=== PATIENT | male | born 1960 | race Caucasian/White ===

== ENCOUNTER 2024-12-07 22:47 | Inpatient (IN) | payer MEDICARE, BC, SELFPAY ==
[2024-12-07 22:50] VITALS: PULSE 108; O2SAT 92
[2024-12-07 22:57] VITALS: BP 111/74; PULSE 88; RESP 16; TEMP 36.9; O2SAT 89; BMI 28.5
--- NOTE | 2024-12-07 23:53 | XR_ITS ---
Examination: AP chest single view Technique one AP portable semiupright chest single view Exam date and time: December 08, 2024 12:19 AM Comparison March 07, 2024. INDICATIONS: Difficulty breathing today congestion and shortness of breath FINDINGS: Left perihilar pneumonia Normal heart size Moderate vascular congestion. Right internal jugular dialysis catheter tips SVC satisfactory position IMPRESSION: Significant left lung pneumonia
--- NOTE | 2024-12-07 23:55 | PD.EDAMS ---
Altered Mental Status RME/HPI General Chief Complaint: Altered Mental Status Stated Complaint: AMS Source: family Arrival date/time: 12/07/24 22:47 Mode of arrival: EMS Limitations: altered mental status RME / HPI RME / HPI narrative: Dr. Estevez?s Main ED Evaluation: 64-year-old male brought to the emergency department by ambulance due to altered mental status and severe hypoglycemia. The fire department on scene reported a blood glucose of 23 mg/dL, although the patient was still alert, oriented to person, place, time, and situation, and responsive. Upon EMS arrival, oral glucose was administered but the patient vomited shortly after. A re-check of his blood glucose showed a level of 28 mg/dL, prompting EMS to initiate a 250 mL infusion of D10. EMS also noted bilateral rhonchi on auscultation, with an oxygen saturation of 92% on a 15L non-rebreather mask (NRB). The patient's family reported a history of nausea, vomiting, and significant weight loss over the past month. He has history of gastric bypass surgery in October 2023. He has since experienced decreased oral intake, with worsening symptoms over the past few days, including an inability to keep food or fluids down. The patient is also on a regular dialysis schedule (Sunday, , and Sunday) and is under the care of bulb brander Dr. Chadwick. Related Data Home Medications ?Medication ?Instructions ?Recorded ?Confirmed cholecalciferol (vitamin D3) 50 2,000 unit PO QDAY #0 caps 12/19/15 03/07/24 mcg (2,000 unit) capsule (Vitamin D3) vitamin B complex 1 tab PO QDAY 04/01/19 03/07/24 nortriptyline 25 mg capsule 25 mg PO HS 11/12/20 03/07/24 spironolactone 50 mg tablet 50 mg PO QDAY 04/27/21 03/07/24 hydroxyzine HCl 10 mg tablet 10 mg PO QPM 03/07/24 03/07/24 insulin aspart U-100 100 unit/mL 5 unit subcut TID 03/07/24 03/07/24 (3 mL) subcutaneous pen (Novolog FlexPen U-100 Insulin aspart) isosorbide mononitrate 30 mg 30 mg PO QDAY 03/07/24 03/07/24 tablet,extended release 24 hr lisinopril 40 mg tablet 40 mg PO BID 03/07/24 03/07/24 metolazone 2.5 mg tablet 2.5 mg PO QDAY 03/07/24 03/07/24 metoprolol succinate 100 mg 100 mg PO BID 03/07/24 03/07/24 tablet,extended release 24 hr midodrine 10 mg tablet 10 mg PO TID 03/07/24 03/07/24 ursodiol 300 mg capsule 300 mg PO BID 03/07/24 03/07/24 Allergies Allergy/AdvReac Type Severity Reaction Status Date / Time house dust Allergy Verified 12/08/24 03:54 Review of Systems Review of Systems Systems Reviewed: All systems reviewed, normal except as documented Past Medical History Past Medical History NEUROLOGIC: Negative Neurological Disorders or Seizures CARDIAC: Positive Cardiac Disorders, Hypercholesterolemia and Hypertension; Negative Congestive Heart Failure RESPIRATORY: Positive Asthma, Pneumonia and Sleep Apnea; Negative Chronic Obstructive Pulmonary Disease (COPD) GASTROINTESTINAL: Positive Gastrointestinal Disorders and Gastroesophageal Reflux Disease GENITOURINARY: Positive Genitourinary Disorders, Renal Disease and Kidney Stones MUSCULOSKELETAL: Positive Musculoskeletal Disorders and Arthritis ENT: Positive Cataracts ENDOCRINE: Positive Endocrine Disorders, Diabetes Mellitus Type 2 and Hypoglycemia; Negative Diabetes Mellitus Type 1 HEMATOLOGIC: Negative Blood Disorders OTHER HISTORY: Positive Chicken Pox, Measles and Mumps; Negative Autoimmune Disease, Blood Transfusions, Blood Transfusion Reaction or Anesthesia Reactions Family History FAMILY HISTORY: Positive Family Cancer Surgical History SURGICAL: Positive Tonsillectomy and Nephrectomy Social History SMOKING STATUS: Never smoker SECOND HAND EXPOSURE: No ED Exam Narrative Physical exam: GENERAL: In general the patient is awake, interactive, in an emergency department rplain dealing. HEAD/EYES/EARS/NOSE/THROAT: normo-cephalic, atraumatic, mucus membranes are moist. No cervical tenderness palpation midline. Supple neck. CARDIOVASCULAR: regular rate and regular rhythm, no murmurs, heart sounds are not distant, strong pulses in all four extremities that are equal and symmetric bilateral upper and lower extremities, normal capillary refill. CHEST/PULMONARY: normal chest rise and fall, good air movement, clear to auscultation bilaterally, normal inspiratory to expiratory ratios without evidence of respiratory distress. ABDOMEN: soft, not tender, no masses appreciated BACK: normal range of motion without pain. NEUROLOGICAL: cranio-facial features are symmetric, moves all four extremities equally without obvious limitations or weakness. EXTREMITY: no tenderness to palpation over the long bones or large joints of the bilateral upper and lower extremities, no joint swelling, no joint erythema, no signs of trauma, no unilateral leg swelling and no peripheral edema. SKIN: warm, dry, well-perfused, no jaundice, no rash, no telangiectasias or petechia. PSYCH: calm, cooperative, no evidence of psychosis or agitation General Limitations: Present altered mental status Course Course Course Narrative: CXR is ordered for determining etiology of altered mental status. Quality Measures none Orders Category Date Time Status COVID-19 Screening Questionnaire NOW Care 12/08/24 05:37 Active Decision to Admit X1 Care 12/08/24 05:[address] abdomen pelvis wo con Stat Exams 12/08/24 02:23 Taken CXRP [XR chest 1V portable] Stat Exams 12/07/24 23:53 Taken ABG [Arterial Blood Gas] Stat Lab 12/08/24 04:16 Completed BNP [B-Type Natriuretic Peptide] Stat Lab 12/07/24 00:20 Completed Blood Culture (Lab) Stat Lab 12/08/24 03:40 Received CBC Stat Lab 12/07/24 00:20 Completed CMP [Comprehensive Metabolic Panel] Stat Lab 12/07/24 00:20 Completed Lactic Acid [Lactate (Lactic Acid)] Stat Lab 12/08/24 03:45 Results PT [Prothrombin Time with INR] Stat Lab 12/07/24 00:20 Completed PTT [Partial Thromboplastin Time] Stat Lab 12/07/24 00:20 Completed Troponin I Stat Lab 12/07/24 00:20 Completed Acetaminophen Ivpb [Ofirmev Inj] Med 12/08/24 03:39 Discontinued 1,000 mg in 100 ml IV Q6HR Dextrose 50% Syr [D50w Syringe Abboject] Med 12/08/24 00:32 Discontinued 50 ml IV X1 ONE Midodrine [Proamatine] Med 12/08/24 05:34 Discontinued 10 mg PO X1 ONE Ondansetron Inj [Zofran Inj] Med 12/07/24 23:58 Discontinued 4 mg IV X1 ONE Piper/Tazo Inj [Zosyn Inj] 3.375 gm Med 12/08/24 14:00 Pending Sodium Chloride 0.9% [Ns] 100 ml IV Q8HR Piper/Tazo Inj [Zosyn Inj] 3.375 gm Med 12/08/24 04:00 Discontinued Sodium Chloride 0.9% [Ns] 100 ml IV X1 Ringers Lactated 500 ml [Lactated Ringers] 500 ml Med 12/08/24 05:27 Active IV 999 mls/hr BiPAP / CPAP NOW RT 12/08/24 04:02 Active BiPAP / CPAP NOW RT 12/08/24 04:56 Active Vital Signs Vital signs: Vital Signs Temperature 98.4 F 12/07/24 22:57 Pulse Rate 88 12/07/24 22:57 Respiratory Rate 16 12/07/24 22:57 Blood Pressure 111/74 12/07/24 22:57 Pulse Oximetry (%) 89 L 12/07/24 22:57 Oxygen Flow Rate 15 12/07/24 22:57 Altered Mental Status MDM Narrative MDM Narrative:: The differential diagnosis includes aspiration pneumonia, pneumonia, small bowel obstruction (SBO), end-stage renal disease (ESRD), hypercalcemia, complications of his previous surgery, gastroesophageal reflux disease (GERD), and dehydration. 0400 Patient appears tachypneic. CPAP applied. Scribe Attestation: I, Gypsy Levin, am scribing for and in the presence of Dr. Estevez. Provider Notation: Although this document has been carefully reviewed, there may still be some phonetic and other typographical errors. These errors are purely grammatical due to imperfections in the software program and should not be construed in any way to compromise the substance of the patient's medical care during this visit. Patient data External records reviewed:: [facility] previous records and EMS form Clinical information provided by:: EMS and family (sister) Social determinants that could affect healthcare access:: none Patient has the following chronic illnesses:: see PMH How is presenting disease/condition affected by chronic disease/condition?: uneffected by Evaluation data The following diagnostics were reviewed and interpreted by me:: lab results, radiology exam(s) and EKG tracing(s) Lab and/or radiology exams considered but not ordered:: none Interpretation Summary: CXR, my interpretation, overall impression: left sided pneumonia I personally reviewed the radiology data and agree with the radiologist's interpretation. CT scan of the abdomen and pelvis without intravenous contrast December 08, 2024 at 0248 hours Clinical History: 64-year-old hypertension diabetes, vomiting Comparison: No prior study is available for comparison. Findings: There are multiple bilateral lungs nodular ground-glass opacities and consolidations. There is mild esophageal dilatation and wall thickening suggestive of reflux esophagitis. Coronary calcifications is present. Trace of pericardial effusion is noted. Gastric bypass surgery is noted. There are splenic and hepatic calcified granulomas. The gallbladder is distended. There is upper splenic pole ill defined hypodensity; too small to characterize. The right kidney is surgically absent . There is left kidney posterior midpole 3.0 cm cyst. The pancreas, spleen and adrenals are unremarkable on this noncontrast study. No evidence of bowel obstruction. The appendix is within normal limits (images 180-194/340 ). There is no mesenteric or retroperitoneal adenopathy. The prostate is enlarged with calcifications with its median lobe projecting within the bladder lumen. The urinary bladder is incompletely distended at the time of the examination and appears mildly thick walled. There are small fat-containing bilateral inguinal hernias. There is no free fluid or free air. There is atheromatous calcification of aorta Degenerative changes are identified in the spine. There is diffuse osteopenia. There is anterolisthesis of L4 on L5. Impression: 1. Multiple bilateral lungs nodular ground-glass opacities and consolidations, likely pneumonia. Recommend clinical correlation. 2. No evidence of bowel obstruction, free air or abscess. 3. Other findings as described above. Medications / Prescriptions Medications or Prescriptions considered but not ordered:: none Medication administrations:: Medication Administration History Piperacillin Sod/Tazobactam (Sod 3.375 gm/ Sodium Chloride) 100 mls @ 25 mls/hr IV Q8HR ERIC Stop: 12/15/24 13:59 Lactated Ringer's (Lactated Ringers) 500 mls @ 999 mls/hr IV .Q31M ONE Stop: 12/08/24 05:57 Discontinued Medications Dextrose (Dextrose 50%-Water Inj 50 Ml Syringe) 50 ml IV X1 ONE Stop: 12/08/24 00:33 Last Admin: 12/08/24 00:37 Dose: 50 ml Documented By: SCOTT Acetaminophen (Ofirmev Inj) 1,000 mg in 100 mls @ 250 mls/hr IV Q6HR ONE Stop: 12/08/24 04:02 Last Admin: 12/08/24 04:25 Dose: 250 mls/hr Documented By: EF Piperacillin Sod/Tazobactam (Sod 3.375 gm/ Sodium Chloride) 100 mls @ 200 mls/hr IV X1 ONE Stop: 12/08/24 04:29 Last Admin: 12/08/24 04:19 Dose: 200 mls/hr Documented By: EF Midodrine (Midodrine 5 Mg Tablet) 10 mg PO X1 ONE Stop: 12/08/24 05:35 Last Admin: 12/08/24 05:41 Dose: 10 mg Documented By: EF Ondansetron HCl (Ondansetron Inj 2 Mg/Ml Inj 2 Ml) 4 mg IV X1 ONE; Protocol Stop: 12/07/24 23:59 Last Admin: 12/08/24 00:03 Dose: 4 mg Documented By: AC as above if any Consultations Consultation(s) initiated? (list below): Yes Diagnosis Differential diagnosis altered mental status: other (see narrative) Most likely diagnosis given after review of the tests above:: see clinical impression Admission Indicated Admission indicated?: indicated Admission Request Was there a request for admission?: Yes Admission Attestation Admission request attestation: Discussed case with [] from Hospitalist service regarding admission. Discussed patients ED course, exam findings, labs, and radiology results. The Hospitalist [agrees,declines] to accept the patient for admission. Disposition Plan Disposition Plan: Admit Critical Care Time Critical Care Time Critical Care Time: Yes Total Critical Care Time (min.): 45 Attestation: The high probability of sudden, clinically significant deterioration in the patient?s condition required the highest level of my preparedness to intervene urgently. ? The services I provided to this patient were to treat and/or prevent clinically significant deterioration. Services included the following: chart data review, reviewing nursing notes and/or old charts, documentation time, child development consultant collaboration regarding findings and treatment options, medication orders and management, direct patient care, vital sign assessments and ordering, interpreting and reviewing diagnostic studies and lab tests. ? Aggregate critical care time includes only time during which I was engaged in work directly related to the patient?s care, as described above, whether at bedside or elsewhere in the Emergency Department. It did not include time spent performing other reported procedures or the services of residents, students, nurses or physician assistants. Discharge Plan Plan Patient Disposition: Admit Acute Care w/in Hospital Patient condition on transfer: Stable Prescriptions/Referrals Prescriptions/Med Rec: No Action nortriptyline 25 mg capsule 25 mg PO HS spironolactone 50 mg tablet 50 mg PO QDAY cholecalciferol (vitamin D3) [Vitamin D3] 2,000 UNIT capsule 2,000 unit PO QDAY Qty: 0 vitamin B complex Tablet 1 tab PO QDAY metolazone 2.5 mg tablet 2.5 mg PO QDAY isosorbide mononitrate 30 mg tablet extended release 24 hr 30 mg PO QDAY metoprolol succinate 100 mg tablet extended release 24 hr 100 mg PO BID Patient Comments: TAKE 1 TABLET BY MOUTH TWICE DAILY ursodiol 300 mg capsule 300 mg PO BID hydroxyzine HCl 10 mg tablet 10 mg PO QPM Patient Comments: TAKE 1 TABLET BY MOUTH NIGHTLY lisinopril 40 mg tablet 40 mg PO BID midodrine 10 mg Tablet 10 mg PO TID Rx Instructions: do not give last dose of day after 6PM or within 4 hrs of bedtime insulin aspart U-100 [Novolog FlexPen U-100 Insulin] 100 unit/mL (3 mL) insulin pen 5 unit SUBCUT TID Patient Comments: INJECT 5 UNIT SUBCUTANEOUSLY 3 TIMES A DAY BEFORE MEALS Referrals: Sunil Chadwick MD [Primary Care Provider] - In 1 week Problem List Clinical Impression: Sepsis, Left lower lobe pneumonia, ESRD on hemodialysis, Elevated lactic acid level Patient/Caregiver Discharge Instructions Print Language: [place] Stand Alone Forms: [facility] Award Info., Patient Portal Info Letter
[2024-12-08] VITALS (132 sets, daily range): BP systolic 63–131; BP diastolic 45–109; PULSE 64–145; RESP 5–35; TEMP 36.6–37.9; O2SAT 65–100
[2024-12-08] MEDS: ONDANSETRON INJ 2 MG/ML INJ 2 ML 4 MG IV (00:03)
--- NOTE | 2024-12-08 00:32 | PC.NURSE ---
PT BLOOD SUGAR 47. DR. BUNCH MADE AWARE. VERBAL ORDER RECEIVED FOR 1 AMP D50 IV
[2024-12-08] MEDS: DEXTROSE 50%-WATER INJ 50 ML SYRINGE IV (00:37)
[2024-12-08 00:56] LABS: Hematocrit 37.7 % (41.0-53.0); Hemoglobin 13.1 g/dL (13.5-16.0); Mean Corpuscular HGB Conc 34.7 g/dl (31.0-37.0); Mean Corpuscular Hemoglobin 33.5 pg (25.0-35.0); Mean Corpuscular Volume 96 fL (80-100); Red Blood Count 3.91 Miln/mm3 (4.50-5.90); White Blood Count 14.5 Thou/mm3 (3.8-10.6)
[2024-12-08 00:57] LABS: Basophils # (Auto) 0.1 Thou/mm3 (0.0-0.2); Basophils % (Auto) 0 % (0-2.5); Eosinophils % (Auto) 0 % (0-10); Immature Granulocytes % (Auto) 1 % (0-0); Immature Granulocytes Auto 0.07 Thou/mm3 (0.00-0.00); Lymphocytes # (Auto) 1.7 Thou/mm3 (1.0-4.8); Lymphocytes % (Auto) 12 % (10-50); Monocytes % (Auto) 7 % (0-12); Neutrophils # (Auto) 11.6 Thou/mm3 (1.8-7.7); Neutrophils % (Auto) 80 % (37-80); Nucleated Red Blood Cell % 0 /100 WBC (0); Platelet Count 231 Thou/mm3 (140-440); RDW Standard Deviation 46.2 fL (35.1-43.9)
[2024-12-08 01:14] LABS: B-Type Natriuretic Peptide 50 pg/mL (0-100)
[2024-12-08 01:17] LABS: Prothrombin Time 10.9 Seconds (9.0-12.2)
[2024-12-08 01:33] LABS: Alanine Aminotransferase < 7 U/L (10-49); Albumin, Serum 3.9 gm/dL (3.4-4.8); Albumin/Globulin Ratio 1.3 (1.2-2.2); Alkaline Phosphatase 131 U/L (46-116); Anion Gap 12 (7-16); Aspartate Amino Transferase 11 U/L (0-34); BUN/Creatinine Ratio 5 Ratio (12-20); Bilirubin,Total 0.2 mg/dL (0.3-1.2); Blood Urea Nitrogen 24 mg/dL (9-23); Calcium (Corrected) 10.1 mg/dL (8.5-10.1); Chloride 92 mMol/L (98-107); Creatinine (Component) 4.5 mg/dL (0.6-1.3); Estimated Creatinine Clearance 18.4 mL/min (>60); Globulin 3.1 gm/dL (2.3-3.5); Osmolality,Calculated 272 (275-295); Sodium 136 mMol/L (136-145); Troponin I < 0.020 ng/mL (0.0-0.045); eGFR 14 See Note
[2024-12-08 01:36] LABS: Glucose 42 mg/dL (74-106)
--- NOTE | 2024-12-08 02:23 | XR_ITS ---
Examination: CT abdomen and pelvis without contrast. Coronal 3-D reconstructions. Sagittal 2-D reconstructions. Date and time of exam:December 08, 2024 at 0248 hours Comparison December 24, 2020 INDICATIONS: Hypertension abdominal pain and distention today, diagnosis hypertension and diabetes CTDI: vol (mGy): 11.01 DLP: (mGycm): 749 Technique: Axial images of the abdomen have been obtained, 3 mm slice thickness Intravenous contrast material has not been administered. Low dose protocols were performed. One or more of the following dose reduction techniques were used; automated exposure control, adjustment of the mA and/or KV according to patient size, use of iterative reconstruction technique. Findings: Severe bilateral nodular lung opacity, consider CT chest without contrast follow-up to assess pneumonia and possible pulmonary nodular metastatic disease Trace pericardial effusion Small retrocardiac gastric hernia Gastric surgery Mildly distended gallbladder No focal liver lesions Splenic calcification No pancreatic or adrenal mass Absent right kidney No left hydronephrosis Abdominal aortic calcification no aneurysmal dilatation Normal appendix No bowel obstruction No diverticulitis Mild thickening of the urinary bladder wall up to 5 mm Fat containing inguinal hernias. No significant prostatomegaly Grade 1 anterolisthesis of L4 on L5 Moderate narrowing hip joints of IMPRESSION: Severe bilateral nodular lung opacities, differential would include pneumonia, pulmonary nodular metastatic disease not excluded, recommend CT chest without contrast follow-up Recommend hepatobiliary sonography to assess mildly distended gallbladder Absent right kidney Normal appendix No bowel obstruction. Cystitis bilateral
--- NOTE | 2024-12-08 03:50 | PC.NURSE ---
Called RT to evaluate pt.
--- NOTE | 2024-12-08 03:53 | PC.NURSE ---
Covering primary RN for lunch. Called RT to evaluate pt's oxygen needs as he is satting in the mid 80's on NRB. Called [facility] for IV tylenol as we do not have it stocked in ED.
[2024-12-08] MEDS: PIPER/TAZO INJ 3.375 GM in SODIUM CHLORIDE 0.9% 100 ML IV (04:19)
[2024-12-08 04:22] LABS: Base Excess 0 (-3-3); HCO3 23 mEq/L (20-26); Inspired Oxygen, FIO2 100 %; O2 Saturation 94 % (91-98); PCO2 33 mmHg (32.0-48.0); PO2 69 mmHg (83-108); pH, Arterial 7.45 (7.35-7.45)
[2024-12-08] MEDS: ACETAMINOPHEN IVPB 1,000 MG/100 ML VIAL 250 MG IV (04:25)
[2024-12-08 04:27] LABS: Allen Test Performed/OK; Puncture Site Left Radial
[2024-12-08 04:27] LABS: Lactate (Lactic Acid) 7.9 mMol/L (0.4-2.0)
--- NOTE | 2024-12-08 04:30 | PRELIM_ITS ---
CT scan of the abdomen and pelvis without intravenous contrast (axial sections with sagittal and coronal reformats) December 08, 2024 at 0248 hours Clinical History: 64-year-old hypertension diabetes, vomiting Comparison: No prior study is available for comparison. Findings: There are multiple bilateral lungs nodular ground-glass opacities and consolidations. There is mild esophageal dilatation and wall thickening suggestive of reflux esophagitis. Coronary calcifications is present. Trace of pericardial effusion is noted. Gastric bypass surgery is noted. There are splenic and hepatic calcified granulomas. The gallbladder is distended. There is upper splenic pole ill defined hypodensity; too small to characterize. The right kidney is surgically absent . There is left kidney posterior midpole 3.0 cm cyst. The pancreas, spleen and adrenals are unremarka ble on this noncontrast study. No evidence of bowel obstruction. The appendix is within normal limits (images 180-194/340 ). There is no mesenteric or retroperitoneal adenopathy. The prostate is enlarged with calcifications with its median lobe projecting within the bladder lumen. The urinary bladder is incompletely distended at the time of the examination and appears mildly thick walled. There are small fat- containing bilateral inguinal hernias. There is no free fluid or free air. There is atheromatous calcification of aorta Degenerative changes are identified in the spine. There is diffuse osteopenia. There is anterolisthesis of L4 on L5. Impression: 1. Multiple bilateral lungs nodular ground-glass opacities and consolidations, likely pneumonia. Recommend clinical correlation. 2. No evidence of bowel obstruction, free air or abscess. 3. Other findings as described above. Report Electronically Signed By: Kina Aldridge 12/08/2024 4:30:07 AM [EST]
--- NOTE | 2024-12-08 04:55 | PC.RT ---
settings changed to 10/5 per abg results.
[2024-12-08] MEDS: MIDODRINE 5 MG TABLET 10 MG PO (05:41)
[2024-12-08] MEDS: ALBUMIN HUMAN 25% IVPB 25 GM/100 ML BTL IV (06:03)
[2024-12-08] MEDS: RINGERS LACTATED 1000 ML 1,000 ML 999 ML IV ×2 (06:18→17:00)
--- NOTE | 2024-12-08 06:18 | PC.RT ---
at 4:10 settings adjusted to 12/5, due to pt tidal volumes in the 1500, pt RR in the 30s abg drawn at 04:16.
[2024-12-08] MEDS: SODIUM CHLORIDE 0.9% 500 ML 500 ML 999 ML IV (06:19)
--- NOTE | 2024-12-08 06:29 | ECHO_ITS ---
Transthoracic Echo Report Ht (in): 69 Wt (lb): 193 Exam Location: Echo Lab Status: Inpatient Staff Weapons Officer: Ana Francis Indications: Procedure Performed: BP: 95 / 57 HR: 83 Technical Quality: Very technically difficult study MEASUREMENTS (Male / Female) Normal Values 2D ECHO LV Diastolic Diameter PLAX 3.5 cm 4.2 - 5.9 / 3.9 - 5.3 cm LV Systolic Diameter PLAX 2.6 cm IVS Diastolic Thickness 0.9 cm 0.6 - 1.0 / 0.6 - 0.9 cm LVPW Diastolic Thickness 1.0 cm 0.6 - 1.0 / 0.6 - 0.9 cm LV Relative Wall Thickness 0.5 LVOT Diameter 1.9 cm LV Ejection Fraction MOD 4C 51.7 % LV Cardiac Index MOD 4C 1481.6 cm?/min?m? LV Ejection Fraction 4C AL 52.7 % LV Cardiac Index 4C AL 1560.1 cm?/min?m? LA Volume Index 17.0 cm?/m? 16 - 28 cm?/m? DOPPLER AV Peak Velocity 156.0 cm/s AV Peak Gradient 9.7 mmHg AV Mean Gradient 5.0 mmHg AV Velocity Time Integral 27.5 cm LVOT Peak Velocity 132.0 cm/s LVOT Peak Gradient 7.0 mmHg LVOT Velocity Time Integral 25.5 cm LVOT Cardiac Index 2879.5 cm?/min?m? AV Area Cont Eq vti 2.6 cm? AV Area Cont Eq pk 2.4 cm? MV Area PHT 2.9 cm? MR Peak Velocity 257.0 cm/s MR Peak Gradient 26.4 mmHg Mitral E Point Velocity 74.7 cm/s Mitral A Point Velocity 127.0 cm/s Mitral E to A Ratio 0.6 LV E' Lateral Velocity 7.0 cm/s Mitral E to LV E' Lateral Ratio 10.7 LV E' Septal Velocity 5.9 cm/s Mitral E to LV E' Septal Ratio 12.7 FINDINGS Left Ventricle Normal left ventricular size, wall thickness and systolic function with no obvious regional wall motion abnormalities. Normal left ventricular diastolic filling pattern for age. The ejection fraction is visually estimated at 60%. Right Ventricle The right ventricular systolic function is normal. Left Atrium The left atrium is normal by two-dimensional, color flow and Doppler imaging with no structural abnormalities, no thrombus formation present. Right Atrium The right atrium is normal by two-dimensional imaging, color flow and Doppler imaging with no structural abnormalities, no thrombus formation present. Atrial Septum The interatrial septum appears normal with no evidence of a shunt. Aorta The aorta is normal by two-dimensional, color flow and Doppler interrogation. Mitral Valve The mitral valve is normal by two-dimensional, color flow and Doppler interrogation. There is mild mitral valve regurgitation, stenosis or prolapse. Aortic Valve The aortic valve is trileaflet and normal by two-dimensional, color flow and Doppler interrogation. There is no significant aortic valve regurgitation. Tricuspid Valve The tricuspid valve is normal by two-dimensional, color flow and Doppler interrogation. There is no significant tricuspid valve regurgitation. Pulmonic Valve The pulmonic valve is not well visualized. There is no significant pulmonic valve regurgitation. Vessels Inferior vena cava not well visualized. Pericardium The pericardium is normal by two-dimensional imaging. There is no significant pericardial effusion. CONCLUSIONS Indication: AHRF all the cardiac structures suboptimally visalized. Normal LV size and wall thickness. Estimated EF 60%. RV systolic function is normal. Aortic valve sclerosis with no stenosis Trace mitral and trace tricuspid regurgitation Glenna Mckay (Electronically Signed) Final Date: 09 December 2024 08:40
--- NOTE | 2024-12-08 06:38 | PD.RESHP ---
Documentation for date of: 12/08/24 HPI History of Present Illness History of present illness: Mr. Gonzalez is a 64-year-old male with past medical history of end-stage renal disease (TTS under vat tender Dr. Chadwick), obstructive sleep apnea on CPAP, hypertension, type 2 diabetes mellitus and status post gastric bypass 2022 who presented to [facility] emergency department on 12/07/2024 due to altered mental status and severe hypoglycemia. Patient was found by EMS, patient was alert and oriented x 3 but patient's blood glucose was found to be 28 mg/dL, prompting EMS to initiate to 50 cc infusion of D10. Patient did have episode of emesis., Patient was noted to have bilateral rhonchi, oxygen saturation 92% on 15 L nonrebreather mask. Per the patient he has been feeling more weak lethargic and tired since the last few days with worsening of symptoms which are progressive. Patient was found to be SIRS positive (tachycardic tachypneic, leukocytosis, WBC 14.5) in ED, sepsis alert was called lactate was found to be 7.9. Patient was started on BiPAP because of increased work of breathing and hypoxic failure in ED, CT abdomen pelvis showed bilateral groundglass opacities in lungs, chest x-ray showed bilateral pneumonia. At bedside patient's mean arterial pressure was found to be in low 50s, patient was given 1.5 L fluid bolus, albumin 25% and home dose midodrine, mean arterial pressure improved. ED Course: ED Vitals: On presentation BP 111/74, P88, RR 16, temp 98.4, O2 sat 89 on 15 L via oxy mask ED Labs:On presentation ED labs significant for WBC 14.5, hemoglobin 13.1 ABG showed pH 7.45, pCO2 33, pO2 69 chemistry significant for sodium 136, potassium 3.0, chloride 92, carbon dioxide 32, BUN 24, creatinine 4.5, GFR 14 osmolality 272, glucose 42 bilirubin 0.2 alk phos 131 lactate 7.9 ED Imaging:Preliminary report for CT abdomen pelvis shows multiple bilateral lung nodular groundglass opacities and consolidations likely pneumonia splenic and hepatic calcified granulomas right kidney surgically absent midpole 3.0 cm cyst in left kidney large prostate with calcification. Chest x-ray significant for bilateral pneumonia. ED Treatment:Patient was given Zofran 4 mg x 1, dextrose 50 cc x 1, Zosyn x 1, Tylenol 1000 mg x 1 in ED. Patient was started on BiPAP. Review of Systems Review of Systems ROS Unobtainable: unobtainable due to medical condition (On BiPAP) Past Medical History Past Medical History NEUROLOGIC: Negative Neurological Disorders or Seizures CARDIAC: Positive Cardiac Disorders, Hypercholesterolemia and Hypertension; Negative Congestive Heart Failure RESPIRATORY: Positive Asthma, Pneumonia and Sleep Apnea; Negative Chronic Obstructive Pulmonary Disease (COPD) GASTROINTESTINAL: Positive Gastrointestinal Disorders and Gastroesophageal Reflux Disease GENITOURINARY: Positive Genitourinary Disorders, Renal Disease and Kidney Stones MUSCULOSKELETAL: Positive Musculoskeletal Disorders and Arthritis ENT: Positive Cataracts ENDOCRINE: Positive Endocrine Disorders, Diabetes Mellitus Type 2 and Hypoglycemia; Negative Diabetes Mellitus Type 1 HEMATOLOGIC: Negative Blood Disorders OTHER HISTORY: Positive Chicken Pox, Measles and Mumps; Negative Autoimmune Disease, Blood Transfusions, Blood Transfusion Reaction or Anesthesia Reactions Family History FAMILY HISTORY: Positive Family Cancer Surgical History SURGICAL: Positive Tonsillectomy and Nephrectomy Social History SMOKING STATUS: Never smoker SECOND HAND EXPOSURE: No Exam Vital Signs Temp Pulse Resp BP Pulse Ox O2 Del Method O2 Flow Rate 98 F 123 H 25 H 84/63 L 100 BiPAP 15 12/08/24 02:25 12/08/24 06:05 12/08/24 06:05 12/08/24 05:41 12/08/24 06:05 12/08/24 04:01 12/08/24 03:56 FiO2 100 12/08/24 06:05 Narrative Exam Physical Exam General: Awake and in acute distress. Conversational, on BiPAP, saturating 100%. HEENT: Normocephalic, atraumatic, mucous membranes dry. Heart: Tachycardic, regular rhythm, no murmurs. Lungs: Clear to auscultation with no wheezing or crackles. Good air entry appreciated Abdomen: Soft, obese, nondistended, nontender, positive bowel sounds. ?No guarding or rebound tenderness. Neurologic: Alert and oriented x3, no gross neurological deficit, and patient able to move all 4 extremities. Extremities: No edema. Skin: No rash or ecchymoses. Results: Labs 12/08/24 07:04 12/08/24 15:30 Labs: Short CBC 12/07/24 Range/Units 00:20 WBC 14.5 H (3.8-10.6) Thou/mm3 Hgb 13.1 L (13.5-16.0) g/dL Hct 37.7 L (41.0-53.0) % Plt Count 231 (140-440) Thou/mm3 BMP 12/07/24 00:20 Sodium 136 Potassium 3.0 L Chloride 92 L Carbon Dioxide 32.0 H BUN 24 H Creatinine 4.5 H* Glucose 42 L* Calcium 10.0 Cardiac Enzymes 12/07/24 Range/Units 00:20 Troponin I < 0.020 (0.0-0.045) ng/mL Liver Function 12/07/24 Range/Units 00:20 Total Bilirubin 0.2 L (0.3-1.2) mg/dL AST 11 (0-34) U/L ALT < 7 L (10-49) U/L Alkaline Phosphatase 131 H (46-116) U/L Albumin 3.9 (3.4-4.8) gm/dL ABG Interpretation ABG results: 12/08/24 04:16 ABG pH 7.45 ABG pCO2 33 ABG pO2 69 L ABG HCO3 23 ABG O2 Saturation 94 ABG Base Excess 0 Quality Measures Quality Measures none Medications Home Medications and Allergies Home Medications ?Medication ?Instructions ?Recorded ?Confirmed ?Type cholecalciferol (vitamin D3) 50 2,000 unit PO QDAY #0 caps 12/19/15 03/07/24 History mcg (2,000 unit) capsule (Vitamin D3) vitamin B complex 1 tab PO QDAY 04/01/19 03/07/24 History nortriptyline 25 mg capsule 25 mg PO HS 11/12/20 03/07/24 History spironolactone 50 mg tablet 50 mg PO QDAY 04/27/21 03/07/24 History hydroxyzine HCl 10 mg tablet 10 mg PO QPM 03/07/24 03/07/24 History insulin aspart U-100 100 unit/mL 5 unit subcut TID 03/07/24 03/07/24 History (3 mL) subcutaneous pen (Novolog FlexPen U-100 Insulin aspart) isosorbide mononitrate 30 mg 30 mg PO QDAY 03/07/24 03/07/24 History tablet,extended release 24 hr lisinopril 40 mg tablet 40 mg PO BID 03/07/24 03/07/24 History metolazone 2.5 mg tablet 2.5 mg PO QDAY 03/07/24 03/07/24 History metoprolol succinate 100 mg 100 mg PO BID 03/07/24 03/07/24 History tablet,extended release 24 hr midodrine 10 mg tablet 10 mg PO TID 03/07/24 03/07/24 History ursodiol 300 mg capsule 300 mg PO BID 03/07/24 03/07/24 History Allergies Allergy/AdvReac Type Severity Reaction Status Date / Time house dust Allergy Verified 12/08/24 03:54 Visit Medications Acetaminophen (Acetaminophen 325 Mg Tablet) 650 mg PO Q6H PRN PRN Reason: Fever >101.5 Stop: 01/07/25 06:24 Albuterol/Ipratropium (Albuterol/Ipratropium (Duoneb) Rt Susy 3 Ml Nebu) 3 ml INH Q4HRRT PRN PRN Reason: SOB, Wheezing Stop: 01/07/25 06:59 Heparin Sodium (Porcine) (Heparin Sod Inj 5000 Unit/Ml Vial) 5,000 unit SC Q8HR [facility] Stop: 12/22/24 13:59 Albumin Human (Albuminar-25 Ivpb) 25 gm in 100 mls @ 100 mls/hr IV QDAY [facility] Stop: 12/11/24 05:56 Last Admin: 12/08/24 06:03 Dose: 100 mls/hr Lactated Ringer's (Lactated Ringers) 1,000 mls @ 999 mls/hr IV .Q1H1M ONE Stop: 12/08/24 07:12 Last Admin: 12/08/24 06:18 Dose: 999 mls/hr Sodium Chloride (Ns) 500 mls @ 999 mls/hr IV .Q31M ONE Stop: 12/08/24 06:47 Last Admin: 12/08/24 06:19 Dose: 999 mls/hr Piperacillin/Tazobactam/Dextrose (Zosyn) 3.375 gm in 50 mls @ 12.5 mls/hr IV Q12HR [facility] Stop: 12/15/24 20:59 Midodrine (Midodrine 5 Mg Tablet) 10 mg PO TID [facility] Stop: 01/07/25 13:59 Pantoprazole Sodium (Pantoprazole Inj 40 Mg Vial) 40 mg IVP QDAY [facility] Stop: 01/07/25 08:59 Pharmacy Consult (Vancomycin Pharmacy To Dose 1 Each Each) 1 each IV QDAY PRN PRN Reason: CONSULT Stop: 01/07/25 08:59 Sennosides (Senna Tablet) 1 tab PO QDAY PRN; Protocol PRN Reason: constipation Stop: 01/07/25 06:24 Discontinued Medications Dextrose (Dextrose 50%-Water Inj 50 Ml Syringe) 50 ml IV X1 ONE Stop: 12/08/24 00:33 Last Admin: 12/08/24 00:37 Dose: 50 ml Acetaminophen (Ofirmev Inj) 1,000 mg in 100 mls @ 250 mls/hr IV Q6HR ONE Stop: 12/08/24 04:02 Last Admin: 12/08/24 04:25 Dose: 250 mls/hr Piperacillin Sod/Tazobactam (Sod 3.375 gm/ Sodium Chloride) 100 mls @ 200 mls/hr IV X1 ONE Stop: 12/08/24 04:29 Last Admin: 12/08/24 04:19 Dose: 200 mls/hr Lactated Ringer's (Lactated Ringers) 500 mls @ 999 mls/hr IV .Q31M ONE Stop: 12/08/24 05:57 Last Admin: 12/08/24 06:10 Dose: Not Given Midodrine (Midodrine 5 Mg Tablet) 10 mg PO X1 ONE Stop: 12/08/24 05:35 Last Admin: 12/08/24 05:41 Dose: 10 mg Ondansetron HCl (Ondansetron Inj 2 Mg/Ml Inj 2 Ml) 4 mg IV X1 ONE; Protocol Stop: 12/07/24 23:59 Last Admin: 12/08/24 00:03 Dose: 4 mg Sodium Chloride (Sodium Chloride Rt 10% 15 Ml Nebu) 5 ml INH X1 ONE Stop: 12/08/24 06:31 Assessment & Plan Plan Assessment and Plan: Summary: Mr. Gonzalez is a 64-year-old male with past medical history of end-stage renal disease (TTS under vat tender Dr. Chadwick), obstructive sleep apnea on CPAP, hypertension, type 2 diabetes mellitus and status post gastric bypass 2022 who presented to [facility] emergency department on 12/07/2024 due to altered mental status and severe hypoglycemia. Patient admitted to hospital in setting of severe sepsis, acute hypoxic respiratory failure secondary to bilateral pneumonia. # Acute hypoxic respiratory failure # Severe sepsis # Bilateral pneumonia # Leukocytosis # Obstructive sleep apnea Patient SpO2 low, was hypoxic on 15 L oxygen, was eventually placed on BiPAP to assist with hypoxia. Otherwise patient noted to be SIRS positive 3/4, tachycardic, tachypneic and leukocytosis. CT abdomen pelvis shows shows groundglass opacities bilateral consolidations on lower lobes. Chest x-ray significant for bilateral pneumonia Plan: -Continue BiPAP -Started on Zosyn and vancomycin (12/08- -patient was given 1.5 L fluid bolus, currently on IV albumin -Resumed home dose midodrine and fludrocortisone -Monitor MAP closely -Ordered bedside COVID, MRSA nasal screen, bedside flu and RSV -Ordered echo -DuoNebs as needed # Hypoglycemia resolved # Type 2 diabetes mellitus Patient initially presented with hypoglycemia, was given an amp of dextrose x 1, continued D10 from EMS eventually hypoglycemia improved Plan: -Sliding scale insulin -Fingersticks every 6 hours -Follow A1c in a.m. # Electrolyte imbalance # Hypokalemia Replace electrolytes as needed # End-stage renal disease Patient on dialysis Sunday and Sunday Resume dialysis inpatient Consulted nephrology # Hypertension Hold medications, blood pressure soft DVT prophylaxis: Heparin every 8 hours GI prophylaxis: IV Protonix Diet: N.p.o. Lines: Peripheral IV Code status: Full code Case discussed with Attending Dr. Conte. Jodi Flores PGY1 Disclaimer: This note was dictated by speech recognition. Minor errors in medical billing and coding instructor may be present due to voice recognition software. Attending Provider Attestation/Addendum I attest that I was physically present for the evaluation, physical examination, lab and imaging review of the patient with the residents. I discussed the case with the residents and agree with the findings and plans of care as documented above. Patient is a 64 years old male with past medical history of ESRD on hemodialysis, CRISTIANO on CPAP, hypertension, diabetes mellitus, status post gastric bypass surgery who presented to the ED with complaint of altered mental status and severe hypoglycemia. Patient was found to have blood glucose level of 28 by the EMS and received glucose infusion. Patient had an episode of vomiting. He also noted that he has taken insulin which she takes as needed when his blood glucose is high. At the time of examination, patient was already alert and oriented able to answer questions and follow commands appropriately. In the ED, he was found to have elevated respiratory rate, tachycardia. He was also found to be hypoxic, initially put on oxygen mask but later switched to BiPAP. On labs, his WBC count is 14.5, BUN/creatinine of 24/4.5, glucose 42, lactate 7.9. CT abdomen/pelvis was done, which showed multiple bilateral lung nodular groundglass opacities and consolidations, likely pneumonia, splenic and hepatic calcified granulomas, surgically absent right kidney. Chest x-ray was also done, which was significant for bilateral pneumonia. We will admit patient for management of acute hypoxic respiratory failure, severe sepsis secondary to bilateral pneumonia. We will start him on IV Zosyn and vancomycin, received 1.5 L of IV fluid bolus as patient was having soft blood pressure in the ED, which improved with the fluid bolus to MAP of 70s. We will also resume his home midodrine and fludrocortisone. We will start him on DuoNebs, obtain COVID, MRSA, flu and RSV along with echocardiography. Hypoglycemia had already been resolved but we will continue to monitor his glucose levels closely, if starts to go up we will start sliding scale insulin. Patient also noted to have electrolyte imbalances we will replete his electrolytes as needed. We will obtain nephrology consult for arrangement of his dialysis. Rae Conte MD
--- NOTE | 2024-12-08 06:41 | PC.NURSE ---
bp 70/58 dr franklin aware no new orders recieved at the moment
[2024-12-08 06:47] LABS: Reflex Lactate? Y
[2024-12-08] MEDS: ALBUTEROL/IPRATROPIUM (Duoneb) RT SOL 3 ML NEBU INH (06:49)
[2024-12-08] MEDS: RINGERS LACTATED 500 ML 500 ML 999 ML IV (06:57)
[2024-12-08 07:12] LABS: Lactate (Lactic Acid) 3.9 mMol/L (0.4-2.0)
--- NOTE | 2024-12-08 07:17 | PD.EVENT ---
Documentation for date of: 12/08/24 Event Note Event Note: Following admission, called by the nurse because of decreasing blood pressure. At bedside patient's blood pressure keep on dropping, MAP going down up to 55. Patient was alert and oriented, able to answer questions and follow commands all along. Ordered 1.5 L of IV fluid bolus and 25 g of albumin. Patient's blood pressure improved to MAP of low 70s. He also received 10 mg of midodrine p.o. and 0.1 mg of fludrocortisone p.o. which he takes at home. Despite this, his blood pressure started going down again. Discussed with the admin assistant, ordered 500 cc more of IV fluid bolus. Patient's map still around 66. Decided to transfer patient to ICU for possible septic shock possibly needing vasopressors. Rae Conte MD
[2024-12-08 07:22] LABS: Basophils % (Auto) 1 % (0-2.5); Eosinophils % (Auto) 0 % (0-10); Hematocrit 37.6 % (41.0-53.0); Hemoglobin 13.4 g/dL (13.5-16.0); Immature Granulocytes % (Auto) 1 % (0-0); Immature Granulocytes Auto 0.03 Thou/mm3 (0.00-0.00); Lymphocytes # (Auto) 0.8 Thou/mm3 (1.0-4.8); Lymphocytes % (Auto) 21 % (10-50); Mean Corpuscular HGB Conc 35.6 g/dl (31.0-37.0); Mean Corpuscular Hemoglobin 33.6 pg (25.0-35.0); Mean Corpuscular Volume 94 fL (80-100); Monocytes # (Auto) 0.5 Thou/mm3 (0.0-0.8); Monocytes % (Auto) 13 % (0-12); Neutrophils # (Auto) 2.3 Thou/mm3 (1.8-7.7); Neutrophils % (Auto) 65 % (37-80); Nucleated Red Blood Cell % 0 /100 WBC (0); Platelet Count 158 Thou/mm3 (140-440); RDW Standard Deviation 44.8 fL (35.1-43.9); Red Blood Count 3.99 Miln/mm3 (4.50-5.90); White Blood Count 3.6 Thou/mm3 (3.8-10.6)
[2024-12-08] MEDS: VANCOMYCIN/NS 1 GM IVPB 200 ML IV (07:34)
[2024-12-08 07:35] LABS: Alanine Aminotransferase < 7 U/L (10-49); Albumin, Serum 3.4 gm/dL (3.4-4.8); Albumin/Globulin Ratio 1.4 (1.2-2.2); Alkaline Phosphatase 96 U/L (46-116); Anion Gap 13 (7-16); Aspartate Amino Transferase 11 U/L (0-34); BUN/Creatinine Ratio 6 Ratio (12-20); Bilirubin,Total 0.5 mg/dL (0.3-1.2); Blood Urea Nitrogen 25 mg/dL (9-23); Calcium 9.4 mg/dL (8.3-10.6); Calcium (Corrected) 9.9 mg/dL (8.5-10.1); Carbon Dioxide 25.6 mMol/L (20.0-31.0); Chloride 95 mMol/L (98-107); Creatinine (Component) 4.5 mg/dL (0.6-1.3); Estimated Creatinine Clearance 18.4 mL/min (>60); Globulin 2.4 gm/dL (2.3-3.5); Glucose 220 mg/dL (74-106); Magnesium 1.7 mg/dL (1.6-2.6); Osmolality,Calculated 279 (275-295); Phosphorous 2.5 mg/dL (2.4-5.1); Sodium 134 mMol/L (136-145); Total Protein 5.8 gm/dL (5.7-8.2); eGFR 14 See Note
[2024-12-08 07:39] LABS: Potassium 2.6 mMol/L (3.4-5.1)
[2024-12-08 08:38] LABS: Hepatitis A Antibody IgM Non Reactive (Non React); Hepatitis B Core Antibody IgM Non Reactive (Non React); Hepatitis B Surface Ab NonReact(Not Immune) (Immune); Hepatitis B Surface Antigen Non Reactive (Non React); Hepatitis C Antibody Non Reactive (Non React)
[2024-12-08] MEDS: PANTOPRAZOLE INJ 40 MG VIAL IVP (08:52)
--- NOTE | 2024-12-08 09:28 | PC.NURSE ---
Rn reported to Rachel RN patient will transfer to room 255
[2024-12-08] MEDS: POTASSIUM CHLORIDE 10% 20 MEQ/15 ML UDC 40 MEQ PO (09:33)
[2024-12-08] MEDS: FLUDROCORTISONE ACETATE 0.1 MG TABLET PO ×3 (09:33→21:12)
--- NOTE | 2024-12-08 10:04 | PC.SS ---
Initial assessment: this is 64 year old male here for severe sepsis. Spoke with patient's sister, Maisha Mendoza as the patient out of room. Patient lives at home with sister, confirmed home demographics. Maisha assigned as patient's medical POA. Requested documentation to be provided. Per Maisha, the patient was independent with ADL's. The patient has a walker at home used on and off per Maisha. Patient also has a home CPAP machine. No home O2 used at home. Patient followed by Dr. Sunil Chadwick for primary care. Patient participates in dialysis on ,Sat schedule at 5am at [facility] followed by Dr. Chadwick. The discharge plan was discussed and Maisha informs if patient is ambulatory and alert patient to return home. Masiha states if there is a decline, she is open to placement if recommended. Patient is pending being admitted to the ICU, Maisha aware and agreeable with admission plan. D/c plan: Home Next of kin: sister, Maisha Mendoza
[2024-12-08 10:08] LABS: Reflex Lactate? Y
[2024-12-08] MEDS: Norepinephrine/D5W 8mg/250ml 8 MG/250 ML BAG 8.207 MG IV (10:30)
[2024-12-08] MEDS: POTASSIUM CHL 10 mEq IVPB 10 MEQ/100 ML BAG 100 MEQ IV (10:43)
--- NOTE | 2024-12-08 11:50 | PD.INTPROG ---
Documentation for date of: 12/08/24 Subjective Subjective Interval history: This is a 64yo M who states he was in his usual state of health earlier yesterday. In the evening he was confused and EMS was called. pts glucose was found to be low and he was given an amp of D50. In the ER he was noted to be hypoglycemic again and given additional D50. He was also hypoxic and SOB in the ER which he states now he had not been at home, of note he did have en episode of emesis en route. He was started on a bipap. He was felt to be septic and started on abx. Imaging showed b/l infiltrate in the lungs. His BP started to drift downward and he was given 1.5lt of IVF followed by another 500cc. He is on midodrine TID At home. His BP was still soft and therefore an ICU eval was requested. Critical Care Note Critical care time (min.): 80 Exam Vital Signs Temp Pulse Resp BP Pulse Ox O2 Del Method O2 Flow Rate 98 F 98 28 H 63/45 L 94 L Nasal Cannula 4 12/08/24 02:25 12/08/24 10:30 12/08/24 09:12 12/08/24 10:30 12/08/24 09:12 12/08/24 09:12 12/08/24 09:12 FiO2 100 12/08/24 09:03 Narrative Exam Gen- NAD, AAOx3, obese body habitus HEENT- NC/AT, mucosa hydrated, sclera anicteric , EOMI, bipap in place, no cervical adenopathy Chest- coarse at bases, HRRR, no increase in WOB, no chest lesions noted, R HD cath in place Abd- obese, s/nt/bs+ Ext- no edema, pulses palp, no clubbing, no mottling, moves all 4, old R arm AV fistula with no palp thrill Physical Exam Completion Physical Exam Complete?: Yes Objective - Signals Collection Technician Labs 12/08/24 07:04 12/08/24 07:04 Labs: Laboratory Results - last 24 hr 12/07/24 12/08/24 12/08/24 00:20 03:45 04:16 WBC 14.5 H RBC 3.91 L Hgb 13.1 L Hct 37.7 L MCV 96 MCH 33.5 MCHC 34.7 RDW Std Deviation 46.2 H Plt Count 231 Neut % (Auto) 80 Lymph % (Auto) 12 [place] % (Auto) 7 Eos % (Auto) 0 Baso % (Auto) 0 Neut # (Auto) 11.6 H Lymph # (Auto) 1.7 [place] # (Auto) 1.0 H Eos # (Auto) 0.0 Baso # (Auto) 0.1 Immature Gran # (Auto) 0.07 H Absolute Nucleated RBC 0.00 Immature Gran % 1 H Nucleated RBC % 0 PT 10.9 INR 1.0 APTT 25.0 Puncture Site Left Radial ABG pH 7.45 ABG pCO2 33 ABG pO2 69 L ABG HCO3 23 ABG O2 Saturation 94 ABG Base Excess 0 FiO2 100 Sodium 136 Potassium 3.0 L Chloride 92 L Carbon Dioxide 32.0 H Anion Gap 12 BUN 24 H Creatinine 4.5 H* Estim Creat Clear Calc 18.4 L eGFR 14 L* BUN/Creatinine Ratio 5 L Glucose 42 L* Calculated Osmolality 272 L Lactic Acid 7.9 H* Calcium 10.0 Corrected Calcium 10.1 Phosphorus Magnesium Total Bilirubin 0.2 L AST 11 ALT < 7 L Alkaline Phosphatase 131 H Troponin I < 0.020 B-Natriuretic Peptide 50 Total Protein 7.0 Albumin 3.9 Globulin 3.1 Albumin/Globulin Ratio 1.3 Hepatitis A IgM Ab Hep Bs Antigen Hep Bs Antibody Hep B Core IgM Ab Hepatitis C Antibody 12/08/24 07:04 WBC 3.6 L D RBC 3.99 L Hgb 13.4 L Hct 37.6 L MCV 94 MCH 33.6 MCHC 35.6 RDW Std Deviation 44.8 H Plt Count 158 D Neut % (Auto) 65 Lymph % (Auto) 21 [place] % (Auto) 13 H Eos % (Auto) 0 Baso % (Auto) 1 Neut # (Auto) 2.3 Lymph # (Auto) 0.8 L [place] # (Auto) 0.5 Eos # (Auto) 0.0 Baso # (Auto) 0.0 Immature Gran # (Auto) 0.03 H Absolute Nucleated RBC 0.00 Immature Gran % 1 H Nucleated RBC % 0 PT INR APTT Puncture Site ABG pH ABG pCO2 ABG pO2 ABG HCO3 ABG O2 Saturation ABG Base Excess FiO2 Sodium 134 L Potassium 2.6 L* Chloride 95 L Carbon Dioxide 25.6 Anion Gap 13 BUN 25 H Creatinine 4.5 H* Estim Creat Clear Calc 18.4 L eGFR 14 L* BUN/Creatinine Ratio 6 L Glucose 220 H D Calculated Osmolality 279 Lactic Acid 3.9 H Calcium 9.4 Corrected Calcium 9.9 Phosphorus 2.5 Magnesium 1.7 Total Bilirubin 0.5 AST 11 ALT < 7 L Alkaline Phosphatase 96 D Troponin I B-Natriuretic Peptide Total Protein 5.8 Albumin 3.4 D Globulin 2.4 Albumin/Globulin Ratio 1.4 Hepatitis A IgM Ab Non Reactive Hep Bs Antigen Non Reactive Hep Bs Antibody NonReact(Not Immune) L Hep B Core IgM Ab Non Reactive Hepatitis C Antibody Non Reactive Assessment & Plan Additional Assessment Additional Assessment: In summary this is a 64yo M admitted to the ICU for hypotension 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 Not felt to be cardiogenic in etiology nor obstructive. will eval for need of additional volume, likely distributive in nature and 2/2 sepsis, on abx, fu with cx, titrate vasopressors to MAP >65, fu with formal echo Resp Acute Hypoxic Resp Failure- ween FiO2 as able, have been able to come off bipap and now on HFNC Aspiration PNA- Vanc/zosyn, once cx neg then deescalate, if MRSA swab neg then can stop Vanc - CT showed some nodular changes, check dedicated Chest CT - check cocci - fu with flu/RSV CRISTIANO- CPAP qHS Renal ESRD on HD- fu with nephrology HypoK- replete PO and recheck HypoNa- mild, monitor Lactic Acidosis- 2/2 shock, give additional IVF as need to improve O2 delivery GI stable Endo DM- FS ACHS, SSI Heme Leukocytosis- pts WBC has now dropped to 3.6 -> likely due to sepsis Anemia- mild, monitor DVT proph- heparin [id number] ID Sepsis- on abx and cx pending case d/w ER and ICU team labs, imaging, records reviewed ~ 80ccmin required for eval, exam, review, intervention, discussion and formulation of POC for this critically ill pt with septic shock at high risk for further and ongoing decompensation Provider Notation Provider Notation: Although this document has been carefully reviewed, there may still be some phonetic and other typographical errors. These errors are purely grammatical due to imperfections in the software program and should not be construed in any way to compromise the substance of the patient's medical care during this visit. Thank you for the opportunity and privilege in assisting you with this patient's care and management.
--- NOTE | 2024-12-08 12:36 | XR_ITS ---
Examination: CT chest with intravenous contrast 2-D sagittal and coronal reconstructions Exam date and time: December 08, 2024 2015 hours INDICATIONS: Difficulty breathing this week, diagnosis metastatic disease versus pneumonia, diagnosis acute hypoxic respiratory failure CTDI:vol (mGy) 33.1 DLP: (mGycm) 1339 Technique: Multiple axial sections of the thorax have been obtained. Sections have been obtained, 3 mm slice thickness. Mediastinal and lung density settings have been obtained. Intravenous contrast administered, 60 cc [id number]. 2-D sagittal, coronal images obtained. Low dose protocols were performed. One or more of the following dose reduction techniques were used; automated exposure control, adjustment of the mA and/or KV according to patient size, use of iterative reconstruction technique. Findings: Suspicious for clot in the right internal jugular vein above and surrounding the dialysis catheter, axial image 29 No thoracic aortic aneurysm dilatation Pulmonary artery segments are not enlarged No pulmonary artery filling defects Severe bilateral pneumonia especially at the left lung base Trace pericardial effusion Thickening of the lower wall of the esophagus No visualized liver or splenic lesion Gallbladder is distended and the wall appears thickened No pancreatic mass Moderate osteopenia IMPRESSION: Suspicious for clot in the right internal jugular vein, recommend right upper extremity Doppler sonographic examination Severe bilateral pneumonia Thickening of the lateral wall of the esophagus, consider reflux esophagitis Distended gallbladder, gallbladder wall appears thickened, recommend hepatobiliary sonography follow-up
[2024-12-08] MEDS: RINGERS LACTATED 1000 ML 500 ML 999 ML IV ×2 (13:10→15:31)
--- NOTE | 2024-12-08 14:37 | PD.RESCONSUL ---
HPI Data of Consult Requesting Physician: Rae Conte MD Admitting Provider: Rae Conte MD Attending Provider: Rae Conte MD Primary Care Provider: Sunil Chadwick MD Consult Narrative Reason for consult: Shock History of present illness: Patient is a 64-year-old male with past medical history significant for end-stage renal disease Sunday following Dr. Chadwick, CRISTIANO on CPAP, hypertension, type 2 diabetes, gastric bypass, bilateral basal ganglia infarcts presented to the ED with hypoglycemia. Per EMS, patient was ANO x 3 but blood sugar was 28, gave D10 amp. Per patient, patient noted to be extremely weak after patient received 20 units of long-acting insulin after blood sugar at home was 300 at 4 PM yesterday. Patient's last blood sugar check prior to EMS arrival was 42. In the ED, patient had increased work of breathing, on nonrebreather mask at 15 L saturating 92% and later transitioned to BiPAP. Patient also was presenting with low MAP of 50s, and despite 2 L fluid bolus and 25 g albumin, fluid for cortisone and midodrine, patient's MAP failed to sustain at 65. Labs significant for elevated lactic acid of 7.9, leukocytosis of 14.5, and hypokalemia. Imaging showed bilateral groundglass opacities and bilateral lungs, and chest x-ray showed bilateral pneumonia. ICU was further consulted for further management of patient's distributive shock presentation. Of note, patient noted to have 40 pound weight loss in the last 2 months, along with nausea/vomiting for the last 2 months, with 2 episodes of emesis daily for both fluids and solids. Past medical history: As mentioned above Past surgical history: Gastric bypass, right nephrectomy Meds: Per med rec, patient takes Hydroxyzine 10 mg at bedtime, NovoLog 5 units 3 times a day before meals, isosorbide mononitrate 30 mg daily, lisinopril 40 mg twice daily, metolazone 2.5 mg daily, metoprolol 100 mg twice daily, midodrine 10 mg 3 times daily, midodrine 10 mg p.o. 3 times daily, nortriptyline 25 mg p.o. at bedtime, spironolactone 50 mg daily, ursodiol 300 mg p.o. twice daily, vitamin B complex daily Allergies: House dust cc:: cc: Rae Conte MD Review of Systems Review of Systems Systems Reviewed: All systems reviewed, normal except as documented Exam Vital Signs Temp Pulse Resp BP Pulse Ox O2 Del Method O2 Flow Rate 98.7 F 79 32 H 101/65 94 L Nasal Cannula 5 12/08/24 12:00 12/08/24 13:40 12/08/24 13:40 12/08/24 13:40 12/08/24 13:40 12/08/24 13:20 12/08/24 13:20 FiO2 100 12/08/24 09:03 Narrative Exam General Appearance: Pt is a well-developed, male no acute distress saturating 94% on 5 L nasal cannula. HEENT: NC/AT, no scleral icterus, no conjunctival pallor, dry mucous membranes Lungs: CTAB, no wheezes or crackles appreciated CVS: RRR, S1/S2 heard, no murmurs or rubs appreciated ABD: Tenderness on deep palpation to left upper quadrant and mild tenderness to palpation on left lower quadrant and suprapubic area, otherwise soft nondistended bowel sounds heard Skin: Chronic venous stasis in right lower hernandez, otherwise normal without any rashes, warm to touch EXT: Gentle range of motion intact, no peripheral edema Neuro: A&O x 3. GCS 15. No gross neurological deficits. Sensory grossly intact. RUE and LUE 4+/5, RLE 3-/5, LLE 3+/5 Psych: Appropriate mood and affect. Results Labs 12/08/24 07:04 12/08/24 15:30 Labs: Short CBC 12/07/24 12/08/24 Range/Units 00:20 07:04 WBC 14.5 H 3.6 L D (3.8-10.6) Thou/mm3 Hgb 13.1 L 13.4 L (13.5-16.0) g/dL Hct 37.7 L 37.6 L (41.0-53.0) % Plt Count 231 158 D (140-440) Thou/mm3 BMP 12/07/24 12/08/24 00:20 07:04 Sodium 136 134 L Potassium 3.0 L 2.6 L* Chloride 92 L 95 L Carbon Dioxide 32.0 H 25.6 BUN 24 H 25 H Creatinine 4.5 H* 4.5 H* Glucose 42 L* 220 H D Calcium 10.0 9.4 Cardiac Enzymes 12/07/24 Range/Units 00:20 Troponin I < 0.020 (0.0-0.045) ng/mL Liver Function 12/07/24 12/08/24 Range/Units 00:20 07:04 Total Bilirubin 0.2 L 0.5 (0.3-1.2) mg/dL AST 11 11 (0-34) U/L ALT < 7 L < 7 L (10-49) U/L Alkaline Phosphatase 131 H 96 D (46-116) U/L Albumin 3.9 3.4 D (3.4-4.8) gm/dL ABG Interpretation ABG results: 12/08/24 04:16 ABG pH 7.45 ABG pCO2 33 ABG pO2 69 L ABG HCO3 23 ABG O2 Saturation 94 ABG Base Excess 0 Quality Measures Quality Measures none Medications Home Medications and Allergies Home Medications ?Medication ?Instructions ?Recorded ?Confirmed ?Type cholecalciferol (vitamin D3) 50 2,000 unit PO QDAY #0 caps 12/19/15 03/07/24 History mcg (2,000 unit) capsule (Vitamin D3) vitamin B complex 1 tab PO QDAY 04/01/19 03/07/24 History nortriptyline 25 mg capsule 25 mg PO HS 11/12/20 03/07/24 History spironolactone 50 mg tablet 50 mg PO QDAY 04/27/21 03/07/24 History hydroxyzine HCl 10 mg tablet 10 mg PO QPM 03/07/24 03/07/24 History insulin aspart U-100 100 unit/mL 5 unit subcut TID 03/07/24 03/07/24 History (3 mL) subcutaneous pen (Novolog FlexPen U-100 Insulin aspart) isosorbide mononitrate 30 mg 30 mg PO QDAY 03/07/24 03/07/24 History tablet,extended release 24 hr lisinopril 40 mg tablet 40 mg PO BID 03/07/24 03/07/24 History metolazone 2.5 mg tablet 2.5 mg PO QDAY 03/07/24 03/07/24 History metoprolol succinate 100 mg 100 mg PO BID 03/07/24 03/07/24 History tablet,extended release 24 hr midodrine 10 mg tablet 10 mg PO TID 03/07/24 03/07/24 History ursodiol 300 mg capsule 300 mg PO BID 03/07/24 03/07/24 History Allergies Allergy/AdvReac Type Severity Reaction Status Date / Time house dust Allergy Verified 12/08/24 03:54 Visit Medications Acetaminophen (Acetaminophen 325 Mg Tablet) 650 mg PO Q6H PRN PRN Reason: Fever >101.5 Stop: 01/07/25 06:24 Albuterol/Ipratropium (Albuterol/Ipratropium (Duoneb) Rt Susy 3 Ml Nebu) 3 ml INH Q4HRRT PRN PRN Reason: SOB, Wheezing Stop: 01/07/25 06:59 Last Admin: 12/08/24 06:49 Dose: 3 ml Dextrose (Dextrose 50%-Water Inj 50 Ml Syringe) 25 ml IV Q15MIN PRN PRN Reason: BG 50-70 responsive npo pt Stop: 01/07/25 06:39 Dextrose (Dextrose 50%-Water Inj 50 Ml Syringe) 50 ml IV Q15MIN PRN PRN Reason: BG <50 OR BG <70 & pt unresponsive Stop: 01/07/25 06:39 Fludrocortisone Acetate (Fludrocortisone Acetate 0.1 Mg Tablet) 0.1 mg PO TID PENDING SALE TO [facility] Stop: 01/07/25 13:59 Glucagon (Glucagon Inj 1 Mg Vial) 1 mg IM Q15MIN PRN PRN Reason: BG <70, and no IV access Heparin Sodium (Porcine) (Heparin Sod Inj 5000 Unit/Ml Vial) 5,000 unit SC Q8HR PENDING SALE TO [facility] Stop: 12/22/24 13:59 Albumin Human (Albuminar-25 Ivpb) 25 gm in 100 mls @ 100 mls/hr IV QDAY ERIC Stop: 12/11/24 05:56 Last Infusion: 12/08/24 07:09 Dose: Infused Piperacillin/Tazobactam/Dextrose (Zosyn) 3.375 gm in 50 mls @ 12.5 mls/hr IV Q12HR PENDING SALE TO [facility] Stop: 12/15/24 20:59 Norepinephrine/Dextrose (Levophed In D5w 8mg/250ml) 8 mg in 250 mls @ 8.207 mls/hr IV .Q24H PRN; Protocol PRN Reason: PER PROTOCOL Stop: 01/07/25 10:31 Last Titration: 12/08/24 12:40 Dose: 0.13 mcg/kg/min, 21.339 mls/hr Insulin Human Lispro (Insulin Lispro (Admelog) 1 Unit/0.01 Ml Unit) 0 unit SC Q6HR PENDING SALE TO [facility]; Protocol Stop: 01/07/25 11:59 Last Admin: 12/08/24 11:11 Dose: Not Given Pantoprazole Sodium (Pantoprazole Inj 40 Mg Vial) 40 mg IVP QDAY ERIC Stop: 01/07/25 08:59 Last Admin: 12/08/24 08:52 Dose: 40 mg Pharmacy Consult (Vancomycin Pharmacy To Dose 1 Each Each) 1 each IV QDAY PRN PRN Reason: CONSULT Stop: 01/07/25 08:59 Potassium Chloride (Potassium Chloride 20 Meq Tabcr) 20 meq PO BIDWM ERIC Stop: 12/15/24 17:29 Sennosides (Senna Tablet) 1 tab PO QDAY PRN; Protocol PRN Reason: constipation Stop: 01/07/25 06:24 Discontinued Medications Dextrose (Dextrose 50%-Water Inj 50 Ml Syringe) 50 ml IV X1 ONE Stop: 12/08/24 00:33 Last Admin: 12/08/24 00:37 Dose: 50 ml Fludrocortisone Acetate (Fludrocortisone Acetate 0.1 Mg Tablet) 0.1 mg PO X1 ONE Stop: 12/08/24 06:46 Last Admin: 12/08/24 09:33 Dose: 0.1 mg Acetaminophen (Ofirmev Inj) 1,000 mg in 100 mls @ 250 mls/hr IV Q6HR ONE Stop: 12/08/24 04:02 Last Infusion: 12/08/24 04:49 Dose: Infused Piperacillin Sod/Tazobactam (Sod 3.375 gm/ Sodium Chloride) 100 mls @ 200 mls/hr IV X1 ONE Stop: 12/08/24 04:29 Last Infusion: 12/08/24 04:49 Dose: Infused Lactated Ringer's (Lactated Ringers) 500 mls @ 999 mls/hr IV .Q31M ONE Stop: 12/08/24 05:57 Last Admin: 12/08/24 06:10 Dose: Not Given Lactated Ringer's (Lactated Ringers) 1,000 mls @ 999 mls/hr IV .Q1H1M ONE Stop: 12/08/24 07:12 Last Infusion: 12/08/24 08:45 Dose: Infused Sodium Chloride (Ns) 500 mls @ 999 mls/hr IV .Q31M ONE Stop: 12/08/24 06:47 Last Infusion: 12/08/24 06:58 Dose: Infused Vancomycin/Sodium Chloride (Vancomycin/Ns 1 Gm Ivpb) 200 mls @ 120 mls/hr IV X1 ONE Stop: 12/08/24 08:24 Last Infusion: 12/08/24 09:16 Dose: Infused Lactated Ringer's (Lactated Ringers) 500 mls @ 999 mls/hr IV .Q31M ONE Stop: 12/08/24 07:20 Last Infusion: 12/08/24 07:39 Dose: Infused Norepinephrine/Dextrose (Levophed In D5w 8mg/250ml) 8 mg in 250 mls @ 8.207 mls/hr IV .Q24H PRN; Protocol PRN Reason: PER PROTOCOL Stop: 01/07/25 10:21 Norepinephrine/Dextrose (Levophed In D5w 8mg/250ml) 8 mg in 250 mls @ 8.207 mls/hr IV .Q24H PRN; Protocol PRN Reason: PER PROTOCOL Stop: 01/07/25 10:22 Potassium Chloride (Kcl Ivpb) 10 meq in 100 mls @ 100 mls/hr IV Q1H PENDING SALE TO [facility] Stop: 12/08/24 12:31 Last Admin: 12/08/24 13:02 Dose: Not Given Lactated Ringer's (Lactated Ringers) 500 mls @ 999 mls/hr IV .Q31M ONE Stop: 12/08/24 13:35 Last Admin: 12/08/24 13:09 Dose: Not Given Lactated Ringer's (Lactated Ringers) 500 mls @ 999 mls/hr IV .Q31M ONE Stop: 12/08/24 13:45 Last Admin: 12/08/24 13:10 Dose: 999 mls/hr Midodrine (Midodrine 5 Mg Tablet) 10 mg PO X1 ONE Stop: 12/08/24 05:35 Last Admin: 12/08/24 05:41 Dose: 10 mg Midodrine (Midodrine 5 Mg Tablet) 10 mg PO TID PENDING SALE TO [facility] Stop: 01/07/25 13:59 Ondansetron HCl (Ondansetron Inj 2 Mg/Ml Inj 2 Ml) 4 mg IV X1 ONE; Protocol Stop: 12/07/24 23:59 Last Admin: 12/08/24 00:03 Dose: 4 mg Potassium Chloride (Potassium Chloride 10% 20 Meq/15 Ml Udc) 40 meq PO X1 ONE Stop: 12/08/24 06:40 Last Admin: 12/08/24 09:33 Dose: 40 meq Sodium Chloride (Sodium Chloride Rt 10% 15 Ml Nebu) 5 ml INH X1 ONE Stop: 12/08/24 06:31 Assessment & Plan Plan Patient is a 64-year-old male with past medical history significant for end-stage renal disease Sunday following Dr. Chadwick, CRISTIANO on CPAP, hypertension, type 2 diabetes, gastric bypass, bilateral basal ganglia infarcts presented to the ED with hypoglycemia admitted for further management. ICU was further consulted for further management of patient's distributive shock presentation. NEURO #Acute encephalopathy?resolved Patient initially was altered, however on examination today, patient was A&O x 3. CARDIO #Distributive shock Most likely in the setting of sepsis due to acute infection of community-acquired pneumonia versus aspiration pneumonia Less likely to be cardiogenic shock as cardiac index is well above 2.2 and good contractility, less likely to be obstructive shock as no right ventricular dilatation seen Patient also presented with low-grade fever of 100.4 -Will follow-up with bedside echo and [place]etah to further assess underlying cause of shock -Currently on Levophed drip -On IV Zosyn and vancomycin -Echocardiogram ordered #Hypertension Patient is currently hypotensive requiring Levophed drip Patient takes home lisinopril 40 mg daily, metolazone 2.5 mg daily, metoprolol succinate 100 mg twice daily, spironolactone 50 mg daily -Will hold home meds for now PULM #Pneumonia Differential diagnosis: Aspiration pneumonia versus community-acquired pneumonia Per EMS, patient was altered after choking on his emesis. -Will follow-up with flu, RSV, cocci results -Chest CT with contrast to further assess #CRISTIANO Patient uses CPAP at night -Will continue with CPAP at night GI/FEN #Intractable nausea vomiting #Left abdominal pain #Gastric bypass Severe tenderness on palpation to left upper quadrant, mild tenderness to palpation to left lower quadrant and suprapubic tenderness. Patient noted to have intractable nausea vomiting for the last 2 months. Patient does have a history of gastric bypass in 2022. CT abdomen pelvis did show bilateral cystitis otherwise nothing suggesting acute findings -Will continue to monitor, and assess further if symptoms continue to worsen #Distended gallbladder #Hepatomegaly Bilirubin and LFTs stable. -Patient takes home ursodiol, will restart when patient is able to tolerate p.o. meds -Continue to monitor daily labs RENAL #Lactic acidosis Patient came in with a lactic acid of 7.9, and since then has been downtrending, but last 2 draws have been uptrending -Will continue to trend lactic acid every 6 -Will give 1 more liter LR #End-stage renal disease on hemodialysis #Right nephrectomy Patient follows Dr. Chadwick outpatient, Sunday for dialysis sessions. -Consulted in-house nephrology, Dr. Pineda, recommended to continue with hemodialysis sessions as scheduled hospital starting tomorrow #Electrolyte imbalance #Hypokalemia #Hypomagnesemia -Replete electrolytes as necessary HEME/ONC #Normocytic anemia Most likely in the setting of end-stage renal disease ENDO #Hypoglycemia?resolved Patient presented with a blood sugar of 28 in the ED, and given amp of D50 as well as D10 drip #Type 2 diabetes on chronic insulin therapy Patient takes NovoLog 5 units 3 times daily before meals as well as long-acting insulin, varies depending on patient's blood sugar level. Patient did take 20 units of Lantus last night. -Follow-up A1c -Insulin sliding scale AC -Hypoglycemia protocol in place ID #Pneumonia in the setting of sepsis -Continue with IV antibiotics -Follow-up cultures -MRSA swab -See above for more details Health Maintenance: DVT prophylaxis: Heparin SQ Q8 Diet: Diabetic diet after passing swallow eval Jeffery: No Lines: PIV Supplemental O2: None CODE STATUS: Full code Disposition: Patient admitted to ICU for further management of distributive shock and lactic acidosis. Patient's plan and care discussed with my attending, Dr. Dk Galdamez MD PGY-2
[2024-12-08] MEDS: HEPARIN SOD INJ 5000 UNIT/ML VIAL SC ×2 (14:48→21:12)
--- NOTE | 2024-12-08 14:57 | PD.RESCONSUL ---
HPI Data of Consult Consult date: 12/08/24 Requesting Physician: Rae Conte MD Admitting Provider: Rae Conte MD Attending Provider: Rae Conte MD Primary Care Provider: Sunil Chadwick MD Consult Narrative Reason for consult: ESRD On HD History of present illness: Mr. Gonzalez is a 64-year-old male with significant past medical history of ESRD on HD TTS with Dr. Chadwick, CRISTIANO on CPAP nightly, hypertension, type 2 diabetes mellitus and is status post gastric bypass in 2022 presented to ED with chief complaint of altered mental status and severe hypoglycemia. EMS found his blood sugar to be 28 mg/dL, and received 50 cc D10. Patient was hypoxic, and was started on 15 L nonrebreather mask. He has been feeling sick for past few days. He denies any headache, lightheadedness, chest pain, abdominal pain, any urinary symptoms or leg swelling. In the ED he was found 3/4 SIRS criteria positive with tachycardia, tachypnea, leukocytosis of 14.5. Labs were significant for hemoglobin 13.1, ABG revealed pH 7.45, pCO2 33, pO2 69. Chemistry panel revealed potassium 3.0, chloride 92, bicarb 32, creatinine 4.5 and GFR 14 significant for ESRD. His blood sugar was 42. CT abdomen pelvis shows multiple bilateral lung nodular groundglass opacities and consolidations likely pneumonia, splenic and hepatic calcified granulomas right kidney surgically absent midpole 3.0 cm cyst in left kidney large prostate with calcification. Chest x-ray significant for bilateral pneumonia. ED Treatment:Patient was given Zofran 4 mg x 1, dextrose 50 cc x 1, Zosyn x 1, Tylenol 1000 mg x 1 in ED. Patient was started on BiPAP. PMH: As mentioned above Family history: Positive for cancers Surgical history: Tonsillectomy and right nephrectomy Social history: Never smoker, denies any alcohol or illicit drug use cc:: cc: Rae Conte MD Review of Systems Review of Systems Systems Reviewed: All systems reviewed, normal except as documented Past Medical History Past Medical History NEUROLOGIC: Positive Transient Ischemic Attacks (TIA) (2019); Negative Neurological Disorders or Seizures CARDIAC: Positive Hypercholesterolemia and Hypertension; Negative Cardiac Disorders or Congestive Heart Failure RESPIRATORY: Positive Asthma, Pneumonia and Sleep Apnea (CPAP at home); Negative Chronic Obstructive Pulmonary Disease (COPD) GASTROINTESTINAL: Positive Gastrointestinal Disorders and Gastroesophageal Reflux Disease GENITOURINARY: Positive Genitourinary Disorders, Renal Disease, Kidney Stones and Dialysis (T, TH, SAT) MUSCULOSKELETAL: Positive Musculoskeletal Disorders and Arthritis ENT: Positive Cataracts (bilateral) ENDOCRINE: Positive Endocrine Disorders, Diabetes Mellitus Type 2 and Hypoglycemia; Negative Diabetes Mellitus Type 1 HEMATOLOGIC: Negative Blood Disorders or Sickle Cell Disease OTHER HISTORY: Positive Chicken Pox, Measles and Mumps; Negative Autoimmune Disease, Blood Transfusions, Blood Transfusion Reaction, Anesthesia Reactions or Cancer Family History FAMILY HISTORY: Negative Family Cancer Surgical History SURGICAL: Positive Tonsillectomy and Nephrectomy (right) Social History SMOKING STATUS: Never smoker SECOND HAND EXPOSURE: No Exam Vital Signs Temp Pulse Resp BP Pulse Ox O2 Del Method O2 Flow Rate 98.7 F 79 32 H 101/65 94 L Nasal Cannula 5 12/08/24 12:00 12/08/24 13:40 12/08/24 13:40 12/08/24 13:40 12/08/24 13:40 12/08/24 13:20 12/08/24 13:20 FiO2 100 12/08/24 09:03 Narrative Exam General: No acute distress, Alert and Oriented x 3, saturating 94% on 5 L NC HEENT: Moist mucous membranes, oropharynx clear Neck: Supple, No masses, No JVD CVS: S1S2 Regular rate and rhythm, No murmurs, rubs or gallops Lungs: Clear to auscultation with no accessory use, mild wheeze and rhonchi, no crackles Abd: Soft, NT/ND, +BS, no organomegaly Ext: No edema, warm and well perfused Skin: No rash Psych: Appropriate mood and affect Results Labs 12/10/24 04:35 12/09/24 02:23 Labs: Short CBC 12/07/24 12/08/24 Range/Units 00:20 07:04 WBC 14.5 H 3.6 L D (3.8-10.6) Thou/mm3 Hgb 13.1 L 13.4 L (13.5-16.0) g/dL Hct 37.7 L 37.6 L (41.0-53.0) % Plt Count 231 158 D (140-440) Thou/mm3 BMP 12/07/24 12/08/24 00:20 07:04 Sodium 136 134 L Potassium 3.0 L 2.6 L* Chloride 92 L 95 L Carbon Dioxide 32.0 H 25.6 BUN 24 H 25 H Creatinine 4.5 H* 4.5 H* Glucose 42 L* 220 H D Calcium 10.0 9.4 Cardiac Enzymes 12/07/24 Range/Units 00:20 Troponin I < 0.020 (0.0-0.045) ng/mL Liver Function 12/07/24 12/08/24 Range/Units 00:20 07:04 Total Bilirubin 0.2 L 0.5 (0.3-1.2) mg/dL AST 11 11 (0-34) U/L ALT < 7 L < 7 L (10-49) U/L Alkaline Phosphatase 131 H 96 D (46-116) U/L Albumin 3.9 3.4 D (3.4-4.8) gm/dL ABG Interpretation ABG results: 12/08/24 04:16 ABG pH 7.45 ABG pCO2 33 ABG pO2 69 L ABG HCO3 23 ABG O2 Saturation 94 ABG Base Excess 0 Quality Measures Quality Measures none Medications Home Medications and Allergies Home Medications ?Medication ?Instructions ?Recorded ?Confirmed ?Type cholecalciferol (vitamin D3) 50 2,000 unit PO QDAY #0 caps 12/19/15 12/09/24 History mcg (2,000 unit) capsule (Vitamin D3) vitamin B complex 1 tab PO QDAY 04/01/19 12/09/24 History nortriptyline 25 mg capsule 25 mg PO HS 11/12/20 12/09/24 History spironolactone 50 mg tablet 50 mg PO QDAY 04/27/21 12/09/24 History Held on 12/09/24. Instructions: Doctor's Order hydroxyzine HCl 10 mg tablet 10 mg PO QPM 03/07/24 12/09/24 History insulin aspart U-100 100 unit/mL 5 unit subcut TID 03/07/24 12/09/24 History (3 mL) subcutaneous pen (Novolog FlexPen U-100 Insulin aspart) isosorbide mononitrate 30 mg 30 mg PO QDAY 03/07/24 12/09/24 History tablet,extended release 24 hr lisinopril 40 mg tablet 40 mg PO BID 03/07/24 12/09/24 History metolazone 2.5 mg tablet 2.5 mg PO QDAY 03/07/24 12/09/24 History metoprolol succinate 100 mg 100 mg PO BID 03/07/24 12/09/24 History tablet,extended release 24 hr Held on 12/09/24. Instructions: Doctor's Order midodrine 10 mg tablet 10 mg PO TID 03/07/24 12/09/24 History ursodiol 300 mg capsule 300 mg PO BID 03/07/24 12/09/24 History Held on 12/09/24. Instructions: Doctor's Order sevelamer carbonate 800 mg tablet 800 mg PO .with meals 12/09/24 12/09/24 History Allergies Allergy/AdvReac Type Severity Reaction Status Date / Time house dust Allergy Verified 12/08/24 03:54 Visit Medications Acetaminophen (Acetaminophen 325 Mg Tablet) 650 mg PO Q6H PRN PRN Reason: Fever >101.5 Stop: 01/07/25 06:24 Albuterol/Ipratropium (Albuterol/Ipratropium (Duoneb) Rt Susy 3 Ml Nebu) 3 ml INH Q4HRRT PRN PRN Reason: SOB, Wheezing Stop: 01/07/25 06:59 Last Admin: 12/08/24 06:49 Dose: 3 ml Dextrose (Dextrose 50%-Water Inj 50 Ml Syringe) 25 ml IV Q15MIN PRN PRN Reason: BG 50-70 responsive npo pt Stop: 01/07/25 06:39 Dextrose (Dextrose 50%-Water Inj 50 Ml Syringe) 50 ml IV Q15MIN PRN PRN Reason: BG <50 OR BG <70 & pt unresponsive Stop: 01/07/25 06:39 Fludrocortisone Acetate (Fludrocortisone Acetate 0.1 Mg Tablet) 0.1 mg PO TID [facility] [place] Stop: 01/07/25 13:59 Last Admin: 12/08/24 14:46 Dose: 0.1 mg Glucagon (Glucagon Inj 1 Mg Vial) 1 mg IM Q15MIN PRN PRN Reason: BG <70, and no IV access Heparin Sodium (Porcine) (Heparin Sod Inj 5000 Unit/Ml Vial) 5,000 unit SC Q8HR [facility] [place] Stop: 12/22/24 13:59 Last Admin: 12/08/24 14:48 Dose: 5,000 unit Albumin Human (Albuminar-25 Ivpb) 25 gm in 100 mls @ 100 mls/hr IV QDAY [facility] [place] Stop: 12/11/24 05:56 Last Infusion: 12/08/24 07:09 Dose: Infused Piperacillin/Tazobactam/Dextrose (Zosyn) 3.375 gm in 50 mls @ 12.5 mls/hr IV Q12HR [facility] [place] Stop: 12/15/24 20:59 Norepinephrine/Dextrose (Levophed In D5w 8mg/250ml) 8 mg in 250 mls @ 8.207 mls/hr IV .Q24H PRN; Protocol PRN Reason: PER PROTOCOL Stop: 01/07/25 10:31 Last Titration: 12/08/24 14:47 Dose: 0.11 mcg/kg/min, 18.056 mls/hr Insulin Human Lispro (Insulin Lispro (Admelog) 1 Unit/0.01 Ml Unit) 0 unit SC Q6HR [facility] [place]; Protocol Stop: 01/07/25 11:59 Last Admin: 12/08/24 11:11 Dose: Not Given Pantoprazole Sodium (Pantoprazole Inj 40 Mg Vial) 40 mg IVP QDAY [facility] [place] Stop: 01/07/25 08:59 Last Admin: 12/08/24 08:52 Dose: 40 mg Pharmacy Consult (Vancomycin Pharmacy To Dose 1 Each Each) 1 each IV QDAY PRN PRN Reason: CONSULT Stop: 01/07/25 08:59 Potassium Chloride (Potassium Chloride 20 Meq Tabcr) 20 meq PO X1 ONE Stop: 12/08/24 15:01 Sennosides (Senna Tablet) 1 tab PO QDAY PRN; Protocol PRN Reason: constipation Stop: 01/07/25 06:24 Discontinued Medications Dextrose (Dextrose 50%-Water Inj 50 Ml Syringe) 50 ml IV X1 ONE Stop: 12/08/24 00:33 Last Admin: 12/08/24 00:37 Dose: 50 ml Fludrocortisone Acetate (Fludrocortisone Acetate 0.1 Mg Tablet) 0.1 mg PO X1 ONE Stop: 12/08/24 06:46 Last Admin: 12/08/24 09:33 Dose: 0.1 mg Acetaminophen (Ofirmev Inj) 1,000 mg in 100 mls @ 250 mls/hr IV Q6HR ONE Stop: 12/08/24 04:02 Last Infusion: 12/08/24 04:49 Dose: Infused Piperacillin Sod/Tazobactam (Sod 3.375 gm/ Sodium Chloride) 100 mls @ 200 mls/hr IV X1 ONE Stop: 12/08/24 04:29 Last Infusion: 12/08/24 04:49 Dose: Infused Lactated Ringer's (Lactated Ringers) 500 mls @ 999 mls/hr IV .Q31M ONE Stop: 12/08/24 05:57 Last Admin: 12/08/24 06:10 Dose: Not Given Lactated Ringer's (Lactated Ringers) 1,000 mls @ 999 mls/hr IV .Q1H1M ONE Stop: 12/08/24 07:12 Last Infusion: 12/08/24 08:45 Dose: Infused Sodium Chloride (Ns) 500 mls @ 999 mls/hr IV .Q31M ONE Stop: 12/08/24 06:47 Last Infusion: 12/08/24 06:58 Dose: Infused Vancomycin/Sodium Chloride (Vancomycin/Ns 1 Gm Ivpb) 200 mls @ 120 mls/hr IV X1 ONE Stop: 12/08/24 08:24 Last Infusion: 12/08/24 09:16 Dose: Infused Lactated Ringer's (Lactated Ringers) 500 mls @ 999 mls/hr IV .Q31M ONE Stop: 12/08/24 07:20 Last Infusion: 12/08/24 07:39 Dose: Infused Norepinephrine/Dextrose (Levophed In D5w 8mg/250ml) 8 mg in 250 mls @ 8.207 mls/hr IV .Q24H PRN; Protocol PRN Reason: PER PROTOCOL Stop: 01/07/25 10:21 Norepinephrine/Dextrose (Levophed In D5w 8mg/250ml) 8 mg in 250 mls @ 8.207 mls/hr IV .Q24H PRN; Protocol PRN Reason: PER PROTOCOL Stop: 01/07/25 10:22 Potassium Chloride (Kcl Ivpb) 10 meq in 100 mls @ 100 mls/hr IV Q1H ERIC Stop: 12/08/24 12:31 Last Admin: 12/08/24 13:02 Dose: Not Given Lactated Ringer's (Lactated Ringers) 500 mls @ 999 mls/hr IV .Q31M ONE Stop: 12/08/24 13:35 Last Admin: 12/08/24 13:09 Dose: Not Given Lactated Ringer's (Lactated Ringers) 500 mls @ 999 mls/hr IV .Q31M ONE Stop: 12/08/24 13:45 Last Admin: 12/08/24 13:10 Dose: 999 mls/hr Midodrine (Midodrine 5 Mg Tablet) 10 mg PO X1 ONE Stop: 12/08/24 05:35 Last Admin: 12/08/24 05:41 Dose: 10 mg Midodrine (Midodrine 5 Mg Tablet) 10 mg PO TID ERIC Stop: 01/07/25 13:59 Ondansetron HCl (Ondansetron Inj 2 Mg/Ml Inj 2 Ml) 4 mg IV X1 ONE; Protocol Stop: 12/07/24 23:59 Last Admin: 12/08/24 00:03 Dose: 4 mg Potassium Chloride (Potassium Chloride 10% 20 Meq/15 Ml Udc) 40 meq PO X1 ONE Stop: 12/08/24 06:40 Last Admin: 12/08/24 09:33 Dose: 40 meq Potassium Chloride (Potassium Chloride 20 Meq Tabcr) 20 meq PO BIDWM ERIC Stop: 12/15/24 17:29 Sodium Chloride (Sodium Chloride Rt 10% 15 Ml Nebu) 5 ml INH X1 ONE Stop: 12/08/24 06:31 Assessment & Plan Plan The patient is a 64-year-old male with significant past medical history of ESRD on HD TTS with Dr. Chadwick, CRISTIANO on CPAP nightly, hypertension, type 2 diabetes mellitus and is status post gastric bypass in 2022 presented to ED with chief complaint of altered mental status and severe hypoglycemia. EMS found his blood sugar to be 28 mg/dL, and received 50 cc D10. Patient was hypoxic, and was started on 15 L nonrebreather mask. He has been feeling sick for past few days. The patient was found to be on lactic acidosis secondary to septic shock secondary to community-acquired pneumonia. Nephrology consultation was done for further management of lactic acidosis, electrolyte imbalance and ESRD. #Lactic acidosis 2/2 #Septic shock 2/2 #Acute hypoxic respiratory failure 2/2 #Community-acquired pneumonia Complicated by ESRD with decreased renal clearance Met 3/4 SIRS criteria tachycardia, tachypnea, leukocytosis of 14.5, with lactic acid trending up to 7.9 in the setting of community-acquired pneumonia revealed on chest x-ray -Treat the underlying cause that is septic secondary to community-acquired pneumonia -Monitor lactic acid until delta is achieved -Currently pH is 7.45, not a candidate for emergency hemodialysis at this point #Hypokalemia Etiology currently unknown -Monitor and replete as needed #Hypoosmolar hypervolemic hyponatremia Likely in the setting of ESRD -Continue with regularly scheduled hemodialysis on TTS #ESRD, currently seems euvolemic Renal panel revealed chloride 92, bicarb 32, creatinine 4.5 and GFR 14 significant for ESRD -We will proceed with regularly scheduled hemodialysis on TTS #CRISTIANO #DM type II #Hypertension -Management deferred to primary ICU team Thank you for the opportunity to participate nephrology team in this patient care. The patient's management plan was discussed with my attending physician MD Sheldon Delgado MD, PGY2 Attending Provider Attestation/Addendum Patient seen and examined with resident physician Dr. Bazan. Note reviewed, agree with findings and recommendations. Patient currently seen in ICU. Admitted with hypoglycemia. His usual dialysis schedule Sunday, , Sunday no fluid overload noted. Admitting team not able to get hold of Dr. Chadwick (his hairspring vibrator) consulted as I am on-call. Spoke to Dr. Root-will monitor closely. Hold dialysis today. Dialysis scheduled for tomorrow. Thank you Dr. Root for allowing me to participate in the care of Mr. Gonzalez
[2024-12-08] MEDS: POTASSIUM CHLORIDE 20 mEq TABCR PO (14:59)
[2024-12-08 15:42] LABS: Cocci Serology, IgM Negative (Negative)
[2024-12-08 16:23] LABS: Alanine Aminotransferase < 7 U/L (10-49); Albumin, Serum 3.4 gm/dL (3.4-4.8); Albumin/Globulin Ratio 1.3 (1.2-2.2); Alkaline Phosphatase 93 U/L (46-116); Anion Gap 15 (7-16); Aspartate Amino Transferase 10 U/L (0-34); BUN/Creatinine Ratio 6 Ratio (12-20); Bilirubin,Total 0.5 mg/dL (0.3-1.2); Blood Urea Nitrogen 26 mg/dL (9-23); Calcium 9.2 mg/dL (8.3-10.6); Calcium (Corrected) 9.7 mg/dL (8.5-10.1); Carbon Dioxide 23.7 mMol/L (20.0-31.0); Chloride 94 mMol/L (98-107); Creatinine (Component) 4.6 mg/dL (0.6-1.3); Globulin 2.6 gm/dL (2.3-3.5); Glucose 251 mg/dL (74-106); Osmolality,Calculated 279 (275-295); Potassium 3.6 mMol/L (3.4-5.1); Sodium 133 mMol/L (136-145); eGFR 14 See Note
[2024-12-08 16:41] LABS: Lactate (Lactic Acid) 5.5 mMol/L (0.4-2.0)
[2024-12-08 16:58] LABS: Respiratory Syncytial Virus Ag Negative (Negative)
[2024-12-08 16:59] LABS: Influenza A Ag Negative; Influenza B Ag Negative
[2024-12-08] MEDS: INSULIN LISPRO (AdmeLOG) 1 UNIT/0.01 ML UNIT SC (17:14)
[2024-12-08 19:34] LABS: Reflex Lactate? Y
[2024-12-08 20:08] LABS: Lactic Acid, 3 HR 7.5 mMol/L (0.4-2.0)
--- NOTE | 2024-12-08 20:56 | XR_ITS ---
Examination: Duplex scan of the upper extremity, unilateral right Date and time of exam: December 08, 2024 0911 hours INDICATIONS: CT examination December 08, 2024 suspicious for clot in the right internal jugular vein Technique: Duplex scan of the extremity veins using B-mode/grayscale imaging and Doppler spectral analysis and color flow Attention is directed to internal echogenicity, compression and augmentation involving these veins, color flow assessment, spectral analysis Findings: Positive for nonocclusive thrombus in the right internal jugular vein, right subclavian, axillary, cephalic, brachial veins IMPRESSION: Extensive nonocclusive thrombus as above
[2024-12-08] MEDS: PIPER/TAZO 3.375 GM 3.375 GM/50 ML BAG IV (21:12)
[2024-12-08 23:12] LABS: Lactate (Lactic Acid) 3.8 mMol/L (0.4-2.0)
[2024-12-09] VITALS (91 sets, daily range): BP systolic 83–167; BP diastolic 49–91; PULSE 89–121; RESP 1–37; TEMP 36.6–37.4; O2SAT 86–96
[2024-12-09 02:09] LABS: Reflex Lactate? Y
[2024-12-09 02:54] LABS: Lactic Acid, 3 HR 2.1 mMol/L (0.4-2.0)
[2024-12-09 02:55] LABS: Basophils # (Auto) 0.1 Thou/mm3 (0.0-0.2); Basophils % (Auto) 1 % (0-2.5); Eosinophils # (Auto) 0.1 Thou/mm3 (0.0-0.5); Eosinophils % (Auto) 0 % (0-10); Hematocrit 34.1 % (41.0-53.0); Hemoglobin 12.1 g/dL (13.5-16.0); Immature Granulocytes % (Auto) 1 % (0-0); Immature Granulocytes Auto 0.16 Thou/mm3 (0.00-0.00); Lymphocytes % (Auto) 16 % (10-50); Mean Corpuscular HGB Conc 35.5 g/dl (31.0-37.0); Mean Corpuscular Hemoglobin 33.6 pg (25.0-35.0); Mean Corpuscular Volume 95 fL (80-100); Monocytes # (Auto) 0.8 Thou/mm3 (0.0-0.8); Monocytes % (Auto) 4 % (0-12); Neutrophils # (Auto) 14.1 Thou/mm3 (1.8-7.7); Neutrophils % (Auto) 78 % (37-80); Nucleated Red Blood Cell % 0 /100 WBC (0); Platelet Count 181 Thou/mm3 (140-440); White Blood Count 18.1 Thou/mm3 (3.8-10.6)
[2024-12-09 03:12] LABS: INR 1.1 (0.9-1.3); Partial Thromboplastin Time 37.6 Seconds (22.0-36.0); Prothrombin Time 12.2 Seconds (9.0-12.2)
[2024-12-09 03:15] LABS: Glucose Estimated Average 117 mg/dL (80-131); Hemoglobin A1C 5.7 % Hgb (4.8-6.0)
[2024-12-09 03:25] LABS: Alanine Aminotransferase < 7 U/L (10-49); Albumin, Serum 3.3 gm/dL (3.4-4.8); Albumin/Globulin Ratio 1.3 (1.2-2.2); Alkaline Phosphatase 101 U/L (46-116); Anion Gap 11 (7-16); Aspartate Amino Transferase 11 U/L (0-34); BUN/Creatinine Ratio 7 Ratio (12-20); Bilirubin,Total 0.4 mg/dL (0.3-1.2); Blood Urea Nitrogen 32 mg/dL (9-23); Calcium 9.5 mg/dL (8.3-10.6); Calcium (Corrected) 10.1 mg/dL (8.5-10.1); Carbon Dioxide 27.3 mMol/L (20.0-31.0); Chloride 97 mMol/L (98-107); Creatinine (Component) 4.6 mg/dL (0.6-1.3); Globulin 2.5 gm/dL (2.3-3.5); Glucose 152 mg/dL (74-106); Magnesium 1.5 mg/dL (1.6-2.6); Osmolality,Calculated 280 (275-295); Potassium 3.9 mMol/L (3.4-5.1); Sodium 135 mMol/L (136-145); Total Protein 5.8 gm/dL (5.7-8.2); eGFR 14 See Note
[2024-12-09 03:38] LABS: Cardiac Risk Estimate 1.9 RATIO (4.0-6.7); Cholesterol 93 mg/dL (132-200); HDL Cholesterol 49 mg/dL (40-60); LDL Cholesterol,Calculated 10 mg/dL (0-130); Triglycerides 171 mg/dL (30-150); Vancomycin,Random 11.5 mcg/mL
[2024-12-09] MEDS: Magnesium Sulfate 4 GM Ivpb 4 GM/50 ML BAG IV (04:59)
[2024-12-09] MEDS: HEPARIN SOD INJ 5000 UNIT/ML VIAL SC ×3 (05:08→21:39)
[2024-12-09] MEDS: FLUDROCORTISONE ACETATE 0.1 MG TABLET PO ×3 (05:11→21:39)
[2024-12-09 08:00] LABS: Lactate (Lactic Acid) 1.6 mMol/L (0.4-2.0)
[2024-12-09] MEDS: ALBUMIN HUMAN 25% IVPB 25 GM/100 ML BTL IV (09:50)
[2024-12-09] MEDS: PIPER/TAZO 3.375 GM 3.375 GM/50 ML BAG IV ×2 (09:50→21:39)
--- NOTE | 2024-12-09 10:32 | PC.NURSE ---
Per MD Pineda, do not use Left arm for any Lab work or Iv's. Will remove the IV present upon shift change
[2024-12-09] MEDS: ALBUTEROL/IPRATROPIUM (Duoneb) RT SOL 3 ML NEBU INH ×4 (10:45→23:22)
[2024-12-09] MEDS: ACETYLCYSTEINE RT SOL 10% 4 ML NEBU 3 ML INH ×4 (10:45→23:22)
--- NOTE | 2024-12-09 13:37 | PD.RESPRO ---
Documentation for date of: 12/09/24 Subjective Subjective Interval history: The patient is a 64-year-old male with significant past medical history of ESRD on HD TTS with Dr. Chadwick, CRISTIANO on CPAP nightly, hypertension, type 2 diabetes mellitus and is status post gastric bypass in 2022 presented to ED with chief complaint of altered mental status and severe hypoglycemia. EMS found his blood sugar to be 28 mg/dL, and received 50 cc D10. Patient was hypoxic, and was started on 15 L nonrebreather mask. He has been feeling sick for past few days. He denies any headache, lightheadedness, chest pain, abdominal pain, any urinary symptoms or leg swelling. In the ED he was found 3/4 SIRS criteria positive with tachycardia, tachypnea, leukocytosis of 14.5. Labs were significant for hemoglobin 13.1, ABG revealed pH 7.45, pCO2 33, pO2 69. Chemistry panel revealed potassium 3.0, chloride 92, bicarb 32, creatinine 4.5 and GFR 14 significant for ESRD. His blood sugar was 42. CT abdomen pelvis shows multiple bilateral lung nodular groundglass opacities and consolidations likely pneumonia, splenic and hepatic calcified granulomas right kidney surgically absent midpole 3.0 cm cyst in left kidney large prostate with calcification. Chest x-ray significant for bilateral pneumonia. ED Treatment:Patient was given Zofran 4 mg x 1, dextrose 50 cc x 1, Zosyn x 1, Tylenol 1000 mg x 1 in ED. Patient was started on BiPAP. PMH: As mentioned above Family history: Positive for cancers Surgical history: Tonsillectomy and right nephrectomy Social history: Never smoker, denies any alcohol or illicit drug use 12/09/2024: The patient was interviewed and examined at the ICU bed this morning. He reported doing well. Vitals were significant for mild tachicardia, mild tachypnea and saturating 91% on 5L NC. White count trended up to 18.1. Renal panel sighnificant for ESRD, with normal electrolytes. The patient will get regularly scheduled HD today, as per TTS schedule. Noted right upper extremity edema-venous Doppler showed clot around the catheter. Okay to proceed with dialysis. Anticoagulation per ICU team. Exam Vital Signs Temp Pulse Resp BP Pulse Ox O2 Del Method O2 Flow Rate 97.9 F 109 H 24 H 154/62 H 91 L Nasal Cannula 5 12/09/24 12:30 12/09/24 13:30 12/09/24 13:00 12/09/24 13:30 12/09/24 13:00 12/09/24 07:00 12/09/24 12:30 FiO2 112 12/09/24 09:00 Narrative Exam General: No acute distress, Alert and Oriented x 3, saturating 94% on 5 L NC HEENT: Moist mucous membranes, oropharynx clear Neck: Supple, No masses, No JVD CVS: S1S2 Regular rate and rhythm, No murmurs, rubs or gallops Lungs: Clear to auscultation with no accessory use, mild wheeze and rhonchi, no crackles Abd: Soft, NT/ND, +BS, no organomegaly Ext: No edema, warm and well perfused Skin: No rash Psych: Appropriate mood and affect Objective Labs 12/10/24 04:35 12/09/24 02:23 Labs: Laboratory Results - last 24 hr 12/08/24 12/08/24 12/08/24 14:14 15:30 15:46 WBC RBC Hgb Hct MCV MCH MCHC RDW Std Deviation Plt Count Neut % (Auto) Lymph % (Auto) [place] % (Auto) Eos % (Auto) Baso % (Auto) Neut # (Auto) Lymph # (Auto) [place] # (Auto) Eos # (Auto) Baso # (Auto) Immature Gran # (Auto) Absolute Nucleated RBC Immature Gran % Nucleated RBC % PT INR APTT Sodium 133 L Potassium 3.6 D Chloride 94 L Carbon Dioxide 23.7 Anion Gap 15 BUN 26 H Creatinine 4.6 H* Estim Creat Clear Calc 18.0 L eGFR 14 L* BUN/Creatinine Ratio 6 L Glucose [address] Glu mg/dL Hemoglobin A1c Calculated Osmolality 279 Lactic Acid Calcium 9.2 Corrected Calcium 9.7 Magnesium Total Bilirubin 0.5 AST 10 ALT < 7 L Alkaline Phosphatase 93 Total Protein 6.0 Albumin 3.4 Globulin 2.6 Albumin/Globulin Ratio 1.3 Triglycerides Cholesterol LDL Cholesterol, Calc HDL Cholesterol Cholesterol/HDL Ratio TSH Random Vancomycin Coccidioides IgM Ab Negative Influenza A (Rapid) Negative Influenza B (Rapid) Negative RSV Rapid Negative 12/08/24 12/08/24 12/08/24 16:28 19:54 22:58 WBC RBC Hgb Hct MCV MCH MCHC RDW Std Deviation Plt Count Neut % (Auto) Lymph % (Auto) [place] % (Auto) Eos % (Auto) Baso % (Auto) Neut # (Auto) Lymph # (Auto) [place] # (Auto) Eos # (Auto) Baso # (Auto) Immature Gran # (Auto) Absolute Nucleated RBC Immature Gran % Nucleated RBC % PT INR APTT Sodium Potassium Chloride Carbon Dioxide Anion Gap BUN Creatinine Estim Creat Clear Calc eGFR BUN/Creatinine Ratio Glucose Estimated Ave Glu mg/dL Hemoglobin A1c Calculated Osmolality Lactic Acid 5.5 H* 7.5 H* 3.8 H Calcium Corrected Calcium Magnesium Total Bilirubin AST ALT Alkaline Phosphatase Total Protein Albumin Globulin Albumin/Globulin Ratio Triglycerides Cholesterol LDL Cholesterol, Calc HDL Cholesterol Cholesterol/HDL Ratio TSH Random Vancomycin Coccidioides IgM Ab Influenza A (Rapid) Influenza B (Rapid) RSV Rapid 12/09/24 12/09/24 02:23 07:53 WBC 18.1 H D RBC 3.60 L Hgb 12.1 L Hct 34.1 L MCV 95 MCH 33.6 MCHC 35.5 RDW Std Deviation 45.0 H Plt Count 181 Neut % (Auto) 78 Lymph % (Auto) 16 [place] % (Auto) 4 Eos % (Auto) 0 Baso % (Auto) 1 Neut # (Auto) 14.1 H Lymph # (Auto) 3.0 [place] # (Auto) 0.8 Eos # (Auto) 0.1 Baso # (Auto) 0.1 Immature Gran # (Auto) 0.16 H Absolute Nucleated RBC 0.00 Immature Gran % 1 H Nucleated RBC % 0 PT 12.2 INR 1.1 APTT 37.6 H D Sodium 135 L Potassium 3.9 Chloride 97 L Carbon Dioxide 27.3 Anion Gap 11 BUN 32 H Creatinine 4.6 H* Estim Creat Clear Calc 18.0 L eGFR 14 L* BUN/Creatinine Ratio 7 L Glucose [address] Glu mg/dL 117 Hemoglobin A1c 5.7 Calculated Osmolality 280 Lactic Acid 2.1 H 1.6 Calcium 9.5 Corrected Calcium 10.1 Magnesium 1.5 L Total Bilirubin 0.4 AST 11 ALT < 7 L Alkaline Phosphatase 101 Total Protein 5.8 Albumin 3.3 L Globulin 2.5 Albumin/Globulin Ratio 1.3 Triglycerides 171 H Cholesterol 93 L LDL Cholesterol, Calc 10 HDL Cholesterol 49 Cholesterol/HDL Ratio 1.9 L TSH 1.20 Random Vancomycin 11.5 Coccidioides IgM Ab Influenza A (Rapid) Influenza B (Rapid) RSV Rapid ABG Interpretation ABG results: 12/08/24 04:16 ABG pH 7.45 ABG pCO2 33 ABG pO2 69 L ABG HCO3 23 ABG O2 Saturation 94 ABG Base Excess 0 Quality Measures Quality Measures none Assessment & Plan Assessment Current Active Medications: Generic Name Dose Route Start Last Admin Trade Name Freq PRN Reason Stop Dose Admin Acetaminophen 650 mg 12/08/24 06:25 Acetaminophen 325 Mg Tablet PO 01/07/25 06:24 Q6H PRN Fever >101.5 Acetylcysteine 3 ml 12/09/24 10:00 12/09/24 10:45 Acetylcysteine Rt Susy 10% 4 Ml Nebu INH 01/08/25 09:59 3 ml Q4HRRT ERIC Administration Albuterol/Ipratropium 3 ml 12/08/24 06:32 12/08/24 06:49 Albuterol/Ipratropium (Duoneb) Rt Susy 3 Ml Nebu INH 01/07/25 06:59 3 ml Q4HRRT PRN Administration SOB, Wheezing Albuterol/Ipratropium 3 ml 12/09/24 09:30 12/09/24 10:45 Albuterol/Ipratropium (Duoneb) Rt Susy 3 Ml Nebu INH 01/08/25 09:29 3 ml Q4HRRT ERIC Administration Dextrose 25 ml 12/08/24 06:40 Dextrose 50%-Water Inj 50 Ml Syringe IV 01/07/25 06:39 Q15MIN PRN BG 50-70 responsive npo pt Dextrose 50 ml 12/08/24 06:40 Dextrose 50%-Water Inj 50 Ml Syringe IV 01/07/25 06:39 Q15MIN PRN BG <50 OR BG <70 & pt unresponsive Fludrocortisone Acetate 0.1 mg 12/08/24 14:00 12/09/24 05:11 Fludrocortisone Acetate 0.1 Mg Tablet PO 01/07/25 13:59 0.1 mg TID ERIC Administration Glucagon 1 mg 12/08/24 06:40 Glucagon Inj 1 Mg Vial IM Q15MIN PRN BG <70, and no IV access Heparin Sodium (Porcine) 5,000 unit 12/08/24 14:00 12/09/24 05:08 Heparin Sod Inj 5000 Unit/Ml Vial SC 12/22/24 13:59 5,000 unit Q8HR ERIC Administration Heparin Sodium (Porcine) 3,500 unit 12/09/24 12:53 Heparin Sod Inj 1000 Unit/Ml Vial 10 Ml INDWELLCAT 12/23/24 12:52 X1 PRN DIALYSIS Piperacillin/Tazobactam/Dextrose 3.375 gm in 50 mls @ 12.5 mls/hr 12/08/24 21:00 12/09/24 09:50 Zosyn IV 12/15/24 20:59 12.5 mls/hr Q12HR ERIC Administration Norepinephrine/Dextrose 8 mg in 250 mls @ 8.207 mls/hr 12/08/24 10:32 12/09/24 07:30 Levophed In D5w 8mg/250ml IV 01/07/25 10:31 0 mcg/kg/min .Q24H PRN 0 mls/hr PER PROTOCOL Titration Protocol 0.05 MCG/KG/MIN Albumin Human 12.5 gm in 50 mls @ 100 mls/hr 12/09/24 12:53 Albuminar-25 Ivpb IV 01/08/25 12:52 PRN PRN DIALYSIS Insulin Human Lispro 0 unit 12/09/24 07:30 12/09/24 13:00 Insulin Lispro (Admelog) 1 Unit/0.01 Ml Unit SC 01/08/25 07:29 Not Given AC [facility] Protocol Midodrine 10 mg 12/09/24 14:00 Midodrine 5 Mg Tablet PO 01/08/25 13:59 TID ERIC Sennosides 1 tab 12/08/24 06:25 Senna Tablet PO 01/07/25 06:24 QDAY PRN constipation Protocol Plan The patient is a 64-year-old male with significant past medical history of ESRD on HD TTS with Dr. Chadwick, CRISTIANO on CPAP nightly, hypertension, type 2 diabetes mellitus and is status post gastric bypass in 2022 presented to ED with chief complaint of altered mental status and severe hypoglycemia. EMS found his blood sugar to be 28 mg/dL, and received 50 cc D10. Patient was hypoxic, and was started on 15 L nonrebreather mask. He has been feeling sick for past few days. The patient was found to be on lactic acidosis secondary to septic shock secondary to community-acquired pneumonia. Nephrology consultation was done for further management of lactic acidosis, electrolyte imbalance and ESRD. #Septic shock 2/2 #Acute hypoxic respiratory failure 2/2 #Community-acquired pneumonia Met 3/4 SIRS criteria tachycardia, tachypnea, leukocytosis of 14.5, with lactic acid trending up to 7.9 in the setting of community-acquired pneumonia revealed on chest x-ray -Treat the underlying cause that is sepsis secondary to community-acquired pneumonia -Continue with Zosyn -Currently pH is 7.45. Scheduled for dialysis today. #Hypokalemia, resolved Etiology currently unknown -Monitor and replete as needed #Hypomagnesemia Mg of 1.5 this morning -Recommended 2g MgSO4 in the setting of ESRD -Monitor and replete as needed #Hypoosmolar hypervolemic hyponatremia Likely in the setting of ESRD -Continue with regularly scheduled hemodialysis on TTS #ESRD, currently seems euvolemic Renal panel revealed chloride 92, bicarb 32, creatinine 4.5 and GFR 14 significant for ESRD -We will proceed with regularly scheduled hemodialysis on TTS #CRISTIANO #DM type II #Hypertension -Management deferred to primary ICU team #Lactic acidosis , resolved Thank you for the opportunity to participate nephrology team in this patient care. The patient's management plan was discussed with my attending physician Dr. Pineda, MD Sheldon Bazan MD, PGY2 Attending Provider Attestation/Addendum Patient seen and examined with resident physician Dr. Bazan. Note reviewed, agree with findings and recommendations. Patient currently seen in ICU. Admitted with hypoglycemia, AMS His usual dialysis schedule Sunday, , Sunday . Patient currently seen on dialysis. Tolerating dialysis without any problems. Hemodialysis for 3 hours, 2K, ultrafiltration 1 L, Epogen 6000, no heparin ordered. Plan of care discussed with the dialysis nurse. Please see dialysis flowsheet for further details. Dr. Chadwick called-wants to take over his patient. Will defer nephrology care to Dr. Chadwick. Spoke to Dr. Root, ICU team.
[2024-12-09] MEDS: HEPARIN SOD INJ 1000 UNIT/ML VIAL 10 ML 3500 UNIT INDWELLCAT (16:02)
--- NOTE | 2024-12-09 16:33 | XR_ITS ---
Examination: Abdomen sonogram, complete Date and time of exam: December 09, 2024 1744 hours INDICATIONS: Abdominal pain this week, distended gallbladder on CT abdomen study December 08, 2024. Technique: Multiple real-time grayscale transabdominal sonographic images of the abdomen have been obtained. Findings: Negative for gallstones No gallbladder wall 0.2 cm Common bile duct 0.4 cm Pancreatic head 1.1 cm Aorta not enlarged. Liver 19.0 cm no focal liver lesions Normal hepatopedal portal venous flow Patent IVC Absent right kidney Left kidney 10.2 x 7.1 x 3.7 cm cortex 1.8 cm Midpole cyst 24 mm Moderate left renal parenchymal scar formation Spleen 12.2 cm IMPRESSION: Negative for cholelithiasis, negative for cholecystitis Moderate hepatomegaly Moderate left renal parenchymal scar formation
--- NOTE | 2024-12-09 17:07 | PD.INTPROG ---
Documentation for date of: 12/09/24 Subjective Subjective Interval history: This is a 64yo M who states he was in his usual state of health earlier yesterday. In the evening he was confused and EMS was called. pts glucose was found to be low and he was given an amp of D50. In the ER he was noted to be hypoglycemic again and given additional D50. He was also hypoxic and SOB in the ER which he states now he had not been at home, of note he did have en episode of emesis en route. He was started on a bipap. He was felt to be septic and started on abx. Imaging showed b/l infiltrate in the lungs. His BP started to drift downward and he was given 1.5lt of IVF followed by another 500cc. He is on midodrine TID At home. His BP was still soft and therefore an ICU eval was requested. 12/09- no acute overnight events, feels well, improvement in his repiratory status and his BP today. denies pain , n/v or additional sxs at this time though still has some mild abd discomfort Critical Care Note Critical care time (min.): 45 Exam Vital Signs Temp Pulse Resp BP Pulse Ox O2 Del Method O2 Flow Rate 98.2 F 101 H 23 H 121/49 L 94 L Nasal Cannula 8 12/09/24 15:59 12/09/24 16:18 12/09/24 16:18 12/09/24 15:59 12/09/24 16:18 12/09/24 07:00 12/09/24 16:18 FiO2 112 12/09/24 09:00 Narrative Exam Gen- NAD, AAOx3, obese, HEENT- NC/AT, mucosa hydrated, sclera anicteric, EOMI Chest- scattered crackles at post base, HRRR, no increase in WOB Abd- s/bs+, some discomfort to deep palpation over the pubic area Ext- no edema, pulses palp, no clubbing, no mottling, moves all 4 Physical Exam Completion Physical Exam Complete?: Yes Objective - [employer] Labs 12/09/24 02:23 12/09/24 02:23 Labs: Laboratory Results - last 24 hr 12/08/24 12/08/24 12/09/24 19:54 22:58 02:23 WBC 18.1 H D RBC 3.60 L Hgb 12.1 L Hct 34.1 L MCV 95 MCH 33.6 MCHC 35.5 RDW Std Deviation 45.0 H Plt Count 181 Neut % (Auto) 78 Lymph % (Auto) 16 [place] % (Auto) 4 Eos % (Auto) 0 Baso % (Auto) 1 Neut # (Auto) 14.1 H Lymph # (Auto) 3.0 [place] # (Auto) 0.8 Eos # (Auto) 0.1 Baso # (Auto) 0.1 Immature Gran # (Auto) 0.16 H Absolute Nucleated RBC 0.00 Immature Gran % 1 H Nucleated RBC % 0 PT 12.2 INR 1.1 APTT 37.6 H D Sodium 135 L Potassium 3.9 Chloride 97 L Carbon Dioxide 27.3 Anion Gap 11 BUN 32 H Creatinine 4.6 H* Estim Creat Clear Calc 18.0 L eGFR 14 L* BUN/Creatinine Ratio 7 L Glucose [address] Glu mg/dL 117 Hemoglobin A1c 5.7 Calculated Osmolality 280 Lactic Acid 7.5 H* 3.8 H 2.1 H Calcium 9.5 Corrected Calcium 10.1 Magnesium 1.5 L Total Bilirubin 0.4 AST 11 ALT < 7 L Alkaline Phosphatase 101 Total Protein 5.8 Albumin 3.3 L Globulin 2.5 Albumin/Globulin Ratio 1.3 Triglycerides 171 H Cholesterol 93 L LDL Cholesterol, Calc 10 HDL Cholesterol 49 Cholesterol/HDL Ratio 1.9 L TSH 1.20 Random Vancomycin 11.5 12/09/24 07:53 WBC RBC Hgb Hct MCV MCH MCHC RDW Std Deviation Plt Count Neut % (Auto) Lymph % (Auto) [place] % (Auto) Eos % (Auto) Baso % (Auto) Neut # (Auto) Lymph # (Auto) [place] # (Auto) Eos # (Auto) Baso # (Auto) Immature Gran # (Auto) Absolute Nucleated RBC Immature Gran % Nucleated RBC % PT INR APTT Sodium Potassium Chloride Carbon Dioxide Anion Gap BUN Creatinine Estim Creat Clear Calc eGFR BUN/Creatinine Ratio Glucose Estimated Ave Glu mg/dL Hemoglobin A1c Calculated Osmolality Lactic Acid 1.6 Calcium Corrected Calcium Magnesium Total Bilirubin AST ALT Alkaline Phosphatase Total Protein Albumin Globulin Albumin/Globulin Ratio Triglycerides Cholesterol LDL Cholesterol, Calc HDL Cholesterol Cholesterol/HDL Ratio TSH Random Vancomycin Assessment & Plan Additional Assessment Additional Assessment: In summary this is a 64yo M admitted to the ICU for hypotension a/p [employer] AMS- now resolved after hypoglycemia tx CV Shock- likely due to sepsis and now resolved Resp Acute Hypoxic Resp Failure- improved Aspiration PNA- Vanc/zosyn, once cx neg then deescalate, if MRSA swab neg then can stop Vanc - check cocci - fu with flu/RSV - Chest CT shows consolidation and resolution of nodular pattern from yesterday - mucomyst/duoneb q4 with CPT added and IS encouraged CRISTIANO- CPAP qHS Renal ESRD on HD- fu with nephrology HypoK- replete PO and recheck HypoNa- mild, monitor HypoMg- given 4gr IV mag Lactic Acidosis- improved GI stable Endo DM- FS ACHS, SSI Heme Leukocytosis- pts WBC has now dropped to 3.6 -> likely due to sepsis - bounced back today Anemia- mild, monitor DVT proph- heparin [id number] Non occlusive catheter associated thrombosis on R ID Sepsis- on abx and cx pending case d/w ER and ICU team labs, imaging, records reviewed ~ 45ccmin required for eval, exam, review, intervention, discussion and formulation of POC for this critically ill pt with septic shock at high risk for further and ongoing decompensation Provider Notation Provider Notation: Although this document has been carefully reviewed, there may still be some phonetic and other typographical errors. These errors are purely grammatical due to imperfections in the software program and should not be construed in any way to compromise the substance of the patient's medical care during this visit. Thank you for the opportunity and privilege in assisting you with this patient's care and management.
--- NOTE | 2024-12-09 17:16 | ESPR_ITS ---
Documentation for date of: 12/09/24 Subjective Subjective Interval history: Patient is a 64-year-old male with past medical history significant for end- stage renal disease Sunday following Dr. Chadwick, CRISTIANO on CPAP, hypertension, type 2 diabetes, gastric bypass, bilateral basal ganglia infarcts presented to the ED with hypoglycemia. Per EMS, patient was ANO x 3 but blood sugar was 28, gave D10 amp. Per patient, patient noted to be extremely weak after patient received 20 units of long-acting insulin after blood sugar at home was 300 at 4 PM yesterday. Patient's last blood sugar check prior to EMS arrival was 42. In the ED, patient had increased work of breathing, on nonrebreather mask at 15 L saturating 92% and later transitioned to BiPAP. Patient also was presenting with low MAP of 50s, and despite 2 L fluid bolus and 25 g albumin, fluid for cortisone and midodrine, patient's MAP failed to sustain at 65. Labs significant for elevated lactic acid of 7.9, leukocytosis of 14.5, and hypokalemia. Imaging showed bilateral groundglass opacities and bilateral lungs, and chest x-ray showed bilateral pneumonia. ICU was further consulted for further management of patient's distributive shock presentation. 12/09/2024: Overnight, Levophed requirements are decreased, and turned off at 730 this morning. Patient tolerated CPAP well for his sleep apnea. Total urine output overnight was 150 cc. Patient since admission has not had any bowel movements reported. In addition, patient's chest CT showed significant bilateral pneumonia, and is currently on IV Zosyn. Patient's palliative senior np, Dr. Lester will continue to follow patient while in the hospital. Patient also received his dialysis for his hemodialysis days today completing a total of 3 hours, removing 2 L. Patient is stable for downgrade to telemetry, and signed out patient to team A who will follow-up with patient's care starting tomorrow. Exam Vital Signs Temp Pulse Resp BP Pulse Ox O2 Del Method O2 Flow Rate 98.2 F 101 H 23 H 121/49 L 94 L Nasal Cannula 8 12/09/24 15:59 12/09/24 16:18 12/09/24 16:18 12/09/24 15:59 12/09/24 16:18 12/09/24 07:00 12/09/24 16:18 FiO2 112 12/09/24 09:00 Narrative Exam General Appearance: Pt is a well-developed, male no acute distress saturating 94% on 5 L nasal cannula. HEENT: NC/AT, no scleral icterus, no conjunctival pallor, moist mucous membranes, no cervical adenopathy Chest: Right hemodialysis cath in place. No signs of erythema or or pus noted around site. Lungs: No assessory muscle use noted. Crackles appreciated in left upper lobe and mild crackles in bilateral lower bases. CVS: RRR, S1/S2 heard, no murmurs or rubs appreciated ABD: Obese abdomen with tenderness on deep palpation to left upper quadrant and mild tenderness to palpation on left lower quadrant and suprapubic area, otherwise soft, nondistended bowel sounds heard. Longoria sign negative. Skin: Chronic venous stasis in right lower hernandez, bruising noted around old right arm AV fistula with no palpable thrill, otherwise normal without any rashes, warm to touch, no peripheral edema Neuro: A&O x 3. GCS 15. No gross neurological deficits. Sensory grossly intact. RUE and LUE 4+/5, RLE 4-/5, LLE 4+/5 Psych: Appropriate mood and affect. Objective Labs 12/09/24 02:23 12/09/24 02:23 Labs: Laboratory Results - last 24 hr 12/08/24 12/08/24 12/09/24 19:54 22:58 02:23 WBC 18.1 H D RBC 3.60 L Hgb 12.1 L Hct 34.1 L MCV 95 MCH 33.6 MCHC 35.5 RDW Std Deviation 45.0 H Plt Count 181 Neut % (Auto) 78 Lymph % (Auto) 16 [place] % (Auto) 4 Eos % (Auto) 0 Baso % (Auto) 1 Neut # (Auto) 14.1 H Lymph # (Auto) 3.0 [place] # (Auto) 0.8 Eos # (Auto) 0.1 Baso # (Auto) 0.1 Immature Gran # (Auto) 0.16 H Absolute Nucleated RBC 0.00 Immature Gran % 1 H Nucleated RBC % 0 PT 12.2 INR 1.1 APTT 37.6 H D Sodium 135 L Potassium 3.9 Chloride 97 L Carbon Dioxide 27.3 Anion Gap 11 BUN 32 H Creatinine 4.6 H* Estim Creat Clear Calc 18.0 L eGFR 14 L* BUN/Creatinine Ratio 7 L Glucose [address] Glu mg/dL 117 Hemoglobin A1c 5.7 Calculated Osmolality 280 Lactic Acid 7.5 H* 3.8 H 2.1 H Calcium 9.5 Corrected Calcium 10.1 Magnesium 1.5 L Total Bilirubin 0.4 AST 11 ALT < 7 L Alkaline Phosphatase 101 Total Protein 5.8 Albumin 3.3 L Globulin 2.5 Albumin/Globulin Ratio 1.3 Triglycerides 171 H Cholesterol 93 L LDL Cholesterol, Calc 10 HDL Cholesterol 49 Cholesterol/HDL Ratio 1.9 L TSH 1.20 Random Vancomycin 11.5 12/09/24 07:53 WBC RBC Hgb Hct MCV MCH MCHC RDW Std Deviation Plt Count Neut % (Auto) Lymph % (Auto) [place] % (Auto) Eos % (Auto) Baso % (Auto) Neut # (Auto) Lymph # (Auto) [place] # (Auto) Eos # (Auto) Baso # (Auto) Immature Gran # (Auto) Absolute Nucleated RBC Immature Gran % Nucleated RBC % PT INR APTT Sodium Potassium Chloride Carbon Dioxide Anion Gap BUN Creatinine Estim Creat Clear Calc eGFR BUN/Creatinine Ratio Glucose Estimated Ave Glu mg/dL Hemoglobin A1c Calculated Osmolality Lactic Acid 1.6 Calcium Corrected Calcium Magnesium Total Bilirubin AST ALT Alkaline Phosphatase Total Protein Albumin Globulin Albumin/Globulin Ratio Triglycerides Cholesterol LDL Cholesterol, Calc HDL Cholesterol Cholesterol/HDL Ratio TSH Random Vancomycin ABG Interpretation ABG results: 12/08/24 04:16 ABG pH 7.45 ABG pCO2 33 ABG pO2 69 L ABG HCO3 23 ABG O2 Saturation 94 ABG Base Excess 0 Quality Measures Quality Measures none Assessment & Plan Assessment Current Active Medications: Generic Name Dose Route Start Last Admin Trade Name Saiq PRN Reason Stop Dose Admin Acetaminophen 650 mg 12/08/24 06:25 Acetaminophen 325 Mg Tablet PO 01/07/25 06:24 Q6H PRN Fever >101.5 Acetylcysteine 3 ml 12/09/24 10:00 12/09/24 16:13 Acetylcysteine Rt Susy 10% 4 Ml Nebu INH 01/08/25 09:59 3 ml Q4HRRT ERIC Administration Albuterol/Ipratropium 3 ml 12/08/24 06:32 12/08/24 06:49 Albuterol/Ipratropium (Duoneb) Rt Susy 3 Ml Nebu INH 01/07/25 06:59 3 ml Q4HRRT PRN Administration SOB, Wheezing Albuterol/Ipratropium 3 ml 12/09/24 09:30 12/09/24 17:09 Albuterol/Ipratropium (Duoneb) Rt Susy 3 Ml Nebu INH 01/08/25 09:29 Not Given Q4HRRT ERIC Dextrose 25 ml 12/08/24 06:40 Dextrose 50%-Water Inj 50 Ml Syringe IV 01/07/25 06:39 Q15MIN PRN BG 50-70 responsive npo pt Dextrose 50 ml 12/08/24 06:40 Dextrose 50%-Water Inj 50 Ml Syringe IV 01/07/25 06:39 Q15MIN PRN BG <50 OR BG <70 & pt unresponsive Fludrocortisone Acetate 0.1 mg 12/08/24 14:00 12/09/24 05:11 Fludrocortisone Acetate 0.1 Mg Tablet PO 01/07/25 13:59 0.1 mg TID ERIC Administration Glucagon 1 mg 12/08/24 06:40 Glucagon Inj 1 Mg Vial IM Q15MIN PRN BG <70, and no IV access Heparin Sodium (Porcine) 5,000 unit 12/08/24 14:00 12/09/24 05:08 Heparin Sod Inj 5000 Unit/Ml Vial SC 12/22/24 13:59 5,000 unit Q8HR ERIC Administration Heparin Sodium (Porcine) 3,500 unit 12/09/24 12:53 12/09/24 16:02 Heparin Sod Inj 1000 Unit/Ml Vial 10 Ml INDWELLCAT 12/23/24 12:52 3,500 unit X1 PRN Administration DIALYSIS Piperacillin/Tazobactam/Dextrose 3.375 gm in 50 mls @ 12.5 mls/hr 12/08/24 21:00 12/09/24 09:50 Zosyn IV 12/15/24 20:59 12.5 mls/hr Q12HR ERIC Administration Norepinephrine/Dextrose 8 mg in 250 mls @ 8.207 mls/hr 12/08/24 10:32 12/09/24 07:30 Levophed In D5w 8mg/250ml IV 01/07/25 10:31 0 mcg/kg/min .Q24H PRN 0 mls/hr PER PROTOCOL Titration Protocol 0.05 MCG/KG/MIN Albumin Human 12.5 gm in 50 mls @ 100 mls/hr 12/09/24 12:53 Albuminar-25 Ivpb IV 01/08/25 12:52 PRN PRN DIALYSIS Insulin Human Lispro 0 unit 12/09/24 07:30 12/09/24 13:00 Insulin Lispro (Admelog) 1 Unit/0.01 Ml Unit SC 01/08/25 07:29 Not Given AC [facility] Protocol Midodrine 10 mg 12/09/24 14:00 Midodrine 5 Mg Tablet PO 01/08/25 13:59 TID [facility] Sennosides 1 tab 12/08/24 06:25 Senna Tablet PO 01/07/25 06:24 QDAY PRN constipation Protocol Plan Patient is a 64-year-old male with past medical history significant for end- stage renal disease Sunday following Dr. Chadwick, CRISTIANO on CPAP, hypertension, type 2 diabetes, gastric bypass, bilateral basal ganglia infarcts presented to the ED with hypoglycemia admitted for further management. ICU was further consulted for further management of patient's distributive shock presentation. NEURO #Acute encephalopathy?resolved Patient initially was altered, however on examination today, patient was A&O x 3. CARDIO #Distributive shock Most likely in the setting of sepsis due to acute infection of community- acquired pneumonia versus aspiration pneumonia Less likely to be cardiogenic shock as cardiac index is well above 2.2 and good contractility, less likely to be obstructive shock as no right ventricular dilatation seen Patient also presented with low-grade fever of 100.4 , since no fever spike Echocardiogram showed normal LV size and wall thickness. Estimated EF 60% with trace mitral and trace tricuspid regurgitation -On IV Zosyn, DC IV Vanc 12/09/23 -Can deescalate IV Abx after repeat cultures return -Pending finalized cultures #Hypertension-resolved Patient is currently hypotensive requiring Levophed drip Patient takes home lisinopril 40 mg daily, metolazone 2.5 mg daily, metoprolol succinate 100 mg twice daily, spironolactone 50 mg daily -Will hold home meds for now PULM #Bilateral Pneumonia Differential diagnosis: Aspiration pneumonia versus community-acquired pneumonia CT chest w/ contrast showed severe bilateral pneumonia Per EMS, patient was altered after choking on his emesis. Flu, RSV,and cocci negative -Will follow-up with flu, RSV, cocci results -Continue with IV zosyn and descalate after final cultures return -Duonebs and mucomyst scheduled [id number] awake, and follow with chest physiotherapy after QD #CRISTIANO Patient uses CPAP at night -Will continue with CPAP at night GI/FEN #Intractable nausea vomiting #Left abdominal pain #Gastric bypass DDx: diabetic gastroparesis d/t patient's subacute symptoms on n/v and 40 pound weight loss in the last 2 months Severe tenderness on palpation to left upper quadrant, mild tenderness to palpation to left lower quadrant and suprapubic tenderness. Patient noted to have intractable nausea vomiting for the last 2 months. Patient does have a history of gastric bypass in 2022. CT abdomen pelvis did show bilateral cystitis otherwise nothing suggesting acute findings CT chest showed thickening of the lateral wall of the esophagus, consider reflux esophagitis Patient today denied having any n/v today, and feels much better than the last 2 months. -f/u with EGD and outpatient GI consultation #Distended gallbladder #Hepatomegaly Bilirubin and LFTs stable. Patient takes home ursodiol, possibly for itching, but last refilled was 01/08/24, but patient states he takes this medication. -Continue to monitor daily labs -Reconcile home meds from home prior to starting ursodiol as patient denies any itching RENAL #Extensive nonocclusive thrombi #Abnormal finding of ?clot in Right internal jugular vein Chest CT read a suspicious for clot in the right internal jugular vein Right Upper Extremity US showed positive for nonocclusive thrombus in the right internal jugular vein, right subclavian, axillary, cephalic, brachial veins Despite concern for thrombus, patient denies any pain or RUE swelling. Patient's recent AV fistula stopped working 2 weeks, and is scheduled for replacement in [facility] in 2 weeks. -Patient was able tolerate HD today with no issues today -Per ACCP, there is little evidence to support starting anticoagulation. -Patient is currently on Heparin SC for DVT prophylaxis, and will defer to Nephrology for further recommendations #Lactic acidosis-resolved Patient came in with a lactic acid of 7.9, and peaked downward, and then upward to 7.5, prior to downtrending to 1.6. Patient received a total of 4.5L bolus. Patient continues to be fluid responsive, with collapsible IVC on bedside echo. #End-stage renal disease on hemodialysis #Right nephrectomy Patient follows Dr. Chadwick outpatient, Sunday for dialysis sessions. -Patient received HD session today -Nephrology, Dr. Chadwick, consulted and appreciate further recs -Started patient on home Fludrocortisone and Midodrine d/t patient having labile BP's especially during dialysis #Electrolyte imbalance #Hypokalemia #Hypomagnesemia -Replete electrolytes as necessary HEME/ONC #Normocytic anemia Most likely in the setting of end-stage renal disease ENDO #Hypoglycemia?resolved Patient presented with a blood sugar of 28 in the ED, and given amp of D50 as well as D10 drip #Type 2 diabetes on chronic insulin therapy-well controlled Patient takes NovoLog 5 units 3 times daily before meals as well as long-acting insulin, varies depending on patient's blood sugar level. Patient did take 20 units of Lantus last night. A1c 5.7. -Insulin sliding scale AC -Hypoglycemia protocol in place -Long acting insulin can be started tomorrow to see patient's short-acting insulin requirements in the next 24 hours, and add for tomorrow night ID #B/l Pneumonia in the setting of sepsis -Continue with IV antibiotics -Follow-up cultures -MRSA swab -See above for more details Health Maintenance: DVT prophylaxis: Heparin SQ Q8 Diet: Diabetic diet after passing swallow eval Jeffery: No Lines: PIV Supplemental O2: None CODE STATUS: Full code Disposition: Patient was admitted to ICU for further management of distributive shock, and will be downgraded to telemetry for further management. Patient's plan and care discussed with my attending, Dr. Dk Galdamez MD PGY-2
--- NOTE | 2024-12-09 18:38 | EVENTNT_ITS ---
Documentation for date of: 12/09/24 Event Note Event Note: ICU downgrade was received, and sign out given by Dr. Galdamez. Team A will assume care starting tomorrow 12/10/24. Dmitry Gonzalez is 64 yr M with PMH of ESRD (TTS under machine preservative filler Dr. Chadwick), obstructive sleep apnea on CPAP, hypertension, type 2 diabetes mellitus and status post gastric bypass 2022 who presented to [facility] emergency department on 12/07/2024 due to altered mental status and severe hy poglycemia. He was admitted for severe sepsis, acute hypoxic respiratory failure secondary to bilateral pneumonia. Was upgraded to ICU for pressors. BP now stable and patient will be downgraded. Internal medicine team to continue monitoring status and manage care.
--- NOTE | 2024-12-09 23:28 | PC.RT ---
PT given specimen cup for collection of Sputum, educated on sample collection.
[2024-12-10] VITALS (17 sets, daily range): BP systolic 99–123; BP diastolic 8–88; PULSE 70–117; RESP 17–37; TEMP 35.9–37.7; O2SAT 88–99; BMI 29.6
[2024-12-10] MEDS: ALBUTEROL/IPRATROPIUM (Duoneb) RT SOL 3 ML NEBU INH ×6 (03:42→23:08)
[2024-12-10] MEDS: MIDODRINE 5 MG TABLET 10 MG PO ×4 (05:57→21:39)
[2024-12-10] MEDS: FLUDROCORTISONE ACETATE 0.1 MG TABLET PO ×3 (05:57→21:37)
[2024-12-10] MEDS: HEPARIN SOD INJ 5000 UNIT/ML VIAL SC (05:58)
[2024-12-10 06:08] LABS: Basophils # (Auto) 0.1 Thou/mm3 (0.0-0.2); Basophils % (Auto) 1 % (0-2.5); Eosinophils # (Auto) 0.2 Thou/mm3 (0.0-0.5); Eosinophils % (Auto) 1 % (0-10); Hematocrit 29.8 % (41.0-53.0); Hemoglobin 10.2 g/dL (13.5-16.0); Immature Granulocytes % (Auto) 1 % (0-0); Immature Granulocytes Auto 0.13 Thou/mm3 (0.00-0.00); Lymphocytes % (Auto) 14 % (10-50); Mean Corpuscular HGB Conc 34.2 g/dl (31.0-37.0); Mean Corpuscular Hemoglobin 33.7 pg (25.0-35.0); Mean Corpuscular Volume 98 fL (80-100); Monocytes # (Auto) 0.6 Thou/mm3 (0.0-0.8); Monocytes % (Auto) 4 % (0-12); Neutrophils # (Auto) 11.3 Thou/mm3 (1.8-7.7); Neutrophils % (Auto) 79 % (37-80); Nucleated Red Blood Cell % 0 /100 WBC (0); Platelet Count 153 Thou/mm3 (140-440); Red Blood Count 3.03 Miln/mm3 (4.50-5.90); White Blood Count 14.2 Thou/mm3 (3.8-10.6)
[2024-12-10 07:06] LABS: Alanine Aminotransferase < 7 U/L (10-49); Albumin, Serum 3.1 gm/dL (3.4-4.8); Albumin/Globulin Ratio 1.4 (1.2-2.2); Alkaline Phosphatase 152 U/L (46-116); Anion Gap 11 (7-16); Aspartate Amino Transferase 11 U/L (0-34); BUN/Creatinine Ratio 8 Ratio (12-20); Bilirubin,Total 0.5 mg/dL (0.3-1.2); Blood Urea Nitrogen 26 mg/dL (9-23); Calcium 9.3 mg/dL (8.3-10.6); Carbon Dioxide 28.5 mMol/L (20.0-31.0); Chloride 97 mMol/L (98-107); Creatinine (Component) 3.4 mg/dL (0.6-1.3); Estimated Creatinine Clearance 24.8 mL/min (>60); Globulin 2.2 gm/dL (2.3-3.5); Glucose 119 mg/dL (74-106); Osmolality,Calculated 277 (275-295); Phosphorous 2.8 mg/dL (2.4-5.1); Potassium 3.5 mMol/L (3.4-5.1); Sodium 136 mMol/L (136-145); Total Protein 5.3 gm/dL (5.7-8.2); eGFR 19 See Note
[2024-12-10] MEDS: INSULIN LISPRO (AdmeLOG) 1 UNIT/0.01 ML UNIT SC (07:53)
--- NOTE | 2024-12-10 09:26 | ESPR_ITS ---
<Statement entered by Alison Garcia MD - 12/10/24 16:18> I discussed with and supervised my co-resident involved in the care of this patient. I agree with the assessment and plan as documented above. Patient seen and examined at bedside. Patient is calm, endorses some shortness of breath. On 10L of Oxymask, extremities warm. Imaging shows extensive nonocclusive clot. Patient human services assistant consulted and no recommendation for anticoagulation at this time. Patient denies any pain over the area. Regarding patient's pneumonia - leukocytosis improving. Will continue IV antibiotics and follow up on cultures. Alison Garcia MD PGY-3 Documentation for date of: 12/10/24 Subjective Subjective Interval history: Patient seen and examined at bedside. No acute events overnight. Complains of some shortness of breath still while on 10 L oxy mask saturating 93%. He is tolerating liquids but unable to tolerate solids since past 2 months. Last vomiting episode was over the weekend. Likely related to gastric bypass or esophageal thickening. No blood in the vomit per patient. He is planning to follow up with GI after discharge. Right arm is non tender with AV fistula and some bruising. MRSA and blood cultures negative, sputum culture still pending, cocci negative. Continue Zosyn 3.375mg BID for pneumonia and CPAP HS. WBCs have downtrended to 14, potassium 3.5 and was repleted. Neurologist Dr. Chadwick was consulted and does not recommend patient to be on any heparin drip. Will leave dialysis catheter in place. Exam Vital Signs Temp Pulse Resp BP Pulse Ox O2 Del Method O2 Flow Rate 96.8 F 100 24 H 105/70 98 CPAP 8 12/10/24 08:00 12/10/24 08:00 12/10/24 08:00 12/10/24 08:00 12/10/24 08:00 12/10/24 08:00 12/10/24 06:02 FiO2 40 12/10/24 04:00 Narrative Exam General Appearance: Pt is a well-developed, male no acute distress, HEENT: NC/AT, no scleral icterus, no conjunctival pallor, moist mucous membranes, no cervical adenopathy Chest: Right hemodialysis cath in place. No signs of erythema or or pus noted around site. Lungs: No assessory muscle use noted. Mild crackles b/l, on 10L oxy mask CVS: RRR, S1/S2 heard, no murmurs ABD: mild left side tenderness, normal BS, non distended Skin: bruising noted around right arm AV fistula, otherwise normal without any rashes, warm to touch, no peripheral edema Neuro: A&O x 3. No gross neurological deficits. Sensory grossly intact. Psych: Appropriate mood and affect. Objective Labs 12/11/24 04:28 12/11/24 04:28 Labs: Laboratory Results - last 24 hr 12/10/24 04:35 WBC 14.2 H RBC 3.03 L Hgb 10.2 L Hct 29.8 L MCV 98 MCH 33.7 MCHC 34.2 RDW Std Deviation 46.0 H Plt Count 153 Neut % (Auto) 79 Lymph % (Auto) 14 Dickson % (Auto) 4 Eos % (Auto) 1 Baso % (Auto) 1 Neut # (Auto) 11.3 H Lymph # (Auto) 2.0 Dickson # (Auto) 0.6 Eos # (Auto) 0.2 Baso # (Auto) 0.1 Immature Gran # (Auto) 0.13 H Absolute Nucleated RBC 0.00 Immature Gran % 1 H Nucleated RBC % 0 PT 11.0 INR 1.0 Sodium 136 Potassium 3.5 Chloride 97 L Carbon Dioxide 28.5 Anion Gap 11 BUN 26 H Creatinine 3.4 H D Estim Creat Clear Calc 24.8 L eGFR 19 L BUN/Creatinine Ratio 8 L Glucose 119 H Calculated Osmolality 277 Calcium 9.3 Corrected Calcium 10.0 Phosphorus 2.8 Magnesium 2.0 Total Bilirubin 0.5 AST 11 ALT < 7 L Alkaline Phosphatase 152 H D Total Protein 5.3 L Albumin 3.1 L Globulin 2.2 L Albumin/Globulin Ratio 1.4 ABG Interpretation ABG results: 12/08/24 04:16 ABG pH 7.45 ABG pCO2 33 ABG pO2 69 L ABG HCO3 23 ABG O2 Saturation 94 ABG Base Excess 0 Quality Measures Quality Measures none Assessment & Plan Assessment Current Active Medications: Generic Name Dose Route Start Last Admin Trade Name Freq PRN Reason Stop Dose Admin Acetaminophen 650 mg 12/08/24 06:25 Acetaminophen 325 Mg Tablet PO 01/07/25 06:24 Q6H PRN Fever >101.5 Acetylcysteine 3 ml 12/09/24 10:00 12/10/24 06:01 Acetylcysteine Rt Susy 10% 4 Ml Nebu INH 01/08/25 09:59 Not Given Q4HRRT ERIC Albuterol/Ipratropium 3 ml 12/08/24 06:32 12/08/24 06:49 Albuterol/Ipratropium (Duoneb) Rt Susy 3 Ml Nebu INH 01/07/25 06:59 3 ml Q4HRRT PRN Administration SOB, Wheezing Albuterol/Ipratropium 3 ml 12/09/24 09:30 12/10/24 06:01 Albuterol/Ipratropium (Duoneb) Rt Susy 3 Ml Nebu INH 01/08/25 09:29 3 ml Q4HRRT ERIC Administration Dextrose 25 ml 12/08/24 06:40 Dextrose 50%-Water Inj 50 Ml Syringe IV 01/07/25 06:39 Q15MIN PRN BG 50-70 responsive npo pt Dextrose 50 ml 12/08/24 06:40 Dextrose 50%-Water Inj 50 Ml Syringe IV 01/07/25 06:39 Q15MIN PRN BG <50 OR BG <70 & pt unresponsive Fludrocortisone Acetate 0.1 mg 12/08/24 14:00 12/10/24 05:57 Fludrocortisone Acetate 0.1 Mg Tablet PO 01/07/25 13:59 0.1 mg TID ERIC Administration Glucagon 1 mg 12/08/24 06:40 Glucagon Inj 1 Mg Vial IM Q15MIN PRN BG <70, and no IV access Heparin Sodium (Porcine) 5,000 unit 12/08/24 14:00 12/10/24 05:58 Heparin Sod Inj 5000 Unit/Ml Vial SC 12/22/24 13:59 5,000 unit Q8HR ERIC Administration Heparin Sodium (Porcine) 3,500 unit 12/09/24 12:53 12/09/24 16:02 Heparin Sod Inj 1000 Unit/Ml Vial 10 Ml INDWELLCAT 12/23/24 12:52 3,500 unit X1 PRN Administration DIALYSIS Piperacillin/Tazobactam/Dextrose 3.375 gm in 50 mls @ 12.5 mls/hr 12/08/24 21:00 12/09/24 21:39 Zosyn IV 12/15/24 20:59 12.5 mls/hr Q12HR ERIC Administration Norepinephrine/Dextrose 8 mg in 250 mls @ 8.207 mls/hr 12/08/24 10:32 12/09/24 07:30 Levophed In D5w 8mg/250ml IV 01/07/25 10:31 0 mcg/kg/min .Q24H PRN 0 mls/hr PER PROTOCOL Titration Protocol 0.05 MCG/KG/MIN Albumin Human 12.5 gm in 50 mls @ 100 mls/hr 12/09/24 12:53 Albuminar-25 Ivpb IV 01/08/25 12:52 PRN PRN DIALYSIS Insulin Human Lispro 0 unit 12/09/24 07:30 12/10/24 07:53 Insulin Lispro (Admelog) 1 Unit/0.01 Ml Unit SC 01/08/25 07:29 3 unit AC ERIC Administration Protocol Midodrine 10 mg 12/09/24 14:00 12/10/24 05:57 Midodrine 5 Mg Tablet PO 01/08/25 13:59 10 mg TID ERIC Administration Sennosides 1 tab 12/08/24 06:25 Senna Tablet PO 01/07/25 06:24 QDAY PRN constipation Protocol Plan Dmitry Gonzalez is a 64-year-old male with past medical history significant for end-stage renal disease Sunday following Dr. Chadwick, CRISTIANO on CPAP, hypertension, type 2 diabetes, gastric bypass, bilateral basal ganglia infarcts presented to the ED with hypoglycemia. Was updgraded to ICU for management of septic shock secondary to pneumonia. #AHRF 2/2 B/L CAP Differential diagnosis: Aspiration pneumonia versus community-acquired pneumonia CT chest w/ contrast showed severe bilateral pneumonia Per EMS, patient was altered after choking on his emesis. Flu, RSV,and cocci negative -sputum cultures pending -Continue with IV zosyn 3.375 twice daily -Duonebs and mucomyst scheduled [id number] awake, and follow with chest physiotherapy after QD -daily attempts to wean down oxygen need #Septic shock (resolved)-2/2 CAP #Lactic acidosis-resolved Most likely due to community-acquired pneumonia versus aspiration pneumonia Met SIRS 4/4 and no improvement in blood pressure despite fluid resuscitation. Lactic acid peaked at 7.5 Less likely to be cardiogenic shock as cardiac index is well above 2.2 and good contractility, less likely to be obstructive shock as no right ventricular dilatation seen Echocardiogram showed normal LV size and wall thickness. Estimated EF 60% with trace mitral and trace tricuspid regurgitation Vanc was discontinued on 12/09/24 after MRSA nares negative -Continue IV Zosyn 3.375 BID -Urine cultures pending -Hold home antihypertensive medications lisinopril 40 daily, metolazone 2.5 mg daily, metoprolol succinate 100 mg twice daily, spironolactone 50 mg daily #Hx CRISTIANO Patient uses CPAP at night -Will continue with CPAP at night #Intractable nausea vomiting-resolved #Left abdominal pain #Hx Gastric bypass 2022 DDx: n/v may be due to gastric bypass, gastroparesis, esophageal thickening. Patient is only able to tolerate liquids with vomiting episodes after having solid foods. He is planning to follow-up with GI specialist and surgeon after admission. Has lost approximately 40 pounds over the past 2 months. Tenderness on palpation left abdomen. CT abdomen pelvis showed bilateral cystitis, distended bladder, hepatomegaly. Bilirubin and LFTs stable. CT chest showed thickening of the lateral wall of the esophagus, consider reflux esophagitis -f/u with EGD and outpatient GI consultation -Ondansetron as needed -Encourage oral intake #RUE nonocclusive thrombi Chest CT read a suspicious for clot in the right internal jugular vein Right Upper Extremity US showed positive for nonocclusive thrombus in the right internal jugular vein, right subclavian, axillary, cephalic, brachial veins Despite concern for thrombus, patient denies any pain or RUE swelling. Patient's recent AV fistula stopped working 2 weeks ago. Scheduled for replacement in [facility] in 2 weeks. He was resumed on hemodialysis sessions. Most recent session yesterday. -Dr. Chadwick was consulted and does not recommend patient to be on heparin drip -Will not remove dialysis catheter #End-stage renal disease on hemodialysis #Right nephrectomy Patient follows Dr. Chadwick outpatient, Sunday for dialysis sessions. -Patient received HD session today -Nephrology, Dr. Chadwick, consulted and appreciate further recs -Started patient on home Fludrocortisone 0.1 mg TID and Midodrine 10 mg TID per nephrology rec -will be placement of left AV fistula for dialysis #Hypokalemia #Hypomagnesemia -Replete electrolytes as necessary -Potassium greater than 4 ? Mag greater than 2 #Normocytic anemia Most likely in the setting of end-stage renal disease -Daily CBC #Hypoglycemia?resolved Patient presented with a blood sugar of 28 in the ED, and given amp of D50 as well as D10 drip #Type 2 diabetes on chronic insulin therapy-well controlled Patient takes NovoLog 5 units 3 times daily before meals as well as long-acting insulin, varies depending on patient's blood sugar level. Patient did take 20 units of Lantus last night. A1c 5.7. -Insulin sliding scale AC -Hypoglycemia protocol in place Health Maintenance: DVT prophylaxis: on heparin drip Diet: Diabetic clear liquid diet Jeffery: No CODE STATUS: Full code Disposition: Septic shock resolved, telemetry, pneumonia mgmt. The patient's management plan was discussed with my attending physician Dr. Davis and senior Dr. Garcia. Elizabeth Koo, PGY-1 Attending Provider Attestation/Addendum IMikayla, , attest that I was physically present for the lerma portions of the service and evaluated the patient with the resident and I reviewed and discussed the case with the resident and agree with the resident's findings and plans of care as documented above Patient seen and evaluated this AM requiring 10L oxymask with O2 sat in the 80s. Will switch to HFNC due to increasing O2 demand. Anticoagulation was started due to catheter induced thrombosis. However, case was discussed with human services assistant who states the clot has been chronic and the cause of patient's fistula malfunction. Patient has undergone 2 failed vascular interventions for AV fistula malfunction. Nephrology does not wish to remove Permacath to continue scheduled dialysis or anticoagulate. Will continue [facility] current management for pneumonia and titrate O2 as tolerated
[2024-12-10] MEDS: POTASSIUM CHLORIDE 20 mEq TABCR 40 MEQ PO (09:49)
[2024-12-10] MEDS: PIPER/TAZO 3.375 GM 3.375 GM/50 ML BAG IV ×2 (09:49→20:41)
[2024-12-10] MEDS: ACETYLCYSTEINE RT SOL 10% 4 ML NEBU 3 ML INH ×4 (11:41→23:08)
[2024-12-10] MEDS: HEPARIN SOD INJ 5000 UNIT/ML VIAL 3650 UNIT IV (12:31)
[2024-12-10] MEDS: Heparin/D5w 25K 250 ML Ivpb 25,000 UNIT/250 ML BAG 16.38 UNIT IV (12:40)
--- NOTE | 2024-12-10 14:24 | PC.SS ---
Rounding: Pt on 10L O2, on IV ABX for PNA
[2024-12-10 14:36] LABS: Cocci Serology, IgG Negative (Negative)
--- NOTE | 2024-12-10 18:16 | XR_ITS ---
Examination: AP chest single view TECHNIQUE: AP portable upright chest single view Exam date and time: December 10, 2024 6:38 PM Comparison December 08, 2024 INDICATIONS: Continuing shortness of breath this week. FINDINGS: Worsening now bilateral pneumonia, severe and extensive in the left lung No major cardiac enlargement Right internal jugular dialysis catheter tips SVC IMPRESSION: Worsening bilateral pneumonia
[2024-12-10 19:29] LABS: Partial Thromboplastin Time 33.5 Seconds (22.0-36.0)
--- NOTE | 2024-12-10 23:12 | PC.RT ---
Pt has been unable to produce sputum via spontaneous expectoration despit receiving multiple doses of Mucomyst. Pt has cleart breath sounds and dry cough, specimen cup remains bedside.
[2024-12-11] VITALS (30 sets, daily range): BP systolic 108–167; BP diastolic 58–100; PULSE 77–104; RESP 12–30; TEMP 36.3–37.4; O2SAT 90–100; BMI 29.5
[2024-12-11] MEDS: FLUDROCORTISONE ACETATE 0.1 MG TABLET PO ×3 (05:12→21:16)
[2024-12-11] MEDS: MIDODRINE 5 MG TABLET 10 MG PO ×2 (05:12→14:05)
[2024-12-11 06:02] LABS: Prothrombin Time 10.8 Seconds (9.0-12.2)
[2024-12-11 06:04] LABS: Basophils # (Auto) 0.1 Thou/mm3 (0.0-0.2); Basophils % (Auto) 1 % (0-2.5); Eosinophils # (Auto) 0.5 Thou/mm3 (0.0-0.5); Eosinophils % (Auto) 4 % (0-10); Hematocrit 30.9 % (41.0-53.0); Hemoglobin 10.4 g/dL (13.5-16.0); Immature Granulocytes % (Auto) 0 % (0-0); Immature Granulocytes Auto 0.04 Thou/mm3 (0.00-0.00); Lymphocytes # (Auto) 1.9 Thou/mm3 (1.0-4.8); Lymphocytes % (Auto) 16 % (10-50); Mean Corpuscular HGB Conc 33.7 g/dl (31.0-37.0); Mean Corpuscular Hemoglobin 33.3 pg (25.0-35.0); Mean Corpuscular Volume 99 fL (80-100); Monocytes # (Auto) 0.5 Thou/mm3 (0.0-0.8); Monocytes % (Auto) 4 % (0-12); Neutrophils # (Auto) 9.4 Thou/mm3 (1.8-7.7); Neutrophils % (Auto) 76 % (37-80); Nucleated Red Blood Cell % 0 /100 WBC (0); Platelet Count 193 Thou/mm3 (140-440); RDW Standard Deviation 46.5 fL (35.1-43.9); Red Blood Count 3.12 Miln/mm3 (4.50-5.90); White Blood Count 12.4 Thou/mm3 (3.8-10.6)
[2024-12-11] MEDS: ALBUTEROL/IPRATROPIUM (Duoneb) RT SOL 3 ML NEBU INH ×5 (06:16→23:15)
[2024-12-11] MEDS: ACETYLCYSTEINE RT SOL 10% 4 ML NEBU 3 ML INH ×5 (06:17→23:16)
[2024-12-11 06:43] LABS: Alanine Aminotransferase < 7 U/L (10-49); Anion Gap 10 (7-16); Aspartate Amino Transferase < 8 U/L (0-34); BUN/Creatinine Ratio 8 Ratio (12-20); Bilirubin,Total 0.4 mg/dL (0.3-1.2); Blood Urea Nitrogen 30 mg/dL (9-23); Calcium 9.6 mg/dL (8.3-10.6); Carbon Dioxide 26.8 mMol/L (20.0-31.0); Chloride 100 mMol/L (98-107); Creatinine (Component) 3.8 mg/dL (0.6-1.3); Estimated Creatinine Clearance 22.2 mL/min (>60); Glucose 109 mg/dL (74-106); Magnesium 2.2 mg/dL (1.6-2.6); Osmolality,Calculated 281 (275-295); Phosphorous 2.5 mg/dL (2.4-5.1); Potassium 3.6 mMol/L (3.4-5.1); Sodium 137 mMol/L (136-145); Total Protein 5.7 gm/dL (5.7-8.2); eGFR 17 See Note
[2024-12-11 06:44] LABS: Albumin, Serum 3.3 gm/dL (3.4-4.8); Albumin/Globulin Ratio 1.4 (1.2-2.2); Alkaline Phosphatase 128 U/L (46-116); Calcium (Corrected) 10.2 mg/dL (8.5-10.1); Globulin 2.4 gm/dL (2.3-3.5)
--- NOTE | 2024-12-11 10:00 | ESPR_ITS ---
<Statement entered by Alison Garcia MD - 12/11/24 13:34> I discussed with and supervised my co-resident involved in the care of this patient. I agree with the assessment and plan as documented above. Patient seen during dialysis. Had XR yesterday that showed worsening pneumonia. Clinically, patient appears better. On IV antibiotics. Remains on HFNC 25L at FiO2 40%, will wean as tolerated. Alison Garcia MD PGY-3 Documentation for date of: 12/11/24 Subjective Subjective Interval history: Patient seen and examined at bedside while in dialysis session. Just had small emeisis episode after eating jello. He is off oxy mask and on HFNC today at 997- 98% O2 on 15L 40%FiO2. Continue to titrate oxygen. Repeat chest x-ray showed worsening left-sided pneumonia. However, clinically patient is improving and stable. Leukocytosis improving 12.4 today. Continue Zosyn for pneumonia, DuoNeb, Mucomyst. Pressures are stable with fludrocortisone and midodrine. Anticipate discharge next 24 hrs if oxygen demand improving. Exam Vital Signs Temp Pulse Resp BP Pulse Ox O2 Del Method O2 Flow Rate 97.3 F 82 18 127/73 93 L High Flow Nasal Cannula 35 12/11/24 08:33 12/11/24 09:45 12/11/24 08:33 12/11/24 09:45 12/11/24 08:33 12/11/24 08:00 12/11/24 08:00 FiO2 40 12/11/24 08:33 Narrative Exam General Appearance: Pt is a well-developed, male no acute distress, getting dialysis HEENT: NC/AT, no scleral icterus, no conjunctival pallor, moist mucous membranes, no cervical adenopathy Chest: Right hemodialysis cath in place. No signs of erythema or or pus noted around site. Lungs: No assessory muscle use noted. Mild crackles b/l, on HFNC CVS: RRR, S1/S2 heard, no murmurs ABD: mild left side tenderness, normal BS, non distended Skin: bruising noted around right arm AV fistula, otherwise normal without any rashes, warm to touch, no peripheral edema Neuro: A&O x 3. No gross neurological deficits. Sensory grossly intact. Psych: Appropriate mood and affect. Objective Labs 12/11/24 04:28 12/11/24 04:28 Labs: Laboratory Results - last 24 hr 12/08/24 12/10/24 12/11/24 14:14 18:44 04:28 WBC 12.4 H RBC 3.12 L Hgb 10.4 L Hct 30.9 L MCV 99 MCH 33.3 MCHC 33.7 RDW Std Deviation 46.5 H Plt Count 193 D Neut % (Auto) 76 Lymph % (Auto) 16 Moore % (Auto) 4 Eos % (Auto) 4 Baso % (Auto) 1 Neut # (Auto) 9.4 H Lymph # (Auto) 1.9 Moore # (Auto) 0.5 Eos # (Auto) 0.5 Baso # (Auto) 0.1 Immature Gran # (Auto) 0.04 H Absolute Nucleated RBC 0.00 Immature Gran % 0 Nucleated RBC % 0 PT 10.8 INR 1.0 APTT 33.5 Sodium 137 Potassium 3.6 Chloride 100 Carbon Dioxide 26.8 Anion Gap 10 BUN 30 H Creatinine 3.8 H Estim Creat Clear Calc 22.2 L eGFR 17 L BUN/Creatinine Ratio 8 L Glucose 109 H Calculated Osmolality 281 Calcium 9.6 Corrected Calcium 10.2 H Phosphorus 2.5 Magnesium 2.2 Total Bilirubin 0.4 AST < 8 ALT < 7 L Alkaline Phosphatase 128 H D Total Protein 5.7 Albumin 3.3 L Globulin 2.4 Albumin/Globulin Ratio 1.4 Coccidioides IgG Ab Negative ABG Interpretation ABG results: 12/08/24 04:16 ABG pH 7.45 ABG pCO2 33 ABG pO2 69 L ABG HCO3 23 ABG O2 Saturation 94 ABG Base Excess 0 Quality Measures Quality Measures none Assessment & Plan Assessment Current Active Medications: Generic Name Dose Route Start Last Admin Trade Name Freq PRN Reason Stop Dose Admin Acetaminophen 650 mg 12/08/24 06:25 Acetaminophen 325 Mg Tablet PO 01/07/25 06:24 Q6H PRN Fever >101.5 Acetylcysteine 3 ml 12/09/24 10:00 12/11/24 06:17 Acetylcysteine Rt Susy 10% 4 Ml Nebu INH 01/08/25 09:59 3 ml Q4HRRT ERIC Administration Albuterol/Ipratropium 3 ml 12/08/24 06:32 12/08/24 06:49 Albuterol/Ipratropium (Duoneb) Rt Susy 3 Ml Nebu INH 01/07/25 06:59 3 ml Q4HRRT PRN Administration SOB, Wheezing Albuterol/Ipratropium 3 ml 12/09/24 09:30 12/11/24 06:16 Albuterol/Ipratropium (Duoneb) Rt Susy 3 Ml Nebu INH 01/08/25 09:29 3 ml Q4HRRT ERIC Administration Dextrose 25 ml 12/08/24 06:40 Dextrose 50%-Water Inj 50 Ml Syringe IV 01/07/25 06:39 Q15MIN PRN BG 50-70 responsive npo pt Dextrose 50 ml 12/08/24 06:40 Dextrose 50%-Water Inj 50 Ml Syringe IV 01/07/25 06:39 Q15MIN PRN BG <50 OR BG <70 & pt unresponsive Fludrocortisone Acetate 0.1 mg 12/08/24 14:00 12/11/24 05:12 Fludrocortisone Acetate 0.1 Mg Tablet PO 01/07/25 13:59 0.1 mg TID ERIC Administration Glucagon 1 mg 12/08/24 06:40 Glucagon Inj 1 Mg Vial IM Q15MIN PRN BG <70, and no IV access Heparin Sodium (Porcine) 3,500 unit 12/09/24 12:53 12/09/24 16:02 Heparin Sod Inj 1000 Unit/Ml Vial 10 Ml INDWELLCAT 12/23/24 12:52 3,500 unit X1 PRN Administration DIALYSIS Piperacillin/Tazobactam/Dextrose 3.375 gm in 50 mls @ 12.5 mls/hr 12/08/24 21:00 12/10/24 20:41 Zosyn IV 12/15/24 20:59 12.5 mls/hr Q12HR ERIC Administration Albumin Human 12.5 gm in 50 mls @ 100 mls/hr 12/09/24 12:53 Albuminar-25 Ivpb IV 01/08/25 12:52 PRN PRN DIALYSIS Insulin Human Lispro 0 unit 12/09/24 07:30 12/11/24 09:39 Insulin Lispro (Admelog) 1 Unit/0.01 Ml Unit SC 01/08/25 07:29 Not Given AC [facility] Protocol Midodrine 10 mg 12/09/24 14:00 12/11/24 05:12 Midodrine 5 Mg Tablet PO 01/08/25 13:59 10 mg TID ERIC Administration Sennosides 1 tab 12/08/24 06:25 Senna Tablet PO 01/07/25 06:24 QDAY PRN constipation Protocol Plan Dmitry Gonzalez is a 64-year-old male with past medical history significant for end-stage renal disease Sunday following Dr. Chadwick, CRISTIANO on CPAP, hypertension, type 2 diabetes, gastric bypass, bilateral basal ganglia infarcts presented to the ED with hypoglycemia. Was updgraded to ICU for management of septic shock secondary to pneumonia. #AHRF 2/ B/L CAP Differential diagnosis: Aspiration pneumonia versus community-acquired pneumonia CT chest w/ contrast showed severe bilateral pneumonia Per EMS, patient was altered after choking on his emesis. Flu, RSV,and cocci negative -sputum cultures pending -Continue with IV zosyn 3.375 twice daily -Duonebs and mucomyst scheduled [id number] awake, and follow with chest physiotherapy after QD -daily attempts to wean down oxygen need #Septic shock (resolved)-2/2 CAP #Lactic acidosis-resolved Most likely due to community-acquired pneumonia versus aspiration pneumonia Met SIRS 4/4 and no improvement in blood pressure despite fluid resuscitation. Lactic acid peaked at 7.5 Less likely to be cardiogenic shock as cardiac index is well above 2.2 and good contractility, less likely to be obstructive shock as no right ventricular dilatation seen Echocardiogram showed normal LV size and wall thickness. Estimated EF 60% with trace mitral and trace tricuspid regurgitation Vanc was discontinued on 12/09/24 after MRSA nares negative -Continue IV Zosyn 3.375 BID -Urine cultures pending -Hold home antihypertensive medications lisinopril 40 daily, metolazone 2.5 mg daily, metoprolol succinate 100 mg twice daily, spironolactone 50 mg daily #Hx CRISTIANO Patient uses CPAP at night -Will continue with CPAP at night #Intractable nausea vomiting-resolved #Left abdominal pain #Hx Gastric bypass 2022 DDx: n/v may be due to gastric bypass, gastroparesis, esophageal thickening. Patient is only able to tolerate liquids with vomiting episodes after having solid foods. He is planning to follow-up with GI specialist and surgeon after admission. Has lost approximately 40 pounds over the past 2 months. Tenderness on palpation left abdomen. CT abdomen pelvis showed bilateral cystitis, distended bladder, hepatomegaly. Bilirubin and LFTs stable. CT chest showed thickening of the lateral wall of the esophagus, consider reflux esophagitis -f/u with EGD and outpatient GI consultation -Ondansetron as needed -Encourage oral intake #RUE nonocclusive thrombi Chest CT read a suspicious for clot in the right internal jugular vein Right Upper Extremity US showed positive for nonocclusive thrombus in the right internal jugular vein, right subclavian, axillary, cephalic, brachial veins Despite concern for thrombus, patient denies any pain or RUE swelling. Patient's recent AV fistula stopped working 2 weeks ago. Scheduled for replacement in [facility] in 2 weeks. He was resumed on hemodialysis sessions. Most recent session yesterday. -Dr. Chadwick was consulted and does not recommend patient to be on heparin drip -Will not remove dialysis catheter #End-stage renal disease on hemodialysis #Right nephrectomy Patient follows Dr. Chadwick outpatient, Sunday for dialysis sessions. -Patient received HD session today -Nephrology, Dr. Chadwick, consulted and appreciate further recs -Started patient on home Fludrocortisone 0.1 mg TID and Midodrine 10 mg TID per nephrology rec -will be placement of left AV fistula for dialysis #Hypokalemia-resovled #Hypomagnesemia -Replete electrolytes as necessary -Potassium greater than 4 ? Mag greater than 2 #Normocytic anemia Most likely in the setting of end-stage renal disease -Daily CBC #Hypoglycemia?resolved Patient presented with a blood sugar of 28 in the ED, and given amp of D50 as well as D10 drip #Type 2 diabetes on chronic insulin therapy-well controlled Patient takes NovoLog 5 units 3 times daily before meals as well as long-acting insulin, varies depending on patient's blood sugar level. Patient did take 20 units of Lantus last night. A1c 5.7. -Insulin sliding scale AC -Hypoglycemia protocol in place Health Maintenance: DVT prophylaxis: heparin subq Diet: Diabetic clear liquid diet Jeffery: No CODE STATUS: Full code Disposition: Septic shock resolved, telemetry, pneumonia mgmt. The patient's management plan was discussed with my attending physician Dr. Davis and senior Dr. Garcia. Elizabeth Koo, PGY-1 Attending Provider Attestation/Addendum Mikayla Chisholm, DO, attest that I was physically present for the lerma portions of the service and evaluated the patient with the resident and I reviewed and discussed the case with the resident and agree with the resident's findings and plans of care as documented above Patient seen and evaluated this AM. He remains on 30L/min and FiO2 40%. Patient was undergoing dialysis at time of evaluation. He states he is feeling better. No acute events overnight. Patient reports improvement with breathing treatments. Will continue with current management and titrate O2 as tolerated. Will have PT work with patient.
--- NOTE | 2024-12-11 10:01 | PC.NURSE ---
Patient taken to dialysis by ANALISA Styles @ [phone]
[2024-12-11] MEDS: HEPARIN SOD INJ 1000 UNIT/ML VIAL 10 ML 3500 UNIT INDWELLCAT (11:40)
[2024-12-11] MEDS: PIPER/TAZO 3.375 GM 3.375 GM/50 ML BAG IV ×2 (12:21→20:57)
[2024-12-11] MEDS: HEPARIN SOD INJ 5000 UNIT/ML VIAL SC ×2 (14:06→21:01)
[2024-12-11] MEDS: INSULIN LISPRO (AdmeLOG) 1 UNIT/0.01 ML UNIT SC (17:43)
[2024-12-12] VITALS (16 sets, daily range): BP systolic 122–167; BP diastolic 68–97; PULSE 86–107; RESP 18–27; TEMP 36.2–37.4; O2SAT 91–100; BMI 29.6
[2024-12-12] MEDS: NORTRIPTYLINE HCL 25 MG CAPSULE PO ×2 (00:31→21:57)
[2024-12-12] MEDS: ACETYLCYSTEINE RT SOL 10% 4 ML NEBU 3 ML INH ×5 (03:14→22:56)
[2024-12-12] MEDS: ALBUTEROL/IPRATROPIUM (Duoneb) RT SOL 3 ML NEBU INH ×5 (03:14→22:55)
[2024-12-12 05:40] LABS: Basophils # (Auto) 0.1 Thou/mm3 (0.0-0.2); Basophils % (Auto) 1 % (0-2.5); Eosinophils # (Auto) 0.2 Thou/mm3 (0.0-0.5); Eosinophils % (Auto) 3 % (0-10); Hematocrit 33.7 % (41.0-53.0); Hemoglobin 11.3 g/dL (13.5-16.0); Immature Granulocytes % (Auto) 1 % (0-0); Immature Granulocytes Auto 0.06 Thou/mm3 (0.00-0.00); Lymphocytes # (Auto) 1.4 Thou/mm3 (1.0-4.8); Lymphocytes % (Auto) 20 % (10-50); Mean Corpuscular HGB Conc 33.5 g/dl (31.0-37.0); Mean Corpuscular Hemoglobin 33.5 pg (25.0-35.0); Mean Corpuscular Volume 100 fL (80-100); Monocytes # (Auto) 0.5 Thou/mm3 (0.0-0.8); Monocytes % (Auto) 7 % (0-12); Neutrophils # (Auto) 4.8 Thou/mm3 (1.8-7.7); Neutrophils % (Auto) 68 % (37-80); Nucleated Red Blood Cell % 0 /100 WBC (0); Platelet Count 188 Thou/mm3 (140-440); RDW Standard Deviation 46.5 fL (35.1-43.9); Red Blood Count 3.37 Miln/mm3 (4.50-5.90)
[2024-12-12 05:59] LABS: Partial Thromboplastin Time 28.3 Seconds (22.0-36.0); Prothrombin Time 10.8 Seconds (9.0-12.2)
[2024-12-12] MEDS: ACETAMINOPHEN 325 MG TABLET 650 MG PO (06:02)
[2024-12-12] MEDS: MIDODRINE 5 MG TABLET 10 MG PO ×2 (06:03→21:56)
[2024-12-12] MEDS: FLUDROCORTISONE ACETATE 0.1 MG TABLET PO ×3 (06:03→21:57)
[2024-12-12] MEDS: HEPARIN SOD INJ 5000 UNIT/ML VIAL SC ×3 (06:09→21:57)
[2024-12-12 06:45] LABS: Alanine Aminotransferase < 7 U/L (10-49); Albumin, Serum 3.7 gm/dL (3.4-4.8); Albumin/Globulin Ratio 1.5 (1.2-2.2); Alkaline Phosphatase 126 U/L (46-116); Anion Gap 12 (7-16); Aspartate Amino Transferase 10 U/L (0-34); BUN/Creatinine Ratio 6 Ratio (12-20); Bilirubin,Total 0.3 mg/dL (0.3-1.2); Blood Urea Nitrogen 19 mg/dL (9-23); Calcium 9.4 mg/dL (8.3-10.6); Calcium (Corrected) 9.6 mg/dL (8.5-10.1); Chloride 100 mMol/L (98-107); Creatinine (Component) 3.1 mg/dL (0.6-1.3); Estimated Creatinine Clearance 27.2 mL/min (>60); Globulin 2.5 gm/dL (2.3-3.5); Glucose 130 mg/dL (74-106); Osmolality,Calculated 278 (275-295); Phosphorous 1.8 mg/dL (2.4-5.1); Potassium 3.2 mMol/L (3.4-5.1); Sodium 137 mMol/L (136-145); Total Protein 6.2 gm/dL (5.7-8.2); eGFR 22 See Note
[2024-12-12] MEDS: POTASSIUM CHLORIDE 20 mEq TABCR 40 MEQ PO (09:36)
[2024-12-12] MEDS: PIPER/TAZO 3.375 GM 3.375 GM/50 ML BAG IV ×2 (09:37→21:57)
[2024-12-12] MEDS: POTASSIUM CHLORIDE 20 mEq TABCR PO (10:47)
[2024-12-12] MEDS: INSULIN LISPRO (AdmeLOG) 1 UNIT/0.01 ML UNIT SC ×2 (11:31→17:10)
--- NOTE | 2024-12-12 12:27 | PCS.ST ---
Swallow Evaluation completed. See report for details. No dysphagia. Stable O2 with PO activity with solids. Dysphagia 3 diet.
--- NOTE | 2024-12-12 16:06 | ESPR_ITS ---
<Statement entered by Alison Garcia MD - 12/12/24 16:37> I discussed with and supervised my co-resident involved in the care of this patient. I agree with the assessment and plan as documented above. Patient seen and examined at bedside. On 4L NC, lung sounds improved on auscultation. Patient eager to go home. Regarding his pneumonia - Leukocytosis resolved. Will replete electrolytes. Will see how patient does with PT should patient need home O2. Anticipate discharge within the next 24-48 hours. Will advance diet as tolerated. Alison Garcia MD PGY-3 Documentation for date of: 12/12/24 Subjective Subjective Interval history: Patient seen and examined at bedside. No acute events overnight. Patient states he is feeling much better today. Oxygen requirements have improved. Currently on 4L satting 96%O2. Advance diet as tolerated pending speech eval. Leukocytosis improving 7.0 today, potassium 3.2. Repleted 40+20 mEq Titrate O2, continue Zosyn for pneumonia, DuoNeb, Mucomyst. Pressures are stable with fludrocortisone and midodrine. Anticipate discharge next 24 hrs if oxygen demand improving. PT recommends to get home health PT at time of discharge. Exam Vital Signs Temp Pulse Resp BP Pulse Ox O2 Del Method O2 Flow Rate 97.7 F 97 21 H 167/88 H 99 Nasal Cannula 5 12/12/24 12:00 12/12/24 14:39 12/12/24 14:36 12/12/24 14:39 12/12/24 14:36 12/12/24 12:00 12/12/24 14:36 FiO2 40 12/11/24 10:37 Narrative Exam General Appearance: Pt is a well-developed, male no acute distress HEENT: NC/AT, no scleral icterus, no conjunctival pallor, moist mucous membranes, no cervical adenopathy Chest: Right hemodialysis cath in place. No signs of erythema or or pus noted around site. Lungs: No assessory muscle use noted. Mild crackles b/l, on4L NC CVS: RRR, S1/S2 heard, no murmurs ABD: mild left side tenderness, normal BS, non distended Skin: bruising noted around right arm AV fistula, otherwise normal without any rashes, warm to touch, no peripheral edema Neuro: A&O x 3. No gross neurological deficits. Sensory grossly intact. Psych: Appropriate mood and affect. Objective Labs 12/13/24 07:29 12/13/24 07:29 Labs: Laboratory Results - last 24 hr 12/12/24 04:57 WBC 7.0 D RBC 3.37 L Hgb 11.3 L Hct 33.7 L MCV 100 MCH 33.5 MCHC 33.5 RDW Std Deviation 46.5 H Plt Count 188 Neut % (Auto) 68 Lymph % (Auto) 20 [place] % (Auto) 7 Eos % (Auto) 3 Baso % (Auto) 1 Neut # (Auto) 4.8 Lymph # (Auto) 1.4 [place] # (Auto) 0.5 Eos # (Auto) 0.2 Baso # (Auto) 0.1 Immature Gran # (Auto) 0.06 H Absolute Nucleated RBC 0.00 Immature Gran % 1 H Nucleated RBC % 0 PT 10.8 INR 1.0 APTT 28.3 Sodium 137 Potassium 3.2 L Chloride 100 Carbon Dioxide 25.0 Anion Gap 12 BUN 19 Creatinine 3.1 H D Estim Creat Clear Calc 27.2 L eGFR 22 L BUN/Creatinine Ratio 6 L Glucose 130 H Calculated Osmolality 278 Calcium 9.4 Corrected Calcium 9.6 Phosphorus 1.8 L Total Bilirubin 0.3 AST 10 ALT < 7 L Alkaline Phosphatase 126 H Total Protein 6.2 Albumin 3.7 Globulin 2.5 Albumin/Globulin Ratio 1.5 ABG Interpretation ABG results: 12/08/24 04:16 ABG pH 7.45 ABG pCO2 33 ABG pO2 69 L ABG HCO3 23 ABG O2 Saturation 94 ABG Base Excess 0 Quality Measures Quality Measures none Assessment & Plan Assessment Current Active Medications: Generic Name Dose Route Start Last Admin Trade Name Freq PRN Reason Stop Dose Admin Acetaminophen 650 mg 12/08/24 06:25 12/12/24 06:02 Acetaminophen 325 Mg Tablet PO 01/07/25 06:24 650 mg Q6H PRN Administration Fever >101.5 Acetaminophen 650 mg 12/12/24 06:17 Acetaminophen 325 Mg Tablet PO 01/11/25 06:16 Q6HR PRN PAIN 1-6 (mild-mod Acetylcysteine 3 ml 12/09/24 10:00 12/12/24 14:32 Acetylcysteine Rt Susy 10% 4 Ml Nebu INH 01/08/25 09:59 3 ml Q4HRRT ERIC Administration Albuterol/Ipratropium 3 ml 12/08/24 06:32 12/08/24 06:49 Albuterol/Ipratropium (Duoneb) Rt Susy 3 Ml Nebu INH 01/07/25 06:59 3 ml Q4HRRT PRN Administration SOB, Wheezing Albuterol/Ipratropium 3 ml 12/09/24 09:30 12/12/24 14:32 Albuterol/Ipratropium (Duoneb) Rt Susy 3 Ml Nebu INH 01/08/25 09:29 3 ml Q4HRRT ERIC Administration Dextrose 25 ml 12/08/24 06:40 Dextrose 50%-Water Inj 50 Ml Syringe IV 01/07/25 06:39 Q15MIN PRN BG 50-70 responsive npo pt Dextrose 50 ml 12/08/24 06:40 Dextrose 50%-Water Inj 50 Ml Syringe IV 01/07/25 06:39 Q15MIN PRN BG <50 OR BG <70 & pt unresponsive Fludrocortisone Acetate 0.1 mg 12/08/24 14:00 12/12/24 14:41 Fludrocortisone Acetate 0.1 Mg Tablet PO 01/07/25 13:59 0.1 mg TID ERIC Administration Glucagon 1 mg 12/08/24 06:40 Glucagon Inj 1 Mg Vial IM Q15MIN PRN BG <70, and no IV access Heparin Sodium (Porcine) 3,500 unit 12/09/24 12:53 12/11/24 11:40 Heparin Sod Inj 1000 Unit/Ml Vial 10 Ml INDWELLCAT 12/23/24 12:52 3,500 unit X1 PRN Administration DIALYSIS Heparin Sodium (Porcine) 5,000 unit 12/11/24 14:00 12/12/24 14:41 Heparin Sod Inj 5000 Unit/Ml Vial SC 12/25/24 13:59 5,000 unit Q8HR ERIC Administration Piperacillin/Tazobactam/Dextrose 3.375 gm in 50 mls @ 12.5 mls/hr 12/08/24 21:00 12/12/24 09:37 Zosyn IV 12/15/24 20:59 12.5 mls/hr Q12HR ERIC Administration Albumin Human 12.5 gm in 50 mls @ 100 mls/hr 12/09/24 12:53 Albuminar-25 Ivpb IV 01/08/25 12:52 PRN PRN DIALYSIS Insulin Human Lispro 0 unit 12/09/24 07:30 12/12/24 11:31 Insulin Lispro (Admelog) 1 Unit/0.01 Ml Unit SC 01/08/25 07:29 4 unit AC ERIC Administration Protocol Midodrine 10 mg 12/09/24 14:00 12/12/24 14:39 Midodrine 5 Mg Tablet PO 01/08/25 13:59 Not Given TID ERIC Nortriptyline HCl 25 mg 12/12/24 21:00 Nortriptyline Hcl 25 Mg Capsule PO 01/11/25 20:59 HS ERIC Sennosides 1 tab 12/08/24 06:25 Senna Tablet PO 01/07/25 06:24 QDAY PRN constipation Protocol Plan Dmitry Gonzalez is a 64-year-old male with past medical history significant for end-stage renal disease Sunday following Dr. Chadwick, CRISTIANO on CPAP, hypertension, type 2 diabetes, gastric bypass, bilateral basal ganglia infarcts presented to the ED with hypoglycemia. Was updgraded to ICU for management of septic shock secondary to pneumonia. #AHRF 2/2 B/L CAP Differential diagnosis: Aspiration pneumonia versus community-acquired pneumonia CT chest w/ contrast showed severe bilateral pneumonia Per EMS, patient was altered after choking on his emesis. Flu, RSV,and cocci negative -sputum cultures pending -Continue with IV zosyn 3.375 twice daily -Duonebs and mucomyst scheduled [id number] awake, and follow with chest physiotherapy after QD -daily attempts to wean down oxygen need #Septic shock (resolved)-2/2 CAP #Lactic acidosis-resolved Most likely due to community-acquired pneumonia versus aspiration pneumonia Met SIRS 4/4 and no improvement in blood pressure despite fluid resuscitation. Lactic acid peaked at 7.5 Less likely to be cardiogenic shock as cardiac index is well above 2.2 and good contractility, less likely to be obstructive shock as no right ventricular dilatation seen Echocardiogram showed normal LV size and wall thickness. Estimated EF 60% with trace mitral and trace tricuspid regurgitation Vanc was discontinued on 12/09/24 after MRSA nares negative -Continue IV Zosyn 3.375 BID -Urine cultures pending -restart MP xL 50 mg daily #Hx CRISTIANO Patient uses CPAP at night -Will continue with CPAP at night #Intractable nausea vomiting-resolved #Left abdominal pain #Hx Gastric bypass 2022 DDx: n/v may be due to gastric bypass, gastroparesis, esophageal thickening. Patient is only able to tolerate liquids with vomiting episodes after having solid foods. He is planning to follow-up with GI specialist and surgeon after admission. Has lost approximately 40 pounds over the past 2 months. Tenderness on palpation left abdomen. CT abdomen pelvis showed bilateral cystitis, distended bladder, hepatomegaly. Bilirubin and LFTs stable. CT chest showed thickening of the lateral wall of the esophagus, consider reflux esophagitis -f/u with EGD and outpatient GI consultation -Ondansetron as needed -Encourage oral intake #RUE nonocclusive thrombi Chest CT read a suspicious for clot in the right internal jugular vein Right Upper Extremity US showed positive for nonocclusive thrombus in the right internal jugular vein, right subclavian, axillary, cephalic, brachial veins Despite concern for thrombus, patient denies any pain or RUE swelling. Patient's recent AV fistula stopped working 2 weeks ago. Scheduled for replacement in [facility] in 2 weeks. He was resumed on hemodialysis sessions. Most recent session yesterday. -Dr. Chadwick was consulted and does not recommend patient to be on heparin drip -Will not remove dialysis catheter #End-stage renal disease on hemodialysis #Right nephrectomy Patient follows Dr. Chadwick outpatient, Sunday for dialysis sessions. -Patient received HD session today -Nephrology, Dr. Chadwick, consulted and appreciate further recs -Started patient on home Fludrocortisone 0.1 mg TID and Midodrine 10 mg TID per nephrology rec -will be placement of left AV fistula for dialysis #Hypokalemia-resovled #Hypomagnesemia -Replete electrolytes as necessary -Potassium greater than 4 ? Mag greater than 2 #Normocytic anemia Most likely in the setting of end-stage renal disease -Daily CBC #Hypoglycemia?resolved Patient presented with a blood sugar of 28 in the ED, and given amp of D50 as well as D10 drip #Type 2 diabetes on chronic insulin therapy-well controlled Patient takes NovoLog 5 units 3 times daily before meals as well as long-acting insulin, varies depending on patient's blood sugar level. Patient did take 20 units of Lantus last night. A1c 5.7. -Insulin sliding scale AC -Hypoglycemia protocol in place Health Maintenance: DVT prophylaxis: heparin subq Diet: Diabetic clear liquid diet Jeffery: No CODE STATUS: Full code Disposition: Septic shock resolved, telemetry, pneumonia mgmt. The patient's management plan was discussed with my attending physician Dr. Davis and senior Dr. Garcia. Elizabeth Koo, PGY-1 Attending Provider Attestation/Addendum IMikayla, , attest that I was physically present for the lerma portions of the service and evaluated the patient with the resident and I reviewed and discussed the case with the resident and agree with the resident's findings and plans of care as documented above Pt seen and evaluated this AM. He states he is feeling well. He is currently on 4L/NC. Will titrate to 2L/nC and if able to maintain 2-3L/NC, can likely be discharged within next 24hrs. Will continue with current management. Will arrange for [facility] for PT.
[2024-12-12] MEDS: METOPROLOL SUCCINATE XL 25 MG TABCR 50 MG PO (17:06)
--- NOTE | 2024-12-12 18:35 | PC.NURSE ---
Dr Chadwick in to see and assess patient
[2024-12-13] VITALS (27 sets, daily range): BP systolic 124–176; BP diastolic 53–89; PULSE 85–107; RESP 13–26; TEMP 36–36.9; O2SAT 89–99; BMI 29.0
[2024-12-13] MEDS: ACETYLCYSTEINE RT SOL 10% 4 ML NEBU 3 ML INH ×4 (02:50→15:01)
[2024-12-13] MEDS: ALBUTEROL/IPRATROPIUM (Duoneb) RT SOL 3 ML NEBU INH ×4 (02:50→15:01)
[2024-12-13] MEDS: MIDODRINE 5 MG TABLET 10 MG PO ×2 (05:57→13:48)
[2024-12-13] MEDS: FLUDROCORTISONE ACETATE 0.1 MG TABLET PO ×2 (05:57→13:49)
[2024-12-13] MEDS: HEPARIN SOD INJ 5000 UNIT/ML VIAL SC ×2 (05:57→13:49)
--- NOTE | 2024-12-13 06:00 | XR_ITS ---
Examination: PA lateral chest 2 views Technique: Upright PA lateral chest 2 views Exam date and time: December 2024 0639 hrs. Comparison December 10, 2024 Indications: Shortness of breath today. Findings: Bilateral pneumonia, improved in the left lung compared to December 10, 2024 Right internal jugular dialysis catheter satisfactory position Normal heart size Cervical pulmonary vasculature is mildly prominent Impression: Bilateral pneumonia, improved in left lung compared to December 10, 2004
--- NOTE | 2024-12-13 07:30 | PC.NURSE ---
Pt was taken to dialysis at this time
[2024-12-13 08:31] LABS: Basophils # (Auto) 0.1 Thou/mm3 (0.0-0.2); Basophils % (Auto) 1 % (0-2.5); Eosinophils # (Auto) 0.5 Thou/mm3 (0.0-0.5); Eosinophils % (Auto) 5 % (0-10); Hematocrit 33.8 % (41.0-53.0); Hemoglobin 11.2 g/dL (13.5-16.0); Immature Granulocytes % (Auto) 1 % (0-0); Immature Granulocytes Auto 0.15 Thou/mm3 (0.00-0.00); Lymphocytes # (Auto) 2.1 Thou/mm3 (1.0-4.8); Lymphocytes % (Auto) 20 % (10-50); Mean Corpuscular HGB Conc 33.1 g/dl (31.0-37.0); Mean Corpuscular Hemoglobin 32.9 pg (25.0-35.0); Mean Corpuscular Volume 99 fL (80-100); Monocytes % (Auto) 10 % (0-12); Neutrophils # (Auto) 6.8 Thou/mm3 (1.8-7.7); Neutrophils % (Auto) 64 % (37-80); Nucleated Red Blood Cell % 0 /100 WBC (0); Platelet Count 199 Thou/mm3 (140-440); RDW Standard Deviation 45.6 fL (35.1-43.9); White Blood Count 10.7 Thou/mm3 (3.8-10.6)
[2024-12-13 08:43] LABS: Alanine Aminotransferase < 7 U/L (10-49); Albumin, Serum 3.6 gm/dL (3.4-4.8); Albumin/Globulin Ratio 1.4 (1.2-2.2); Alkaline Phosphatase 120 U/L (46-116); Anion Gap 12 (7-16); Aspartate Amino Transferase < 8 U/L (0-34); BUN/Creatinine Ratio 7 Ratio (12-20); Bilirubin,Total 0.4 mg/dL (0.3-1.2); Blood Urea Nitrogen 25 mg/dL (9-23); Calcium 9.9 mg/dL (8.3-10.6); Calcium (Corrected) 10.2 mg/dL (8.5-10.1); Carbon Dioxide 24.3 mMol/L (20.0-31.0); Chloride 101 mMol/L (98-107); Creatinine (Component) 3.6 mg/dL (0.6-1.3); Estimated Creatinine Clearance 22.8 mL/min (>60); Globulin 2.5 gm/dL (2.3-3.5); Glucose 135 mg/dL (74-106); Osmolality,Calculated 280 (275-295); Phosphorous 2.2 mg/dL (2.4-5.1); Potassium 3.9 mMol/L (3.4-5.1); Sodium 137 mMol/L (136-145); Total Protein 6.1 gm/dL (5.7-8.2); eGFR 18 See Note
[2024-12-13] MEDS: HEPARIN SOD INJ 1000 UNIT/ML VIAL 10 ML 3500 UNIT INDWELLCAT (12:15)
[2024-12-13] MEDS: METOPROLOL SUCCINATE XL 25 MG TABCR 50 MG PO (12:24)
[2024-12-13] MEDS: PIPER/TAZO 3.375 GM 3.375 GM/50 ML BAG IV (12:24)
--- NOTE | 2024-12-13 14:28 | PC.SS ---
Addendum entered by Mojgan Mack 12/13/24 15:01: Contacted [facility] to confirm oxygen use. RN stated patient is not needing oxygen and has been on room air for almost 3 hours. DME oxygen order cancelled. Original Note: To secure a safe discharge for the patient home oxygen is needed. The patient is mobile within the home and will need continuous, portable O2 via nasal cannula. Patient is discharged in a chronic stable state and has been treated optimally and has other respiratory needs. Oxygen has been ordered due to acute hypoxic respiratory failure.
--- NOTE | 2024-12-13 14:33 | PD.RESPRO ---
Documentation for date of: 12/13/24 Subjective Subjective Interval history: Patient seen and examined at bedside during dialysis session. Vitals are stable Exam Vital Signs Temp Pulse Resp BP Pulse Ox O2 Del Method O2 Flow Rate 98.4 F 98 23 H 133/76 H 98 Nasal Cannula 2 12/13/24 12:00 12/13/24 13:48 12/13/24 12:00 12/13/24 13:48 12/13/24 12:00 12/13/24 12:00 12/13/24 12:00 FiO2 40 12/11/24 10:37 Objective Labs 12/13/24 07:29 12/13/24 07:29 Labs: Laboratory Results - last 24 hr 12/13/24 07:29 WBC 10.7 H D RBC 3.40 L Hgb 11.2 L Hct 33.8 L MCV 99 MCH 32.9 MCHC 33.1 RDW Std Deviation 45.6 H Plt Count 199 Neut % (Auto) 64 Lymph % (Auto) 20 [place] % (Auto) 10 Eos % (Auto) 5 Baso % (Auto) 1 Neut # (Auto) 6.8 Lymph # (Auto) 2.1 [place] # (Auto) 1.0 H Eos # (Auto) 0.5 Baso # (Auto) 0.1 Immature Gran # (Auto) 0.15 H Absolute Nucleated RBC 0.00 Immature Gran % 1 H Nucleated RBC % 0 Sodium 137 Potassium 3.9 D Chloride 101 Carbon Dioxide 24.3 Anion Gap 12 BUN 25 H Creatinine 3.6 H D Estim Creat Clear Calc 22.8 L eGFR 18 L BUN/Creatinine Ratio 7 L Glucose 135 H Calculated Osmolality 280 Calcium 9.9 Corrected Calcium 10.2 H Phosphorus 2.2 L Total Bilirubin 0.4 AST < 8 ALT < 7 L Alkaline Phosphatase 120 H Total Protein 6.1 Albumin 3.6 Globulin 2.5 Albumin/Globulin Ratio 1.4 ABG Interpretation ABG results: 12/08/24 04:16 ABG pH 7.45 ABG pCO2 33 ABG pO2 69 L ABG HCO3 23 ABG O2 Saturation 94 ABG Base Excess 0 Quality Measures Quality Measures none Assessment & Plan Assessment Current Active Medications: Generic Name Dose Route Start Last Admin Trade Name Freq PRN Reason Stop Dose Admin Acetaminophen 650 mg 12/08/24 06:25 12/12/24 06:02 Acetaminophen 325 Mg Tablet PO 01/07/25 06:24 650 mg Q6H PRN Administration Fever >101.5 Acetaminophen 650 mg 12/12/24 06:17 Acetaminophen 325 Mg Tablet PO 01/11/25 06:16 Q6HR PRN PAIN 1-6 (mild-mod Acetylcysteine 3 ml 12/09/24 10:00 12/13/24 11:15 Acetylcysteine Rt Susy 10% 4 Ml Nebu INH 01/08/25 09:59 3 ml Q4HRRT ERIC Administration Albuterol/Ipratropium 3 ml 12/08/24 06:32 12/08/24 06:49 Albuterol/Ipratropium (Duoneb) Rt Susy 3 Ml Nebu INH 01/07/25 06:59 3 ml Q4HRRT PRN Administration SOB, Wheezing Albuterol/Ipratropium 3 ml 12/09/24 09:30 12/13/24 11:15 Albuterol/Ipratropium (Duoneb) Rt Susy 3 Ml Nebu INH 01/08/25 09:29 3 ml Q4HRRT ERIC Administration Dextrose 25 ml 12/08/24 06:40 Dextrose 50%-Water Inj 50 Ml Syringe IV 01/07/25 06:39 Q15MIN PRN BG 50-70 responsive npo pt Dextrose 50 ml 12/08/24 06:40 Dextrose 50%-Water Inj 50 Ml Syringe IV 01/07/25 06:39 Q15MIN PRN BG <50 OR BG <70 & pt unresponsive Fludrocortisone Acetate 0.1 mg 12/08/24 14:00 12/13/24 13:49 Fludrocortisone Acetate 0.1 Mg Tablet PO 01/07/25 13:59 0.1 mg TID ERIC Administration Glucagon 1 mg 12/08/24 06:40 Glucagon Inj 1 Mg Vial IM Q15MIN PRN BG <70, and no IV access Heparin Sodium (Porcine) 3,500 unit 12/09/24 12:53 12/13/24 12:15 Heparin Sod Inj 1000 Unit/Ml Vial 10 Ml INDWELLCAT 12/23/24 12:52 3,500 unit X1 PRN Administration DIALYSIS Heparin Sodium (Porcine) 5,000 unit 12/11/24 14:00 12/13/24 13:49 Heparin Sod Inj 5000 Unit/Ml Vial SC 12/25/24 13:59 5,000 unit Q8HR ERIC Administration Piperacillin/Tazobactam/Dextrose 3.375 gm in 50 mls @ 12.5 mls/hr 12/08/24 21:00 12/13/24 12:24 Zosyn IV 12/15/24 20:59 12.5 mls/hr Q12HR EIRC Administration Albumin Human 12.5 gm in 50 mls @ 100 mls/hr 12/09/24 12:53 Albuminar-25 Ivpb IV 01/08/25 12:52 PRN PRN DIALYSIS Insulin Human Lispro 0 unit 12/09/24 07:30 12/13/24 12:26 Insulin Lispro (Admelog) 1 Unit/0.01 Ml Unit SC 01/08/25 07:29 Not Given AC ERIC Protocol Metoprolol Succinate 50 mg 12/12/24 16:45 12/13/24 12:24 Metoprolol Succinate Xl 25 Mg Tabcr PO 01/11/25 16:44 50 mg QDAY ERIC Administration Midodrine 10 mg 12/12/24 16:30 12/13/24 13:48 Midodrine 5 Mg Tablet PO 01/08/25 13:59 10 mg TID ERIC Administration Nortriptyline HCl 25 mg 12/12/24 21:00 12/12/24 21:57 Nortriptyline Hcl 25 Mg Capsule PO 01/11/25 20:59 25 mg HS ERIC Administration Sennosides 1 tab 12/08/24 06:25 Senna Tablet PO 01/07/25 06:24 QDAY PRN constipation Protocol
--- NOTE | 2024-12-13 14:36 | ESDS_ITS ---
<Statement entered by Mikayla Davis DO - 12/14/24 10:59> I, Mikayla Davis DO, attest that I was physically present for the lerma portions of the service and evaluated the patient with the resident and I reviewed and discussed the case with the resident and agree with the resident's findings and plans of care as documented above Planned Discharge Date 12/13/24 DS: Providers Provider Date of admission: 12/08/24 06:25 Primary care physician: Sunil Chadwick MD Admitting Provider: Rae Conte MD Attending Provider on Admission: Mikayla Davis DO Consults: 12/08/24 06:32 Referral Pharmacy Stat Comment: Reason for Consult: ESRD, Medicine Dosing 12/08/24 06:50 Consult to [facility] Stat Comment: Severe Sepsis Consulting Provider: Yomaira Root 12/09/24 09:27 Referral Physical Therapy Stat Comment: Physician Instructions: 12/09/24 16:32 Consult to Nephrology Stat Comment: Consulting Provider: Sunil Chadwick 12/12/24 10:31 Referral Speech Therapy Routine Comment: Instructions: AHRF 2/2 aspiration PNA, oxygen demands improving Attending Provider on DC: Elizabeth Koo MD Discharging Provider: Elizabeth Koo MD DS: Diagnosis Problem List Completed Was Problem List Reviewed/Reconciled?: Yes Hospital Course Hospital Course Hospital course: Reason for hospitalization: AHRF 2/2 bilateral HAP Dmitry Gonzalez is 64 yr male with PMH of 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 He was admitted for severe sepsis and acute hypoxic respiratory failure secondary to bilateral pneumonia. Patient was upgraded to ICU for pressors and started on BiPAP. MAP improved and was downgraded to floors the next day. Breakfast Manager Dr. Chadwick was consulted after right upper extremity u/s showed extensive nonocclusive thrombus in the right internal jugular vein, right subclavian, axillary, cephalic, brachial veins. Patient was not started on any anticoagulants. Nephrology stated that the thrombus is due to the clotted AV fistula. A new AV fistula will be placed in left arm in next 1-2 weeks. Patient continued his dialysis sessions during hospitalization via cathater. There was difficulty in advancing his diet because of intractable vomiting after consuming solid foods. Patient is planning to follow-up with GI/surgeon who did bypass surgery. He completed 5 days of Zosyn and will be discharged with Augmentin for 2 days to complete 7-day course. Sputum cultures were unobtainable. Oxygen requirements did improve. Patient was on 2L nasal cannula saturating 97% before discharge. Blood sugars remained well-controlled during hospitalization. Referral was placed for physical therapy who stated that patient would benefit for home health PT. Patient is now in stable condition and ready for discharge. Recommendations were given as below. Discharge Recommendations: Please follow up with PCP and nephrology within 1 week of discharge Continue previous home medications except for: Isosorbide [id number] mg, lisinopril 40 Mg, metolazone 2.5 Mg, metoprolol succinate 100 mg, spironolactone 50 Mg, ursodiol 300 Mg until you have seen PCP. Continue amoxicillin?clavulanate to 50 mg daily for 2 more days for treatment of pneumonia. Use albuterol inhaler as needed difficulty breathing Continue fludrocortisone 0.1 mg 3 times daily and metoprolol succinate 25 mg daily Return to ED if symptoms worsening such as cough, fever, shortness of breath. Hospital Diagnoses: #AHRF 2/2 B/L CAP #Septic shock (resolved)-2/2 CAP #Lactic acidosis-resolved #Hx CRISTIANO #Intractable nausea vomiting-resolved #Left abdominal pain #Hx Gastric bypass 2022 #RUE nonocclusive thrombi #End-stage renal disease on hemodialysis #Right nephrectomy #Hypokalemia, resolved #Hypomagnesemia, resolved #Normocytic anemia #Hypoglycemia?resolved #Type 2 diabetes on chronic insulin therapy-well controlled The patient's management plan was discussed with my attending physician Dr. Davis. Elizabeth Koo MD, PGY-1 Time Spent with Patient Time attestation: Total time spent providing and/or coordinating discharge services: Time spent: Greater than 30 minutes Exam Vital Signs Temp Pulse Resp BP Pulse Ox O2 Del Method O2 Flow Rate 98.4 F 98 23 H 133/76 H 98 Nasal Cannula 2 12/13/24 12:00 12/13/24 13:48 12/13/24 12:00 12/13/24 13:48 12/13/24 12:00 12/13/24 12:00 12/13/24 12:00 FiO2 40 12/11/24 10:37 Narrative Exam General Appearance: Pt is a well-developed, male no acute distress HEENT: NC/AT, no scleral icterus, no conjunctival pallor, moist mucous membranes, no cervical adenopathy Chest: Right hemodialysis cath in place. No signs of erythema or or pus noted around site. Lungs: No assessory muscle use noted. No wheezing or crackles, on 2L NC CVS: RRR, S1/S2 heard, no murmurs ABD: mild left side tenderness, normal BS, non distended Skin: bruising noted around right arm AV fistula, otherwise normal without any rashes, warm to touch, no peripheral edema, right dialysis cath in place Neuro: A&O x 3. No gross neurological deficits. Sensory grossly intact. Psych: Appropriate mood and affect. Discharge Plan Plan Patient Disposition: Home w/HOME HEALTH Patient condition on transfer: Stable Prescriptions/Referrals Prescriptions/Med Rec: New amoxicillin-pot clavulanate 250-125 mg tablet 1 tab PO QDAY Qty: 3 0RF fludrocortisone 0.1 mg Tablet 0.1 mg PO TID 7 Days Qty: 21 0RF metoprolol succinate 25 mg Tablet Extended Release 24 Hr 50 mg PO QDAY 30 Days Qty: 60 0RF albuterol sulfate 90 mcg/actuation HFA aerosol inhaler 2 puff inhalation Q6H PRN (Reason: shortness of breath or wheezing) Qty: 6.7 0RF Continued nortriptyline 25 mg capsule 25 mg PO HS cholecalciferol (vitamin D3) [Vitamin D3] 2,000 UNIT capsule 2,000 unit PO QDAY Qty: 0 vitamin B complex Tablet 1 tab PO QDAY hydroxyzine HCl 10 mg tablet 10 mg PO QPM Patient Comments: TAKE 1 TABLET BY MOUTH NIGHTLY midodrine 10 mg Tablet 10 mg PO TID Rx Instructions: do not give last dose of day after 6PM or within 4 hrs of bedtime insulin aspart U-100 [Novolog FlexPen U-100 Insulin] 100 unit/mL (3 mL) insulin pen 5 unit SUBCUT TID Patient Comments: INJECT 5 UNIT SUBCUTANEOUSLY 3 TIMES A DAY BEFORE MEALS sevelamer carbonate 800 mg tablet 800 mg PO .with meals Patient Comments: TAKE 3 TABLETS BY MOUTH 3 TIMES A DAY WITH MEALS Discontinued spironolactone 50 mg tablet 50 mg PO QDAY metolazone 2.5 mg tablet 2.5 mg PO QDAY isosorbide mononitrate 30 mg tablet extended release 24 hr 30 mg PO QDAY metoprolol succinate 100 mg tablet extended release 24 hr 100 mg PO BID Patient Comments: TAKE 1 TABLET BY MOUTH TWICE DAILY ursodiol 300 mg capsule 300 mg PO BID lisinopril 40 mg tablet 40 mg PO BID Referrals: Sunil Chadwick MD [Primary Care Provider] - Patient/Caregiver Discharge Instructions Other Discharge Activity Instructions:: Please follow up with PCP and nephrology within 1 week of discharge Continue previous home medications except for: Isosorbide [id number] mg, lisinopril 40 Mg, metolazone 2.5 Mg, metoprolol succinate 100 mg, spironolactone 50 Mg, ursodiol 300 Mg until you have seen PCP. Continue amoxicillin?clavulanate to 50 mg daily for 2 more days for treatment of pneumonia. Use albuterol inhaler as needed difficulty breathing Continue fludrocortisone 0.1 mg 3 times daily and metoprolol succinate 25 mg daily Return to ED if symptoms worsening such as cough, fever, shortness of breath. Education Materials: ED Pneumonia (Adult) Print Language: [place] Stand Alone Forms: [facility] Award Info., Patient Portal Info Letter Discharge Order Discharge Orders: Discharge (Routine); Ordered 12/13/24 Ordered By: Mikayla Davis Quality Discharge Quality Measures VTE prophylaxis
--- NOTE | 2024-12-14 10:16 | PC.CC ---
Addendum entered by Yoni Spence RN 12/14/24 10:30: [facility] accepted the pt. Booked [facility]. Pending start of care date. Original Note: No documentation from [facility] on pt preference for HH agency. HH referral sent on [facility]. Awaiting responses. Pending start of care date.
--- NOTE | 2024-12-15 10:19 | ESCONSULT_ITS ---
RE: TA STONE : 1960 DATE OF CONSULTATION: 12/12/2024 HISTORY OF PRESENT ILLNESS: This is a 64-year-old male whom I have been following for many years. He is a patient of [facility] in [place]. He is on hemodialysis. The patient was seen in the [facility] on 12/05/2024 and he was fully alert and oriented, except forgetful. He is diabetic and he uses insulin. The patient was admitted to [facility] on 12/08/2024 after he was rushed to the emergency room by ambulance, because of altered mental status, because of severe hypoglycemia down to around 25. The patient when I saw him today is fully alert and oriented, is reading a book. PAST MEDICAL HISTORY: 1. Status post right nephrectomy on 03/25/2021. 2. End-stage renal disease, on hemodialysis. 3. Long history of diabetes mellitus. 4. Hypertension, but lately in the last few months it became orthostatic hypotension, and we put the patient on both midodrine and Florinef to stabilize the blood pressure. 5. Hyperlipidemia. 6. Obstructive sleep apnea, using CPAP. 7. Benign prostatic hypertrophy. 8. Status post gastroplasty in 2022. The patient lost after the operation around 100 pounds. He was in the maximum dose of 5 blood pressure medications, but with the weight loss and the development of orthostatic hypotension, we stopped all the antihypertensive, only he is getting metoprolol ER 50 mg twice a day for coronary artery disease and to avoid severe tachycardia. The patient has been off all diuretics, so off spironolactone that was 50 mg by 0.5 daily, and off metolazone and off furosemide. He was getting very high doses of diuretics, but all was stopped and as I said, he was on the maximum doses of clonidine, lisinopril, terazosin, hydralazine, minoxidil, and amlodipine, but all this has been stopped except metoprolol low dose for coronary artery disease and tachycardia. SOCIAL SITUATION: The patient used to be fully alert and oriented, but for sure lately he is becoming real forgetful to the extreme that he underwent thrombolysis trial of his AV fistula and this was tried maybe 3 times and he does not remember. He was given a request for sonogram and it was explained to him fully and he does not remember. He looks alert, oriented, as I said, reading a book, but the real problem is he getting forgetful. He does not have the best insight regarding his medication or medical problems. His sister used to come with him to every visit and really to help him, but lately she is busy and he is on his own. problem for hemodialysis. He used to have right upper arm AV fistula, but it clotted and they tried very hard at [facility] to do thrombolysis, but after 3 trials, they gave up and the plan was to put an AV fistula in the left forearm. They put a tunneled catheter for hemodialysis and it will be used for the time being. HOME MEDICATIONS: Fludrocortisone 0.1 mg t.i.d., midodrine 10 mg t.i.d., metoprolol ER 50 mg b.i.d. for coronary artery disease and tachycardia and not really for hypertension, sevelamer carbonate 800 mg by 3 tablets 3 times a day with meals, atorvastatin 80 mg at bedtime, tamsulosin 0.4 mg at bedtime, hydroxyzine 10 mg at bedtime, nortriptyline 25 mg daily, isosorbide ER 30 mg daily, vitamin D3 [id number] depending on what the patient chooses between 2000 and 5000 units a day. After his gastroplasty, he was on ursodiol 300 mg b.i.d. and then 300 mg daily, but not lately. Super B complex one daily. A few years ago by Dr. Olmos, his steam station supervisor in [place], on aspirin 81 mg daily and clopidogrel 75 mg daily. Regarding diabetes, he is using NovoLog 10 mg once a day or twice a day, and Lantus varying dose between 10 to 15 units in the morning. The patient used to be before on insulin pump but not anymore and he used to be on Trulicity, but when he lost his weight, he is not using it. His water sponger is Dr. Dominguez in [place]. CONSULTANTS: Dr. Chadwick of nephrology, Dr. Gomez of vascular surgery, Dr. Olmos of cardiology in [place], and Dr. Mcconnell for obstructive sleep apnea, and he is on CPAP in [place], and the surgeon for the gastroplasty is Dr. Ronny Garcia in [facility] and the surgery was on . PHYSICAL EXAMINATION: GENERAL: The patient is fully alert and oriented. He is needing high-flow oxygen and his saturation is 95, but without oxygen his saturation goes down. No fever. VITAL SIGNS: Blood pressure is stable around 130/70 on midodrine and Florinef. LUNGS: Few bilateral crackles at the bases. HEART: Regular. ABDOMEN: Soft. EXTREMITIES: No edema whatsoever. LABORATORY DATA: Labs when the patient was admitted, he had leukocytosis of 14.5 thousand. Hemoglobin was above 12. IMPRESSION AND PLAN: 1. Status post hypoglycemia with altered mental status that is resolved. The patient lately has been forgetful and he told me he took 20 units of insulin and this was much higher than his usual dose and we know this led to the hypoglycemia. I think the patient will need a lot of retraining how to take care of his diabetes, but I think the main problem is he is becoming more forgetful with little family support. Part of the hypoglycemia and orthostatic hypotension is extreme weight loss. 2. End-stage renal disease, on hemodialysis. 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 The patient is exposed to heparin during hemodialysis and we can increase the dose. The thrombus is chronic and I am weary of putting him on Coumadin or a direct oral anticoagulant, but we will discuss this with his vascular surgeon, Dr. Gomez, after discharge. Again, the patient really always confused about his medication. So if we will use chronic anticoagulation, it should be oral direct anticoagulation, although I doubt his insurance will cover. 3. Orthostatic hypotension. Continue with Florinef 0.1 mg t.i.d., and midodrine 10 mg t.i.d. We are continuing only with metoprolol ER 50 mg b.i.d. for the coronaries, and because he has tachycardia, we may decrease to 25 mg b.i.d. 4. In the last 2 or 3 months, the patient is complaining of abdominal pain. It is around the umbilicus, sometimes infraumbilical, sometimes supraumbilical, sometimes on the right upper quadrant. Radiological studies during this admission showed some distention of the gallbladder and gallbladder disease is very prevalent and it happened like a mass after gastroplasty, so the patient will need a GI home energy consultant because lately he was not able to eat. He will say if he eats, he will have severe nausea and about to vomit with severe pain. I doubt this is due to gastroparesis because of the diabetes. He was given omeprazole and ondansetron ODT high dose up to 8 mg q.i.d. 5. Obstructive sleep apnea and continue with CPAP. 6. Benign prostatic hypertrophy and continue with tamsulosin. I see the patient because of his forgetfulness in the [facility] nearly every 2 weeks. I insist he bring his bottles, but every time there is still confusion about his bottles and I rearranged all of them again and again. I think the patient will do more than fine. His main problem now is hypoxemia. The chest CAT scan and the x-rays show a lot of infiltrates and consolidation in both lungs, especially the left base and may the patient had aspiration at the time of the severe hypoglycemia. As I said, on 12/05/2024, the patient was walking. I saw him in the clinic and he was walking normally with no shortness of breath. His lungs were clear. cc: Barron Mcconnell MD MD Adarsh Dejesus FNP DT: 07:57:43 TT: 13:38:00 Ref: [id number] - TID: [id number]
== END 2024-12-13 18:11 | disposition home health service (06) | DRG 871 ==
LOC: SERX 12-08 05:12 → SERHOLD 12-08 07:19 → S2SX 12-09 06:12 → S2NX 12-09 20:20
PROVIDERS: Internal Medicine; Student in an Organized Health Care Education/Training Program; Admitting Provider Student in an Organized Health Care Education/Training Program; Emergency Provider Emergency Medicine; PCP Internal Medicine Nephrology; Visit Provider Internal Medicine
DX: A41.9 Sepsis, unspecified organism (principal); J18.9 Pneumonia, unspecified organism; J96.01 Acute respiratory failure with hypoxia; N18.6 End stage renal disease; J69.0 Pneumonitis due to inhalation of food and vomit; R65.21 Severe sepsis with septic shock; I12.0 Hypertensive chronic kidney disease with stage 5 chronic kidney disease or end stage renal disease; T82.818A Embolism due to vascular prosthetic devices, implants and grafts, initial encounter; E87.20 Acidosis, unspecified; E87.1 Hypo-osmolality and hyponatremia; I82.C11 Acute embolism and thrombosis of right internal jugular vein; K21.9 Gastro-esophageal reflux disease without esophagitis; E83.42 Hypomagnesemia; E87.6 Hypokalemia; N40.0 Benign prostatic hyperplasia without lower urinary tract symptoms; G47.33 Obstructive sleep apnea (adult) (pediatric); D63.1 Anemia in chronic kidney disease; E11.22 Type 2 diabetes mellitus with diabetic chronic kidney disease; E11.649 Type 2 diabetes mellitus with hypoglycemia without coma; K82.8 Other specified diseases of gallbladder; R10.9 Unspecified abdominal pain; I95.1 Orthostatic hypotension; Y83.2 Surgical operation with anastomosis, bypass or graft as the cause of abnormal reaction of the patient, or of later complication, without mention of misadventure at the time of the procedure; Z98.84 Bariatric surgery status; Z79.4 Long term (current) use of insulin; Z90.5 Acquired absence of kidney; Z99.81 Dependence on supplemental oxygen; Z99.2 Dependence on renal dialysis; Z79.899 Other long term (current) drug therapy
CPT/HCPCS: 36415; 36600; 71045; 71046; 71260; 74176; 76700; 80053; 80061; 80074; 80202; 82803; 83036; 83605; 83735; 83880; 84100; 84443; 84484; 85025; 85610; 85730; 86331; 86635; 86706; 87040; 87081; 87502; 87634; 87811; 92610; 93306; 93971; 94640; 94660; 94667; 96365; 96366; 96367; 96368; 96375; 97162; 99291; A4649; A9270; J0131; J1643; J1644; J1815; J2405; J2470; J2543; J3370; J3475; J3480; J3490; J7040; J7050; J7120; P9047; Q9967

== ENCOUNTER 2025-02-13 16:15 | Inpatient (IN) | payer MEDICARE, BC, SELFPAY ==
[2025-02-13] VITALS (9 sets, daily range): BP systolic 79–108; BP diastolic 54–66; PULSE 76–97; RESP 16–18; TEMP 36.4–36.8; O2SAT 94–100; BMI 24.2
[2025-02-13] MEDS: SODIUM CHLORIDE 0.9% 1000 ML 1,000 ML 999 ML IV (17:53)
--- NOTE | 2025-02-13 18:07 | XR_ITS ---
Examination: CT abdomen and pelvis without contrast. Coronal 3-D reconstructions. Sagittal 2-D reconstructions. Date and time of exam:February 13, 2025 1834 hrs. Indications: Patient fell today with injury to the abdomen, abdomen pain CTDI: vol (mGy): 8.51 DLP: (mGycm): 578 Technique: Axial images of the abdomen have been obtained, 3 mm slice thickness Intravenous contrast material has not been administered. Low dose protocols were performed. One or more of the following dose reduction techniques were used; automated exposure control, adjustment of the mA and/or KV according to patient size, use of iterative reconstruction technique. Findings: Atelectasis versus mild pneumonia left base No pneumothorax Trace pericardial effusion Old right-sided rib fractures No liver splenic or left renal laceration Absent right kidney No gallstones Abdominal aorta intact No free blood in the abdomen Normal appendix Mild diffuse thickening urinary bladder wall Grade 1 anterolisthesis L4 on L5 Lumbar vertebral bodies bones of the pelvis intact Impression: No liver splenic or left renal laceration Abdominal aorta intact No free blood in the abdomen or pelvis
--- NOTE | 2025-02-13 18:07 | PD.EDFALL ---
ED Fall Injury RME/HPI General Chief Complaint: Fall Stated Complaint: NEAR SYNCOPE Time Seen by Provider: 02/13/25 17:20 Arrival date/time: 02/13/25 16:15 RME / HPI RME / HPI Narrative: 64-year-old male patient with significant history of ESRD, diabetes mellitus, hypertension, came in for evaluation regarding syncope. Patient tripped and fell, and when the EMS arrived patient's blood pressure was noted on the low 70s. Patient had bariatric surgery a year ago and since then he ultimately lost more than 150 pounds of weight due to inability to eat and epigastric pain. He is not eating solid food for the last 4 months. He can only tolerate broth. Patient patient is being seen and followed by GI specialist in [place] and was noted to have ulcer on the stomach. Last endoscopy was done more than a month ago. But since then still unable to eat solid food except for soup. Patient is closely followed by his PCP and title insurance sales representative Dr. Chadwick who put him on midodrine 10 mg 3 times daily and Florinef 0.01 mg 3 times daily. His title insurance sales representative is concerned because open continue losing a lot of weight. Currently patient is denying any fever denies any headache denies any head injury. Related Data Home Medications ?Medication ?Instructions ?Recorded ?Confirmed cholecalciferol (vitamin D3) 50 2,000 unit PO QDAY #0 caps 12/19/15 12/09/24 mcg (2,000 unit) capsule (Vitamin D3) vitamin B complex 1 tab PO QDAY 04/01/19 12/09/24 nortriptyline 25 mg capsule 25 mg PO HS 11/12/20 12/09/24 hydroxyzine HCl 10 mg tablet 10 mg PO QPM 03/07/24 12/09/24 insulin aspart U-100 100 unit/mL 5 unit subcut TID 03/07/24 12/09/24 (3 mL) subcutaneous pen (Novolog FlexPen U-100 Insulin aspart) midodrine 10 mg tablet 10 mg PO TID 03/07/24 12/09/24 sevelamer carbonate 800 mg tablet 800 mg PO .with meals 12/09/24 12/09/24 Previous Rx's ?Medication ?Instructions ?Recorded albuterol sulfate 90 mcg/actuation 2 puff inhalation Q6H PRN 12/13/24 aerosol inhaler shortness of breath or wheezing #6.7 grams amoxicillin 250 mg-potassium 1 tab PO QDAY #3 tabs 12/13/24 clavulanate 125 mg tablet Allergies Allergy/AdvReac Type Severity Reaction Status Date / Time house dust Allergy Verified 02/13/25 16:57 Review of Systems Review of Systems Narrative Review of Systems: Review of system reviewed and within normal limits except mentioned in HPI ED Exam Narrative Physical exam: VITAL SIGNS: Reviewed. GENERAL APPEARANCE: Alert and interactive, follows commands, no acute distress, HEAD AND FACE: Non-traumatic. ENT: PERRL, pink conjunctivitis, eyelid no trauma, Mucous membrane moist. NECK: Supple, nontender, no nuchal rigidity. CHEST: No tenderness, no crepitus, no paradoxical movement, no retractions. LUNGS: Clear, well ventilated, symmetric, no rales, no wheezing, no ronchi, no stridor, good breath sounds bilaterally. HEART: Regular rate, regular rhythm, no murmur, no gallops. ABDOMEN: Soft, positive bowel sounds, nondistended, no guarding, nontender, no rebound, no masses, RECTAL: Deferred. GENITAL: Deferred. NEUROLOGICAL: Gross motor function intact sensory function intact, Appropriate for age. MUSCULOSKELETAL: low back nontender, full range of motion. EXTREMITIES: Nontender, full range of motion. SKIN: Color pink, dry, no rash, no lacerations, no abrasions, no contusions. LYMPHATICS: Deferred. Course Quality Measures none Orders Category Date Time Status COVID-19 Screening Questionnaire NOW Care 02/13/25 20:58 Active Decision to Admit X1 Care 02/13/25 20:58 Active EKG (ED ONLY) *Do not use* NOW Care 02/13/25 21:03 Completed NPO NOW Care 02/13/25 20:58 Active Consult to Gastroenterology Stat Cons 02/13/25 18:10 Ordered Consult to Nephrology Stat Cons 02/13/25 18:10 Ordered Diet NPO (NOW) Diet 02/13/25 20:[address] abdomen pelvis wo con Stat Exams 02/13/25 18:07 Completed EKG (ED Only) Stat Exams 02/13/25 21:03 Draft XR chest 1V Stat Exams 02/13/25 18:08 Completed B-Type Natriuretic Peptide Stat Lab 02/13/25 17:45 Completed Blood Culture (Lab) Stat Lab 02/13/25 19:02 Received CBC Stat Lab 02/13/25 17:45 Completed Comprehensive Metabolic Panel Stat Lab 02/13/25 17:45 Completed Lactate (Lactic Acid) Stat Lab 02/13/25 19:02 Results Magnesium Stat Lab 02/13/25 17:45 Completed Partial Thromboplastin Time Stat Lab 02/13/25 17:45 Completed Phosphorous Stat Lab 02/13/25 17:45 Completed Procalcitonin Stat Lab 02/13/25 17:45 Completed Prothrombin Time with INR Stat Lab 02/13/25 17:45 Completed Troponin I Stat Lab 02/13/25 17:45 Completed Urinalysis, C/S if Indicated Stat Lab 02/13/25 18:08 Ordered Ringers Lactated 1000 ml [Lactated Ringers] 1,000 ml Med 02/13/25 20:58 Active IV 999 mls/hr Sodium Chloride 0.9% 1000 ml [Ns] 1,000 ml Med 02/13/25 17:46 Discontinued IV 999 mls/hr Vital Signs Vital signs: Vital Signs Temperature 98.3 F 02/13/25 16:16 Pulse Rate 97 02/13/25 16:16 Respiratory Rate 18 02/13/25 16:16 Blood Pressure 103/58 L 02/13/25 16:16 Pulse Oximetry (%) 100 02/13/25 16:16 Oxygen Delivery Method Room Air 02/13/25 16:16 Fall MDM Narrative MDM Narrative:: 64-year-old male patient with significant history of ESRD, diabetes mellitus, hypertension, came in for evaluation regarding syncope. Patient tripped and fell, and when the EMS arrived patient's blood pressure was noted on the low 70s. Patient had bariatric surgery a year ago and since then he ultimately lost more than 150 pounds of weight due to inability to eat and epigastric pain. He is not eating solid food for the last 4 months. He can only tolerate broth. Patient patient is being seen and followed by GI specialist in [place] and was noted to have ulcer on the stomach. Last endoscopy was done more than a month ago. But since then still unable to eat solid food except for soup. Patient is closely followed by his PCP and title insurance sales representative Dr. Chadwick who put him on midodrine 10 mg 3 times daily and Florinef 0.01 mg 3 times daily. His title insurance sales representative is concerned because open continue losing a lot of weight. Currently patient is denying any fever denies any headache denies any head injury. I got a call from Dr. Chadwick, patient's title insurance sales representative last PCP, who advised me to admit the patient and asked Dr. Fitzpatrick to see the patient also to rule out stricture due to inability to eat solid food for the last 4 months. Patient's was noted to be still in the low 90s despite 2 L of IV fluids. Patient chest x-ray showed Minor atelectasis left base Workup today all came back unremarkable except for creatinine of 4.5, chloride 95 lactic acid 2.[address] In[address] scan of the abdomen and pelvis that showed No liver splenic or left renal laceration Abdominal aorta intact No free blood in the abdomen or pelvis Patient data External records reviewed:: None Clinical information provided by:: patient and family Social determinants that could affect healthcare access:: none Patient has the following chronic illnesses:: ESRD, status post bariatric surgery How is presenting disease/condition affected by chronic disease/condition?: exacerbated by Evaluation data The following diagnostics were reviewed and interpreted by me:: lab results, radiology exam(s) and EKG tracing(s) Lab and/or radiology exams considered but not ordered:: None Interpretation Summary: EKG showed sinus rhythm, ventricular rate of 81 bpm, no ST segment elevation depression noted. Medications / Prescriptions Medications or Prescriptions considered but not ordered:: None Medication administrations:: Medication Administration History Acetaminophen (Acetaminophen 325 Mg Tablet) 650 mg PO Q6H PRN PRN Reason: Fever >101.5 Stop: 03/15/25 21:12 Dextrose (Dextrose 50%-Water Inj 50 Ml Syringe) 25 ml IV Q15MIN PRN PRN Reason: BG 50-70 responsive npo pt Stop: 03/15/25 21:14 Dextrose (Dextrose 50%-Water Inj 50 Ml Syringe) 50 ml IV Q15MIN PRN PRN Reason: BG <50 OR BG <70 & pt unresponsive Stop: 03/15/25 21:14 Glucagon (Glucagon Inj 1 Mg Vial) 1 mg IM Q15MIN PRN PRN Reason: BG <70, and no IV access Heparin Sodium (Porcine) (Heparin Sod Inj 5000 Unit/Ml Vial) 5,000 unit SC Q8HR ERIC Stop: 02/27/25 21:59 Lactated Ringer's (Lactated Ringers) 1,000 mls @ 999 mls/hr IV .Q1H1M ONE Stop: 02/13/25 21:58 Last Admin: 02/13/25 21:34 Dose: 999 mls/hr Documented By: MAYRA Sodium Chloride (Ns) 1,000 mls @ 50 mls/hr IV .Q20H ERIC Stop: 03/15/25 21:14 Insulin Human Lispro (Insulin Lispro (Admelog) 1 Unit/0.01 Ml Unit) 0 unit SC AC [facility]; Protocol Stop: 03/16/25 07:29 Midodrine (Midodrine 5 Mg Tablet) 10 mg PO TID [facility] Stop: 03/15/25 21:59 Pantoprazole Sodium (Pantoprazole Inj 40 Mg Vial) 40 mg IVP QDAY [facility] Stop: 03/16/25 08:59 Discontinued Medications Sodium Chloride (Ns) 1,000 mls @ 999 mls/hr IV .Q1H1M ONE Stop: 02/13/25 18:46 Last Infusion: 02/13/25 19:00 Dose: Infused Documented By: Admin: 02/13/25 17:53 Dose: 999 mls/hr Documented By: JIAN IV fluids for hydration Consultations Consultation(s) initiated? (list below): Yes Consultation #1 (Physician, Specialty, Details): Dr. Fitzpatrick, GI specialist on-call thank you Dr. Fitzpatrick Consultation #2 (Physician, Specialty, Details): Dr. Chadwick, title insurance sales representative, thank you Dr. Chadwick Diagnosis Fall Differential Diagnosis: syncope and concussion with loss of consciousness (Dehydration, hypotension, failure to thrive) Most likely diagnosis given after review of the tests above:: Hypotension, failure to thrive Admission Indicated Admission indicated?: indicated Admission Request Was there a request for admission?: Yes Admission Attestation Admission request attestation: Discussed case with [Dr Ng] from Hospitalist service regarding admission. Discussed patients ED course, exam findings, labs, and radiology results. The Hospitalist [agrees ] to accept the patient for admission. Disposition Plan Disposition Plan: Admit Discharge Plan Plan Patient Disposition: Admit Acute Care w/in Hospital Disposition Comment: Stable Problem List Clinical Impression: Syncope, Adult failure to thrive
--- NOTE | 2025-02-13 18:08 | XR_ITS ---
Examination: AP chest single view Technique: AP portable upright chest single view Exam date and time: February 13, 2025 1851 hrs. Indications: Hypertension today with syncopal episode Findings: Right internal jugular dialysis catheter tip satisfactory position Minor atelectasis left base No aspiration pneumonia Normal heart size Impression: Minor atelectasis left base
[2025-02-13 18:54] LABS: Basophils # (Auto) 0.1 Thou/mm3 (0.0-0.2); Basophils % (Auto) 1 % (0-2.5); Eosinophils # (Auto) 0.2 Thou/mm3 (0.0-0.5); Eosinophils % (Auto) 2 % (0-10); Hematocrit 37.2 % (41.0-53.0); Hemoglobin 12.7 g/dL (13.5-16.0); Immature Granulocytes % (Auto) 0 % (0-0); Immature Granulocytes Auto 0.03 Thou/mm3 (0.00-0.00); Lymphocytes # (Auto) 2.2 Thou/mm3 (1.0-4.8); Lymphocytes % (Auto) 30 % (10-50); Mean Corpuscular HGB Conc 34.1 g/dl (31.0-37.0); Mean Corpuscular Hemoglobin 32.5 pg (25.0-35.0); Mean Corpuscular Volume 95 fL (80-100); Monocytes % (Auto) 13 % (0-12); Neutrophils # (Auto) 3.8 Thou/mm3 (1.8-7.7); Neutrophils % (Auto) 53 % (37-80); Nucleated Red Blood Cell % 0 /100 WBC (0); Platelet Count 183 Thou/mm3 (140-440); RDW Standard Deviation 45.3 fL (35.1-43.9); Red Blood Count 3.91 Miln/mm3 (4.50-5.90); White Blood Count 7.2 Thou/mm3 (3.8-10.6)
[2025-02-13 19:06] LABS: Lactate (Lactic Acid) 2.2 mMol/L (0.4-2.0)
[2025-02-13 19:15] LABS: Partial Thromboplastin Time 26.6 Seconds (22.0-36.0); Prothrombin Time 11.2 Seconds (9.0-12.2)
[2025-02-13 19:16] LABS: B-Type Natriuretic Peptide 98 pg/mL (0-100)
[2025-02-13 19:24] LABS: Alanine Aminotransferase 10 U/L (10-49); Albumin, Serum 3.2 gm/dL (3.4-4.8); Albumin/Globulin Ratio 1.2 (1.2-2.2); Alkaline Phosphatase 132 U/L (46-116); Anion Gap 12 (7-16); Aspartate Amino Transferase 18 U/L (0-34); BUN/Creatinine Ratio 3 Ratio (12-20); Bilirubin,Total 0.5 mg/dL (0.3-1.2); Blood Urea Nitrogen 14 mg/dL (9-23); Calcium (Corrected) 10.6 mg/dL (8.5-10.1); Carbon Dioxide 29.2 mMol/L (20.0-31.0); Chloride 95 mMol/L (98-107); Creatinine (Component) 4.5 mg/dL (0.6-1.3); Estimated Creatinine Clearance 16.8 mL/min (>60); Globulin 2.7 gm/dL (2.3-3.5); Glucose 121 mg/dL (74-106); Magnesium 1.8 mg/dL (1.6-2.6); Osmolality,Calculated 273 (275-295); Phosphorous 3.2 mg/dL (2.4-5.1); Potassium 3.7 mMol/L (3.4-5.1); Procalcitonin 0.35 ng/ml (0.0-0.49); Sodium 136 mMol/L (136-145); Total Protein 5.9 gm/dL (5.7-8.2); Troponin I 0.022 ng/mL (0.0-0.045); eGFR 14 See Note
--- NOTE | 2025-02-13 21:03 | EKG_ITS ---
[facility] Test Date: 2025-02-13 Pat Name: TA TSONE Department: Room: - Gender: Male Lead Network Engineer: : 1960 Requested By: Katie Corado Order Number: [id number] Reading MD: Katie Corado Measurements Intervals [place] Rate: 81 P: 64 AK: 141 QRS: 52 QRSD: 89 T: 55 QT: 390 QTc: 453 Interpretive Statements SINUS RHYTHM LOW QRS VOLTAGE IN PRECORDIAL LEADS [QRS DEFLECTION < 1.0 mV IN CHEST LEADS] NONSPECIFIC T-WAVE ABNORMALITY Compared to ECG 03/07/2024 09:46:19 Low QRS voltage now present Prolonged QT interval no longer present T-wave abnormality still present /store/S0/[id number]/ecg/[id number].pdf
--- NOTE | 2025-02-13 21:07 | PD.IMCONS ---
HPI Data of Consult Primary Care Provider: Sunil Chadwick MD Consult Narrative Reason for consult: Nausea vomiting syncope History of present illness: 69-year-old male evaluated at request of his steward/stewardess third class as well as the ER physician assistant curator Patient presented to the emergency room with a blood pressure in the 70s and a syncopal episode Ever since the gastric bypass procedure has lost about 150 pounds of weight and has not been able to eat for the last 4 months except broth I have been consulted Patient has a history of end-stage renal disease on hemodialysis diabetes mellitus type 2 and essential hypertension Patient currently on midodrine 3 times a day and Florinef 0.01 mg 3 times a day cc:: cc: Review of Systems Review of Systems Systems Reviewed: All systems reviewed, normal except as documented Past Medical History Surgical History OTHER SURGICAL HX: As in the history of present illness Meds Home Medications and Allergies Home Medications ?Medication ?Instructions ?Recorded ?Confirmed ?Type cholecalciferol (vitamin D3) 50 2,000 unit PO QDAY #0 caps 12/19/15 12/09/24 History mcg (2,000 unit) capsule (Vitamin D3) vitamin B complex 1 tab PO QDAY 04/01/19 12/09/24 History nortriptyline 25 mg capsule 25 mg PO HS 11/12/20 02/13/25 History hydroxyzine HCl 10 mg tablet 10 mg PO QPM 03/07/24 12/09/24 History insulin aspart U-100 100 unit/mL 5 unit subcut TID 03/07/24 12/09/24 History (3 mL) subcutaneous pen (Novolog FlexPen U-100 Insulin aspart) midodrine 10 mg tablet 10 mg PO TID 03/07/24 02/13/25 History sevelamer carbonate 800 mg tablet 800 mg PO .with meals 12/09/24 12/09/24 History Allergies Allergy/AdvReac Type Severity Reaction Status Date / Time house dust Allergy Verified 02/14/25 00:52 Exam Vital Signs Temp Pulse Resp BP Pulse Ox O2 Del Method 97.6 F 84 18 105/66 94 L Room Air 02/13/25 20:00 02/13/25 21:02 02/13/25 21:02 02/13/25 21:02 02/13/25 21:02 02/13/25 21:02 Constitutional Comments: Chronically ill-appearing cachectic and malnourished Routine Respiratory Exam Comments: Normal to auscultation Routine Abdominal Exam Comments: Soft nontender Results Labs 02/14/25 03:30 02/14/25 03:30 Labs: Short CBC 02/13/25 Range/Units 17:45 WBC 7.2 (3.8-10.6) Thou/mm3 Hgb 12.7 L (13.5-16.0) g/dL Hct 37.2 L (41.0-53.0) % Plt Count 183 (140-440) Thou/mm3 BMP 02/13/25 17:45 Sodium 136 Potassium 3.7 Chloride 95 L Carbon Dioxide 29.2 BUN 14 Creatinine 4.5 H* Glucose 121 H Calcium 10.0 Cardiac Enzymes 02/13/25 Range/Units 17:45 Troponin I 0.022 (0.0-0.045) ng/mL Liver Function 02/13/25 Range/Units 17:45 Total Bilirubin 0.5 (0.3-1.2) mg/dL AST 18 (0-34) U/L ALT 10 (10-49) U/L Alkaline Phosphatase 132 H (46-116) U/L Albumin 3.2 L (3.4-4.8) gm/dL Assessment and Plan Additional Assessment & Plan Additional Plan: # Nausea vomiting post-bariatric procedure most likely stenosis with ulceration at the anastomotic site # Abnormal weight loss most likely due to bariatric surgical procedure but complicated by persistent nausea vomiting and inability to eat solid food Plan Consent obtained for fiberoptic esophagogastroduodenoscopy with possible biopsy possible therapeutic intervention under intravenous moderate sedation Other medical problems include End-stage renal disease on hemodialysis Diabetes mellitus type 2 Chronic hypotension Thank you very much for the opportunity to participate in the care of this patient
--- NOTE | 2025-02-13 21:12 | EVENTNT_ITS ---
Documentation for date of: 02/13/25 Event Note Event Note: A 64-year-old male presented to the ER with the chief complaint of a fall. The patient reports he tripped and fell while at a medical center but did not experience any head trauma. He denied dizziness but endorsed generalized w eakness. He denied fever, shortness of breath, cough, or chest pain. The patient reports a significant weight loss following gastric bypass surgery in 2022, which was done as a requirement for kidney transplant eligibility. He has since been unable to tolerate solid food for the past 4 months, reporting vomiting with any solid intake and only tolerating broth. He is currently under the care of a GI specialist in [place] who previously identified a gastric ulcer during endoscopy; a repeat endoscopy is planned. He receives dialysis on a [id number] schedule, with his last session being the day prior to presentation. Recent echo showed normal LV size and wall thickness with EF 60%. The patient has a history of ESRD on dialysis, DM, CRISTIANO on CPAP, and status post gastric bypass in 2022. He is on insulin as needed guided by CGM. Surgical history includes gastric bypass. He is non-smoker, does not consume alcohol or use recreational drugs. He lives with his sister and describes himself as functionally independent. He is currently on the kidney transplant list and under the care of his PCP and academic support coordinator, Dr. Chadwick. In the ER, vital signs were temp 98.3 ?F, HR 97 bpm, RR 18, BP 103/58 mmHg. Labs showed WBC 7.2, Hb 12.7, platelets 183, Na 136, K 3.7, BUN 14, creatinine 4.5, lactate 2.2, glucose 121, procalcitonin 0.35. CXR showed minor atelectasis at the left base. Abdominal CT showed no evidence of laceration or free fluid. GI was consulted for dysphagia and repeat endoscopy is planned. The patient was admitted for further evaluation and management. #Protein-Calorie Malnutrition Assessment: Severe oral intake limitation (4 months), post-gastric bypass, tolerates only broth, vomiting with solids, weight loss, likely secondary to gastric ulcer or anatomic complications post-surgery Plan: - GI to proceed with planned endoscopy for structural evaluation - Labs: Prealbumin, albumin, vitamin levels (B12, D, folate, iron studies) - Start empiric PPI - Consult Nutrition for calorie/protein optimization #End-Stage Renal Disease on HD Assessment: Stable post-HD, no volume overload, no electrolyte derangements, l ast HD 1 day prior Plan: - Continue regular HD schedule (TTS) #Gastric Ulcer Assessment: History of gastric ulcer with recurrent symptoms; ongoing vomiting and dysphagia; repeat EGD pending Plan: - GI following; continue acid suppression therapy - NPO - Rule out stricture or marginal ulceration post-bypass #Diabetes Mellitus Assessment: Insulin-dependent, using CGM, no acute glucose derangements during admission Plan: - Target preprandial <140 mg/dL, random <180 mg/dL - Insulin sliding scale - Monitor glucose and electrolytes closely due to poor PO intake #Hypotension Assessment: Normotensive on admission Plan: - Continue Midodrine #Obstructive Sleep Apnea Assessment: Stable, on home CPAP Plan: - Continue CPAP therapy during hospitalization if patient uses routinely
[2025-02-13] MEDS: RINGERS LACTATED 1000 ML 1,000 ML 999 ML IV (21:34)
--- NOTE | 2025-02-13 21:52 | ESHP_ITS ---
Documentation for date of: 02/13/25 HPI History of Present Illness Chief complaint: Ground-level fall intractable nausea and vomiting History of present illness: This patient is a 64-year-old male past medical history of right nephrectomy performed in 2020, ESRD on HD with right IJ catheter Tuesdays and Sunday, longstanding history of diabetes, hyperlipidemia, CRISTIANO using CPAP, BPH, s/p gastric bypass in 2022 presented to the hospital on 02/13/2025 with chief complaint of ground-level fall after [facility] off [facility] with a primary care doctor. He denied hitting his head on the floor and did not lose consciousness. He denied any chest pain, shortness of breath, abdominal discomfort or dizziness or lightheadedness. Patient was unable to get up and was brought by EMS to the hospital. He had mild discomfort in his right knee and mild abrasion. He had a significant history of having intractable nausea and vomiting from last 4 months as he is unable to keep anything inside stomach. He reported that he is unable to tolerate solid food and only take liquid diet which he is barely able to take as well. He stated that he also has dry heaves quite frequently. He has been following up with bariatric surgeon in [place] named Dr. Osman who is investigating the cause of his intractable nausea and vomiting and reported that he might have a gastric ulcer per endoscopy which was performed by bariatric doctors which she is following up. He was due for another endoscopy. He has been taking Protonix. He reported to have bowel movement every other day as he barely eats. Denied any blood in the stools. Of note, patient had a new left arm AV fistula not mature and is getting dialysis through right IJ catheter currently as of right arm AV fistula was clotted up. Patient received dialysis on 02/12. In the ED, patient had a blood pressure of 105/66, heart rate 84 bpm, respiratory rate 18 and afebrile. He was saturating well on room air. Labs were significant for normocytic anemia with hemoglobin 12.7. White count 7.2. Platelets 183. CHEM panel showed electrolytes sodium 136, potassium 3.7, chloride 95 and bicarb 29.2. Kidney functions consistent with ESRD with BUN 49 creatinine 4.5 EGFR 14. Lactic acid 2.2. Corrected calcium 10.6. Phosphorus 3.2. Magnesium 1.8. Troponin I was 0.022. Urinalysis was not taken. EKG showed low voltage sinus rhythm. QTc 453. Chest x-ray showed minor atelectasis left base. CT abdominal showed trace pericardial effusion old right sided rib fracture and mild diffuse thickening of urinary bladder. Grade 1 anterolisthesis L4 on L5. No free blood in the abdominal pelvis. PMH: As above PSH: Right nephrectomy, tonsillectomy, gastric bypass SH: Denies smoking, drinking alcohol. No history of illicit drug use. He lives with his sister and use walker sometimes for ambulation. He is currently on kidney transplant list under care of his PCP and acid purification equipment operator, Dr. Chadwick. Allergies: House dust Home medications: Midodrine 10 mg 3 times daily, metoprolol extended release 50 mg twice daily, sevelamer carbonate 800 mg, atorvastatin, hydroxyzine, nortriptyline, isosorbide extended release 30 mg, vitamin D3, tamsulosin 0.4 mg Patient is admitted for further workup and management of intractable nausea and vomiting related to possible gastric ulcer. Review of Systems Review of Systems Systems Reviewed: All systems reviewed, normal except as documented Past Medical History Past Medical History NEUROLOGIC: Positive Transient Ischemic Attacks (TIA) (2019); Negative Neurological Disorders or Seizures CARDIAC: Positive Hypercholesterolemia and Hypertension; Negative Cardiac Disorders or Congestive Heart Failure RESPIRATORY: Positive Asthma, Pneumonia and Sleep Apnea (CPAP at home); Negative Chronic Obstructive Pulmonary Disease (COPD) GASTROINTESTINAL: Positive Gastrointestinal Disorders and Gastroesophageal Reflux Disease GENITOURINARY: Positive Genitourinary Disorders, Renal Disease, Kidney Stones and Dialysis (T, TH, SAT) MUSCULOSKELETAL: Positive Musculoskeletal Disorders and Arthritis ENT: Positive Cataracts (bilateral) ENDOCRINE: Positive Endocrine Disorders, Diabetes Mellitus Type 2 and Hypoglycemia; Negative Diabetes Mellitus Type 1 HEMATOLOGIC: Negative Blood Disorders or Sickle Cell Disease OTHER HISTORY: Positive Chicken Pox, Measles and Mumps; Negative Autoimmune Disease, Blood Transfusions, Blood Transfusion Reaction, Anesthesia Reactions or Cancer Family History FAMILY HISTORY: Negative Family Cancer Surgical History SURGICAL: Positive Tonsillectomy and Nephrectomy (right) Social History SMOKING STATUS: Never smoker SECOND HAND EXPOSURE: No Exam Vital Signs Temp Pulse Resp BP Pulse Ox O2 Del Method 97.6 F 84 18 105/66 94 L Room Air 02/13/25 20:00 02/13/25 21:02 02/13/25 21:02 02/13/25 21:02 02/13/25 21:02 02/13/25 21:02 Narrative Exam GENERAL APPEARANCE: AxOx4, pale appearing male lethargic in no acute distress. Saturating well on room air HEENT: NC, AT. MMM. EOMI, clear conjunctiva, oropharynx clear. Right IJ catheter NECK: Supple without lymphadenopathy. No stiffness or restricted ROM. HEART: Regular rate and regular rhythm, normal S1/S2, no m/r/g LUNGS: CTAB, moving air well. No crackles or wheezes are heard. ABDOMEN: Soft, nontender, scaphoid abdomen and nondistended with good bowel sounds heard. BACK: No CVAT, no obvious deformity. EXTREMITIES: Without cyanosis, clubbing or edema. Abrasion on right knee. NEUROLOGICAL: Grossly nonfocal. Alert and oriented, moving all 4 extremities. CN not formally tested but appear grossly intact. Observed to ambulate with normal gait. Skin: Warm and dry without any rash. Psych: Lethargic however answering questions appropriately Results: Labs 02/13/25 17:45 02/13/25 17:45 Labs: Short CBC 02/13/25 Range/Units 17:45 WBC 7.2 (3.8-10.6) Thou/mm3 Hgb 12.7 L (13.5-16.0) g/dL Hct 37.2 L (41.0-53.0) % Plt Count 183 (140-440) Thou/mm3 BMP 02/13/25 17:45 Sodium 136 Potassium 3.7 Chloride 95 L Carbon Dioxide 29.2 BUN 14 Creatinine 4.5 H* Glucose 121 H Calcium 10.0 Cardiac Enzymes 02/13/25 Range/Units 17:45 Troponin I 0.022 (0.0-0.045) ng/mL Liver Function 02/13/25 Range/Units 17:45 Total Bilirubin 0.5 (0.3-1.2) mg/dL AST 18 (0-34) U/L ALT 10 (10-49) U/L Alkaline Phosphatase 132 H (46-116) U/L Albumin 3.2 L (3.4-4.8) gm/dL Quality Measures Quality Measures VTE prophylaxis (Heparin SC ) Medications Home Medications and Allergies Home Medications ?Medication ?Instructions ?Recorded ?Confirmed ?Type cholecalciferol (vitamin D3) 50 2,000 unit PO QDAY #0 caps 12/19/15 12/09/24 History mcg (2,000 unit) capsule (Vitamin D3) vitamin B complex 1 tab PO QDAY 04/01/1912/09 History nortriptyline 25 mg capsule 25 mg PO HS 11/12/2002/13 History hydroxyzine HCl 10 mg tablet 10 mg PO QPM 03/07/2402/27 History insulin aspart U-100 100 unit/mL 5 unit subcut TID 01/2612/09/24 History (3 mL) subcutaneous pen (Novolog FlexPen U-100 Insulin aspart) midodrine 10 mg tablet 10 mg PO TID 03/07/24 History sevelamer carbonate 800 mg tablet 800 mg PO .with meal s 12/09/24 12/09/24 History Allergies Allergy/AdvReac Type Severity Reaction Status Date / Time house dust Allergy Verified 02/13/25 16:57 Visit Medications Acetaminophen (Acetaminophen 325 Mg Tablet) 650 mg PO Q6H PRN PRN Reason: Fever >101.5 Stop: 03/15/25 21:12 Dextrose (Dextrose 50%-Water Inj 50 Ml Syringe) 25 ml IV Q15MIN PRN PRN Reason: BG 50-70 responsive npo pt Stop: 03/15/25 21:14 Dextrose (Dextrose 50%-Water Inj 50 Ml Syringe) 50 ml IV Q15MIN PRN PRN Reason: BG <50 OR BG <70 & pt unresponsive Stop: 03/15/25 21:14 Glucagon (Glucagon Inj 1 Mg Vial) 1 mg IM Q15MIN PRN PRN Reason: BG <70, and no IV access Heparin Sodium (Porcine) (Heparin Sod Inj 5000 Unit/Ml Vial) 5,000 unit SC Q8HR ERIC Stop: 02/27/25 21:59 Lactated Ringer's (Lactated Ringers) 1,000 mls @ 999 mls/hr IV .Q1H1M ONE Stop: 02/13/25 21:58 Last Admin: 02/13/25 21:34 Dose: 999 mls/hr Sodium Chloride (Ns) 1,000 mls @ 50 mls/hr IV .Q20H ERIC Stop: 03/15/25 21:14 Insulin Human Lispro (Insulin Lispro (Admelog) 1 Unit/0.01 Ml Unit) 0 unit SC AC [facility]; Protocol Stop: 03/16/25 07:29 Midodrine (Midodrine 5 Mg Tablet) 10 mg PO TID [facility] Stop: 03/15/25 21:59 Pantoprazole Sodium (Pantoprazole Inj 40 Mg Vial) 40 mg IVP QDAY [facility] Stop: 03/16/25 08:59 Discontinued Medications Sodium Chloride (Ns) 1,000 mls @ 999 mls/hr IV .Q1H1M ONE Stop: 02/13/25 18:46 Last Infusion: 02/13/25 19:00 Dose: Infused Assessment & Plan Plan Summary: This patient is a 64-year-old male past medical history of right nephrectomy performed in 2020, ESRD on HD with right IJ catheter Tuesdays and Sunday, longstanding history of diabetes, hyperlipidemia, CRISTIANO using CPAP, BPH, s/p gastric bypass in 2022 presented to the hospital on 02/13/2025 with chief complaint of ground-level fall and intractable nausea and vomiting x 4 months ago. Admitted for workup of intractable nausea and vomiting likely due to possible gastric ulcer versus ?esophageal stricture. #Intractable nausea and vomiting #Likely related to possible gastric ulcer versus ?possible Esophageal stricture #History of gastric bypass in 2022 ? Patient reported to have 4-month history of intractable nausea and vomiting. He is only able to tolerate liquid diet and has not been taking any solid food. ? Passes bowel movement every other day and denied any blood in the stool. ? EGD was performed by his bariatric surgery team in [place] and he was found to have gastric ulcer and repeat EGD was planned and getting workup. ? In the ED, patient was mildly hypertensive, had regular heart rate afebrile and saturating well on room air. Labs showed normocytic anemia with hemoglobin 12.7.CT abdominal showed trace pericardial effusion old right sided rib fracture and mild diffuse thickening of urinary bladder. Grade 1 anterolisthesis L4 on L5. No free blood in the abdominal pelvis.Ultrasound of the abdomen on 12/09 showed moderate hepatomegaly. Plan: ? IV Protonix 40 mg once daily ? GI has been consulted, appreciate recommendations ? Ordered iron, ferritin B12, folic acid, vitamin D levels ? N.p.o. for now for possible endoscopy tomorrow ? Gentle IV fluids NS at 50 cc/h ? Follow-up with electrolytes and labs ? Hypoglycemia protocol in place ? Refer to registered dietitian #Ground-level fall likely related to decreased p.o. intake -Syncope- ruled out ? Patient reported to have ground-level fall after tripping off on the carpet. EKG showed sinus rhythm with low voltage. ? As patient did not hit his head on the floor therefore head CT was not ordered. Patient is AOx3 and conscious. Denied any unconsciousness or syncope, chest pain or shortness of breath. Echocardiogram from 12/08/2024 showed EF 60%. ? Troponin I was 0.022 Plan: ? Fall prevention ? Physical therapy evaluation ? Gentle IV fluids ? Hypoglycemia protocol in place ? Midodrine 10 mg 3 times daily ? Follow-up with a.m. troponin I #ESRD on hemodialysis(//SUN] #Hx of Right nephrectomy ?Patient reports to have his dialysis session on 02/12. He follows Dr. Chadwick as outpatient. Patient recently had a left AV fistula still not functional to be used and currently has a right IJ catheter for hemodialysis. Patient still makes urine. Plan: ? [employer], Dr. Chadwick consulted for further recommendations ? Anticipate correction of electrolytes and kidney functions with dialysis ? Avoid nephrotoxic agents, renally dose medications, strict MARYANN's ? Resume dialysis inpatient ? Resumed fludrocortisone 0.1 3 times daily #Anemia of chronic disease ? Likely related to ESRD ? PRBC if hemoglobin drops below 7 ? Daily CBC ? Ordered vitamin B-12, iron, ferritin and folate #History of type 2 diabetes on insulin -well-controlled ? Per chart review A1c 5.7 Plan: ? Blood sugar checks Q6 hourly as patient is n.p.o. ? Hypoglycemia protocol in place #History of CRISTIANO ? Patient use CPAP at night Plan ? Continue CPAP at night ? Resumed nortriptyline patient's home medication #History of hypertension ? Holding antihypertensive as patient's blood pressure is currently stable Health maintenance: Diet: N.p.o. GI prophylaxis: Protonix 40 mg IV daily DVT prophylaxis: Heparin subcut CODE STATUS: Full code Disposition: Admitted for workup of intractable nausea and vomiting likely related to esophageal ulcers versus possible stricture. Patient was seen and discussed with attending physician, Dr. Hernandez Rodriguez MD, PGY 2 Attending Provider Attestation/Addendum Pt was evaluated and plan formulated together with the housestaff team. I have reviewed the residents note above and agree with most of its content. Please refer to the residents note for additional details.
[2025-02-13 22:04] LABS: Reflex Lactate? Y
[2025-02-13 22:12] LABS: Iron 54 mcg/dL (65-175); Percent Iron Saturation 37 % (20-55); Prealbumin 20.2 mg/dL (10.0-40.0); Total Iron Binding Capacity 144 mcg/dL (250-425); Unsaturated Iron Binding 90 (225-295)
[2025-02-13 22:44] LABS: Lactic Acid, 3 HR 2.7 mMol/L (0.4-2.0)
[2025-02-13] MEDS: HEPARIN SOD INJ 5000 UNIT/ML VIAL SC (23:08)
[2025-02-13] MEDS: MIDODRINE 5 MG TABLET 10 MG PO (23:10)
[2025-02-13] MEDS: SODIUM CHLORIDE 0.9% 1000 ML 1,000 ML 50 ML IV (23:22)
[2025-02-13] MEDS: Magnesium Sulfate 2 GM Ivpb 2 GM/50 ML BAG IV (23:22)
[2025-02-13 23:33] LABS: Ferritin > 1650 ng/mL (10.5-307.3)
[2025-02-14] VITALS (15 sets, daily range): BP systolic 88–123; BP diastolic 50–78; PULSE 72–93; RESP 12–18; TEMP 35.9–37.1; O2SAT 92–100; BMI 52.0; BMI 24.3
[2025-02-14 03:46] LABS: Lactate (Lactic Acid) 1.1 mMol/L (0.4-2.0)
[2025-02-14 03:48] LABS: Basophils # (Auto) 0.1 Thou/mm3 (0.0-0.2); Basophils % (Auto) 1 % (0-2.5); Eosinophils # (Auto) 0.2 Thou/mm3 (0.0-0.5); Eosinophils % (Auto) 3 % (0-10); Hematocrit 38.9 % (41.0-53.0); Hemoglobin 13.2 g/dL (13.5-16.0); Immature Granulocytes % (Auto) 0 % (0-0); Immature Granulocytes Auto 0.02 Thou/mm3 (0.00-0.00); Lymphocytes # (Auto) 2.1 Thou/mm3 (1.0-4.8); Lymphocytes % (Auto) 27 % (10-50); Mean Corpuscular HGB Conc 33.9 g/dl (31.0-37.0); Mean Corpuscular Hemoglobin 32.8 pg (25.0-35.0); Mean Corpuscular Volume 97 fL (80-100); Monocytes # (Auto) 0.9 Thou/mm3 (0.0-0.8); Monocytes % (Auto) 11 % (0-12); Neutrophils # (Auto) 4.7 Thou/mm3 (1.8-7.7); Neutrophils % (Auto) 58 % (37-80); Nucleated Red Blood Cell % 0 /100 WBC (0); Platelet Count 166 Thou/mm3 (140-440); RDW Standard Deviation 46.2 fL (35.1-43.9); Red Blood Count 4.03 Miln/mm3 (4.50-5.90); White Blood Count 8.1 Thou/mm3 (3.8-10.6)
[2025-02-14 04:25] LABS: Anion Gap 10 (7-16); BUN/Creatinine Ratio 3 Ratio (12-20); Blood Urea Nitrogen 15 mg/dL (9-23); Calcium 9.4 mg/dL (8.3-10.6); Carbon Dioxide 29.9 mMol/L (20.0-31.0); Chloride 98 mMol/L (98-107); Creatinine (Component) 4.3 mg/dL (0.6-1.3); Estimated Creatinine Clearance 26.4 mL/min (>60); Glucose 97 mg/dL (74-106); Magnesium 2.1 mg/dL (1.6-2.6); Osmolality,Calculated 276 (275-295); Phosphorous 3.2 mg/dL (2.4-5.1); Potassium 3.4 mMol/L (3.4-5.1); Sodium 138 mMol/L (136-145); Troponin I 0.023 ng/mL (0.0-0.045); eGFR 15 See Note
[2025-02-14] MEDS: HEPARIN SOD INJ 5000 UNIT/ML VIAL SC ×2 (07:23→21:58)
[2025-02-14] MEDS: FLUDROCORTISONE ACETATE 0.1 MG TABLET PO ×2 (07:24→21:52)
[2025-02-14] MEDS: MIDODRINE 5 MG TABLET 10 MG PO ×2 (07:24→21:52)
[2025-02-14] MEDS: PANTOPRAZOLE INJ 40 MG VIAL IVP (10:00)
--- NOTE | 2025-02-14 15:45 | ESPR_ITS ---
<Statement entered by Stella Luna MD - 02/20/25 08:55> I reviewed above note and agree with findings and plans. I have also personally examined the patient with medicine team and went over assessment and plan with medical team including business analytics intern and resident physician. Documentation for date of: 02/14/25 Subjective Subjective Interval history: No overnight events. Patient seen examined at bedside, resting comfortably. Patient endorses generalized lethargy, otherwise feeling well as well as does not eat solid food. Has not experiences nausea or vomiting after any solid food. Otherwise denies shortness of breath, chest pain, fever, chills, headaches, weakness, abdominal pain. Ordered H. pylori testing, will follow-up. Pending EGD for further evaluation. Exam Vital Signs Temp Pulse Resp BP Pulse Ox O2 Del Method O2 Flow Rate 97.2 F 93 12 92/55 L 97 Room Air 3 02/14/25 12:00 02/14/25 15:35 02/14/25 15:35 02/14/25 15:35 02/14/25 15:35 02/14/25 12:00 02/14/25 15:35 Narrative Exam PE: Gen: Well-developed and well-nourished. Lethargic. HEENT: NCAT, PERRLA, EOMI, MMM, anicteric conjunctivae. CVS: normal S1 and S2. RRR. No M/R/G. Resp: CTA B/L. No rhonchi, rales, crackles or wheezing. Abd: soft, non-tender, non-distended. MSK: Good ROM in BUE & BLE. No edema or rash. Neuro: CN II-XII grossly intact. Strength 5/5 in BUE & BLE. Alert and oriented x3. Psych: appropriate mood and affect. Objective Labs 02/14/25 03:30 02/14/25 03:30 Labs: Laboratory Results - last 24 hr 02/13/25 02/13/25 02/13/25 17:45 19:02 22:35 WBC 7.2 RBC 3.91 L Hgb 12.7 L Hct 37.2 L MCV 95 MCH 32.5 MCHC 34.1 RDW Std Deviation 45.3 H Plt Count 183 Neut % (Auto) 53 Lymph % (Auto) 30 [place] % (Auto) 13 H Eos % (Auto) 2 Baso % (Auto) 1 Neut # (Auto) 3.8 Lymph # (Auto) 2.2 [place] # (Auto) 1.0 H Eos # (Auto) 0.2 Baso # (Auto) 0.1 Immature Gran # (Auto) 0.03 H Absolute Nucleated RBC 0.00 Immature Gran % 0 Nucleated RBC % 0 PT 11.2 INR 1.0 APTT 26.6 Sodium 136 Potassium 3.7 Chloride 95 L Carbon Dioxide 29.2 Anion Gap 12 BUN 14 Creatinine 4.5 H* Estim Creat Clear Calc 16.8 L eGFR 14 L* BUN/Creatinine Ratio 3 L Glucose 121 H Calculated Osmolality 273 L Lactic Acid 2.2 H 2.7 H Calcium 10.0 Corrected Calcium 10.6 H Phosphorus 3.2 Magnesium 1.8 Iron 54 L TIBC 144 L Iron Saturation 37 Unsat Iron Binding 90 L Ferritin > 1650 H Total Bilirubin 0.5 AST 18 ALT 10 Alkaline Phosphatase 132 H Troponin I 0.022 B-Natriuretic Peptide 98 Total Protein 5.9 Albumin 3.2 L Globulin 2.7 Albumin/Globulin Ratio 1.2 Prealbumin 20.2 Procalcitonin 0.35 02/14/25 03:30 WBC 8.1 RBC 4.03 L Hgb 13.2 L Hct 38.9 L MCV 97 MCH 32.8 MCHC 33.9 RDW Std Deviation 46.2 H Plt Count 166 Neut % (Auto) 58 Lymph % (Auto) 27 [place] % (Auto) 11 Eos % (Auto) 3 Baso % (Auto) 1 Neut # (Auto) 4.7 Lymph # (Auto) 2.1 [place] # (Auto) 0.9 H Eos # (Auto) 0.2 Baso # (Auto) 0.1 Immature Gran # (Auto) 0.02 H Absolute Nucleated RBC 0.00 Immature Gran % 0 Nucleated RBC % 0 PT INR APTT Sodium 138 Potassium 3.4 Chloride 98 Carbon Dioxide 29.9 Anion Gap 10 BUN 15 Creatinine 4.3 H* Estim Creat Clear Calc 26.4 L eGFR 15 L BUN/Creatinine Ratio 3 L Glucose 97 Calculated Osmolality 276 Lactic Acid 1.1 Calcium 9.4 Corrected Calcium Phosphorus 3.2 Magnesium 2.1 Iron TIBC Iron Saturation Unsat Iron Binding Ferritin Total Bilirubin AST ALT Alkaline Phosphatase Troponin I 0.023 B-Natriuretic Peptide Total Protein Albumin Globulin Albumin/Globulin Ratio Prealbumin Procalcitonin Quality Measures Quality Measures VTE prophylaxis (Heparin SC ) Assessment & Plan Assessment Current Active Medications: Generic Name Dose Route Start Last Admin Trade Name Freq PRN Reason Stop Dose Admin Acetaminophen 650 mg 02/13/25 21:59 Acetaminophen 325 Mg Tablet PO 03/15/25 21:12 Q6H PRN Fever >100.4 or pain Dextrose 25 ml 02/13/25 22:03 Dextrose 50%-Water Inj 50 Ml Syringe IV 03/15/25 22:02 Q15MIN PRN BG 50-70 responsive npo pt Dextrose 50 ml 02/13/25 22:03 Dextrose 50%-Water Inj 50 Ml Syringe IV 03/15/25 22:02 Q15MIN PRN BG <50 OR BG <70 & pt unresponsive Diphenhydramine HCl 25 mg 02/14/25 14:58 Diphenhydramine Inj 50 Mg/Ml Vial IV [id number] PRN MODERATE SEDATION Fentanyl Citrate 50 mcg 02/14/25 14:58 Fentanyl Cit Inj 50 Mcg/Ml Amp 2ml IV Q2M PRN MODERATE SEDATION Fludrocortisone Acetate 0.1 mg 02/14/25 06:00 02/14/25 07:24 Fludrocortisone Acetate 0.1 Mg Tablet PO 03/16/25 05:59 0.1 mg TID ERIC Administration Glucagon 1 mg 02/13/25 22:03 Glucagon Inj 1 Mg Vial IM Q15MIN PRN BG <70, and no IV access Heparin Sodium (Porcine) 5,000 unit 02/13/25 22:00 02/14/25 07:23 Heparin Sod Inj 5000 Unit/Ml Vial SC 02/27/25 21:59 5,000 unit Q8HR ERIC Administration Sodium Chloride 1,000 mls @ 50 mls/hr 02/13/25 21:15 02/13/25 23:22 Ns IV 03/15/25 21:14 50 mls/hr .Q20H ERCI Administration Insulin Human Lispro 0 unit 02/14/25 07:30 02/14/25 07:30 Insulin Lispro (Admelog) 1 Unit/0.01 Ml Unit SC 03/16/25 07:29 Not Given AC [facility] Protocol Meperidine HCl 25 mg 02/14/25 14:58 Meperidine Inj 50 Mg/Ml Vial IV Q2M PRN MODERATE SEDATION Midazolam HCl 2 mg 04/12/25 14:58 Midazolam Inj 1 Mg/Ml Vial 2 Ml IV Q2M PRN Moderate Sedation Midodrine 10 mg 02/13/25 22:00 02/14/25 07:24 Midodrine 5 Mg Tablet PO 03/15/25 21:59 10 mg TID ERIC Administration Nortriptyline HCl 25 mg 02/14/25 21:00 Nortriptyline Hcl 25 Mg Capsule PO 03/16/25 20:59 HS ERIC Ondansetron HCl 4 mg 02/13/25 21:59 Ondansetron Inj 2 Mg/Ml Inj 2 Ml IV 03/15/25 21:58 Q6HR PRN NAUSEA OR VOMITING Protocol Pantoprazole Sodium 40 mg 02/14/25 09:00 02/14/25 10:00 Pantoprazole Inj 40 Mg Vial IVP 03/16/25 08:59 40 mg QDAY ERIC Administration Plan 64-year-old male past medical history of right nephrectomy performed in 2020, ESRD on HD with right IJ catheter Tuesdays and Sunday, longstanding history of diabetes, hyperlipidemia, CRISTIANO using CPAP, BPH, s/p gastric bypass in 2022 presented to the hospital on 02/13/2025 with chief complaint of ground-level fall and intractable nausea and vomiting x 4 months ago. Admitted for workup of intractable nausea and vomiting. #Intractable nausea and vomiting #Likely related to possible gastric ulcer versus ?possible Esophageal stricture #History of gastric bypass in 2022 Patient reported to have 4-month history of intractable nausea and vomiting. He is only able to tolerate liquid diet and has not been taking any solid food. Passes bowel movement every other day and denied any blood in the stool. EGD was performed by his bariatric surgery team in [place] and he was found to have gastric ulcer and repeat EGD was planned and getting workup. In the ED, patient was mildly hypotensive, had regular heart rate afebrile and saturating well on room air. Labs showed normocytic anemia with hemoglobin 12.7. CT abdominal showed trace pericardial effusion old right sided rib fracture and mild diffuse thickening of urinary bladder. Grade 1 anterolisthesis L4 on L5. No free blood in the abdominal pelvis.Ultrasound of the abdomen on 12/09 showed moderate hepatomegaly. ? IV Protonix 40 mg once daily ? GI has been consulted, appreciate recommendations ? Endoscopy planned for today ? Gentle IV fluids NS at 50 cc/h ? Follow-up with electrolytes and labs ? Hypoglycemia protocol in place ? Refer to registered dietitian - H. pylori testing ordered, follow-up #Ground-level fall likely related to decreased p.o. intake #Syncope- ruled out Patient reported to have ground-level fall after tripping off on the carpet. EKG showed sinus rhythm with low voltage. As patient did not hit his head on the floor therefore head CT was not ordered. Patient is AOx3 and conscious. Denied any unconsciousness or syncope, chest pain or shortness of breath. Echocardiogram from 12/08/2024 showed EF 60%. Troponin I was 0.022 ? Fall prevention ? Physical therapy evaluation ? Gentle IV fluids ? Hypoglycemia protocol in place ? Midodrine 10 mg 3 times daily #ESRD on hemodialysis () #Hx of Right nephrectomy Patient reports to have his dialysis session on 02/12. He follows Dr. Chadwick as outpatient. Patient recently had a left AV fistula still not functional to be used and currently has a right IJ catheter for hemodialysis. Patient still makes urine. ? Engine Boss, Dr. Chadwick consulted for further recommendations and to manage dialysis ? Anticipate correction of electrolytes and kidney functions with dialysis ? Avoid nephrotoxic agents, renally dose medications, strict MARYANN's ? Resume dialysis inpatient as per Dr. Chadwick ? Resumed fludrocortisone 0.1 3 times daily #Anemia of chronic disease Anemia likely related to ESRD. Iron 54, TIBC 144, ferritin greater than 1650. ? PRBC if hemoglobin drops below 7 ? Daily CBC #History of type 2 diabetes on insulin -well-controlled Per chart review A1c 5.7 ? Blood sugar checks Q6 hourly as patient is n.p.o. ? Hypoglycemia protocol in place #History of CRISTIANO Patient uses CPAP at night ? Continue CPAP at night ? Resumed nortriptyline patient's home medication #History of hypertension ? Holding antihypertensive as patient's blood pressure is currently stable DVT prophylaxis: Heparin GI prophylaxis: Protonix Diet: N.p.o. pending EGD Lines: Peripheral IV Code status: Limited code Plan of care discussed with attending Dr. Luna. Dmitry Alexis MD PGY?1
--- NOTE | 2025-02-14 16:19 | PC.DIETICIAN ---
Nutrition Prescription: Start with clear liquids and advance as tolerated. Consider blenderized pureed with peptic ulcer disease modifier as goal diet.
[2025-02-14] MEDS: MG HYD/AL HYD/SIME (Maalox Reg) SUSP 30 ML UDC 15 ML PO (17:53)
[2025-02-14] MEDS: PANTOPRAZOLE INJ 40 MG VIAL IV (17:53)
[2025-02-14] MEDS: SUCRALFATE SUSP 1 GM/10 ML UDC PO (17:53)
[2025-02-14 19:55] LABS: Collection Type, Urine Clean Catch
[2025-02-14 20:14] LABS: Bilirubin,Urine 1+ (Negative); Blood,Urine Negative (Negative); Clarity,Urine Clear (Clear/Hazy); Color,Urine Yellow (Lt Yel-Yel); Culture Indicated,Urine Not Indicated; Glucose, Urine Trace (Negative); Hyaline Casts,Urine < 1 /hpf (0-1); Ketones,Urine Trace (Negative); Leukocyte Esterase,Urine Negative (Negative); Nitrite,Urine Negative (Negative); Protein,Urine 1+ (Neg - Trace); RBC,Urine 1 /hpf (0-3); Squamous Epithelial Cell,Urine 3 /hpf (0-5); Urobilinogen,Urine Negative mg/dL (0.0-1.0); WBC,Urine 2 /hpf (0-5)
--- NOTE | 2025-02-14 21:00 | PC.NURSE ---
Pt refused to use own cpap machine tonight.
[2025-02-14] MEDS: SODIUM CHLORIDE 0.9% 1000 ML 1,000 ML 50 ML IV (21:50)
[2025-02-14] MEDS: NORTRIPTYLINE HCL 25 MG CAPSULE PO (21:52)
[2025-02-15] VITALS (8 sets, daily range): BP systolic 105–127; BP diastolic 50–77; PULSE 72–94; RESP 16–18; TEMP 36.1–36.9; O2SAT 97–98
[2025-02-15] MEDS: MIDODRINE 5 MG TABLET 10 MG PO ×3 (05:32→21:59)
[2025-02-15] MEDS: FLUDROCORTISONE ACETATE 0.1 MG TABLET PO ×3 (05:33→21:58)
[2025-02-15] MEDS: HEPARIN SOD INJ 5000 UNIT/ML VIAL SC ×3 (05:35→22:11)
[2025-02-15] MEDS: SUCRALFATE 1 GM TABLET PO ×3 (06:13→17:29)
[2025-02-15 08:14] LABS: Basophils # (Auto) 0.1 Thou/mm3 (0.0-0.2); Basophils % (Auto) 1 % (0-2.5); Eosinophils # (Auto) 0.2 Thou/mm3 (0.0-0.5); Eosinophils % (Auto) 2 % (0-10); Hematocrit 37.6 % (41.0-53.0); Hemoglobin 12.9 g/dL (13.5-16.0); Immature Granulocytes % (Auto) 0 % (0-0); Immature Granulocytes Auto 0.02 Thou/mm3 (0.00-0.00); Lymphocytes # (Auto) 1.9 Thou/mm3 (1.0-4.8); Lymphocytes % (Auto) 22 % (10-50); Mean Corpuscular HGB Conc 34.3 g/dl (31.0-37.0); Mean Corpuscular Hemoglobin 32.7 pg (25.0-35.0); Mean Corpuscular Volume 95 fL (80-100); Monocytes % (Auto) 11 % (0-12); Neutrophils # (Auto) 5.5 Thou/mm3 (1.8-7.7); Neutrophils % (Auto) 63 % (37-80); Nucleated Red Blood Cell % 0 /100 WBC (0); Platelet Count 179 Thou/mm3 (140-440); RDW Standard Deviation 45.7 fL (35.1-43.9); Red Blood Count 3.94 Miln/mm3 (4.50-5.90); White Blood Count 8.7 Thou/mm3 (3.8-10.6)
[2025-02-15 08:27] LABS: Anion Gap 9 (7-16); BUN/Creatinine Ratio 4 Ratio (12-20); Blood Urea Nitrogen 18 mg/dL (9-23); Calcium 9.1 mg/dL (8.3-10.6); Carbon Dioxide 28.4 mMol/L (20.0-31.0); Chloride 102 mMol/L (98-107); Creatinine (Component) 4.4 mg/dL (0.6-1.3); Estimated Creatinine Clearance 16.6 mL/min (>60); Glucose 88 mg/dL (74-106); Magnesium 1.9 mg/dL (1.6-2.6); Osmolality,Calculated 278 (275-295); Phosphorous 3.1 mg/dL (2.4-5.1); Potassium 3.3 mMol/L (3.4-5.1); Sodium 139 mMol/L (136-145); eGFR 14 See Note
[2025-02-15] MEDS: PANTOPRAZOLE INJ 40 MG VIAL IV ×2 (08:57→21:58)
--- NOTE | 2025-02-15 10:16 | XR_ITS ---
Examination: AP right hip single view Technique one AP portable supine right hip single view Exam date and time: February 17, 2025 1050 hrs. Indications: Right hip pain with movement. Findings: Severe osteopenia. Mild to moderate hip joint narrowing. No fracture. Greater trochanteric bursitis right hip. Impression: Mild enlargement. No fracture Greater trochanteric bursitis right hip
[2025-02-15] MEDS: INSULIN LISPRO (AdmeLOG) 1 UNIT/0.01 ML UNIT SC (11:24)
--- NOTE | 2025-02-15 12:02 | ESDS_ITS ---
<Statement entered by Stella Luna MD - 02/20/25 12:57> I reviewed above note and agree with findings and plans. I have also personally examined the patient with medicine team and went over assessment and plan with medical team including ad operations intern and resident physician. Planned Discharge Date 02/15/25 DS: Providers Provider Date of admission: 02/13/25 21:13 Primary care physician: Sunil Chadwick MD Admitting Provider: Tray Ng MD Attending Provider on Admission: Tray Ng MD Consults: 02/13/25 18:10 Consult to Gastroenterology Stat Comment: Epigastric pain unable to eat Consulting Provider: Juan Fitzpatrick Consult to Nephrology Stat Comment: ESRD Consulting Provider: Sunil Chadwick 02/13/25 21:15 Consult to Nephrology Routine Comment: ESRD Consulting Provider: Sunil Chadwick 02/13/25 21:24 Referral Nutritional Services Routine Comment: 02/13/25 22:04 Referral Physical Therapy Routine Comment: Physician Instructions: 02/13/25 22:14 Referral Registered Dietitian Routine Comment: Intractle nausea/vomitng hx of gastric bypass 02/14/25 01:04 Referral Registered Dietitian Routine Comment: Attending Provider on DC: Italo Mitchell MD Discharging Provider: Italo Mitchell MD DS: Diagnosis Problem List Completed Was Problem List Reviewed/Reconciled?: Yes Hospital Course Hospital Course Hospital course: 64-year-old male past medical history of right nephrectomy performed in 2020, ESRD on HD with right IJ catheter Tuesdays and Sunday, longstanding history of diabetes, hyperlipidemia, CRISTIANO using CPAP, BPH, s/p gastric bypass in 2022 presented to the hospital on 02/13/2025 with chief complaint of ground-level fall and intractable nausea and vomiting x 4 months ago. Admitted for workup of intractable nausea and vomiting. [employer] Dr. Fitzpatrick was consulted, EGD was done on 02/14/2025 which showed stenotic gastro enterostomy junction with ulceration, large ulcer at the anastomotic site. Gastric stenosis at the anastomosis, dilated with balloon. Started on clear liquid diet, patient tolerated diet well. Started on Protonix twice daily, sucralfate and Maalox, plan to discharge the patient, and follow-up with gastroenterology in the next 2 weeks, patient may require repeat dilatation in 4 to 6 weeks. Patient was also complaining of right-sided hip pain along the thigh, ordered x-ray of right hip joint which was negative for fractures, showed bursitis of the greater trochanter. The patient is stable, afebrile and tolerating Per oral medications at the time of discharge. The patient understood and agreed to the treatment plan. Follow up with Primary care physician with labs within 3-5 days of discharge. If symptoms persist or worsen, return to the Emergency Department. #Intractable nausea and vomiting #gastric ulcer versus #gastro enterostomy junction Stenosis #History of gastric bypass in 2022 #Anastomotic site Ulcer #Ground-level fall likely related to decreased p.o. intake #Syncope- ruled out #ESRD on hemodialysis () #Hx of Right nephrectomy #Anemia of chronic disease #History of type 2 diabetes on insulin -well-controlled #History of CRISTIANO #History of hypertension # Bursitis hip joint Patient was also complaining of right-sided hip pain along the thigh, ordered x- ray of right hip joint which was negative for fractures, showed bursitis of the greater trochanter. - Tylenol for pain Plan of care discussed with attending Dr. Luna. Stephen pgy 2 Status at Discharge Overall status at discharge: patient is progressing back to baseline Time Spent with Patient Time attestation: Total time spent providing and/or coordinating discharge services: Time spent: Greater than 30 minutes Exam Vital Signs Temp Pulse Resp BP Pulse Ox O2 Del Method O2 Flow Rate 98.5 F 88 18 114/73 97 Room Air 3 02/15/25 08:00 02/15/25 08:00 02/15/25 08:00 02/15/25 08:00 02/15/25 08:00 02/15/25 08:00 02/14/25 15:35 Narrative Exam PE: Gen: Well-developed and well-nourished. Lethargic. HEENT: NCAT, PERRLA, EOMI, MMM, anicteric conjunctivae. CVS: normal S1 and S2. RRR. No M/R/G. Resp: CTA B/L. No rhonchi, rales, crackles or wheezing. Abd: soft, non-tender, non-distended. MSK: Good ROM in BUE & BLE. No edema or rash. small 1cm abrasion right lower extremity below the knee joint. no active bleeding. Neuro: CN II-XII grossly intact. Strength 5/5 in BUE & BLE. Alert and oriented x3. Psych: appropriate mood and affect. Discharge Plan Plan Patient Disposition: HOME (Self Care) Disposition Comment: Stable Care Plan Goals: Please follow up with refractory tile helper Dr Fitzpatrick within 2 weeks of discharge from hospital, new medications started include Maalox, pantoprazole, sucralfate for ulceration in your stomach. Follow up with Primary care physician with labs within 3-5 days of discharge. If symptoms persist or worsen, return to the Emergency Department. Prescriptions/Referrals Prescriptions/Med Rec: New alum-mag hydroxide-simeth [Maalox Advanced] 200-200-20 mg/5 mL suspension 10 ml PO QID Qty: 3000 0RF Rx Instructions: administer between meals and at bedtime sucralfate 100 mg/mL suspension 7.5 ml PO QID Qty: 1000 0RF Rx Instructions: swish in mouth and swallow; use after food/drink pantoprazole [Protonix] 40 mg tablet,delayed release (DR/EC) 40 mg PO BID Qty: 30 0RF Continued nortriptyline 25 mg capsule 25 mg PO HS cholecalciferol (vitamin D3) [Vitamin D3] 2,000 UNIT capsule 2,000 unit PO QDAY Qty: 0 vitamin B complex Tablet 1 tab PO QDAY hydroxyzine HCl 10 mg tablet 10 mg PO QPM Patient Comments: TAKE 1 TABLET BY MOUTH NIGHTLY midodrine 10 mg Tablet 10 mg PO TID Rx Instructions: do not give last dose of day after 6PM or within 4 hrs of bedtime insulin aspart U-100 [Novolog FlexPen U-100 Insulin] 100 unit/mL (3 mL) insulin pen 5 unit SUBCUT TID Patient Comments: INJECT 5 UNIT SUBCUTANEOUSLY 3 TIMES A DAY BEFORE MEALS sevelamer carbonate 800 mg tablet 800 mg PO .with meals Patient Comments: TAKE 3 TABLETS BY MOUTH 3 TIMES A DAY WITH MEALS albuterol sulfate 90 mcg/actuation HFA aerosol inhaler 2 puff inhalation Q6H PRN (Reason: shortness of breath or wheezing) Qty: 6.7 0RF Discontinued amoxicillin-pot clavulanate 250-125 mg tablet 1 tab PO QDAY Qty: 3 0RF Referrals: Sunil Chadwick MD [Primary Care Provider] - Patient/Caregiver Discharge Instructions Education Materials: Gastric Duodenal Ulcer Ch Print Language: Estonian Stand Alone Forms: Dine perfect., Patient Portal Info Letter Discharge Order Discharge Orders: Discharge (Routine); Ordered 02/15/25 Ordered By: Sera Freitas Quality Discharge Quality Measures VTE prophylaxis
--- NOTE | 2025-02-15 13:53 | PD.IMPROG ---
Documentation for date of: 02/15/25 Subjective Subjective Interval history: Patient eating better after endoscopy and dilatation of the stenotic site of the anastomosis Would like to see the patient back in follow-up in 1 week Exam Vital Signs Temp Pulse Resp BP Pulse Ox O2 Del Method O2 Flow Rate 98.5 F 88 18 114/73 97 Room Air 3 02/15/25 08:00 02/15/25 08:00 02/15/25 08:00 02/15/25 08:00 02/15/25 08:00 02/15/25 08:00 02/14/25 15:35 Objective Labs 02/15/25 07:35 02/15/25 07:35 Labs: Laboratory Results - last 24 hr 02/13/25 02/15/25 18:00 07:35 WBC 8.7 RBC 3.94 L Hgb 12.9 L Hct 37.6 L MCV 95 MCH 32.7 MCHC 34.3 RDW Std Deviation 45.7 H Plt Count 179 Neut % (Auto) 63 Lymph % (Auto) 22 [place] % (Auto) 11 Eos % (Auto) 2 Baso % (Auto) 1 Neut # (Auto) 5.5 Lymph # (Auto) 1.9 [place] # (Auto) 1.0 H Eos # (Auto) 0.2 Baso # (Auto) 0.1 Immature Gran # (Auto) 0.02 H Absolute Nucleated RBC 0.00 Immature Gran % 0 Nucleated RBC % 0 Sodium 139 Potassium 3.3 L Chloride 102 Carbon Dioxide 28.4 Anion Gap 9 BUN 18 Creatinine 4.4 H* Estim Creat Clear Calc 16.6 L eGFR 14 L* BUN/Creatinine Ratio 4 L Glucose 88 Calculated Osmolality 278 Calcium 9.1 Phosphorus 3.1 Magnesium 1.9 Ur Collection Type Clean Catch Urine Color Yellow Urine Clarity Clear Urine pH 7.0 Ur Specific [place] 1.020 Urine Protein 1+ A Urine Glucose (UA) Trace Urine Ketones Trace Urine Blood Negative Urine Nitrite Negative Urine Bilirubin 1+ A Urine Urobilinogen (Auto) Negative Ur Leukocyte Esterase Negative Urine RBC 1 Urine WBC 2 Ur Squamous Epith Cells 3 Urine Bacteria None Hyaline Casts < 1 Ur Culture Indicated? Not Indicated Impressions Impression: # Anastomotic site ulceration with stenosis requiring endoscopic dilatation Follow-up outpatient Assessment & Plan A&P Narrative # Nausea vomiting post-bariatric procedure most likely stenosis with ulceration at the anastomotic site # Abnormal weight loss most likely due to bariatric surgical procedure but complicated by persistent nausea vomiting and inability to eat solid food Plan Consent obtained for fiberoptic esophagogastroduodenoscopy with possible biopsy possible therapeutic intervention under intravenous moderate sedation Other medical problems include End-stage renal disease on hemodialysis Diabetes mellitus type 2 Chronic hypotension Thank you very much for the opportunity to participate in the care of this patient Time Spent With Patient Time: Total time spent is greater than 50% in coordination of care (as documented) at patient's floor/unit and/or counseling patient:
[2025-02-15] MEDS: SODIUM CHLORIDE 0.9% 1000 ML 1,000 ML 50 ML IV (17:29)
--- NOTE | 2025-02-15 17:42 | PC.NURSE ---
Spoke with pt sister Maisha regarding pt discharge. Maisha states she is physically unable to care for pt in his current state d/t his inability to ambulate or bear weight on his right side without significant assistance. Maisha is suggesting SNF placement for rehab. MD Freitas notified.
--- NOTE | 2025-02-15 17:47 | XR_ITS ---
Examination: Right femur 2 views Technique one AP lateral right femur 2 views Exam date and time: February 15, 2025 1849 hours INDICATIONS: Right femur pain today. FINDINGS: Moderate narrowing right hip joint No hip fracture or hip dislocation Greater trochanteric bursitis right hip Shaft of the femur intact IMPRESSION: Greater trochanteric bursitis right hip
[2025-02-15] MEDS: NORTRIPTYLINE HCL 25 MG CAPSULE PO (21:58)
--- NOTE | 2025-02-15 22:23 | PRELIM_ITS ---
Radiographs of the right femur (2 views). February 15, 2025 1849 hours Clinical history: pain Findings: There is no evidence of fracture or dislocation. No focal or diffuse bony abnormality is identified. The visualized soft tissues are normal. Impression: No fracture or dislocation. Report Electronically Signed By: Kina Aldridge 02/15/2025 10:22:45 PM [EST]
[2025-02-16] VITALS (23 sets, daily range): BP systolic 92–126; BP diastolic 63–84; PULSE 71–103; RESP 16–18; TEMP 35.6–36.6; O2SAT 95–98
[2025-02-16 01:06] LABS: Folate 10.66 ng/mL (>5.38); Vitamin B12 1244 pg/mL (211-911); Vitamin D 25 Hydroxy Total 105.1 ng/mL (7.3-40.2)
[2025-02-16 05:33] LABS: Basophils # (Auto) 0.1 Thou/mm3 (0.0-0.2); Basophils % (Auto) 1 % (0-2.5); Eosinophils # (Auto) 0.2 Thou/mm3 (0.0-0.5); Eosinophils % (Auto) 3 % (0-10); Hematocrit 38.9 % (41.0-53.0); Immature Granulocytes % (Auto) 0 % (0-0); Immature Granulocytes Auto 0.02 Thou/mm3 (0.00-0.00); Lymphocytes # (Auto) 2.7 Thou/mm3 (1.0-4.8); Lymphocytes % (Auto) 31 % (10-50); Mean Corpuscular HGB Conc 33.4 g/dl (31.0-37.0); Mean Corpuscular Hemoglobin 32.4 pg (25.0-35.0); Mean Corpuscular Volume 97 fL (80-100); Monocytes # (Auto) 1.2 Thou/mm3 (0.0-0.8); Monocytes % (Auto) 13 % (0-12); Neutrophils # (Auto) 4.7 Thou/mm3 (1.8-7.7); Neutrophils % (Auto) 53 % (37-80); Nucleated Red Blood Cell % 0 /100 WBC (0); Platelet Count 185 Thou/mm3 (140-440); RDW Standard Deviation 45.5 fL (35.1-43.9); Red Blood Count 4.01 Miln/mm3 (4.50-5.90); White Blood Count 8.8 Thou/mm3 (3.8-10.6)
[2025-02-16 05:54] LABS: Anion Gap 10 (7-16); BUN/Creatinine Ratio 6 Ratio (12-20); Blood Urea Nitrogen 22 mg/dL (9-23); Calcium 8.6 mg/dL (8.3-10.6); Carbon Dioxide 24.5 mMol/L (20.0-31.0); Chloride 103 mMol/L (98-107); Creatinine (Component) 3.9 mg/dL (0.6-1.3); Estimated Creatinine Clearance 18.8 mL/min (>60); Glucose 108 mg/dL (74-106); Magnesium 1.8 mg/dL (1.6-2.6); Osmolality,Calculated 278 (275-295); Phosphorous 2.1 mg/dL (2.4-5.1); Potassium 3.3 mMol/L (3.4-5.1); Sodium 137 mMol/L (136-145); eGFR 17 See Note
[2025-02-16] MEDS: MIDODRINE 5 MG TABLET 10 MG PO ×2 (06:12→21:33)
[2025-02-16] MEDS: FLUDROCORTISONE ACETATE 0.1 MG TABLET PO ×2 (06:13→21:34)
[2025-02-16] MEDS: SUCRALFATE 1 GM TABLET PO ×4 (06:13→23:44)
[2025-02-16] MEDS: HEPARIN SOD INJ 5000 UNIT/ML VIAL SC ×2 (06:14→21:44)
[2025-02-16] MEDS: PANTOPRAZOLE INJ 40 MG VIAL IV ×2 (08:22→21:41)
--- NOTE | 2025-02-16 10:15 | CHAP ---
Patient was visited by the Spiritual Care Volunteer who prayed for them. (Volunteer was in the hospital from 09:00-10:15.)
--- NOTE | 2025-02-16 11:21 | PC.CC ---
Pt entered into [facility], referrals need to be sent
[2025-02-16] MEDS: INSULIN LISPRO (AdmeLOG) 1 UNIT/0.01 ML UNIT SC (11:49)
[2025-02-16] MEDS: HYDROcodone/APAP 5/325 TABLET 1 TAB PO (11:49)
--- NOTE | 2025-02-16 12:36 | PC.CC ---
PASRR Level 1 completed and downloaded. Level 2 not required.
--- NOTE | 2025-02-16 14:17 | PC.SS ---
SS spoke to pt sister Maisha Mendoza [phone] in regards to DC plan. Per Maisha pt needs to go to SNF for short term rehab until he is able to transfer independently and walk with a walker without assistance or supervision. Per Maisha she will be visiting [facility] at 4pm and give us an update on if she chooses this facility.
--- NOTE | 2025-02-16 14:47 | ESDS_ITS ---
<Statement entered by Stella Luna MD - 02/20/25 12:59> I reviewed above note and agree with findings and plans. I have also personally examined the patient with medicine team and went over assessment and plan with medical team including internet network specialist and resident physician. <Statement entered by Dmitry Alexis MD - 02/17/25 16:00> Addendum: Patient initially scheduled to be /, discharge was delayed due to difficulty arranging SNF placement. Please see updated discharge summary on 02/17. <Statement entered by Lindsey Andrews MD - 02/16/25 15:04> I discussed with and supervised the internet network specialist physician who took care of this patient. I personally saw and examined the patient and discussed the assessment and plan with the entire medicine team, including my attending , I agree with the assessment and plan as documented below Lindsey Andrews M.D. PGY-2 Disclaimer: Despite multiple revisions, due to the dictation software being used, the document bellow may not be free of grammatical errors including phonetic/typographic errors. However, this does not deter from our commitment to providing health care in the patient's best interest in mind. Planned Discharge Date 02/16/25 DS: Providers Provider Date of admission: 02/13/25 21:13 Primary care physician: Sunil Chadwick MD Admitting Provider: Tray Ng MD Attending Provider on Admission: Stella Luna MD Consults: 02/13/25 18:10 Consult to Gastroenterology Stat Comment: Epigastric pain unable to eat Consulting Provider: Juan Fitzpatrick Consult to Nephrology Stat Comment: ESRD Consulting Provider: Sunil Chadwick 02/13/25 21:15 Consult to Nephrology Routine Comment: ESRD Consulting Provider: Sunil Chadwick 02/13/25 21:24 Referral Nutritional Services Routine Comment: 02/13/25 22:04 Referral Physical Therapy Routine Comment: Physician Instructions: 02/13/25 22:14 Referral Registered Dietitian Routine Comment: Intractle nausea/vomitng hx of gastric bypass 02/14/25 01:04 Referral Registered Dietitian Routine Comment: Attending Provider on DC: Stella Luna MD Discharging Provider: Dmitry Alexis MD DS: Diagnosis Problem List Completed Was Problem List Reviewed/Reconciled?: Yes Hospital Course Hospital Course Hospital course: 64-year-old male past medical history of right nephrectomy performed in 2020, ESRD on HD with right IJ catheter Tuesdays and Sunday, longstanding history of diabetes, hyperlipidemia, CRISTIANO using CPAP, BPH, s/p gastric bypass in 2022 presented to the hospital on 02/13/2025 with chief complaint of ground-level fall and intractable nausea and vomiting x 4 months ago. Admitted for workup of intractable nausea and vomiting. [employer] Technician Dr. Fitzpatrick was consulted, EGD was done on 02/14/2025 which showed stenotic gastro enterostomy junction with ulceration, large ulcer at the anastomotic site. Gastric stenosis at the anastomosis, dilated with balloon. Started on clear liquid diet, patient tolerated diet well. Started on Protonix twice daily, sucralfate and Maalox, plan to discharge the patient, and follow-up with gastroenterology in the next 2 weeks, patient may require repeat dilatation in 4 to 6 weeks. Patient was also complaining of right-sided hip pain along the thigh, ordered x-ray of right hip joint which was negative for fractures, showed bursitis of the greater trochanter. The patient is stable, afebrile and tolerating Per oral medications at the time of discharge. The patient understood and agreed to the treatment plan. Follow up with Primary care physician with labs within 3-5 days of discharge. If symptoms persist or worsen, return to the Emergency Department. #Intractable nausea and vomiting #gastric ulcer versus #gastro enterostomy junction Stenosis #History of gastric bypass in 2022 #Anastomotic site Ulcer #Ground-level fall likely related to decreased p.o. intake #Syncope- ruled out #ESRD on hemodialysis () #Hx of Right nephrectomy #Anemia of chronic disease #History of type 2 diabetes on insulin -well-controlled #History of CRISTIANO #History of hypertension # Bursitis hip joint Patient was also complaining of right-sided hip pain along the thigh, ordered x- ray of right hip joint which was negative for fractures, showed bursitis of the greater trochanter. - Tylenol for pain Plan of care discussed with senior resident Dr. Andrews PGY?[address] Luna. Dmitry Alexis MD PGY?1 Status at Discharge Overall status at discharge: patient is progressing back to baseline Time Spent with Patient Time attestation: Total time spent providing and/or coordinating discharge services: Time spent: Greater than 30 minutes Home Health Home Health Referral Orders: 02/16/25 10:50 Home Health Referral Routine Reason For Exam: PT Home-Bound The patient must either because of illness or injury, need the aid of supportive devices such as crutches, canes, wheelchairs, and walkers; the use of special transportation; or the assistance of another person in order to leave their place of residence; OR have a condition such that leaving his or her home is medically contraindicated. In addition, the patient also meets the following criteria: patient is normally unable to leave the home and leaving home requires considerable taxing effort. Addendum to Home Health Certification Practitioner's Certification: I certify that the patient has been under my care in the hospital and the care of attending physician (see below). We had a [id number] encounter on (see date below). My clinical findings indicate that the patient is home bound per the above criteria and the Home Health Services noted in these orders are medically necessary. The primary reason for the [id number]-[id number] encounter is related to the fact that the patient requires home health services. Date Certifying Gnyj-qw-Tbua Physician Encounter: 02/13/25 Physician's Name who will Assume Oversight for Services: Sunil Chadwick Physician's Phone No.who will Assume Oversight for Service: POLICE SERGEANT - Community Resources: No PT to Evaluate: Yes PT to evaluate and provide a treatmnet plan to increase patient's mobility and strength. Wound Care: No IV Therapy: No RN Safety Evaluation: Yes RN to evaluate and create a plan of care that will produce positive outcomes. Palliative Treatment: No Palliative treatment and evaluate the need for hospice. Home Health Aide - Personal Care: No Home Health Aide to assist with any ADL's. Exam Vital Signs Temp Pulse Resp BP Pulse Ox O2 Del Method O2 Flow Rate 96.8 F 90 16 104/73 95 Room Air 3 02/16/25 13:58 02/16/25 14:30 02/16/25 13:58 02/16/25 14:30 02/16/25 13:58 02/16/25 11:48 02/14/25 15:35 Narrative Exam PE: Gen: Well-developed and well-nourished. HEENT: NCAT, PERRLA, EOMI, MMM, anicteric conjunctivae. CVS: normal S1 and S2. RRR. No M/R/G. Resp: CTA B/L. No rhonchi, rales, crackles or wheezing. Abd: soft, non-tender, non-distended. MSK: Good ROM in BUE & BLE. No edema or rash. small 1cm abrasion right lower extremity below the knee joint. no active bleeding. Neuro: CN II-XII grossly intact. Strength 5/5 in BUE & BLE. Alert and oriented x3. Psych: appropriate mood and affect. Discharge Plan Plan Patient Disposition: Home w/HOME HEALTH Disposition Comment: Stable Patient condition on transfer: Stable Care Plan Goals: Please follow up with online marketing specialist Dr Fitzpatrick within 2 weeks of discharge from hospital, new medications started include Maalox, pantoprazole, sucralfate for anastomotic site ulceration. Follow up with Primary care physician with labs within 3-5 days of discharge. If symptoms persist or worsen, return to the Emergency Department. Prescriptions/Referrals Prescriptions/Med Rec: New alum-mag hydroxide-simeth [Maalox Advanced] 200-200-20 mg/5 mL suspension 10 ml PO QID Qty: 3000 0RF Rx Instructions: administer between meals and at bedtime pantoprazole [Protonix] 40 mg tablet,delayed release (DR/EC) 40 mg PO BID Qty: 30 0RF sucralfate 1 gram Tablet 1 g PO Q6HR 30 Days Qty: 120 0RF Continued nortriptyline 25 mg capsule 25 mg PO HS cholecalciferol (vitamin D3) [Vitamin D3] 2,000 UNIT capsule 2,000 unit PO QDAY Qty: 0 vitamin B complex Tablet 1 tab PO QDAY hydroxyzine HCl 10 mg tablet 10 mg PO QPM Patient Comments: TAKE 1 TABLET BY MOUTH NIGHTLY midodrine 10 mg Tablet 10 mg PO TID Rx Instructions: do not give last dose of day after 6PM or within 4 hrs of bedtime insulin aspart U-100 [Novolog FlexPen U-100 Insulin] 100 unit/mL (3 mL) insulin pen 5 unit SUBCUT TID Patient Comments: INJECT 5 UNIT SUBCUTANEOUSLY 3 TIMES A DAY BEFORE MEALS sevelamer carbonate 800 mg tablet 800 mg PO .with meals Patient Comments: TAKE 3 TABLETS BY MOUTH 3 TIMES A DAY WITH MEALS albuterol sulfate 90 mcg/actuation HFA aerosol inhaler 2 puff inhalation Q6H PRN (Reason: shortness of breath or wheezing) Qty: 6.7 0RF Discontinued amoxicillin-pot clavulanate 250-125 mg tablet 1 tab PO QDAY Qty: 3 0RF Referrals: Sunil Chadwick MD [Primary Care Provider] - Patient/Caregiver Discharge Instructions Education Materials: Gastric Duodenal Ulcer Ch Print Language: Lao Stand Alone Forms: [facility] Award Info., Patient Portal Info Letter Discharge Order Discharge Orders: Discharge (Routine); Ordered 02/16/25 Ordered By: Sera Freitas Quality Discharge Quality Measures VTE prophylaxis
--- NOTE | 2025-02-16 14:50 | PC.SS ---
Dmitry Gonzalez is a 64-year-old male admitted to [facility] for Dysphagia. SS conducted bedside contact with the patient to complete initial assessment and to discuss discharge planning.? Patient confirmed demographic information. Patient identifies his sister Maisha Mendoza [phone] as his surrogate decision maker. Patient resides at home with his sister. Pt states he is typically able to complete all ADL?s independently, no need for any source of DME but after his fall he is unable to. Pts PCP is Dr. Sunil Chadwick (last visit about 32 weeks ago) and pharmacy of choice is [facility]. DC option discussed and pt wishes to return home, SS informed pt that PT will work with him and if SNF is recommended will he be open and he stated it is up to his sister. SS spoke to pt sister Maisha, who reported that she would like him to DC to SNF for short term. Pt will need transportation upon DC. No further intervention required at this time, social work job titles would be available to address any further concerns. DC Plan: SNF Contact: SisterMaisha
--- NOTE | 2025-02-16 17:39 | PD.IMPROG ---
Documentation for date of: 02/16/25 Subjective Subjective Interval history: Patient doing very well postdilatation. Will see him back in follow-up in couple weeks in the office Exam Vital Signs Temp Pulse Resp BP Pulse Ox O2 Del Method O2 Flow Rate 97.5 F 93 16 121/78 97 Room Air 3 02/16/25 17:14 02/16/25 17:14 02/16/25 17:14 02/16/25 17:14 02/16/25 17:14 02/16/25 11:48 02/14/25 15:35 Objective Labs 02/16/25 04:38 02/16/25 04:38 Labs: Laboratory Results - last 24 hr 02/13/25 02/16/25 17:45 04:38 WBC 8.8 RBC 4.01 L Hgb 13.0 L Hct 38.9 L MCV 97 MCH 32.4 MCHC 33.4 RDW Std Deviation 45.5 H Plt Count 185 Neut % (Auto) 53 Lymph % (Auto) 31 [place] % (Auto) 13 H Eos % (Auto) 3 Baso % (Auto) 1 Neut # (Auto) 4.7 Lymph # (Auto) 2.7 [place] # (Auto) 1.2 H Eos # (Auto) 0.2 Baso # (Auto) 0.1 Immature Gran # (Auto) 0.02 H Absolute Nucleated RBC 0.00 Immature Gran % 0 Nucleated RBC % 0 Sodium 137 Potassium 3.3 L Chloride 103 Carbon Dioxide 24.5 Anion Gap 10 BUN 22 Creatinine 3.9 H D Estim Creat Clear Calc 18.8 L eGFR 17 L BUN/Creatinine Ratio 6 L Glucose 108 H Calculated Osmolality 278 Calcium 8.6 Phosphorus 2.1 L Magnesium 1.8 Vitamin B12 1244 H 25-OH Vitamin D Total 105.1 H Folate 10.66 Impressions Impression: # anastomotic site stricture status post balloon dilatation doing well Outpatient follow-up Assessment & Plan A&P Narrative # Nausea vomiting post-bariatric procedure most likely stenosis with ulceration at the anastomotic site # Abnormal weight loss most likely due to bariatric surgical procedure but complicated by persistent nausea vomiting and inability to eat solid food Plan Consent obtained for fiberoptic esophagogastroduodenoscopy with possible biopsy possible therapeutic intervention under intravenous moderate sedation Other medical problems include End-stage renal disease on hemodialysis Diabetes mellitus type 2 Chronic hypotension Thank you very much for the opportunity to participate in the care of this patient Time Spent With Patient Time: Total time spent is greater than 50% in coordination of care (as documented) at patient's floor/unit and/or counseling patient:
[2025-02-16] MEDS: SODIUM CHLORIDE 0.9% 1000 ML 1,000 ML 50 ML IV (20:13)
[2025-02-16] MEDS: NORTRIPTYLINE HCL 25 MG CAPSULE PO (21:34)
[2025-02-17] VITALS: BP 116/75; PULSE 92; RESP 17; TEMP 35.7; O2SAT 98
[2025-02-17] MEDS: MELATONIN 3 MG TABLET 6 MG PO
[2025-02-17 04:00] VITALS: BP 115/70; PULSE 95; RESP 18; TEMP 36.3; O2SAT 98
[2025-02-17 05:56] VITALS: BP 112/72; PULSE 92
[2025-02-17] MEDS: MIDODRINE 5 MG TABLET 10 MG PO (05:56)
[2025-02-17] MEDS: FLUDROCORTISONE ACETATE 0.1 MG TABLET PO (05:56)
[2025-02-17] MEDS: SUCRALFATE 1 GM TABLET PO ×2 (05:57→11:20)
[2025-02-17] MEDS: HEPARIN SOD INJ 5000 UNIT/ML VIAL SC (05:59)
[2025-02-17 07:30] VITALS: BP 109/70; PULSE 92; RESP 18; TEMP 36.2; O2SAT 97
--- NOTE | 2025-02-17 08:19 | PC.SS ---
SS made over the phone contact with Maisha, pts sister Maisha Mendoza [phone] to inquire on snf choice. Per Maisha she wants pt to do to [facility] and Neris from [facility] will come to a bedside with pt this morning.
[2025-02-17] MEDS: PANTOPRAZOLE INJ 40 MG VIAL IV (08:44)
--- NOTE | 2025-02-17 10:20 | PC.SS ---
Addendum entered by Kenia Perez 02/17/25 10:29: SS received a call from Maisha, SS explained pt insurance barrier for transport. Maisha stated she can transport him as long as someone can assist him getting into car and out at facility. SS updated Neris at [facility] pt will be picked up at bout 1300. Betsy Mcintyre updated and Lennie Original Note: SS met with pt at to discuss DC planning, pt was visited by Neris from . Pt reports he is in agreement to [facility] for short term rehab. SS attempted to call pt sister Maisha to update her, no answer. VM left.
--- NOTE | 2025-02-17 11:02 | CHAP ---
Patient was visited by a Spiritual Care Volunteer on 02/17/2025 between 0900 and 0920 and received comfort, encouragement and/or prayer.
[2025-02-17 11:37] VITALS: BP 95/74; PULSE 86; RESP 18; TEMP 36.2; O2SAT 95
--- NOTE | 2025-02-17 12:08 | PC.NURSE ---
gave report to Osmar at [facility]
--- NOTE | 2025-02-17 13:25 | ESDS_ITS ---
<Statement entered by Stella Luna MD - 02/24/25 13:47> I reviewed above note and agree with findings and plans. I have also personally examined the patient with medicine team and went over assessment and plan with medical team including training intern and resident physician. <Statement entered by Lindsey Andrews MD - 02/17/25 13:34> I discussed with and supervised the training intern physician who took care of this patient. I personally saw and examined the patient and discussed the assessment and plan with the entire medicine team, including my attending , I agree with the assessment and plan as documented below Lindsey Andrews M.D. PGY-2 Disclaimer: Despite multiple revisions, due to the dictation software being used, the document bellow may not be free of grammatical errors including phonetic/typographic errors. However, this does not deter from our commitment to providing health care in the patient's best interest in mind. Planned Discharge Date 02/17/25 DS: Providers Provider Date of admission: 02/13/25 21:13 Primary care physician: Sunil Chadwick MD Admitting Provider: Tray Ng MD Attending Provider on Admission: Stella Luna MD Consults: 02/13/25 18:10 Consult to Gastroenterology Stat Comment: Epigastric pain unable to eat Consulting Provider: Juan Fitzpatrick Consult to Nephrology Stat Comment: ESRD Consulting Provider: Sunil Chadwick 02/13/25 21:15 Consult to Nephrology Routine Comment: ESRD Consulting Provider: Sunil Chadwick 02/13/25 21:24 Referral Nutritional Services Routine Comment: 02/13/25 22:04 Referral Physical Therapy Routine Comment: Physician Instructions: 02/13/25 22:14 Referral Registered Dietitian Routine Comment: Intractle nausea/vomitng hx of gastric bypass 02/14/25 01:04 Referral Registered Dietitian Routine Comment: Attending Provider on DC: Stella Luna MD Discharging Provider: Dmitry Alexis MD DS: Diagnosis Problem List Completed Was Problem List Reviewed/Reconciled?: Yes Hospital Course Hospital Course Hospital course: 64-year-old male past medical history of right nephrectomy performed in 2020, ESRD on HD with right IJ catheter Tuesdays and Sunday, longstanding history of diabetes, hyperlipidemia, CRISTIANO using CPAP, BPH, s/p gastric bypass in 2022 presented to the hospital on 02/13/2025 with chief complaint of ground-level fall and intractable nausea, admitted for further workup. Patient struck liquid diet. Received EGD which showed stenosis of the GE junction, treated with dilation, and several ulcers. Patient treated with Maalox, sucralfate, Protonix. Recommend follow-up in a few weeks with GI for further evaluation/management. Patient cleared for discharge from GI perspective. Pat ient medically stable and cleared for discharge. Discharge plan: Please follow up with point of sale associate Dr Fitzpatrick within 2 weeks of discharge from hospital, new medications started include Maalox, pantoprazole, sucralfate for anastomotic site ulceration. Follow up with Primary care physician with labs within 3-5 days of discharge. If symptoms persist or worsen, return to the Emergency Department. Diagnoses: #Intractable nausea and vomiting #gastric ulcer versus #gastro enterostomy junction Stenosis #History of gastric bypass in 2022 #Anastomotic site Ulcer #Ground-level fall likely related to decreased p.o. intake #Syncope- ruled out #ESRD on hemodialysis () #Hx of Right nephrectomy #Anemia of chronic disease #History of type 2 diabetes on insulin -well-controlled #History of CRISTIANO #History of hypertension #Bursitis hip joint Plan of care discussed with senior resident Dr. Andrews PGY?[address] Luna. Dmitry Alexis MD PGY?1 Status at Discharge Overall status at discharge: patient is progressing back to baseline Time Spent with Patient Time attestation: Total time spent providing and/or coordinating discharge services: Time spent: Greater than 30 minutes Home Health Home Health Referral Orders: 02/16/25 10:50 Home Health Referral Routine Reason For Exam: PT Home-Bound The patient must either because of illness or injury, need the aid of supportive devices such as crutches, canes, wheelchairs, and walkers; the use of special transportation; or the assistance of another person in order to leave their place of residence; OR have a condition such that leaving his or her home is medically contraindicated. In addition, the patient also meets the following criteria: patient is normally unable to leave the home and leaving home requires considerable taxing effort. Addendum to Home Health Certification Practitioner's Certification: I certify that the patient has been under my care in the hospital and the care of attending physician (see below). We had a [id number]-ur-[id number] encounter on (see date below). My clinical findings indicate that the patient is home bound per the above criteria and the Home Health Services noted in these orders are medically necessary. The primary reason for the [id number] encounter is related to the fact that the patient requires home health services. Date Certifying Qksb-ue-Kgki Physician Encounter: 02/13/25 Physician's Name who will Assume Oversight for Services: Sunil Chadwick Physician's Phone No.who will Assume Oversight for Service: SINGLE ENDING MACHINE OPERATOR - Community Resources: No PT to Evaluate: Yes PT to evaluate and provide a treatmnet plan to increase patient's mobility and strength. Wound Care: No IV Therapy: No RN Safety Evaluation: Yes RN to evaluate and create a plan of care that will produce positive outcomes. Palliative Treatment: No Palliative treatment and evaluate the need for hospice. Home Health Aide - Personal Care: No Home Health Aide to assist with any ADL's. Exam Vital Signs Temp Pulse Resp BP Pulse Ox O2 Del Method O2 Flow Rate 97.2 F 86 18 95/74 95 Room Air 3 02/17/25 11:37 02/17/25 11:37 02/17/25 11:37 02/17/25 11:37 02/17/25 11:37 02/17/25 11:37 02/14/25 15:35 Narrative Exam PE: Gen: Well-developed and well-nourished. HEENT: NCAT, PERRLA, EOMI, MMM, anicteric conjunctivae. CVS: normal S1 and S2. RRR. No M/R/G. Resp: CTA B/L. No rhonchi, rales, crackles or wheezing. Abd: soft, non-tender, non-distended. MSK: Good ROM in BUE & BLE. No edema or rash. small 1cm abrasion right lower extremity below the knee joint. no active bleeding. Neuro: CN II-XII grossly intact. Strength 5/5 in BUE & BLE. Alert and oriented x3. Psych: appropriate mood and affect. Discharge Plan Plan Patient Disposition: Home w/HOME HEALTH Disposition Comment: Stable Patient condition on transfer: Stable Care Plan Goals: Please follow up with point of sale associate Dr Fitzpatrick within 2 weeks of discharge from hospital, new medications started include Maalox, pantoprazole, sucralfate for anastomotic site ulceration. Follow up with Primary care physician with labs within 3-5 days of discharge. If symptoms persist or worsen, return to the Emergency Department. Prescriptions/Referrals Prescriptions/Med Rec: New alum-mag hydroxide-simeth [Maalox Advanced] 200-200-20 mg/5 mL suspension 10 ml PO QID Qty: 3000 0RF Rx Instructions: administer between meals and at bedtime pantoprazole [Protonix] 40 mg tablet,delayed release (DR/EC) 40 mg PO BID Qty: 30 0RF sucralfate 1 gram Tablet 1 g PO Q6HR 30 Days Qty: 120 0RF Continued nortriptyline 25 mg capsule 25 mg PO HS cholecalciferol (vitamin D3) [Vitamin D3] 2,000 UNIT capsule 2,000 unit PO QDAY Qty: 0 vitamin B complex Tablet 1 tab PO QDAY hydroxyzine HCl 10 mg tablet 10 mg PO QPM Patient Comments: TAKE 1 TABLET BY MOUTH NIGHTLY midodrine 10 mg Tablet 10 mg PO TID Rx Instructions: do not give last dose of day after 6PM or within 4 hrs of bedtime insulin aspart U-100 [Novolog FlexPen U-100 Insulin] 100 unit/mL (3 mL) insulin pen 5 unit SUBCUT TID Patient Comments: INJECT 5 UNIT SUBCUTANEOUSLY 3 TIMES A DAY BEFORE MEALS sevelamer carbonate 800 mg tablet 800 mg PO .with meals Patient Comments: TAKE 3 TABLETS BY MOUTH 3 TIMES A DAY WITH MEALS albuterol sulfate 90 mcg/actuation HFA aerosol inhaler 2 puff inhalation Q6H PRN (Reason: shortness of breath or wheezing) Qty: 6.7 0RF Discontinued amoxicillin-pot clavulanate 250-125 mg tablet 1 tab PO QDAY Qty: 3 0RF Referrals: Sunil Chadwick MD [Primary Care Provider] - Patient/Caregiver Discharge Instructions Education Materials: Gastric Duodenal Ulcer Ch Print Language: Khmer Stand Alone Forms: [facility] Award Info., Patient Portal Info Letter Discharge Order Discharge Orders: Discharge (Routine); Ordered 02/16/25 Ordered By: Sera Freitas Quality Discharge Quality Measures VTE prophylaxis
[2025-02-20 06:59] LABS: Vitamin D,1,25 (OH)2,Total 35 pg/mL (18-72); Vitamin D2, 1,25 (OH)2 <8 pg/mL; Vitamin D3, 1,25 (OH)2 35 pg/mL
[2025-02-23 08:14] LABS: Helicobacter pylori Ag, Stool* NOT DETECTED (NOT DETECTED)
== END 2025-02-17 12:50 | disposition skilled nursing facility (03) | DRG 383 ==
LOC: SERX 18:09 → SERHOLD 21:38 → S3SX 02-14 14:58
PROVIDERS: Nurse Practitioner Family; Specialist; Student in an Organized Health Care Education/Training Program; Admitting Provider Internal Medicine; Emergency Provider Emergency Medicine; PCP Internal Medicine Nephrology; Visit Provider Internal Medicine
PROC: (CPT 43239; principal; 2025-02-14 15:00)
DX: K25.9 Gastric ulcer, unspecified as acute or chronic, without hemorrhage or perforation (principal); N18.6 End stage renal disease; E46 Unspecified protein-calorie malnutrition; S22.31XA Fracture of one rib, right side, initial encounter for closed fracture; I12.0 Hypertensive chronic kidney disease with stage 5 chronic kidney disease or end stage renal disease; K22.2 Esophageal obstruction; M43.16 Spondylolisthesis, lumbar region; R16.0 Hepatomegaly, not elsewhere classified; E11.22 Type 2 diabetes mellitus with diabetic chronic kidney disease; G47.33 Obstructive sleep apnea (adult) (pediatric); M70.61 Trochanteric bursitis, right hip; E78.5 Hyperlipidemia, unspecified; I95.89 Other hypotension; N40.0 Benign prostatic hyperplasia without lower urinary tract symptoms; W01.0XXA Fall on same level from slipping, tripping and stumbling without subsequent striking against object, initial encounter; D63.1 Anemia in chronic kidney disease; K29.50 Unspecified chronic gastritis without bleeding; Z79.4 Long term (current) use of insulin; Z86.73 Personal history of transient ischemic attack (TIA), and cerebral infarction without residual deficits; Z76.82 Awaiting organ transplant status; Z79.899 Other long term (current) drug therapy; Z98.84 Bariatric surgery status; Z99.2 Dependence on renal dialysis; Z90.5 Acquired absence of kidney; Z68.24 Body mass index [BMI] 24.0-24.9, adult
CPT/HCPCS: 36415; 71045; 73501; 73552; 74176; 80048; 80053; 81001; 82306; 82607; 82652; 82728; 82746; 83540; 83550; 83605; 83735; 83880; 84100; 84134; 84145; 84484; 85025; 85610; 85730; 87040; 87081; 87338; 93005; 96360; 96372; 99285; A4649; C1725; J1200; J1643; J1815; J2250; J2470; J3010; J3475; J7030; J7120; A9270

== ENCOUNTER 2025-03-20 11:32 | Day surgery (SDC) | payer MEDICARE, BC, SELFPAY ==
[2025-03-19 12:31] VITALS: BMI 22.1
[2025-03-20] VITALS (11 sets, daily range): BP systolic 123–144; BP diastolic 72–85; PULSE 89–110; RESP 10–18; TEMP 36.2–36.6; O2SAT 94–100; BMI 24.2
[2025-03-20] MEDS: SODIUM CHLORIDE 0.9% 500 ML 500 ML 20 ML IV (13:25)
[2025-03-20] MEDS: BENZOCAINE 20% (Hurricaine) SPRAY 1 DOSE TOP (13:25)
[2025-03-20] MEDS: fentaNYL CIT INJ 50 mCg/ML AMP 2ML (ASD USE ONLY) 25 MCG IV (13:28)
[2025-03-20] MEDS: MIDAZOLAM INJ 1 MG/ML VIAL 2 ML (ASD USE ONLY) 2 MG IV (13:28)
--- NOTE | 2025-03-20 13:48 | SUR.PHASEII ---
Addendum entered by Jakob Ruelas RN 03/20/25 14:42: pt is a hemodialysis patient. dialysis cath to right upper chest. Original Note: received pt and report from declan Cordero, iv in place, no s/s of infiltration or redness noted. pt resting with eyes closed, however arousable to voice. pt denies any pain. abd soft on palpation.
--- NOTE | 2025-03-20 14:05 | SUR.PHASEII ---
pt recovered well, vss, no distress noted. pt denies any pain or nausea. IV remains free of s/s of infiltration or redness to site.
--- NOTE | 2025-03-20 14:17 | SUR.PHASEII ---
dc instructions given to pt and his sister Maisha. Pt is dc'd to [facility] and Maisha stated she will give the dc instruction packet to the facility. IV removed with cath intact, pt tolerated well. Skin tear noted to IV site after IV dressing was removed. gauze applied with coban to secure. Informed Maisha to have the facility remove dressing when pt gets to the facility.
== END 2025-03-20 14:17 ==
PROVIDERS: PCP Family Medicine; Referring Provider Specialist; Visit Provider Specialist
PROC: (CPT 43239; principal; 2025-03-20 11:30)
DX: R10.13 Epigastric pain (principal); R11.2 Nausea with vomiting, unspecified
CPT/HCPCS: 43235; C1725; J2250; J3010; J7040; A9270

== ENCOUNTER 2025-04-04 16:10 | Emergency (ER) | payer MEDICARE, BC, SELFPAY ==
[2025-04-04 16:48] VITALS: BP 150/94; PULSE 104; RESP 18; TEMP 36.8; O2SAT 95; BMI 25.5
[2025-04-04 16:52] VITALS: PULSE 88; O2SAT 97; BMI 25.7
--- NOTE | 2025-04-04 17:00 | EKG_ITS ---
[facility] Test Date: 2025-04-04 Pat Name: TA STONE Department: Room: - Gender: Male Physician Specialist: : [id number] Requested By: Mallory Babb Order Number: [id number] Reading MD: Mallory Babb Measurements Intervals [place] Rate: 102 P: 45 DC: 138 QRS: 21 QRSD: 81 T: 0 QT: 278 QTc: 363 Interpretive Statements SINUS TACHYCARDIA LOW QRS VOLTAGE IN PRECORDIAL LEADS [QRS DEFLECTION < 1.0 mV IN CHEST LEADS] SEPTAL MYOCARDIAL INFARCTION , PROBABLY OLD [40+ ms Q WAVE IN V1/V2] Compared to ECG 02/13/2025 21:17:41 Myocardial infarct finding now present Sinus rhythm no longer present T-wave abnormality no longer present /store/S0/[id number].pdf
--- NOTE | 2025-04-04 17:00 | XR_ITS ---
Examination: CT brain head without contrast. 2-D sagittal coronal reconstructions Date and time of exam:April 04, 2025, 1734 hours INDICATIONS: Right-sided head injury today CTDI: vol (mGy):52.9 DLP: (mGycm):1079 Technique: Multiple CT axial sections of the brain have been obtained, 5 mm slice thickness. Contrast has not been administered. 2-D sagittal, coronal reconstructions have been obtained Low dose protocols were performed. One or more of the following dose reduction techniques were used; automated exposure control, adjustment of the mA and/or KV according to patient size, use of iterative reconstruction technique. Findings: No significant ventricular enlargement. Intra-axial or extra-axial hemorrhage density is not seen. No mass effect or midline shift Basal cisterns are not remarkable. Fourth ventricle is midline. Cranial vault intact. Soft tissue scalp prominence right occipital region Impression: Negative for acute hemorrhage, mass effect or midline shift
[2025-04-04 17:05] VITALS: PULSE 102
--- NOTE | 2025-04-04 18:07 | EDNOTE_ITS ---
Emergency Room Addendum <Bela Dimas - Last Filed: 04/04/25 20:09> Addendum Narrative: I took over the care from previous shift physician, Dr. BRODERICK, at 6 PM on 04/04/2025. See previous notes for complete H & P and ED course. I reviewed all diagnostic test results. My interpretation of the EKG is sinus rhythm with no acute ST?T changes. My review of the Head CT report is NAD. Blood tests remarkable for Cr 1.8, Diagnoses include: Scalp contusion Treatment here included Tylenol w/ Codeine, Ice Pack PRN, Based on my best medical judgment, made decision no further evaluation or treatment indicated at this time. Patient understands and agrees to the [facility] [place] instructions customized and printed, see below. Discharge Instructions from Dr. Benitez printed for you: 1. Fortunately, there is no very serious injury, such as brain injury. 2. Apply ice to your large scalp contusion in the back of your head for 20 minutes every 2-3 hours today and tomorrow. 3. Monitor closely for 24 hours. 4. Seek immediate medical care with severe and persistent headache, persistent vomiting, being extremely drowsy when you should be completely alert and awake, or with any concerns. Petey Benitez MD <Petey Benitez MD - Last Filed: 04/04/25 20:10> Addendum Narrative: I took over the care from previous shift physician, Dr. BRODERICK, at 6 PM on 04/04/2025. See previous notes for complete H & P and ED course. I reviewed all diagnostic test results. My interpretation of the EKG is sinus rhythm with no acute ST?T changes. My review of the Head CT report is NAD. Blood tests remarkable for Cr 1.8 (improvement) and negative troponin. Diagnoses include: Scalp contusion. Treatment here included Tylenol w/ Codeine. Recommended supportive care. Based on my best medical judgment, made decision no further evaluation or treatment indicated at this time. Patient understands and agrees to the discharge instructions customized and printed, see below. Discharge Instructions from Dr. Benitez printed for you: 1. Fortunately, there is no very serious injury, such as brain injury. 2. Apply ice to your large scalp contusion in the back of your head for 20 minutes every 2-3 hours today and tomorrow. 3. Monitor closely for 24 hours. 4. Seek immediate medical care with severe and persistent headache, persistent vomiting, being extremely drowsy when you should be completely alert and awake, or with any concerns. Petey Benitez MD
--- NOTE | 2025-04-04 18:12 | PD.EDFALL ---
ED Fall Injury RME/HPI General Chief Complaint: Fall Stated Complaint: FALL Time Seen by Provider: 04/04/25 16:57 Arrival date/time: 04/04/25 16:10 RME / HPI RME / HPI Narrative: 64 year old male with history of ESRD on HD T/Th/Sun, s/p right nephrectomy, diabetes, hyperlipidemia, s/p gastric bypass presents to the ED for evaluation following a head injury sustained earlier today. The patient reports that he was standing when he just went down, falling backwards and striking the back of his head on the floor. He denies any preceding symptoms such as lightheadedness or dizziness. He also denies any loss of consciousness at the time of the fall. The patient is not on any anticoagulant or antiplatelet medications. He denies any associated back pain, chest pain, palpitations, or neurological symptoms. Related Data Home Medications ?Medication ?Instructions ?Recorded ?Confirmed cholecalciferol (vitamin D3) 50 2,000 unit PO QDAY #0 caps 12/19/15 03/20/25 mcg (2,000 unit) capsule (Vitamin D3) vitamin B complex 1 tab PO QDAY 04/01/19 03/20/25 nortriptyline 25 mg capsule 25 mg PO HS 11/12/20 03/20/25 hydroxyzine HCl 10 mg tablet 10 mg PO QPM 03/07/24 03/20/25 insulin aspart U-100 100 unit/mL 5 unit subcut TID 03/07/24 03/20/25 (3 mL) subcutaneous pen (Novolog FlexPen U-100 Insulin aspart) midodrine 10 mg tablet 10 mg PO TID 03/07/24 03/20/25 sevelamer carbonate 800 mg tablet 800 mg PO .with meals 12/09/24 03/20/25 Previous Rx's ?Medication ?Instructions ?Recorded albuterol sulfate 90 mcg/actuation 2 puff inhalation Q6H PRN 12/13/24 aerosol inhaler shortness of breath or wheezing #6.7 grams aluminum-mag hydroxide-simethicone 10 ml PO QID #3,000 mL 02/15/25 200 mg-200 mg-20 mg/5 mL oral susp (Maalox Advanced) pantoprazole 40 mg tablet,delayed 40 mg PO BID #30 tabs 02/15/25 release (Protonix) Allergies Allergy/AdvReac Type Severity Reaction Status Date / Time house dust Allergy Verified 03/20/25 11:37 Review of Systems Review of Systems Narrative Review of Systems: GEN: No fever, no chills, no weight loss EYES: No discharge, no visual changes, no pain HEENT: +head injury s/p fall. No ear pain, no congestion, no sore throat PULM: No shortness of breath, no cough, no congestion CV: No chest pain, no dyspnea on exertion, no palpitations GI: No nausea, no vomiting, no diarrhea, no pain, no constipation : No frequency, no urgency, no dysuria MUSC/SKEL: No joint pain, no back pain SKIN: No rash PSYCH: No hallucinations, no depression HEME/LYMPH: No easy bleeding or bruising tendencies NEURO: No weakness, no headache Past Medical History Past Medical History NEUROLOGIC: Positive Transient Ischemic Attacks (TIA) (affected speech- ok now. 3 and 1/2 yrs ago.); Negative Neurological Disorders or Seizures CARDIAC: Positive Hypercholesterolemia and Hypertension; Negative Cardiac Disorders or Congestive Heart Failure RESPIRATORY: Positive Asthma (real bad as a child. Not bad now.), Pneumonia and Sleep Apnea (cpap at HS); Negative Chronic Obstructive Pulmonary Disease (COPD) GASTROINTESTINAL: Positive Gastrointestinal Disorders, Ulcer (gastric) and Gastroesophageal Reflux Disease GENITOURINARY: Positive Genitourinary Disorders, Renal Disease (ESRD), Kidney Stones and Dialysis (TTHS- Last HD ) MUSCULOSKELETAL: Positive Musculoskeletal Disorders and Arthritis ENT: Negative Cataracts ENDOCRINE: Positive Endocrine Disorders, Diabetes Mellitus Type 2 and Hypoglycemia; Negative Diabetes Mellitus Type 1 HEMATOLOGIC: Negative Blood Disorders or Sickle Cell Disease OTHER HISTORY: Positive Falls (02/13/25- Right leg hurts.), Chicken Pox, Measles and Mumps; Negative Autoimmune Disease, Blood Transfusions, Anesthesia Reactions or Cancer Family History FAMILY HISTORY: Positive Family Respiratory Disorders (COPD- parents); Negative Family Cancer Surgical History SURGICAL: Positive Tonsillectomy (5 yrs old), Gastric Bypass Surgery (1 and 1/2 yr ago) and Nephrectomy (right- 3 yrs ago) Social History SMOKING STATUS: Never smoker SECOND HAND EXPOSURE: No ED Exam Narrative Physical exam: GENERAL APPEARANCE: alert and oriented x 4, well-developed, well-nourished, no acute distress HEENT: Normocephalic,10cm soft fluctuant area on his right occiput consistent with hematoma ; pupils equal, round, reactive to light; EOMI; mucous membranes pink, moist; oropharynx clear NECK: Supple LUNGS: CTABL; no wheezes, no rales, no rhonchi HEART: Regular rate, regular rhythm; normal S1, S2; no murmurs ABDOMEN: non distended; normal BS; soft, no tenderness, no guarding, no rebound; no masses, no organomegaly, no hernia BACK: no CVA tenderness EXTREMITIES: atraumatic; no edema NEUROLOGIC: awake; alert and oriented x4; cranial nerves II-XII grossly intact; no focal sensory or motor deficits PSYCHIATRIC: appropriate mood and affect SKIN: warm, dry, normal color; no rashes Course Quality Measures none Orders Category Date Time Status Strategic Sourcing Manager NOW Care 04/04/25 17:00 Active EKG (ED ONLY) *Do not use* NOW Care 04/04/25 17:00 Completed Ice to Neck NEEDED Care 04/04/25 18:[address] head/brain wo con Stat Exams 04/04/25 17:00 Completed EKG (ED Only) Stat Exams 04/04/25 17:00 Draft CBC Stat Lab 04/04/25 18:09 Completed Comprehensive Metabolic Panel Stat Lab 04/04/25 18:09 Completed Lipase Stat Lab 04/04/25 18:09 Completed Magnesium Stat Lab 04/04/25 18:09 Completed Partial Thromboplastin Time Stat Lab 04/04/25 18:09 Received Prothrombin Time with INR Stat Lab 04/04/25 18:09 Received Troponin I Stat Lab 04/04/25 18:09 Completed ACETAMINOPHEN w/COD 300-30 [Tylenol w/Cod #3] Med 04/04/25 18:01 Discontinued 2 tab PO X1 ONE Vital Signs Vital signs: Vital Signs Temperature 98.3 F 04/04/25 16:48 Pulse Rate 104 H 04/04/25 16:48 Respiratory Rate 18 04/04/25 16:48 Blood Pressure 150/94 H 04/04/25 16:48 Pulse Oximetry (%) 95 04/04/25 16:48 Oxygen Delivery Method Room Air 04/04/25 16:48 Pulse ox is 95% on room air which is adequate. Fall MDM Narrative MDM Narrative:: Sherrie Chisholm am scribing for and in the presence of Dr. Lorenzana. Patient data External records reviewed:: [facility] previous records (I reviewed H&P on 03/20/2025), EMS form and Long Term records (I reviewed pmhx and medication list from SNF ) Clinical information provided by:: patient and EMS Social determinants that could affect healthcare access:: housing (SNF resident ) Patient has the following chronic illnesses:: ESRD on HD T/Th/Sun, s/p right nephrectomy, diabetes, hyperlipidemia, s/p gastric bypass How is presenting disease/condition affected by chronic disease/condition?: exacerbated by Evaluation data The following diagnostics were reviewed and interpreted by me:: other (specify) (labs and CT pending during sign out ) Lab and/or radiology exams considered but not ordered:: None Interpretation Summary: labs and CT report pending during sign out Medications / Prescriptions Medications or Prescriptions considered but not ordered:: None Medication administrations:: Medication Administration History Discontinued Medications Acetaminophen/Codeine Phosphate (Acetaminophen W/Cod 300-30 Tablet) 2 tab PO X1 ONE Stop: 04/04/25 18:02 Last Admin: 04/04/25 18:15 Dose: 2 tab Documented By: SM See above Consultations Consultation(s) initiated? (list below): No Diagnosis Fall Differential Diagnosis: syncope, concussion with loss of consciousness and concussion without loss of consciousness Most likely diagnosis given after review of the tests above:: Head injury Fall Admission Indicated Admission indicated?: not indicated Explain why admission is indicated or not indicated:: signed out to Dr. Benitez Admission Request Was there a request for admission?: No Disposition Plan Disposition Plan: other (specify) (signed out to Dr. Benietz ) Discharge Plan Prescriptions/Referrals Prescriptions/Med Rec: No Action nortriptyline 25 mg capsule 25 mg PO HS cholecalciferol (vitamin D3) [Vitamin D3] 2,000 UNIT capsule 2,000 unit PO QDAY Qty: 0 vitamin B complex Tablet 1 tab PO QDAY hydroxyzine HCl 10 mg tablet 10 mg PO QPM Patient Comments: TAKE 1 TABLET BY MOUTH NIGHTLY midodrine 10 mg Tablet 10 mg PO TID Rx Instructions: do not give last dose of day after 6PM or within 4 hrs of bedtime insulin aspart U-100 [Novolog FlexPen U-100 Insulin] 100 unit/mL (3 mL) insulin pen 5 unit SUBCUT TID Patient Comments: INJECT 5 UNIT SUBCUTANEOUSLY 3 TIMES A DAY BEFORE MEALS sevelamer carbonate 800 mg tablet 800 mg PO .with meals Patient Comments: TAKE 3 TABLETS BY MOUTH 3 TIMES A DAY WITH MEALS albuterol sulfate 90 mcg/actuation HFA aerosol inhaler 2 puff inhalation Q6H PRN (Reason: shortness of breath or wheezing) Qty: 6.7 0RF alum-mag hydroxide-simeth [Maalox Advanced] 200-200-20 mg/5 mL suspension 10 ml PO QID Qty: 3000 0RF Rx Instructions: administer between meals and at bedtime pantoprazole [Protonix] 40 mg tablet,delayed release (DR/EC) 40 mg PO BID Qty: 30 0RF Referrals: No Primary/Family,Physician [Primary Care Provider] - In 1 week Patient/Caregiver Discharge Instructions Print Language: Afghan
[2025-04-04] MEDS: ACETAMINOPHEN w/COD 300-30 TABLET 2 TAB PO (18:15)
[2025-04-04 18:24] LABS: Basophils # (Auto) 0.1 Thou/mm3 (0.0-0.2); Basophils % (Auto) 1 % (0-2.5); Eosinophils # (Auto) 0.2 Thou/mm3 (0.0-0.5); Eosinophils % (Auto) 2 % (0-10); Hematocrit 33.8 % (41.0-53.0); Hemoglobin 11.6 g/dL (13.5-16.0); Immature Granulocytes % (Auto) 0 % (0-0); Immature Granulocytes Auto 0.03 Thou/mm3 (0.00-0.00); Lymphocytes # (Auto) 3.2 Thou/mm3 (1.0-4.8); Lymphocytes % (Auto) 37 % (10-50); Mean Corpuscular HGB Conc 34.3 g/dl (31.0-37.0); Mean Corpuscular Hemoglobin 31.6 pg (25.0-35.0); Mean Corpuscular Volume 92 fL (80-100); Monocytes # (Auto) 0.8 Thou/mm3 (0.0-0.8); Monocytes % (Auto) 10 % (0-12); Neutrophils # (Auto) 4.3 Thou/mm3 (1.8-7.7); Neutrophils % (Auto) 50 % (37-80); Nucleated Red Blood Cell % 0 /100 WBC (0); Platelet Count 206 Thou/mm3 (140-440); RDW Standard Deviation 42.2 fL (35.1-43.9); Red Blood Count 3.67 Miln/mm3 (4.50-5.90); White Blood Count 8.7 Thou/mm3 (3.8-10.6)
[2025-04-04 18:40] LABS: Alanine Aminotransferase < 7 U/L (10-49); Albumin, Serum 2.7 gm/dL (3.4-4.8); Albumin/Globulin Ratio 0.9 (1.2-2.2); Alkaline Phosphatase 218 U/L (46-116); Anion Gap 7 (7-16); Aspartate Amino Transferase 19 U/L (0-34); BUN/Creatinine Ratio 4 Ratio (12-20); Bilirubin,Total 0.7 mg/dL (0.3-1.2); Blood Urea Nitrogen 7 mg/dL (9-23); Calcium 8.4 mg/dL (8.3-10.6); Calcium (Corrected) 9.4 mg/dL (8.5-10.1); Carbon Dioxide 31.8 mMol/L (20.0-31.0); Chloride 96 mMol/L (98-107); Creatinine (Component) 1.8 mg/dL (0.6-1.3); Globulin 3.1 gm/dL (2.3-3.5); Glucose 141 mg/dL (74-106); Lipase 33 U/L (12-53); Magnesium 1.8 mg/dL (1.6-2.6); Osmolality,Calculated 270 (275-295); Potassium 3.5 mMol/L (3.4-5.1); Sodium 135 mMol/L (136-145); Total Protein 5.8 gm/dL (5.7-8.2); Troponin I 0.024 ng/mL (0.0-0.045); eGFR 42 See Note
[2025-04-04 18:58] LABS: INR 1.1 (0.9-1.3); Partial Thromboplastin Time 60.4 Seconds (22.0-36.0); Prothrombin Time 12.1 Seconds (9.0-12.2)
--- NOTE | 2025-04-04 20:00 | PC.NURSE ---
Pt resting in bed with no acute distress reported, pt states pain to back of head 3/10 at this time, no report of N/V or blurred vision. Bed in low position and locked with side rails up x 2, Pt is A/O x 3
--- NOTE | 2025-04-04 21:30 | PC.NURSE ---
Report called to SNF, report recieved by FRANCIS Amado
[2025-04-04 21:34] VITALS: BP 133/82; PULSE 93; RESP 15; TEMP 36.4; O2SAT 98
== END 2025-04-04 21:56 | disposition home or self-care (01) ==
PROVIDERS: Emergency Medicine; Emergency Provider Emergency Medicine
DX: S00.03XA Contusion of scalp, initial encounter (principal); W19.XXXA Unspecified fall, initial encounter
CPT/HCPCS: 36415; 70450; 80053; 83690; 83735; 84484; 85025; 85610; 85730; 93005; 99284; A9270

== ENCOUNTER 2025-05-14 18:03 | Emergency (ER) | payer MEDICARE, BC, SELFPAY ==
[2025-05-14 18:07] VITALS: BP 128/76; PULSE 108; RESP 18; TEMP 36.9; O2SAT 100; BMI 24.2
[2025-05-14 18:08] VITALS: PULSE 114; RESP 20; O2SAT 100
--- NOTE | 2025-05-14 18:25 | PD.EDWOUND ---
ED Wound/Laceration-RME/HPI General Chief Complaint: Wound/Laceration Stated Complaint: EQUIPMENT FAILURE/FISTULA Time Seen by Provider: 05/14/25 18:21 Arrival date/time: 05/14/25 18:03 RME / HPI RME / HPI narrative: Dr. Keyes?s Main ED Evaluation: 65yo male with a history of ESRD on HD, DM, CRISTIANO, BPH, s/p gastric bypass, was previously seen here in March for a fall now presents to the ED via ambulance from [facility] for leakage of fluid at the site of his recent injury at the dorsal aspect of the left forearm. Patient had a recent shunt revision involving the left brachial artery. No parethesia or weakness of the affected extremity. No fever or chills reported. Related Data Home Medications ?Medication ?Instructions ?Recorded ?Confirmed cholecalciferol (vitamin D3) 50 2,000 unit PO QDAY #0 caps 12/19/15 03/20/25 mcg (2,000 unit) capsule (Vitamin D3) vitamin B complex 1 tab PO QDAY 04/01/19 03/20/25 nortriptyline 25 mg capsule 25 mg PO HS 11/12/20 03/20/25 hydroxyzine HCl 10 mg tablet 10 mg PO QPM 03/07/24 03/20/25 insulin aspart U-100 100 unit/mL 5 unit subcut TID 03/07/24 03/20/25 (3 mL) subcutaneous pen (Novolog FlexPen U-100 Insulin aspart) midodrine 10 mg tablet 10 mg PO TID 03/07/24 03/20/25 sevelamer carbonate 800 mg tablet 800 mg PO .with meals 12/09/24 03/20/25 Previous Rx's ?Medication ?Instructions ?Recorded albuterol sulfate 90 mcg/actuation 2 puff inhalation Q6H PRN 12/13/24 aerosol inhaler shortness of breath or wheezing #6.7 grams aluminum-mag hydroxide-simethicone 10 ml PO QID #3,000 mL 02/15/25 200 mg-200 mg-20 mg/5 mL oral susp (Maalox Advanced) pantoprazole 40 mg tablet,delayed 40 mg PO BID #30 tabs 02/15/25 release (Protonix) bacitracin 500 unit/gram topical 1 applic topical Q8H #14 grams 05/14/25 ointment Allergies Allergy/AdvReac Type Severity Reaction Status Date / Time house dust Allergy Verified 03/20/25 11:37 Review of Systems Review of Systems Systems Reviewed: All systems reviewed, normal except as documented Past Medical History Past Medical History NEUROLOGIC: Positive Transient Ischemic Attacks (TIA); Negative Neurological Disorders or Seizures CARDIAC: Positive Hypercholesterolemia and Hypertension; Negative Cardiac Disorders or Congestive Heart Failure RESPIRATORY: Positive Asthma, Pneumonia and Sleep Apnea; Negative Chronic Obstructive Pulmonary Disease (COPD) GASTROINTESTINAL: Positive Gastrointestinal Disorders, Ulcer and Gastroesophageal Reflux Disease GENITOURINARY: Positive Genitourinary Disorders, Renal Disease, Kidney Stones and Dialysis MUSCULOSKELETAL: Positive Musculoskeletal Disorders and Arthritis ENT: Negative Cataracts ENDOCRINE: Positive Endocrine Disorders, Diabetes Mellitus Type 2 and Hypoglycemia; Negative Diabetes Mellitus Type 1 HEMATOLOGIC: Negative Blood Disorders or Sickle Cell Disease OTHER HISTORY: Positive Falls, Chicken Pox, Measles and Mumps; Negative Autoimmune Disease, Blood Transfusions, Anesthesia Reactions or Cancer Family History FAMILY HISTORY: Positive Family Respiratory Disorders; Negative Family Cancer Surgical History SURGICAL: Positive Tonsillectomy, Gastric Bypass Surgery and Nephrectomy Social History SMOKING STATUS: Never smoker SECOND HAND EXPOSURE: No ED Exam Narrative Physical exam: GENERAL APPEARANCE: alert and oriented x 4, well-developed, well-nourished, appears comfortable, no acute distress VITALS: All vitals were reviewed and the pulse ox is 100% on room air, which is normal according to my interpretation. HEENT: Normocephalic, atraumatic; pupils equal, round, reactive to light; EOMI; mucous membranes pink, moist; oropharynx clear NECK: Supple LUNGS: CTABL; no wheezes, no rales, no rhonchi HEART: Regular rate, regular rhythm; normal S1, S2; no murmurs ABDOMEN: non distended; normal BS; soft, no tenderness, no guarding, no rebound; no masses, no organomegaly, no hernia BACK: no CVA tenderness EXTREMITIES: atraumatic; no edema Left forearm: localized edema to the dorsum proximal to the forearm with generalized edema extending to the dorsum of the left hand. Distal function is intact. There is a minor abrasion and weeping of serous fluid. NEUROLOGIC: awake; alert and oriented x4; cranial nerves II-XII grossly intact; no focal sensory or motor deficits PSYCHIATRIC: appropriate mood and affect SKIN: warm, dry, normal color; no rashes Course Quality Measures none Orders Category Date Time Status US venous doppler LE LT Stat Exams 05/14/25 19:39 Completed XR forearm LT 2V Stat Exams 05/14/25 18:36 Completed CBC Stat Lab 05/14/25 19:24 Completed CMP [Comprehensive Metabolic Panel] Stat Lab 05/14/25 19:24 Completed TET,DIP/PERT AC (Adult)-Tdap [Boostrix Adult (Tdap) Med 05/14/25 18:36 Discontinued Vacc] 0.5 ml IMI .ONCE ONE Vital Signs Vital signs: Vital Signs Temperature 98.5 F 05/14/25 18:07 Pulse Rate 108 H 05/14/25 18:07 Respiratory Rate 18 05/14/25 18:07 Blood Pressure 128/76 05/14/25 18:07 Pulse Oximetry (%) 100 05/14/25 18:07 Oxygen Delivery Method Room Air 05/14/25 18:07 Wound / Laceration MDM Narrative MDM Narrative:: Scribe Attestation: 05/14/25 - Nicole Chisholm am scribing for and in the presence of Dr. Keyes. 65yo male with a history of ESRD on HD, DM, CRISTIANO, BPH, s/p gastric bypass, was previously seen here in March for a fall now presents to the ED via ambulance from [facility] for leakage of fluid at the site of his recent injury at the dorsal aspect of the left forearm. Patient had a recent shunt revision involving the left brachial artery. See PE findings. Labs performed including CBC demonstrate mild anemia with a hemoglobin of 9.3, WBC count is normal. Serum chemistries are pending. Patient's tDap is UTD. Wound was cleansed and has a compression dressing in place. Suspect weeping due to poor lymphatic drainage. Routine x-ray unremarkable. Will obtain ultrasound of the LUE and if it's unremarkable, will likely discharge home. Patient data External records reviewed:: [facility] previous records (Per chart review, patient was seen here on 04/04/25 for a fall.), EMS form and [facility] Clinical information provided by:: patient Social determinants that could affect healthcare access:: housing (SNF resident) Patient has the following chronic illnesses:: ESRD, DM, CRISTIANO, BPH, s/p gastric bypass How is presenting disease/condition affected by chronic disease/condition?: uneffected by Evaluation data The following diagnostics were reviewed and interpreted by me:: radiology exam(s) Lab and/or radiology exams considered but not ordered:: none Interpretation Summary: See MDM. Medications / Prescriptions Medications or Prescriptions considered but not ordered:: none Medication administrations:: Medication Administration History Discontinued Medications Diphtheria/Tetanus/Acell Pertussis (Diphth,Pertuss(Acell),Tet Vac 0.5 Ml Syr- Adult) 0.5 ml IMi .ONCE ONE Stop: 05/14/25 18:37 Last Admin: 05/14/25 19:44 Dose: 0.5 ml Documented By: EF see above Consultations Consultation(s) initiated? (list below): No Diagnosis Wound Differential Diagnosis: avulsion of skin and other (wound dehiscence, lymphatic drainage) Most likely diagnosis given after review of the tests above:: see clinical impression below Admission Indicated Admission indicated?: not indicated Admission Request Was there a request for admission?: No Disposition Plan Disposition Plan: Discharge Discharge Attestation Discharge Attestation: The patient and all family members were given an opportunity to ask questions and understood the discharge instructions. Discharge instructions specifically effects, indications for sooner follow up or return to the emergency department, and the expected course of current diagnosis. Patient condition: Stable Discharge Plan Plan Patient Disposition: HOME (Self Care) Patient condition on transfer: Stable Prescriptions/Referrals Prescriptions/Med Rec: New bacitracin 500 unit/gram ointment 1 applic topical Q8H Qty: 14 0RF No Action nortriptyline 25 mg capsule 25 mg PO HS cholecalciferol (vitamin D3) [Vitamin D3] 2,000 UNIT capsule 2,000 unit PO QDAY Qty: 0 vitamin B complex Tablet 1 tab PO QDAY hydroxyzine HCl 10 mg tablet 10 mg PO QPM Patient Comments: TAKE 1 TABLET BY MOUTH NIGHTLY midodrine 10 mg Tablet 10 mg PO TID Rx Instructions: do not give last dose of day after 6PM or within 4 hrs of bedtime insulin aspart U-100 [Novolog FlexPen U-100 Insulin] 100 unit/mL (3 mL) insulin pen 5 unit SUBCUT TID Patient Comments: INJECT 5 UNIT SUBCUTANEOUSLY 3 TIMES A DAY BEFORE MEALS sevelamer carbonate 800 mg tablet 800 mg PO .with meals Patient Comments: TAKE 3 TABLETS BY MOUTH 3 TIMES A DAY WITH MEALS albuterol sulfate 90 mcg/actuation HFA aerosol inhaler 2 puff inhalation Q6H PRN (Reason: shortness of breath or wheezing) Qty: 6.7 0RF alum-mag hydroxide-simeth [Maalox Advanced] 200-200-20 mg/5 mL suspension 10 ml PO QID Qty: 3000 0RF Rx Instructions: administer between meals and at bedtime pantoprazole [Protonix] 40 mg tablet,delayed release (DR/EC) 40 mg PO BID Qty: 30 0RF Referrals: No Primary/Family,Physician [Primary Care Provider] - In 1 week Problem List Clinical Impression: Lymphedema Patient/Caregiver Discharge Instructions Discharge Activity: activity as tolerated Education Materials: ED Lymphedema Additional Instructions: Maintain elevation of left upper extremity 2-3 times daily. Change dressing in 24 hours and use topical antibiotic ointment twice daily. Return for fever increasing pain swelling or worsening illness. Print Language: Sami Stand Alone Forms: [employer] Award Info., Patient Portal Info Letter
--- NOTE | 2025-05-14 18:36 | XR_ITS ---
Examination: Forearm, left, 2 views. Technique: Forearm, AP, lateral 2 views Date and time of exam: May 14, 2025 1914 hours INDICATIONS: Patient fell 2 months ago with injury to the forearm, forearm pain. FINDINGS: No acute fracture No elbow effusion On the lateral view of the distal ulna is dorsally positioned IMPRESSION: No fracture Suggest follow-up true lateral view of the wrist as clinically warranted
[2025-05-14 19:31] LABS: Basophils # (Auto) 0.1 Thou/mm3 (0.0-0.2); Basophils % (Auto) 1 % (0-2.5); Eosinophils # (Auto) 0.1 Thou/mm3 (0.0-0.5); Eosinophils % (Auto) 2 % (0-10); Hematocrit 26.3 % (41.0-53.0); Hemoglobin 9.3 g/dL (13.5-16.0); Immature Granulocytes Auto 0.01 Thou/mm3 (0.00-0.00); Lymphocytes # (Auto) 2.5 Thou/mm3 (1.0-4.8); Lymphocytes % (Auto) 42 % (10-50); Mean Corpuscular HGB Conc 35.4 g/dl (31.0-37.0); Mean Corpuscular Hemoglobin 33.1 pg (25.0-35.0); Mean Corpuscular Volume 94 fL (80-100); Monocytes # (Auto) 0.6 Thou/mm3 (0.0-0.8); Monocytes % (Auto) 11 % (0-12); Neutrophils # (Auto) 2.7 Thou/mm3 (1.8-7.7); Neutrophils % (Auto) 45 % (37-80); Nucleated Red Blood Cell # 0.00 Thou/mm3 (0.00-0.00); Nucleated Red Blood Cell % 0 /100 WBC (0); Platelet Count 165 Thou/mm3 (140-440); RDW Standard Deviation 49.0 fL (35.1-43.9); Red Blood Count 2.81 Miln/mm3 (4.50-5.90); White Blood Count 5.9 Thou/mm3 (3.8-10.6)
--- NOTE | 2025-05-14 19:39 | XR_ITS ---
Examination: Duplex scan of the lower extremity, unilateral left Date and time of exam: May 14, 2025 2000 hours INDICATIONS: Edema left leg today Technique: Duplex scan of the extremity veins using B-mode/grayscale imaging and Doppler spectral analysis and color flow Attention is directed to internal echogenicity, compression and augmentation involving these veins, color flow assessment, spectral analysis Findings: Major deep venous structures in the extremity demonstrate normal course and caliber. There is no evidence of deep vein thrombosis. Normal color flow and spectral analysis 4 cm left popliteal cyst Impression: Negative for DVT..
[2025-05-14] MEDS: DIPHTH,PERTUSS(ACELL),TET VAC 0.5 ML SYR- ADULT IMi (19:44)
[2025-05-14 19:49] LABS: Alanine Aminotransferase 21 U/L (10-49); Albumin, Serum 2.1 gm/dL (3.4-4.8); Albumin/Globulin Ratio 0.8 (1.2-2.2); Alkaline Phosphatase 282 U/L (46-116); Anion Gap 7 (7-16); Aspartate Amino Transferase 55 U/L (0-34); BUN/Creatinine Ratio 4 Ratio (12-20); Bilirubin,Total 0.3 mg/dL (0.3-1.2); Blood Urea Nitrogen 11 mg/dL (9-23); Calcium 7.7 mg/dL (8.3-10.6); Calcium (Corrected) 9.2 mg/dL (8.5-10.1); Carbon Dioxide 29.3 mMol/L (20.0-31.0); Chloride 104 mMol/L (98-107); Creatinine (Component) 2.5 mg/dL (0.6-1.3); Estimated Creatinine Clearance 29.9 mL/min (>60); Globulin 2.6 gm/dL (2.3-3.5); Glucose 180 mg/dL (74-106); Osmolality,Calculated 283 (275-295); Potassium 4.0 mMol/L (3.4-5.1); Sodium 140 mMol/L (136-145); Total Protein 4.7 gm/dL (5.7-8.2); eGFR 28 See Note
[2025-05-14 22:38] VITALS: BP 135/99; PULSE 95; RESP 19; TEMP 36.8; O2SAT 100
--- NOTE | 2025-05-14 23:25 | PC.NURSE ---
report called via telephone to arcadio davison from [facility] [place] [facility]
== END 2025-05-14 23:27 | disposition home or self-care (01) ==
PROVIDERS: Emergency Provider Emergency Medicine
DX: I89.0 Lymphedema, not elsewhere classified (principal); S59.912A Unspecified injury of left forearm, initial encounter; X58.XXXA Exposure to other specified factors, initial encounter; E11.22 Type 2 diabetes mellitus with diabetic chronic kidney disease; N18.6 End stage renal disease
CPT/HCPCS: 36415; 73090; 80053; 85025; 90715; 93971; 99283

== ENCOUNTER 2025-06-14 18:00 | Inpatient (IN) | payer MEDICARE, MEDICAID, SELFPAY ==
[2025-06-14] VITALS (7 sets, daily range): BP systolic 156–171; BP diastolic 88–101; PULSE 95–132; RESP 16–19; TEMP 36.7–38.7; O2SAT 92–98; BMI 24.3
--- NOTE | 2025-06-14 18:33 | PD.EDHIP ---
Lower Extremity Injury RME/HPI General Chief Complaint: Hip Injury/Pain Stated Complaint: LEFT HIP PAIN Time Seen by Provider: 06/14/25 18:15 Arrival date/time: 06/14/25 18:00 RME / HPI RME / HPI Narrative: Dr. Keyes?s Main ED Evaluation: 65yo male BIBA from SNF presenting s/p fall. Patient lost his balance, fell forward, and landed on his left hip. He also hit his left posterior parietal area. No LOC. No headache, nausea, or vision disturbances. He is unable to sit upright. No other injuries. PMH includes ESRD on HD, DM, HTN. No prior CVA. Related Data Home Medications ?Medication ?Instructions ?Recorded ?Confirmed cholecalciferol (vitamin D3) 50 2,000 unit PO QDAY #0 caps 12/19/15 03/20/25 mcg (2,000 unit) capsule (Vitamin D3) vitamin B complex 1 tab PO QDAY 04/01/19 03/20/25 nortriptyline 25 mg capsule 25 mg PO HS 11/12/20 03/20/25 hydroxyzine HCl 10 mg tablet 10 mg PO QPM 03/07/24 03/20/25 insulin aspart U-100 100 unit/mL 5 unit subcut TID 03/07/24 03/20/25 (3 mL) subcutaneous pen (Novolog FlexPen U-100 Insulin aspart) midodrine 10 mg tablet 10 mg PO TID 03/07/24 03/20/25 sevelamer carbonate 800 mg tablet 800 mg PO .with meals 12/09/24 03/20/25 Previous Rx's ?Medication ?Instructions ?Recorded albuterol sulfate 90 mcg/actuation 2 puff inhalation Q6H PRN 12/13/24 aerosol inhaler shortness of breath or wheezing #6.7 grams aluminum-mag hydroxide-simethicone 10 ml PO QID #3,000 mL 02/15/25 200 mg-200 mg-20 mg/5 mL oral susp (Maalox Advanced) pantoprazole 40 mg tablet,delayed 40 mg PO BID #30 tabs 02/15/25 release (Protonix) bacitracin 500 unit/gram topical 1 applic topical Q8H #14 grams 05/14/25 ointment Allergies Allergy/AdvReac Type Severity Reaction Status Date / Time house dust Allergy Verified 06/14/25 18:06 Review of Systems Review of Systems Systems Reviewed: All systems reviewed, normal except as documented Past Medical History Past Medical History NEUROLOGIC: Positive Transient Ischemic Attacks (TIA); Negative Neurological Disorders or Seizures CARDIAC: Positive Hypercholesterolemia and Hypertension; Negative Cardiac Disorders or Congestive Heart Failure RESPIRATORY: Positive Asthma, Pneumonia and Sleep Apnea; Negative Chronic Obstructive Pulmonary Disease (COPD) GASTROINTESTINAL: Positive Gastrointestinal Disorders, Ulcer and Gastroesophageal Reflux Disease GENITOURINARY: Positive Genitourinary Disorders, Renal Disease, Kidney Stones and Dialysis MUSCULOSKELETAL: Positive Musculoskeletal Disorders and Arthritis ENT: Negative Cataracts ENDOCRINE: Positive Endocrine Disorders, Diabetes Mellitus Type 2 and Hypoglycemia; Negative Diabetes Mellitus Type 1 HEMATOLOGIC: Negative Blood Disorders or Sickle Cell Disease OTHER HISTORY: Positive Falls, Chicken Pox, Measles and Mumps; Negative Autoimmune Disease, Blood Transfusions, Anesthesia Reactions or Cancer Family History FAMILY HISTORY: Positive Family Respiratory Disorders; Negative Family Cancer Surgical History SURGICAL: Positive Tonsillectomy, Gastric Bypass Surgery and Nephrectomy Social History SMOKING STATUS: Never smoker SECOND HAND EXPOSURE: No ED Exam Narrative Physical exam: GENERAL APPEARANCE: alert and oriented x 4, chronically-ill appearing, debilitated, mild distress, complaining of left hip pain VITALS: All vitals were reviewed and the pulse ox is 98% on room air, which is normal according to my interpretation. HEENT: Normocephalic, atraumatic; pupils equal, round, reactive to light; EOMI; mucous membranes pink, moist; oropharynx clear NECK: Supple LUNGS: CTABL; no wheezes, no rales, no rhonchi HEART: Tachycardic, regular rhythm; normal S1, S2; no murmurs ABDOMEN: non distended; normal BS; soft, no tenderness, no guarding, no rebound; no masses, no organomegaly, no hernia BACK: no CVA tenderness EXTREMITIES: LLE externally rotated and shortened, tenderness to the left intertrochanteric region down to the mid thigh, no circumferential edema, distal function is intact, marked pain noted on internal and external rotation NEUROLOGIC: awake; alert and oriented x4; cranial nerves II-XII grossly intact; no focal sensory or motor deficits; gait not observed PSYCHIATRIC: appropriate mood and affect SKIN: warm, dry, normal color; no rashes Course Course Course Narrative: 2105: Sepsis alert initiated. Orders made at this time are congruent with ED Adult Sepsis Order List. Re-evaluation is to be completed. IVF 30mL/kg not given due to the patient being on HD. 250mL NS IVF given. 2200: Sepsis reassessment performed consisting of lab review, vitals, physical exam including auscultation of heart, lungs, and visual evaluation of capillary refills, mucosal membranes and extremities. Quality Measures Possible source: unknown Blood cultures ordered: yes Antibiotic ordered: Yes Pertinent labs: 06/14/25 06/14/25 21:09 21:20 Lactic Acid 1.9 mMol/L (0.4-2.0) Procalcitonin 0.35 ng/ml (0.0-0.49) sepsis Orders Category Date Time Status Bedside COVID-19 Antigen Test NOW Care 06/14/25 22:37 Active EKG (ED ONLY) *Do not use* NOW Care 06/14/25 20:26 Completed Insert IV NOW Care 06/14/25 19:[address] chest abdomen pelvis wo Stat Exams 06/14/25 23:[address] head/brain wo con Stat Exams 06/14/25 18:34 Completed EKG (ED Only) Stat Exams 06/14/25 20:24 Ordered EKG (ED Only) Urgent Exams 06/14/25 20:24 Draft XR chest 1V portable Stat Exams 06/14/25 23:55 Taken XR femur LT 2V Stat Exams 06/14/25 18:37 Completed XR hip LT 1V Stat Exams 06/14/25 21:18 Completed XR hip LT w pelvis 2-3V Stat Exams 06/14/25 18:34 Completed Blood Culture (Lab) Stat Lab 06/14/25 21:14 Received CBC [CBC] Stat Lab 06/14/25 21:09 Completed CMP [Comprehensive Metabolic Panel] Stat Lab 06/14/25 21:09 Completed Lactic Acid [Lactate (Lactic Acid)] Stat Lab 06/14/25 21:20 Completed Procalcitonin Stat Lab 06/14/25 21:09 Completed Urinalysis Stat Lab 06/14/25 22:22 Completed Urinalysis, C/S if Indicated Stat Lab 06/14/25 22:22 Completed Acetaminophen Tab [Tylenol ES Tab] Med 06/14/25 22:18 Discontinued 1,000 mg PO X1 ONE Acetaminophen Tab [Tylenol Tab] Med 06/14/25 21:06 Discontinued 1,000 mg PO X1 ONE Morphine Inj Med 06/14/25 19:51 Discontinued 4 mg IVP X1 ONE Ondansetron Inj [Zofran Inj] Med 06/14/25 18:34 Discontinued 4 mg IVP X1 ONE Piper/Tazo 3.375 gm Premix [Zosyn] Med 06/14/25 21:07 Discontinued 3.375 gm in 50 ml IV X1 Sodium Chloride 0.9% [Ns] 250 ml Med 06/14/25 20:35 Discontinued IV X1 Sodium Chloride 0.9% [Ns] 50 ml Med 06/14/25 20:25 Discontinued IV X1 Vancomycin Inj 1,000 mg Med 06/14/25 21:06 Discontinued Sodium Chloride 0.9% 250 ml [Ns] 250 ml IV X1 Vancomycin Pharmacy to Dose Med 06/15/25 09:00 Pending 1 each IV QDAY fentaNYL INJ [Sublimaze Inj] Med 06/14/25 18:34 Discontinued 50 mcg IVP X1 ONE Vital Signs Vital signs: Vital Signs Temperature 98.1 F 06/14/25 18:02 Pulse Rate 114 H 06/14/25 18:02 Respiratory Rate 18 06/14/25 18:02 Blood Pressure 156/89 H 06/14/25 18:02 Pulse Oximetry (%) 98 06/14/25 18:02 Oxygen Delivery Method Room Air 06/14/25 18:02 PROCEDURES: Central Line Placement Right Femoral: Time Out Performed: Yes Patient Placed on Monitor/Pulse Ox: Yes Hand Hygiene: soap & water Max Sterile Barrier Techniques used: cap, mask, sterile gown, sterile gloves and sterile full body drape Central Line Prep: Povidone-Iodine 1% and sterile drapes applied Local Anesthetic: lidocaine 1% Amount of anesthesia used (mL): 5 Ultrasound Used for Placement: Yes Sterile Technique if Ultrasound used, including sterile gel: yes Central Line Lumen Inserted: triple Post Procedure: sutured in place, good blood return, all ports aspirated, flushed, capped and sterile dressing applied Patient Tolerated Procedure: well and no complications Extremity Injury, Lower MDM Narrative MDM Narrative:: Scribe Attestation: 06/14/25 - Nicole Chisholm am scribing for and in the presence of Dr. Keyes. 65yo male BIBA from [facility] presenting s/p fall. Patient lost his balance, fell forward, and landed on his left hip. He also hit his left posterior parietal area. Please see PE findings. CBC remarkable for elevated WBC count 14.8, chronic anemia Hgb 14.8, and thrombocytopenia with platelets of 90. Chemistries showed chronic renal insufficiency, mild elevated LFTs above baseline, lactate high normal, and procalcitonin unremarkable. Central line placed for access purposes (see procedure note) and empiric antibiotics given for possible left lower lobe pneumonia. Routine radiographs of the left hip demonstrate intertrochanteric left hip fracture without pelvic fracture. Case discussed with orthopedic surgeon on-call, who suggest medical clearance before intervention. Hospitalist was consulted and agrees to admit. Dx: acute sepsis, ground level fall, closed left hip fracture, left lower lobe pneumonia. Patient data External records reviewed:: [facility] previous records (Per chart review, patient was seen here on 05/14/25 for lymphedema.) and EMS form Clinical information provided by:: patient Social determinants that could affect healthcare access:: housing (SNF resident) Patient has the following chronic illnesses:: ESRD on HD, DM, HTN How is presenting disease/condition affected by chronic disease/condition?: uneffected by Evaluation data The following diagnostics were reviewed and interpreted by me:: lab results, radiology exam(s) and EKG tracing(s) Lab and/or radiology exams considered but not ordered:: none Interpretation Summary: CXR shows increased interstitial marking left base, fluid at the right fissure, no definite consolidation, air bronchograms at the left base, according to my interpretation. EKG done at 2042, sinus tachycardia, rate of 129, no acute ST segment changes, no ectopy, left axis deviation, low voltage QRS throughout precordial leads, according to my interpretation --------- [facility] Report Signed Patient: TA STONE [facility]. Record#: [id number] Birthdate: 1960 Age/Sex: 65 / M Location: [facility] Attending Dr: Ordering Physician: Albert Kerr DO Date of Service: 06/14/25 Procedure(s): CT head/brain wo con Accession Number(s): [id number] cc: Albert Kerr DO; Farrukh Cummings MD; NO PRIMARY/FAMILY,PHYSICIAN~ Examination: CT brain head without contrast. 2-D sagittal coronal reconstructions Date and time of exam:June 14, 2025 2030 hours Comparison April 04, 2025 INDICATIONS: Ground-level fall with injury of the head today, head pain CTDI: vol (mGy):50.5 DLP: (mGycm):1039 Technique: Multiple CT axial sections of the brain have been obtained, 5 mm slice thickness. Contrast has not been administered. 2-D sagittal, coronal reconstructions have been obtained Low dose protocols were performed. One or more of the following dose reduction techniques were used; automated exposure control, adjustment of the mA and/or KV according to patient size, use of iterative reconstruction technique. Findings: No significant ventricular enlargement. Intra-axial or extra-axial hemorrhage density is not seen. No mass effect or midline shift Basal cisterns are not remarkable. Fourth ventricle is midline. Cranial vault intact. Impression: Negative for acute hemorrhage, mass effect or midline shift Dictated By: Farrukh Cummings MD Signed By: <Electronically signed by Farrukh Cummings MD in OV> 06/14/252138 [facility] Report Signed Patient: TA STONE [facility]. Record#: [id number] Birthdate: 1960 Age/Sex: 65 / M Location: [facility] Attending Dr: Ordering Physician: Albert Kerr DO Date of Service: 06/14/25 Procedure(s): XR hip LT w pelvis 2-3V Accession Number(s): [id number] cc: Albert Kerr DO; Farrukh Cummings MD; NO PRIMARY/FAMILY,PHYSICIAN~ Examination:Left hip AP, lateral, AP pelvis 3 views Technique: Hip AP lateral, AP pelvis, 3 views Exam date and time:June 14, 2025 1920 hours INDICATIONS: Patient fell today within the hip, hip pain. FINDINGS: Acute intertrochanteric fracture left hip without significant offset Right hip films of the pelvis and IMPRESSION: Acute intertrochanteric fracture left hip. Dictated By: Farrukh Cummings MD Signed By: <Electronically signed by Farrukh Cummings MD in OV> 06/14/252147 [facility] Report Signed Patient: TA STONE [facility]. Record#: [id number] Birthdate: 1960 Age/Sex: 65 / M Location: [facility] Attending Dr: Ordering Physician: Albert Kerr DO Date of Service: 06/14/25 Procedure(s): XR femur LT 2V Accession Number(s): [id number] cc: Albert Kerr DO; Farrukh Cummings MD; NO PRIMARY/FAMILY,PHYSICIAN~ Examination: Left femur 2 views TECHNIQUE: AP lateral left femur 2 views Date and time: June 14, 2025, 1937 hours INDICATIONS: Patient fell today with injury to the femur, femur pain. FINDINGS: Acute intertrochanteric fracture left hip No hip dislocation Shaft of the femur are intact IMPRESSION: Acute intertrochanteric fracture left hip Dictated By: Farrukh Cummings MD Signed By: <Electronically signed by Farrukh Cummings MD in OV> 06/14/25 2148 Medications / Prescriptions Medications or Prescriptions considered but not ordered:: none Medication administrations:: Medication Administration History Pharmacy Consult (Vancomycin Pharmacy To Dose 1 Each Each) 1 each IV QDAY ERIC Stop: 07/15/25 08:59 Discontinued Medications Acetaminophen (Acetaminophen 325 Mg Tablet) 1,000 mg PO X1 ONE Stop: 06/14/25 21:07 Last Admin: 06/14/25 22:20 Dose: Not Given Documented By: PAUL Non-Admin Reason: Discontinued Acetaminophen (Acetaminophen 500 Mg Tablet) 1,000 mg PO X1 ONE Stop: 06/14/25 22:19 Last Admin: 06/14/25 22:27 Dose: 1,000 mg Documented By: PAUL Fentanyl Citrate (Fentanyl Cit Inj 50 Mcg/Ml Amp 2ml) 50 mcg IVP X1 ONE Stop: 06/14/25 18:35 Last Admin: 06/14/25 19:12 Dose: 50 mcg Documented By: PAUL Sodium Chloride (Ns) 50 mls @ 250 mls/hr IV X1 ONE Stop: 06/14/25 20:36 Last Admin: 06/14/25 20:40 Dose: Not Given Documented By: PAUL Non-Admin Reason: Discontinued Sodium Chloride (Ns) 250 mls @ 250 mls/hr IV X1 ONE Stop: 06/14/25 21:24 Last Infusion: 06/14/25 23:04 Dose: Infused Documented By: Admin: 06/14/25 20:43 Dose: 250 mls/hr Documented By: PAUL Piperacillin/Tazobactam/Dextrose (Zosyn) 3.375 gm in 50 mls @ 100 mls/hr IV X1 ONE Stop: 06/14/25 21:36 Last Infusion: 06/14/25 23:04 Dose: Infused Documented By: Admin: 06/14/25 22:28 Dose: 100 mls/hr Documented By: PAUL Vancomycin HCl 1,000 mg/ (Sodium Chloride) 250 mls @ 150 mls/hr IV X1 ONE Stop: 06/14/25 22:45 Last Infusion: 06/15/25 00:51 Dose: Infused Documented By: Admin: 06/14/25 23:01 Dose: 150 mls/hr Documented By: PAUL Morphine Sulfate (Morphine Sulf Inj 10 Mg/Ml Vial) 4 mg IVP X1 ONE Stop: 06/14/25 19:52 Last Admin: 06/14/25 20:15 Dose: 4 mg Documented By: PRAVIN Ondansetron HCl (Ondansetron Inj 2 Mg/Ml Inj 2 Ml) 4 mg IVP X1 ONE; Protocol Stop: 06/14/25 18:35 Last Admin: 06/14/25 19:12 Dose: 4 mg Documented By: PAUL see above Consultations Consultation(s) initiated? (list below): Yes Consultation #1 (Physician, Specialty, Details): Discussed case with Dr. Thomas from orthopedic surgery regarding consultation. Discussed patients ED course, exam findings, labs, and radiology results. Agrees to consult. Time: 21:27 Consultation #2 (Physician, Specialty, Details): Discussed case with Dr. Conte from Hospitalist service regarding admission. Discussed patients ED course, exam findings, labs, and radiology results. The Hospitalist [agrees] to accept the patient for admission. Time: 00:49 Diagnosis Extremity Injury, Lower Differential Diagnosis: fracture of hip and other (hip dislocation, sepsis, UTI, pneumonia, viral syndrome, COVID, Influenza,\) Most likely diagnosis given after review of the tests above:: see clinical impression below Admission Indicated Admission indicated?: indicated Admission Request Was there a request for admission?: Yes Admission Attestation Admission request attestation: Discussed case with [] from Hospitalist service regarding admission. Discussed patients ED course, exam findings, labs, and radiology results. The Hospitalist [agrees,declines] to accept the patient for admission. Disposition Plan Disposition Plan: Admit Critical Care Time Critical Care Time Critical Care Time: Yes Total Critical Care Time (min.): 45 Attestation: The high probability of sudden, clinically significant deterioration in the patient?s condition required the highest level of my preparedness to intervene urgently. The services I provided to this patient were to treat and/or prevent clinically significant deterioration. Services included the following: chart data review, reviewing nursing notes and/or old charts, documentation time, human resources consultant collaboration regarding findings and treatment options, medication orders and management, direct patient care, vital sign assessments and ordering, interpreting and reviewing diagnostic studies and lab tests. Aggregate critical care time includes only time during which I was engaged in work directly related to the patient?s care, as described above, whether at bedside or elsewhere in the Emergency Department. It did not include time spent performing other reported procedures or the services of residents, students, nurses or physician assistants. Discharge Plan Plan Patient Disposition: Admit Acute Care w/in Hospital Prescriptions/Referrals Prescriptions/Med Rec: No Action nortriptyline 25 mg capsule 25 mg PO HS cholecalciferol (vitamin D3) [Vitamin D3] 2,000 UNIT capsule 2,000 unit PO QDAY Qty: 0 vitamin B complex Tablet 1 tab PO QDAY hydroxyzine HCl 10 mg tablet 10 mg PO QPM Patient Comments: TAKE 1 TABLET BY MOUTH NIGHTLY midodrine 10 mg Tablet 10 mg PO TID Rx Instructions: do not give last dose of day after 6PM or within 4 hrs of bedtime insulin aspart U-100 [Novolog FlexPen U-100 Insulin] 100 unit/mL (3 mL) insulin pen 5 unit SUBCUT TID Patient Comments: INJECT 5 UNIT SUBCUTANEOUSLY 3 TIMES A DAY BEFORE MEALS sevelamer carbonate 800 mg tablet 800 mg PO .with meals Patient Comments: TAKE 3 TABLETS BY MOUTH 3 TIMES A DAY WITH MEALS albuterol sulfate 90 mcg/actuation HFA aerosol inhaler 2 puff inhalation Q6H PRN (Reason: shortness of breath or wheezing) Qty: 6.7 0RF alum-mag hydroxide-simeth [Maalox Advanced] 200-200-20 mg/5 mL suspension 10 ml PO QID Qty: 3000 0RF Rx Instructions: administer between meals and at bedtime pantoprazole [Protonix] 40 mg tablet,delayed release (DR/EC) 40 mg PO BID Qty: 30 0RF bacitracin 500 unit/gram ointment 1 applic topical Q8H Qty: 14 0RF Referrals: No Primary/Family,Physician [Primary Care Provider] - In 1 week Problem List Clinical Impression: Acute sepsis, Pneumonia, Ground-level fall, Closed left hip fracture Patient/Caregiver Discharge Instructions Print Language: Nicaraguan Stand Alone Forms: [employer] Award Info., Patient Portal Info Letter
--- NOTE | 2025-06-14 18:37 | XR_ITS ---
Examination: Left femur 2 views TECHNIQUE: AP lateral left femur 2 views Date and time: June 14, 2025, 1937 hours INDICATIONS: Patient fell today with injury to the femur, femur pain. FINDINGS: Acute intertrochanteric fracture left hip No hip dislocation Shaft of the femur are intact IMPRESSION: Acute intertrochanteric fracture left hip
[2025-06-14] MEDS: fentaNYL CIT INJ 50 mCg/ML AMP 2ML IVP (19:12)
[2025-06-14] MEDS: ONDANSETRON INJ 2 MG/ML INJ 2 ML 4 MG IVP (19:12)
[2025-06-14] MEDS: MORPHINE SULF INJ 10 MG/ML VIAL 4 MG IVP (20:15)
--- NOTE | 2025-06-14 20:24 | EKG_ITS ---
[facility] Test Date: 2025-06-14 Pat Name: TA STONE Department: Room: - Gender: Male [employer]: : 1960 Requested By: Albert Kumar Order Number: [id number] Reading MD: Albert Kumar Measurements Intervals [place] Rate: 129 P: 47 CA: 133 QRS: 33 QRSD: 59 T: 70 QT: 334 QTc: 490 Interpretive Statements SINUS TACHYCARDIA LOW QRS VOLTAGE [QRS DEFLECTION < 0.5/1.0 mV IN LIMB/CHEST LEADS] NONSPECIFIC T-WAVE ABNORMALITY Compared to ECG 04/04/2025 17:06:16 T-wave abnormality now present Myocardial infarct finding no longer present /store/S0/[id number]/ecg/[id number].pdf
[2025-06-14] MEDS: SODIUM CHLORIDE 0.9% 250 ML IV (20:43)
--- NOTE | 2025-06-14 21:00 | PC.NURSE ---
DR. CAMILO NOTIFIED OF DIFFICULTY OBTAINING LABS AND IV ACCESS, CURRENT IV DISCONTINUED DUE TO IV INFLITRATION. DR. CAMILO SPOKE TO PLACE REGARDING CENTRAL LINE PLACEMENT, PATIENT VERBALIZED UNDERSTANDING. CONSENT FOR CENTRAL LINE OBTAINED.
--- NOTE | 2025-06-14 21:18 | XR_ITS ---
Examination: Left hip lateral single view TECHNIQUE: Lateral left hip single view Date and time: June 14, 20252015 p.m. INDICATIONS: Patient fell today with injury to the abdominal pain FINDINGS: Acute intertrochanteric fracture left hip without significant displacement IMPRESSION: Acute intertrochanteric fracture left hip
[2025-06-14 21:23] LABS: Basophils # (Auto) 0.1 Thou/mm3 (0.0-0.2); Basophils % (Auto) 0 % (0-2.5); Eosinophils # (Auto) 0.0 Thou/mm3 (0.0-0.5); Eosinophils % (Auto) 0 % (0-10); Hematocrit 37.3 % (41.0-53.0); Hemoglobin 12.5 g/dL (13.5-16.0); Immature Granulocytes Auto 0.06 Thou/mm3 (0.00-0.00); Lymphocytes # (Auto) 1.3 Thou/mm3 (1.0-4.8); Lymphocytes % (Auto) 9 % (10-50); Mean Corpuscular HGB Conc 33.5 g/dl (31.0-37.0); Mean Corpuscular Hemoglobin 32.6 pg (25.0-35.0); Mean Corpuscular Volume 97 fL (80-100); Monocytes # (Auto) 1.0 Thou/mm3 (0.0-0.8); Monocytes % (Auto) 7 % (0-12); Neutrophils # (Auto) 12.3 Thou/mm3 (1.8-7.7); Neutrophils % (Auto) 84 % (37-80); Nucleated Red Blood Cell # 0.00 Thou/mm3 (0.00-0.00); Nucleated Red Blood Cell % 0 /100 WBC (0); Platelet Count 90 Thou/mm3 (140-440); RDW Standard Deviation 52.8 fL (35.1-43.9); Red Blood Count 3.83 Miln/mm3 (4.50-5.90); White Blood Count 14.8 Thou/mm3 (3.8-10.6)
[2025-06-14 21:45] LABS: Alanine Aminotransferase 55 U/L (10-49); Albumin, Serum 2.8 gm/dL (3.4-4.8); Albumin/Globulin Ratio 0.8 (1.2-2.2); Alkaline Phosphatase 451 U/L (46-116); Anion Gap 11 (7-16); Aspartate Amino Transferase 41 U/L (0-34); BUN/Creatinine Ratio 6 Ratio (12-20); Bilirubin,Total 0.5 mg/dL (0.3-1.2); Blood Urea Nitrogen 13 mg/dL (9-23); Calcium 9.2 mg/dL (8.3-10.6); Calcium (Corrected) 10.2 mg/dL (8.5-10.1); Carbon Dioxide 26.5 mMol/L (20.0-31.0); Chloride 102 mMol/L (98-107); Creatinine (Component) 2.1 mg/dL (0.6-1.3); Estimated Creatinine Clearance 35.5 mL/min (>60); Globulin 3.4 gm/dL (2.3-3.5); Glucose 159 mg/dL (74-106); Osmolality,Calculated 280 (275-295); Potassium 4.0 mMol/L (3.4-5.1); Sodium 139 mMol/L (136-145); Total Protein 6.2 gm/dL (5.7-8.2); eGFR 35 See Note
[2025-06-14 22:26] LABS: Collection Type, Urine Clean Catch; WBC,Urine 0 /hpf (0-5)
[2025-06-14] MEDS: ACETAMINOPHEN 500 MG TABLET 1000 MG PO (22:27)
[2025-06-14] MEDS: PIPER/TAZO 3.375 GM PREMIX 3.375 GM/50 ML BAG IV (22:28)
[2025-06-14 22:54] LABS: Bilirubin,Urine Negative (Negative); Blood,Urine Negative (Negative); Clarity,Urine Clear (Clear/Hazy); Color,Urine Lt-Yellow (Lt Yel-Yel); Culture Indicated,Urine Not Indicated; Glucose, Urine 3+ (Negative); Hyaline Casts,Urine < 1 /hpf (0-1); Ketones,Urine Negative (Negative); Leukocyte Esterase,Urine Negative (Negative); Nitrite,Urine Negative (Negative); PH,Urine 8.5 (5.0-7.0); Protein,Urine 1+ (Neg - Trace); RBC,Urine 2 /hpf (0-3); Specific Gravity,Urine 1.013 (1.001-1.035); Squamous Epithelial Cell,Urine 1 /hpf (0-5); Urobilinogen,Urine Negative mg/dL (0.0-1.0)
[2025-06-14] MEDS: Vancomycin Inj 1,000 MG in SODIUM CHLORIDE 0.9% 250 ML 250 ML 150 MG IV (23:01)
[2025-06-14 23:28] LABS: Procalcitonin 0.35 ng/ml (0.0-0.49)
[2025-06-14 23:31] LABS: Lactate (Lactic Acid) 1.9 mMol/L (0.4-2.0)
--- NOTE | 2025-06-14 23:55 | XR_ITS ---
Examination: CT chest, without intravenous contrast. CT abdomen, without intravenous contrast. CT pelvis, without intravenous contrast. 2-D sagittal and coronal reconstructions. 3-D reconstructions. Date and time of exam:June 15, 2025 0021 hours INDICATIONS: Sepsis alert today CTDI vol (mgy) 10.1 DLP (MGycm)810 Technique: Multiple CT images, 3.0 mm slice thickness, obtained chest, abdomen, pelvis, with the high-resolution 64 slice scanner.. Sagittal and coronal 2-D reconstructions are obtained. 3-D reconstructions Low dose protocols were performed. One or more of the following dose reduction techniques were used; automated exposure control, adjustment of the mA and/or KV according to patient size, use of iterative reconstruction technique. Findings: Study is significantly limited without intravenous contrast High periaortic aortopulmonary window adenopathy Aortopulmonary arteries intact Mild to moderate enlargement cardiac contour with small pericardial effusions Prominent vascular congestion Edema and/or pneumonia at the lung bases with small right and moderate left pleural fluid No pneumothorax Manubrium and body of the sternum thoracic and lumbar vertebral bodies intact Multiple old bilateral rib fractures Cirrhosis, liver nodular in contour Mild ascites Distended gallbladder with gallbladder sludge versus small gallstones Spleen intact Absent right kidney Abdominal aorta intact Anasarca Negative for pneumoperitoneum Normal appendix Normal seminal vesicles Transverse prostate dimension 4.8 cm Marked thickening of the urinary bladder wall up to 13 mm Acute intertrochanteric fracture left hip Acute fracture greater trochanter right hip which appears to partly extend into the intertrochanteric region Acute fractures right fifth sacral and first coccygeal segments Acute fractures right first sacral wing without significant displacement IMPRESSION: Mild chronic heart failure pattern. Bibasilar edema and/or pneumonia Cirrhosis Mild ascites Recommend hepatobiliary sonography follow-up to assess distended gallbladder with small stones versus sludge Marked thickening of the urinary bladder wall, likely cystitis Acute intertrochanteric fracture left hip Acute fracture right hip involving the greater trochanter, MRI right hip without contrast follow up would best exclude intertrochanteric extension of this hip fracture Fractures is stable and first coccygeal segment Fractures right first sacral wing
--- NOTE | 2025-06-14 23:55 | XR_ITS ---
Examination: AP chest single view Technique one AP portable semiupright chest single view Date and time: June 15, 2025 0001 hours Comparison February 13, 2025 INDICATIONS: Preop hip fracture. FINDINGS: Bilateral lung opacity Normal heart size Right internal jugular dialysis catheter tip SVC Prominent vascular congestion IMPRESSION: Significant bilateral pneumonia, suspicious for mild associated heart failure
[2025-06-15] VITALS (14 sets, daily range): BP systolic 126–162; BP diastolic 80–99; PULSE 116–129; RESP 14–21; TEMP 36.3–38.1; O2SAT 90–99; BMI 27.8; BMI 28.0
--- NOTE | 2025-06-15 01:53 | PRELIM_ITS ---
CT scan of the chest, abdomen and pelvis without intravenous contrast (axial sections with sagittal and coronal reformats) June 15, 2025 at 0021 hours Clinical History: Sepsis without source. Comparison: Reference is made to the prior report dated December 08, 2024. Findings: The lungs are clear. There are moderate left and small right pleural effusions with compressive atelectasis of the underlying lung. There is extension of right pleural effusion into the major fissure. There are atelectatic changes in the posterior lungs. No pneumothorax. There are prominent mediastinal lymph nodes, likely reactive. The thoracic aorta demonstrates atheromatous calcification without evidence of aneurysm. Coronary artery calcification is noted. There is no pericardial effusion. There is a right jugular dialysis catheter with its tip in the right atrium. There is bilateral gynecomastia. The gallbladder is markedly distended likely due to prolonged fasting. There is a small calcific density in the posterior right lobe of liver. The right kidney is surgically absent. There is nonspecific left perinephric fat stranding. There is a 2.5 cm left renal cyst. The spleen, pancreas and adrenals are unremarkable on this noncontrast study. No evidence of bowel obstruction. The appendix is within normal limits. Gastric bypass changes are noted. There is moderate ascites. There is diffuse mesenteric and retroperitoneal fat stranding. The urinary bladder is incompletely distended at the time of the examination and appears mildly thick walled. There is no free air. The abdominal aorta demonstrates atheromatous calcification without evidence of aneurysm. Degenerative changes are identified in the spine. There is diffuse osteopenia. There is diffuse subcutaneous edema in the abdominal wall. There is an acute comminuted and mildly displaced left femoral intertrochanteric fracture with soft tissue swelling. There is also an acute minimally displaced fracture of S4 and S5 sacrum. Impression: 1. Acute comminuted and mildly displaced left femoral intertrochanteric fracture with soft tissue swelling. 2. Acute minimally displaced fracture of S4 and S5 sacrum. 3. Bilateral pleural effusions with compressive atelectasis of the underlying lung. 4. Moderate ascites and generalized anasarca, likely related to fluid retention or overload. 5. Other findings as described above. Discussion Details: Results verbally communicated to : Dr. Knox at 01:48 AM 06/15/2025 Report Electronically Signed By: Butch Stanford 06/15/2025 1:52:20 AM [EST]
--- NOTE | 2025-06-15 02:17 | ESHP_ITS ---
Documentation for date of: 06/15/25 [facility] History of Present Illness Chief complaint: Left hip pain s/p fall History of present illness: 65 y/o M with PMHx significant for ESRD (//Sun) with Dr. Chadwick, diabetes, CRISTIANO, BPH, gastric bypass presents from SNF with left hip pain s/p ground-level fall. Patient states he was attempting to use the bathroom when he simply fell over, did hit his head on the way down, but did not lose consciousness. Landed on his left side and experienced left hip pain prompting ED visit. Patient denies fever, chills, chest pain, shortness of breath, nausea, vomiting, abdominal pain. ED COURSE: Labs significant for: WBC 14.8, Pro-Guero negative, urinalysis negative, lactic acid negative, albumin 2.8. AST 41, ALT 55, ALP 451. Imaging significant for: Head CT negative. EKG unremarkable. Hip/fever/pelvis x-ray showing left intertrochanteric hip fracture. CT A/P prelim report shows generalized anasarca, bilateral pleural effusions, left hip fracture. Chest x- ray shows vascular congestion, possible superimposed pneumonia. Femoral cath line placed due to inability to achieve IV access. Patient received 500 mL normal saline, morphine, 1 g Tylenol, Zosyn and Vanco in the ED. Sepsis alert was called due to fever, tachycardia. Unclear source of infection. PMH: ESRD, DM, CRISTIANO, BPH PSH: Reports too many to remember , includes kidney removal and gastric bypass SH: Denies alcohol, tobacco, illicit drug use. Allergies:?NKDA Medications: Midodrine 10 mg 3 times daily, nortriptyline 25 mg at bedtime, Protonix 40 mg daily, sucralfate 10 mL daily Review of Systems Review of Systems Systems Reviewed: All systems reviewed, normal except as documented Past Medical History Past Medical History Comments PMH COMMENT: PMH: ESRD, DM, CRISTIANO, BPH PSH: Reports too many to remember , includes kidney removal and gastric bypass SH: Denies alcohol, tobacco, illicit drug use. Allergies:?NKDA Medications: Midodrine 10 mg 3 times daily, nortriptyline 25 mg at bedtime, Protonix 40 mg daily, sucralfate 10 mL daily Exam Vital Signs Temp Pulse Resp BP Pulse Ox O2 Del Method 101.3 F H 117 H 18 155/86 H 94 L Room Air 06/14/25 23:43 06/15/25 01:00 06/15/25 01:00 06/15/25 01:00 06/15/25 01:00 06/14/25 23:07 Narrative Exam PE: Gen: Well-developed and well-nourished. Diffuse edema, most prominent in upper limbs, anasarca. HEENT: NCAT, PERRLA, EOMI, MMM, anicteric conjunctivae. CVS: normal S1 and S2. No M/R/G. Sinus tachycardia. Right chest dialysis cath. Resp: CTA B/L. No rhonchi, rales, crackles or wheezing. Abd: soft, non-tender, non-distended. MSK: Good ROM in BUE & BLE. No rash. Multiple weeping wounds on bilateral upper extremities. Femoral central line. Left leg shortened and externally rotated, sensation, movement, and pulses intact. Neuro: CN II-XII grossly intact. Strength 5/5 in BUE & BLE. Alert and oriented x3. Psych: appropriate mood and affect. Results: Labs 06/14/25 21:09 06/14/25 21:09 Labs: Short CBC 06/14/25 Range/Units 21:09 WBC 14.8 H (3.8-10.6) Thou/mm3 Hgb 12.5 L (13.5-16.0) g/dL Hct 37.3 L (41.0-53.0) % Plt Count 90 L D (140-440) Thou/mm3 BMP 06/14/25 21:09 Sodium 139 Potassium 4.0 Chloride 102 Carbon Dioxide 26.5 BUN 13 Creatinine 2.1 H Glucose 159 H Calcium 9.2 Liver Function 06/14/25 Range/Units 21:09 Total Bilirubin 0.5 (0.3-1.2) mg/dL AST 41 H (0-34) U/L ALT 55 H (10-49) U/L Alkaline Phosphatase 451 H (46-116) U/L Albumin 2.8 L (3.4-4.8) gm/dL Urine 06/14/25 Range/Units 22:22 Urine Color Lt-Yellow (Lt Yel-Yel) Urine Clarity Clear (Clear/Hazy) Urine pH 8.5 H (5.0-7.0) Ur Specific [place] 1.013 (1.001-1.035) Urine Protein 1+ A (Neg - Trace) Urine Glucose (UA) 3+ A (Negative) Quality Measures Quality Measures sepsis Current suspected stage: sepsis Possible source: unknown Blood cultures ordered: yes Antibiotic ordered: Yes Medications Home Medications and Allergies Home Medications ?Medication ?Instructions ?Recorded ?Confirmed ?Type cholecalciferol (vitamin D3) 50 2,000 unit PO QDAY #0 caps 12/19/15 03/20/25 History mcg (2,000 unit) capsule (Vitamin D3) vitamin B complex 1 tab PO QDAY 04/01/1903/20 History nortriptyline 25 mg capsule 25 mg PO HS 11/12/2003/20 History hydroxyzine HCl 10 mg tablet 10 mg PO QPM 03/07/24 History insulin aspart U-100 100 unit/mL 5 unit subcut TID 01/2603/20/25 History (3 mL) subcutaneous pen (Novolog FlexPen U-100 Insulin aspart) midodrine 10 mg tablet 10 mg PO TID 03/07/24 History sevelamer carbonate 800 mg tablet 800 mg PO .with meal s 12/09/24 03/20/25 History Allergies Allergy/AdvReac Type Severity Reaction Status Date / Time house dust Allergy Verified 06/14/25 18:06 Visit Medications Acetaminophen (Acetaminophen 325 Mg Tablet) 650 mg PO Q6H PRN PRN Reason: Fever >100.4 or pain Stop: 07/15/25 01:45 Hydrocodone Bitart/Acetaminophen (Hydrocodone/Apap 5/325 Tablet) 1 tab PO Q4HR PRN PRN Reason: PAIN SCALE 4-10(Mod-Sev Stop: 06/20/25 01:45 Docusate Sodium (Docusate Sod 100 Mg Capsule) 100 mg PO QDAY PRN; Protocol PRN Reason: CONSTIPATION Stop: 07/15/25 01:45 Heparin Sodium (Porcine) (Heparin Sod Inj 5000 Unit/Ml Vial) 5,000 unit SC Q12HR ERIC Stop: 06/29/25 08:59 Piperacillin/Tazobactam/Dextrose (Zosyn) 50 mls @ 100 mls/hr IV Q8HR ERIC Stop: 06/22/25 01:51 Albumin Human (Albuminar-25 Ivpb) 12.5 gm in 50 mls @ 50 mls/hr IV X1 ONE Stop: 06/15/25 02:58 Morphine Sulfate (Morphine Sulf Inj 10 Mg/Ml Vial) 2 mg IVP Q2H PRN PRN Reason: PAIN SCALE 7-10 (Severe Stop: 06/20/25 01:45 Ondansetron HCl (Ondansetron Inj 2 Mg/Ml Inj 2 Ml) 4 mg IVP Q6H PRN; Protocol PRN Reason: NAUSEA OR VOMITING Stop: 07/15/25 01:45 Pharmacy Consult (Vancomycin Pharmacy To Dose 1 Each Each) 1 each IV QDAY ERIC Stop: 07/15/25 08:59 Sennosides (Senna Tablet) 1 tab PO QDAY PRN; Protocol PRN Reason: constipation Stop: 07/15/25 01:45 Discontinued Medications Acetaminophen (Acetaminophen 325 Mg Tablet) 1,000 mg PO X1 ONE Stop: 06/14/25 21:07 Last Admin: 06/14/25 22:20 Dose: Not Given Acetaminophen (Acetaminophen 500 Mg Tablet) 1,000 mg PO X1 ONE Stop: 06/14/25 22:19 Last Admin: 06/14/25 22:27 Dose: 1,000 mg Fentanyl Citrate (Fentanyl Cit Inj 50 Mcg/Ml Amp 2ml) 50 mcg IVP X1 ONE Stop: 06/14/25 18:35 Last Admin: 06/14/25 19:12 Dose: 50 mcg Sodium Chloride (Ns) 50 mls @ 250 mls/hr IV X1 ONE Stop: 06/14/25 20:36 Last Admin: 06/14/25 20:40 Dose: Not Given Sodium Chloride (Ns) 250 mls @ 250 mls/hr IV X1 ONE Stop: 06/14/25 21:24 Last Infusion: 06/14/25 23:04 Dose: Infused Piperacillin/Tazobactam/Dextrose (Zosyn) 3.375 gm in 50 mls @ 100 mls/hr IV X1 ONE Stop: 06/14/25 21:36 Last Infusion: 06/14/25 23:04 Dose: Infused Vancomycin HCl 1,000 mg/ (Sodium Chloride) 250 mls @ 150 mls/hr IV X1 ONE Stop: 06/14/25 22:45 Last Infusion: 06/15/25 00:51 Dose: Infused Morphine Sulfate (Morphine Sulf Inj 10 Mg/Ml Vial) 4 mg IVP X1 ONE Stop: 06/14/25 19:52 Last Admin: 06/14/25 20:15 Dose: 4 mg Ondansetron HCl (Ondansetron Inj 2 Mg/Ml Inj 2 Ml) 4 mg IVP X1 ONE; Protocol Stop: 06/14/25 18:35 Last Admin: 06/14/25 19:12 Dose: 4 mg Assessment & Plan Plan 65 y/o M with PMHx significant for ESRD (/) with Dr. Chadwick, diabetes, CRISTIANO, BPH, gastric bypass presents from SNF with left hip pain s/p ground-level fall admitted for left hip fracture and possible pneumonia. #Left hip intertrochanteric fracture Patient had a ground-level fall without loss of consciousness. CT neck imaging confirmed left hip fracture. Head CT negative. Patient initially in pain, relieved with morphine. Dr. Thomas on board, will take patient for surgery pending medical stabilization. - Dr. Thomas consulted, appreciate recommendations - [place] and morphine as needed for pain - N.p.o. pending procedure #Sepsis secondary to #CAP Sepsis alert called in ED due to fever 101.7, tachypnea, leukocytosis 14.8. Patient denies symptoms of fevers, chills, chest pain, shortness of breath, nausea, vomiting, dysuria. Chest x-ray shows vascular congestion with possible superimposed pneumonia, however unclear if this is the source. Lactic acid, Pro-Guero, urinalysis negative. Patient received 500 mL normal saline due to ESRD and anasarca. Sofa score 2. Endorgan damage demonstrated by acute liver injury. - Vancomycin pharmacy dosing (started 06/15) - Zosyn 3.375 g IV every 8 hours (started 06/15) - Blood cultures pending - Rapid flu test pending #ESRD (//Sun) #Anasarca Patient has ESRD as stated. Follows with spout liner helper Dr. Chadwick. Patient has significant anasarca, and generalized primary and bilateral upper extremities. Albumin 2.8. - Dr. Chadwick consulted, appreciate recommendations - Hemodialysis as per patient's usual schedule - Albumin x 1 given - Judicious use of fluids - Renally dose medications #Acute liver injury Transaminitis: AST 41, ALT 55, ALP 451. Possibly due to infection and/or hip fracture as above. - Monitor daily labs - Avoid hepatotoxins #Diabetes Patient history as stated. Patient takes insulin as needed for significantly elevated blood sugar, which he reports is rare. A1c 5.7% as of 12/09/24. - ISS - A1c ordered, follow-up #CRISTIANO Patient has history of obstructive sleep apnea. - BiPAP as needed at bedtime DVT prophylaxis: Heparin, hold if procedure scheduled GI prophylaxis: None Diet: N.p.o. Lines: Dialysis port, femoral central line Code status: DNR Plan of care discussed with attending Dr. Conte. Dmitry Alexis MD PGY-2 Attending Provider Attestation/Addendum I attest that I was physically present for the evaluation, physical examination, lab and imaging review of the patient with the residents. I discussed the case with the residents and agree with the findings and plans of care as documented above. After examination of the patient and review of the clinical data I feel that this patient needs admission to the hospital for further treatment/evaluation. Patient is a 65 years old male with past medical history of ESRD on hemodialysis, diabetes mellitus, CRISTIANO, BPH, gastric bypass who presented to the ED from [facility] with complaint of left hip pain after a ground-level fall. Patient was trying to use the restroom, while trying to sit down, his legs gave up and he had a fall. He did hit his head but denies any loss of consciousness or neurological symptoms. In the ED, initial vitals show BP of 156/89, pulse 114, WBC 14.8, hemoglobin 12.5, platelets 90, BUN/creatinine 13/2.1, calcium 10.2, AST 41, ALT 55, ALP 451. Hip, femur, pelvis x-ray shows left intertrochanteric hip fracture. CT chest/abdomen/pelvis was done, showed generalized anasarca, bilateral pleural effusions and left hip fracture. Chest x-ray showed infiltrates concerning for pneumonia and vascular congestion. Orthopedics was contacted by ED, will follow patient with us. We will admit the patient for management of left hip intertrochanteric fracture. Started on analgesic regimen, orthopedics on board. Started on broad-spectrum IV antibiotics including vancomycin and Zosyn for sepsis secondary to pneumonia. Cultures are obtained. We will obtain nephrology consult for hemodialysis arrangement. We will also infuse albumin since patient has albumin of 2.8. Patient did not receive small fluid bolus in the ED. Patient also noted to have elevated liver enzymes, we will follow-up with morning labs. Started on insulin regimen for diabetes and BiPAP at night for CRISTIANO. Rae Conte MD
[2025-06-15] MEDS: ALBUMIN HUMAN 25% IVPB 12.5 GM/50 ML BTL IV (02:33)
[2025-06-15] MEDS: ACETAMINOPHEN 325 MG TABLET 650 MG PO (03:43)
--- NOTE | 2025-06-15 05:19 | PC.NURSE ---
AARON FROM [facility] CALLED TO FIND OUT ABOUT PATIENTS STATUS.
[2025-06-15] MEDS: PIPER/TAZO 3.375 GM PREMIX 3.375 GM/50 ML BAG IV (06:28)
[2025-06-15 08:05] LABS: Basophils # (Auto) 0.1 Thou/mm3 (0.0-0.2); Basophils % (Auto) 1 % (0-2.5); Eosinophils # (Auto) 0.0 Thou/mm3 (0.0-0.5); Eosinophils % (Auto) 0 % (0-10); Hematocrit 29.4 % (41.0-53.0); Hemoglobin 9.8 g/dL (13.5-16.0); Immature Granulocytes Auto 0.10 Thou/mm3 (0.00-0.00); Lymphocytes # (Auto) 1.1 Thou/mm3 (1.0-4.8); Lymphocytes % (Auto) 7 % (10-50); Mean Corpuscular HGB Conc 33.3 g/dl (31.0-37.0); Mean Corpuscular Hemoglobin 32.5 pg (25.0-35.0); Mean Corpuscular Volume 97 fL (80-100); Monocytes # (Auto) 1.0 Thou/mm3 (0.0-0.8); Monocytes % (Auto) 7 % (0-12); Neutrophils # (Auto) 12.1 Thou/mm3 (1.8-7.7); Neutrophils % (Auto) 84 % (37-80); Nucleated Red Blood Cell # 0.00 Thou/mm3 (0.00-0.00); Nucleated Red Blood Cell % 0 /100 WBC (0); Platelet Count 152 Thou/mm3 (140-440); RDW Standard Deviation 53.1 fL (35.1-43.9); Red Blood Count 3.02 Miln/mm3 (4.50-5.90); White Blood Count 14.4 Thou/mm3 (3.8-10.6)
[2025-06-15 08:19] LABS: Alanine Aminotransferase 31 U/L (10-49); Albumin, Serum 2.2 gm/dL (3.4-4.8); Albumin/Globulin Ratio 0.9 (1.2-2.2); Alkaline Phosphatase 326 U/L (46-116); Anion Gap 8 (7-16); Aspartate Amino Transferase 19 U/L (0-34); BUN/Creatinine Ratio 7 Ratio (12-20); Bilirubin,Total 0.6 mg/dL (0.3-1.2); Blood Urea Nitrogen 15 mg/dL (9-23); Calcium 8.3 mg/dL (8.3-10.6); Calcium (Corrected) 9.7 mg/dL (8.5-10.1); Carbon Dioxide 27.9 mMol/L (20.0-31.0); Chloride 103 mMol/L (98-107); Creatinine (Component) 2.3 mg/dL (0.6-1.3); Estimated Creatinine Clearance 35.2 mL/min (>60); Globulin 2.5 gm/dL (2.3-3.5); Glucose 142 mg/dL (74-106); Magnesium 1.4 mg/dL (1.6-2.6); Osmolality,Calculated 280 (275-295); Potassium 3.8 mMol/L (3.4-5.1); Sodium 139 mMol/L (136-145); Total Protein 4.7 gm/dL (5.7-8.2); eGFR 31 See Note
--- NOTE | 2025-06-15 08:26 | ESPR_ITS ---
<Statement entered by Alex Corley MD - 06/15/25 20:52> Patient was examined and case was reviewed with team including attending physician. Note reviewed, I agree with most of its contents and agree with the patient's care as documented by Dr. Bunch Patient seen today at the bedside. Vital signs stable at this time. Patient has bilateral hip fractures. Spoke to Ortho who recommended cardiac clearance and Hemodialysis prior to surgery likely on Sunday. Patient will also require MRI to evaluate extension of right sided fracture. Patient was admitted for Sepsis secondary to UTI and is currently on Antibiotic treatment. Alex Corley MD PGY-2 Documentation for date of: 06/15/25 Subjective Subjective Interval history: Tmax 101.3, tachycardic 120s, systolic BP 140s to 1 50s, diastolic 80s to 90s, SPO2 appropriate on room air. Imaging showed bilateral hip fracture, coccyx fracture. Consulted Dr. Thomas, plan to operate on Sunday. Consulted Dr. Stephens, patient will get HD tomorrow. Consulted Dr. Yeyo Harrington for cardiac clearance. Patient evaluated at bedside. Reports pain in bilateral hips. 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 Saad Olmos). Exam Vital Signs Temp Pulse Resp BP Pulse Ox O2 Del Method 98.1 F 124 H 21 H 158/89 H 92 L Room Air 06/15/25 06:05 06/15/25 06:05 06/15/25 06:05 06/15/25 06:05 06/15/25 06:05 06/15/25 06:05 Narrative Exam General: No acute distress, well nourished Eye: PERRL, EOMI, normal conjunctiva, no scleral icterus HENT: Normocephalic, atraumatic, normal hearing, moist oral mucosa Neck: Supple, non-tender, no JVD, no lymphadenopathy Lungs: Clear to auscultation bilaterally, non-labored respirations, symmetric chest rise, no use of accessory muscles Heart: Normal S1 and S2, no S3 or S4 appreciated. Normal rate and regular rhythm, no murmurs, rubs gallops, or edema. Peripheral pulses intact bilaterally, capillary refill brisk distally. Anasarca, tachycardic to 120s. Right chest dialysis catheter in place. Abdomen: Soft, non-tender, non-distended, normal bowel sounds. No guarding or rebound tenderness. Musculoskeletal: Left leg and externally rotated position. Skin: Skin is warm, dry, no rashes or lesions. Neurologic: Alert, awake and oriented x3. CN II-XII grossly intact. Sensation to light touch intact bilaterally and symmetric in lower extremities. No focal neuro deficits. No signs of meningeal irritation noted. Psychiatric: Cooperative, appropriate mood and affect Objective Labs 06/16/25 05:57 06/16/25 05:57 Labs: Laboratory Results - last 24 hr 06/14/25 06/14/25 06/14/25 21:09 21:20 22:22 WBC 14.8 H RBC 3.83 L Hgb 12.5 L Hct 37.3 L MCV 97 MCH 32.6 MCHC 33.5 RDW Std Deviation 52.8 H Plt Count 90 L D Neut % (Auto) 84 H Lymph % (Auto) 9 L Knott % (Auto) 7 Eos % (Auto) 0 Baso % (Auto) 0 Neut # (Auto) 12.3 H Lymph # (Auto) 1.3 Knott # (Auto) 1.0 H Eos # (Auto) 0.0 Baso # (Auto) 0.1 Immature Gran # (Auto) 0.06 H Absolute Nucleated RBC 0.00 Immature Gran % 0 Nucleated RBC % 0 Sodium 139 Potassium 4.0 Chloride 102 Carbon Dioxide 26.5 Anion Gap 11 BUN 13 Creatinine 2.1 H Estim Creat Clear Calc 35.5 L eGFR 35 L BUN/Creatinine Ratio 6 L Glucose 159 H Calculated Osmolality 280 Lactic Acid 1.9 Calcium 9.2 Corrected Calcium 10.2 H Magnesium Total Bilirubin 0.5 AST 41 H ALT 55 H Alkaline Phosphatase 451 H Total Protein 6.2 Albumin 2.8 L Globulin 3.4 Albumin/Globulin Ratio 0.8 L Procalcitonin 0.35 Ur Collection Type Clean Catch Urine Color Lt-Yellow Urine Clarity Clear Urine pH 8.5 H Ur Specific [place] 1.013 Urine Protein 1+ A Urine Glucose (UA) 3+ A Urine Ketones Negative Urine Blood Negative Urine Nitrite Negative Urine Bilirubin Negative Urine Urobilinogen (Auto) Negative Ur Leukocyte Esterase Negative Urine RBC 2 Urine WBC 0 Ur Squamous Epith Cells 1 Urine Bacteria None Hyaline Casts < 1 Ur Culture Indicated? Not Indicated 06/15/25 07:20 WBC 14.4 H RBC 3.02 L Hgb 9.8 L D Hct 29.4 L MCV 97 MCH 32.5 MCHC 33.3 RDW Std Deviation 53.1 H Plt Count 152 D Neut % (Auto) 84 H Lymph % (Auto) 7 L Knott % (Auto) 7 Eos % (Auto) 0 Baso % (Auto) 1 Neut # (Auto) 12.1 H Lymph # (Auto) 1.1 Knott # (Auto) 1.0 H Eos # (Auto) 0.0 Baso # (Auto) 0.1 Immature Gran # (Auto) 0.10 H Absolute Nucleated RBC 0.00 Immature Gran % 1 H Nucleated RBC % 0 Sodium 139 Potassium 3.8 Chloride 103 Carbon Dioxide 27.9 Anion Gap 8 BUN 15 Creatinine 2.3 H Estim Creat Clear Calc 35.2 L eGFR 31 L BUN/Creatinine Ratio 7 L Glucose 142 H Calculated Osmolality 280 Lactic Acid Calcium 8.3 Corrected Calcium 9.7 Magnesium 1.4 L Total Bilirubin 0.6 AST 19 ALT 31 Alkaline Phosphatase 326 H D Total Protein 4.7 L Albumin 2.2 L D Globulin 2.5 Albumin/Globulin Ratio 0.9 L Procalcitonin Ur Collection Type Urine Color Urine Clarity Urine pH Ur Specific [place] Urine Protein Urine Glucose (UA) Urine Ketones Urine Blood Urine Nitrite Urine Bilirubin Urine Urobilinogen (Auto) Ur Leukocyte Esterase Urine RBC Urine WBC Ur Squamous Epith Cells Urine Bacteria Hyaline Casts Ur Culture Indicated? Quality Measures Quality Measures sepsis Current suspected stage: sepsis Possible source: unknown Blood cultures ordered: yes Antibiotic ordered: Yes Assessment & Plan Assessment Current Active Medications: Generic Name Dose Route Start Last Admin Trade Name Erum PRN Reason Stop Dose Admin Acetaminophen 650 mg 06/15/25 01:46 06/15/25 03:43 Acetaminophen 325 Mg Tablet PO 07/15/25 01:45 650 mg Q6H PRN Administration Fever >100.4 or pain Hydrocodone Bitart/Acetaminophen 1 tab 06/15/25 02:25 Hydrocodone/Apap 5/325 Tablet PO 06/20/25 01:45 Q4HR PRN PAIN SCALE 4-6 (Moderate Dextrose 25 ml 06/15/25 03:01 Dextrose 50%-Water Inj 50 Ml Syringe IV 07/15/25 03:00 Q15MIN PRN BG 50-70 responsive npo pt Dextrose 50 ml 06/15/25 03:01 Dextrose 50%-Water Inj 50 Ml Syringe IV 07/15/25 03:00 Q15MIN PRN BG <50 OR BG <70 & pt unresponsive Docusate Sodium 100 mg 06/15/25 01:46 Docusate Sod 100 Mg Capsule PO 07/15/25 01:45 QDAY PRN CONSTIPATION Protocol Glucagon 1 mg 06/15/25 03:01 Glucagon Inj 1 Mg Vial IM Q15MIN PRN BG <70, and no IV access Heparin Sodium (Porcine) 5,000 unit 06/15/25 09:00 06/15/25 08:15 Heparin Sod Inj 5000 Unit/Ml Vial SC 06/29/25 08:59 Not Given Q12HR ERIC Piperacillin/Tazobactam/Dextrose 3.375 gm in 50 mls @ 100 mls/hr 06/15/25 06:00 06/15/25 06:28 Zosyn IV 06/22/25 05:59 100 mls/hr Q8HR ERIC Administration Vancomycin HCl 200 mls @ 120 mls/hr 06/15/25 10:00 Vancomycin/Water 1gm Ivpb IV 06/15/25 11:39 X1 ONE Insulin Human Lispro 0 unit 06/15/25 06:00 06/15/25 06:27 Insulin Lispro (Admelog) 1 Unit/0.01 Ml Unit SC 07/15/25 05:59 Not Given Q6HR ERIC Protocol Morphine Sulfate 2 mg 06/15/25 01:46 Morphine Sulf Inj 10 Mg/Ml Vial IVP 06/20/25 01:45 Q2H PRN PAIN SCALE 7-10 (Severe Ondansetron HCl 4 mg 06/15/25 01:46 Ondansetron Inj 2 Mg/Ml Inj 2 Ml IVP 07/15/25 01:45 Q6H PRN NAUSEA OR VOMITING Protocol Pharmacy Consult 1 each 06/15/25 09:00 Vancomycin Pharmacy To Dose 1 Each Each IV 07/15/25 08:59 QDAY PRN PROTOCOL Sennosides 1 tab 06/15/25 01:46 Senna Tablet PO 07/15/25 01:45 QDAY PRN constipation Protocol Plan 65 y/o M with PMHx significant for ESRD (T//Sun) with Dr. Chadwick, diabetes, CRISTIANO, BPH, gastric bypass presents from SNF with left hip pain s/p ground-level fall admitted for left hip fracture and possible pneumonia. #Left hip intertrochanteric fracture #Right hip greater trochanter fracture #First coccygeal segment fracture #Right first sacral wing fracture Patient had a ground-level fall without loss of consciousness. CT imaging confirmed left hip fracture. Head CT negative. Patient initially in pain, relieved with morphine. Dr. Thomas on board, will take patient for surgery pending medical stabilization. Plan: - Pending MRI right and left hip w/o - Dr. Thomas consulted, appreciate recommendations - will do surgery Sunday. N.p.o. Sunday after midnight. - Consulted cardio for cardiac clearance (Dr. Yeyo Harrington) - [place] 5 and morphine 2 as needed for pain #Sepsis #Bibasilar CAP Sepsis alert called in ED due to fever 101.7, tachypnea, tachycardia, leukocytosis 14.8. End-organ damage evidenced by initial transaminitis Lactic acid, Pro-Guero, UA negative. Imaging shows vascular congestion, bibasilar PNA Given 250 mL normal saline due to ESRD and anasarca. Sofa score 2. Plan: - Vancomycin pharmacy dosing (started 06/15) - Zosyn 4.5 g IV q12h (started 06/15) (renally dosed) - Blood cultures pending - Pending rapid flu, COVID #ESRD on HD () #Anasarca Follows with marine drafter Dr. Chadwick. Cr 2.3 (at baseline) Albumin 2.2 Given albumin x 1 Plan: - Consulted nephrology (Dr. Stephens), appreciate recommendations - Hemodialysis on Sunday - Albumin x 1 given - Renally dose medications #Acute liver injury - resolved #Transaminitis - resolved #Elevated alk phos Elevated alk phos most likely 2/[address] showed cirrhosis, mild ascites Plan: - CTM with daily CMP - Avoid hepatotoxins #Diabetes Patient takes insulin as needed for significantly elevated blood sugar, which he reports is rare. UA 3+ glucose, 1+ protein A1C 5.4 Plan: - ISS #CRISTIANO Patient has history of obstructive sleep apnea. Plan: - BiPAP as needed at bedtime #Normocytic normochromic anemia Plan: - CTM with daily CBC #Hypomagnesemia Plan: - CTM -Replete as needed Dispo: b/l hip fx surgery, CAP management DVT prophylaxis: Heparin, hold if procedure scheduled GI prophylaxis: None Bowel reg: Docusate, Senna Diet: Renal (NPO after midnight on 06/[address] Thomas) Pain mgmt: Tylenol, [place] 5/325 mg q4h, morphine 2 mg IV q2h Lines: Dialysis port, femoral central line Code status: DNR Plan discussed with Dr. Hanna and Dr. Susan Bunch MD PGY1 Attending Provider Attestation/Addendum I, Mikayla Davis DO, attest that I was physically present for the lerma portions of the service and evaluated the patient with the resident and I reviewed and discussed the case with the resident and agree with the resident's findings and plans of care as documented above Patient seen and this a.m. Patient reports pain in his left hip after he has sustained a fall going to the bathroom yesterday.CT scan was done yesterday in the ED showing evidence of marked thickening of urinary bladder wall, acute intertrochanteric fracture left hip, acute fracture right hip involving the greater trochanter, stable fractures in the first coccygeal segment on right for sacral wing. He is also noted to have mild chronic heart failure pattern, bibasilar edema/pneumonia, cirrhosis and mild ascites. He is noted to have a distended gallbladder with small stones versus sludge. However, patient denies any right upper quadrant pain and no nausea and vomiting. Patient denies any loss of consciousness, but endorsed hitting his head. He denies any dizziness or visual changes at this time. Patient is a dialysis patient. Nephrology consulted. Patient is due for dialysis tomorrow. He denies any active chest pain or shortness of breath. He denies any pain in his right hip either. Orthopedic surgery was consulted. Recommends follow-up MRI of the right hip to assess for extension of fracture. Patient states that he had a previous fall that resulted in the sacral fractures which she was aware of. Cardiology consulted for cardiac clearance.
[2025-06-15 08:31] LABS: Glucose Estimated Average 108 mg/dL (80-131); Hemoglobin A1C 5.4 % Hgb (4.8-6.0)
--- NOTE | 2025-06-15 08:46 | ESCONSULT_ITS ---
HPI Data of Consult Consult date: 06/15/25 Requesting Physician: Dmitry Alexis MD Admitting Provider: Dmitry Alexis MD Attending Provider: Dmitry Alexis MD Primary Care Provider: Physician No Primary/Family Consult Narrative Reason for consult: hx ESRD T/T/S History of present illness: Mr. Gonzalez is a 65 y/o M with PMHx significant for ESRD (//Sun) with Dr. Chadwick at [facility], diabetes, CRISTIANO, BPH, gastric bypass presents from SNF with left hip pain s/p ground-level fall with witnessed head strike. Pt states that he was standing, and while bending down to lower his pants to use the restroom, he started to fall forward. His nurse was with him and tried to catch him but they both fell to the ground. no LOC. He landed on his Left side. ROS denies, fever, chills, chest pain, shortness of breath, nausea, vomiting, no dizziness, no vision changes, or abdominal pain. ED COURSE: Labs significant for: WBC 14.8, Pro-Guero negative, urinalysis negative, Imaging significant for: * Head CT negative. * EKG unremarkable. * Hip/femur/pelvis x-ray showing left intertrochanteric hip fracture. * CT A/P Mild chronic heart failure pattern, cirrhosis, distended gb, acute intertrochanteric fracture L, Fractures of R sacral wing. absent R kidney * CXR with vascular congestion, possible superimposed pna Femoral cath line placed due to inability to achieve IV access. Patient received 500 mL normal saline, morphine, 1 g Tylenol, Zosyn and Vanco in the ED. Sepsis alert was called due to fever, tachycardia. Unclear source of infection. PMH: ESRD, DM, CRISTIANO, BPH PSH: Reports too many to remember , includes kidney right removal and gastric bypass SH: Denies alcohol, tobacco, illicit drug use. Allergies:?NKDA Medications: Midodrine 10 mg 3 times daily, nortriptyline 25 mg at bedtime, Protonix 40 mg daily, sucralfate 10 mL daily 06/15/2025 Nephorology consulted for ESRD on TTS HD. patient seen and examined at bedside. reports that he has been attending HD regularly at [facility]. He states that he has L hip and femur fracture with plan for surgery this sunday, 06/[address] Thomas. On exam, he has BUE edema in the forearms to elbow, with RUE contusions on forearm 2/2 needle sticks not his ground level fall. He has nl work of breathing, tachycardic on exam to 120s. He has catheter on R chest for HD. Cr. 2.3 from 2.1 BUN 15 from 13. He states that he is pending a fistula on the LUE. Plan for HD 06/16 prior to surgery on 06/17. cc:: cc: Dmitry Alexis MD Review of Systems Review of Systems Narrative Review of Systems: as per HPI Past Medical History Surgical History OTHER SURGICAL HX: gastric bypass, and R kidney removed. Exam Vital Signs Temp Pulse Resp BP Pulse Ox O2 Del Method 97.4 F 124 H 18 152/99 H 94 L Room Air 06/15/25 08:00 06/15/25 08:00 06/15/25 08:00 06/15/25 08:00 06/15/25 08:00 06/15/25 08:00 Narrative Exam GENERAL: no acute distress, AAO x3, comfortably laying in bed HEENT: Head AT/ NC. Mucous membranes moist. PERRL. some small bruises on the face. CARDIOVASCULAR: tachycardic to 120s on monitor . Normal S1/S2, No m/r/g. LLE 1+ edema to mid hernandez, RLE with skin wrinkling, trace edema. BUE with edema to elbows, query lymphedema? R HD catheter RESPIRATORY: nl work of breathing . No wheezing, rhonchi, crackles, in upper lung melgar, GASTROINTESTINAL: Abdomen soft, non tender no palpable masses. Bowel sounds present, fem cath. MUSCULOSKELETAL:? No cyanosis, no visible joint swelling. pt wearing gloves because of feeling cold, and socks, pulses intact in all 4 extrem. LLE flexed and abducted, hernandez is tender to palpation. NEUROLOGICAL: CN II-XII grossly intact. No focal deficits. Sensation intact, symmetric. speech is slow. PSYCHIATRIC: Awake and alert, not agitated, normal mood and affect. SKIN: RUE contusions violacious, on dorsal forearm. Results Labs 06/15/25 07:20 06/15/25 07:20 Labs: Short CBC 06/14/25 06/15/25 Range/Units 21:09 07:20 WBC 14.8 H 14.4 H (3.8-10.6) Thou/mm3 Hgb 12.5 L 9.8 L D (13.5-16.0) g/dL Hct 37.3 L 29.4 L (41.0-53.0) % Plt Count 90 L D 152 D (140-440) Thou/mm3 BMP 06/14/25 06/15/25 21:09 07:20 Sodium 139 139 Potassium 4.0 3.8 Chloride 102 103 Carbon Dioxide 26.5 27.9 BUN 13 15 Creatinine 2.1 H 2.3 H Glucose 159 H 142 H Calcium 9.2 8.3 Liver Function 06/14/25 06/15/25 Range/Units 21:09 07:20 Total Bilirubin 0.5 0.6 (0.3-1.2) mg/dL AST 41 H 19 (0-34) U/L ALT 55 H 31 (10-49) U/L Alkaline Phosphatase 451 H 326 H D (46-116) U/L Albumin 2.8 L 2.2 L D (3.4-4.8) gm/dL Urine 06/14/25 Range/Units 22:22 Urine Color Lt-Yellow (Lt Yel-Yel) Urine Clarity Clear (Clear/Hazy) Urine pH 8.5 H (5.0-7.0) Ur Specific [place] 1.013 (1.001-1.035) Urine Protein 1+ A (Neg - Trace) Urine Glucose (UA) 3+ A (Negative) Quality Measures Quality Measures sepsis Current suspected stage: sepsis (end organ damage with acute liver injury. ) Possible source: unknown Blood cultures ordered: yes Antibiotic ordered: Yes Medications Home Medications and Allergies Home Medications ?Medication ?Instructions ?Recorded ?Confirmed ?Type cholecalciferol (vitamin D3) 50 2,000 unit PO QDAY #0 caps 12/19/15 06/15/25 History mcg (2,000 unit) capsule (Vitamin D3) vitamin B complex 1 tab PO QDAY 04/01/1906/15 History nortriptyline 25 mg capsule 25 mg PO HS 11/12/2006/15 History hydroxyzine HCl 10 mg tablet 10 mg PO QPM PRN itching 03/07/24 06/15/25 History insulin aspart U-100 100 unit/mL 5 unit subcut AC 01/2606/15/25 History (3 mL) subcutaneous pen (Novolog FlexPen U-100 Insulin aspart) midodrine 10 mg tablet 10 mg PO TID 03/07/24 History sucralfate 100 mg/mL oral 10 ml PO Q6H 06/15/25 History suspension Allergies Allergy/AdvReac Type Severity Reaction Status Date / Time house dust Allergy Verified 06/14/25 18:06 Visit Medications Acetaminophen (Acetaminophen 325 Mg Tablet) 650 mg PO Q6H PRN PRN Reason: Fever >100.4 or pain Stop: 07/15/25 01:45 Last Admin: 06/15/25 03:43 Dose: 650 mg Hydrocodone Bitart/Acetaminophen (Hydrocodone/Apap 5/325 Tablet) 1 tab PO Q4HR PRN PRN Reason: PAIN SCALE 4-6 (Moderate Stop: 06/20/25 01:45 Dextrose (Dextrose 50%-Water Inj 50 Ml Syringe) 25 ml IV Q15MIN PRN PRN Reason: BG 50-70 responsive npo pt Stop: 07/15/25 03:00 Dextrose (Dextrose 50%-Water Inj 50 Ml Syringe) 50 ml IV Q15MIN PRN PRN Reason: BG <50 OR BG <70 & pt unresponsive Stop: 07/15/25 03:00 Docusate Sodium (Docusate Sod 100 Mg Capsule) 100 mg PO QDAY PRN; Protocol PRN Reason: CONSTIPATION Stop: 07/15/25 01:45 Glucagon (Glucagon Inj 1 Mg Vial) 1 mg IM Q15MIN PRN PRN Reason: BG <70, and no IV access Heparin Sodium (Porcine) (Heparin Sod Inj 5000 Unit/Ml Vial) 5,000 unit SC Q12HR ERIC Stop: 06/29/25 08:59 Last Admin: 06/15/25 08:15 Dose: Not Given Piperacillin/Tazobactam/Dextrose (Zosyn) 3.375 gm in 50 mls @ 100 mls/hr IV Q8HR ERIC Stop: 06/22/25 05:59 Last Admin: 06/15/25 06:28 Dose: 100 mls/hr Vancomycin HCl (Vancomycin/Water 1gm Ivpb) 200 mls @ 120 mls/hr IV X1 ONE Stop: 06/15/25 11:39 Magnesium Sulfate (Magnesium Sulfate Ivpb) 2 gm in 50 mls @ 25 mls/hr IV X1 ONE Stop: 06/15/25 10:28 Insulin Human Lispro (Insulin Lispro (Admelog) 1 Unit/0.01 Ml Unit) 0 unit SC Q6HR ERIC; Protocol Stop: 07/15/25 05:59 Last Admin: 06/15/25 06:27 Dose: Not Given Morphine Sulfate (Morphine Sulf Inj 10 Mg/Ml Vial) 2 mg IVP Q2H PRN PRN Reason: PAIN SCALE 7-10 (Severe Stop: 06/20/25 01:45 Ondansetron HCl (Ondansetron Inj 2 Mg/Ml Inj 2 Ml) 4 mg IVP Q6H PRN; Protocol PRN Reason: NAUSEA OR VOMITING Stop: 07/15/25 01:45 Pharmacy Consult (Vancomycin Pharmacy To Dose 1 Each Each) 1 each IV QDAY PRN PRN Reason: PROTOCOL Stop: 07/15/25 08:59 Sennosides (Senna Tablet) 1 tab PO QDAY PRN; Protocol PRN Reason: constipation Stop: 07/15/25 01:45 Discontinued Medications Acetaminophen (Acetaminophen 325 Mg Tablet) 1,000 mg PO X1 ONE Stop: 06/14/25 21:07 Last Admin: 06/14/25 22:20 Dose: Not Given Acetaminophen (Acetaminophen 500 Mg Tablet) 1,000 mg PO X1 ONE Stop: 06/14/25 22:19 Last Admin: 06/14/25 22:27 Dose: 1,000 mg Hydrocodone Bitart/Acetaminophen (Hydrocodone/Apap 5/325 Tablet) 1 tab PO Q4HR PRN PRN Reason: PAIN SCALE 4-10(Mod-Sev Stop: 06/20/25 01:45 Fentanyl Citrate (Fentanyl Cit Inj 50 Mcg/Ml Amp 2ml) 50 mcg IVP X1 ONE Stop: 06/14/25 18:35 Last Admin: 06/14/25 19:12 Dose: 50 mcg Sodium Chloride (Ns) 50 mls @ 250 mls/hr IV X1 ONE Stop: 06/14/25 20:36 Last Admin: 06/14/25 20:40 Dose: Not Given Sodium Chloride (Ns) 250 mls @ 250 mls/hr IV X1 ONE Stop: 06/14/25 21:24 Last Infusion: 06/14/25 23:04 Dose: Infused Piperacillin/Tazobactam/Dextrose (Zosyn) 3.375 gm in 50 mls @ 100 mls/hr IV X1 ONE Stop: 06/14/25 21:36 Last Infusion: 06/14/25 23:04 Dose: Infused Vancomycin HCl 1,000 mg/ (Sodium Chloride) 250 mls @ 150 mls/hr IV X1 ONE Stop: 06/14/25 22:45 Last Infusion: 06/15/25 00:51 Dose: Infused Albumin Human (Albuminar-25 Ivpb) 12.5 gm in 50 mls @ 50 mls/hr IV X1 ONE Stop: 06/15/25 02:58 Last Infusion: 06/15/25 03:34 Dose: Infused Morphine Sulfate (Morphine Sulf Inj 10 Mg/Ml Vial) 4 mg IVP X1 ONE Stop: 06/14/25 19:52 Last Admin: 06/14/25 20:15 Dose: 4 mg Ondansetron HCl (Ondansetron Inj 2 Mg/Ml Inj 2 Ml) 4 mg IVP X1 ONE; Protocol Stop: 06/14/25 18:35 Last Admin: 06/14/25 19:12 Dose: 4 mg Assessment & Plan Plan 65 y/o M with PMHx significant for ESRD (T//Sun) with Dr. Chadwick at [facility], hx of R renal kidney removal, well controlled T2DM , CRISTIANO, BPH, gastric bypass presents from SNF with left hip pain s/p ground-level fall admitted for left hip fracture and possible pneumonia. pending cardiac clearance for surgery on 06/[address] Thomas. HD tomorrow as per HD schedule. #ESRD on HD (T//Sun) Patient has ESRD as stated. Follows with research and development researcher Dr. Chadwick at [facility]. Patient has significant anasarca, BUE edema and LLE 1+ edema with RLE trace edema. Albumin 2.8. On 06/15 Cr 2.3 from 2.1, BUN 15 from 13 Plan: - HD tomorrow - Albumin x 1 given - Renally dose medications - strict i and o #Normocytic normochromic anemia - likely 2/2 ESRD - possible epogen with HD. #Left hip intertrochanteric fracture #Right hip greater trochanter fracture - plan for Surgery with Dr. Thomas 06/17 #First coccygeal segment fracture #Right first sacral wing fracture #T2DM on insulin PRN- well controlled. Patient history as stated. Patient takes insulin as needed for significantly elevated blood sugar, which he reports is rare. A1c 5.7% as of 12/09/24. UA 3+ glucose, 1+ protein -managment as per primary team #Sepsis 2/2 CAP with end organ damage given transaminitis #Bibasilar CAP- on vanc and zosyn - renally dose vanc #Acute liver injury #CRISTIANO #electrolyte abnormalities- replete as indicated #tachycardia to 120s - query 2/2 pain or dehydration, or CAP infection. - pending cards consult for cardiac clearance prior to surgery #query HTN - Managment as per primary team. Plan discussed with nephrology attending Dr. Edwin Gonsalves MD Internal Medicine PGY-1 Attending Provider Attestation/Addendum Patient seen and examined with resident physician Dr. Gonsalves. Note reviewed, agree with findings and recommendations. Status post ground-level fall with a left hip fracture. Possible surgery tomorrow with Dr. Thomas. Will plan for dialysis early a.m. Patient is a TTS HD schedule. Lost significant amount of weight. I know him from my CKD clinic in the past. Thank you Dr. Davis for allowing me to participate in the care of Chin Gonzalez
[2025-06-15] MEDS: VANCOMYCIN/WATER 1GM IVPB 200 ML IV (10:06)
[2025-06-15] MEDS: Magnesium Sulfate 2 GM Ivpb 2 GM/50 ML BAG IV (10:06)
--- NOTE | 2025-06-15 11:08 | PD.ORTHCON ---
HPI Consult details Reason for consultation narrative: bilateral hip pain History of present illness: Patient is a 65-year-old male with end-stage renal disease and bilateral hip pain after ground-level fall. He was a baseline ambulator using a walker. He has multiple medical committees including sleep apnea, diabetes, and is end-stage renal disease on dialysis.. He reports that both legs hurt. Meds Home Medications and Allergies Home Medications ?Medication ?Instructions ?Recorded ?Confirmed ?Type cholecalciferol (vitamin D3) 50 2,000 unit PO QDAY #0 caps 12/19/15 03/20/25 History mcg (2,000 unit) capsule (Vitamin D3) vitamin B complex 1 tab PO QDAY 04/01/19 03/20/25 History nortriptyline 25 mg capsule 25 mg PO HS 11/12/20 03/20/25 History hydroxyzine HCl 10 mg tablet 10 mg PO QPM 03/07/24 03/20/25 History insulin aspart U-100 100 unit/mL 5 unit subcut TID 03/07/24 03/20/25 History (3 mL) subcutaneous pen (Novolog FlexPen U-100 Insulin aspart) midodrine 10 mg tablet 10 mg PO TID 03/07/24 03/20/25 History sevelamer carbonate 800 mg tablet 800 mg PO .with meals 12/09/24 03/20/25 History Allergies Allergy/AdvReac Type Severity Reaction Status Date / Time house dust Allergy Verified 06/14/25 18:06 Exam Vital Signs Temp Pulse Resp BP Pulse Ox O2 Del Method 97.4 F 124 H 18 152/99 H 94 L Room Air 06/15/25 08:00 06/15/25 08:00 06/15/25 08:00 06/15/25 08:00 06/15/25 08:00 06/15/25 08:00 Additional findings Additional findings: Patient is in no acute distress and is cooperative with the examination today. Patient has a normal mood and affect. Breathing is nonlabored. In no respiratory distress. Bilateral extremities were evaluated and demonstrates sensation intact to light touch. Palpable pedal pulses are present. No significant edema is present. Right hip is tender to palpation laterally. The knee is nontender. There is pain with logroll Left hip is exquisitely tender to palpation. He has pain with logroll. Range of motion was not performed secondary to pain X-rays of the left hip demonstrate an intertrochanteric fracture. On the right hip there is a greater trochanteric fracture which is also visualized on the CT. It does not appear to extend into the intertrochanteric region for the right hip Results - Ortho Labs 06/15/25 07:20 06/15/25 07:20 Labs: Short CBC 06/14/25 06/15/25 Range/Units 21:09 07:20 WBC 14.8 H 14.4 H (3.8-10.6) Thou/mm3 Hgb 12.5 L 9.8 L D (13.5-16.0) g/dL Hct 37.3 L 29.4 L (41.0-53.0) % Plt Count 90 L D 152 D (140-440) Thou/mm3 BMP 06/14/25 06/15/25 21:09 07:20 Sodium 139 139 Potassium 4.0 3.8 Chloride 102 103 Carbon Dioxide 26.5 27.9 BUN 13 15 Creatinine 2.1 H 2.3 H Glucose 159 H 142 H Calcium 9.2 8.3 Liver Function 06/14/25 06/15/25 Range/Units 21:09 07:20 Total Bilirubin 0.5 0.6 (0.3-1.2) mg/dL AST 41 H 19 (0-34) U/L ALT 55 H 31 (10-49) U/L Alkaline Phosphatase 451 H 326 H D (46-116) U/L Albumin 2.8 L 2.2 L D (3.4-4.8) gm/dL Urine 06/14/25 Range/Units 22:22 Urine Color Lt-Yellow (Lt Yel-Yel) Urine Clarity Clear (Clear/Hazy) Urine pH 8.5 H (5.0-7.0) Ur Specific [place] 1.013 (1.001-1.035) Urine Protein 1+ A (Neg - Trace) Urine Glucose (UA) 3+ A (Negative) Assessment & Plan Problem List (1) Closed left hip fracture: Status: Acute Assessment and plan: Patient is a 65-year-old male with multiple medical issues including end-stage renal disease on dialysis as well as diabetes who presents with a ground-level fall. He was found to have a displaced intertrochanteric fracture on the left and a greater trochanteric fracture on the right. We will order an MRI to see if the fracture on the right extends to the intertrochanteric region. We discussed different options with the patient including bedrest and nonoperative treatment as well as operative treatment. We discussed the risk of surgery including infection, wound healing issues, painful hardware, and screw cut out. The patient would like to proceed with surgery. He understands that he is at high risk for medical comorbidities and medical issues because of his comorbidities. He understands and would like to proceed. He would need to get cleared from a medical and cardiac perspective and will need to get dialysis before proceeding. The patient was also originally admitted for sepsis as he was found to have a UTI. We will give him antibiotics and wait for this to clear before proceeding. I anticipate this would happen on Sunday - N.p.o. Sunday night for surgery on Sunday. We will plan for cephalomedullary nail on the left. We will need to get an MRI to figure out if this extends. (2) Greater trochanter fracture: Status: Acute
--- NOTE | 2025-06-15 11:28 | PC.SS ---
Patient Dmitry Gonzalez is a 65-year-old male admitted for Hip Fracture S/P Fall. SS conducted bedside contact with the patient to complete initial assessment and to discuss discharge planning.? Patient confirmed demographic information. Patient identifies his sister Maisha Mendoza [phone] as his surrogate decision maker. Patient resides at [facility]. Patient does need minimal assistance completing his ADL's. Patient utilizes a FWW to assist with ambulation prior to admission. Patient will return back to [facility] when medically cleared. Discharge plan :[facility] Next of kin Maisha Mendoza
[2025-06-15] MEDS: MORPHINE SULF INJ 10 MG/ML VIAL 2 MG IVP (18:43)
--- NOTE | 2025-06-15 20:44 | ESCONSULT_ITS ---
<Statement entered by Martin Harrington MD - 06/21/25 18:04> The patient is evaluated by me personally examined the patient with resident physician 65-year-old man history of ESRD end-stage renal hemodialysis run has a fracture of the hip requesting cardiac labs patient is clinically stable not having shortness of chest pain did have an echo on previous admission with normal ejection fraction based on today's clinical examination and based on recent echo findings given cardiac clearance for surgery appears below cardiac vascular surgery. I reviewed the note and consultation report of resident physician Dr. Tonny Richards, PGY1 agree with the treatment plan recommendation as documented and will monitor the patient closely. HPI Data of Consult Requesting Physician: Mikayla Davis DO Admitting Provider: Dmitry Alexis MD Attending Provider: Mikayla Davis DO Primary Care Provider: Physician No Primary/Family Consult Narrative History of present illness: 65-year-old male with a past medical history of ESRD on hemodialysis, diabetes and hypertension brought in by ambulance from [facility] after a fall. He fell forward and landed on his left hip. Also impacted his posterior parietal area. There was no loss of consciousness, he had no headache, nausea, or visual disturbances at time of presentation. Hip x-ray showed an acute left intertrochanteric fracture without significant displacement. Cardiology was consulted for surgical clearance. ED COURSE: Labs significant for: WBC 14.8, Pro-Guero negative, urinalysis negative, lactic acid negative, albumin 2.8. AST 41, ALT 55, ALP 451. Imaging: Head CT negative. EKG unremarkable. Hip/fever/pelvis x-ray showing left intertrochanteric hip fracture. CT A/P prelim report shows generalized anasarca, bilateral pleural effusions, left hip fracture. Chest x-ray shows vascular congestion, possible superimposed pneumonia. Femoral cath line was placed due to inability to achieve IV access. In the ED, patient received 500 mL normal saline, morphine, 1 g Tylenol, Zosyn and Vanco in the ED. Sepsis alert was called due to fever, tachycardia. Unclear source of infection. History: Past medical history: ESRD on dialysis, diabetes, CRISTIANO, BPH Surgical history: Kidney removal, gastric bypass, too many surgeries to remember per the patient. Social history: Denies alcohol tobacco or illicit drug use. Medications: Midodrine 10 mg 3 times daily Nortriptyline 25 mg nightly Protonix 40 mg daily Sucralfate 10 ml daily cc:: cc: Mikayla Davis DO Review of Systems Review of Systems Narrative Review of Systems: Review of Systems: -General: Denies fevers, chills. - HEENT: Denies headache, congestion, or sore throat. -Cardiac: Denies chest pain or palpitations. -Pulmonary: Denies shortness of breath or cough. -GI: Denies nausea, vomiting, diarrhea, constipation, melena, or hematochezia. -: Denies dysuria, hematuria, frequency, or urgency. -MSK: Denies pain in the extremities, joints, or myalgias. -Neuro: Denies weakness, numbness, vision changes, or speech difficulty. Exam Vital Signs Temp Pulse Resp BP Pulse Ox O2 Del Method 97.8 F 123 H 18 126/80 92 L Room Air 06/15/25 16:00 06/15/25 16:00 06/15/25 11:49 06/15/25 16:00 06/15/25 16:00 06/15/25 16:00 Narrative Exam General: Awake and in no acute distress. Neurologic: GCS 15. Alert and oriented x3, no gross neurological deficit. HEENT: Normocephalic, atraumatic, mucous membranes moist. Pupils reactive to light. Heart: Sinus tachycardia, HR in the 120s. No murmurs. Lungs: Clear to auscultation bilaterally with no wheezing or crackles. Abdomen: Soft, nondistended, nontender, positive bowel sounds. No guarding or rebound tenderness. Extremities: Weeping wounds bilateral upper extremities. Multiple bruises in the bilateral upper extremities right femoral central line. Left leg shortened with external rotation. 2+ radial and dorsalis pedis pulses bilaterally. Diffuse edema in the lower extremities bilaterally. Skin: Warm. See above. Results Labs 06/16/25 05:57 06/16/25 05:57 Labs: Short CBC 06/14/25 06/15/25 Range/Units 21:09 07:20 WBC 14.8 H 14.4 H (3.8-10.6) Thou/mm3 Hgb 12.5 L 9.8 L D (13.5-16.0) g/dL Hct 37.3 L 29.4 L (41.0-53.0) % Plt Count 90 L D 152 D (140-440) Thou/mm3 BMP 06/14/25 06/15/25 21:09 07:20 Sodium 139 139 Potassium 4.0 3.8 Chloride 102 103 Carbon Dioxide 26.5 27.9 BUN 13 15 Creatinine 2.1 H 2.3 H Glucose 159 H 142 H Calcium 9.2 8.3 Liver Function 06/14/25 06/15/25 Range/Units 21:09 07:20 Total Bilirubin 0.5 0.6 (0.3-1.2) mg/dL AST 41 H 19 (0-34) U/L ALT 55 H 31 (10-49) U/L Alkaline Phosphatase 451 H 326 H D (46-116) U/L Albumin 2.8 L 2.2 L D (3.4-4.8) gm/dL Urine 06/14/25 Range/Units 22:22 Urine Color Lt-Yellow (Lt Yel-Yel) Urine Clarity Clear (Clear/Hazy) Urine pH 8.5 H (5.0-7.0) Ur Specific [place] 1.013 (1.001-1.035) Urine Protein 1+ A (Neg - Trace) Urine Glucose (UA) 3+ A (Negative) Quality Measures Quality Measures sepsis Current suspected stage: sepsis Possible source: unknown Blood cultures ordered: yes Antibiotic ordered: Yes Medications Home Medications and Allergies Home Medications ?Medication ?Instructions ?Recorded ?Confirmed ?Type cholecalciferol (vitamin D3) 50 2,000 unit PO QDAY #0 caps 12/19/15 06/15/25 History mcg (2,000 unit) capsule (Vitamin D3) vitamin B complex 1 tab PO QDAY 04/01/1906/15 History nortriptyline 25 mg capsule 25 mg PO HS 11/12/2006/15 History hydroxyzine HCl 10 mg tablet 10 mg PO QPM PRN itching 03/07/24 06/15/25 History insulin aspart U-100 100 unit/mL 5 unit subcut AC 01/2606/15/25 History (3 mL) subcutaneous pen (Novolog FlexPen U-100 Insulin aspart) midodrine 10 mg tablet 10 mg PO TID 03/07/24 History sucralfate 100 mg/mL oral 10 ml PO Q6H 06/15/25 History suspension Allergies Allergy/AdvReac Type Severity Reaction Status Date / Time house dust Allergy Verified 06/14/25 18:06 Visit Medications Acetaminophen (Acetaminophen 325 Mg Tablet) 650 mg PO Q6H PRN PRN Reason: Fever >100.4 or pain 1-3 Stop: 07/15/25 01:45 Hydrocodone Bitart/Acetaminophen (Hydrocodone/Apap 5/325 Tablet) 1 tab PO Q4HR PRN PRN Reason: PAIN SCALE 4-6 (Moderate Stop: 06/20/25 01:45 Dextrose (Dextrose 50%-Water Inj 50 Ml Syringe) 25 ml IV Q15MIN PRN PRN Reason: BG 50-70 responsive npo pt Stop: 07/15/25 03:00 Dextrose (Dextrose 50%-Water Inj 50 Ml Syringe) 50 ml IV Q15MIN PRN PRN Reason: BG <50 OR BG <70 & pt unresponsive Stop: 07/15/25 03:00 Docusate Sodium (Docusate Sod 100 Mg Capsule) 100 mg PO QDAY PRN; Protocol PRN Reason: CONSTIPATION Stop: 07/15/25 01:45 Glucagon (Glucagon Inj 1 Mg Vial) 1 mg IM Q15MIN PRN PRN Reason: BG <70, and no IV access Heparin Sodium (Porcine) (Heparin Sod Inj 5000 Unit/Ml Vial) 5,000 unit SC Q12HR [facility] Stop: 06/29/25 08:59 Last Admin: 06/15/25 08:15 Dose: Not Given Piperacillin Sod/Tazobactam (Sod 4.5 gm/ Sodium Chloride) 100 mls @ 200 mls/hr IV Q12HR [facility] Stop: 06/22/25 20:59 Insulin Human Lispro (Insulin Lispro (Admelog) 1 Unit/0.01 Ml Unit) 0 unit SC Q6HR [facility]; Protocol Stop: 07/15/25 05:59 Last Admin: 06/15/25 18:12 Dose: Not Given Morphine Sulfate (Morphine Sulf Inj 10 Mg/Ml Vial) 2 mg IVP Q2H PRN PRN Reason: PAIN SCALE 7-10 (Severe Stop: 06/20/25 01:45 Last Admin: 06/15/25 18:43 Dose: 2 mg Ondansetron HCl (Ondansetron Inj 2 Mg/Ml Inj 2 Ml) 4 mg IVP Q6H PRN; Protocol PRN Reason: NAUSEA OR VOMITING Stop: 07/15/25 01:45 Pharmacy Consult (Vancomycin Pharmacy To Dose 1 Each Each) 1 each IV QDAY PRN PRN Reason: PROTOCOL Stop: 07/15/25 08:59 Sennosides (Senna Tablet) 1 tab PO QDAY PRN; Protocol PRN Reason: constipation Stop: 07/15/25 01:45 Discontinued Medications Acetaminophen (Acetaminophen 325 Mg Tablet) 1,000 mg PO X1 ONE Stop: 06/14/25 21:07 Last Admin: 06/14/25 22:20 Dose: Not Given Acetaminophen (Acetaminophen 500 Mg Tablet) 1,000 mg PO X1 ONE Stop: 06/14/25 22:19 Last Admin: 06/14/25 22:27 Dose: 1,000 mg Acetaminophen (Acetaminophen 325 Mg Tablet) 650 mg PO Q6H PRN PRN Reason: Fever >100.4 or pain Stop: 07/15/25 01:45 Last Admin: 06/15/25 03:43 Dose: 650 mg Hydrocodone Bitart/Acetaminophen (Hydrocodone/Apap 5/325 Tablet) 1 tab PO Q4HR PRN PRN Reason: PAIN SCALE 4-10(Mod-Sev Stop: 06/20/25 01:45 Fentanyl Citrate (Fentanyl Cit Inj 50 Mcg/Ml Amp 2ml) 50 mcg IVP X1 ONE Stop: 06/14/25 18:35 Last Admin: 06/14/25 19:12 Dose: 50 mcg Sodium Chloride (Ns) 50 mls @ 250 mls/hr IV X1 ONE Stop: 06/14/25 20:36 Last Admin: 06/14/25 20:40 Dose: Not Given Sodium Chloride (Ns) 250 mls @ 250 mls/hr IV X1 ONE Stop: 06/14/25 21:24 Last Infusion: 06/14/25 23:04 Dose: Infused Piperacillin/Tazobactam/Dextrose (Zosyn) 3.375 gm in 50 mls @ 100 mls/hr IV X1 ONE Stop: 06/14/25 21:36 Last Infusion: 06/14/25 23:04 Dose: Infused Vancomycin HCl 1,000 mg/ (Sodium Chloride) 250 mls @ 150 mls/hr IV X1 ONE Stop: 06/14/25 22:45 Last Infusion: 06/15/25 00:51 Dose: Infused Piperacillin/Tazobactam/Dextrose (Zosyn) 3.375 gm in 50 mls @ 100 mls/hr IV Q8HR [facility] Stop: 06/22/25 05:59 Last Admin: 06/15/25 06:28 Dose: 100 mls/hr Albumin Human (Albuminar-25 Ivpb) 12.5 gm in 50 mls @ 50 mls/hr IV X1 ONE Stop: 06/15/25 02:58 Last Infusion: 06/15/25 03:34 Dose: Infused Vancomycin HCl (Vancomycin/Water 1gm Ivpb) 200 mls @ 120 mls/hr IV X1 ONE Stop: 06/15/25 11:39 Last Admin: 06/15/25 10:06 Dose: 120 mls/hr Magnesium Sulfate (Magnesium Sulfate Ivpb) 2 gm in 50 mls @ 25 mls/hr IV X1 ONE Stop: 06/15/25 10:28 Last Admin: 06/15/25 10:06 Dose: 25 mls/hr Piperacillin Sod/Tazobactam (Sod 4.5 gm/ Sodium Chloride) 100 mls @ 200 mls/hr IV Q12HR [facility] Stop: 06/22/25 10:08 Last Admin: 06/15/25 10:24 Dose: Not Given Morphine Sulfate (Morphine Sulf Inj 10 Mg/Ml Vial) 4 mg IVP X1 ONE Stop: 06/14/25 19:52 Last Admin: 06/14/25 20:15 Dose: 4 mg Ondansetron HCl (Ondansetron Inj 2 Mg/Ml Inj 2 Ml) 4 mg IVP X1 ONE; Protocol Stop: 06/14/25 18:35 Last Admin: 06/14/25 19:12 Dose: 4 mg Assessment & Plan Plan 65-year-old man with a past medical history of end-stage renal disease on dialysis, diabetes, CRISTIANO, BPH, presented to the ED from [facility] by ambulance after a fall resulting in a left intertrochanteric hip fracture. Cardiology was consulted for surgical clearance. #Chronic sinus tachycardia -Patient's heart rate is in the 120s -Patient denies history of cardiac problems, being prescribed any medications for hypertension or tachycardia, and denies shortness of breath on exertion Plan: - The patient is cleared for surgery from a cardiac standpoint - Will start atenolol 25 mg twice daily #Left hip intertrochanteric fracture #Sepsis #Community-acquired pneumonia #ESRD on dialysis #Anasarca #Acute liver injury #Diabetes #CRISTIANO The rest of the patient's problems will be managed per the patient's primary team. Patient was seen and discussed with my attending physician Dr. Harrington. Tonny Richards DO PGY-1.
[2025-06-15] MEDS: PIPER/TAZO INJ 4.5 GM in SODIUM CHLORIDE 0.9% (POP) 100 ML IV (20:49)
[2025-06-15] MEDS: HYDROcodone/APAP 5/325 TABLET 1 TAB PO (20:50)
[2025-06-15] MEDS: HEPARIN SOD INJ 5000 UNIT/ML VIAL SC (20:54)
[2025-06-15 21:43] LABS: Influenza A Ag Negative; Influenza B Ag Negative
[2025-06-16] VITALS (25 sets, daily range): BP systolic 119–158; BP diastolic 65–90; PULSE 82–137; RESP 13–18; TEMP 36.4–37.1; O2SAT 90–95
--- NOTE | 2025-06-16 | XR_ITS ---
Examination: MRI right hip without intravenous contrast. Date and time of exam: June 16, 2020 0526 hours INDICATIONS: Patient fell August 14, 2025 Technique: Multiple MRI images of the left hip have been obtained T1 weighted coronal sections, TR 500, TE 12 Proton density coronal fat saturated images, TR 3000, TE 71 T2-weighted coronal images, 5850, TE 104 T1-weighted axial images, TR 521, TE 12 T2-weighted axial fat suppressed images, TR 5730, TE 103. Findings: Acute intertrochanteric fracture left hip, without significant displacement Marrow edema and sagittal linear signal also in the right hip on the T2-weighted images Bones the pelvis intact No pelvic hematoma Urinary bladder intact IMPRESSION: Acute intertrochanteric fracture left hip without significant displacement Recommend CT scan pelvis bilateral hips to also confirm nondisplaced intertrochanteric fracture right hip
--- NOTE | 2025-06-16 | XR_ITS ---
Examination: MRI left hip without intravenous contrast. Date and time of exam: June 16, 2025 1146 hours INDICATIONS: Patient fell last week with injury to the hip, right hip pain Technique: Multiple MRI images of the left hip have been obtained T1 weighted coronal sections, TR 500, TE 12 Proton density coronal fat saturated images, TR 3000, TE 71 T2-weighted coronal images, 5850, TE 104 T1-weighted axial images, TR 521, TE 12 T2-weighted axial fat suppressed images, TR 5730, TE 103. Findings: Acute intertrochanteric fracture left hip without significant displacement No hip dislocation Bones of the pelvis intact Please see the MRI right hip report in addition IMPRESSION: Acute intertrochanteric fracture left hip without significant displacement
[2025-06-16 06:46] LABS: Alanine Aminotransferase 33 U/L (10-49); Albumin, Serum 2.0 gm/dL (3.4-4.8); Albumin/Globulin Ratio 0.8 (1.2-2.2); Alkaline Phosphatase 360 U/L (46-116); Anion Gap 10 (7-16); Aspartate Amino Transferase 27 U/L (0-34); BUN/Creatinine Ratio 6 Ratio (12-20); Bilirubin,Total 0.5 mg/dL (0.3-1.2); Blood Urea Nitrogen 16 mg/dL (9-23); Calcium 8.3 mg/dL (8.3-10.6); Calcium (Corrected) 9.9 mg/dL (8.5-10.1); Carbon Dioxide 26.5 mMol/L (20.0-31.0); Chloride 102 mMol/L (98-107); Creatinine (Component) 2.6 mg/dL (0.6-1.3); Estimated Creatinine Clearance 30.6 mL/min (>60); Globulin 2.5 gm/dL (2.3-3.5); Glucose 128 mg/dL (74-106); Magnesium 1.6 mg/dL (1.6-2.6); Osmolality,Calculated 278 (275-295); Phosphorous 3.5 mg/dL (2.4-5.1); Potassium 4.1 mMol/L (3.4-5.1); Sodium 138 mMol/L (136-145); Total Protein 4.5 gm/dL (5.7-8.2); Vancomycin,Random 16.0 mcg/mL; eGFR 27 See Note
[2025-06-16 06:47] LABS: Basophils # (Auto) 0.1 Thou/mm3 (0.0-0.2); Basophils % (Auto) 1 % (0-2.5); Eosinophils # (Auto) 0.4 Thou/mm3 (0.0-0.5); Eosinophils % (Auto) 3 % (0-10); Hematocrit 30.1 % (41.0-53.0); Hemoglobin 10.1 g/dL (13.5-16.0); INR 1.1 (0.9-1.3); Immature Granulocytes Auto 0.04 Thou/mm3 (0.00-0.00); Lymphocytes # (Auto) 1.4 Thou/mm3 (1.0-4.8); Lymphocytes % (Auto) 13 % (10-50); Mean Corpuscular HGB Conc 33.6 g/dl (31.0-37.0); Mean Corpuscular Hemoglobin 32.8 pg (25.0-35.0); Mean Corpuscular Volume 98 fL (80-100); Monocytes # (Auto) 1.1 Thou/mm3 (0.0-0.8); Monocytes % (Auto) 10 % (0-12); Neutrophils # (Auto) 8.2 Thou/mm3 (1.8-7.7); Neutrophils % (Auto) 73 % (37-80); Nucleated Red Blood Cell # 0.00 Thou/mm3 (0.00-0.00); Nucleated Red Blood Cell % 0 /100 WBC (0); Partial Thromboplastin Time 27.9 Seconds (22.0-36.0); Platelet Count 166 Thou/mm3 (140-440); Prothrombin Time 12.4 Seconds (9.0-12.2); RDW Standard Deviation 52.3 fL (35.1-43.9); Red Blood Count 3.08 Miln/mm3 (4.50-5.90); White Blood Count 11.2 Thou/mm3 (3.8-10.6)
--- NOTE | 2025-06-16 08:08 | ESPR_ITS ---
<Statement entered by Alex Corley MD - 06/16/25 20:28> Patient was examined and case was reviewed with team including attending physician. Note reviewed, I agree with most of its contents and agree with the patient's care as documented by Dr. Araujo Patient seen today at the bedside found awake, alert, orientedx3. No overnight events reported. Vitals and labs reviewed. Pain adequately controlled at this time. Patient is cleared for surgery from a cardiology standpoint. Patient had dialysis today in preparation for surgery. MRI shows acute intra trochanteric fracture of the left hip without significant displacement. Hip CT was ordered for follow-up results.Patient is pending orthopedic surgery tomorrow n.p.o. after midnight placed. Case discussed with my attending Dr. Susan Corley MD PGY-2 Disclaimer: Despite multiple revisions, due to the dictation software being used, the document bellow may not be free of grammatical errors including phonetic/typographic errors. However, this does not deter from our commitment to providing health care in the patient's best interest in mind. Documentation for date of: 06/16/25 Subjective Subjective Interval history: 06/16/25: NAEO. Patient is afebrile with stable VSS. Unable to evaluate the patient in the morning as patient was completing his dialysis session. Evaluated and examined the patient in the afternoon. Patient reports great pain relief with the current pain management regimen. Tolerating diet well. Denies any abdominal pain or dysuria or hematuria. Exam Vital Signs Temp Pulse Resp BP Pulse Ox O2 Del Method 97.6 F 119 H 15 138/83 H 94 L Room Air 06/16/25 07:59 06/16/25 07:59 06/16/25 07:59 06/16/25 07:59 06/16/25 07:59 06/16/25 07:59 Narrative Exam General: No acute distress, well nourished. Laying comfortably in bed watching TV. Eye: EOMI, normal conjunctiva, no scleral icterus HENT: Normocephalic, atraumatic, normal hearing, moist oral mucosa Neck: Supple, non-tender, no JVD, no lymphadenopathy Lungs: Clear to auscultation bilaterally, non-labored respirations, symmetric chest rise, no use of accessory muscles Heart: Regular rate. Normal S1 and S2, no S3 or S4 appreciated. Normal rate and regular rhythm, no murmurs, rubs gallops, or edema. Peripheral pulses intact bilaterally, capillary refill brisk distally. Right chest dialysis catheter in place. Abdomen: Soft, non-tender, non-distended, normal bowel sounds. No guarding or rebound tenderness. No suprapubic tenderness to palpation noted. Musculoskeletal: Left leg and externally rotated position. Neurologic: Alert, awake and oriented x3. No focal neuro deficits. Psychiatric: Cooperative, appropriate mood and affect Objective Labs 06/17/25 05:59 06/17/25 05:59 Labs: Laboratory Results - last 24 hr 06/15/25 06/15/25 06/16/25 07:20 20:59 05:57 WBC 14.4 H 11.2 H RBC 3.02 L 3.08 L Hgb 9.8 L D 10.1 L Hct 29.4 L 30.1 L MCV 97 98 MCH 32.5 32.8 MCHC 33.3 33.6 RDW Std Deviation 53.1 H 52.3 H Plt Count 152 D 166 Neut % (Auto) 84 H 73 Lymph % (Auto) 7 L 13 [place] % (Auto) 7 10 Eos % (Auto) 0 3 Baso % (Auto) 1 1 Neut # (Auto) 12.1 H 8.2 H Lymph # (Auto) 1.1 1.4 [place] # (Auto) 1.0 H 1.1 H Eos # (Auto) 0.0 0.4 Baso # (Auto) 0.1 0.1 Immature Gran # (Auto) 0.10 H 0.04 H Absolute Nucleated RBC 0.00 0.00 Immature Gran % 1 H 0 Nucleated RBC % 0 0 PT 12.4 H INR 1.1 APTT 27.9 Sodium 139 138 Potassium 3.8 4.1 Chloride 103 102 Carbon Dioxide 27.9 26.5 Anion Gap 8 10 BUN 15 16 Creatinine 2.3 H 2.6 H Estim Creat Clear Calc 35.2 L 30.6 L eGFR 31 L 27 L BUN/Creatinine Ratio 7 L 6 L Glucose [address] Glu mg/dL 108 Hemoglobin A1c 5.4 Calculated Osmolality 280 278 Calcium 8.3 8.3 Corrected Calcium 9.7 9.9 Phosphorus 3.5 Magnesium 1.4 L 1.6 Total Bilirubin 0.6 0.5 AST 19 27 ALT 31 33 Alkaline Phosphatase 326 H D 360 H D Total Protein 4.7 L 4.5 L Albumin 2.2 L D 2.0 L Globulin 2.5 2.5 Albumin/Globulin Ratio 0.9 L 0.8 L Random Vancomycin 16.0 Influenza A (Rapid) Negative Influenza B (Rapid) Negative Quality Measures Quality Measures sepsis Current suspected stage: sepsis Possible source: unknown Blood cultures ordered: yes Antibiotic ordered: Yes Assessment & Plan Assessment Current Active Medications: Generic Name Dose Route Start Last Admin Trade Name Freq PRN Reason Stop Dose Admin Acetaminophen 650 mg 06/15/25 08:49 Acetaminophen 325 Mg Tablet PO 07/15/25 01:45 Q6H PRN Fever >100.4 or pain 1-3 Hydrocodone Bitart/Acetaminophen 1 tab 06/15/25 02:25 06/15/25 20:50 Hydrocodone/Apap 5/325 Tablet PO 06/20/25 01:45 1 tab Q4HR PRN Administration PAIN SCALE 4-6 (Moderate Atenolol 25 mg 06/16/25 09:00 Atenolol 25 Mg Tablet PO 07/16/25 08:59 BID ERIC Dextrose 25 ml 06/15/25 03:01 Dextrose 50%-Water Inj 50 Ml Syringe IV 07/15/25 03:00 Q15MIN PRN BG 50-70 responsive npo pt Dextrose 50 ml 06/15/25 03:01 Dextrose 50%-Water Inj 50 Ml Syringe IV 07/15/25 03:00 Q15MIN PRN BG <50 OR BG <70 & pt unresponsive Docusate Sodium 100 mg 06/15/25 01:46 Docusate Sod 100 Mg Capsule PO 07/15/25 01:45 QDAY PRN CONSTIPATION Protocol Glucagon 1 mg 06/15/25 03:01 Glucagon Inj 1 Mg Vial IM Q15MIN PRN BG <70, and no IV access Heparin Sodium (Porcine) 5,000 unit 06/15/25 09:00 06/15/25 20:54 Heparin Sod Inj 5000 Unit/Ml Vial SC 06/29/25 08:59 5,000 unit Q12HR ERIC Administration Piperacillin Sod/Tazobactam 100 mls @ 200 mls/hr 06/15/25 21:00 06/15/25 20:49 Sod 4.5 gm/ Sodium Chloride IV 06/22/25 20:59 200 mls/hr Q12HR ERIC Administration Vancomycin HCl 200 mls @ 120 mls/hr 06/16/25 10:00 Vancomycin/Water 1gm Ivpb IV 06/16/25 11:39 X1 ONE Insulin Human Lispro 0 unit 06/15/25 21:02 06/16/25 07:35 Insulin Lispro (Admelog) 1 Unit/0.01 Ml Unit SC 07/15/25 20:59 Not Given ACHS ERIC Protocol Morphine Sulfate 2 mg 06/15/25 01:46 06/15/25 18:43 Morphine Sulf Inj 10 Mg/Ml Vial IVP 06/20/25 01:45 2 mg Q2H PRN Administration PAIN SCALE 7-10 (Severe Ondansetron HCl 4 mg 06/15/25 01:46 Ondansetron Inj 2 Mg/Ml Inj 2 Ml IVP 07/15/25 01:45 Q6H PRN NAUSEA OR VOMITING Protocol Pharmacy Consult 1 each 06/15/25 09:00 Vancomycin Pharmacy To Dose 1 Each Each IV 07/15/25 08:59 QDAY PRN PROTOCOL Sennosides 1 tab 06/15/25 01:46 Senna Tablet PO 07/15/25 01:45 QDAY PRN constipation Protocol Plan 65M with PMHx significant for ESRD (on dialysis T//Sun) with Dr. Chadwick, diabetes, CRISTIANO, BPH, gastric bypass presents from SNF with left hip pain s/p ground-level fall admitted for left hip fracture and possible pneumonia. #Left hip intertrochanteric fracture #Right hip greater trochanter fracture #First coccygeal segment fracture #Right first sacral wing fracture Patient had a ground-level fall without loc. CT imaging confirmed left hip fracture. Head CT negative. Patient initially in pain, relieved with morphine. Dr. Thomas on board, will take patient for surgery tomorrow (06/17/25). MRI shows acute intertrochanteric fracture left hip without significant displacement Cleared by cardiology for surgery. Plan: - NPO at midnight. Surgery tomorrow with Dr. Thomas - Ordered CT of bilateral hips as recommended by radiology and Ortho Dr. Thomas - [place] 5 and morphine 2 as needed for pain #Sepsis #Bibasilar CAP Improved Leukocytosis from 14.8 on admission to 11.2. Patient is afebrile. Lactic acid, Pro-Guero, UA negative. Imaging shows vascular congestion, bibasilar PNA Given 250 mL normal saline due to ESRD and anasarca. Sofa score 2. Negative rapid flu Plan: - Continue Vancomycin pharmacy dosing (started 06/15) - Continue Zosyn 4.5 g IV q12h (started 06/15) (renally dosed) - Blood cultures pending #ESRD on HD (//Sun) #Anasarca Tolerated today's hemodialysis session well. Follows with [facility] Dr. Chadwick. Cr 2.3 (at baseline) Albumin 2.0 Plan: - Administered 1x Albumin - Renally dose medications - Strict i and o #Chronic sinus tachycardia Improved sinus tachycardia to 91. Cardiology was consulted. Plan: - The patient is cleared for surgery by Cardiology - Start atenolol 25 mg BID #Acute liver injury - resolved #Transaminitis - resolved #Elevated alk phos Elevated alk phos most likely 2/[address] showed cirrhosis, mild ascites, distended gallbladder. In regards to gallbladder, patient is asymptomatic and denies any symptoms with eating. Plan: - CTM with daily CMP - Avoid hepatotoxins #Diabetes Patient takes insulin as needed for significantly elevated blood sugar, which he reports is rare. UA 3+ glucose, 1+ protein A1C 5.4 Plan: - ISS #CRISTIANO Patient has history of obstructive sleep apnea. Plan: - BiPAP as needed at bedtime #Normocytic normochromic anemia Most likely secondary to ESRD Hgb improved from 10.8 from yesterday to 11.1. Plan: - CTM with daily CBC #Hypomagnesemia Repleted. Plan: - CTM -Replete as needed Dispo: b/l hip fx surgery, CAP management DVT prophylaxis: Heparin (Hold for surgery tomorrow) GI prophylaxis: None Bowel reg: Docusate, Senna Diet: Renal (NPO after midnight on 06/[address] Thomas) Pain mgmt: Tylenol, [place] 5/325 mg q4h, morphine 2 mg IV q2h Lines: Dialysis port, femoral central line Code status: DNR Plan discussed with Dr. Hanna and Dr. Susan Araujo DO PGY1 Attending Provider Attestation/Addendum Mikayla Chisholm DO, attest that I was physically present for the lerma portions of the service and evaluated the patient with the resident and I reviewed and discussed the case with the resident and agree with the resident's findings and plans of care as documented above Patient seen and evaluated this AM. Patient reports pain in his left hip when being repositioned, but is otherwise in no acute distress. Patient underwent HD this AM. No acute events overnight. He has been afebrile. Cleared for surgery tomorrow by cardiology and had been started on atenolol due to tachycardia. MRI of right hip inconclusive. Pending CT of b/l hip to assess extension of right hip fx pending.
--- NOTE | 2025-06-16 09:11 | PD.RESPRO ---
Documentation for date of: 06/16/25 Subjective Subjective Interval history: Mr. Gonzalez is a 65 y/o M with PMHx significant for ESRD (//Sun) with Dr. Chadwick at [facility], diabetes, CRISTIANO, BPH, gastric bypass presents from SNF with left hip pain s/p ground-level fall with witnessed head strike. Pt states that he was standing, and while bending down to lower his pants to use the restroom, he started to fall forward. His nurse was with him and tried to catch him but they both fell to the ground. no LOC. He landed on his Left side. Found to have ?bilateral hip fractures and L femur fracture on xray and CT, MRI machine is down. 06/15/2025 Nephorology consulted for ESRD on TTS HD. patient seen and examined at bedside. reports that he has been attending HD regularly at [facility]. He states that he has L hip and femur fracture with plan for surgery this sunday, 06/[address] Thomas. On exam, he has BUE edema in the forearms to elbow, with RUE contusions on forearm 2/2 needle sticks not his ground level fall. He has nl work of breathing, tachycardic on exam to 120s. He has catheter on R chest for HD. Cr. 2.3 from 2.1 BUN 15 from 13. He states that he is pending a fistula on the LUE. Plan for HD 06/16 prior to surgery on 06/17. 06/16/2025: Patient seen and examined in HD. (TTS) reports that he lost his L glove that he wears because his hands are offten cold. Pt states that his pain is well controlled and that he has no new concerns. Of note MRI machine is down, query whether pt has bilateral hip fractures. On exam pt has nl work of breathing, pt remains tachycardic to 130s, Cr 2.6 from 2.3, BUN 16 from 15. tolerating HD well. Plan for surgery tomorrow with Dr. Thomas for multiple fractures. Exam Vital Signs Temp Pulse Resp BP Pulse Ox O2 Del Method 98.7 F 123 H 15 146/77 H 92 L Room Air 06/16/25 08:03 06/16/25 09:00 06/16/25 08:03 06/16/25 09:00 06/16/25 08:03 06/16/25 07:59 Narrative Exam GENERAL: no acute distress, AAO x3, comfortably laying in HD bed HEENT: Head AT/ NC. Mucous membranes moist. PERRL. some small bruises on the face. CARDIOVASCULAR: tachycardic to 130s on monitor . Normal S1/S2, No m/r/g. LLE 1+ edema to mid hernandez, RLE with skin wrinkling, trace edema skin . BUE with edema to elbows, query lymphedema? R HD catheter RESPIRATORY: nl work of breathing . No wheezing, rhonchi, crackles, in upper lung melgar, GASTROINTESTINAL: Abdomen soft, non tender no palpable masses. Bowel sounds present, fem cath. MUSCULOSKELETAL:? No cyanosis, no visible joint swelling. pt wearing glove on RUE, reports having lost L glove, pulses intact in all 4 extrem. LLE flexed and abducted NEUROLOGICAL: CN II-XII grossly intact. No focal deficits. Sensation intact, symmetric. speech is slow. PSYCHIATRIC: Awake and alert, not agitated, affect is flat. SKIN: RUE contusions violacious, on dorsal forearm. Objective Labs 06/16/25 05:57 06/16/25 05:57 Labs: Laboratory Results - last 24 hr 06/15/25 06/16/25 20:59 05:57 WBC 11.2 H RBC 3.08 L Hgb 10.1 L Hct 30.1 L MCV 98 MCH 32.8 MCHC 33.6 RDW Std Deviation 52.3 H Plt Count 166 Neut % (Auto) 73 Lymph % (Auto) 13 [place] % (Auto) 10 Eos % (Auto) 3 Baso % (Auto) 1 Neut # (Auto) 8.2 H Lymph # (Auto) 1.4 [place] # (Auto) 1.1 H Eos # (Auto) 0.4 Baso # (Auto) 0.1 Immature Gran # (Auto) 0.04 H Absolute Nucleated RBC 0.00 Immature Gran % 0 Nucleated RBC % 0 PT 12.4 H INR 1.1 APTT 27.9 Sodium 138 Potassium 4.1 Chloride 102 Carbon Dioxide 26.5 Anion Gap 10 BUN 16 Creatinine 2.6 H Estim Creat Clear Calc 30.6 L eGFR 27 L BUN/Creatinine Ratio 6 L Glucose 128 H Calculated Osmolality 278 Calcium 8.3 Corrected Calcium 9.9 Phosphorus 3.5 Magnesium 1.6 Total Bilirubin 0.5 AST 27 ALT 33 Alkaline Phosphatase 360 H D Total Protein 4.5 L Albumin 2.0 L Globulin 2.5 Albumin/Globulin Ratio 0.8 L Random Vancomycin 16.0 Influenza A (Rapid) Negative Influenza B (Rapid) Negative Quality Measures Quality Measures sepsis Current suspected stage: ruled out Possible source: unknown Blood cultures ordered: yes Antibiotic ordered: Yes Assessment & Plan Assessment Current Active Medications: Generic Name Dose Route Start Last Admin Trade Name Freq PRN Reason Stop Dose Admin Acetaminophen 650 mg 06/15/25 08:49 Acetaminophen 325 Mg Tablet PO 07/15/25 01:45 Q6H PRN Fever >100.4 or pain 1-3 Hydrocodone Bitart/Acetaminophen 1 tab 06/15/25 02:25 06/15/25 20:50 Hydrocodone/Apap 5/325 Tablet PO 06/20/25 01:45 1 tab Q4HR PRN Administration PAIN SCALE 4-6 (Moderate Atenolol 25 mg 06/16/25 09:00 06/16/25 08:38 Atenolol 25 Mg Tablet PO 07/16/25 08:59 25 mg BID ERIC Administration Dextrose 25 ml 06/15/25 03:01 Dextrose 50%-Water Inj 50 Ml Syringe IV 07/15/25 03:00 Q15MIN PRN BG 50-70 responsive npo pt Dextrose 50 ml 06/15/25 03:01 Dextrose 50%-Water Inj 50 Ml Syringe IV 07/15/25 03:00 Q15MIN PRN BG <50 OR BG <70 & pt unresponsive Docusate Sodium 100 mg 06/15/25 01:46 Docusate Sod 100 Mg Capsule PO 07/15/25 01:45 QDAY PRN CONSTIPATION Protocol Glucagon 1 mg 06/15/25 03:01 Glucagon Inj 1 Mg Vial IM Q15MIN PRN BG <70, and no IV access Heparin Sodium (Porcine) 5,000 unit 06/15/25 09:00 06/15/25 20:54 Heparin Sod Inj 5000 Unit/Ml Vial SC 06/29/25 08:59 5,000 unit Q12HR ERIC Administration Heparin Sodium (Porcine) 3,500 unit 06/16/25 08:26 Heparin Sod Inj 1000 Unit/Ml Vial 10 Ml INDWELLCAT 06/30/25 08:25 X1 PRN DIALYSIS Piperacillin Sod/Tazobactam 100 mls @ 200 mls/hr 06/15/25 21:00 06/15/25 20:49 Sod 4.5 gm/ Sodium Chloride IV 06/22/25 20:59 200 mls/hr Q12HR ERIC Administration Vancomycin HCl 200 mls @ 120 mls/hr 06/16/25 10:00 Vancomycin/Water 1gm Ivpb IV 06/16/25 11:39 X1 ONE Albumin Human 25 gm in 100 mls @ 100 mls/min 06/16/25 08:26 Albuminar-25 Ivpb IV 06/19/25 08:25 PRN PRN dialysis. Insulin Human Lispro 0 unit 06/15/25 21:02 06/16/25 07:35 Insulin Lispro (Admelog) 1 Unit/0.01 Ml Unit SC 07/15/25 20:59 Not Given ACHS ERIC Protocol Morphine Sulfate 2 mg 06/15/25 01:46 06/15/25 18:43 Morphine Sulf Inj 10 Mg/Ml Vial IVP 06/20/25 01:45 2 mg Q2H PRN Administration PAIN SCALE 7-10 (Severe Ondansetron HCl 4 mg 06/15/25 01:46 Ondansetron Inj 2 Mg/Ml Inj 2 Ml IVP 07/15/25 01:45 Q6H PRN NAUSEA OR VOMITING Protocol Pharmacy Consult 1 each 06/15/25 09:00 Vancomycin Pharmacy To Dose 1 Each Each IV 07/15/25 08:59 QDAY PRN PROTOCOL Sennosides 1 tab 06/15/25 01:46 Senna Tablet PO 07/15/25 01:45 QDAY PRN constipation Protocol Plan 65 y/o M with PMHx significant for ESRD (/) with Dr. Chadwick at [facility], hx of R renal kidney removal, well controlled T2DM , CRISTIANO, BPH, gastric bypass presents from SNF with left hip pain s/p ground-level fall admitted for left hip fracture and possible pneumonia. cards cleared for surgery, pending surgery on 06/[address] Thomas. HD today as per HD schedule. #ESRD on HD (//Sun) Patient has ESRD as stated. Follows with [facility] Chadwick at [facility]. Patient has significant anasarca, BUE edema and LLE 1+ edema with RLE trace edema. Albumin 2.8. On 06/15 Cr 2.3 from 2.1, BUN 15 from 13 On 06/16 Cr 2.6 from 2.3, BUN 16 from 15 HD: 06/16 Plan: - HD today - Renally dose medications - strict i and o #Normocytic normochromic anemia - likely 2/2 ESRD #query R hip fracture? #Left hip intertrochanteric fracture #Right hip greater trochanter fracture #First coccygeal segment fracture #Right first sacral wing fracture MRI machine is down, unable to obtain, - fractures seen on xray and CT. - plan for Surgery with Dr. Thomas 06/17 #T2DM on insulin PRN- well controlled. Patient history as stated. Patient takes insulin as needed for significantly elevated blood sugar, which he reports is rare. A1c 5.7% as of 12/09/24. AM glucose 133 UA 3+ glucose, 1+ protein -managment as per primary team #Sepsis 2/2 CAP with end organ damage given transaminitis #Bibasilar CAP- on vanc and zosyn - renally dose vanc #Acute liver injury #CRISTIANO #electrolyte abnormalities- replete as indicated #sinus tachycardia to 130s - query 2/2 pain or dehydration, or CAP infection. - cards consult for cardiac clearance prior to surgery- CLEARED -started atenolol 25 BID #query HTN - Managment as per primary team. Plan discussed with nephrology attending Dr. Edwin Gonsalves MD Internal Medicine PGY-1 Attending Provider Attestation/Addendum Patient seen and examined with resident physician Dr. Gonsalves. Note reviewed, agree with findings and recommendations. Status post ground-level fall with a left hip fracture. Possible surgery tomorrow with Dr. Thomas. Lost significant amount of weight. I know him from my CKD clinic in the past. Patient currently seen on dialysis. Tolerating dialysis without any problems. Hemodialysis for 3 hours, 2K, ultrafiltration 2 L, Epogen 6000, no heparin ordered. Plan of care discussed with the dialysis nurse. Please see dialysis flowsheet for further details.
[2025-06-16] MEDS: HEPARIN SOD INJ 1000 UNIT/ML VIAL 10 ML 3500 UNIT INDWELLCAT (11:08)
[2025-06-16] MEDS: PIPER/TAZO INJ 4.5 GM in SODIUM CHLORIDE 0.9% (POP) 100 ML IV ×2 (11:37→20:35)
[2025-06-16] MEDS: HEPARIN SOD INJ 5000 UNIT/ML VIAL SC (11:37)
[2025-06-16] MEDS: VANCOMYCIN/WATER 1GM IVPB 200 ML IV (14:15)
[2025-06-16] MEDS: Magnesium Sulfate 2 GM Ivpb 2 GM/50 ML BAG IV (15:32)
[2025-06-16] MEDS: ALBUMIN HUMAN 25% IVPB 12.5 GM/50 ML BTL IV (15:36)
--- NOTE | 2025-06-16 15:47 | ESPR_ITS ---
<Statement entered by Martin Harrington MD - 06/21/25 18:05> I personally examined the patient and evaluated the patient for cardiac risk assessment appears to be clinically doing well no shortness of breath chest pain reported awaiting surgery based on today's examination patient still appears to be doing well and getting cardiac clearance for surgery scheduled for tomorrow Documentation for date of: 06/16/25 Subjective Subjective Interval history: No overnight events. Patient's heart rate is much improved after starting atenolol morning of 06/16/2025. Surgery is planned for tomorrow 06/17/2025. Will continue current regimen. Exam Vital Signs Temp Pulse Resp BP Pulse Ox O2 Del Method 97.6 F 91 14 139/67 H 95 Room Air 06/16/25 12:00 06/16/25 12:00 06/16/25 12:00 06/16/25 12:00 06/16/25 12:06/16/25 12:00 Narrative Exam General: Awake and in no acute distress. Neurologic: GCS 15. Alert and oriented x3, no gross neurological deficit. HEENT: Normocephalic, atraumatic, mucous membranes moist. Pupils reactive to light. Heart: Regular rate and rhythm. No murmurs. Lungs: Clear to auscultation bilaterally with no wheezing or crackles. Abdomen: Soft, nondistended, nontender, positive bowel sounds. No guarding or rebound tenderness. Extremities: Weeping wounds bilateral upper extremities. Multiple bruises in the bilateral upper extremities. Right femoral central line. Left leg shortened with external rotation. 2+ radial and dorsalis pedis pulses bilaterally. Diffuse edema in the lower extremities bilaterally. Skin: Warm. See above. Objective Labs 06/16/25 05:57 06/16/25 05:57 Labs: Laboratory Results - last 24 hr 06/15/25 06/16/25 20:59 05:57 WBC 11.2 H RBC 3.08 L Hgb 10.1 L Hct 30.1 L MCV 98 MCH 32.8 MCHC 33.6 RDW Std Deviation 52.3 H Plt Count 166 Neut % (Auto) 73 Lymph % (Auto) 13 [place] % (Auto) 10 Eos % (Auto) 3 Baso % (Auto) 1 Neut # (Auto) 8.2 H Lymph # (Auto) 1.4 [place] # (Auto) 1.1 H Eos # (Auto) 0.4 Baso # (Auto) 0.1 Immature Gran # (Auto) 0.04 H Absolute Nucleated RBC 0.00 Immature Gran % 0 Nucleated RBC % 0 PT 12.4 H INR 1.1 APTT 27.9 Sodium 138 Potassium 4.1 Chloride 102 Carbon Dioxide 26.5 Anion Gap 10 BUN 16 Creatinine 2.6 H Estim Creat Clear Calc 30.6 L eGFR 27 L BUN/Creatinine Ratio 6 L Glucose 128 H Calculated Osmolality 278 Calcium 8.3 Corrected Calcium 9.9 Phosphorus 3.5 Magnesium 1.6 Total Bilirubin 0.5 AST 27 ALT 33 Alkaline Phosphatase 360 H D Total Protein 4.5 L Albumin 2.0 L Globulin 2.5 Albumin/Globulin Ratio 0.8 L Random Vancomycin 16.0 Influenza A (Rapid) Negative Influenza B (Rapid) Negative Quality Measures Quality Measures sepsis Current suspected stage: sepsis Possible source: unknown Blood cultures ordered: yes Antibiotic ordered: Yes Assessment & Plan Assessment Current Active Medications: Generic Name Dose Route Start Last Admin Trade Name Freq PRN Reason Stop Dose Admin Acetaminophen 650 mg 06/15/25 08:49 Acetaminophen 325 Mg Tablet PO 07/15/25 01:45 Q6H PRN Fever >100.4 or pain 1-3 Hydrocodone Bitart/Acetaminophen 1 tab 06/15/25 02:25 06/15/25 20:50 Hydrocodone/Apap 5/325 Tablet PO 06/20/25 01:45 1 tab Q4HR PRN Administration PAIN SCALE 4-6 (Moderate Atenolol 25 mg 06/16/25 09:00 06/16/25 08:38 Atenolol 25 Mg Tablet PO 07/16/25 08:59 25 mg BID ERIC Administration Dextrose 25 ml 06/15/25 03:01 Dextrose 50%-Water Inj 50 Ml Syringe IV 07/15/25 03:00 Q15MIN PRN BG 50-70 responsive npo pt Dextrose 50 ml 06/15/25 03:01 Dextrose 50%-Water Inj 50 Ml Syringe IV 07/15/25 03:00 Q15MIN PRN BG <50 OR BG <70 & pt unresponsive Docusate Sodium 100 mg 06/15/25 01:46 Docusate Sod 100 Mg Capsule PO 07/15/25 01:45 QDAY PRN CONSTIPATION Protocol Glucagon 1 mg 06/15/25 03:01 Glucagon Inj 1 Mg Vial IM Q15MIN PRN BG <70, and no IV access Heparin Sodium (Porcine) 5,000 unit 06/15/25 09:00 06/16/25 11:37 Heparin Sod Inj 5000 Unit/Ml Vial SC 06/29/25 08:59 5,000 unit Q12HR ERIC Administration Heparin Sodium (Porcine) 3,500 unit 06/16/25 08:26 06/16/25 11:08 Heparin Sod Inj 1000 Unit/Ml Vial 10 Ml INDWELLCAT 06/30/25 08:25 3,500 unit X1 PRN Administration DIALYSIS Piperacillin Sod/Tazobactam 100 mls @ 200 mls/hr 06/15/25 21:00 06/16/25 11:37 Sod 4.5 gm/ Sodium Chloride IV 06/22/25 20:59 200 mls/hr Q12HR ERIC Administration Albumin Human 25 gm in 100 mls @ 100 mls/min 06/16/25 08:26 Albuminar-25 Ivpb IV 06/19/25 08:25 PRN PRN dialysis. Magnesium Sulfate 2 gm in 50 mls @ 25 mls/hr 06/16/25 14:57 06/16/25 15:32 Magnesium Sulfate Ivpb IV 06/16/25 16:56 25 mls/hr X1 ONE Administration Albumin Human 12.5 gm in 50 mls @ 50 mls/hr 06/16/25 15:03 06/16/25 15:36 Albuminar-25 Ivpb IV 06/16/25 16:02 50 mls/hr X1 ONE Administration Insulin Human Lispro 0 unit 06/15/25 21:02 06/16/25 12:06 Insulin Lispro (Admelog) 1 Unit/0.01 Ml Unit SC 07/15/25 20:59 Not Given ACHS [facility] Protocol Morphine Sulfate 2 mg 06/15/25 01:46 06/15/25 18:43 Morphine Sulf Inj 10 Mg/Ml Vial IVP 06/20/25 01:45 2 mg Q2H PRN Administration PAIN SCALE 7-10 (Severe Ondansetron HCl 4 mg 06/15/25 01:46 Ondansetron Inj 2 Mg/Ml Inj 2 Ml IVP 07/15/25 01:45 Q6H PRN NAUSEA OR VOMITING Protocol Pharmacy Consult 1 each 06/15/25 09:00 Vancomycin Pharmacy To Dose 1 Each Each IV 07/15/25 08:59 QDAY PRN PROTOCOL Sennosides 1 tab 06/15/25 01:46 Senna Tablet PO 07/15/25 01:45 QDAY PRN constipation Protocol Plan 65-year-old man with a past medical history of end-stage renal disease on dialysis, diabetes, CRISTIANO, BPH, presented to the ED from [facility] by ambulance after a fall resulting in a left intertrochanteric hip fracture. Cardiology was consulted for surgical clearance. #Chronic sinus tachycardia -Patient's heart rate is in the 90s, much improved -Blood pressure slightly hypertensive but stable, likely due to pain -Patient denies history of cardiac problems, being prescribed any medications for hypertension or tachycardia, and denies shortness of breath on exertion Plan: - The patient is cleared for surgery planned on 06/17/2025 from a cardiac standpoint - Continue atenolol 25 mg twice daily #Left hip intertrochanteric fracture #Sepsis #Community-acquired pneumonia #ESRD on dialysis #Anasarca #Acute liver injury #Diabetes #CRISTIANO The rest of the patient's problems will be managed per the patient's primary team. Patient was seen and discussed with my attending physician Dr. Harrington. Tonny Richards DO PGY-1.
[2025-06-16] MEDS: MORPHINE SULF INJ 10 MG/ML VIAL 2 MG IVP (16:58)
--- NOTE | 2025-06-16 18:29 | XR_ITS ---
Examination: CT pelvis without intravenous contrast. CT bilateral hips without intravenous contrast 2-D sagittal and coronal reconstructions. Date and time of exam:June 16, 2025, 1950 hours INDICATIONS: Patient fell 2 days ago with injury to both hips, bilateral hip pain CTDI: vol (mGy) :9.31. DLP: (mGycm) : 326. Technique: Multiple 3 mm axial sections of the pelvis have been obtained with the 64 slice high resolution scanner. 2-D sagittal and coronal reconstructions. Low dose protocols were performed. One or more of the following dose reduction techniques were used; automated exposure control, adjustment of the mA and/or KV according to patient size, use of iterative reconstruction technique. Findings: Prominent osteopenia Acute comminuted intertrochanteric fracture left hip without major displacement Acute fracture greater trochanter right hip which does extend into the intertrochanteric region right hip Bones of the pelvis including anterior rami appear intact No pelvic hematoma IMPRESSION: Acute comminuted intertrochanteric fracture left hip Acute fracture greater trochanter right hip which does extend into the intertrochanteric region right hip, without significant displacement
[2025-06-16 20:36] LABS: Hepatitis A Antibody IgM Non Reactive (Non React); Hepatitis B Core Antibody IgM Non Reactive (Non React); Hepatitis B Surface Ab NonReact(Not Immune) (Immune); Hepatitis B Surface Antigen Non Reactive (Non React); Hepatitis C Antibody Non Reactive (Non React)
[2025-06-17] VITALS (21 sets, daily range): BP systolic 77–140; BP diastolic 53–85; PULSE 71–85; RESP 11–20; TEMP 36–37.2; O2SAT 93–100
[2025-06-17 06:41] LABS: Basophils # (Auto) 0.1 Thou/mm3 (0.0-0.2); Basophils % (Auto) 1 % (0-2.5); Eosinophils # (Auto) 0.6 Thou/mm3 (0.0-0.5); Eosinophils % (Auto) 6 % (0-10); Hematocrit 30.3 % (41.0-53.0); Hemoglobin 10.2 g/dL (13.5-16.0); Immature Granulocytes Auto 0.03 Thou/mm3 (0.00-0.00); Lymphocytes # (Auto) 1.6 Thou/mm3 (1.0-4.8); Lymphocytes % (Auto) 15 % (10-50); Mean Corpuscular HGB Conc 33.7 g/dl (31.0-37.0); Mean Corpuscular Hemoglobin 32.6 pg (25.0-35.0); Mean Corpuscular Volume 97 fL (80-100); Monocytes # (Auto) 1.2 Thou/mm3 (0.0-0.8); Monocytes % (Auto) 12 % (0-12); Neutrophils # (Auto) 6.8 Thou/mm3 (1.8-7.7); Neutrophils % (Auto) 67 % (37-80); Nucleated Red Blood Cell # 0.00 Thou/mm3 (0.00-0.00); Nucleated Red Blood Cell % 0 /100 WBC (0); Platelet Count 182 Thou/mm3 (140-440); RDW Standard Deviation 51.3 fL (35.1-43.9); Red Blood Count 3.13 Miln/mm3 (4.50-5.90); White Blood Count 10.2 Thou/mm3 (3.8-10.6)
[2025-06-17 06:58] LABS: Alanine Aminotransferase 29 U/L (10-49); Albumin, Serum 2.1 gm/dL (3.4-4.8); Albumin/Globulin Ratio 0.9 (1.2-2.2); Alkaline Phosphatase 388 U/L (46-116); Anion Gap 8 (7-16); Aspartate Amino Transferase 28 U/L (0-34); BUN/Creatinine Ratio 6 Ratio (12-20); Bilirubin,Total 0.5 mg/dL (0.3-1.2); Blood Urea Nitrogen 14 mg/dL (9-23); Carbon Dioxide 27.4 mMol/L (20.0-31.0); Chloride 102 mMol/L (98-107); Creatinine (Component) 2.2 mg/dL (0.6-1.3); Estimated Creatinine Clearance 36.1 mL/min (>60); Globulin 2.4 gm/dL (2.3-3.5); Glucose 126 mg/dL (74-106); Magnesium 1.7 mg/dL (1.6-2.6); Osmolality,Calculated 276 (275-295); Phosphorous 3.1 mg/dL (2.4-5.1); Potassium 3.7 mMol/L (3.4-5.1); Sodium 137 mMol/L (136-145); Total Protein 4.5 gm/dL (5.7-8.2); Vancomycin,Random 18.0 mcg/mL; eGFR 33 See Note
[2025-06-17 07:08] LABS: Calcium 8.5 mg/dL (8.3-10.6); Calcium (Corrected) 10.0 mg/dL (8.5-10.1)
--- NOTE | 2025-06-17 07:52 | CONPN_ITS ---
Subjective Subjective Brief History: Patient is a 65-year-old male with end-stage renal disease and bilateral hip pain after ground-level fall. He was a baseline ambulator using a walker. He has multiple medical committees including sleep apnea, diabetes, and is end- stage renal disease on dialysis.. He reports that both legs hurt. Narrative: Patient had dialysis yesterday and is setup for surgery today. He had a MRI and CT yesterday which confirmed intertrochanteric extension of the right greater trochnater fracture Exam Vital Signs Temp Pulse Resp BP Pulse Ox O2 Del Method 98.3 F 71 13 128/73 93 L Room Air 06/17/25 04:00 06/17/25 04:00 06/17/25 04:00 06/17/25 04:00 06/17/25 04:00 06/17/25 04:00 Additional findings Additional findings: Patient is in no acute distress and is cooperative with the examination today. Patient has a normal mood and affect. Breathing is nonlabored. In no respiratory distress. Bilateral extremities were evaluated and demonstrates sensation intact to light touch. Palpable pedal pulses are present. No significant edema is present. Right hip is tender to palpation laterally. The knee is nontender. There is pain with logroll Left hip is exquisitely tender to palpation. He has pain with logroll. Range of motion was not performed secondary to pain X-rays of the left hip demonstrate an intertrochanteric fracture. On the right hip there is a greater trochanteric fracture which is also visualized on the CT. It does appear to extend into the intertrochanteric region for the right hip on both the MRI and CT which is confirmed by the radiology read Objective - Ortho Labs 06/17/25 05:59 06/17/25 05:59 Labs: Laboratory Results - last 24 hr 06/16/25 06/17/25 05:57 05:59 WBC 10.2 RBC 3.13 L Hgb 10.2 L Hct 30.3 L MCV 97 MCH 32.6 MCHC 33.7 RDW Std Deviation 51.3 H Plt Count 182 Neut % (Auto) 67 Lymph % (Auto) 15 [place] % (Auto) 12 Eos % (Auto) 6 Baso % (Auto) 1 Neut # (Auto) 6.8 Lymph # (Auto) 1.6 [place] # (Auto) 1.2 H Eos # (Auto) 0.6 H Baso # (Auto) 0.1 Immature Gran # (Auto) 0.03 H Absolute Nucleated RBC 0.00 Immature Gran % 0 Nucleated RBC % 0 Sodium 137 Potassium 3.7 Chloride 102 Carbon Dioxide 27.4 Anion Gap 8 BUN 14 Creatinine 2.2 H Estim Creat Clear Calc 36.1 L eGFR 33 L BUN/Creatinine Ratio 6 L Glucose 126 H Calculated Osmolality 276 Calcium 8.5 Corrected Calcium 10.0 Phosphorus 3.1 Magnesium 1.7 Total Bilirubin 0.5 AST 28 ALT 29 Alkaline Phosphatase 388 H D Total Protein 4.5 L Albumin 2.1 L Globulin 2.4 Albumin/Globulin Ratio 0.9 L Random Vancomycin 18.0 Hepatitis A IgM Ab Non Reactive Hep Bs Antigen Non Reactive Hep Bs Antibody NonReact(Not Immune) L Hep B Core IgM Ab Non Reactive Hepatitis C Antibody Non Reactive Assessment & Plan Diagnosis (1) Intertrochanteric fracture of both femurs: Status: Acute Assessment Additional comments: 65yo male with bilateral hip introchanteric fractures with the right side being confirmed on CT and MRI. I discussed that the right hip fracture did indeed extend with the patient today and the risk of it displacing. He understands and wants to proceed with bilateral hip nailing. - npo - plan for bilateral hip cephalomedullary nails today Documentation for date of: 06/17/25
--- NOTE | 2025-06-17 08:36 | CHAP ---
Visited with patient and had prayer for upcoming surgery.
--- NOTE | 2025-06-17 09:44 | PD.NEPHPROG ---
Documentation for date of: 06/19/25 Subjective Subjective Interval history: Mr. Gonzalez is a 65 y/o M with PMHx significant for ESRD (//Sun) with Dr. Chadwick at [facility], diabetes, CRISTIANO, BPH, gastric bypass presents from SNF with left hip pain s/p ground-level fall with witnessed head strike. Pt states that he was standing, and while bending down to lower his pants to use the restroom, he started to fall forward. His nurse was with him and tried to catch him but they both fell to the ground. no LOC. He landed on his Left side. Found to have ?bilateral hip fractures and L femur fracture on xray and CT, MRI machine is down. 06/15/2025 Nephorology consulted for ESRD on TTS HD. patient seen and examined at bedside. reports that he has been attending HD regularly at [facility]. He states that he has L hip and femur fracture with plan for surgery this sunday, 06/[address] Thomas. On exam, he has BUE edema in the forearms to elbow, with RUE contusions on forearm 2/2 needle sticks not his ground level fall. He has nl work of breathing, tachycardic on exam to 120s. He has catheter on R chest for HD. Cr. 2.3 from 2.1 BUN 15 from 13. He states that he is pending a fistula on the LUE. Plan for HD 06/16 prior to surgery on 06/17. 06/16/2025: Patient seen and examined in HD. (TTS) reports that he lost his L glove that he wears because his hands are offten cold. Pt states that his pain is well controlled and that he has no new concerns. Of note MRI machine is down, query whether pt has bilateral hip fractures. On exam pt has nl work of breathing, pt remains tachycardic to 130s, Cr 2.6 from 2.3, BUN 16 from 15. tolerating HD well. Plan for surgery tomorrow with Dr. Thomas for multiple fractures. 06/17/2025 patient currently seen medical floor. Comfortable. Going for bilateral hip fracture and fixation with Dr. Thomas today. Did receive dialysis yesterday. Review of Systems Review of Systems Narrative Review of Systems: Denies any chest pain, shortness of breath. Does have swelling in the upper extremities. Denies any nausea, vomiting Exam Vital Signs Temp Pulse Resp BP Pulse Ox O2 Del Method O2 Flow Rate 36.1 C 71 14 118/60 96 Room Air 2 06/19/25 16:00 06/19/25 18:22 06/19/25 18:22 06/19/25 16:00 06/19/25 16:00 06/19/25 16:00 06/17/25 16:00 Narrative Exam GENERAL: no acute distress, AAO x3, comfortably laying in bed HEENT: Head AT/ NC. Mucous membranes moist. PERRL. some small bruises on the face. CARDIOVASCULAR: tachycardic to 130s on monitor . Normal S1/S2, No m/r/g. LLE 1+ edema to mid hernandez, RLE with skin wrinkling, trace edema skin . BUE with edema to elbows. rt HD catheter RESPIRATORY: nl work of breathing . No wheezing, rhonchi, crackles, in upper lung melgar, GASTROINTESTINAL: Abdomen soft, non tender no palpable masses. Bowel sounds present, fem cath. MUSCULOSKELETAL:? No cyanosis, no visible joint swelling. pt wearing glove on RUE, reports having lost L glove, pulses intact in all 4 extrem. LLE flexed and abducted NEUROLOGICAL: CN II-XII grossly intact. No focal deficits. Sensation intact, symmetric. speech is slow. PSYCHIATRIC: Awake and alert, not agitated, affect is flat. SKIN: RUE contusions violacious, on dorsal forearm. Objective Labs 06/19/25 06:56 06/19/25 06:56 Labs: Laboratory Results - last 24 hr 06/19/25 06:56 WBC 10.3 RBC 3.42 L Hgb 10.4 L D Hct 31.2 L MCV 91 MCH 30.4 MCHC 33.3 RDW Std Deviation 59.1 H Plt Count 206 Neut % (Auto) 63 Lymph % (Auto) 26 [place] % (Auto) 9 Eos % (Auto) 2 Baso % (Auto) 0 Neut # (Auto) 6.5 Lymph # (Auto) 2.6 [place] # (Auto) 0.9 H Eos # (Auto) 0.2 Baso # (Auto) 0.0 Immature Gran # (Auto) 0.02 H Absolute Nucleated RBC 0.00 Immature Gran % 0 Nucleated RBC % 0 Sodium 136 Potassium 4.4 Chloride 100 Carbon Dioxide 26.7 Anion Gap 9 BUN 16 Creatinine 2.5 H Estim Creat Clear Calc 31.8 L eGFR 28 L BUN/Creatinine Ratio 6 L Glucose 158 H Calculated Osmolality 276 Calcium 8.6 Corrected Calcium 10.0 Phosphorus 3.7 Magnesium 2.2 Total Bilirubin 0.7 AST 68 H ALT 85 H Alkaline Phosphatase 454 H Total Protein 4.6 L Albumin 2.3 L Globulin 2.3 Albumin/Globulin Ratio 1.0 L Random Vancomycin 16.2 Assessment & Plan Assessment and plan (1) Intertrochanteric fracture of both femurs: Status: Acute Additional Assessment & Plan Additional Plan: 65 y/o M with PMHx significant for ESRD (//Sun) with Dr. Chadwick at [facility], hx of R renal kidney removal, well controlled T2DM , CRISTIANO, BPH, gastric bypass presents from SNF with left hip pain s/p ground-level fall admitted for left hip fracture and possible pneumonia. cards cleared for surgery, pending surgery on 06/[address] Thomas. HD today as per HD schedule. #ESRD on HD (//Sun) Patient has ESRD as stated. 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 Patient has significant anasarca, BUE edema and LLE 1+ edema with RLE trace edema. Albumin 2.8. On 06/15 Cr 2.3 from 2.1, BUN 15 from 13 On 06/16 Cr 2.6 from 2.3, BUN 16 from 15 HD: 06/18 Plan: - HD today - Renally dose medications - strict i and o #Normocytic normochromic anemia - likely 2/2 ESRD #query R hip fracture? #Left hip intertrochanteric fracture #Right hip greater trochanter fracture #First coccygeal segment fracture #Right first sacral wing fracture MRI machine is down, unable to obtain, - fractures seen on xray and CT. - plan for Surgery with Dr. Thomas 06/17 #T2DM on insulin PRN- well controlled. Patient history as stated. Patient takes insulin as needed for significantly elevated blood sugar, which he reports is rare. A1c 5.7% as of 12/09/24. AM glucose 133 UA 3+ glucose, 1+ protein -managment as per primary team #Sepsis 2/2 CAP with end organ damage given transaminitis #Bibasilar CAP- on vanc and zosyn - renally dose vanc #Acute liver injury #CRISTIANO #electrolyte abnormalities- replete as indicated #sinus tachycardia to 130s - query 2/2 pain or dehydration, or CAP infection. - cards consult for cardiac clearance prior to surgery- CLEARED -started atenolol 25 BID #query HTN - Managment as per primary team. Plan discussed with primary team
[2025-06-17] MEDS: PIPER/TAZO INJ 4.5 GM in SODIUM CHLORIDE 0.9% (POP) 100 ML IV ×2 (09:47→20:27)
[2025-06-17] MEDS: VANCOMYCIN/NS 750 MG IVPB 750 MG/150 ML BAG 120 MG IV (10:58)
[2025-06-17] MEDS: MORPHINE SULF INJ 10 MG/ML VIAL 2 MG IVP (11:03)
--- NOTE | 2025-06-17 12:19 | PC.SS ---
SS follow up note; Patient is pending Surgery today, patient will discharge back to [facility] when medically cleared.
--- NOTE | 2025-06-17 12:30 | XR_ITS ---
Examination: Bilateral hips 11 views Fluoroscopy Date and time: June 23, 2025 1250 hours INDICATIONS: Operative reduction internal fixation bilateral hip fractures TECHNIQUE AND FINDINGS: Operative reduction internal fixation bilateral hip fractures Anatomic alignment Fluoroscopy 124 seconds 11 spot fluoroscopic hip films, radiation dose 13.96 milligray IMPRESSION: Operative reduction internal fixation bilateral hip fractures with anatomic alignment
--- NOTE | 2025-06-17 14:24 | PD.SUROPNT ---
Date of Procedure 06/17/25 Pre Op Diagnosis bilateral hip interotrochanteric fractures Post Op Diagnosis bilateral hip interotrochanteric fractures Procedure Bilateral hip cephalomedullary nails Findings bilateral interochanteric fractures Procedure Description Indications Patient is a pleasant 65 yo male with a ground level fall on dialysis with bilateral intertrochanteric fractures. We discussed operative treatment with a cephalomedullary nail given the intertrochanteric fractures. We Discussed nonoperative and operative options. He understands the risk of surgery, including infection, nonunion, malunion, hardware failure, and medical complications including , and would like to proceed with surgery. Procedure in detail The patient was brought to the [place] table and was prepped and draped in the usual sterile fashion. We first obtained prereduction fluoroscopy films. We reduced it with traction and gentle internal rotation. Once an adequate reduction was performed, the patient was prepped and draped in usual sterile fashion for the left hip. A surgical timeout was then performed. A trochanteric starting point was found and an entry wire was inserted followed by an opening reamer. We then inserted a 10 mm 130 degrees short gamma nail into the femur and ensured that it was reduced. We then inserted a wire into the 130 degree holding the jig and try to ensure that was center center on both the AP and lateral films. We then used a drill and inserted a helical blade. We ensured on both AP and lateral fluoroscopy views that we were in good position. We then used the static interlock screw. The patient was closed in the usual sterile fashion with Vicryl and Monocryl. We then prepared the room for the right side. We obtained prereduction fluoroscopy films. We reduced it with traction and gentle internal rotation. Once an adequate reduction was performed, the right side was prepped and draped in usual sterile fashion. A surgical timeout was then performed. A trochanteric starting point was found and an entry wire was inserted followed by an opening reamer. We then inserted a 10 mm 130 degrees short gamma nail into the femur and ensured that it was reduced. We then inserted a wire into the 130 degree holding the jig and try to ensure that was center center on both the AP and lateral films. We then used a drill and inserted a helical blade. We ensured on both AP and lateral fluoroscopy views that we were in good position. We then used the static interlock screw. The patient was closed in the usual sterile fashion with Vicryl and Monocryl. Patient is to be weightbearing as tolerated Plan: WBAT Resume dvt ppx PT/OT Implants bilateral gamma nails, 10mm short gamma x2, 90mm screw x2, 40 distal Pathology / specimen None Pathology comment: none Estimated Blood Loss 100 Condition Stable Disposition floor Surgeon Ruddy Thomas MD Surgical Staff Operation Date: 06/17/25 15:30 Case Staff Anesthesiologist: Ramses Saleem RN First Assistant: Jazmine Lemon
--- NOTE | 2025-06-17 14:31 | XR_ITS ---
Examination: AP pelvis single view Technique one AP portable supine pelvis single view Date and time: 2024 1455 hours INDICATIONS: Postop reduction internal fixation hip fractures FINDINGS: Postop reduction internal fixation bilateral hip fractures Anatomic alignment IMPRESSION: Postop reduction internal fixation bilateral hip fractures, anatomic alignment
--- NOTE | 2025-06-17 14:51 | ESPR_ITS ---
<Statement entered by Alex Corley MD - 06/17/25 18:07> Patient was examined and case was reviewed with team including attending physician. Note reviewed, I agree with most of its contents and agree with the patient's care as documented by Dr. Araujo Patient was seen and examined at the bedside. Reports pain in the bilateral hips however adequately controlled at this time. Femoral central line was to skin continued as requested by orthopedic surgery in order to proceed with bilateral hip surgery. Will evaluate the patient postoperatively. Case discussed with my attending Dr. Amarilis Corley MD PGY-2 Disclaimer: Despite multiple revisions, due to the dictation software being used, the document bellow may not be free of grammatical errors including phonetic/typographic errors. However, this does not deter from our commitment to providing health care in the patient's best interest in mind. Documentation for date of: 06/17/25 Subjective Subjective Interval history: 06/17/25: NAEO. VSS. Patient was examined at bedside. Report 5-6 pain in bilateral hips. Right femoral central line was taken out as was requested by Ortho Dr. Thomas. Patient still has right chest port for dialysis. Nephrology team aware and are okay with this decision. Patient was taken to the OR for surgery at noon with Dr. Thomas. Exam Vital Signs Temp Pulse Resp BP Pulse Ox O2 Del Method 97.7 F 77 19 130/73 95 Room Air 06/17/25 12:00 06/17/25 12:00 06/17/25 12:00 06/17/25 12:00 06/17/25 12:00 06/17/25 12:00 Narrative Exam General: No acute distress, well nourished. Laying comfortably in bed watching TV. Eye: EOMI, normal conjunctiva, no scleral icterus HENT: Normocephalic, atraumatic, normal hearing, moist oral mucosa Neck: Supple, non-tender, no JVD, no lymphadenopathy Lungs: Clear to auscultation bilaterally, non-labored respirations, symmetric chest rise, no use of accessory muscles Heart: Regular rate. Normal S1 and S2, no S3 or S4 appreciated. Normal rate and regular rhythm, no murmurs, rubs gallops, or edema. Peripheral pulses intact bilaterally, capillary refill brisk distally. Right chest dialysis catheter in place. Abdomen: Soft, non-tender, non-distended, normal bowel sounds. No guarding or rebound tenderness. No suprapubic tenderness to palpation noted. Right femoral central line in place. Musculoskeletal: Left leg and externally rotated position. Neurologic: Alert, awake and oriented x3. No focal neuro deficits. Psychiatric: Cooperative, appropriate mood and affect Objective Labs 06/17/25 22:58 06/17/25 05:59 Labs: Laboratory Results - last 24 hr 06/16/25 06/17/25 05:57 05:59 WBC 10.2 RBC 3.13 L Hgb 10.2 L Hct 30.3 L MCV 97 MCH 32.6 MCHC 33.7 RDW Std Deviation 51.3 H Plt Count 182 Neut % (Auto) 67 Lymph % (Auto) 15 [place] % (Auto) 12 Eos % (Auto) 6 Baso % (Auto) 1 Neut # (Auto) 6.8 Lymph # (Auto) 1.6 [place] # (Auto) 1.2 H Eos # (Auto) 0.6 H Baso # (Auto) 0.1 Immature Gran # (Auto) 0.03 H Absolute Nucleated RBC 0.00 Immature Gran % 0 Nucleated RBC % 0 Sodium 137 Potassium 3.7 Chloride 102 Carbon Dioxide 27.4 Anion Gap 8 BUN 14 Creatinine 2.2 H Estim Creat Clear Calc 36.1 L eGFR 33 L BUN/Creatinine Ratio 6 L Glucose 126 H Calculated Osmolality 276 Calcium 8.5 Corrected Calcium 10.0 Phosphorus 3.1 Magnesium 1.7 Total Bilirubin 0.5 AST 28 ALT 29 Alkaline Phosphatase 388 H D Total Protein 4.5 L Albumin 2.1 L Globulin 2.4 Albumin/Globulin Ratio 0.9 L Random Vancomycin 18.0 Hepatitis A IgM Ab Non Reactive Hep Bs Antigen Non Reactive Hep Bs Antibody NonReact(Not Immune) L Hep B Core IgM Ab Non Reactive Hepatitis C Antibody Non Reactive Quality Measures Quality Measures sepsis Current suspected stage: sepsis Possible source: unknown Blood cultures ordered: yes Antibiotic ordered: Yes Assessment & Plan Assessment Current Active Medications: Generic Name Dose Route Start Last Admin Trade Name Freq PRN Reason Stop Dose Admin Acetaminophen 650 mg 06/15/25 08:49 Acetaminophen 325 Mg Tablet PO 07/15/25 01:45 Q6H PRN Fever >100.4 or pain 1-3 Hydrocodone Bitart/Acetaminophen 1 tab 06/15/25 02:25 06/15/25 20:50 Hydrocodone/Apap 5/325 Tablet PO 06/20/25 01:45 1 tab Q4HR PRN Administration PAIN SCALE 4-6 (Moderate Atenolol 25 mg 06/16/25 09:00 06/17/25 08:51 Atenolol 25 Mg Tablet PO 07/16/25 08:59 25 mg BID ERIC Administration Dextrose 25 ml 06/15/25 03:01 Dextrose 50%-Water Inj 50 Ml Syringe IV 07/15/25 03:00 Q15MIN PRN BG 50-70 responsive npo pt Dextrose 50 ml 06/15/25 03:01 Dextrose 50%-Water Inj 50 Ml Syringe IV 07/15/25 03:00 Q15MIN PRN BG <50 OR BG <70 & pt unresponsive Docusate Sodium 100 mg 06/15/25 01:46 Docusate Sod 100 Mg Capsule PO 07/15/25 01:45 QDAY PRN CONSTIPATION Protocol Glucagon 1 mg 06/15/25 03:01 Glucagon Inj 1 Mg Vial IM Q15MIN PRN BG <70, and no IV access Heparin Sodium (Porcine) 5,000 unit 06/15/25 09:00 06/16/25 11:37 Heparin Sod Inj 5000 Unit/Ml Vial SC 06/29/25 08:59 5,000 unit Q12HR ERIC Administration Heparin Sodium (Porcine) 3,500 unit 06/16/25 08:26 06/16/25 11:08 Heparin Sod Inj 1000 Unit/Ml Vial 10 Ml INDWELLCAT 06/30/25 08:25 3,500 unit X1 PRN Administration DIALYSIS Piperacillin Sod/Tazobactam 100 mls @ 200 mls/hr 06/15/25 21:00 06/17/25 09:47 Sod 4.5 gm/ Sodium Chloride IV 06/22/25 20:59 200 mls/hr Q12HR ERIC Administration Albumin Human 25 gm in 100 mls @ 100 mls/min 06/16/25 08:26 Albuminar-25 Ivpb IV 06/19/25 08:25 PRN PRN dialysis. Insulin Human Lispro 0 unit 06/17/25 06:00 06/17/25 05:26 Insulin Lispro (Admelog) 1 Unit/0.01 Ml Unit SC 07/17/25 05:59 Not Given Q6HR ERIC Protocol Morphine Sulfate 2 mg 06/15/25 01:46 06/17/25 11:03 Morphine Sulf Inj 10 Mg/Ml Vial IVP 06/20/25 01:45 2 mg Q2H PRN Administration PAIN SCALE 7-10 (Severe Ondansetron HCl 4 mg 06/15/25 01:46 Ondansetron Inj 2 Mg/Ml Inj 2 Ml IVP 07/15/25 01:45 Q6H PRN NAUSEA OR VOMITING Protocol Pharmacy Consult 1 each 06/15/25 09:00 Vancomycin Pharmacy To Dose 1 Each Each IV 07/15/25 08:59 QDAY PRN PROTOCOL Sennosides 1 tab 06/15/25 01:46 Senna Tablet PO 07/15/25 01:45 QDAY PRN constipation Protocol Plan 65M with PMHx significant for ESRD (on dialysis T//Sun) with Dr. Chadwick, diabetes, CRISTIANO, BPH, gastric bypass presents from SNF with left hip pain s/p ground-level fall admitted for left hip fracture and possible pneumonia. #Left hip intertrochanteric fracture #Right hip greater trochanter fracture #First coccygeal segment fracture #Right first sacral wing fracture Patient had a ground-level fall without loc. CT imaging confirmed left hip fracture. Head CT negative. Patient initially in pain, relieved with morphine. MRI shows acute intertrochanteric fracture left hip without significant displacement Cleared by cardiology for surgery. Ct of bilateral hips revealed acute comminuted intertrochanteric fracture left hip and acute fracture greater trochanter right hip which does extend into the intertrochanteric region right hip, without significant displacement Patient was taken to the OR with Dr. Thomas for bilateral hip cephalomedullary nails. Patient tolerated the procedure well and is in stable condition. Plan: - Heparin DVT 5000 q12 - WBAT - PT/OT - Roll 5 and morphine 2 as needed for pain #Sepsis #Bibasilar CAP Improved Leukocytosis from 14.8 on admission to 10.2. Patient is afebrile. Lactic acid, Pro-Guero, UA negative. Imaging shows vascular congestion, bibasilar PNA Sofa score 2. Negative rapid flu/covid Plan: - Continue Vancomycin pharmacy dosing (started 06/15) - Continue Zosyn 4.5 g IV q12h (started 06/15) (renally dosed) - Blood cultures pending #ESRD on HD (T//Sat) #Anasarca Follows with mortgage funder Dr. Chadwick. Cr 2.2 (at baseline) Albumin 2.1 Plan: -Dialysis tomorrow - Renally dose medications - Strict i and o #Chronic sinus tachycardia Improved sinus tachycardia to 77 Cardiology was consulted. Plan: - Continue atenolol 25 mg BID #Acute liver injury - resolved #Transaminitis - resolved #Elevated alk phos Elevated alk phos most likely 2/[address] showed cirrhosis, mild ascites, distended gallbladder. In regards to gallbladder, patient is asymptomatic and denies any symptoms with eating. Plan: - CTM with daily CMP - Avoid hepatotoxins #Diabetes Patient takes insulin as needed for significantly elevated blood sugar, which he reports is rare. UA 3+ glucose, 1+ protein A1C 5.4 Plan: - ISS #CRISTIANO Patient has history of obstructive sleep apnea. Plan: - BiPAP as needed at bedtime #Normocytic normochromic anemia Most likely secondary to ESRD Hgb improved from 10.8 from yesterday to 11.1. Plan: - CTM with daily CBC #Hypomagnesemia Repleted. Plan: - CTM -Replete as needed Dispo: b/l hip fx surgery, CAP management DVT prophylaxis: Heparin GI prophylaxis: None Bowel reg: Docusate, Senna Diet: Renal Pain mgmt: Tylenol, Roll 5/325 mg q4h, morphine 2 mg IV q2h Lines: Dialysis port, femoral central line Code status: DNR Plan discussed with Dr. Hanna and Dr. Amarilis Araujo, PGY1 Attending Provider Attestation/Addendum I have examined the patient, reviewed labs and imaging findings, discussed the case with the resident(s), and reviewed entered orders. I agree with the plan of care as outlined in this note, with these additional summaries/recommendations: Patient seen at bedside. No acute overnight events. Patient admitted for bilateral intertrochanteric fractures. He reports his pain is controlled today. He is currently n.p.o. and will go for bilateral cephalomedullary nails today with orthopedics. We will follow-up with physical therapy and orthopedics on when to start DVT prophylaxis. Continue antibiotics for pneumonia. In-house nephrology following for end-stage renal disease and inpatient hemodialysis. Patient was noted to have minimal transaminitis on admission which is now resolved. Continue insulin sliding scale for diabetes mellitus type 2 and CPAP at night for CRISTIANO. We will follow-up with patient postoperatively. Patient updated on the plan and agreement. All questions answered to satisfaction. Please see residents note for additional details of management. Dr. Amarilis MD
--- NOTE | 2025-06-17 15:35 | SUR.PHASEI ---
1426: pt arrived to PACU via bed with oral airway present, breathing unalbored, dressing to bilateral hips clean, dry, and intact, pedal pulses present with doppler, report from Varun HAUSER and Dr Saleem 1500: pt tolerating oral fluids without difficulty swallowing or n/v, right lower hip dressing with moderate amount of red drainage present and drainage marked for reference-informed Dr Thomas, dressing reinforced per Dr Thomas instructions. 1535: pt awake, alert, able to follow commands, breathing unlabored, VS stable, dressing to right hip x2 clean and left upper hip clean, dry, and intact, dressing to right lower hip reinforced with jewel wrap-no drainage noted on outer wrap, report called to Cindy HAUSER, pt transferred to room at this time.
[2025-06-17] MEDS: Magnesium Sulfate 2 GM Ivpb 2 GM/50 ML BAG IV (16:31)
--- NOTE | 2025-06-17 17:22 | EVENTNT_ITS ---
Documentation for date of: 06/17/25 Event Note Event Note: Rapid Response Room: [facility] Time: 17:10 Reason for Call: Hypotension, MAP 61 Patient presentation: Lying comfortably in bed, no new complaints, alert and oriented x 3, denies any dizziness. Assessment: On physical exam no edema noted bilateral lower extremities, no hematoma or significant bleeding noted on surgical site at right and left hip. No crackles/wheezing heard bilaterally, vitals assessed, heart rate within normal limits, no tachypnea noted, temp within normal limits, pulse ox stable on room air, blood glucose normal. New orders: 250 cc bolus LR, ordered lactate and H&H. Hold atenolol. Will monitor to monitor vitals. Called and informed primary team resident, will sign out to night team. Case discussed with Attending Physician Dr. Jeremy Flores MD Internal Medicine PGY-2 Disclaimer: This note was dictated by speech recognition. Minor errors in cat swamper may be present due to voice recognition software.
[2025-06-17 18:12] LABS: Lactate (Lactic Acid) 3.1 mMol/L (0.4-2.0)
[2025-06-17 18:14] LABS: Hematocrit 31.7 % (41.0-53.0); Hemoglobin 10.4 g/dL (13.5-16.0)
[2025-06-17] MEDS: RINGERS LACTATED 500 ML 250 ML 999 ML IV (18:42)
[2025-06-17] MEDS: RINGERS LACTATED 1000 ML 500 ML 999 ML IV (20:19)
--- NOTE | 2025-06-17 21:07 | ESPR_ITS ---
<Statement entered by Martin Harrington MD - 06/21/25 18:05> The patient was evaluated examined by me along with PGY 1 Dr. Tonny Richards appears to be clinically doing well underwent surgery postoperative doing fairly well no shortness of the chest pain recovering well no cardiac issues or complication evaluated patient with resident physician agree with the treatment plan recommendation as documented by Dr. Tonny Richards will continue to monitor the patient postoperatively. Documentation for date of: 06/17/25 Subjective Subjective Interval history: No overnight events. Patient had his hip surgery today 06/17/2025. He is comfortable and recovering. Slightly hypotensive likely due to pain medications. Exam Vital Signs Temp Pulse Resp BP Pulse Ox O2 Del Method O2 Flow Rate 97.4 F 80 12 84/58 L 100 Room Air 2 06/17/25 19:30 06/17/25 19:30 06/17/25 19:30 06/17/25 19:30 06/17/25 19:30 06/17/25 19:30 06/17/25 16:00 Narrative Exam General: Lethargic and in no acute distress. Neurologic: GCS 15. Alert and oriented x3, no gross neurological deficit. HEENT: Normocephalic, atraumatic, mucous membranes moist. Pupils reactive to light. Heart: Regular rate and rhythm. No murmurs. Lungs: Clear to auscultation bilaterally with no wheezing or crackles. Abdomen: Soft, nondistended, nontender, positive bowel sounds. No guarding or rebound tenderness. Extremities: Weeping wounds bilateral upper extremities. Multiple bruises in the bilateral upper extremities. Right femoral central line. Surgical bandages around the left hip. 2+ radial and dorsalis pedis pulses bilaterally. Diffuse edema in the lower extremities bilaterally. Skin: Warm. See above. Objective Labs 06/17/25 18:02 06/17/25 05:59 Labs: Laboratory Results - last 24 hr 06/17/25 06/17/25 05:59 18:02 WBC 10.2 RBC 3.13 L Hgb 10.2 L 10.4 L Hct 30.3 L 31.7 L MCV 97 MCH 32.6 MCHC 33.7 RDW Std Deviation 51.3 H Plt Count 182 Neut % (Auto) 67 Lymph % (Auto) 15 [place] % (Auto) 12 Eos % (Auto) 6 Baso % (Auto) 1 Neut # (Auto) 6.8 Lymph # (Auto) 1.6 [place] # (Auto) 1.2 H Eos # (Auto) 0.6 H Baso # (Auto) 0.1 Immature Gran # (Auto) 0.03 H Absolute Nucleated RBC 0.00 Immature Gran % 0 Nucleated RBC % 0 Sodium 137 Potassium 3.7 Chloride 102 Carbon Dioxide 27.4 Anion Gap 8 BUN 14 Creatinine 2.2 H Estim Creat Clear Calc 36.1 L eGFR 33 L BUN/Creatinine Ratio 6 L Glucose 126 H Calculated Osmolality 276 Lactic Acid 3.1 H Calcium 8.5 Corrected Calcium 10.0 Phosphorus 3.1 Magnesium 1.7 Total Bilirubin 0.5 AST 28 ALT 29 Alkaline Phosphatase 388 H D Total Protein 4.5 L Albumin 2.1 L Globulin 2.4 Albumin/Globulin Ratio 0.9 L Random Vancomycin 18.0 Quality Measures Quality Measures sepsis Current suspected stage: sepsis Possible source: unknown Blood cultures ordered: yes Antibiotic ordered: Yes Assessment & Plan Assessment Current Active Medications: Generic Name Dose Route Start Last Admin Trade Name Freq PRN Reason Stop Dose Admin Acetaminophen 650 mg 06/15/25 08:49 Acetaminophen 325 Mg Tablet PO 07/15/25 01:45 Q6H PRN Fever >100.4 or pain 1-3 Hydrocodone Bitart/Acetaminophen 1 tab 06/15/25 02:25 06/15/25 20:50 Hydrocodone/Apap 5/325 Tablet PO 06/20/25 01:45 1 tab Q4HR PRN Administration PAIN SCALE 4-6 (Moderate Atenolol 25 mg 06/16/25 09:00 06/17/25 08:51 Atenolol 25 Mg Tablet PO 07/16/25 08:59 25 mg BID ERIC Administration Dextrose 25 ml 06/15/25 03:01 Dextrose 50%-Water Inj 50 Ml Syringe IV 07/15/25 03:00 Q15MIN PRN BG 50-70 responsive npo pt Dextrose 50 ml 06/15/25 03:01 Dextrose 50%-Water Inj 50 Ml Syringe IV 07/15/25 03:00 Q15MIN PRN BG <50 OR BG <70 & pt unresponsive Docusate Sodium 100 mg 06/15/25 01:46 Docusate Sod 100 Mg Capsule PO 07/15/25 01:45 QDAY PRN CONSTIPATION Protocol Glucagon 1 mg 06/15/25 03:01 Glucagon Inj 1 Mg Vial IM Q15MIN PRN BG <70, and no IV access Heparin Sodium (Porcine) 5,000 unit 06/15/25 09:00 06/16/25 11:37 Heparin Sod Inj 5000 Unit/Ml Vial SC 06/29/25 08:59 5,000 unit Q12HR ERIC Administration Heparin Sodium (Porcine) 3,500 unit 06/16/25 08:26 06/16/25 11:08 Heparin Sod Inj 1000 Unit/Ml Vial 10 Ml INDWELLCAT 06/30/25 08:25 3,500 unit X1 PRN Administration DIALYSIS Piperacillin Sod/Tazobactam 100 mls @ 200 mls/hr 06/15/25 21:00 06/17/25 20:27 Sod 4.5 gm/ Sodium Chloride IV 06/22/25 20:59 200 mls/hr Q12HR ERIC Administration Albumin Human 25 gm in 100 mls @ 100 mls/min 06/16/25 08:26 Albuminar-25 Ivpb IV 06/19/25 08:25 PRN PRN dialysis. Insulin Human Lispro 0 unit 06/17/25 06:00 06/17/25 17:54 Insulin Lispro (Admelog) 1 Unit/0.01 Ml Unit SC 07/17/25 05:59 Not Given Q6HR ERIC Protocol Morphine Sulfate 2 mg 06/15/25 01:46 06/17/25 11:03 Morphine Sulf Inj 10 Mg/Ml Vial IVP 06/20/25 01:45 2 mg Q2H PRN Administration PAIN SCALE 7-10 (Severe Ondansetron HCl 4 mg 06/15/25 01:46 Ondansetron Inj 2 Mg/Ml Inj 2 Ml IVP 07/15/25 01:45 Q6H PRN NAUSEA OR VOMITING Protocol Pharmacy Consult 1 each 06/15/25 09:00 Vancomycin Pharmacy To Dose 1 Each Each IV 07/15/25 08:59 QDAY PRN PROTOCOL Sennosides 1 tab 06/15/25 01:46 Senna Tablet PO 07/15/25 01:45 QDAY PRN constipation Protocol Plan 65-year-old man with a past medical history of end-stage renal disease on dialysis, diabetes, CRISTIANO, BPH, presented to the ED from [facility] by ambulance after a fall resulting in a left intertrochanteric hip fracture. Cardiology was consulted for surgical clearance. #Chronic sinus tachycardia - Patient denied history of cardiac problems, being prescribed any medications for hypertension or tachycardia, and denies shortness of breath on exertion when cardiology was consulted prior to surgery - Patient was tachycardic on consultation, cardiology team started the patient on atenolol 25 mg p.o. twice daily - Patient's heart rate is in the 80s after his procedure Plan: - The patient was cleared for surgery performed on 06/17/2025 from a cardiac standpoint, upon exam he seemed to have tolerated the procedure well and was resting comfortably in his hospital bed - Atenolol was held by the primary team #Left hip intertrochanteric fracture #Sepsis #Community-acquired pneumonia #ESRD on dialysis #Anasarca #Acute liver injury #Diabetes #CRISTIANO The rest of the patient's problems will be managed per the patient's primary team. Patient was seen and discussed with my attending physician Dr. Harrington. Tonny Richards DO PGY-1.
[2025-06-17 21:09] LABS: Reflex Lactate? Y
[2025-06-17 21:52] LABS: Lactic Acid, 3 HR 4.5 mMol/L (0.4-2.0)
[2025-06-17] MEDS: ALBUMIN HUMAN 25% IVPB 25 GM/100 ML BTL IV (21:56)
[2025-06-17] MEDS: MIDODRINE 5 MG TABLET 10 MG PO (22:13)
[2025-06-17] MEDS: RINGERS LACTATED 1000 ML 1,000 ML 999 ML IV (22:29)
--- NOTE | 2025-06-17 22:47 | EVENTNT_ITS ---
Documentation for date of: 06/17/25 Event Note Event Note: Reason for Rapid: Hypotension --> BP 88/54, MAP 60 despite receiving 500 mL IV fluid bolus earlier. Subjective: Patient denies any symptoms including dizziness, chest pain, shortness of breath, or lightheadedness. Objective: * Initial BP: 88/54, MAP 60 after 500 mL bolus. * Recheck BP: improving, last MAP 67. * Albumin level: 2.1 g/dL. * Patient alert, oriented, in no acute distress. Interventions: * Resumed home medication: Midodrine 10 mg PO. * Administered Albumin 25 g IV due to hypotension and low serum albumin (2.1 g/d L). * Later, nurse reported repeat lactate 4.5 mmol/L --> gave 1 L LR bolus. * Ordered repeat H&H. Outcome: Patient tolerated interventions well. BP improving. No acute distress noted. Lactate being trended. Plan: * Continue to monitor BP, symptoms, and MAP. * Repeat MAP checks per protocol. * Notify day team to initiate protein supplementation for hypoalbuminemia. * Monitor lactate trend; follow up on repeat H&H. * Notify primary team of any recurrence or worsening. ----- Plan discussed with attending physician Dr. Clyde Stein MD PGY-1 Internal Medicine
--- NOTE | 2025-06-17 22:47 | PD.RESEVENT ---
Documentation for date of: 06/17/25 Event Note Event Note: Reason for Rapid: Hypotension --> BP 88/54, MAP 60 despite receiving 500 mL IV fluid bolus earlier. Subjective: Patient denies any symptoms including dizziness, chest pain, shortness of breath, or lightheadedness. Objective: Initial BP: 88/54, MAP 60 after 500 mL bolus. Recheck BP: improving, last MAP 67. Albumin level: 2.1 g/dL. Patient alert, oriented, in no acute distress. Interventions: Resumed home medication: Midodrine 10 mg PO. Administered Albumin 25 g IV due to hypotension and low serum albumin (2.1 g/dL). Later, nurse reported repeat lactate 4.5 mmol/L --> gave 1 L LR bolus. Ordered repeat H&H. Outcome: Patient tolerated interventions well. BP improving. No acute distress noted. Lactate being trended. Plan: Continue to monitor BP, symptoms, and MAP. Repeat MAP checks per protocol. Notify day team to initiate protein supplementation for hypoalbuminemia. Monitor lactate trend; follow up on repeat H&H. Notify primary team of any recurrence or worsening. ----- Plan discussed with attending physician Dr. Clyde Stein MD PGY-1 Internal Medicine
[2025-06-17 23:29] LABS: Hematocrit 23.5 % (41.0-53.0)
[2025-06-17 23:30] LABS: Hemoglobin 7.8 g/dL (13.5-16.0)
[2025-06-18] VITALS (32 sets, daily range): BP systolic 93–193; BP diastolic 36–74; PULSE 65–82; RESP 8–99; TEMP 36–37; O2SAT 8–100; BMI 12.0
[2025-06-18 03:04] LABS: Lactate (Lactic Acid) 2.6 mMol/L (0.4-2.0)
[2025-06-18] MEDS: DOCUSATE SOD 100 MG CAPSULE PO (03:53)
[2025-06-18 06:02] LABS: Reflex Lactate? Y
[2025-06-18 08:08] LABS: Lactic Acid, 3 HR 1.0 mMol/L (0.4-2.0)
[2025-06-18 08:15] LABS: Basophils # (Auto) 0.0 Thou/mm3 (0.0-0.2); Basophils % (Auto) 0 % (0-2.5); Eosinophils # (Auto) 0.0 Thou/mm3 (0.0-0.5); Eosinophils % (Auto) 0 % (0-10); Hematocrit 24.3 % (41.0-53.0); Immature Granulocytes Auto 0.06 Thou/mm3 (0.00-0.00); Lymphocytes # (Auto) 1.7 Thou/mm3 (1.0-4.8); Lymphocytes % (Auto) 14 % (10-50); Mean Corpuscular HGB Conc 33.7 g/dl (31.0-37.0); Mean Corpuscular Hemoglobin 31.4 pg (25.0-35.0); Mean Corpuscular Volume 93 fL (80-100); Monocytes # (Auto) 0.9 Thou/mm3 (0.0-0.8); Monocytes % (Auto) 8 % (0-12); Neutrophils # (Auto) 9.0 Thou/mm3 (1.8-7.7); Neutrophils % (Auto) 77 % (37-80); Nucleated Red Blood Cell # 0.00 Thou/mm3 (0.00-0.00); Nucleated Red Blood Cell % 0 /100 WBC (0); Platelet Count 193 Thou/mm3 (140-440); RDW Standard Deviation 54.5 fL (35.1-43.9); Red Blood Count 2.61 Miln/mm3 (4.50-5.90); White Blood Count 11.7 Thou/mm3 (3.8-10.6)
--- NOTE | 2025-06-18 08:19 | ESPR_ITS ---
<Statement entered by Alex Corley MD - 06/18/25 17:16> Patient was examined and case was reviewed with team including attending physician. Note reviewed, I agree with most of its contents and agree with the patient's care as documented by Dr. Araujo Patient seen today at the bedside found awake, alert, orientedx3. Overnight patient developed hypotension with MAP in the low 60s was given midodrine and IV fluids with improvement in maps. Home midodrine was resumed. Vitals and labs reviewed. Patient's hemoglobin noted to be low and was given 1 unit of PRBCs. Patient currently comfortable in bed states adequate pain control at this time. Aspirin and DVT prophylaxis namely heparin were held today due to acute blood loss per laboratories. Will reevaluate in the a.m. Case discussed with my attending Dr. Amarilis Corley MD PGY-2 Disclaimer: Despite multiple revisions, due to the dictation software being used, the document bellow may not be free of grammatical errors including phonetic/typographic errors. However, this does not deter from our commitment to providing health care in the patient's best interest in mind. Documentation for date of: 06/18/25 Subjective Subjective Interval history: 06/18/25: Overnight patient was found to be hypotensive with MAP of 61. 250cc bolus of LR was given and atenolol was hold. Blood pressure did not improve and rapid was called around 2200 for hypotension of 80s/50s and MAP of 60. Patient was asymptomatic. Home midodrine was resumed and albumin 25 was given due to low albumin. Patient was found to have Hgb of 7.8. thus 1x PRBC was given. Blood pressure has improved to 126/60. Attempted to examine and evalute the patient at 0900; however, patient was not in the room and went to complete his dialysis session. on reexamination in the PM, patient is slaying comfortably on the bed eating lunch. Patient states that his pain is gone. Exam Vital Signs Temp Pulse Resp BP Pulse Ox O2 Del Method O2 Flow Rate 98.5 F 74 18 98/74 98 Room Air 2 06/18/25 08:09 06/18/25 08:09 06/18/25 08:09 06/18/25 08:09 06/18/25 08:09 06/18/25 04:00 06/17/25 16:00 Narrative Exam General: No acute distress, well nourished. Laying comfortably in bed watching TV. Eye: EOMI, normal conjunctiva, no scleral icterus HENT: Normocephalic, atraumatic, normal hearing, moist oral mucosa Neck: Supple, non-tender, no JVD, no lymphadenopathy Lungs: Clear to auscultation bilaterally, non-labored respirations, symmetric chest rise, no use of accessory muscles Heart: Regular rate. Normal S1 and S2, no S3 or S4 appreciated. Normal rate and regular rhythm, no murmurs, rubs gallops, or edema. Peripheral pulses intact bilaterally, capillary refill brisk distally. Right chest dialysis catheter in place. Abdomen: Soft, non-tender, non-distended, normal bowel sounds. No guarding or rebound tenderness. No suprapubic tenderness to palpation noted. Musculoskeletal: Dressing applied to bilateral hips. right hip dressing is moderately soaked with blood. Neurologic: Alert, awake and oriented x3. No focal neuro deficits. Psychiatric: Cooperative, appropriate mood and affect Objective Labs 06/18/25 08:00 06/18/25 08:00 Labs: Laboratory Results - last 24 hr 06/17/25 06/17/25 06/17/25 18:02 21:28 22:58 Hgb 10.4 L 7.8 L D Hct 31.7 L 23.5 L Lactic Acid 3.1 H 4.5 H* Blood Type Antibody Screen Crossmatch Blood Bank Wristband ID 06/18/25 06/18/25 00:51 01:31 Hgb Hct Lactic Acid 2.6 H Blood Type B Positive Antibody Screen NEGATIVE Crossmatch See Detail Blood Bank Wristband ID Yes Quality Measures Quality Measures sepsis Current suspected stage: sepsis Possible source: unknown Blood cultures ordered: yes Antibiotic ordered: Yes Assessment & Plan Assessment Current Active Medications: Generic Name Dose Route Start Last Admin Trade Name Freq PRN Reason Stop Dose Admin Acetaminophen 650 mg 06/15/25 08:49 Acetaminophen 325 Mg Tablet PO 07/15/25 01:45 Q6H PRN Fever >100.4 or pain 1-3 Hydrocodone Bitart/Acetaminophen 1 tab 06/15/25 02:25 06/15/25 20:50 Hydrocodone/Apap 5/325 Tablet PO 06/20/25 01:45 1 tab Q4HR PRN Administration PAIN SCALE 4-6 (Moderate Atenolol 25 mg 06/16/25 09:00 06/17/25 08:51 Atenolol 25 Mg Tablet PO 07/16/25 08:59 25 mg BID ERIC Administration Dextrose 25 ml 06/15/25 03:01 Dextrose 50%-Water Inj 50 Ml Syringe IV 07/15/25 03:00 Q15MIN PRN BG 50-70 responsive npo pt Dextrose 50 ml 06/15/25 03:01 Dextrose 50%-Water Inj 50 Ml Syringe IV 07/15/25 03:00 Q15MIN PRN BG <50 OR BG <70 & pt unresponsive Docusate Sodium 100 mg 06/15/25 01:46 06/18/25 03:53 Docusate Sod 100 Mg Capsule PO 07/15/25 01:45 100 mg QDAY PRN Administration CONSTIPATION Protocol Epoetin Larry 10,000 unit 06/18/25 09:00 Epoetin Larry-Epbx Inj 10,000 Unit/Ml Vial (Non-Esrd) IV 06/18/25 09:01 X1 ONE Glucagon 1 mg 06/15/25 03:01 Glucagon Inj 1 Mg Vial IM Q15MIN PRN BG <70, and no IV access Heparin Sodium (Porcine) 5,000 unit 06/15/25 09:00 06/16/25 11:37 Heparin Sod Inj 5000 Unit/Ml Vial SC 06/29/25 08:59 5,000 unit Q12HR ERIC Administration Heparin Sodium (Porcine) 3,500 unit 06/16/25 08:26 06/16/25 11:08 Heparin Sod Inj 1000 Unit/Ml Vial 10 Ml INDWELLCAT 06/30/25 08:25 3,500 unit X1 PRN Administration DIALYSIS Piperacillin Sod/Tazobactam 100 mls @ 200 mls/hr 06/15/25 21:00 06/17/25 20:27 Sod 4.5 gm/ Sodium Chloride IV 06/22/25 20:59 200 mls/hr Q12HR ERIC Administration Albumin Human 25 gm in 100 mls @ 100 mls/min 06/16/25 08:26 Albuminar-25 Ivpb IV 06/19/25 08:25 PRN PRN dialysis. Insulin Human Lispro 0 unit 06/18/25 07:30 Insulin Lispro (Admelog) 1 Unit/0.01 Ml Unit SC 07/18/25 07:29 ACHS ERIC Protocol Midodrine 10 mg 06/18/25 09:00 Midodrine 5 Mg Tablet PO 07/18/25 08:59 TID ERIC Morphine Sulfate 2 mg 06/15/25 01:46 06/17/25 11:03 Morphine Sulf Inj 10 Mg/Ml Vial IVP 06/20/25 01:45 2 mg Q2H PRN Administration PAIN SCALE 7-10 (Severe Nortriptyline HCl 25 mg 06/18/25 21:00 Nortriptyline Hcl 25 Mg Capsule PO 07/18/25 20:59 HS ERIC Ondansetron HCl 4 mg 06/15/25 01:46 Ondansetron Inj 2 Mg/Ml Inj 2 Ml IVP 07/15/25 01:45 Q6H PRN NAUSEA OR VOMITING Protocol Pharmacy Consult 1 each 06/15/25 09:00 Vancomycin Pharmacy To Dose 1 Each Each IV 07/15/25 08:59 QDAY PRN PROTOCOL Sennosides 1 tab 06/15/25 01:46 Senna Tablet PO 07/15/25 01:45 QDAY PRN constipation Protocol Vitamin B Complex/Vit C/Folic Acid 1 tab 06/18/25 09:00 Vitamin B Complex Tablet PO 07/18/25 08:59 QDAY ERIC Plan 65M with PMHx significant for ESRD (on dialysis T//Sun) with Dr. Chadwick, diabetes, CRISTIANO, BPH, gastric bypass presents from SNF with left hip pain s/p ground-level fall admitted for left hip fracture and possible pneumonia. #Left hip intertrochanteric fracture #Right hip greater trochanter fracture #First coccygeal segment fracture #Right first sacral wing fracture Patient had a ground-level fall without loc. CT imaging confirmed left hip fracture. Head CT negative. Patient initially in pain, relieved with morphine. MRI shows acute intertrochanteric fracture left hip without significant displacement Cleared by cardiology for surgery. Ct of bilateral hips revealed acute comminuted intertrochanteric fracture left hip and acute fracture greater trochanter right hip which does extend into the intertrochanteric region right hip, without significant displacement POD#1: Patient is now S/P bilateral hip cephalomedullary nails. Patient tolerated the procedure well and is in stable condition. Overnight, patient was found to be hypotensive with MAP of 61. 250cc bolus of LR was given and atenolol was hold. Blood pressure did not improve and rapid was called around 2200 for hypotension of 80s/50s and MAP of 60. Patient was asymptomatic. Home midodrine was resumed and albumin 25 was given due to low albumin. Patient was found to have Hgb of 7.8. thus 1x PRBC was given. Blood pressure has improved to 126/60. Lactate improved to 1.0. Plan: - Restart home Midodrine - Held heparin DVT 5000 q12 for low hemoglobin and bleeding. - WBAT - PT/OT - [place] 5 and morphine 2 as needed for pain - Patient needs to follow up with Dr. Thomas outpatient in 2 weeks #Sepsis #Bibasilar CAP Improved Leukocytosis from 14.8 on admission to 11.7. Patient is afebrile. Lactic acid, Pro-Guero, UA negative. Imaging shows vascular congestion, bibasilar PNA Sofa score 2. Negative rapid flu/covid Plan: - Continue Vancomycin pharmacy dosing (started 06/15) - Continue Zosyn 4.5 g IV q12h (started 06/15) (renally dosed) - Blood cultures pending #ESRD on HD (//Sun) #Anasarca Follows with [facility] Dr. Chadwick. Cr 2.5 (at baseline) Albumin 2.1 Plan: - Completed dialysis today - Renally dose medications - Strict i and o #Chronic sinus tachycardia #Hypotension Improved sinus tachycardia to 77 Cardiology was consulted. Plan: - Restart home Midodrine - Held atenolol 25 mg BID for episode of hypotension #Acute liver injury - resolved #Transaminitis - resolved #Elevated alk phos Elevated alk phos most likely 2/[address] showed cirrhosis, mild ascites, distended gallbladder. In regards to gallbladder, patient is asymptomatic and denies any symptoms with eating. Plan: - CTM with daily CMP - Avoid hepatotoxins #Diabetes Patient takes insulin as needed for significantly elevated blood sugar, which he reports is rare. UA 3+ glucose, 1+ protein A1C 5.4 Plan: - ISS #CRISTIANO Patient has history of obstructive sleep apnea. Plan: - BiPAP as needed at bedtime #Normocytic normochromic anemia Most likely secondary to ESRD Recent drop of Hgb is most likely due to blood loss during surgery. PRBC 1x given. Plan: - Follow H&H - CTM with daily CBC #Hypomagnesemia Plan: - CTM -Replete as needed Dispo: b/l hip fx surgery, CAP management DVT prophylaxis: held Heparin GI prophylaxis: None Bowel reg: Docusate, Senna Diet: Renal Pain mgmt: Tylenol, [place] 5/325 mg q4h, morphine 2 mg IV q2h Lines: Dialysis port Code status: DNR Plan discussed with Dr. Hanna and Dr. Amarilis Araujo DO PGY1 Attending Provider Attestation/Addendum I have examined the patient, reviewed labs and imaging findings, discussed the case with the resident(s), and reviewed entered orders. I agree with the plan of care as outlined in this note, with these additional summaries/recommendations: Patient seen at bedside. Overnight patient had rapid response for hypotension and was given fluid bolus. Patient was also noted to have lactic acidosis most likely type a from hypotension. Patient was started on maintenance fluids and lactic acid now back within normal limits. Continue patient's home midodrine. Patient admitted for bilateral intertrochanteric fractures. He is postoperative day #1 status post bilateral cephalomedullary nails with orthopedics. Patient had a 2 point drop in hemoglobin although we will hold DVT prophylaxis for now. Drop in hemoglobin likely related to surgery as no evidence of GI bleed or hematuria. We will follow-up with physical therapy and orthopedics on when to start DVT prophylaxis. Continue antibiotics for pneumonia. In-house nephrology following for end-stage renal disease and inpatient hemodialysis. Patient was noted to have minimal transaminitis on admission which is now resolved. Continue insulin sliding scale for diabetes mellitus type 2 and CPAP at night for CRISTIANO. We will follow-up with patient postoperatively. Patient updated on the plan and agreement. All questions answered to satisfaction. Please see residents note for additional details of management. Dr. Amarilis MD
[2025-06-18 08:34] LABS: Hemoglobin 8.2 g/dL (13.5-16.0)
[2025-06-18 08:45] LABS: Alanine Aminotransferase 97 U/L (10-49); Albumin, Serum 2.1 gm/dL (3.4-4.8); Albumin/Globulin Ratio 1.1 (1.2-2.2); Alkaline Phosphatase 448 U/L (46-116); Anion Gap 11 (7-16); Aspartate Amino Transferase 167 U/L (0-34); BUN/Creatinine Ratio 7 Ratio (12-20); Bilirubin,Total 1.0 mg/dL (0.3-1.2); Blood Urea Nitrogen 18 mg/dL (9-23); Calcium 8.1 mg/dL (8.3-10.6); Calcium (Corrected) 9.6 mg/dL (8.5-10.1); Carbon Dioxide 24.4 mMol/L (20.0-31.0); Chloride 103 mMol/L (98-107); Creatinine (Component) 2.5 mg/dL (0.6-1.3); Estimated Creatinine Clearance 31.8 mL/min (>60); Globulin 2.0 gm/dL (2.3-3.5); Glucose 134 mg/dL (74-106); Magnesium 2.2 mg/dL (1.6-2.6); Osmolality,Calculated 279 (275-295); Phosphorous 5.0 mg/dL (2.4-5.1); Potassium 4.5 mMol/L (3.4-5.1); Sodium 138 mMol/L (136-145); Total Protein 4.1 gm/dL (5.7-8.2); Vancomycin,Random 21.1 mcg/mL; eGFR 28 See Note
--- NOTE | 2025-06-18 09:11 | ESPR_ITS ---
Documentation for date of: 06/18/25 Subjective Subjective Interval history: Mr. Gonzalez is a 65 y/o M with PMHx significant for ESRD (//Sun) with Dr. Chadwick at [facility], diabetes, CRISTIANO, BPH, gastric bypass presents from SNF with left hip pain s/p ground-level fall with witnessed head strike. Pt states that he was standing, and while bending down to lower his pants to use the restroom, he started to fall forward. His nurse was with him and tried to catch him but they both fell to the ground. no LOC. He landed on his Left side. Found to have ?bilateral hip fractures and L femur fracture on xray and CT, MRI machine is down. Interval History 06/15/2025 Nephorology consulted for ESRD on TTS HD. patient seen and examined at bedside. reports that he has been attending HD regularly at [facility]. He states that he has L hip and femur fracture with plan for surgery this sunday, 06/[address] Thomas. On exam, he has BUE edema in the forearms to elbow, with RUE contusions on forearm 2/2 needle sticks not his ground level fall. He has nl work of breathing, tachycardic on exam to 120s. He has catheter on R chest for HD. Cr. 2.3 from 2.1 BUN 15 from 13. He states that he is pending a fistula on the LUE. Plan for HD 06/16 prior to surgery on 06/17. 06/16/2025: Patient seen and examined in HD. (TTS) reports that he lost his L glove that he wears because his hands are offten cold. Pt states that his pain is well controlled and that he has no new concerns. Of note MRI machine is down, query whether pt has bilateral hip fractures. On exam pt has nl work of breathing, pt remains tachycardic to 130s, Cr 2.6 from 2.3, BUN 16 from 15. tolerating HD well. Plan for surgery tomorrow with Dr. Thomas for multiple fractures. 06/18/2025: Patient had 2 rapid responses called for hypotension yesterday (17:10 and 22:47, 06/17). During the 1st RR, patient had their atenolol held and was given a 250 mL LR bolus. During the 2nd RR, patient had their home Midodrine resumed, given IV albumin, and given 1 L LR bolus. Patient seen and examined at bedside; they report feeling generally well today with no new complaints or concerns. Notable labs today include: Hgb 8.2, creatinine bump to 2.5 from 2.2, eGFR drop to 28 from 33, lactic acid drop to 1.0 from 2.6, AST bump to 167 from 28, ALT bump to 97 from 29, alkaline phosphatase bump to 448 from 388. From nephrology's standpoint, patient will be receiving HD today. Exam Vital Signs Temp Pulse Resp BP Pulse Ox O2 Del Method O2 Flow Rate 98.2 F 81 18 149/73 H 98 Room Air 2 06/18/25 09:02 06/18/25 09:02 06/18/25 09:02 06/18/25 09:02 06/18/25 08:09 06/18/25 08:00 06/17/25 16:00 Narrative Exam GENERAL: no acute distress, AAO x3, comfortably laying in HD bed HEENT: Head AT/ NC. Mucous membranes moist. PERRL. some small bruises on the face. CARDIOVASCULAR: tachycardic to 130s on monitor . Normal S1/S2, No m/r/g. LLE 1+ edema to mid hernandez, RLE with skin wrinkling, trace edema skin . BUE with edema to elbows, query lymphedema? R HD catheter RESPIRATORY: nl work of breathing . No wheezing, rhonchi, crackles, in upper lung melgar, GASTROINTESTINAL: Abdomen soft, non tender no palpable masses. Bowel sounds present, fem cath. MUSCULOSKELETAL:? No cyanosis, no visible joint swelling. pt wearing glove on RUE, reports having lost L glove, pulses intact in all 4 extrem. LLE flexed and abducted NEUROLOGICAL: CN II-XII grossly intact. No focal deficits. Sensation intact, symmetric. speech is slow. PSYCHIATRIC: Awake and alert, not agitated, affect is flat. SKIN: RUE contusions violacious, on dorsal forearm. Objective Labs 06/19/25 06:56 06/19/25 06:56 Labs: Laboratory Results - last 24 hr 06/17/25 06/17/25 06/17/25 18:02 21:28 22:58 WBC RBC Hgb 10.4 L 7.8 L D Hct 31.7 L 23.5 L MCV MCH MCHC RDW Std Deviation Plt Count Neut % (Auto) Lymph % (Auto) [place] % (Auto) Eos % (Auto) Baso % (Auto) Neut # (Auto) Lymph # (Auto) [place] # (Auto) Eos # (Auto) Baso # (Auto) Immature Gran # (Auto) Absolute Nucleated RBC Immature Gran % Nucleated RBC % Sodium Potassium Chloride Carbon Dioxide Anion Gap BUN Creatinine Estim Creat Clear Calc eGFR BUN/Creatinine Ratio Glucose Calculated Osmolality Lactic Acid 3.1 H 4.5 H* Calcium Corrected Calcium Phosphorus Magnesium Total Bilirubin AST ALT Alkaline Phosphatase Total Protein Albumin Globulin Albumin/Globulin Ratio Random Vancomycin Blood Type Antibody Screen Crossmatch Blood Bank Wristband ID 06/18/25 06/18/25 06/18/25 00:51 01:31 08:00 WBC 11.7 H RBC 2.61 L Hgb 8.2 L Hct 24.3 L MCV 93 MCH 31.4 MCHC 33.7 RDW Std Deviation 54.5 H Plt Count 193 Neut % (Auto) 77 Lymph % (Auto) 14 [place] % (Auto) 8 Eos % (Auto) 0 Baso % (Auto) 0 Neut # (Auto) 9.0 H Lymph # (Auto) 1.7 [place] # (Auto) 0.9 H Eos # (Auto) 0.0 Baso # (Auto) 0.0 Immature Gran # (Auto) 0.06 H Absolute Nucleated RBC 0.00 Immature Gran % 1 H Nucleated RBC % 0 Sodium 138 Potassium 4.5 D Chloride 103 Carbon Dioxide 24.4 Anion Gap 11 BUN 18 Creatinine 2.5 H Estim Creat Clear Calc 31.8 L eGFR 28 L BUN/Creatinine Ratio 7 L Glucose 134 H Calculated Osmolality 279 Lactic Acid 2.6 H 1.0 Calcium 8.1 L Corrected Calcium 9.6 Phosphorus 5.0 Magnesium 2.2 Total Bilirubin 1.0 D AST 167 H ALT 97 H Alkaline Phosphatase 448 H D Total Protein 4.1 L Albumin 2.1 L Globulin 2.0 L Albumin/Globulin Ratio 1.1 L Random Vancomycin 21.1 Blood Type B Positive Antibody Screen NEGATIVE Crossmatch See Detail Blood Bank Wristband ID Yes Quality Measures Quality Measures sepsis Current suspected stage: sepsis Possible source: unknown Blood cultures ordered: yes Antibiotic ordered: Yes Assessment & Plan Assessment Current Active Medications: Generic Name Dose Route Start Last Admin Trade Name Freq PRN Reason Stop Dose Admin Acetaminophen 650 mg 06/15/25 08:49 Acetaminophen 325 Mg Tablet PO 07/15/25 01:45 Q6H PRN Fever >100.4 or pain 1-3 Hydrocodone Bitart/Acetaminophen 1 tab 06/15/25 02:25 06/15/25 20:50 Hydrocodone/Apap 5/325 Tablet PO 06/20/25 01:45 1 tab Q4HR PRN Administration PAIN SCALE 4-6 (Moderate Atenolol 25 mg 06/16/25 09:00 06/17/25 08:51 Atenolol 25 Mg Tablet PO 07/16/25 08:59 25 mg BID ERIC Administration Dextrose 25 ml 06/15/25 03:01 Dextrose 50%-Water Inj 50 Ml Syringe IV 07/15/25 03:00 Q15MIN PRN BG 50-70 responsive npo pt Dextrose 50 ml 06/15/25 03:01 Dextrose 50%-Water Inj 50 Ml Syringe IV 07/15/25 03:00 Q15MIN PRN BG <50 OR BG <70 & pt unresponsive Docusate Sodium 100 mg 06/15/25 01:46 06/18/25 03:53 Docusate Sod 100 Mg Capsule PO 07/15/25 01:45 100 mg QDAY PRN Administration CONSTIPATION Protocol Glucagon 1 mg 06/15/25 03:01 Glucagon Inj 1 Mg Vial IM Q15MIN PRN BG <70, and no IV access Heparin Sodium (Porcine) 5,000 unit 06/15/25 09:00 06/16/25 11:37 Heparin Sod Inj 5000 Unit/Ml Vial SC 06/29/25 08:59 5,000 unit Q12HR ERIC Administration Heparin Sodium (Porcine) 3,500 unit 06/16/25 08:26 06/16/25 11:08 Heparin Sod Inj 1000 Unit/Ml Vial 10 Ml INDWELLCAT 06/30/25 08:25 3,500 unit X1 PRN Administration DIALYSIS Piperacillin Sod/Tazobactam 100 mls @ 200 mls/hr 06/15/25 21:00 06/17/25 20:27 Sod 4.5 gm/ Sodium Chloride IV 06/22/25 20:59 200 mls/hr Q12HR ERIC Administration Albumin Human 25 gm in 100 mls @ 100 mls/min 06/16/25 08:26 Albuminar-25 Ivpb IV 06/19/25 08:25 PRN PRN dialysis. Insulin Human Lispro 0 unit 06/18/25 07:30 Insulin Lispro (Admelog) 1 Unit/0.01 Ml Unit SC 07/18/25 07:29 ACHS [facility] Protocol Midodrine 10 mg 06/18/25 09:00 Midodrine 5 Mg Tablet PO 07/18/25 08:59 TID ERIC Morphine Sulfate 2 mg 06/15/25 01:46 06/17/25 11:03 Morphine Sulf Inj 10 Mg/Ml Vial IVP 06/20/25 01:45 2 mg Q2H PRN Administration PAIN SCALE 7-10 (Severe Nortriptyline HCl 25 mg 06/18/25 21:00 Nortriptyline Hcl 25 Mg Capsule PO 07/18/25 20:59 HS [facility] Ondansetron HCl 4 mg 06/15/25 01:46 Ondansetron Inj 2 Mg/Ml Inj 2 Ml IVP 07/15/25 01:45 Q6H PRN NAUSEA OR VOMITING Protocol Pharmacy Consult 1 each 06/15/25 09:00 Vancomycin Pharmacy To Dose 1 Each Each IV 07/15/25 08:59 QDAY PRN PROTOCOL Sennosides 1 tab 06/15/25 01:46 Senna Tablet PO 07/15/25 01:45 QDAY PRN constipation Protocol Vitamin B Complex/Vit C/Folic Acid 1 tab 06/18/25 09:00 Vitamin B Complex Tablet PO 07/18/25 08:59 QDAY ERIC Plan 65 y/o M with PMHx significant for ESRD (//Sun) with Dr. Chadwick at [facility], hx of R renal kidney removal, well controlled T2DM , CRISTIANO, BPH, gastric bypass presents from SNF with left hip pain s/p ground-level fall admitted for left hip fracture and possible pneumonia. s/p 06/[address] Thomas. HD today as per HD schedule. #ESRD on HD (T//Sun) Patient has ESRD as stated. Follows with certified midwife Dr. Chadwick at [facility]. Patient has significant anasarca, BUE edema and LLE 1+ edema with RLE trace edema. Albumin 2.8. On 06/15 Cr 2.3 from 2.1, BUN 15 from 13 On 06/16 Cr 2.6 from 2.3, BUN 16 from 15 On 06/18 Cr 2.5 from 2.2, BUN 18 from 14 HD: 06/16 Plan: - HD today - Renally dose medications - strict i and o #Normocytic normochromic anemia - likely 2/2 ESRD #query R hip fracture? #Left hip intertrochanteric fracture #Right hip greater trochanter fracture #First coccygeal segment fracture #Right first sacral wing fracture MRI machine is down, unable to obtain, - fractures seen on xray and CT. - plan for Surgery with Dr. Thomas 06/17 #T2DM on insulin PRN- well controlled. Patient history as stated. Patient takes insulin as needed for significantly elevated blood sugar, which he reports is rare. A1c 5.7% as of 12/09/24. AM glucose 133 UA 3+ glucose, 1+ protein -Management as per primary team #Sepsis 2/2 CAP with end organ damage given transaminitis #Bibasilar CAP- on vanc and zosyn - renally dose vanc #Acute liver injury #CRISTIANO #electrolyte abnormalities- replete as indicated #sinus tachycardia to 130s - query 2/2 pain or dehydration, or CAP infection. - cards consult for cardiac clearance prior to surgery- CLEARED -started atenolol 25 BID #query HTN - Management as per primary team. Plan discussed with nephrology attending Dr. Ediwn Alex, DO PGY-1 Internal Medicine Attending Provider Attestation/Addendum Patient seen and examined with resident physician Dr. Alex. Note reviewed, agree with findings and recommendations. Status post ground-level fall with a left and rt hip fracture. s/p surgery with Dr. Thomas. Lost significant amount of weight. I know him from my CKD clinic in the past. Patient currently seen on dialysis. Tolerating dialysis without any problems. Hemodialysis for 3 hours, 2K, ultrafiltration 2 L, Epogen 6000, no heparin ordered. Plan of care discussed with the dialysis nurse. Please see dialysis flowsheet for further details.
[2025-06-18] MEDS: EPOETIN ALFA-EPBX INJ 10,000 UNIT/ML VIAL (NON-ESRD) 10000 UNIT IV (10:39)
[2025-06-18] MEDS: ONDANSETRON INJ 2 MG/ML INJ 2 ML 4 MG IVP (10:54)
[2025-06-18] MEDS: PIPER/TAZO INJ 4.5 GM in SODIUM CHLORIDE 0.9% (POP) 100 ML IV ×2 (11:47→21:21)
[2025-06-18] MEDS: VITAMIN B COMPLEX TABLET 1 TAB PO (11:48)
[2025-06-18] MEDS: MORPHINE SULF INJ 10 MG/ML VIAL 2 MG IVP (14:00)
--- NOTE | 2025-06-18 14:59 | PC.SS ---
SS follow up note; Patient had surgery yesterday, Rapid last night. Patient will discharge back to [facility] when medically cleared.
--- NOTE | 2025-06-18 15:12 | ESPR_ITS ---
Subjective Subjective Brief History: Patient is a 65-year-old male with end-stage renal disease and bilateral hip pain after ground-level fall. He was a baseline ambulator using a walker. He has multiple medical committees including sleep apnea, diabetes, and is end- stage renal disease on dialysis.. He reports that both legs hurt. Narrative: Patient is doing well postop from bilateral cephalomedullary nails. There is some drainage on the right distal incision. It has now stopped with a pressure dressing Exam Vital Signs Temp Pulse Resp BP Pulse Ox O2 Del Method O2 Flow Rate 97.0 F 73 16 129/60 96 Room Air 2 06/18/25 12:00 06/18/25 14:00 06/18/25 14:00 06/18/25 12:00 06/18/25 12:00 06/18/25 12:00 06/17/25 16:00 Additional findings Additional findings: Patient is in no acute distress and is cooperative with the examination today. Patient has a normal mood and affect. Breathing is nonlabored. In no respiratory distress. Bilateral extremities were evaluated and demonstrates sensation intact to light touch. Palpable pedal pulses are present. No significant edema is present. Bilateral hip incisions are now clean dry intact. There is dried blood on the right distal incision Objective - Ortho Labs 06/18/25 08:00 06/18/25 08:00 Labs: Laboratory Results - last 24 hr 06/17/25 06/17/25 06/17/25 18:02 21:28 22:58 WBC RBC Hgb 10.4 L 7.8 L D Hct 31.7 L 23.5 L MCV MCH MCHC RDW Std Deviation Plt Count Neut % (Auto) Lymph % (Auto) [place] % (Auto) Eos % (Auto) Baso % (Auto) Neut # (Auto) Lymph # (Auto) [place] # (Auto) Eos # (Auto) Baso # (Auto) Immature Gran # (Auto) Absolute Nucleated RBC Immature Gran % Nucleated RBC % Sodium Potassium Chloride Carbon Dioxide Anion Gap BUN Creatinine Estim Creat Clear Calc eGFR BUN/Creatinine Ratio Glucose Calculated Osmolality Lactic Acid 3.1 H 4.5 H* Calcium Corrected Calcium Phosphorus Magnesium Total Bilirubin AST ALT Alkaline Phosphatase Total Protein Albumin Globulin Albumin/Globulin Ratio Random Vancomycin Blood Type Antibody Screen Crossmatch Blood Bank Wristband ID 06/18/25 06/18/25 06/18/25 00:51 01:31 08:00 WBC 11.7 H RBC 2.61 L Hgb 8.2 L Hct 24.3 L MCV 93 MCH 31.4 MCHC 33.7 RDW Std Deviation 54.5 H Plt Count 193 Neut % (Auto) 77 Lymph % (Auto) 14 [place] % (Auto) 8 Eos % (Auto) 0 Baso % (Auto) 0 Neut # (Auto) 9.0 H Lymph # (Auto) 1.7 [place] # (Auto) 0.9 H Eos # (Auto) 0.0 Baso # (Auto) 0.0 Immature Gran # (Auto) 0.06 H Absolute Nucleated RBC 0.00 Immature Gran % 1 H Nucleated RBC % 0 Sodium 138 Potassium 4.5 D Chloride 103 Carbon Dioxide 24.4 Anion Gap 11 BUN 18 Creatinine 2.5 H Estim Creat Clear Calc 31.8 L eGFR 28 L BUN/Creatinine Ratio 7 L Glucose 134 H Calculated Osmolality 279 Lactic Acid 2.6 H 1.0 Calcium 8.1 L Corrected Calcium 9.6 Phosphorus 5.0 Magnesium 2.2 Total Bilirubin 1.0 D AST 167 H ALT 97 H Alkaline Phosphatase 448 H D Total Protein 4.1 L Albumin 2.1 L Globulin 2.0 L Albumin/Globulin Ratio 1.1 L Random Vancomycin 21.1 Blood Type B Positive Antibody Screen NEGATIVE Crossmatch See Detail Blood Bank Wristband ID Yes Assessment & Plan Diagnosis (1) Intertrochanteric fracture of both femurs: Status: Acute Assessment Additional comments: 65yo male with bilateral hip introchanteric fractures with the right side being confirmed on CT and MRI. He is status post cephalomedullary nails and is doing well. we will see him back in 2 weeks for routine follow-up for his cephalomedullary nails -DVT prophylaxis -Follow-up in 2 weeks -Weightbearing as tolerated
--- NOTE | 2025-06-18 20:07 | ESPR_ITS ---
<Statement entered by Martin Harrington MD - 06/21/25 18:06> I personally examined evaluated the patient postop day 1 appears to be clinically doing better following hip surgery no chest pain shortness of breath no cardiac arrhythmias no evidence of volume overload or heart failure although essential complains of progressive for reviewed we will continue to monitor the patient closely if there are any cardiac issues. Documentation for date of: 06/18/25 Subjective Subjective Interval history: No overnight events. Patient is postop day 1 from left hip fracture surgery repair and resting comfortably. The patient's pulse rate continues to be controlled. Cardiology will sign off. Exam Vital Signs Temp Pulse Resp BP Pulse Ox O2 Del Method O2 Flow Rate 97.2 F 82 18 128/70 97 Room Air 2 06/18/25 16:00 06/18/25 17:48 06/18/25 16:00 06/18/25 16:00 06/18/25 16:00 06/18/25 16:00 06/17/25 16:00 Narrative Exam General: Lethargic and in no acute distress. Neurologic: GCS 15. Alert and oriented x3, no gross neurological deficit. HEENT: Normocephalic, atraumatic, mucous membranes moist. Pupils reactive to light. Heart: Regular rate and rhythm. No murmurs. Lungs: Clear to auscultation bilaterally with no wheezing or crackles. Abdomen: Soft, nondistended, nontender, positive bowel sounds. No guarding or rebound tenderness. Extremities: Weeping wounds bilateral upper extremities. Multiple bruises in the bilateral upper extremities. Right femoral central line. Surgical bandages around the left hip. 2+ radial and dorsalis pedis pulses bilaterally. Diffuse edema in the lower extremities bilaterally. Skin: Warm. See above. Objective Labs 06/18/25 08:00 06/18/25 08:00 Labs: Laboratory Results - last 24 hr 06/17/25 06/17/25 06/18/25 21:28 22:58 00:51 WBC RBC Hgb 7.8 L D Hct 23.5 L MCV MCH MCHC RDW Std Deviation Plt Count Neut % (Auto) Lymph % (Auto) [place] % (Auto) Eos % (Auto) Baso % (Auto) Neut # (Auto) Lymph # (Auto) [place] # (Auto) Eos # (Auto) Baso # (Auto) Immature Gran # (Auto) Absolute Nucleated RBC Immature Gran % Nucleated RBC % Sodium Potassium Chloride Carbon Dioxide Anion Gap BUN Creatinine Estim Creat Clear Calc eGFR BUN/Creatinine Ratio Glucose Calculated Osmolality Lactic Acid 4.5 H* Calcium Corrected Calcium Phosphorus Magnesium Total Bilirubin AST ALT Alkaline Phosphatase Total Protein Albumin Globulin Albumin/Globulin Ratio Random Vancomycin Blood Type B Positive Antibody Screen NEGATIVE Crossmatch See Detail Blood Bank Wristband ID Yes 06/18/25 06/18/25 01:31 08:00 WBC 11.7 H RBC 2.61 L Hgb 8.2 L Hct 24.3 L MCV 93 MCH 31.4 MCHC 33.7 RDW Std Deviation 54.5 H Plt Count 193 Neut % (Auto) 77 Lymph % (Auto) 14 [place] % (Auto) 8 Eos % (Auto) 0 Baso % (Auto) 0 Neut # (Auto) 9.0 H Lymph # (Auto) 1.7 [place] # (Auto) 0.9 H Eos # (Auto) 0.0 Baso # (Auto) 0.0 Immature Gran # (Auto) 0.06 H Absolute Nucleated RBC 0.00 Immature Gran % 1 H Nucleated RBC % 0 Sodium 138 Potassium 4.5 D Chloride 103 Carbon Dioxide 24.4 Anion Gap 11 BUN 18 Creatinine 2.5 H Estim Creat Clear Calc 31.8 L eGFR 28 L BUN/Creatinine Ratio 7 L Glucose 134 H Calculated Osmolality 279 Lactic Acid 2.6 H 1.0 Calcium 8.1 L Corrected Calcium 9.6 Phosphorus 5.0 Magnesium 2.2 Total Bilirubin 1.0 D AST 167 H ALT 97 H Alkaline Phosphatase 448 H D Total Protein 4.1 L Albumin 2.1 L Globulin 2.0 L Albumin/Globulin Ratio 1.1 L Random Vancomycin 21.1 Blood Type Antibody Screen Crossmatch Blood Bank Wristband ID Quality Measures Quality Measures sepsis Current suspected stage: sepsis Possible source: unknown Blood cultures ordered: yes Antibiotic ordered: Yes Assessment & Plan Assessment Current Active Medications: Generic Name Dose Route Start Last Admin Trade Name Freq PRN Reason Stop Dose Admin Acetaminophen 650 mg 06/15/25 08:49 Acetaminophen 325 Mg Tablet PO 07/15/25 01:45 Q6H PRN Fever >100.4 or pain 1-3 Hydrocodone Bitart/Acetaminophen 1 tab 06/15/25 02:25 06/15/25 20:50 Hydrocodone/Apap 5/325 Tablet PO 06/20/25 01:45 1 tab Q4HR PRN Administration PAIN SCALE 4-6 (Moderate Atenolol 25 mg 06/16/25 09:00 06/17/25 08:51 Atenolol 25 Mg Tablet PO 07/16/25 08:59 25 mg BID ERIC Administration Dextrose 25 ml 06/15/25 03:01 Dextrose 50%-Water Inj 50 Ml Syringe IV 07/15/25 03:00 Q15MIN PRN BG 50-70 responsive npo pt Dextrose 50 ml 06/15/25 03:01 Dextrose 50%-Water Inj 50 Ml Syringe IV 07/15/25 03:00 Q15MIN PRN BG <50 OR BG <70 & pt unresponsive Docusate Sodium 100 mg 06/15/25 01:46 06/18/25 03:53 Docusate Sod 100 Mg Capsule PO 07/15/25 01:45 100 mg QDAY PRN Administration CONSTIPATION Protocol Glucagon 1 mg 06/15/25 03:01 Glucagon Inj 1 Mg Vial IM Q15MIN PRN BG <70, and no IV access Heparin Sodium (Porcine) 5,000 unit 06/15/25 09:00 06/16/25 11:37 Heparin Sod Inj 5000 Unit/Ml Vial SC 06/29/25 08:59 5,000 unit Q12HR ERIC Administration Heparin Sodium (Porcine) 3,500 unit 06/16/25 08:26 06/16/25 11:08 Heparin Sod Inj 1000 Unit/Ml Vial 10 Ml INDWELLCAT 06/30/25 08:25 3,500 unit X1 PRN Administration DIALYSIS Piperacillin Sod/Tazobactam 100 mls @ 200 mls/hr 06/15/25 21:00 06/18/25 11:47 Sod 4.5 gm/ Sodium Chloride IV 06/22/25 20:59 200 mls/hr Q12HR ERIC Administration Albumin Human 25 gm in 100 mls @ 100 mls/min 06/16/25 08:26 Albuminar-25 Ivpb IV 06/19/25 08:25 PRN PRN dialysis. Insulin Human Lispro 0 unit 06/18/25 07:30 06/18/25 17:49 Insulin Lispro (Admelog) 1 Unit/0.01 Ml Unit SC 07/18/25 07:29 Not Given ACHS ERIC Protocol Midodrine 10 mg 06/18/25 09:00 06/18/25 14:53 Midodrine 5 Mg Tablet PO 07/18/25 08:59 Not Given TID ERIC Morphine Sulfate 2 mg 06/15/25 01:46 06/18/25 14:00 Morphine Sulf Inj 10 Mg/Ml Vial IVP 06/20/25 01:45 2 mg Q2H PRN Administration PAIN SCALE 7-10 (Severe Nortriptyline HCl 25 mg 06/18/25 21:00 Nortriptyline Hcl 25 Mg Capsule PO 07/18/25 20:59 HS ERIC Ondansetron HCl 4 mg 06/15/25 01:46 06/18/25 10:54 Ondansetron Inj 2 Mg/Ml Inj 2 Ml IVP 07/15/25 01:45 4 mg Q6H PRN Administration NAUSEA OR VOMITING Protocol Pharmacy Consult 1 each 06/15/25 09:00 Vancomycin Pharmacy To Dose 1 Each Each IV 07/15/25 08:59 QDAY PRN PROTOCOL Sennosides 1 tab 06/15/25 01:46 Senna Tablet PO 07/15/25 01:45 QDAY PRN constipation Protocol Vitamin B Complex/Vit C/Folic Acid 1 tab 06/18/25 09:00 06/18/25 11:48 Vitamin B Complex Tablet PO 07/18/25 08:59 1 tab QDAY ERIC Administration Plan 65-year-old man with a past medical history of end-stage renal disease on dialysis, diabetes, CRISTIANO, BPH, presented to the ED from [facility] by ambulance after a fall resulting in a left intertrochanteric hip fracture. Cardiology was consulted for surgical clearance. #Chronic sinus tachycardia - Patient denied history of cardiac problems, being prescribed any medications for hypertension or tachycardia, and denies shortness of breath on exertion when cardiology was consulted prior to surgery - Patient was tachycardic on consultation, cardiology team started the patient on atenolol 25 mg p.o. twice daily - Patient's heart rate remains in the 80s after his procedure Plan: - The patient was cleared for surgery performed on 06/17/2025 from a cardiac standpoint, upon exam he seemed to have tolerated the procedure well and was resting comfortably in his hospital bed - Atenolol was held by the primary team - Cardiology will sign off #Left hip intertrochanteric fracture #Sepsis #Community-acquired pneumonia #ESRD on dialysis #Anasarca #Acute liver injury #Diabetes #CRISTIANO The rest of the patient's problems will be managed per the patient's primary team. Patient was seen and discussed with my attending physician Dr. Harrington. Tonny Richards DO PGY-1.
[2025-06-18] MEDS: NORTRIPTYLINE HCL 25 MG CAPSULE PO (21:33)
[2025-06-19] VITALS (11 sets, daily range): BP systolic 118–164; BP diastolic 49–84; PULSE 68–86; RESP 12–99; TEMP 36.1–36.6; O2SAT 92–99; BMI 12.0
[2025-06-19] MEDS: HYDROcodone/APAP 5/325 TABLET 1 TAB PO ×2 (02:20→10:15)
[2025-06-19 07:04] LABS: Basophils # (Auto) 0.0 Thou/mm3 (0.0-0.2); Basophils % (Auto) 0 % (0-2.5); Eosinophils # (Auto) 0.2 Thou/mm3 (0.0-0.5); Eosinophils % (Auto) 2 % (0-10); Hematocrit 31.2 % (41.0-53.0); Hemoglobin 10.4 g/dL (13.5-16.0); Immature Granulocytes Auto 0.02 Thou/mm3 (0.00-0.00); Lymphocytes # (Auto) 2.6 Thou/mm3 (1.0-4.8); Lymphocytes % (Auto) 26 % (10-50); Mean Corpuscular HGB Conc 33.3 g/dl (31.0-37.0); Mean Corpuscular Hemoglobin 30.4 pg (25.0-35.0); Mean Corpuscular Volume 91 fL (80-100); Monocytes # (Auto) 0.9 Thou/mm3 (0.0-0.8); Monocytes % (Auto) 9 % (0-12); Neutrophils # (Auto) 6.5 Thou/mm3 (1.8-7.7); Neutrophils % (Auto) 63 % (37-80); Nucleated Red Blood Cell # 0.00 Thou/mm3 (0.00-0.00); Nucleated Red Blood Cell % 0 /100 WBC (0); Platelet Count 206 Thou/mm3 (140-440); RDW Standard Deviation 59.1 fL (35.1-43.9); Red Blood Count 3.42 Miln/mm3 (4.50-5.90); White Blood Count 10.3 Thou/mm3 (3.8-10.6)
[2025-06-19 07:23] LABS: Alanine Aminotransferase 85 U/L (10-49); Albumin, Serum 2.3 gm/dL (3.4-4.8); Albumin/Globulin Ratio 1.0 (1.2-2.2); Alkaline Phosphatase 454 U/L (46-116); Anion Gap 9 (7-16); Aspartate Amino Transferase 68 U/L (0-34); BUN/Creatinine Ratio 6 Ratio (12-20); Bilirubin,Total 0.7 mg/dL (0.3-1.2); Blood Urea Nitrogen 16 mg/dL (9-23); Calcium 8.6 mg/dL (8.3-10.6); Calcium (Corrected) 10.0 mg/dL (8.5-10.1); Carbon Dioxide 26.7 mMol/L (20.0-31.0); Chloride 100 mMol/L (98-107); Creatinine (Component) 2.5 mg/dL (0.6-1.3); Estimated Creatinine Clearance 31.8 mL/min (>60); Globulin 2.3 gm/dL (2.3-3.5); Glucose 158 mg/dL (74-106); Osmolality,Calculated 276 (275-295); Potassium 4.4 mMol/L (3.4-5.1); Sodium 136 mMol/L (136-145); Total Protein 4.6 gm/dL (5.7-8.2); Vancomycin,Random 16.2 mcg/mL; eGFR 28 See Note
[2025-06-19 07:54] LABS: Magnesium 2.2 mg/dL (1.6-2.6); Phosphorous 3.7 mg/dL (2.4-5.1)
--- NOTE | 2025-06-19 08:06 | PD.RESPRO ---
Documentation for date of: 06/19/25 Subjective Subjective Interval history: 06/19/25: NAEO. VSS remain stable with last BP reading of 130/57. Patient was evaluated and examined at bedside. Reports no bowel movement yet, senna/docusate was given. Tolerating diet well. Right surgical dressing has old blood but otherwise bilateral surgical sites are clean, dry and intact. Patient denies any pain at this time. Exam Vital Signs Temp Pulse Resp BP Pulse Ox O2 Del Method O2 Flow Rate 97.2 F 86 17 130/57 L 92 L Room Air 2 06/19/25 04:00 06/19/25 05:21 06/19/25 04:00 06/19/25 05:21 06/19/25 04:00 06/19/25 04:00 06/17/25 16:00 Narrative Exam General: No acute distress, well nourished. Laying comfortably in bed watching TV. Eye: EOMI, normal conjunctiva, no scleral icterus HENT: Normocephalic, atraumatic, normal hearing, moist oral mucosa Neck: Supple, non-tender, no JVD, no lymphadenopathy Lungs: Clear to auscultation bilaterally, non-labored respirations, symmetric chest rise, no use of accessory muscles Heart: Regular rate. Normal S1 and S2, no S3 or S4 appreciated. Normal rate and regular rhythm, no murmurs, rubs gallops, or edema. Peripheral pulses intact bilaterally, capillary refill brisk distally. Right chest dialysis catheter in place. Abdomen: Soft, non-tender, non-distended, normal bowel sounds. No guarding or rebound tenderness. No suprapubic tenderness to palpation noted. Musculoskeletal: Dressing applied to bilateral hips. right hip dressing is moderately soaked with blood. Neurologic: Alert, awake and oriented x3. No focal neuro deficits. Psychiatric: Cooperative, appropriate mood and affect Objective Labs 06/19/25 06:56 06/19/25 06:56 Labs: Laboratory Results - last 24 hr 06/18/25 06/18/25 06/19/25 00:51 08:00 06:56 WBC 11.7 H 10.3 RBC 2.61 L 3.42 L Hgb 8.2 L 10.4 L D Hct 24.3 L 31.2 L MCV 93 91 MCH 31.4 30.4 MCHC 33.7 33.3 RDW Std Deviation 54.5 H 59.1 H Plt Count 193 206 Neut % (Auto) 77 63 Lymph % (Auto) 14 26 [place] % (Auto) 8 9 Eos % (Auto) 0 2 Baso % (Auto) 0 0 Neut # (Auto) 9.0 H 6.5 Lymph # (Auto) 1.7 2.6 [place] # (Auto) 0.9 H 0.9 H Eos # (Auto) 0.0 0.2 Baso # (Auto) 0.0 0.0 Immature Gran # (Auto) 0.06 H 0.02 H Absolute Nucleated RBC 0.00 0.00 Immature Gran % 1 H 0 Nucleated RBC % 0 0 Sodium 138 136 Potassium 4.5 D 4.4 Chloride 103 100 Carbon Dioxide 24.4 26.7 Anion Gap 11 9 BUN 18 16 Creatinine 2.5 H 2.5 H Estim Creat Clear Calc 31.8 L 31.8 L eGFR 28 L 28 L BUN/Creatinine Ratio 7 L 6 L Glucose 134 H 158 H Calculated Osmolality 279 276 Lactic Acid 1.0 Calcium 8.1 L 8.6 Corrected Calcium 9.6 10.0 Phosphorus 5.0 3.7 Magnesium 2.2 2.2 Total Bilirubin 1.0 D 0.7 AST 167 H 68 H ALT 97 H 85 H Alkaline Phosphatase 448 H D 454 H Total Protein 4.1 L 4.6 L Albumin 2.1 L 2.3 L Globulin 2.0 L 2.3 Albumin/Globulin Ratio 1.1 L 1.0 L Random Vancomycin 21.1 16.2 Blood Type B Positive Antibody Screen NEGATIVE Crossmatch See Detail Blood Bank Wristband ID Yes Quality Measures Quality Measures sepsis Possible source: unknown Blood cultures ordered: yes Assessment & Plan Assessment Current Active Medications: Generic Name Dose Route Start Last Admin Trade Name Freq PRN Reason Stop Dose Admin Acetaminophen 650 mg 06/15/25 08:49 Acetaminophen 325 Mg Tablet PO 07/15/25 01:45 Q6H PRN Fever >100.4 or pain 1-3 Hydrocodone Bitart/Acetaminophen 1 tab 06/15/25 02:25 06/19/25 02:20 Hydrocodone/Apap 5/325 Tablet PO 06/20/25 01:45 1 tab Q4HR PRN Administration PAIN SCALE 4-6 (Moderate Atenolol 25 mg 06/16/25 09:00 06/17/25 08:51 Atenolol 25 Mg Tablet PO 07/16/25 08:59 25 mg BID ERIC Administration Dextrose 25 ml 06/15/25 03:01 Dextrose 50%-Water Inj 50 Ml Syringe IV 07/15/25 03:00 Q15MIN PRN BG 50-70 responsive npo pt Dextrose 50 ml 06/15/25 03:01 Dextrose 50%-Water Inj 50 Ml Syringe IV 07/15/25 03:00 Q15MIN PRN BG <50 OR BG <70 & pt unresponsive Docusate Sodium 100 mg 06/15/25 01:46 06/18/25 03:53 Docusate Sod 100 Mg Capsule PO 07/15/25 01:45 100 mg QDAY PRN Administration CONSTIPATION Protocol Glucagon 1 mg 06/15/25 03:01 Glucagon Inj 1 Mg Vial IM Q15MIN PRN BG <70, and no IV access Heparin Sodium (Porcine) 5,000 unit 06/15/25 09:00 06/16/25 11:37 Heparin Sod Inj 5000 Unit/Ml Vial SC 06/29/25 08:59 5,000 unit Q12HR ERIC Administration Heparin Sodium (Porcine) 3,500 unit 06/16/25 08:26 06/16/25 11:08 Heparin Sod Inj 1000 Unit/Ml Vial 10 Ml INDWELLCAT 06/30/25 08:25 3,500 unit X1 PRN Administration DIALYSIS Piperacillin Sod/Tazobactam 100 mls @ 200 mls/hr 06/15/25 21:00 06/18/25 21:21 Sod 4.5 gm/ Sodium Chloride IV 06/22/25 20:59 200 mls/hr Q12HR ERIC Administration Albumin Human 25 gm in 100 mls @ 100 mls/min 06/16/25 08:26 Albuminar-25 Ivpb IV 06/19/25 08:25 PRN PRN dialysis. Vancomycin/Sodium Chloride 100 mls @ 120 mls/hr 06/19/25 10:00 Vancomycin/Ns 500 Mg Ivpb IV 06/19/25 10:49 X1 ONE Insulin Human Lispro 0 unit 06/18/25 07:30 06/18/25 21:28 Insulin Lispro (Admelog) 1 Unit/0.01 Ml Unit SC 07/18/25 07:29 Not Given ACHS ERIC Protocol Midodrine 10 mg 06/18/25 09:00 06/19/25 05:21 Midodrine 5 Mg Tablet PO 07/18/25 08:59 Not Given TID ERIC Morphine Sulfate 2 mg 06/15/25 01:46 06/18/25 14:00 Morphine Sulf Inj 10 Mg/Ml Vial IVP 06/20/25 01:45 2 mg Q2H PRN Administration PAIN SCALE 7-10 (Severe Nortriptyline HCl 25 mg 06/18/25 21:00 06/18/25 21:33 Nortriptyline Hcl 25 Mg Capsule PO 07/18/25 20:59 25 mg HS ERIC Administration Ondansetron HCl 4 mg 06/15/25 01:46 06/18/25 10:54 Ondansetron Inj 2 Mg/Ml Inj 2 Ml IVP 07/15/25 01:45 4 mg Q6H PRN Administration NAUSEA OR VOMITING Protocol Pharmacy Consult 1 each 06/15/25 09:00 Vancomycin Pharmacy To Dose 1 Each Each IV 07/15/25 08:59 QDAY PRN PROTOCOL Sennosides 1 tab 06/15/25 01:46 06/19/25 02:25 Senna Tablet PO 07/15/25 01:45 1 tab QDAY PRN Administration constipation Protocol Vitamin B Complex/Vit C/Folic Acid 1 tab 06/18/25 09:00 06/18/25 11:48 Vitamin B Complex Tablet PO 07/18/25 08:59 1 tab QDAY ERIC Administration Plan 65M with PMHx significant for ESRD (on dialysis T//Sun) with Dr. Chadwick, diabetes, CRISTIANO, BPH, gastric bypass presents from SNF with left hip pain s/p ground-level fall admitted for left hip fracture and possible pneumonia. #Left hip intertrochanteric fracture #Right hip greater trochanter fracture #First coccygeal segment fracture #Right first sacral wing fracture Patient had a ground-level fall without loc. CT imaging confirmed left hip fracture. Head CT negative. Patient initially in pain, relieved with morphine. MRI shows acute intertrochanteric fracture left hip without significant displacement Cleared by cardiology for surgery. Ct of bilateral hips revealed acute comminuted intertrochanteric fracture left hip and acute fracture greater trochanter right hip which does extend into the intertrochanteric region right hip, without significant displacement POD#1: Patient is now S/P bilateral hip cephalomedullary nails. Patient tolerated the procedure well and is in stable condition. Overnight, patient was found to be hypotensive with MAP of 61. 250cc bolus of LR was given and atenolol was hold. Blood pressure did not improve and rapid was called around 2200 for hypotension of 80s/50s and MAP of 60. Patient was asymptomatic. Home midodrine was resumed and albumin 25 was given due to low albumin. Patient was found to have Hgb of 7.8. thus 1x PRBC was given. Blood pressure has improved to 126/60. Lactate improved to 1.0. Plan: - Restart home Midodrine - Held heparin DVT 5000 q12 for low hemoglobin and bleeding. - WBAT - PT/OT - Kermit 5 and morphine 2 as needed for pain - Patient needs to follow up with Dr. Thomas outpatient in 2 weeks #Sepsis #Bibasilar CAP Improved Leukocytosis from 14.8 on admission to 11.7. Patient is afebrile. Lactic acid, Pro-Guero, UA negative. Imaging shows vascular congestion, bibasilar PNA Sofa score 2. Negative rapid flu/covid Plan: - Continue Vancomycin pharmacy dosing (started 06/15) - Continue Zosyn 4.5 g IV q12h (started 06/15) (renally dosed) - Blood cultures pending #ESRD on HD (//Sun) #Anasarca Follows with solutions sales executive Dr. Chadwick. Cr 2.5 (at baseline) Albumin 2.1 Plan: - Completed dialysis today - Renally dose medications - Strict i and o #Chronic sinus tachycardia #Hypotension Improved sinus tachycardia to 77 Cardiology was consulted. Plan: - Restart home Midodrine - Held atenolol 25 mg BID for episode of hypotension #Acute liver injury - resolved #Transaminitis - resolved #Elevated alk phos Elevated alk phos most likely 2/[address] showed cirrhosis, mild ascites, distended gallbladder. In regards to gallbladder, patient is asymptomatic and denies any symptoms with eating. Plan: - CTM with daily CMP - Avoid hepatotoxins #Diabetes Patient takes insulin as needed for significantly elevated blood sugar, which he reports is rare. UA 3+ glucose, 1+ protein A1C 5.4 Plan: - ISS #CRISTIANO Patient has history of obstructive sleep apnea. Plan: - BiPAP as needed at bedtime #Normocytic normochromic anemia Most likely secondary to ESRD Recent drop of Hgb is most likely due to blood loss during surgery. PRBC 1x given. Plan: - Follow H&H - CTM with daily CBC #Hypomagnesemia Plan: - CTM -Replete as needed Dispo: b/l hip fx surgery, CAP management DVT prophylaxis: held Heparin GI prophylaxis: None Bowel reg: Docusate, Senna Diet: Renal Pain mgmt: Tylenol, Kermit 5/325 mg q4h, morphine 2 mg IV q2h Lines: Dialysis port Code status: DNR Plan discussed with Dr. Hanna and Dr. Susan Araujo, DO PGY1
[2025-06-19] MEDS: PIPER/TAZO INJ 4.5 GM in SODIUM CHLORIDE 0.9% (POP) 100 ML IV ×2 (08:09→21:24)
[2025-06-19] MEDS: VITAMIN B COMPLEX TABLET 1 TAB PO (08:09)
--- NOTE | 2025-06-19 09:08 | ESPR_ITS ---
Documentation for date of: 06/19/25 Subjective Subjective Interval history: Mr. Gonzalez is a 65 y/o M with PMHx significant for ESRD (//Sun) with Dr. Chadwick at [facility], diabetes, CRISTIANO, BPH, gastric bypass presents from SNF with left hip pain s/p ground-level fall with witnessed head strike. Pt states that he was standing, and while bending down to lower his pants to use the restroom, he started to fall forward. His nurse was with him and tried to catch him but they both fell to the ground. no LOC. He landed on his Left side. Found to have ?bilateral hip fractures and L femur fracture on xray and CT, MRI machine is down. Interval History 06/15/2025 Nephorology consulted for ESRD on TTS HD. patient seen and examined at bedside. reports that he has been attending HD regularly at [facility]. He states that he has L hip and femur fracture with plan for surgery this sunday, 06/[address] Thomas. On exam, he has BUE edema in the forearms to elbow, with RUE contusions on forearm 2/2 needle sticks not his ground level fall. He has nl work of breathing, tachycardic on exam to 120s. He has catheter on R chest for HD. Cr. 2.3 from 2.1 BUN 15 from 13. He states that he is pending a fistula on the LUE. Plan for HD 06/16 prior to surgery on 06/17. 06/16/2025: Patient seen and examined in HD. (TTS) reports that he lost his L glove that he wears because his hands are offten cold. Pt states that his pain is well controlled and that he has no new concerns. Of note MRI machine is down, query whether pt has bilateral hip fractures. On exam pt has nl work of breathing, pt remains tachycardic to 130s, Cr 2.6 from 2.3, BUN 16 from 15. tolerating HD well. Plan for surgery tomorrow with Dr. Thomas for multiple fractures. 06/18/2025: Patient had 2 rapid responses called for hypotension yesterday (17:10 and 22:47, 06/17). During the 1st RR, patient had their atenolol held and was given a 250 mL LR bolus. During the 2nd RR, patient had their home Midodrine resumed, given IV albumin, and given 1 L LR bolus. Patient seen and examined at bedside; they report feeling generally well today with no new complaints or concerns. Notable labs today include: Hgb 8.2, creatinine bump to 2.5 from 2.2, eGFR drop to 28 from 33, lactic acid drop to 1.0 from 2.6, AST bump to 167 from 28, ALT bump to 97 from 29, alkaline phosphatase bump to 448 from 388. From nephrology's standpoint, patient will be receiving HD today. 06/19/2025: No overnight events. Patient seen and examined at bedside; they report feeling generally well today with no new complaints or concerns. Patient will be discharged today and follow-up for hemodialysis in the outpatient setting. Exam Vital Signs Temp Pulse Resp BP Pulse Ox O2 Del Method O2 Flow Rate 97.6 F 69 20 164/52 H 99 Room Air 2 06/19/25 08:00 06/19/25 08:05 06/19/25 08:05 06/19/25 08:00 06/19/25 08:00 06/19/25 08:00 06/17/25 16:00 Narrative Exam GENERAL: no acute distress, AAO x3, comfortably laying in HD bed HEENT: Head AT/ NC. Mucous membranes moist. PERRL. some small bruises on the face. CARDIOVASCULAR: tachycardic to 130s on monitor . Normal S1/S2, No m/r/g. LLE 1+ edema to mid hernandez, RLE with skin wrinkling, trace edema skin . BUE with edema to elbows, query lymphedema? R HD catheter RESPIRATORY: nl work of breathing . No wheezing, rhonchi, crackles, in upper lung melgar, GASTROINTESTINAL: Abdomen soft, non tender no palpable masses. Bowel sounds present, fem cath. MUSCULOSKELETAL:? No cyanosis, no visible joint swelling. pt wearing glove on RUE, reports having lost L glove, pulses intact in all 4 extrem. LLE flexed and abducted NEUROLOGICAL: CN II-XII grossly intact. No focal deficits. Sensation intact, symmetric. speech is slow. PSYCHIATRIC: Awake and alert, not agitated, affect is flat. SKIN: RUE contusions violacious, on dorsal forearm. Objective Labs 06/19/25 06:56 06/19/25 06:56 Labs: Laboratory Results - last 24 hr 06/18/25 06/19/25 00:51 06:56 WBC 10.3 RBC 3.42 L Hgb 10.4 L D Hct 31.2 L MCV 91 MCH 30.4 MCHC 33.3 RDW Std Deviation 59.1 H Plt Count 206 Neut % (Auto) 63 Lymph % (Auto) 26 Preston % (Auto) 9 Eos % (Auto) 2 Baso % (Auto) 0 Neut # (Auto) 6.5 Lymph # (Auto) 2.6 Preston # (Auto) 0.9 H Eos # (Auto) 0.2 Baso # (Auto) 0.0 Immature Gran # (Auto) 0.02 H Absolute Nucleated RBC 0.00 Immature Gran % 0 Nucleated RBC % 0 Sodium 136 Potassium 4.4 Chloride 100 Carbon Dioxide 26.7 Anion Gap 9 BUN 16 Creatinine 2.5 H Estim Creat Clear Calc 31.8 L eGFR 28 L BUN/Creatinine Ratio 6 L Glucose 158 H Calculated Osmolality 276 Calcium 8.6 Corrected Calcium 10.0 Phosphorus 3.7 Magnesium 2.2 Total Bilirubin 0.7 AST 68 H ALT 85 H Alkaline Phosphatase 454 H Total Protein 4.6 L Albumin 2.3 L Globulin 2.3 Albumin/Globulin Ratio 1.0 L Random Vancomycin 16.2 Crossmatch See Detail Quality Measures Quality Measures sepsis Current suspected stage: ruled out Possible source: unknown Blood cultures ordered: yes Antibiotic ordered: Yes Assessment & Plan Assessment Current Active Medications: Generic Name Dose Route Start Last Admin Trade Name Freq PRN Reason Stop Dose Admin Acetaminophen 650 mg 06/15/25 08:49 Acetaminophen 325 Mg Tablet PO 07/15/25 01:45 Q6H PRN Fever >100.4 or pain 1-3 Hydrocodone Bitart/Acetaminophen 1 tab 06/15/25 02:25 06/19/25 02:20 Hydrocodone/Apap 5/325 Tablet PO 06/20/25 01:45 1 tab Q4HR PRN Administration PAIN SCALE 4-6 (Moderate Atenolol 25 mg 06/16/25 09:00 06/17/25 08:51 Atenolol 25 Mg Tablet PO 07/16/25 08:59 25 mg BID ERIC Administration Dextrose 25 ml 06/15/25 03:01 Dextrose 50%-Water Inj 50 Ml Syringe IV 07/15/25 03:00 Q15MIN PRN BG 50-70 responsive npo pt Dextrose 50 ml 06/15/25 03:01 Dextrose 50%-Water Inj 50 Ml Syringe IV 07/15/25 03:00 Q15MIN PRN BG <50 OR BG <70 & pt unresponsive Docusate Sodium 100 mg 06/15/25 01:46 06/18/25 03:53 Docusate Sod 100 Mg Capsule PO 07/15/25 01:45 100 mg QDAY PRN Administration CONSTIPATION Protocol Glucagon 1 mg 06/15/25 03:01 Glucagon Inj 1 Mg Vial IM Q15MIN PRN BG <70, and no IV access Heparin Sodium (Porcine) 5,000 unit 06/15/25 09:00 06/16/25 11:37 Heparin Sod Inj 5000 Unit/Ml Vial SC 06/29/25 08:59 5,000 unit Q12HR ERIC Administration Heparin Sodium (Porcine) 3,500 unit 06/16/25 08:26 06/16/25 11:08 Heparin Sod Inj 1000 Unit/Ml Vial 10 Ml INDWELLCAT 06/30/25 08:25 3,500 unit X1 PRN Administration DIALYSIS Piperacillin Sod/Tazobactam 100 mls @ 200 mls/hr 06/15/25 21:00 06/19/25 08:09 Sod 4.5 gm/ Sodium Chloride IV 06/22/25 20:59 200 mls/hr Q12HR ERIC Administration Vancomycin/Sodium Chloride 100 mls @ 120 mls/hr 06/19/25 10:00 Vancomycin/Ns 500 Mg Ivpb IV 06/19/25 10:49 X1 ONE Insulin Human Lispro 0 unit 06/18/25 07:30 06/19/25 08:19 Insulin Lispro (Admelog) 1 Unit/0.01 Ml Unit SC 07/18/25 07:29 Not Given ACHS [facility] Protocol Midodrine 10 mg 06/18/25 09:00 06/19/25 05:21 Midodrine 5 Mg Tablet PO 07/18/25 08:59 Not Given TID [facility] Morphine Sulfate 2 mg 06/15/25 01:46 06/18/25 14:00 Morphine Sulf Inj 10 Mg/Ml Vial IVP 06/20/25 01:45 2 mg Q2H PRN Administration PAIN SCALE 7-10 (Severe Nortriptyline HCl 25 mg 06/18/25 21:00 06/18/25 21:33 Nortriptyline Hcl 25 Mg Capsule PO 07/18/25 20:59 25 mg HS [facility]IRC Administration Ondansetron HCl 4 mg 06/15/25 01:46 06/18/25 10:54 Ondansetron Inj 2 Mg/Ml Inj 2 Ml IVP 07/15/25 01:45 4 mg Q6H PRN Administration NAUSEA OR VOMITING Protocol Pharmacy Consult 1 each 06/15/25 09:00 Vancomycin Pharmacy To Dose 1 Each Each IV 07/15/25 08:59 QDAY PRN PROTOCOL Sennosides 1 tab 06/15/25 01:46 06/19/25 02:25 Senna Tablet PO 07/15/25 01:45 1 tab QDAY PRN Administration constipation Protocol Vitamin B Complex/Vit C/Folic Acid 1 tab 06/18/25 09:00 06/19/25 08:09 Vitamin B Complex Tablet PO 07/18/25 08:59 1 tab QDAY ERIC Administration Plan 65 y/o M with PMHx significant for ESRD (T//Sun) with Dr. Chadwick at [facility], hx of R renal kidney removal, well controlled T2DM , CRISTIANO, BPH, gastric bypass presents from SNF with left hip pain s/p ground-level fall admitted for left hip fracture and possible pneumonia. s/p 06/[address] Thomas. Patient will be discharged today and follow-up for hemodialysis in the outpatient setting. #ESRD on HD (T//Sun) Patient has ESRD as stated. Follows with welcome hostess Dr. Chadwick at [facility]. Patient has significant anasarca, BUE edema and LLE 1+ edema with RLE trace edema. Albumin 2.8. On 06/15 Cr 2.3 from 2.1, BUN 15 from 13 On 06/16 Cr 2.6 from 2.3, BUN 16 from 15 On 06/18 Cr 2.5 from 2.2, BUN 18 from 14 HD: 06/16 Plan: - Discharge and follow-up for HD in outpatient setting - Renally dose medications - strict i and o #Normocytic normochromic anemia - likely 2/2 ESRD #query R hip fracture? #Left hip intertrochanteric fracture #Right hip greater trochanter fracture #First coccygeal segment fracture #Right first sacral wing fracture MRI machine is down, unable to obtain, - fractures seen on xray and CT. - plan for Surgery with Dr. Thomas 06/17 #T2DM on insulin PRN- well controlled. Patient history as stated. Patient takes insulin as needed for significantly elevated blood sugar, which he reports is rare. A1c 5.7% as of 12/09/24. AM glucose 133 UA 3+ glucose, 1+ protein -Management as per primary team #Sepsis 2/2 CAP with end organ damage given transaminitis #Bibasilar CAP- on vanc and zosyn - renally dose vanc #Acute liver injury #CRISTIANO #electrolyte abnormalities- replete as indicated #sinus tachycardia to 130s - query 2/2 pain or dehydration, or CAP infection. - cards consult for cardiac clearance prior to surgery- CLEARED -started atenolol 25 BID #query HTN - Management as per primary team. Plan discussed with nephrology attending Dr. Edwin Alex, DO PGY-1 Internal Medicine Attending Provider Attestation/Addendum Patient seen and examined with resident physician Dr. Alex. Note reviewed, agree with findings and recommendations. Status post ground-level fall with a left and rt hip fracture. s/p surgery with Dr. Thomas. Lost significant amount of weight. I know him from my CKD clinic in the past. Patient will be going back to rehab. Next dialysis will be tomorrow at outpatient setting.
--- NOTE | 2025-06-19 09:45 | PC.SS ---
Patient has not had a bowl movement, SS notified Dr. Hanna, he informed SS that they would order medication.
[2025-06-19] MEDS: VANCOMYCIN/NS 500 MG IVPB 100 ML 120 MG IV (10:15)
[2025-06-19] MEDS: DOCUSATE SOD 100 MG CAPSULE PO (10:15)
[2025-06-19] MEDS: SENNA/DOCUSATE SOD 1 TAB TABLET PO (10:23)
[2025-06-19] MEDS: POLYETHYLENE GLYCOL 17 GM PACKET PO (11:12)
[2025-06-19] MEDS: MIDODRINE 5 MG TABLET 10 MG PO (13:51)
--- NOTE | 2025-06-19 15:06 | ESDS_ITS ---
<Statement entered by Mikayla Davis DO - 06/20/25 09:23> I, Mikayla Davis DO, attest that I was physically present for the lerma portions of the service and evaluated the patient with the resident and I reviewed and discussed the case with the resident and agree with the resident's findings and plans of care as documented above <Statement entered by Alex Corley MD - 06/19/25 22:01> Patient was examined and case was reviewed with team including attending physician. Note reviewed, I agree with most of its contents and agree with the patient's care as documented by Dr. Van Corley MD PGY-2 Planned Discharge Date 06/19/25 DS: Providers Provider Date of admission: 06/15/25 01:40 Primary care physician: Physician No Primary/Family Admitting Provider: Dmitry Alexis MD Attending Provider on Admission: Mikayla Davis DO Consults: 06/15/25 01:48 Consult to Orthopedic Routine Comment: L hip fracture Consulting Provider: Ruddy Thomas 06/15/25 01:55 Consult to Nephrology Routine Comment: Hemodialysis Consulting Provider: Lion Pineda 06/15/25 02:05 Referral Registered Dietitian Routine Comment: 06/15/25 02:36 Referral Wound Care Routine Comment: Weeping wounds bilateral upper extremities 06/15/25 08:28 Consult to Cardiology Stat Comment: Needs cardiac clearance for surgery Consulting Provider: Martin Harrington 06/17/25 09:27 Referral Physical Therapy Urgent Comment: Physician Instructions: Referral Physical Therapy Urgent Comment: Physician Instructions: Attending Provider on DC: Dr. Davis Discharging Provider: Resident Winifred Anticipated date of discharge: 06/19/25 DS: Diagnosis Problem List Completed Was Problem List Reviewed/Reconciled?: Yes Hospital Course Hospital Course Hospital course: Dmitry Gonzalez is a 65M with PMHx significant for ESRD (on dialysis T//Sun) with Dr. Chadwick, diabetes, CRISTIANO, BPH, gastric bypass presents from SNF with left hip pain s/p ground-level fall admitted for left hip fracture and possible pneumonia. Patient had a ground-level fall without loc. CTAP imaging confirmed left hip fracture. CT showed cirrhosis, mild ascites, distended gallbladder. In regards to gallbladder, patient is asymptomatic and denies any symptoms with eating. Head CT negative. Patient initially in pain, relieved with morphine. Patient initially was septic with leukocytosis of 14.8 which improved and remained afebrile. Imaging shows vascular congestion, bibasilar PNA, Sofa score 2, with negative rapid flu/covid which was treated with Vancomycin and Zosyn. MRI of bilateral hips were ordered which showed acute intertrochanteric fracture left hip without significant displacement. Per radiology recommendation, CT of bilateral hips were ordered which showed acute comminuted intertrochanteric fracture left hip and acute fracture greater trochanter right hip which does extend into the intertrochanteric region right hip, without significant displacement. Cardiology was consulted who cleared patient for surgery. They were also consulted for sinus tachycardia that was noted which prompted starting Atenolol. Orthopedic surgery Dr Thomas was consulted who then performed bilateral hip cephalomedullary nails for the repair of above fractures. Patient tolerated the procedure well and returned to the floor in stable condition. The same day patient was noted to be hypotensive with MAP of 61. 250cc bolus of LR was given and atenolol was hold. Blood pressure did not improve and rapid was called around 2200 for hypotension of 80s/50s and MAP of 60. Patient was asymptomatic. Home midodrine was resumed and albumin 25 was given due to low albumin. Patient was found to have Hgb of 7.8. thus 1x PRBC was given. Blood pressure has improved to 126/60. Hgb also improved to 10.4. Lactate initially raised to 4.5 but down trended to 1.0. On post-op day 2 patient is in stable condition and received hemodialysis. Patient pain is controlled and tolerating diet. Vital signs within normal limits. Patient is cleared from ortho standpoint for discharge. All other medical problems were managed accordingly while in the hospital. Patient needs to follow up with Dr. Thomas outpatient in 2 weeks Patient will be prescribed with Augmentin to be taken for 4 more days for pneumonia and will prescribed pain meds for pain management. #Left hip intertrochanteric fracture #Right hip greater trochanter fracture #First coccygeal segment fracture #Right first sacral wing fracture #S/p ground level fall #Sepsis #Bibasilar CAP #ESRD on HD (//Sun) #Anasarca #Chronic sinus tachycardia #Hypotension #Acute liver injury - resolved #Transaminitis - resolved #Elevated alk phos #Diabetes #CRISTIANO #Normocytic normochromic anemia #Hypomagnesemia Follow-up with your primary care physician within 1 week of discharge Follow-up with orthopedic surgery for follow-up of your bilateral hip replacements. You have been prescribed aspirin 81 mg twice a day for DVT prophylaxis. Please take all your medications as prescribed. You have been prescribed Augmentin which is an antibiotic for 4 more days for treatment of pneumonia Should your symptoms recur or worsen patient is instructed to return to the ER. Plan discussed with Dr. Hanna and Dr. Susan Araujo, DO PGY1 Status at Discharge Functional status at discharge: independent ambulation Overall status at discharge: patient is back to baseline Time Spent with Patient Time attestation: Total time spent providing and/or coordinating discharge services: Time spent: Greater than 30 minutes Exam Vital Signs Temp Pulse Resp BP Pulse Ox O2 Del Method O2 Flow Rate 97.4 F 68 18 151/84 H 94 L Room Air 2 06/19/25 12:00 06/19/25 12:06/19/25 12:06/19/25 12:06/19/25 12:06/19/25 12:06/17/25 16:00 Narrative Exam General: No acute distress, well nourished. Laying comfortably in bed watching TV. Eye: EOMI, normal conjunctiva, no scleral icterus HENT: Normocephalic, atraumatic, normal hearing, moist oral mucosa Neck: Supple, non-tender, no JVD, no lymphadenopathy Lungs: Clear to auscultation bilaterally, non-labored respirations, symmetric chest rise, no use of accessory muscles Heart: Regular rate. Normal S1 and S2, no S3 or S4 appreciated. Normal rate and regular rhythm, no murmurs, rubs gallops, or edema. Peripheral pulses intact bilaterally, capillary refill brisk distally. Right chest dialysis catheter in place. Abdomen: Soft, non-tender, non-distended, normal bowel sounds. No guarding or rebound tenderness. No suprapubic tenderness to palpation noted. Musculoskeletal: Dressing applied to bilateral hips. Minimal blood noted on right hip dressing. Hips nontender to palpation. Neurologic: Alert, awake and oriented x3. No focal neuro deficits. Psychiatric: Cooperative, appropriate mood and flat affect Discharge Plan Plan Patient Disposition: HOME (Self Care) Patient condition on transfer: Stable Care Plan Goals: Follow-up with your primary care physician within 1 week of discharge Follow-up with orthopedic surgery for follow-up of your bilateral hip replacements. You have been prescribed aspirin 81 mg twice a day for DVT prophylaxis. Please take all your medications as prescribed. You have been prescribed Augmentin which is an antibiotic for 4 more days for treatment of pneumonia Should your symptoms recur or worsen patient is instructed to return to the ER. Prescriptions/Referrals Prescriptions/Med Rec: New aspirin 81 mg tablet,delayed release (DR/EC) 81 mg PO BID Qty: 60 0RF amoxicillin-pot clavulanate 875-125 mg tablet 1 tab PO BID 4 Days Qty: 8 0RF hydrocodone-acetaminophen 5-325 mg tablet 1 tab PO Q6H MDD 3 PRN (Reason: pain) Qty: 14 0RF Continued nortriptyline 25 mg capsule 25 mg PO HS cholecalciferol (vitamin D3) [Vitamin D3] 2,000 UNIT capsule 2,000 unit PO QDAY Qty: 0 vitamin B complex Tablet 1 tab PO QDAY sucralfate 100 mg/mL suspension 10 ml PO Q6H Rx Instructions: FOR PEPTIC ULCER hydroxyzine HCl 10 mg tablet 10 mg PO QPM PRN (Reason: itching) Patient Comments: TAKE 1 TABLET BY MOUTH NIGHTLY midodrine 10 mg Tablet 10 mg PO TID Rx Instructions: HOLD IF SBP>120 insulin aspart U-100 [Novolog FlexPen U-100 Insulin] 100 unit/mL (3 mL) insulin pen 5 unit SUBCUT AC Patient Comments: INJECT 5 UNIT SUBCUTANEOUSLY 3 TIMES A DAY BEFORE MEALS HOLD IF BS<150 alum-mag hydroxide-simeth [Maalox Advanced] 200-200-20 mg/5 mL suspension 10 ml PO QID Qty: 3000 0RF Rx Instructions: administer between meals and at bedtime Discontinued pantoprazole [Protonix] 40 mg tablet,delayed release (DR/EC) 40 mg PO BID Qty: 30 0RF Referrals: No Primary/Family,Physician [Primary Care Provider] - Patient/Caregiver Discharge Instructions Print Language: Finnish Stand Alone Forms: [facility] Award Info., Patient Portal Info Letter Discharge Order Discharge Orders: Discharge (Routine); Ordered 06/19/25 Ordered By: Alex Corley Quality Discharge Quality Measures VTE prophylaxis
--- NOTE | 2025-06-19 17:22 | PC.SS ---
SS followed up with patients nurse in regard to patient, Nurse informed SS that patient had not had bowl movement at the time, SS notified Dr. Davis.
[2025-06-19] MEDS: GLYCERIN, ADULT 1 EA SUPP 1 EACH PR (17:34)
[2025-06-20] VITALS (23 sets, daily range): BP systolic 80–168; BP diastolic 31–86; PULSE 74–109; RESP 12–98; TEMP 36.2–37.1; O2SAT 94–100
--- NOTE | 2025-06-20 | XR_ITS ---
Examination: Abdomen AP single view Technique: AP portable supine abdomen, single view Exam date and time: June 20, 2025, 11:59 AM Indications: Diffuse abdominal pain this week. Findings: Mild to moderate air and stool throughout the colon. No obstruction Postop reduction internal fixation bilateral hip fractures No free air Impression: Nonobstructive bowel gas pattern.
--- NOTE | 2025-06-20 02:21 | PC.NURSE ---
Pt complaining of pain 07/15, Dr. Gonsalves was made aware, MD will put orders for pain med.
[2025-06-20] MEDS: HYDROMORPHONE HCL 2 MG TABLET 1 MG PO (02:40)
[2025-06-20] MEDS: ACETAMINOPHEN 325 MG TABLET 650 MG PO (07:44)
--- NOTE | 2025-06-20 09:26 | PC.NURSE ---
Pt C/O SOB, O2 started 3L NC, unable to chck O2 sat's, cold, cold hands/fingers, wants to come OFF, UF OFF, 100 ml JOAQUINA, Rocio-RN over and talked to patient--agreed to try and run -see if feels better--
--- NOTE | 2025-06-20 09:50 | PC.SS ---
Addendum entered by Kenia Perez 06/20/25 14:24: Pt DC held due to new onset abd pain, pending imaging. SS updated [facility], with [facility]. Original Note: SS was informed pt has had a BM and is ready for DC back to [facility]. SS contacted [facility] who stated they are ready to accept pt back. SS attempted to set up transport via [employer] per Rebecca, [employer] Rep pt is inactive and does not have coverage. SS contacted pt sister, Maisha to inquire on transport for pt. Maisha stated they are unable to provide transport for pt and do npt have the funds needed to pay for transport. [facility] will be granted. SS called [facility] to initiate transport, SS spoke to Ysabel who did intake and stated she will call SS back if they have gurney transport for today. If [facility] unable, SS will utilize [facility] with [facility].
--- NOTE | 2025-06-20 10:55 | PC.NURSE ---
Pt requested OFF after 2-Hours, states cannot take anymore. Dr Pineda on site, end Tx. Dr nunez in [facility], Pt C/O abd pain, central area most pain, less going out .Report To patients nurse
[2025-06-20] MEDS: VANCOMYCIN/NS 500 MG IVPB 100 ML 120 MG IV (12:48)
--- NOTE | 2025-06-20 12:52 | PC.NURSE ---
Per pharmacy ok to give vanco without trough, patient refused morning labs.
--- NOTE | 2025-06-20 13:17 | ESPR_ITS ---
<Statement entered by Alex Corley MD - 06/20/25 13:29> Patient was examined and case was reviewed with team including attending physician. Note reviewed, I agree with most of its contents and agree with the patient's care as documented by Dr. Araujo Patient seen and evaluated at the dialysis unit. Is actively complaining of diffuse abdominal pain. KUB was ordered if inconclusive we will pursue a CT scan of the abdomen pelvis. Aspirin 81mg BID started for DVT prophylaxis as per Orthopedic surgery reccs. Currently on IV Abx therapy for pneumonia, will transition to PO route at the time of discahrge, likely in next 24-48 hours. Case discussed with my attending Dr. Susan Corley MD PGY-2 Disclaimer: Despite multiple revisions, due to the dictation software being used, the document bellow may not be free of grammatical errors including phonetic/typographic errors. However, this does not deter from our commitment to providing health care in the patient's best interest in mind. Documentation for date of: 06/20/25 Subjective Subjective Interval history: 06/20/25: ARRONON. VSS. Patient reported diffuse abdominal pain while receiving dialysis this morning. KUB was odered. Patient has had bowel movement earlier. Exam Vital Signs Temp Pulse Resp BP Pulse Ox O2 Del Method O2 Flow Rate 97.1 F 99 16 80/67 L 97 Nasal Cannula 3 06/20/25 12:00 06/20/25 12:00 06/20/25 12:00 06/20/25 12:00 06/20/25 12:00 06/20/25 12:06/20/25 12:00 Narrative Exam General: In distress secondayr to abdominal pain, well nourished. Laying comfortably in bed watching TV. Eye: EOMI, normal conjunctiva, no scleral icterus HENT: Normocephalic, atraumatic, normal hearing, moist oral mucosa Neck: Supple, non-tender, no JVD, no lymphadenopathy Lungs: Clear to auscultation bilaterally, non-labored respirations, symmetric chest rise, no use of accessory muscles Heart: Regular rate. Normal S1 and S2, no S3 or S4 appreciated. Normal rate and regular rhythm, no murmurs, rubs gallops, or edema. Peripheral pulses intact bilaterally, capillary refill brisk distally. Right chest dialysis catheter in place. Abdomen: Soft, with tenderness to palpation throughout mainly in LLQ, non- distended, hypoactive bowel sounds. Musculoskeletal: Dressing applied to bilateral hips. right hip dressing is mildly soaked with blood. Neurologic: Alert, awake and oriented x3. No focal neuro deficits. Psychiatric: Cooperative, appropriate mood and affect Objective Labs 06/20/25 18:57 06/20/25 18:57 Quality Measures Quality Measures VTE prophylaxis Assessment & Plan Assessment Current Active Medications: Generic Name Dose Route Start Last Admin Trade Name Freq PRN Reason Stop Dose Admin Acetaminophen 650 mg 06/15/25 08:49 06/20/25 07:44 Acetaminophen 325 Mg Tablet PO 07/15/25 01:45 650 mg Q6H PRN Administration Fever >100.4 or pain 1-3 Atenolol 25 mg 06/16/25 09:00 06/17/25 08:51 Atenolol 25 Mg Tablet PO 07/16/25 08:59 25 mg BID ERIC Administration Dextrose 25 ml 06/15/25 03:01 Dextrose 50%-Water Inj 50 Ml Syringe IV 07/15/25 03:00 Q15MIN PRN BG 50-70 responsive npo pt Dextrose 50 ml 06/15/25 03:01 Dextrose 50%-Water Inj 50 Ml Syringe IV 07/15/25 03:00 Q15MIN PRN BG <50 OR BG <70 & pt unresponsive Docusate Sodium 100 mg 06/20/25 10:45 06/20/25 11:18 Docusate Sod 100 Mg Capsule PO 07/20/25 10:44 Not Given QDAY [facility] Protocol Glucagon 1 mg 06/15/25 03:01 Glucagon Inj 1 Mg Vial IM Q15MIN PRN BG <70, and no IV access Heparin Sodium (Porcine) 5,000 unit 06/15/25 09:00 06/20/25 11:04 Heparin Sod Inj 5000 Unit/Ml Vial SC 06/29/25 08:59 Not Given Q12HR [facility] Heparin Sodium (Porcine) 3,500 unit 06/16/25 08:26 06/16/25 11:08 Heparin Sod Inj 1000 Unit/Ml Vial 10 Ml INDWELLCAT 06/30/25 08:25 3,500 unit X1 PRN Administration DIALYSIS Piperacillin Sod/Tazobactam 100 mls @ 200 mls/hr 06/15/25 21:00 06/20/25 10:18 Sod 4.5 gm/ Sodium Chloride IV 06/22/25 20:59 Not Given Q12HR ERIC Insulin Human Lispro 0 unit 06/18/25 07:30 06/20/25 11:18 Insulin Lispro (Admelog) 1 Unit/0.01 Ml Unit SC 07/18/25 07:29 Not Given ACHS [facility] Protocol Midodrine 10 mg 06/18/25 09:00 06/20/25 05:29 Midodrine 5 Mg Tablet PO 07/18/25 08:59 Not Given TID ERIC Nortriptyline HCl 25 mg 06/18/25 21:00 06/19/25 21:24 Nortriptyline Hcl 25 Mg Capsule PO 07/18/25 20:59 Not Given HS ERIC Ondansetron HCl 4 mg 06/15/25 01:46 06/18/25 10:54 Ondansetron Inj 2 Mg/Ml Inj 2 Ml IVP 07/15/25 01:45 4 mg Q6H PRN Administration NAUSEA OR VOMITING Protocol Pharmacy Consult 1 each 06/15/25 09:00 Vancomycin Pharmacy To Dose 1 Each Each IV 07/15/25 08:59 QDAY PRN PROTOCOL Sennosides 1 tab 06/20/25 10:30 06/20/25 11:18 Senna Tablet PO 07/20/25 10:29 Not Given QDAY [facility] Protocol Vitamin B Complex/Vit C/Folic Acid 1 tab 06/18/25 09:00 06/20/25 10:18 Vitamin B Complex Tablet PO 07/18/25 08:59 Not Given QDAY [facility] Plan 65M with PMHx significant for ESRD (on dialysis T//Sun) with Dr. Chadwick, diabetes, CRISTIANO, BPH, gastric bypass presents from SNF with left hip pain s/p ground-level fall admitted for left hip fracture and possible pneumonia. #Left hip intertrochanteric fracture #Right hip greater trochanter fracture #First coccygeal segment fracture #Right first sacral wing fracture Patient had a ground-level fall without loc. CT imaging confirmed left hip fracture. Head CT negative. Patient initially in pain, relieved with morphine. MRI shows acute intertrochanteric fracture left hip without significant displacement Cleared by cardiology for surgery. Ct of bilateral hips revealed acute comminuted intertrochanteric fracture left hip and acute fracture greater trochanter right hip which does extend into the intertrochanteric region right hip, without significant displacement POD#1: Patient is now S/P bilateral hip cephalomedullary nails. Patient tolerated the procedure well and is in stable condition. Overnight, patient was found to be hypotensive with MAP of 61. 250cc bolus of LR was given and atenolol was hold. Blood pressure did not improve and rapid was called around 2200 for hypotension of 80s/50s and MAP of 60. Patient was asymptomatic. Home midodrine was resumed and albumin 25 was given due to low albumin. Patient was found to have Hgb of 7.8. thus 1x PRBC was given. Blood pressure has improved to 126/60. Lactate improved to 1.0. Plan: - Patient is ready to be discharged from orthopedic standpoint - Restart home Midodrine - ASA 81 BID - WBAT - PT/OT - Held [place] and morphine - Patient needs to follow up with Dr. Thomas outpatient in 2 weeks #Abdominal pain While receiving dialysis patient reported diffuse abdominal pain with tenderness to palpation on exam and hypoactive bowel sounds. Patient has had bowel movements earlier. KUB was ordered which showed Nonobstructive bowel gas pattern. -Ordered warm water enema #Sepsis #Bibasilar CAP Improved Leukocytosis from 14.8 on admission to 11.7. Patient is afebrile. Lactic acid, Pro-Guero, UA negative. Imaging shows vascular congestion, bibasilar PNA Sofa score 2. 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 Chadwick. Cr 2.5 (at baseline) Albumin 2.1 Plan: - Completed dialysis today - Renally dose medications - Strict i and o #Chronic sinus tachycardia #Hypotension Improved sinus tachycardia to 77 Cardiology was consulted. Plan: - Restart home Midodrine - Held atenolol 25 mg BID for episode of hypotension #Acute liver injury - resolved #Transaminitis - resolved #Elevated alk phos Elevated alk phos most likely 2/[address] showed cirrhosis, mild ascites, distended gallbladder. In regards to gallbladder, patient is asymptomatic and denies any symptoms with eating. Plan: - CTM - Avoid hepatotoxins #Diabetes Patient takes insulin as needed for significantly elevated blood sugar, which he reports is rare. UA 3+ glucose, 1+ protein A1C 5.4 Plan: - ISS #CRISTIANO Patient has history of obstructive sleep apnea. Plan: - BiPAP as needed at bedtime #Normocytic normochromic anemia Most likely secondary to ESRD Recent drop of Hgb is most likely due to blood loss during surgery. PRBC 1x given. Plan: - Follow H&H - CTM with daily CBC #Hypomagnesemia Plan: - CTM -Replete as needed Dispo: b/l hip fx surgery, CAP management DVT prophylaxis: ASA 81 BID GI prophylaxis: None Bowel reg: Docusate, Senna Diet: Renal Pain mgmt: Tylenol Lines: Dialysis port Code status: DNR Plan discussed with Dr. Hanna and Dr. Susan Araujo DO PGY1 Attending Provider Attestation/Addendum Mikayla Chisholm DO, attest that I was physically present for the lerma portions of the service and evaluated the patient with the resident and I reviewed and discussed the case with the resident and agree with the resident's findings and plans of care as documented above Patient seen and evaluated a.m. He states that he is not doing well if he has a lot of abdominal pain. Patient has not had an therapy. Will give bowel regimen. KUB was done showing nonobstructive bowel gas pattern. Abdomen is soft on palpation mild tenderness elicited in left lower quadrant. Suspect that patient is in pain secondary to constipation. Will hold off on narcotics at this time. Anticipate discharge also next 24 hours for patient will to have a bowel movement.
--- NOTE | 2025-06-20 14:08 | ESPR_ITS ---
Documentation for date of: 06/20/25 Subjective Subjective Interval history: Mr. Gonzalez is a 65 y/o M with PMHx significant for ESRD (//Sun) with Dr. Chadwick at [facility], diabetes, CRISTIANO, BPH, gastric bypass presents from SNF with left hip pain s/p ground-level fall with witnessed head strike. Pt states that he was standing, and while bending down to lower his pants to use the restroom, he started to fall forward. His nurse was with him and tried to catch him but they both fell to the ground. no LOC. He landed on his Left side. Found to have ?bilateral hip fractures and L femur fracture on xray and CT, MRI machine is down. Interval History 06/15/2025 Nephorology consulted for ESRD on TTS HD. patient seen and examined at bedside. reports that he has been attending HD regularly at [facility]. He states that he has L hip and femur fracture with plan for surgery this sunday, 06/[address] Thomas. On exam, he has BUE edema in the forearms to elbow, with RUE contusions on forearm 2/2 needle sticks not his ground level fall. He has nl work of breathing, tachycardic on exam to 120s. He has catheter on R chest for HD. Cr. 2.3 from 2.1 BUN 15 from 13. He states that he is pending a fistula on the LUE. Plan for HD 06/16 prior to surgery on 06/17. 06/16/2025: Patient seen and examined in HD. (TTS) reports that he lost his L glove that he wears because his hands are offten cold. Pt states that his pain is well controlled and that he has no new concerns. Of note MRI machine is down, query whether pt has bilateral hip fractures. On exam pt has nl work of breathing, pt remains tachycardic to 130s, Cr 2.6 from 2.3, BUN 16 from 15. tolerating HD well. Plan for surgery tomorrow with Dr. Thomas for multiple fractures. 06/18/2025: Patient had 2 rapid responses called for hypotension yesterday (17:10 and 22:47, 06/17). During the 1st RR, patient had their atenolol held and was given a 250 mL LR bolus. During the 2nd RR, patient had their home Midodrine resumed, given IV albumin, and given 1 L LR bolus. Patient seen and examined at bedside; they report feeling generally well today with no new complaints or concerns. Notable labs today include: Hgb 8.2, creatinine bump to 2.5 from 2.2, eGFR drop to 28 from 33, lactic acid drop to 1.0 from 2.6, AST bump to 167 from 28, ALT bump to 97 from 29, alkaline phosphatase bump to 448 from 388. From nephrology's standpoint, patient will be receiving HD today. 06/19/2025: No overnight events. Patient seen and examined at bedside; they report feeling generally well today with no new complaints or concerns. Patient will be discharged today and follow-up for hemodialysis in the outpatient setting. 06/20/2025: No overnight events. Patient seen and examined at bedside while on hemodialysis; he complains of new generalized abdominal pain and a marked pain response is elicited upon palpation of any abdominal quadrant. There is also an absence of bowel sounds on abdominal auscultation. No labs were drawn for the patient today which this brief writer assumes is due to the fact that he was planned to be discharged yesterday. The primary care team has ordered an abdominal X- ray which showed a nonobstructive bowel gas pattern. From nephrology's standpoint, he will be receiving urgent hemodialysis today (ongoing at time of interview). Exam Vital Signs Temp Pulse Resp BP Pulse Ox O2 Del Method O2 Flow Rate 97.1 F 99 16 80/67 L 97 Nasal Cannula 3 06/20/25 12:06/20/25 12:06/20/25 12:06/20/25 12:06/20/25 12:06/20/25 12:06/20/25 12:00 Narrative Exam GENERAL: Somewhat distressed, A&O x3, laying in HD bed HEENT: Head AT/ NC. Mucous membranes moist. PERRL. some small bruises on the face. CARDIOVASCULAR: tachycardic to 100s. Normal S1/S2, No m/r/g. LLE 1+ edema to mid hernandez, RLE with skin wrinkling, trace edema skin . BUE with edema to elbows, query lymphedema? R HD catheter RESPIRATORY: nl work of breathing . No wheezing, rhonchi, crackles, in upper lung melgar, GASTROINTESTINAL: New generalized abdominal tenderness and decreased/absent bowel sounds.Abdomen soft, no palpable masses. MUSCULOSKELETAL:? No cyanosis, no visible joint swelling. pt wearing glove on RUE, reports having lost L glove, pulses intact in all 4 extrem. LLE flexed and abducted NEUROLOGICAL: CN II-XII grossly intact. No focal deficits. Sensation intact, symmetric. speech is slow. PSYCHIATRIC: Awake and alert, not agitated, affect is flat. SKIN: RUE contusions violacious, on dorsal forearm. Objective Labs 06/20/25 18:57 06/20/25 18:57 Quality Measures Quality Measures VTE prophylaxis Assessment & Plan Assessment Current Active Medications: Generic Name Dose Route Start Last Admin Trade Name Freq PRN Reason Stop Dose Admin Acetaminophen 650 mg 06/15/25 08:49 06/20/25 07:44 Acetaminophen 325 Mg Tablet PO 07/15/25 01:45 650 mg Q6H PRN Administration Fever >100.4 or pain 1-3 Aspirin 81 mg 06/20/25 21:00 Aspirin Ec 81 Mg Tabec PO 07/20/25 20:59 BID [facility] Atenolol 25 mg 06/16/25 09:00 06/17/25 08:51 Atenolol 25 Mg Tablet PO 07/16/25 08:59 25 mg BID ERIC Administration Dextrose 25 ml 06/15/25 03:01 Dextrose 50%-Water Inj 50 Ml Syringe IV 07/15/25 03:00 Q15MIN PRN BG 50-70 responsive npo pt Dextrose 50 ml 06/15/25 03:01 Dextrose 50%-Water Inj 50 Ml Syringe IV 07/15/25 03:00 Q15MIN PRN BG <50 OR BG <70 & pt unresponsive Docusate Sodium 100 mg 06/20/25 10:45 06/20/25 11:18 Docusate Sod 100 Mg Capsule PO 07/20/25 10:44 Not Given QDAY [facility] Protocol Glucagon 1 mg 06/15/25 03:01 Glucagon Inj 1 Mg Vial IM Q15MIN PRN BG <70, and no IV access Heparin Sodium (Porcine) 5,000 unit 06/15/25 09:00 06/20/25 11:04 Heparin Sod Inj 5000 Unit/Ml Vial SC 06/29/25 08:59 Not Given Q12HR [facility] Heparin Sodium (Porcine) 3,500 unit 06/16/25 08:26 06/16/25 11:08 Heparin Sod Inj 1000 Unit/Ml Vial 10 Ml INDWELLCAT 06/30/25 08:25 3,500 unit X1 PRN Administration DIALYSIS Piperacillin Sod/Tazobactam 100 mls @ 200 mls/hr 06/15/25 21:00 06/20/25 10:18 Sod 4.5 gm/ Sodium Chloride IV 06/22/25 20:59 Not Given Q12HR [facility] Insulin Human Lispro 0 unit 06/18/25 07:30 06/20/25 11:18 Insulin Lispro (Admelog) 1 Unit/0.01 Ml Unit SC 07/18/25 07:29 Not Given ACHS [facility] Protocol Midodrine 10 mg 06/18/25 09:00 06/20/25 05:29 Midodrine 5 Mg Tablet PO 07/18/25 08:59 Not Given TID ERIC Nortriptyline HCl 25 mg 06/18/25 21:00 06/19/25 21:24 Nortriptyline Hcl 25 Mg Capsule PO 07/18/25 20:59 Not Given HS [facility] Ondansetron HCl 4 mg 06/15/25 01:46 06/18/25 10:54 Ondansetron Inj 2 Mg/Ml Inj 2 Ml IVP 07/15/25 01:45 4 mg Q6H PRN Administration NAUSEA OR VOMITING Protocol Pharmacy Consult 1 each 06/15/25 09:00 Vancomycin Pharmacy To Dose 1 Each Each IV 07/15/25 08:59 QDAY PRN PROTOCOL Sennosides 1 tab 06/20/25 10:30 06/20/25 11:18 Senna Tablet PO 07/20/25 10:29 Not Given QDAY [facility] Protocol Vitamin B Complex/Vit C/Folic Acid 1 tab 06/18/25 09:00 06/20/25 10:18 Vitamin B Complex Tablet PO 07/18/25 08:59 Not Given QDAY [facility] Plan 65 y/o M with PMHx significant for ESRD (T//Sun) with Dr. Chadwick at [facility], hx of R renal kidney removal, well controlled T2DM , CRISTIANO, BPH, gastric bypass presents from SNF with left hip pain s/p ground-level fall admitted for left hip fracture and possible pneumonia. s/p 06/[address] Thomas. Today, he complains of new generalized abdominal pain and a marked pain response is elicited upon palpation of any abdominal quadrant. There is also an absence of bowel sounds on abdominal auscultation. The primary care team has ordered an abdominal X-ray which showed a nonobstructive bowel gas pattern. From nephrology's standpoint, he will be receiving urgent hemodialysis today (ongoing at time of interview). #ESRD on HD (//Sun) Patient has ESRD as stated. Follows with brim and crown presser Dr. Chadwick at [facility]. Patient has significant anasarca, BUE edema and LLE 1+ edema with RLE trace edema. Albumin 2.8. Plan: - HD today - Renally dose medications - strict i and o #Normocytic normochromic anemia - likely 2/2 ESRD #query R hip fracture? #Left hip intertrochanteric fracture #Right hip greater trochanter fracture #First coccygeal segment fracture #Right first sacral wing fracture MRI machine is down, unable to obtain, - fractures seen on xray and CT. - plan for Surgery with Dr. Thomas 06/17 #T2DM on insulin PRN- well controlled. Patient history as stated. Patient takes insulin as needed for significantly elevated blood sugar, which he reports is rare. A1c 5.7% as of 12/09/24. AM glucose 133 UA 3+ glucose, 1+ protein -Management as per primary team #Sepsis 2/2 CAP with end organ damage given transaminitis #Bibasilar CAP- on vanc and zosyn - renally dose vanc #Acute liver injury #CRISTIANO #electrolyte abnormalities- replete as indicated #sinus tachycardia to 130s - query 2/2 pain or dehydration, or CAP infection. - cards consult for cardiac clearance prior to surgery- CLEARED -started atenolol 25 BID #query HTN - Management as per primary team. Plan discussed with nephrology attending Dr. Edwin Alex, DO PGY-1 Internal Medicine Attending Provider Attestation/Addendum Patient seen and examined with resident physician Dr. Alex. Note reviewed, agree with findings and recommendations. Status post ground-level fall with a left and rt hip fracture. s/p surgery with Dr. Thomas. Patient currently seen on dialysis. Hemodialysis for 3 hours, 2K, ultrafiltration 2 L, Epogen 6000, no heparin ordered. Plan of care discussed with the dialysis nurse. Please see dialysis flowsheet for further details. Complaining of abdominal pain and had to stop dialysis 2 hours into. Spoke to primary team-KUB was ordered.
[2025-06-20] MEDS: MIDODRINE 5 MG TABLET 10 MG PO ×2 (14:43→21:00)
[2025-06-20] MEDS: SENNA/DOCUSATE SOD 1 TAB TABLET PO (15:50)
[2025-06-20] MEDS: POLYETHYLENE GLYCOL 17 GM PACKET PO (15:50)
[2025-06-20] MEDS: NALOXEGOL OXALATE 25 MG TABLET (NON-FORMULARY) PO (16:27)
[2025-06-20 19:15] LABS: Basophils # (Auto) 0.0 Thou/mm3 (0.0-0.2); Basophils % (Auto) 0 % (0-2.5); Eosinophils # (Auto) 0.0 Thou/mm3 (0.0-0.5); Eosinophils % (Auto) 0 % (0-10); Hematocrit 35.0 % (41.0-53.0); Hemoglobin 11.8 g/dL (13.5-16.0); Immature Granulocytes Auto 0.14 Thou/mm3 (0.00-0.00); Lymphocytes # (Auto) 1.1 Thou/mm3 (1.0-4.8); Lymphocytes % (Auto) 8 % (10-50); Mean Corpuscular HGB Conc 33.7 g/dl (31.0-37.0); Mean Corpuscular Hemoglobin 30.9 pg (25.0-35.0); Mean Corpuscular Volume 92 fL (80-100); Monocytes # (Auto) 0.5 Thou/mm3 (0.0-0.8); Monocytes % (Auto) 4 % (0-12); Neutrophils # (Auto) 11.8 Thou/mm3 (1.8-7.7); Neutrophils % (Auto) 87 % (37-80); Nucleated Red Blood Cell # 0.10 Thou/mm3 (0.00-0.00); Nucleated Red Blood Cell % 1 /100 WBC (0); Platelet Count 117 Thou/mm3 (140-440); RDW Standard Deviation 54.2 fL (35.1-43.9); Red Blood Count 3.82 Miln/mm3 (4.50-5.90); White Blood Count 13.6 Thou/mm3 (3.8-10.6)
[2025-06-20 19:34] LABS: Alanine Aminotransferase 53 U/L (10-49); Albumin, Serum 2.2 gm/dL (3.4-4.8); Albumin/Globulin Ratio 1.0 (1.2-2.2); Alkaline Phosphatase 399 U/L (46-116); Anion Gap 13 (7-16); Aspartate Amino Transferase 26 U/L (0-34); BUN/Creatinine Ratio 8 Ratio (12-20); Bilirubin,Total 0.9 mg/dL (0.3-1.2); Blood Urea Nitrogen 21 mg/dL (9-23); Calcium 8.4 mg/dL (8.3-10.6); Calcium (Corrected) 9.8 mg/dL (8.5-10.1); Carbon Dioxide 25.4 mMol/L (20.0-31.0); Chloride 100 mMol/L (98-107); Creatinine (Component) 2.6 mg/dL (0.6-1.3); Estimated Creatinine Clearance 30.6 mL/min (>60); Globulin 2.2 gm/dL (2.3-3.5); Glucose 219 mg/dL (74-106); Magnesium 1.6 mg/dL (1.6-2.6); Osmolality,Calculated 285 (275-295); Phosphorous 3.4 mg/dL (2.4-5.1); Potassium 3.6 mMol/L (3.4-5.1); Sodium 138 mMol/L (136-145); Total Protein 4.4 gm/dL (5.7-8.2); Vancomycin,Random 21.5 mcg/mL; eGFR 27 See Note
[2025-06-20] MEDS: PIPER/TAZO INJ 4.5 GM in SODIUM CHLORIDE 0.9% (POP) 100 ML IV (20:58)
[2025-06-20] MEDS: ASPIRIN EC 81 MG TABEC PO (20:58)
[2025-06-20] MEDS: NORTRIPTYLINE HCL 25 MG CAPSULE PO (20:58)
[2025-06-21] VITALS (14 sets, daily range): BP systolic 88–146; BP diastolic 55–83; PULSE 78–100; RESP 10–100; TEMP 36.1–36.6; O2SAT 92–100
--- NOTE | 2025-06-21 04:46 | PC.NURSE ---
pt complaining of pain on surgical site (L & R hip) rated 8/10. Dr. Matson was made aware, per MD they are holding pain med on purpose. MD will order lidocaine patch for the site that is hurting the most.
[2025-06-21] MEDS: NALOXEGOL OXALATE 25 MG TABLET (NON-FORMULARY) PO (05:13)
[2025-06-21] MEDS: MIDODRINE 5 MG TABLET 10 MG PO ×2 (05:13→14:12)
[2025-06-21] MEDS: LIDOCAINE 5% 1 PATCH TOP (05:13)
[2025-06-21] MEDS: ACETAMINOPHEN 325 MG TABLET 650 MG PO (05:13)
--- NOTE | 2025-06-21 06:00 | PC.NURSE ---
Pt complained of pain 07/15 and stated that pain did not improve with tylenol given at 0513 and lidocaine patch applied to left hip. Dr. Matson was made aware and stated that he would put order for gabapentin.
[2025-06-21] MEDS: GABAPENTIN 300 MG CAPSULE 600 MG PO (06:05)
--- NOTE | 2025-06-21 06:42 | PD.RESEVENT ---
Documentation for date of: 06/21/25 Event Note Event Note: Rapid was called at 06:35 for severe pain, patient was complaining of 9 out of 10 on left hip and knee. Patient received lidocaine patch and gabapentin 600 x 1 prior to rapid call. On exam patient was in pain but no acute distress gave him 1 mg of Dilaudid x 1. ----- Plan discussed with attending physician Dr. Clyde Stein MD PGY-1 Internal Medicine
[2025-06-21] MEDS: HYDROmorphone INJ 2 MG/ML VIAL 1 MG IVP (07:37)
--- NOTE | 2025-06-21 08:26 | ESPR_ITS ---
<Statement entered by Alex Corley MD - 06/22/25 09:04> Patient was examined and case was reviewed with team including attending physician. Note reviewed, I agree with most of its contents and agree with the patient's care as documented by Dr. Bunch Patient seen and evaluated at bedside. Overnight patient was given 1 mg of Dilaudid patient was somnolent throughout the whole day. Later in the afternoon patient became more alert and awake. Likely discharge the next 24-48 hours. Case discussed with my attending Dr. Susan Corley MD PGY-2 Disclaimer: Despite multiple revisions, due to the dictation software being used, the document bellow may not be free of grammatical errors including phonetic/typographic errors. However, this does not deter from our commitment to providing health care in the patient's best interest in mind. Documentation for date of: 06/21/25 Subjective Subjective Interval history: Patient had rapid response this AM for pain. Overnight patient was having left hip pain. Given lidocaine patch and gabapentin, no symptom relief. Given dilaudid 1mg x1 this AM, improved pain. Patient evaluated at bedside, was sleepy but easily arousable to voice. Reported no hip pain. Patient had multiple bowel movements yesterday, overnight, and this AM. Made bowel regimen PRN instead of scheduled. Exam Vital Signs Temp Pulse Resp BP Pulse Ox O2 Del Method O2 Flow Rate 97.3 F 85 16 114/75 99 Nasal Cannula 2 06/21/25 07:42 06/21/25 07:42 06/21/25 07:42 06/21/25 07:42 06/21/25 07:42 06/21/25 07:42 06/21/25 07:42 Narrative Exam General: Laying comfortably in bed, sleepy but easily arouable to voice Eye: EOMI, normal conjunctiva, no scleral icterus HENT: Normocephalic, atraumatic, normal hearing, moist oral mucosa Neck: Supple, non-tender, no JVD, no lymphadenopathy Lungs: Clear to auscultation bilaterally, non-labored respirations, symmetric chest rise, no use of accessory muscles Heart: Regular rate. Normal S1 and S2, no S3 or S4 appreciated. Normal rate and regular rhythm, no murmurs, rubs gallops, or edema. Peripheral pulses intact bilaterally, capillary refill brisk distally. Right chest dialysis catheter in place. Abdomen: Soft, nontender, non-distended, hyperactive bowel sounds. Musculoskeletal: Dressing applied to bilateral hips. Neurologic: AOx3. No focal neuro deficits. Psychiatric: Cooperative, appropriate mood and affect Objective Labs 06/22/25 07:37 06/22/25 05:58 Labs: Laboratory Results - last 24 hr 06/20/25 06/20/25 06/20/25 18:57 18:57 18:57 WBC 13.6 H RBC 3.82 L Hgb 11.8 L Cancelled Hct 35.0 L Cancelled MCV 92 MCH 30.9 MCHC 33.7 RDW Std Deviation 54.2 H Plt Count 117 L D Neut % (Auto) 87 H Lymph % (Auto) 8 L [place] % (Auto) 4 Eos % (Auto) 0 Baso % (Auto) 0 Neut # (Auto) 11.8 H Lymph # (Auto) 1.1 [place] # (Auto) 0.5 Eos # (Auto) 0.0 Baso # (Auto) 0.0 Immature Gran # (Auto) 0.14 H Absolute Nucleated RBC 0.10 H Immature Gran % 1 H Nucleated RBC % 1 H Sodium 138 Potassium 3.6 D Chloride 100 Carbon Dioxide 25.4 Anion Gap 13 BUN 21 Creatinine 2.6 H Estim Creat Clear Calc 30.6 L eGFR 27 L BUN/Creatinine Ratio 8 L Glucose 219 H D Calculated Osmolality 285 Calcium 8.4 Corrected Calcium 9.8 Phosphorus 3.4 Magnesium 1.6 Total Bilirubin 0.9 AST 26 ALT 53 H Alkaline Phosphatase 399 H D Total Protein 4.4 L Albumin 2.2 L Globulin 2.2 L Albumin/Globulin Ratio 1.0 L Random Vancomycin 21.5 Quality Measures Quality Measures VTE prophylaxis Assessment & Plan Assessment Current Active Medications: Generic Name Dose Route Start Last Admin Trade Name Freq PRN Reason Stop Dose Admin Acetaminophen 650 mg 06/15/25 08:49 06/21/25 05:13 Acetaminophen 325 Mg Tablet PO 07/15/25 01:45 650 mg Q6H PRN Administration Fever >100.4 or pain 1-3 Aspirin 81 mg 06/20/25 21:00 06/20/25 20:58 Aspirin Ec 81 Mg Tabec PO 07/20/25 20:59 81 mg BID ERIC Administration Atenolol 25 mg 06/16/25 09:00 06/17/25 08:51 Atenolol 25 Mg Tablet PO 07/16/25 08:59 25 mg BID ERIC Administration Dextrose 25 ml 06/15/25 03:01 Dextrose 50%-Water Inj 50 Ml Syringe IV 07/15/25 03:00 Q15MIN PRN BG 50-70 responsive npo pt Dextrose 50 ml 06/15/25 03:01 Dextrose 50%-Water Inj 50 Ml Syringe IV 07/15/25 03:00 Q15MIN PRN BG <50 OR BG <70 & pt unresponsive Docusate Sodium 100 mg 06/20/25 10:45 06/20/25 11:18 Docusate Sod 100 Mg Capsule PO 07/20/25 10:44 Not Given QDAY [facility] Protocol Glucagon 1 mg 06/15/25 03:01 Glucagon Inj 1 Mg Vial IM Q15MIN PRN BG <70, and no IV access Heparin Sodium (Porcine) 5,000 unit 06/15/25 09:00 06/20/25 11:04 Heparin Sod Inj 5000 Unit/Ml Vial SC 06/29/25 08:59 Not Given Q12HR [facility] Heparin Sodium (Porcine) 3,500 unit 06/16/25 08:26 06/16/25 11:08 Heparin Sod Inj 1000 Unit/Ml Vial 10 Ml INDWELLCAT 06/30/25 08:25 3,500 unit X1 PRN Administration DIALYSIS Piperacillin Sod/Tazobactam 100 mls @ 200 mls/hr 06/15/25 21:00 06/20/25 20:58 Sod 4.5 gm/ Sodium Chloride IV 06/22/25 20:59 200 mls/hr Q12HR ERIC Administration Insulin Human Lispro 0 unit 06/18/25 07:30 06/21/25 07:08 Insulin Lispro (Admelog) 1 Unit/0.01 Ml Unit SC 07/18/25 07:29 Not Given ACHS [facility] Protocol Midodrine 10 mg 06/18/25 09:00 06/21/25 05:13 Midodrine 5 Mg Tablet PO 07/18/25 08:59 10 mg TID ERIC Administration Naloxegol 25 mg 06/20/25 15:45 06/21/25 05:13 Naloxegol Oxalate 25 Mg Tablet (Non-Formulary) PO 07/20/25 15:44 25 mg ACBR ERIC Administration Nortriptyline HCl 25 mg 06/18/25 21:00 06/20/25 20:58 Nortriptyline Hcl 25 Mg Capsule PO 07/18/25 20:59 25 mg HS ERIC Administration Ondansetron HCl 4 mg 06/15/25 01:46 06/18/25 10:54 Ondansetron Inj 2 Mg/Ml Inj 2 Ml IVP 07/15/25 01:45 4 mg Q6H PRN Administration NAUSEA OR VOMITING Protocol Pharmacy Consult 1 each 06/15/25 09:00 Vancomycin Pharmacy To Dose 1 Each Each IV 07/15/25 08:59 QDAY PRN PROTOCOL Sennosides 1 tab 06/20/25 10:30 06/20/25 11:18 Senna Tablet PO 07/20/25 10:29 Not Given QDAY ERIC Protocol Vitamin B Complex/Vit C/Folic Acid 1 tab 06/18/25 09:00 06/20/25 10:18 Vitamin B Complex Tablet PO 07/18/25 08:59 Not Given QDAY ERIC Plan 65M with PMHx significant for ESRD (on dialysis T//Sun) with Dr. Chadwick, diabetes, CRISTIANO, BPH, gastric bypass presents from SNF with left hip pain s/p ground-level fall admitted for left hip fracture and possible pneumonia. #Left hip intertrochanteric fracture #Right hip greater trochanter fracture #First coccygeal segment fracture #Right first sacral wing fracture Patient had a ground-level fall without loc. CT imaging confirmed left hip fracture. Head CT negative. Patient initially in pain, relieved with morphine. MRI shows acute intertrochanteric fracture left hip without significant displacement Cleared by cardiology for surgery. Ct of bilateral hips revealed acute comminuted intertrochanteric fracture left hip and acute fracture greater trochanter right hip which does extend into the intertrochanteric region right hip, without significant displacement POD#1: Patient is now S/P bilateral hip cephalomedullary nails. Patient tolerated the procedure well and is in stable condition. Overnight, patient was found to be hypotensive with MAP of 61. 250cc bolus of LR was given and atenolol was hold. Blood pressure did not improve and rapid was called around 2200 for hypotension of 80s/50s and MAP of 60. Patient was asymptomatic. Home midodrine was resumed and albumin 25 was given due to low albumin. Patient was found to have Hgb of 7.8. thus 1x PRBC was given. Blood pressure has improved to 126/60. Lactate improved to 1.0. Plan: - Patient is ready to be discharged from orthopedic standpoint - Continue home Midodrine - ASA 81 BID - WBAT - PT/OT - Byron 5/325 mg PO q6h PRN - Patient needs to follow up with Dr. Thomas outpatient in 2 weeks #Abdominal pain - resolved While receiving dialysis patient reported diffuse abdominal pain with tenderness to palpation on exam and hypoactive bowel sounds. Patient has had bowel movements earlier. KUB was ordered which showed Nonobstructive bowel gas pattern. Patient had multiple bowel movements since scheduling bowel regimen Plan: -Made bowel regimen PRN instead of scheduled #Sepsis - resolved #Bibasilar CAP Improved Leukocytosis from 14.8 on admission to 11.7. Patient is afebrile. Lactic acid, Pro-Guero, UA negative. Imaging shows vascular congestion, bibasilar PNA Sofa score 2. Negative rapid flu/covid Blood cx negative Plan: - Continue Vancomycin pharmacy dosing (started 06/15) - Continue Zosyn 4.5 g IV q12h (started 06/15) (renally dosed) #ESRD on HD (//Sun) #Anasarca Follows with cured meats supervisor Dr. Chadwick. Cr 2.5 (at baseline) Albumin 2.1 Plan: - Completed dialysis today - Renally dose medications - Strict i and o #Chronic sinus tachycardia #Hypotension Improved sinus tachycardia to 77 Cardiology was consulted. Plan: - Continue home Midodrine - Held atenolol 25 mg BID for episode of hypotension #Acute liver injury - resolved #Transaminitis - resolved #Elevated alk phos Elevated alk phos most likely 2/[address] showed cirrhosis, mild ascites, distended gallbladder. In regards to gallbladder, patient is asymptomatic and denies any symptoms with eating. Plan: - CTM - Avoid hepatotoxins #Diabetes Patient takes insulin as needed for significantly elevated blood sugar, which he reports is rare. UA 3+ glucose, 1+ protein A1C 5.4 Plan: - ISS #CRISTIANO Patient has history of obstructive sleep apnea. Plan: - BiPAP as needed at bedtime #Normocytic normochromic anemia Most likely secondary to ESRD Recent drop of Hgb is most likely due to blood loss during surgery. PRBC 1x given. Plan: - Follow H&H - CTM with daily CBC #Hypomagnesemia Plan: - CTM -Replete as needed Dispo: b/l hip pain mgmt s/p surgery, CAP management DVT prophylaxis: ASA 81 BID GI prophylaxis: None Bowel reg: Docusate, Senna PRN Diet: Renal Pain mgmt: Tylenol Lines: Dialysis port Code status: DNR Plan discussed with Dr. Hanna and Dr. Susan Bailey MD PGY1 Attending Provider Attestation/Addendum I, Mikayla Davis DO, attest that I was physically present for the lerma portions of the service and evaluated the patient with the resident and I reviewed and discussed the case with the resident and agree with the resident's findings and plans of care as documented above Patient seen and eval this a.m. Patient complained of left hip pain today. He was able to have bowel movements overnight. No further episodes of abdominal pain. Patient is quite somnolent, likely secondary to Dilaudid though he had received this morning. Patient states that he is dizzy, likely secondary to the dilaudid. Will switch pain meds to Byron as needed. Leukocytosis worsening, but patient has been afebrile. Will continue to monitor closely.
[2025-06-21] MEDS: PIPER/TAZO INJ 4.5 GM in SODIUM CHLORIDE 0.9% (POP) 100 ML IV ×2 (09:55→20:29)
--- NOTE | 2025-06-21 09:57 | PC.NURSE ---
Patient too groggy to swallow safely, MD made aware okayed holding PO meds until patient is more awake.
--- NOTE | 2025-06-21 11:09 | ESPR_ITS ---
Documentation for date of: 06/21/25 Subjective Subjective Interval history: Mr. Gonzalez is a 65 y/o M with PMHx significant for ESRD (//Sun) with Dr. Chadwick at [facility], diabetes, CRISTIANO, BPH, gastric bypass presents from SNF with left hip pain s/p ground-level fall with witnessed head strike. Pt states that he was standing, and while bending down to lower his pants to use the restroom, he started to fall forward. His nurse was with him and tried to catch him but they both fell to the ground. no LOC. He landed on his Left side. Found to have bilateral hip fractures and L femur fracture on xray and CT, and MRI Interval History 06/15/2025 Nephorology consulted for ESRD on TTS HD. patient seen and examined at bedside. reports that he has been attending HD regularly at [facility]. He states that he has L hip and femur fracture with plan for surgery this sunday, 06/[address] Thomas. On exam, he has BUE edema in the forearms to elbow, with RUE contusions on forearm 2/2 needle sticks not his ground level fall. He has nl work of breathing, tachycardic on exam to 120s. He has catheter on R chest for HD. Cr. 2.3 from 2.1 BUN 15 from 13. He states that he is pending a fistula on the LUE. Plan for HD 06/16 prior to surgery on 06/17. 06/16/2025: Patient seen and examined in HD. (TTS) reports that he lost his L glove that he wears because his hands are offten cold. Pt states that his pain is well controlled and that he has no new concerns. Of note MRI machine is down, query whether pt has bilateral hip fractures. On exam pt has nl work of breathing, pt remains tachycardic to 130s, Cr 2.6 from 2.3, BUN 16 from 15. tolerating HD well. Plan for surgery tomorrow with Dr. Thomas for multiple fractures. 06/18/2025: Patient had 2 rapid responses called for hypotension yesterday (17:10 and 22:47, 06/17). During the 1st RR, patient had their atenolol held and was given a 250 mL LR bolus. During the 2nd RR, patient had their home Midodrine resumed, given IV albumin, and given 1 L LR bolus. Patient seen and examined at bedside; they report feeling generally well today with no new complaints or concerns. Notable labs today include: Hgb 8.2, creatinine bump to 2.5 from 2.2, eGFR drop to 28 from 33, lactic acid drop to 1.0 from 2.6, AST bump to 167 from 28, ALT bump to 97 from 29, alkaline phosphatase bump to 448 from 388. From nephrology's standpoint, patient will be receiving HD today. 06/19/2025: No overnight events. Patient seen and examined at bedside; they report feeling generally well today with no new complaints or concerns. Patient will be discharged today and follow-up for hemodialysis in the outpatient setting. 06/20/2025: No overnight events. Patient seen and examined at bedside while on hemodialysis; he complains of new generalized abdominal pain and a marked pain response is elicited upon palpation of any abdominal quadrant. There is also an absence of bowel sounds on abdominal auscultation. No labs were drawn for the patient today which this marketing underwriter assumes is due to the fact that he was planned to be discharged yesterday. The primary care team has ordered an abdominal X- ray which showed a nonobstructive bowel gas pattern. From nephrology's standpoint, he will be receiving urgent hemodialysis today (ongoing at time of interview). 06/21/2025. Patient seen and examined at bedside. He had HD yesterday per his usual schedule T/T/S, HD was stopped early yesterday 2/2 abdominal pain. Today pt reports having a BM and no more abdominal pain. On exam, pt has some trace pitting of BLE, abdomen is soft NTND. no labs drawn today. Exam Vital Signs Temp Pulse Resp BP Pulse Ox O2 Del Method O2 Flow Rate 97.3 F 85 16 114/75 99 Nasal Cannula 2 06/21/25 07:42 06/21/25 07:42 06/21/25 07:42 06/21/25 07:42 06/21/25 07:42 06/21/25 07:42 06/21/25 07:42 Narrative Exam GENERAL: A&O x3, laying in HD bed HEENT: Head AT/ NC. Mucous membranes moist. PERRL. some small bruises on the face. CARDIOVASCULAR: tachycardic to 100s. Normal S1/S2, No m/r/g. LLE 1+ edema to mid hernandez, RLE with skin wrinkling, trace edema skin . BUE with edema to elbows, query lymphedema? R HD catheter RESPIRATORY: nl work of breathing . No wheezing, rhonchi, crackles, in upper lung melgar, GASTROINTESTINAL:Abdomen soft, NTND, BS present, no palpable masses. MUSCULOSKELETAL:? No cyanosis, no visible joint swelling. NEUROLOGICAL: CN II-XII grossly intact. No focal deficits. Sensation intact, symmetric. speech is slow. PSYCHIATRIC: Awake and alert, not agitated, affect is flat. SKIN: RUE contusions violacious, on dorsal forearm. Objective Labs 06/20/25 18:57 06/20/25 18:57 Labs: Laboratory Results - last 24 hr 06/20/25 06/20/25 06/20/25 18:57 18:57 18:57 WBC 13.6 H RBC 3.82 L Hgb 11.8 L Cancelled Hct 35.0 L Cancelled MCV 92 MCH 30.9 MCHC 33.7 RDW Std Deviation 54.2 H Plt Count 117 L D Neut % (Auto) 87 H Lymph % (Auto) 8 L [place] % (Auto) 4 Eos % (Auto) 0 Baso % (Auto) 0 Neut # (Auto) 11.8 H Lymph # (Auto) 1.1 [place] # (Auto) 0.5 Eos # (Auto) 0.0 Baso # (Auto) 0.0 Immature Gran # (Auto) 0.14 H Absolute Nucleated RBC 0.10 H Immature Gran % 1 H Nucleated RBC % 1 H Sodium 138 Potassium 3.6 D Chloride 100 Carbon Dioxide 25.4 Anion Gap 13 BUN 21 Creatinine 2.6 H Estim Creat Clear Calc 30.6 L eGFR 27 L BUN/Creatinine Ratio 8 L Glucose 219 H D Calculated Osmolality 285 Calcium 8.4 Corrected Calcium 9.8 Phosphorus 3.4 Magnesium 1.6 Total Bilirubin 0.9 AST 26 ALT 53 H Alkaline Phosphatase 399 H D Total Protein 4.4 L Albumin 2.2 L Globulin 2.2 L Albumin/Globulin Ratio 1.0 L Random Vancomycin 21.5 Quality Measures Quality Measures VTE prophylaxis Assessment & Plan Assessment Current Active Medications: Generic Name Dose Route Start Last Admin Trade Name Freq PRN Reason Stop Dose Admin Acetaminophen 650 mg 06/15/25 08:49 06/21/25 05:13 Acetaminophen 325 Mg Tablet PO 07/15/25 01:45 650 mg Q6H PRN Administration Fever >100.4 or pain 1-3 Aspirin 81 mg 06/20/25 21:00 06/21/25 09:56 Aspirin Ec 81 Mg Tabec PO 07/20/25 20:59 Not Given BID COUNTS INCLUDE 234 BEDS AT THE [facility] Atenolol 25 mg 06/16/25 09:00 06/17/25 08:51 Atenolol 25 Mg Tablet PO 07/16/25 08:59 25 mg BID ERIC Administration Dextrose 25 ml 06/15/25 03:01 Dextrose 50%-Water Inj 50 Ml Syringe IV 07/15/25 03:00 Q15MIN PRN BG 50-70 responsive npo pt Dextrose 50 ml 06/15/25 03:01 Dextrose 50%-Water Inj 50 Ml Syringe IV 07/15/25 03:00 Q15MIN PRN BG <50 OR BG <70 & pt unresponsive Docusate Sodium 100 mg 06/20/25 10:45 06/21/25 09:56 Docusate Sod 100 Mg Capsule PO 07/20/25 10:44 Not Given QDAY COUNTS INCLUDE 234 BEDS AT THE [facility] Protocol Glucagon 1 mg 06/15/25 03:01 Glucagon Inj 1 Mg Vial IM Q15MIN PRN BG <70, and no IV access Heparin Sodium (Porcine) 5,000 unit 06/15/25 09:00 06/20/25 11:04 Heparin Sod Inj 5000 Unit/Ml Vial SC 06/29/25 08:59 Not Given Q12HR COUNTS INCLUDE 234 BEDS AT [facility] Heparin Sodium (Porcine) 3,500 unit 06/16/25 08:26 06/16/25 11:08 Heparin Sod Inj 1000 Unit/Ml Vial 10 Ml INDWELLCAT 06/30/25 08:25 3,500 unit X1 PRN Administration DIALYSIS Piperacillin Sod/Tazobactam 100 mls @ 200 mls/hr 06/15/25 21:00 06/21/25 09:55 Sod 4.5 gm/ Sodium Chloride IV 06/22/25 20:59 200 mls/hr Q12HR ERIC Administration Insulin Human Lispro 0 unit 06/18/25 07:30 06/21/25 07:08 Insulin Lispro (Admelog) 1 Unit/0.01 Ml Unit SC 07/18/25 07:29 Not Given ACHS ER[facility] Protocol Midodrine 10 mg 06/18/25 09:00 06/21/25 05:13 Midodrine 5 Mg Tablet PO 07/18/25 08:59 10 mg TID ERIC Administration Naloxegol 25 mg 06/20/25 15:45 06/21/25 05:13 Naloxegol Oxalate 25 Mg Tablet (Non-Formulary) PO 07/20/25 15:44 25 mg ACBR ERIC Administration Nortriptyline HCl 25 mg 06/18/25 21:00 06/20/25 20:58 Nortriptyline Hcl 25 Mg Capsule PO 07/18/25 20:59 25 mg HS ERIC Administration Ondansetron HCl 4 mg 06/15/25 01:46 06/18/25 10:54 Ondansetron Inj 2 Mg/Ml Inj 2 Ml IVP 07/15/25 01:45 4 mg Q6H PRN Administration NAUSEA OR VOMITING Protocol Pharmacy Consult 1 each 06/15/25 09:00 Vancomycin Pharmacy To Dose 1 Each Each IV 07/15/25 08:59 QDAY PRN PROTOCOL Sennosides 1 tab 06/20/25 10:30 06/21/25 09:56 Senna Tablet PO 07/20/25 10:29 Not Given QDAY ERIC Protocol Vitamin B Complex/Vit C/Folic Acid 1 tab 06/18/25 09:00 06/21/25 09:56 Vitamin B Complex Tablet PO 07/18/25 08:59 Not Given QDAY ERIC Plan 65 y/o M with PMHx significant for ESRD (T//Sun) with Dr. Chadwick at [facility], hx of R renal kidney removal, well controlled T2DM , CRISTIANO, BPH, gastric bypass presents from SNF with left hip pain s/p ground-level fall admitted for left hip fracture and possible pneumonia. s/p 06/[address] Thomas. pt had abdominal pain on 06/20 that is now resolved, pt had BM. #ESRD on HD (T//Sun) Patient has ESRD as stated. Follows with mr teacher Dr. Chadwick at [facility]. Patient has significant anasarca, BUE edema and LLE 1+ edema with RLE trace edema. Albumin 2.8. Plan: - no HD today - Renally dose medications - strict i and o #Normocytic normochromic anemia - likely 2/2 ESRD #R hip fracture- s/p surgery #Left hip intertrochanteric fracture-s/p surgery #Right hip greater trochanter fracture- s/p surgery #First coccygeal segment fracture #Right first sacral wing fracture #T2DM on insulin PRN Patient history as stated. Patient takes insulin as needed for significantly elevated blood sugar, which he reports is rare. A1c 5.7% as of 12/09/24. AM glucose 208 UA 3+ glucose, 1+ protein -Management as per primary team #Sepsis 2/2 CAP with end organ damage given transaminitis #Bibasilar CAP- on vanc and zosyn #Acute liver injury #CRISTIANO #electrolyte abnormalities- replete as indicated #sinus tachycardia to 130s - query 2/2 pain or dehydration, or CAP infection. - cards consult for cardiac clearance prior to surgery- CLEARED -started atenolol 25 BID #HTN - Management as per primary team. Plan discussed with nephrology attending Dr. Edwin Gonsalves MD Internal Medicine PGY-1 Attending Provider Attestation/Addendum Patient seen and examined with resident physician Dr. Gonsalves. Note reviewed, agree with findings and recommendations. Status post ground-level fall with a left and rt hip fracture. s/p surgery with Dr. Thomas. Abdominal pain much better today. Spoke to primary team-KUB was ordered.
--- NOTE | 2025-06-21 14:43 | PC.PT ---
PT Tx deferred as Pt was lethargic and RR earlier today due to severe pain levels.
[2025-06-21 19:30] LABS: Alanine Aminotransferase 38 U/L (10-49); Albumin, Serum 2.3 gm/dL (3.4-4.8); Albumin/Globulin Ratio 1.0 (1.2-2.2); Alkaline Phosphatase 358 U/L (46-116); Anion Gap 12 (7-16); Aspartate Amino Transferase 22 U/L (0-34); BUN/Creatinine Ratio 9 Ratio (12-20); Bilirubin,Total 0.9 mg/dL (0.3-1.2); Blood Urea Nitrogen 28 mg/dL (9-23); Calcium 8.7 mg/dL (8.3-10.6); Calcium (Corrected) 10.1 mg/dL (8.5-10.1); Carbon Dioxide 26.1 mMol/L (20.0-31.0); Chloride 99 mMol/L (98-107); Creatinine (Component) 3.0 mg/dL (0.6-1.3); Estimated Creatinine Clearance 26.5 mL/min (>60); Globulin 2.3 gm/dL (2.3-3.5); Glucose 196 mg/dL (74-106); Magnesium 2.0 mg/dL (1.6-2.6); Osmolality,Calculated 284 (275-295); Phosphorous 3.8 mg/dL (2.4-5.1); Potassium 3.6 mMol/L (3.4-5.1); Sodium 137 mMol/L (136-145); Total Protein 4.6 gm/dL (5.7-8.2); eGFR 22 See Note
[2025-06-21] MEDS: ASPIRIN EC 81 MG TABEC PO (20:29)
[2025-06-21] MEDS: NORTRIPTYLINE HCL 25 MG CAPSULE PO (20:29)
[2025-06-21] MEDS: HYDROcodone/APAP 5/325 TABLET 1 TAB PO (20:29)
[2025-06-21 22:21] LABS: Basophils # (Auto) 0.0 Thou/mm3 (0.0-0.2); Basophils % (Auto) 0 % (0-2.5); Eosinophils # (Auto) 0.1 Thou/mm3 (0.0-0.5); Eosinophils % (Auto) 1 % (0-10); Hematocrit 26.7 % (41.0-53.0); Immature Granulocytes Auto 0.14 Thou/mm3 (0.00-0.00); Lymphocytes # (Auto) 1.3 Thou/mm3 (1.0-4.8); Lymphocytes % (Auto) 7 % (10-50); Mean Corpuscular HGB Conc 33.0 g/dl (31.0-37.0); Mean Corpuscular Hemoglobin 31.9 pg (25.0-35.0); Mean Corpuscular Volume 97 fL (80-100); Monocytes # (Auto) 0.8 Thou/mm3 (0.0-0.8); Monocytes % (Auto) 5 % (0-12); Neutrophils # (Auto) 16.0 Thou/mm3 (1.8-7.7); Neutrophils % (Auto) 87 % (37-80); Nucleated Red Blood Cell # 0.04 Thou/mm3 (0.00-0.00); Nucleated Red Blood Cell % 0 /100 WBC (0); Platelet Count 240 Thou/mm3 (140-440); RDW Standard Deviation 54.4 fL (35.1-43.9); Red Blood Count 2.76 Miln/mm3 (4.50-5.90); White Blood Count 18.4 Thou/mm3 (3.8-10.6)
[2025-06-21 22:25] LABS: Hemoglobin 8.8 g/dL (13.5-16.0)
[2025-06-22] VITALS (11 sets, daily range): BP systolic 109–169; BP diastolic 60–91; PULSE 86–104; RESP 15–20; TEMP 36.3–36.8; O2SAT 19–99; BMI 12.0; BMI 28.0
[2025-06-22 06:44] LABS: Alanine Aminotransferase 27 U/L (10-49); Albumin, Serum 1.8 gm/dL (3.4-4.8); Albumin/Globulin Ratio 0.8 (1.2-2.2); Alkaline Phosphatase 297 U/L (46-116); Anion Gap 12 (7-16); Aspartate Amino Transferase 13 U/L (0-34); BUN/Creatinine Ratio 10 Ratio (12-20); Bilirubin,Total 0.8 mg/dL (0.3-1.2); Blood Urea Nitrogen 30 mg/dL (9-23); Calcium 8.3 mg/dL (8.3-10.6); Calcium (Corrected) 10.1 mg/dL (8.5-10.1); Carbon Dioxide 24.4 mMol/L (20.0-31.0); Chloride 99 mMol/L (98-107); Creatinine (Component) 3.1 mg/dL (0.6-1.3); Estimated Creatinine Clearance 25.7 mL/min (>60); Globulin 2.2 gm/dL (2.3-3.5); Glucose 178 mg/dL (74-106); Magnesium 1.7 mg/dL (1.6-2.6); Osmolality,Calculated 280 (275-295); Phosphorous 3.8 mg/dL (2.4-5.1); Potassium 3.3 mMol/L (3.4-5.1); Sodium 135 mMol/L (136-145); Total Protein 4.0 gm/dL (5.7-8.2); Vancomycin,Random 19.2 mcg/mL; eGFR 22 See Note
--- NOTE | 2025-06-22 08:09 | ESPR_ITS ---
<Statement entered by Alex Corley MD - 06/22/25 15:20> Patient was examined and case was reviewed with team including attending physician. Note reviewed, I agree with most of its contents and agree with the patient's care as documented by Dr. Araujo Patient seen today at the bedside found awake, alert, orientedx3. No overnight events reported. Vitals and labs reviewed. No active complaints at this time. Pain adequately controlled at this time. On physical exam patient noted to be more fluid overloaded likely in the setting of preemptively discontinuing dialysis 2 days ago due to hypotension. Spoke to nephrology who recommended an dialysis session tomorrow. Patient at this time trending towards discharge likely in the next 24-48 hours. Case discussed with my attending Dr. Susan Corley MD PGY-2 Disclaimer: Despite multiple revisions, due to the dictation software being used, the document bellow may not be free of grammatical errors including phonetic/typographic errors. However, this does not deter from our commitment to providing health care in the patient's best interest in mind. Documentation for date of: 06/22/25 Subjective Subjective Interval history: 06/22/25: NAEON. VSS. Patient denies any shortness of breath or fever however endorses hip discomfort L>R. Patient has had bowel movements per RN. Exam Vital Signs Temp Pulse Resp BP Pulse Ox O2 Del Method O2 Flow Rate 98.2 F 96 18 144/91 H 96 Nasal Cannula 1 06/22/25 04:00 06/22/25 05:44 06/22/25 04:00 06/22/25 05:44 06/22/25 04:00 06/22/25 04:00 06/22/25 04:00 Narrative Exam General: Laying comfortably in bed, in no acute distress. Eye: EOMI, normal conjunctiva, no scleral icterus HENT: Normocephalic, atraumatic, normal hearing, moist oral mucosa Neck: Supple, non-tender, no JVD, no lymphadenopathy Lungs: RHonchi noted in L lung field and coarse crackles in right upper melgar, non-labored respirations, symmetric chest rise, no use of accessory muscles. Saturating 95% at RA. Heart: Regular rate. Normal S1 and S2, no S3 or S4 appreciated. Normal rate and regular rhythm, no murmurs, rubs gallops, or edema. Peripheral pulses intact bilaterally, capillary refill brisk distally. Right chest dialysis catheter in place. Abdomen: Soft, nontender, non-distended, hyperactive bowel sounds. Musculoskeletal: Dressing applied to bilateral hips. Neurologic: AOx3. No focal neuro deficits. EXT: bilateral edema of the feet noted Psychiatric: Cooperative, appropriate mood and affect Objective Labs 06/23/25 08:39 06/23/25 08:39 Labs: Laboratory Results - last 24 hr 06/21/25 06/21/25 06/22/25 16:38 22:09 05:58 WBC 18.4 H RBC 2.76 L Hgb 8.8 L D Hct 26.7 L MCV 97 MCH 31.9 MCHC 33.0 RDW Std Deviation 54.4 H Plt Count 240 D Neut % (Auto) 87 H Lymph % (Auto) 7 L [place] % (Auto) 5 Eos % (Auto) 1 Baso % (Auto) 0 Neut # (Auto) 16.0 H Lymph # (Auto) 1.3 [place] # (Auto) 0.8 Eos # (Auto) 0.1 Baso # (Auto) 0.0 Immature Gran # (Auto) 0.14 H Absolute Nucleated RBC 0.04 H Immature Gran % 1 H Nucleated RBC % 0 Sodium 137 135 L Potassium 3.6 3.3 L Chloride 99 99 Carbon Dioxide 26.1 24.4 Anion Gap 12 12 BUN 28 H 30 H Creatinine 3.0 H 3.1 H Estim Creat Clear Calc 26.5 L 25.7 L eGFR 22 L 22 L BUN/Creatinine Ratio 9 L 10 L Glucose 196 H 178 H Calculated Osmolality 284 280 Calcium 8.7 8.3 Corrected Calcium 10.1 10.1 Phosphorus 3.8 3.8 Magnesium 2.0 1.7 Total Bilirubin 0.9 0.8 AST 22 13 ALT 38 27 Alkaline Phosphatase 358 H D 297 H D Total Protein 4.6 L 4.0 L Albumin 2.3 L 1.8 L D Globulin 2.3 2.2 L Albumin/Globulin Ratio 1.0 L 0.8 L Random Vancomycin 19.2 Quality Measures Quality Measures VTE prophylaxis Assessment & Plan Assessment Current Active Medications: Generic Name Dose Route Start Last Admin Trade Name Freq PRN Reason Stop Dose Admin Acetaminophen 650 mg 06/15/25 08:49 06/21/25 05:13 Acetaminophen 325 Mg Tablet PO 07/15/25 01:45 650 mg Q6H PRN Administration Fever >100.4 or pain 1-3 Hydrocodone Bitart/Acetaminophen 1 tab 06/21/25 13:12 06/21/25 20:29 Hydrocodone/Apap 5/325 Tablet PO 06/26/25 13:11 1 tab Q6HR PRN Administration PAIN 4-6 Aspirin 81 mg 06/20/25 21:00 06/21/25 20:29 Aspirin Ec 81 Mg Tabec PO 07/20/25 20:59 81 mg BID ERIC Administration Dextrose 25 ml 06/15/25 03:01 Dextrose 50%-Water Inj 50 Ml Syringe IV 07/15/25 03:00 Q15MIN PRN BG 50-70 responsive npo pt Dextrose 50 ml 06/15/25 03:01 Dextrose 50%-Water Inj 50 Ml Syringe IV 07/15/25 03:00 Q15MIN PRN BG <50 OR BG <70 & pt unresponsive Docusate Sodium 100 mg 06/21/25 12:12 Docusate Sod 100 Mg Capsule PO 07/20/25 10:44 QDAY PRN Constipation Protocol Glucagon 1 mg 06/15/25 03:01 Glucagon Inj 1 Mg Vial IM Q15MIN PRN BG <70, and no IV access Heparin Sodium (Porcine) 5,000 unit 06/15/25 09:00 06/20/25 11:04 Heparin Sod Inj 5000 Unit/Ml Vial SC 06/29/25 08:59 Not Given Q12HR [facility] Heparin Sodium (Porcine) 3,500 unit 06/16/25 08:26 06/16/25 11:08 Heparin Sod Inj 1000 Unit/Ml Vial 10 Ml INDWELLCAT 06/30/25 08:25 3,500 unit X1 PRN Administration DIALYSIS Piperacillin Sod/Tazobactam 100 mls @ 200 mls/hr 06/15/25 21:00 06/21/25 20:29 Sod 4.5 gm/ Sodium Chloride IV 06/22/25 20:59 200 mls/hr Q12HR ERIC Administration Insulin Human Lispro 0 unit 06/18/25 07:30 06/21/25 20:37 Insulin Lispro (Admelog) 1 Unit/0.01 Ml Unit SC 07/18/25 07:29 Not Given ACHS ERIC Protocol Midodrine 10 mg 06/18/25 09:00 08/18/25 05:44 Midodrine 5 Mg Tablet PO 07/18/25 08:59 Not Given TID ERIC Naloxegol 25 mg 06/21/25 12:12 Naloxegol Oxalate 25 Mg Tablet (Non-Formulary) PO 07/20/25 15:44 ACBR PRN constipation Nortriptyline HCl 25 mg 06/18/25 21:00 06/21/25 20:29 Nortriptyline Hcl 25 Mg Capsule PO 07/18/25 20:59 25 mg HS ERIC Administration Ondansetron HCl 4 mg 06/15/25 01:46 06/18/25 10:54 Ondansetron Inj 2 Mg/Ml Inj 2 Ml IVP 07/15/25 01:45 4 mg Q6H PRN Administration NAUSEA OR VOMITING Protocol Pharmacy Consult 1 each 06/15/25 09:00 Vancomycin Pharmacy To Dose 1 Each Each IV 07/15/25 08:59 QDAY PRN PROTOCOL Sennosides 1 tab 06/21/25 12:12 Senna Tablet PO 07/20/25 10:29 QDAY PRN constipation Protocol Vitamin B Complex/Vit C/Folic Acid 1 tab 06/18/25 09:00 06/21/25 09:56 Vitamin B Complex Tablet PO 07/18/25 08:59 Not Given QDAY ERIC Plan 65M with PMHx significant for ESRD (on dialysis T//Sun) with Dr. Chadwick, diabetes, CRISTIANO, BPH, gastric bypass presents from SNF with left hip pain s/p ground-level fall admitted for left hip fracture and possible pneumonia. #Left hip intertrochanteric fracture #Right hip greater trochanter fracture #First coccygeal segment fracture #Right first sacral wing fracture Patient had a ground-level fall without loc. CT imaging confirmed left hip fracture. Head CT negative. Patient initially in pain, relieved with morphine. MRI shows acute intertrochanteric fracture left hip without significant displacement Cleared by cardiology for surgery. Ct of bilateral hips revealed acute comminuted intertrochanteric fracture left hip and acute fracture greater trochanter right hip which does extend into the intertrochanteric region right hip, without significant displacement POD#5: Patient is now S/P bilateral hip cephalomedullary nails. Patient tolerated the procedure well and is in stable condition. Overnight, patient was found to be hypotensive with MAP of 61. 250cc bolus of LR was given and atenolol was hold. Blood pressure did not improve and rapid was called around 2200 for hypotension of 80s/50s and MAP of 60. Patient was asymptomatic. Home midodrine was resumed and albumin 25 was given due to low albumin. Patient was found to have Hgb of 7.8. thus 1x PRBC was given. Blood pressure has improved to 126/60. Lactate improved to 1.0. Plan: - Patient is ready to be discharged from orthopedic standpoint - Continue home Midodrine - ASA 81 BID - WBAT - PT/OT - [place] 5/325 mg PO q6h PRN - Patient needs to follow up with Dr. Thomas outpatient in 2 weeks #Sepsis - resolved #Bibasilar CAP #Left Lung pneumonia #Right upper lobe pneumonia Leukocytosis now up trending from 11.2 on admission to 20.1. Lactic acid, Pro-Guero, UA negative. Imaging shows vascular congestion, bibasilar PNA Sofa score 2. Negative rapid flu/covid Initial blood cx negative. Given crackles and rhonchi on exam today (06/22) and leukocytosis, repeat chest xray, blood cultures were ordered. Patient remains afebrile. Patient has finished a course of Zosyn and has been on Vancomnycin since 06/22. Up-trending leukocytosis could be related to pneumonia vs reactvie to recent surgery. Repeat chest xray from today (06/22) shows diffuse left lung pneumonia with layering left pleural fluid and pneumonia of the right upper lobe. US shows mild left sided pleural effusion. Plan: - Discontinue Vancomycin - Finished Zosyn (06/15-06/22) - Start Doxycyclin IV 100 BID for pneumonia - Incentive spirometry -Pending blood culture #Abdominal pain - resolved While receiving dialysis patient reported diffuse abdominal pain with tenderness to palpation on exam and hypoactive bowel sounds. Patient has had bowel movements earlier. KUB was ordered which showed Nonobstructive bowel gas pattern. Patient had multiple bowel movements since scheduling bowel regimen Plan: -Made bowel regimen PRN instead of scheduled #ESRD on HD (//Sun) #Anasarca Follows with hand striper Dr. Chadwick. Cr 3.1 Albumin 2.1 Plan: - Dialysis tomorrow - Renally dose medications - Strict i and o #Chronic sinus tachycardia (Resolved) #Hypotension (Resolved) Improved sinus tachycardia to 77 Cardiology was consulted. Plan: - Continue home Midodrine - Held atenolol 25 mg BID for episode of hypotension #Acute liver injury - resolved #Transaminitis - resolved #Elevated alk phos Elevated alk phos most likely 2/[address] showed cirrhosis, mild ascites, distended gallbladder. In regards to gallbladder, patient is asymptomatic and denies any symptoms with eating. Plan: - CTM - Avoid hepatotoxins #Diabetes Patient takes insulin as needed for significantly elevated blood sugar, which he reports is rare. UA 3+ glucose, 1+ protein A1C 5.4 Plan: - ISS #CRISTIANO Patient has history of obstructive sleep apnea. Plan: - BiPAP as needed at bedtime #Normocytic normochromic anemia Most likely secondary to ESRD Recent drop of Hgb is most likely due to blood loss during surgery. PRBC 1x given. Hgb stable now at 11.7 Plan: - Follow H&H - CTM with daily CBC #Hypomagnesemia Plan: - CTM -Replete as needed Dispo: b/l hip pain mgmt s/p surgery, CAP management DVT prophylaxis: ASA 81 BID GI prophylaxis: None Bowel reg: Docusate, Senna PRN Diet: Renal Pain mgmt: Tylenol Lines: Dialysis port Code status: DNR Plan discussed with Dr. Hanna and Dr. Susan Araujo DO PGY-1 Attending Provider Attestation/Addendum Kathrine, Mikayla Davis DO, attest that I was physically present for the lerma portions of the service and evaluated the patient with the resident and I reviewed and discussed the case with the resident and agree with the resident's findings and plans of care as documented above Patient seen and eval this a.m. Patient states he is feeling well. He had a large bowel movement yesterday and has no active complaints at this time. Leukocytosis has been uptrending. He appears to have worsening swelling in bilateral extremities and upper extremities. This is likely secondary to the fact that he did not complete dialysis on Sunday due to his pain. He currently reports improvement of pain control. Will obtain blood cultures and chest x-ray to rule out any other sources of infection. He is otherwise afebrile and remains on Zosyn. Will switch to doxycycline to cover for atypical pneumonia.
[2025-06-22 08:28] LABS: Basophils # (Auto) 0.1 Thou/mm3 (0.0-0.2); Basophils % (Auto) 0 % (0-2.5); Eosinophils # (Auto) 0.3 Thou/mm3 (0.0-0.5); Eosinophils % (Auto) 1 % (0-10); Hematocrit 35.3 % (41.0-53.0); Hemoglobin 11.7 g/dL (13.5-16.0); Immature Granulocytes Auto 0.10 Thou/mm3 (0.00-0.00); Lymphocytes # (Auto) 1.6 Thou/mm3 (1.0-4.8); Lymphocytes % (Auto) 8 % (10-50); Mean Corpuscular HGB Conc 33.1 g/dl (31.0-37.0); Mean Corpuscular Hemoglobin 32.4 pg (25.0-35.0); Mean Corpuscular Volume 98 fL (80-100); Monocytes # (Auto) 0.4 Thou/mm3 (0.0-0.8); Monocytes % (Auto) 2 % (0-12); Neutrophils # (Auto) 17.6 Thou/mm3 (1.8-7.7); Neutrophils % (Auto) 88 % (37-80); Nucleated Red Blood Cell # 0.04 Thou/mm3 (0.00-0.00); Nucleated Red Blood Cell % 0 /100 WBC (0); Platelet Count 101 Thou/mm3 (140-440); RDW Standard Deviation 55.0 fL (35.1-43.9); Red Blood Count 3.61 Miln/mm3 (4.50-5.90); White Blood Count 20.1 Thou/mm3 (3.8-10.6)
[2025-06-22] MEDS: PIPER/TAZO INJ 4.5 GM in SODIUM CHLORIDE 0.9% (POP) 100 ML IV (08:51)
[2025-06-22] MEDS: VITAMIN B COMPLEX TABLET 1 TAB PO (08:52)
[2025-06-22] MEDS: ASPIRIN EC 81 MG TABEC PO ×2 (08:52→20:31)
--- NOTE | 2025-06-22 10:01 | XR_ITS ---
Examination: AP chest single view Technique one AP portable supine chest single view June 22, 2025 1022 hours INDICATIONS: Abnormal breast sounds on auscultation FINDINGS: Diffuse left lung pneumonia with layering left pleural fluid Pneumonia in the right upper lobe. No significant cardiac enlargement Right internal jugular dialysis catheter tip satisfactory position IMPRESSION: Diffuse left lung pneumonia with layering left pleural fluid Pneumonia right upper lobe
--- NOTE | 2025-06-22 10:06 | ESPR_ITS ---
Documentation for date of: 06/22/25 Subjective Subjective Interval history: Mr. Gonzalez is a 65 y/o M with PMHx significant for ESRD (//Sun) with Dr. Chadwick at [facility], diabetes, CRISTIANO, BPH, gastric bypass presents from SNF with left hip pain s/p ground-level fall with witnessed head strike. Pt states that he was standing, and while bending down to lower his pants to use the restroom, he started to fall forward. His nurse was with him and tried to catch him but they both fell to the ground. no LOC. He landed on his Left side. Found to have bilateral hip fractures and L femur fracture on xray and CT, and MRI Interval History 06/15/2025 Nephorology consulted for ESRD on TTS HD. patient seen and examined at bedside. reports that he has been attending HD regularly at [facility]. He states that he has L hip and femur fracture with plan for surgery this sunday, 06/[address] Thomas. On exam, he has BUE edema in the forearms to elbow, with RUE contusions on forearm 2/2 needle sticks not his ground level fall. He has nl work of breathing, tachycardic on exam to 120s. He has catheter on R chest for HD. Cr. 2.3 from 2.1 BUN 15 from 13. He states that he is pending a fistula on the LUE. Plan for HD 06/16 prior to surgery on 06/17. 06/16/2025: Patient seen and examined in HD. (TTS) reports that he lost his L glove that he wears because his hands are offten cold. Pt states that his pain is well controlled and that he has no new concerns. Of note MRI machine is down, query whether pt has bilateral hip fractures. On exam pt has nl work of breathing, pt remains tachycardic to 130s, Cr 2.6 from 2.3, BUN 16 from 15. tolerating HD well. Plan for surgery tomorrow with Dr. Thomas for multiple fractures. 06/18/2025: Patient had 2 rapid responses called for hypotension yesterday (17:10 and 22:47, 06/17). During the 1st RR, patient had their atenolol held and was given a 250 mL LR bolus. During the 2nd RR, patient had their home Midodrine resumed, given IV albumin, and given 1 L LR bolus. Patient seen and examined at bedside; they report feeling generally well today with no new complaints or concerns. Notable labs today include: Hgb 8.2, creatinine bump to 2.5 from 2.2, eGFR drop to 28 from 33, lactic acid drop to 1.0 from 2.6, AST bump to 167 from 28, ALT bump to 97 from 29, alkaline phosphatase bump to 448 from 388. From nephrology's standpoint, patient will be receiving HD today. 06/19/2025: No overnight events. Patient seen and examined at bedside; they report feeling generally well today with no new complaints or concerns. Patient will be discharged today and follow-up for hemodialysis in the outpatient setting. 06/20/2025: No overnight events. Patient seen and examined at bedside while on hemodialysis; he complains of new generalized abdominal pain and a marked pain response is elicited upon palpation of any abdominal quadrant. There is also an absence of bowel sounds on abdominal auscultation. No labs were drawn for the patient today which this director underwriter sales assumes is due to the fact that he was planned to be discharged yesterday. The primary care team has ordered an abdominal X- ray which showed a nonobstructive bowel gas pattern. From nephrology's standpoint, he will be receiving urgent hemodialysis today (ongoing at time of interview). 06/21/2025. Patient seen and examined at bedside. He had HD yesterday per his usual schedule T/T/S, HD was stopped early yesterday 2/2 abdominal pain. Today pt reports having a BM and no more abdominal pain. On exam, pt has some trace pitting of BLE, abdomen is soft NTND. no labs drawn today. 06/22/2025: Patient seen and examined at bedside. Pt continues to report mild abdominal pain, on exam there is mild tenderness. KUB done yesterday was unremarkable, no obstructive pattern. On exam there is trace pitting BLE, WBC 20 from 18, BUN 30, Cr 3.1, no hd today. ok to d/c from nephrology standpoint, HD per regular schedule TTS, dispo pending per primary team Exam Vital Signs Temp Pulse Resp BP Pulse Ox O2 Del Method O2 Flow Rate 97.4 F 99 18 109/72 95 Room Air 1 06/22/25 08:00 06/22/25 08:00 06/22/25 08:00 06/22/25 08:00 06/22/25 08:00 06/22/25 08:00 06/22/25 04:00 Narrative Exam GENERAL: A&O x3, laying in HD bed HEENT: Head AT/ NC. Mucous membranes moist. CARDIOVASCULAR: tachycardic to 100s. Normal S1/S2, No m/r/g. LLE 1+ edema to mid hernandez, RLE with skin wrinkling, trace edema skin . BUE with edema to elbows, query lymphedema? R HD catheter RESPIRATORY: nl work of breathing . some inspiratory wheezing on exam GASTROINTESTINAL:Abdomen soft, ND, mildly tender to epigastrum, BS present, no palpable masses. MUSCULOSKELETAL:? No cyanosis, no visible joint swelling. NEUROLOGICAL: CN II-XII grossly intact. No focal deficits. Sensation intact, symmetric. speech is slow. PSYCHIATRIC: Awake and alert, not agitated, affect is flat. SKIN: RUE contusions violacious, on dorsal forearm. Objective Labs 06/22/25 07:37 06/22/25 05:58 Labs: Laboratory Results - last 24 hr 06/21/25 06/21/25 06/22/25 16:38 22:09 05:58 WBC 18.4 H RBC 2.76 L Hgb 8.8 L D Hct 26.7 L MCV 97 MCH 31.9 MCHC 33.0 RDW Std Deviation 54.4 H Plt Count 240 D Neut % (Auto) 87 H Lymph % (Auto) 7 L [place] % (Auto) 5 Eos % (Auto) 1 Baso % (Auto) 0 Neut # (Auto) 16.0 H Lymph # (Auto) 1.3 [place] # (Auto) 0.8 Eos # (Auto) 0.1 Baso # (Auto) 0.0 Immature Gran # (Auto) 0.14 H Absolute Nucleated RBC 0.04 H Immature Gran % 1 H Nucleated RBC % 0 Sodium 137 135 L Potassium 3.6 3.3 L Chloride 99 99 Carbon Dioxide 26.1 24.4 Anion Gap 12 12 BUN 28 H 30 H Creatinine 3.0 H 3.1 H Estim Creat Clear Calc 26.5 L 25.7 L eGFR 22 L 22 L BUN/Creatinine Ratio 9 L 10 L Glucose 196 H 178 H Calculated Osmolality 284 280 Calcium 8.7 8.3 Corrected Calcium 10.1 10.1 Phosphorus 3.8 3.8 Magnesium 2.0 1.7 Total Bilirubin 0.9 0.8 AST 22 13 ALT 38 27 Alkaline Phosphatase 358 H D 297 H D Total Protein 4.6 L 4.0 L Albumin 2.3 L 1.8 L D Globulin 2.3 2.2 L Albumin/Globulin Ratio 1.0 L 0.8 L Random Vancomycin 19.2 06/22/25 07:37 WBC 20.1 H RBC 3.61 L Hgb 11.7 L D Hct 35.3 L MCV 98 MCH 32.4 MCHC 33.1 RDW Std Deviation 55.0 H Plt Count 101 L D Neut % (Auto) 88 H Lymph % (Auto) 8 L [place] % (Auto) 2 Eos % (Auto) 1 Baso % (Auto) 0 Neut # (Auto) 17.6 H Lymph # (Auto) 1.6 [place] # (Auto) 0.4 Eos # (Auto) 0.3 Baso # (Auto) 0.1 Immature Gran # (Auto) 0.10 H Absolute Nucleated RBC 0.04 H Immature Gran % 1 H Nucleated RBC % 0 Sodium Potassium Chloride Carbon Dioxide Anion Gap BUN Creatinine Estim Creat Clear Calc eGFR BUN/Creatinine Ratio Glucose Calculated Osmolality Calcium Corrected Calcium Phosphorus Magnesium Total Bilirubin AST ALT Alkaline Phosphatase Total Protein Albumin Globulin Albumin/Globulin Ratio Random Vancomycin Quality Measures Quality Measures VTE prophylaxis Assessment & Plan Assessment Current Active Medications: Generic Name Dose Route Start Last Admin Trade Name Freq PRN Reason Stop Dose Admin Acetaminophen 650 mg 06/15/25 08:49 06/21/25 05:13 Acetaminophen 325 Mg Tablet PO 07/15/25 01:45 650 mg Q6H PRN Administration Fever >100.4 or pain 1-3 Hydrocodone Bitart/Acetaminophen 1 tab 06/21/25 13:12 06/21/25 20:29 Hydrocodone/Apap 5/325 Tablet PO 06/26/25 13:11 1 tab Q6HR PRN Administration PAIN 4-6 Aspirin 81 mg 06/20/25 21:00 06/22/25 08:52 Aspirin Ec 81 Mg Tabec PO 07/20/25 20:59 81 mg BID ERIC Administration Dextrose 25 ml 06/15/25 03:01 Dextrose 50%-Water Inj 50 Ml Syringe IV 07/15/25 03:00 Q15MIN PRN BG 50-70 responsive npo pt Dextrose 50 ml 06/15/25 03:01 Dextrose 50%-Water Inj 50 Ml Syringe IV 07/15/25 03:00 Q15MIN PRN BG <50 OR BG <70 & pt unresponsive Docusate Sodium 100 mg 06/21/25 12:12 Docusate Sod 100 Mg Capsule PO 07/20/25 10:44 QDAY PRN Constipation Protocol Glucagon 1 mg 06/15/25 03:01 Glucagon Inj 1 Mg Vial IM Q15MIN PRN BG <70, and no IV access Heparin Sodium (Porcine) 5,000 unit 06/15/25 09:00 06/20/25 11:04 Heparin Sod Inj 5000 Unit/Ml Vial SC 06/29/25 08:59 Not Given Q12HR [facility] Heparin Sodium (Porcine) 3,500 unit 06/16/25 08:26 06/16/25 11:08 Heparin Sod Inj 1000 Unit/Ml Vial 10 Ml INDWELLCAT 06/30/25 08:25 3,500 unit X1 PRN Administration DIALYSIS Piperacillin Sod/Tazobactam 100 mls @ 200 mls/hr 06/15/25 21:00 06/22/25 08:51 Sod 4.5 gm/ Sodium Chloride IV 06/22/25 20:59 200 mls/hr Q12HR ERIC Administration Doxycycline Hyclate 100 mg/ 100 mls @ 100 mls/hr 06/22/25 10:15 Sodium Chloride IV 06/29/25 10:14 BID [facility] Insulin Human Lispro 0 unit 06/18/25 07:30 06/22/25 08:52 Insulin Lispro (Admelog) 1 Unit/0.01 Ml Unit SC 07/18/25 07:29 Not Given ACHS [facility] Protocol Midodrine 10 mg 06/18/25 09:00 06/22/25 05:44 Midodrine 5 Mg Tablet PO 07/18/25 08:59 Not Given TID [facility] Naloxegol 25 mg 06/21/25 12:12 Naloxegol Oxalate 25 Mg Tablet (Non-Formulary) PO 07/20/25 15:44 ACBR PRN constipation Nortriptyline HCl 25 mg 06/18/25 21:00 06/21/25 20:29 Nortriptyline Hcl 25 Mg Capsule PO 07/18/25 20:59 25 mg HS ERIC Administration Ondansetron HCl 4 mg 06/15/25 01:46 06/18/25 10:54 Ondansetron Inj 2 Mg/Ml Inj 2 Ml IVP 07/15/25 01:45 4 mg Q6H PRN Administration NAUSEA OR VOMITING Protocol Sennosides 1 tab 06/21/25 12:12 Senna Tablet PO 07/20/25 10:29 QDAY PRN constipation Protocol Vitamin B Complex/Vit C/Folic Acid 1 tab 06/18/25 09:00 06/22/25 08:52 Vitamin B Complex Tablet PO 07/18/25 08:59 1 tab QDAY ERIC Administration Plan 65 y/o M with PMHx significant for ESRD (//Sun) with Dr. Chadwick at [facility], hx of R renal kidney removal, well controlled T2DM , CRISTIANO, BPH, gastric bypass presents from SNF with left hip pain s/p ground-level fall admitted for left hip fracture and possible pneumonia. s/p 06/[address] Thomas. pt had abdominal pain on 06/20 that is now resolved, pt had BM, KUB without obstructive pattern. pending dispo per primary team. will continue HD per HD schedule TTS. #ESRD on HD (/) Patient has ESRD as stated. Follows with box attacher Dr. Chadwick at [facility]. Patient has significant anasarca, BUE edema and LLE 1+ edema with RLE trace edema. Albumin 1.8. Plan: - no HD today - Renally dose medications - strict i and o -ok to discharge from nephro perspective. #Normocytic normochromic anemia - likely 2/2 ESRD #abdominal pain- resolving -kub without obstructive pattern -pt had bm this morning #R hip fracture- s/p surgery #Left hip intertrochanteric fracture-s/p surgery #Right hip greater trochanter fracture- s/p surgery #First coccygeal segment fracture #Right first sacral wing fracture #T2DM on insulin PRN Patient history as stated. Patient takes insulin as needed for significantly elevated blood sugar, which he reports is rare. A1c 5.7% as of 12/09/24. AM glucose 167 UA 3+ glucose, 1+ protein -Management as per primary team #Sepsis 2/2 CAP with end organ damage given transaminitis #Bibasilar CAP- on zosyn #Acute liver injury- resolved #CRISTIANO #electrolyte abnormalities- replete as indicated #sinus tachycardia to 130s - query 2/2 pain or dehydration, or CAP infection. - cards consult for cardiac clearance prior to surgery- CLEARED -started atenolol 25 BID #HTN - Management as per primary team. Plan discussed with nephrology attending Dr. Edwin Gonsalves MD Internal Medicine PGY-1 Attending Provider Attestation/Addendum Patient seen and examined with resident physician Dr. Gonsalves. Note reviewed, agree with findings and recommendations. Status post ground-level fall with a left and rt hip fracture. s/p surgery with Dr. Thomas. Abdominal pain much better today. Spoke to primary team-KUB was negative. Will plan for dialysis tomorrow and try to remove excess fluid as patient seems to have fluid in the arms.
[2025-06-22] MEDS: DOXYCYCLINE INJ 100 MG in SODIUM CHLORIDE 0.9% (POP) 100 ML IV ×2 (10:43→20:30)
--- NOTE | 2025-06-22 10:58 | PC.SS ---
SS follow up note; Patient is pending Cultures. Patient will discharge back to [facility] when medically cleared.
--- NOTE | 2025-06-22 11:53 | XR_ITS ---
Examination: Ultrasound right hemithorax Ultrasound left hemithorax Date and time: June 22, 2025 1219 hours INDICATIONS: Difficulty breathing this week, bilateral pleural disease on chest x-ray June 22, 2025 TECHNIQUE AND FINDINGS: Grayscale sonographic images right and left hemithoraces Minimal right pleural fluid Mild left pleural fluid IMPRESSION: Mild left pleural fluid
[2025-06-22] MEDS: MIDODRINE 5 MG TABLET 10 MG PO (14:53)
[2025-06-22] MEDS: NORTRIPTYLINE HCL 25 MG CAPSULE PO (20:30)
[2025-06-22] MEDS: HYDROcodone/APAP 5/325 TABLET 1 TAB PO (20:30)
[2025-06-23] VITALS (20 sets, daily range): BP systolic 100–182; BP diastolic 58–95; PULSE 90–128; RESP 15–28; TEMP 36.5–37.1; O2SAT 94–99; BMI 12.0
--- NOTE | 2025-06-23 05:21 | PC.NURSE ---
Pt's BP 179/82, was made aware. No new orders for pt at this time. Pt is resting in bed, pt denies any chest pain or discomfort., denies any headaches.
--- NOTE | 2025-06-23 08:12 | ESPR_ITS ---
<Statement entered by Alex Corley MD - 06/24/25 06:39> Patient was examined and case was reviewed with team including attending physician. Note reviewed, I agree with most of its contents and agree with the patient's care. Alex Corley MD PGY-2 Documentation for date of: 06/23/25 Subjective Subjective Interval history: 06/23/25: Overnight patient was noted to have tachycardia of 100 with BP of 179/82, saturating 99% on RA. Patient denies any shortness of breath, subjective fever or hip pain. Patient reports having regular bowel movements. Exam Vital Signs Temp Pulse Resp BP Pulse Ox O2 Del Method O2 Flow Rate 98.0 F 100 28 H 179/82 H 99 Room Air 1 06/23/25 04:00 06/23/25 06:50 06/23/25 04:00 06/23/25 06:50 06/23/25 04:00 06/22/25 16:00 06/22/25 04:00 Narrative Exam General: Laying comfortably in bed, in no acute distress. Eye: EOMI, normal conjunctiva, no scleral icterus HENT: Normocephalic, atraumatic, normal hearing, moist oral mucosa Neck: Supple, non-tender, no JVD, no lymphadenopathy Lungs: RHonchi noted in L lung field and coarse crackles in right upper melgar, non-labored respirations, symmetric chest rise, no use of accessory muscles. Saturating 95% at RA. Heart: Regular rate. Normal S1 and S2, no S3 or S4 appreciated. Normal rate and regular rhythm, no murmurs, rubs gallops, or edema. Peripheral pulses intact bilaterally, capillary refill brisk distally. Right chest dialysis catheter in place. Abdomen: Soft, nontender, non-distended, hyperactive bowel sounds. Musculoskeletal: Bilateral hips' dressing were changed with no active bleeding. Surgical sites are clean, dry and intact. Neurologic: AOx3. No focal neuro deficits. EXT: bilateral edema of the feet noted Psychiatric: Cooperative, appropriate mood and affect Objective Labs 06/23/25 08:39 06/23/25 08:39 Labs: Laboratory Results - last 24 hr 06/22/25 07:37 WBC 20.1 H RBC 3.61 L Hgb 11.7 L D Hct 35.3 L MCV 98 MCH 32.4 MCHC 33.1 RDW Std Deviation 55.0 H Plt Count 101 L D Neut % (Auto) 88 H Lymph % (Auto) 8 L [place] % (Auto) 2 Eos % (Auto) 1 Baso % (Auto) 0 Neut # (Auto) 17.6 H Lymph # (Auto) 1.6 [place] # (Auto) 0.4 Eos # (Auto) 0.3 Baso # (Auto) 0.1 Immature Gran # (Auto) 0.10 H Absolute Nucleated RBC 0.04 H Immature Gran % 1 H Nucleated RBC % 0 Quality Measures Quality Measures VTE prophylaxis Assessment & Plan Assessment Current Active Medications: Generic Name Dose Route Start Last Admin Trade Name Freq PRN Reason Stop Dose Admin Acetaminophen 650 mg 06/15/25 08:49 06/21/25 05:13 Acetaminophen 325 Mg Tablet PO 07/15/25 01:45 650 mg Q6H PRN Administration Fever >100.4 or pain 1-3 Hydrocodone Bitart/Acetaminophen 1 tab 06/21/25 13:12 06/22/25 20:30 Hydrocodone/Apap 5/325 Tablet PO 06/26/25 13:11 1 tab Q6HR PRN Administration PAIN 4-6 Aspirin 81 mg 06/20/25 21:00 06/22/25 20:31 Aspirin Ec 81 Mg Tabec PO 07/20/25 20:59 81 mg BID ERIC Administration Dextrose 25 ml 06/15/25 03:01 Dextrose 50%-Water Inj 50 Ml Syringe IV 07/15/25 03:00 Q15MIN PRN BG 50-70 responsive npo pt Dextrose 50 ml 06/15/25 03:01 Dextrose 50%-Water Inj 50 Ml Syringe IV 07/15/25 03:00 Q15MIN PRN BG <50 OR BG <70 & pt unresponsive Docusate Sodium 100 mg 06/21/25 12:12 Docusate Sod 100 Mg Capsule PO 07/20/25 10:44 QDAY PRN Constipation Protocol Glucagon 1 mg 06/15/25 03:01 Glucagon Inj 1 Mg Vial IM Q15MIN PRN BG <70, and no IV access Heparin Sodium (Porcine) 5,000 unit 06/15/25 09:00 06/20/25 11:04 Heparin Sod Inj 5000 Unit/Ml Vial SC 06/29/25 08:59 Not Given Q12HR [facility] Heparin Sodium (Porcine) 3,500 unit 06/16/25 08:26 06/16/25 11:08 Heparin Sod Inj 1000 Unit/Ml Vial 10 Ml INDWELLCAT 06/30/25 08:25 3,500 unit X1 PRN Administration DIALYSIS Doxycycline Hyclate 100 mg/ 100 mls @ 100 mls/hr 06/22/25 10:15 06/22/25 20:30 Sodium Chloride IV 06/29/25 10:14 100 mls/hr BID ERIC Administration Insulin Human Lispro 0 unit 06/18/25 07:30 06/22/25 21:45 Insulin Lispro (Admelog) 1 Unit/0.01 Ml Unit SC 07/18/25 07:29 Not Given ACHS ERIC Protocol Midodrine 10 mg 06/18/25 09:00 06/23/25 06:50 Midodrine 5 Mg Tablet PO 07/18/25 08:59 Not Given TID ERIC Naloxegol 25 mg 06/21/25 12:12 Naloxegol Oxalate 25 Mg Tablet (Non-Formulary) PO 07/20/25 15:44 ACBR PRN constipation Nortriptyline HCl 25 mg 06/18/25 21:00 06/22/25 20:30 Nortriptyline Hcl 25 Mg Capsule PO 07/18/25 20:59 25 mg HS ERIC Administration Ondansetron HCl 4 mg 06/15/25 01:46 06/18/25 10:54 Ondansetron Inj 2 Mg/Ml Inj 2 Ml IVP 07/15/25 01:45 4 mg Q6H PRN Administration NAUSEA OR VOMITING Protocol Sennosides 1 tab 06/21/25 12:12 Senna Tablet PO 07/20/25 10:29 QDAY PRN constipation Protocol Vitamin B Complex/Vit C/Folic Acid 1 tab 06/18/25 09:00 06/22/25 08:52 Vitamin B Complex Tablet PO 07/18/25 08:59 1 tab QDAY ERIC Administration Plan 65M with PMHx significant for ESRD (on dialysis T//Sun) with Dr. Chadwick, diabetes, CRISTIANO, BPH, gastric bypass presents from SNF with left hip pain s/p ground-level fall admitted for left hip fracture and possible pneumonia. #Left hip intertrochanteric fracture #Right hip greater trochanter fracture #First coccygeal segment fracture #Right first sacral wing fracture Patient had a ground-level fall without loc. CT imaging confirmed left hip fracture. Head CT negative. MRI shows acute intertrochanteric fracture left hip without significant displacement. CT of bilateral hips revealed acute comminuted intertrochanteric fracture left hip and acute fracture greater trochanter right hip which does extend into the intertrochanteric region right hip, without significant displacement. Cleared by cardiology for surgery. POD#6: Patient is now S/P bilateral hip cephalomedullary nails. Patient tolerated the procedure well and is in stable condition. Surgical sites' dressing were changed. Surgical sites are clean, dry and intact. Plan: - Patient is ready to be discharged from orthopedic standpoint - Continue home Midodrine - ASA 81 BID - WBAT - PT/OT - Austin 5/325 mg PO q6h PRN - Patient needs to follow up with Dr. Thomas outpatient in 2 weeks #Sepsis - resolved #Bibasilar CAP #Left Lung pneumonia #Right upper lobe pneumonia Initially resolved. Leukocytosis now up trending from 11.2 on admission to 24.1 Lactic acid, Pro-Guero, UA negative with imaging studies showing vascular congestion, bibasilar PNA, Sofa score 2 on admission. Negative rapid flu/covid. Initial blood cx negative. Given crackles and rhonchi on exam (06/22) and up-trending leukocytosis, repeat chest xray, blood cultures were ordered which showed diffuse left lung pneumonia with layering left pleural fluid and pneumonia of the right upper lobe. US shows mild left sided pleural effusion. Patient remains afebrile. Patient has finished a course of Zosyn and has been on Vancomnycin since 06/22. This could be related to pneumonia vs reactive to recent surgery. Plan: - Discontinue Vancomycin - Finished Zosyn (06/15-06/22) - Continue Doxycyclin IV 100 BID for pneumonia - Incentive spirometry - Pending blood culture #Abdominal pain - resolved While receiving dialysis patient reported diffuse abdominal pain with tenderness to palpation on exam and hypoactive bowel sounds. Patient has had bowel movements earlier. KUB was ordered which showed Nonobstructive bowel gas pattern. Patient had multiple bowel movements since scheduling bowel regimen Plan: -Made bowel regimen PRN instead of scheduled #ESRD on HD (//Sun) #Anasarca Follows with rn transfer Dr. Chadwick. Cr 3.3 Albumin 2.1 Plan: - Dialysis today - Renally dose medications - Strict i and o #Chronic sinus tachycardia (Resolved) #Hypotension (Resolved) Improved sinus tachycardia to 77 Cardiology was consulted. Plan: - Continue home Midodrine - Held atenolol 25 mg BID for episode of hypotension #Acute liver injury - resolved #Transaminitis - resolved #Elevated alk phos Elevated alk phos most likely 2/[address] showed cirrhosis, mild ascites, distended gallbladder. In regards to gallbladder, patient is asymptomatic and denies any symptoms with eating. Plan: - CTM - Avoid hepatotoxins #Diabetes Patient takes insulin as needed for significantly elevated blood sugar, which he reports is rare. UA 3+ glucose, 1+ protein A1C 5.4 Plan: - ISS #CRISTIANO Patient has history of obstructive sleep apnea. Plan: - BiPAP as needed at bedtime #Normocytic normochromic anemia Most likely secondary to ESRD Recent drop of Hgb is most likely due to blood loss during surgery. PRBC 1x given. Hgb 9.4 Plan: - Follow H&H - CTM with daily CBC #Hypomagnesemia Plan: - CTM -Replete as needed Dispo: b/l hip pain mgmt s/p surgery, CAP management DVT prophylaxis: ASA 81 BID GI prophylaxis: None Bowel reg: Docusate, Senna PRN Diet: Renal Pain mgmt: Tylenol Lines: Dialysis port Code status: DNR Plan discussed with Dr. Hanna and Dr. Susan Araujo DO PGY-1 Attending Provider Attestation/Addendum Mikayla Chisholm DO, attest that I was physically present for the lerma portions of the service and evaluated the patient with the resident and I reviewed and discussed the case with the resident and agree with the resident's findings and plans of care as documented above Patient seen and evaluated this AM. Patient has no acute complaints. He is pending HD today as he has generalized 2+ pitting edema in b/l UE and LE. Case discussed with nephrology to hold antihypertensives as the plan is to remove 3- 3.5L of fluid during HD today. Patient is on doxycycline and zosyn for atypical and GNR PNA. Case discussed with nursing, dressing was changed yesterday. Wound appears clean, dry and intact. Afebrile. Pending repeat cultures due to uptrending leukocytosis
[2025-06-23 08:47] LABS: Basophils # (Auto) 0.1 Thou/mm3 (0.0-0.2); Basophils % (Auto) 0 % (0-2.5); Eosinophils # (Auto) 0.5 Thou/mm3 (0.0-0.5); Eosinophils % (Auto) 2 % (0-10); Hematocrit 28.6 % (41.0-53.0); Hemoglobin 9.4 g/dL (13.5-16.0); Immature Granulocytes Auto 0.18 Thou/mm3 (0.00-0.00); Lymphocytes # (Auto) 1.9 Thou/mm3 (1.0-4.8); Lymphocytes % (Auto) 8 % (10-50); Mean Corpuscular HGB Conc 32.9 g/dl (31.0-37.0); Mean Corpuscular Hemoglobin 32.2 pg (25.0-35.0); Mean Corpuscular Volume 98 fL (80-100); Monocytes # (Auto) 0.7 Thou/mm3 (0.0-0.8); Monocytes % (Auto) 3 % (0-12); Neutrophils # (Auto) 20.7 Thou/mm3 (1.8-7.7); Neutrophils % (Auto) 86 % (37-80); Nucleated Red Blood Cell # 0.04 Thou/mm3 (0.00-0.00); Nucleated Red Blood Cell % 0 /100 WBC (0); Platelet Count 268 Thou/mm3 (140-440); RDW Standard Deviation 55.7 fL (35.1-43.9); Red Blood Count 2.92 Miln/mm3 (4.50-5.90); White Blood Count 24.1 Thou/mm3 (3.8-10.6)
[2025-06-23 09:22] LABS: Alanine Aminotransferase 20 U/L (10-49); Albumin, Serum 2.1 gm/dL (3.4-4.8); Albumin/Globulin Ratio 0.8 (1.2-2.2); Alkaline Phosphatase 325 U/L (46-116); Anion Gap 12 (7-16); Aspartate Amino Transferase 10 U/L (0-34); BUN/Creatinine Ratio 10 Ratio (12-20); Bilirubin,Total 0.9 mg/dL (0.3-1.2); Blood Urea Nitrogen 34 mg/dL (9-23); Calcium 8.9 mg/dL (8.3-10.6); Calcium (Corrected) 10.4 mg/dL (8.5-10.1); Carbon Dioxide 25.4 mMol/L (20.0-31.0); Chloride 97 mMol/L (98-107); Creatinine (Component) 3.3 mg/dL (0.6-1.3); Estimated Creatinine Clearance 24.1 mL/min (>60); Globulin 2.6 gm/dL (2.3-3.5); Glucose 197 mg/dL (74-106); Magnesium 1.6 mg/dL (1.6-2.6); Osmolality,Calculated 280 (275-295); Phosphorous 3.5 mg/dL (2.4-5.1); Potassium 3.0 mMol/L (3.4-5.1); Sodium 134 mMol/L (136-145); Total Protein 4.7 gm/dL (5.7-8.2); Vancomycin,Random 17.8 mcg/mL; eGFR 20 See Note
[2025-06-23] MEDS: DOXYCYCLINE INJ 100 MG in SODIUM CHLORIDE 0.9% (POP) 100 ML IV ×2 (09:33→20:37)
[2025-06-23] MEDS: VITAMIN B COMPLEX TABLET 1 TAB PO (09:33)
[2025-06-23] MEDS: ASPIRIN EC 81 MG TABEC PO ×2 (09:33→20:37)
--- NOTE | 2025-06-23 10:44 | ESPR_ITS ---
Documentation for date of: 06/23/25 Subjective Subjective Interval history: Mr. Gonzalez is a 65 y/o M with PMHx significant for ESRD (//Sun) with Dr. Chadwick at [facility], diabetes, CRISTIANO, BPH, gastric bypass presents from SNF with left hip pain s/p ground-level fall with witnessed head strike. Pt states that he was standing, and while bending down to lower his pants to use the restroom, he started to fall forward. His nurse was with him and tried to catch him but they both fell to the ground. no LOC. He landed on his Left side. Found to have bilateral hip fractures and L femur fracture on xray and CT, and MRI Interval History 06/15/2025 Nephorology consulted for ESRD on TTS HD. patient seen and examined at bedside. reports that he has been attending HD regularly at [facility]. He states that he has L hip and femur fracture with plan for surgery this sunday, 06/[address] Thomas. On exam, he has BUE edema in the forearms to elbow, with RUE contusions on forearm 2/2 needle sticks not his ground level fall. He has nl work of breathing, tachycardic on exam to 120s. He has catheter on R chest for HD. Cr. 2.3 from 2.1 BUN 15 from 13. He states that he is pending a fistula on the LUE. Plan for HD 06/16 prior to surgery on 06/17. 06/16/2025: Patient seen and examined in HD. (TTS) reports that he lost his L glove that he wears because his hands are offten cold. Pt states that his pain is well controlled and that he has no new concerns. Of note MRI machine is down, query whether pt has bilateral hip fractures. On exam pt has nl work of breathing, pt remains tachycardic to 130s, Cr 2.6 from 2.3, BUN 16 from 15. tolerating HD well. Plan for surgery tomorrow with Dr. Thomas for multiple fractures. 06/18/2025: Patient had 2 rapid responses called for hypotension yesterday (17:10 and 22:47, 06/17). During the 1st RR, patient had their atenolol held and was given a 250 mL LR bolus. During the 2nd RR, patient had their home Midodrine resumed, given IV albumin, and given 1 L LR bolus. Patient seen and examined at bedside; they report feeling generally well today with no new complaints or concerns. Notable labs today include: Hgb 8.2, creatinine bump to 2.5 from 2.2, eGFR drop to 28 from 33, lactic acid drop to 1.0 from 2.6, AST bump to 167 from 28, ALT bump to 97 from 29, alkaline phosphatase bump to 448 from 388. From nephrology's standpoint, patient will be receiving HD today. 06/19/2025: No overnight events. Patient seen and examined at bedside; they report feeling generally well today with no new complaints or concerns. Patient will be discharged today and follow-up for hemodialysis in the outpatient setting. 06/20/2025: No overnight events. Patient seen and examined at bedside while on hemodialysis; he complains of new generalized abdominal pain and a marked pain response is elicited upon palpation of any abdominal quadrant. There is also an absence of bowel sounds on abdominal auscultation. No labs were drawn for the patient today which this underwriter mortgage loan assumes is due to the fact that he was planned to be discharged yesterday. The primary care team has ordered an abdominal X- ray which showed a nonobstructive bowel gas pattern. From nephrology's standpoint, he will be receiving urgent hemodialysis today (ongoing at time of interview). 06/21/2025. Patient seen and examined at bedside. He had HD yesterday per his usual schedule T/T/S, HD was stopped early yesterday 2/2 abdominal pain. Today pt reports having a BM and no more abdominal pain. On exam, pt has some trace pitting of BLE, abdomen is soft NTND. no labs drawn today. 06/22/2025: Patient seen and examined at bedside. Pt continues to report mild abdominal pain, on exam there is mild tenderness. KUB done yesterday was unremarkable, no obstructive pattern. On exam there is trace pitting BLE, WBC 20 from 18, BUN 30, Cr 3.1, no hd today. ok to d/c from nephrology standpoint, HD per regular schedule TTS, dispo pending per primary team 06/23/2025: Patient seen and examined at bedside. Pt affect is flat and his mood appears depressed. He endorses mild pain of his left foot. On exam his L foot toes are edematous. BL foot edema with some trace edema to the mid hernandez. Lungs have coarse ronchi in BL lung melgar. likely fluid overloaded given his prior hd session was abreviated 2/2 abdominal pain. Plan for HD today per TTS schedule. Exam Vital Signs Temp Pulse Resp BP Pulse Ox O2 Del Method O2 Flow Rate 98.6 F 99 18 100/70 99 Room Air 1 06/23/25 08:00 06/23/25 08:39 06/23/25 08:39 06/23/25 08:00 06/23/25 08:39 06/23/25 08:00 06/22/25 04:00 Narrative Exam GENERAL: A&O x3, laying in bed HEENT: Head AT/ NC. Mucous membranes moist. CARDIOVASCULAR: tachycardic to 110s. Normal S1/S2, No m/r/g. BLE edema with L foot >R foot edema . BUE with edema to elbows, query lymphedema? R HD catheter RESPIRATORY: nl work of breathing .coarse ronchi and wheezing noted on auscultation GASTROINTESTINAL:Abdomen soft, ND, mildly tender to epigastrum, BS present, MUSCULOSKELETAL:? No cyanosis, no visible joint swelling. NEUROLOGICAL: CN II-XII grossly intact. No focal deficits. Sensation intact, symmetric. speech is slow. PSYCHIATRIC: Awake and alert, not agitated, affect is flat and mood is depressed. SKIN: RUE contusions violacious, on dorsal forearm. Objective Labs 06/23/25 08:39 06/23/25 08:39 Labs: Laboratory Results - last 24 hr 06/23/25 08:39 WBC 24.1 H RBC 2.92 L Hgb 9.4 L D Hct 28.6 L MCV 98 MCH 32.2 MCHC 32.9 RDW Std Deviation 55.7 H Plt Count 268 D Neut % (Auto) 86 H Lymph % (Auto) 8 L Mower % (Auto) 3 Eos % (Auto) 2 Baso % (Auto) 0 Neut # (Auto) 20.7 H Lymph # (Auto) 1.9 Mower # (Auto) 0.7 Eos # (Auto) 0.5 Baso # (Auto) 0.1 Immature Gran # (Auto) 0.18 H Absolute Nucleated RBC 0.04 H Immature Gran % 1 H Nucleated RBC % 0 Sodium 134 L Potassium 3.0 L Chloride 97 L Carbon Dioxide 25.4 Anion Gap 12 BUN 34 H Creatinine 3.3 H Estim Creat Clear Calc 24.1 L eGFR 20 L BUN/Creatinine Ratio 10 L Glucose 197 H Calculated Osmolality 280 Calcium 8.9 Corrected Calcium 10.4 H Phosphorus 3.5 Magnesium 1.6 Total Bilirubin 0.9 AST 10 ALT 20 Alkaline Phosphatase 325 H D Total Protein 4.7 L Albumin 2.1 L Globulin 2.6 Albumin/Globulin Ratio 0.8 L Random Vancomycin 17.8 Quality Measures Quality Measures VTE prophylaxis Assessment & Plan Assessment Current Active Medications: Generic Name Dose Route Start Last Admin Trade Name Freq PRN Reason Stop Dose Admin Acetaminophen 650 mg 06/15/25 08:49 06/21/25 05:13 Acetaminophen 325 Mg Tablet PO 07/15/25 01:45 650 mg Q6H PRN Administration Fever >100.4 or pain 1-3 Hydrocodone Bitart/Acetaminophen 1 tab 06/21/25 13:12 06/22/25 20:30 Hydrocodone/Apap 5/325 Tablet PO 06/26/25 13:11 1 tab Q6HR PRN Administration PAIN 4-6 Aspirin 81 mg 06/20/25 21:00 06/23/25 09:33 Aspirin Ec 81 Mg Tabec PO 07/20/25 20:59 81 mg BID ERIC Administration Dextrose 25 ml 06/15/25 03:01 Dextrose 50%-Water Inj 50 Ml Syringe IV 07/15/25 03:00 Q15MIN PRN BG 50-70 responsive npo pt Dextrose 50 ml 06/15/25 03:01 Dextrose 50%-Water Inj 50 Ml Syringe IV 07/15/25 03:00 Q15MIN PRN BG <50 OR BG <70 & pt unresponsive Docusate Sodium 100 mg 06/21/25 12:12 Docusate Sod 100 Mg Capsule PO 07/20/25 10:44 QDAY PRN Constipation Protocol Epoetin Larry 10,000 unit 06/23/25 14:00 Epoetin Larry-Epbx Inj 10,000 Unit/Ml Vial (Esrd) SC 06/23/25 14:01 X1 ONE Glucagon 1 mg 06/15/25 03:01 Glucagon Inj 1 Mg Vial IM Q15MIN PRN BG <70, and no IV access Heparin Sodium (Porcine) 5,000 unit 06/15/25 09:00 06/20/25 11:04 Heparin Sod Inj 5000 Unit/Ml Vial SC 06/29/25 08:59 Not Given Q12HR ERIC Heparin Sodium (Porcine) 3,500 unit 06/16/25 08:26 06/16/25 11:08 Heparin Sod Inj 1000 Unit/Ml Vial 10 Ml INDWELLCAT 06/30/25 08:25 3,500 unit X1 PRN Administration DIALYSIS Doxycycline Hyclate 100 mg/ 100 mls @ 100 mls/hr 06/22/25 10:15 06/23/25 09:33 Sodium Chloride IV 06/29/25 10:14 100 mls/hr BID ERIC Administration Insulin Human Lispro 0 unit 06/18/25 07:30 06/23/25 08:16 Insulin Lispro (Admelog) 1 Unit/0.01 Ml Unit SC 07/18/25 07:29 Not Given ACHS ERIC Protocol Midodrine 10 mg 06/18/25 09:00 06/23/25 06:50 Midodrine 5 Mg Tablet PO 07/18/25 08:59 Not Given TID ERIC Naloxegol 25 mg 06/21/25 12:12 Naloxegol Oxalate 25 Mg Tablet (Non-Formulary) PO 07/20/25 15:44 ACBR PRN constipation Nortriptyline HCl 25 mg 06/18/25 21:00 06/22/25 20:30 Nortriptyline Hcl 25 Mg Capsule PO 07/18/25 20:59 25 mg HS ERIC Administration Ondansetron HCl 4 mg 06/15/25 01:46 06/18/25 10:54 Ondansetron Inj 2 Mg/Ml Inj 2 Ml IVP 07/15/25 01:45 4 mg Q6H PRN Administration NAUSEA OR VOMITING Protocol Sennosides 1 tab 06/21/25 12:12 Senna Tablet PO 07/20/25 10:29 QDAY PRN constipation Protocol Vitamin B Complex/Vit C/Folic Acid 1 tab 06/18/25 09:00 06/23/25 09:33 Vitamin B Complex Tablet PO 07/18/25 08:59 1 tab QDAY ERIC Administration Plan 65 y/o M with PMHx significant for ESRD (T//Sun) with Dr. Chadwick at [facility], hx of R renal kidney removal, well controlled T2DM , CRISTIANO, BPH, gastric bypass presents from SNF with left hip pain s/p ground-level fall admitted for left hip fracture and possible pneumonia. s/p 06/[address] Thomas. pending dispo per primary team. will continue HD per HD schedule TTS. #ESRD on HD (//Sun) Patient has ESRD as stated. 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 Chadwick at [facility]. pt appears volume overloaded on exam with BLE edema and lungs increased ronchi and wheezing (also could be 2/2 his #CAP, continues on abx) will proceed with HD today with fluid removal BP is elevated today 170s, will reassess after HD, currently holding antihypertensive medications. Plan: - HD today - Renally dose medications - strict i and o - ok to discharge from nephro perspective. #Normocytic normochromic anemia - likely 2/2 ESRD #abdominal pain- resolving -kub without obstructive pattern -pt had bm this morning #R hip fracture- s/p surgery #Left hip intertrochanteric fracture-s/p surgery #Right hip greater trochanter fracture- s/p surgery #First coccygeal segment fracture #Right first sacral wing fracture #T2DM on insulin PRN Patient history as stated. Patient takes insulin as needed for significantly elevated blood sugar, which he reports is rare. A1c 5.7% as of 12/09/24. AM glucose 167 UA 3+ glucose, 1+ protein -Management as per primary team #Sepsis 2/2 CAP with end organ damage given transaminitis #Bibasilar CAP- on zosyn #Acute liver injury- resolved #CRISTIANO #electrolyte abnormalities- replete as indicated #sinus tachycardia to 130s - query 2/2 pain or dehydration, or CAP infection. - cards consult for cardiac clearance prior to surgery- CLEARED -started atenolol 25 BID #HTN - Management as per primary team. Plan discussed with nephrology attending Dr. Edwin Gonsalves MD Internal Medicine PGY-1 Attending Provider Attestation/Addendum Patient seen and examined with resident physician Dr. Gonsalves. Note reviewed, agree with findings and recommendations. Status post ground-level fall with a left and rt hip fracture. s/p surgery with Dr. Thomas. Abdominal pain much better today. Spoke to primary team-KUB was negative. Patient on dialysis. Hemodialysis for 3 hours, 2K, ultrafiltration 2-3 L, Epogen 6000, no heparin ordered. Plan of care discussed with the dialysis nurse. Please see dialysis flowsheet for further details. 2 hours into dialysis patient wants to come off dialysis. Had to be terminated. Will reevaluate again in a.m. if he needs extra session.
--- NOTE | 2025-06-23 14:01 | PC.NURSE ---
Dr. Jacques Corley ordered ernandez catheter removal, however, pt does not have a ernandez catheter in place. Pt uses urinal to void.
[2025-06-23] MEDS: EPOETIN ALFA-EPBX INJ 10,000 UNIT/ML VIAL (ESRD) 10000 UNIT SC (15:50)
[2025-06-23] MEDS: HEPARIN SOD INJ 1000 UNIT/ML VIAL 10 ML 3500 UNIT INDWELLCAT (17:02)
[2025-06-23] MEDS: NORTRIPTYLINE HCL 25 MG CAPSULE PO (20:37)
[2025-06-24] VITALS (14 sets, daily range): BP systolic 114–165; BP diastolic 72–85; PULSE 100–116; RESP 12–21; TEMP 36.3–36.8; O2SAT 90–98
[2025-06-24] MEDS: HYDROcodone/APAP 5/325 TABLET 1 TAB PO (00:23)
--- NOTE | 2025-06-24 08:14 | ESPR_ITS ---
<Statement entered by Destiny Galdamez MD - 06/24/25 17:48> Mr. Gonzalez is a 65-year-old male with past medical history significant for end- stage renal disease on hemodialysis, diabetes, CRISTIANO, BPH, gastric bypass presented to the ED initially with a ground-level fall and admitted for further management of left hip pain. Patient is postop day 6 status post bilateral hip cephalomedullary nails. Today patient had an increase in his white count as well as persistent tachycardia. Due to patient's current immobile status, ordered a venous Doppler bilateral ultrasound which was negative for any DVTs. Will monitor patient's CBC/CMP, anticipate discharge in 24 hours to halfway facility. Patient will continue with aspirin 81 mg twice daily for DVT prophylaxis. Patient seen and examined at bedside. No acute overnight events reported. I discussed with and supervised the international project manager physician who took care of this patient. I personally saw and examined the patient and discussed the assessment and plan with the entire medicine team, including my attending Dr. Davis, I agree with most of the assessment and plan as documented below Destiny Galdamez M.D. PGY-3 Disclaimer: Despite multiple revisions, due to the dictation software being used, the document bellow may not be free of grammatical errors including phonetic/typographic errors. However, this does not deter from our commitment to providing health care in the patient's best interest in mind. Documentation for date of: 06/24/25 Subjective Subjective Interval history: 06/24/25: NAEON. Patient remain afebrile with overnight tachycardia of 108-116, saturating at 96% in RA. Patient refused blood drawn for labs and asked the phlobotomist to return after his breakfast. Patient did not fully complete his dialysis session yesterday similar to the prior session. Patient continues to refuse the phlobotomists to draw blood for today's CBC, CMP, Mg and Phos levels. Patient was evaluated at bedside, mostly sleeping throughout the day. Exam Vital Signs Temp Pulse Resp BP Pulse Ox O2 Del Method O2 Flow Rate 98.0 F 108 H 21 H 124/73 96 Room Air 1 06/24/25 04:00 06/24/25 05:08 06/24/25 04:00 06/24/25 05:08 06/24/25 04:00 06/24/25 04:00 06/22/25 04:00 Narrative Exam General: Laying comfortably in bed, in no acute distress. Sleeping. Eye: EOMI, normal conjunctiva, no scleral icterus HENT: Normocephalic, atraumatic, normal hearing, moist oral mucosa Neck: Supple, non-tender, no JVD, no lymphadenopathy Lungs: Rhonchi noted in L lung field and coarse crackles in right upper melgar, non-labored respirations, symmetric chest rise, no use of accessory muscles. Saturating 95% at RA. Heart: Regular rate. Normal S1 and S2, no S3 or S4 appreciated. Normal rate and regular rhythm, no murmurs, rubs gallops, or edema. Peripheral pulses intact bilaterally, capillary refill brisk distally. Right chest dialysis catheter in place. Abdomen: Soft, nontender, non-distended, hyperactive bowel sounds. Musculoskeletal: Bilateral hips' dressing were changed yesterday with no active bleeding. Surgical sites are clean, dry and intact. Neurologic: AOx3. No focal neuro deficits. EXT: bilateral edema of the feet and hands noted Psychiatric: Cooperative, appropriate mood and affect Objective Labs 06/25/25 05:45 06/25/25 05:45 Labs: Laboratory Results - last 24 hr 06/23/25 08:39 WBC 24.1 H RBC 2.92 L Hgb 9.4 L D Hct 28.6 L MCV 98 MCH 32.2 MCHC 32.9 RDW Std Deviation 55.7 H Plt Count 268 D Neut % (Auto) 86 H Lymph % (Auto) 8 L Oliver % (Auto) 3 Eos % (Auto) 2 Baso % (Auto) 0 Neut # (Auto) 20.7 H Lymph # (Auto) 1.9 Oliver # (Auto) 0.7 Eos # (Auto) 0.5 Baso # (Auto) 0.1 Immature Gran # (Auto) 0.18 H Absolute Nucleated RBC 0.04 H Immature Gran % 1 H Nucleated RBC % 0 Sodium 134 L Potassium 3.0 L Chloride 97 L Carbon Dioxide 25.4 Anion Gap 12 BUN 34 H Creatinine 3.3 H Estim Creat Clear Calc 24.1 L eGFR 20 L BUN/Creatinine Ratio 10 L Glucose 197 H Calculated Osmolality 280 Calcium 8.9 Corrected Calcium 10.4 H Phosphorus 3.5 Magnesium 1.6 Total Bilirubin 0.9 AST 10 ALT 20 Alkaline Phosphatase 325 H D Total Protein 4.7 L Albumin 2.1 L Globulin 2.6 Albumin/Globulin Ratio 0.8 L Random Vancomycin 17.8 Quality Measures Quality Measures VTE prophylaxis Assessment & Plan Assessment Current Active Medications: Generic Name Dose Route Start Last Admin Trade Name Freq PRN Reason Stop Dose Admin Acetaminophen 650 mg 06/15/25 08:49 06/21/25 05:13 Acetaminophen 325 Mg Tablet PO 07/15/25 01:45 650 mg Q6H PRN Administration Fever >100.4 or pain 1-3 Hydrocodone Bitart/Acetaminophen 1 tab 06/21/25 13:12 06/24/25 00:23 Hydrocodone/Apap 5/325 Tablet PO 06/26/25 13:11 1 tab Q6HR PRN Administration PAIN 4-6 Aspirin 81 mg 06/20/25 21:00 06/23/25 20:37 Aspirin Ec 81 Mg Tabec PO 07/20/25 20:59 81 mg BID ERIC Administration Dextrose 25 ml 06/15/25 03:01 Dextrose 50%-Water Inj 50 Ml Syringe IV 07/15/25 03:00 Q15MIN PRN BG 50-70 responsive npo pt Dextrose 50 ml 06/15/25 03:01 Dextrose 50%-Water Inj 50 Ml Syringe IV 07/15/25 03:00 Q15MIN PRN BG <50 OR BG <70 & pt unresponsive Docusate Sodium 100 mg 06/21/25 12:12 Docusate Sod 100 Mg Capsule PO 07/20/25 10:44 QDAY PRN Constipation Protocol Glucagon 1 mg 06/15/25 03:01 Glucagon Inj 1 Mg Vial IM Q15MIN PRN BG <70, and no IV access Heparin Sodium (Porcine) 5,000 unit 06/15/25 09:00 06/20/25 11:04 Heparin Sod Inj 5000 Unit/Ml Vial SC 06/29/25 08:59 Not Given Q12HR ERIC Heparin Sodium (Porcine) 3,500 unit 06/16/25 08:26 06/23/25 17:02 Heparin Sod Inj 1000 Unit/Ml Vial 10 Ml INDWELLCAT 06/30/25 08:25 3,500 unit X1 PRN Administration DIALYSIS Doxycycline Hyclate 100 mg/ 100 mls @ 100 mls/hr 06/22/25 10:15 06/23/25 20:37 Sodium Chloride IV 06/29/25 10:14 100 mls/hr BID ERIC Administration Insulin Human Lispro 0 unit 06/18/25 07:30 06/24/25 07:43 Insulin Lispro (Admelog) 1 Unit/0.01 Ml Unit SC 07/18/25 07:29 Not Given ACHS ERIC Protocol Midodrine 10 mg 06/18/25 09:00 06/24/25 05:08 Midodrine 5 Mg Tablet PO 07/18/25 08:59 Not Given TID ERIC Naloxegol 25 mg 06/21/25 12:12 Naloxegol Oxalate 25 Mg Tablet (Non-Formulary) PO 07/20/25 15:44 ACBR PRN constipation Nortriptyline HCl 25 mg 06/18/25 21:00 06/23/25 20:37 Nortriptyline Hcl 25 Mg Capsule PO 07/18/25 20:59 25 mg HS ERIC Administration Ondansetron HCl 4 mg 06/15/25 01:46 06/18/25 10:54 Ondansetron Inj 2 Mg/Ml Inj 2 Ml IVP 07/15/25 01:45 4 mg Q6H PRN Administration NAUSEA OR VOMITING Protocol Sennosides 1 tab 06/21/25 12:12 Senna Tablet PO 07/20/25 10:29 QDAY PRN constipation Protocol Vitamin B Complex/Vit C/Folic Acid 1 tab 06/18/25 09:00 06/23/25 09:33 Vitamin B Complex Tablet PO 07/18/25 08:59 1 tab QDAY ERIC Administration Plan 65M with PMHx significant for ESRD (on dialysis T//Sun) with Dr. Chadwick, diabetes, CRISTIANO, BPH, gastric bypass presents from SNF with left hip pain s/p ground-level fall admitted for left hip fracture and possible pneumonia. #Left hip intertrochanteric fracture #Right hip greater trochanter fracture #First coccygeal segment fracture #Right first sacral wing fracture Patient had a ground-level fall without loc. CT imaging confirmed left hip fracture. Head CT negative. MRI shows acute intertrochanteric fracture left hip without significant displacement. CT of bilateral hips revealed acute comminuted intertrochanteric fracture left hip and acute fracture greater trochanter right hip which does extend into the intertrochanteric region right hip, without significant displacement. Cleared by cardiology for surgery. POD#6: Patient is now S/P bilateral hip cephalomedullary nails. Patient tolerated the procedure well and is in stable condition. Surgical sites' dressing were changed. Surgical sites are clean, dry and intact. Plan: - Patient is ready to be discharged from orthopedic standpoint - Continue home Midodrine - ASA 81 BID - WBAT - PT/OT - [place] 5/325 mg PO q6h PRN - Patient needs to follow up with Dr. Thomas outpatient in 2 weeks #Sepsis - resolved #Bibasilar CAP #Left Lung pneumonia #Right upper lobe pneumonia Initially resolved. Leukocytosis now up trending from 11.2 on admission to 24.1 Lactic acid, Pro-Guero, UA negative with imaging studies showing vascular congestion, bibasilar PNA, Sofa score 2 on admission. Negative rapid flu/covid. Initial blood cx negative. Given crackles and rhonchi on exam (06/22) and up-trending leukocytosis, repeat chest xray, blood cultures were ordered which showed diffuse left lung pneumonia with layering left pleural fluid and pneumonia of the right upper lobe. US shows mild left sided pleural effusion. Patient remains afebrile. Patient has finished a course of Zosyn and has been on Vancomnycin since 06/22. This could be related to pneumonia vs reactive to recent surgery. US of LEs negative for DVT (06/24) Patient refused blood draw today (06/24) despite multiple attempts by phlobotomists and RNs. Unable to trend WBC and electrolytes. Patient remains afebrile. Plan: - Discontinue Vancomycin - Finished Zosyn (06/15-06/22) - Continue Doxycyclin IV 100 BID for pneumonia - Incentive spirometry - Pending blood culture (Negative at 24 hour jet) #Abdominal pain - resolved While receiving dialysis patient reported diffuse abdominal pain with tenderness to palpation on exam and hypoactive bowel sounds. Patient has had bowel movements earlier. KUB was ordered which showed Nonobstructive bowel gas pattern. Patient had multiple bowel movements since scheduling bowel regimen Plan: -Made bowel regimen PRN instead of scheduled #ESRD on HD (//Sun) #Anasarca Follows with assistant director of plant operations Dr. Chadwick. Cr 3.3 Albumin 2.1 Patient did not fully complete his dialysis session yesterday, similar to the prior session. Bilateral edema of hands and feet noted on exam. Tachycardia noted which could potentially be due to volume overloaded state. Plan: - Dialysis Tomorrow - Renally dose medications - Strict i and o #Chronic sinus tachycardia (Resolved) #Hypotension (Resolved) Improved sinus tachycardia to 77 Cardiology was consulted. Plan: - Continue home Midodrine - Held atenolol 25 mg BID for episode of hypotension #Acute liver injury - resolved #Transaminitis - resolved #Elevated alk phos Elevated alk phos most likely 2/[address] showed cirrhosis, mild ascites, distended gallbladder. In regards to gallbladder, patient is asymptomatic and denies any symptoms with eating. Plan: - CTM - Avoid hepatotoxins #Diabetes Patient takes insulin as needed for significantly elevated blood sugar, which he reports is rare. UA 3+ glucose, 1+ protein A1C 5.4 Plan: - ISS #CRISTIANO Patient has history of obstructive sleep apnea. Plan: - BiPAP as needed at bedtime #Normocytic normochromic anemia Most likely secondary to ESRD Recent drop of Hgb is most likely due to blood loss during surgery. PRBC 1x given. Hgb 9.4 Plan: - Follow H&H - CTM with daily CBC #Hypomagnesemia Plan: - CTM -Replete as needed Dispo: b/l hip pain mgmt s/p surgery, CAP management DVT prophylaxis: ASA 81 BID GI prophylaxis: None Bowel reg: Docusate, Senna PRN Diet: Renal Pain mgmt: Tylenol Lines: Dialysis port Code status: DNR Plan discussed with senior residen Dr. Galdamez and attending physician Dr. Susan Araujo DO PGY-1 Attending Provider Attestation/Addendum Mikayla Chisholm DO, attest that I was physically present for the lerma portions of the service and evaluated the patient with the resident and I reviewed and discussed the case with the resident and agree with the resident's findings and plans of care as documented above Patient seen and evaluated this AM. He states he is well and has no complaints at this time. He remains edematous as he did not want to complete his dialysis session yesterday per nephro. Patient has been tachycardic, suspect due to fluid overload. However, patient is in no respiratory distress and resting comfortably. He denies any pain. He has refused lab draws today. B/l LE doppler negative for DVT. Will f/u CBC, if leukocytosis improving, anticipate DC back to SNF. Patient is otherwise afebrile.
--- NOTE | 2025-06-24 08:38 | XR_ITS ---
Examination: Venous duplex lower extremity sonogram, bilateral. Date and time of exam: June 24, 2025 1253 hours INDICATIONS: Bilateral leg pain after falling one week ago Technique: Multiple sonographic images of the deep venous system have been obtained. B-mode/2-D grayscale imaging of vascular structures and Doppler spectral analysis (waveforms) and color performed Both legs are examined. Findings: Deep venous systems do not demonstrate abnormal echogenicity. All visualized deep veins exhibit compressibility. All visualized deep veins exhibit augmentation. Impression: Negative for deep vein thrombosis
--- NOTE | 2025-06-24 10:16 | PC.NURSE ---
RN assessed new IV insertion to right AC inserted by ultrasound, patient had arm curled up, tape not in place, arm weeping due to edema and IV out. RN discontinued IV and pressure applied at site. Patient tolerated well. Patient declines IV insertion at this time and wants to wait 2 hours before attempting.
[2025-06-24] MEDS: ASPIRIN EC 81 MG TABEC PO ×2 (10:21→20:47)
[2025-06-24] MEDS: DOXYCYCLINE 100 MG TABLET PO ×2 (10:21→20:47)
[2025-06-24] MEDS: VITAMIN B COMPLEX TABLET 1 TAB PO (10:21)
--- NOTE | 2025-06-24 12:54 | ESPR_ITS ---
Documentation for date of: 06/24/25 Subjective Subjective Interval history: Mr. Gonzalez is a 65 y/o M with PMHx significant for ESRD (//Sun) with Dr. Chadwick at [facility], diabetes, CRISTIANO, BPH, gastric bypass presents from SNF with left hip pain s/p ground-level fall with witnessed head strike. Pt states that he was standing, and while bending down to lower his pants to use the restroom, he started to fall forward. His nurse was with him and tried to catch him but they both fell to the ground. no LOC. He landed on his Left side. Found to have bilateral hip fractures and L femur fracture on xray and CT, and MRI Interval History 06/15/2025 Nephorology consulted for ESRD on TTS HD. patient seen and examined at bedside. reports that he has been attending HD regularly at [facility]. He states that he has L hip and femur fracture with plan for surgery this sunday, 06/[address] Thomas. On exam, he has BUE edema in the forearms to elbow, with RUE contusions on forearm 2/2 needle sticks not his ground level fall. He has nl work of breathing, tachycardic on exam to 120s. He has catheter on R chest for HD. Cr. 2.3 from 2.1 BUN 15 from 13. He states that he is pending a fistula on the LUE. Plan for HD 06/16 prior to surgery on 06/17. 06/16/2025: Patient seen and examined in HD. (TTS) reports that he lost his L glove that he wears because his hands are offten cold. Pt states that his pain is well controlled and that he has no new concerns. Of note MRI machine is down, query whether pt has bilateral hip fractures. On exam pt has nl work of breathing, pt remains tachycardic to 130s, Cr 2.6 from 2.3, BUN 16 from 15. tolerating HD well. Plan for surgery tomorrow with Dr. Thomas for multiple fractures. 06/18/2025: Patient had 2 rapid responses called for hypotension yesterday (17:10 and 22:47, 06/17). During the 1st RR, patient had their atenolol held and was given a 250 mL LR bolus. During the 2nd RR, patient had their home Midodrine resumed, given IV albumin, and given 1 L LR bolus. Patient seen and examined at bedside; they report feeling generally well today with no new complaints or concerns. Notable labs today include: Hgb 8.2, creatinine bump to 2.5 from 2.2, eGFR drop to 28 from 33, lactic acid drop to 1.0 from 2.6, AST bump to 167 from 28, ALT bump to 97 from 29, alkaline phosphatase bump to 448 from 388. From nephrology's standpoint, patient will be receiving HD today. 06/19/2025: No overnight events. Patient seen and examined at bedside; they report feeling generally well today with no new complaints or concerns. Patient will be discharged today and follow-up for hemodialysis in the outpatient setting. 06/20/2025: No overnight events. Patient seen and examined at bedside while on hemodialysis; he complains of new generalized abdominal pain and a marked pain response is elicited upon palpation of any abdominal quadrant. There is also an absence of bowel sounds on abdominal auscultation. 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 The primary care team has ordered an abdominal X- ray which showed a nonobstructive bowel gas pattern. From nephrology's standpoint, he will be receiving urgent hemodialysis today (ongoing at time of interview). 06/21/2025. Patient seen and examined at bedside. He had HD yesterday per his usual schedule T/T/S, HD was stopped early yesterday 2/2 abdominal pain. Today pt reports having a BM and no more abdominal pain. On exam, pt has some trace pitting of BLE, abdomen is soft NTND. no labs drawn today. 06/22/2025: Patient seen and examined at bedside. Pt continues to report mild abdominal pain, on exam there is mild tenderness. KUB done yesterday was unremarkable, no obstructive pattern. On exam there is trace pitting BLE, WBC 20 from 18, BUN 30, Cr 3.1, no hd today. ok to d/c from nephrology standpoint, HD per regular schedule TTS, dispo pending per primary team 06/23/2025: Patient seen and examined at bedside. Pt affect is flat and his mood appears depressed. He endorses mild pain of his left foot. On exam his L foot toes are edematous. BL foot edema with some trace edema to the mid hernandez. Lungs have coarse ronchi in BL lung melgar. likely fluid overloaded given his prior hd session was abreviated 2/2 abdominal pain. Plan for HD today per TTS schedule. 06/24/2025: Patient seen and examined at bedside. Affect remains flat and detached, He endorses mild abdominal pain, HD session yesterday was cut short 2/2 patient reporting fatigue and pain. On exam, BLE remain edematous and woody, lungs with some ronchi BL, appears volume overloaded on exam, likely 2/2 to previous sessions being abreviated. pt was offered to have additional HD session today, pt declined. Plan for HD per TTS. Exam Vital Signs Temp Pulse Resp BP Pulse Ox O2 Del Method O2 Flow Rate 98.0 F 108 H 21 H 124/73 96 Room Air 1 06/24/25 04:00 06/24/25 05:08 06/24/25 04:00 06/24/25 05:08 06/24/25 04:00 06/24/25 04:00 06/22/25 04:00 Narrative Exam GENERAL: A&O x3, laying in bed, appears volume overloaded. HEENT: Head AT/ NC. Mucous membranes moist. CARDIOVASCULAR: tachycardic to 100s. Normal S1/S2, No m/r/g. BLE edema with L foot >R foot edema . BUE with edema to elbows, R HD catheter RESPIRATORY: nl work of breathing .coarse ronchi and subtle wheezing noted on auscultation GASTROINTESTINAL:Abdomen soft, ND, mild vague abdominal tenderness, BS present, MUSCULOSKELETAL:? No cyanosis, no visible joint swelling. NEUROLOGICAL: CN II-XII grossly intact. No focal deficits. Sensation intact, symmetric. speech is slow. PSYCHIATRIC: Awake and alert, not agitated, affect is flat and mood is depressed and detached SKIN: RUE contusions violacious, on dorsal forearm. Objective Labs 06/23/25 08:39 06/23/25 08:39 Labs: Laboratory Results - last 24 hr 06/23/25 08:39 WBC 24.1 H RBC 2.92 L Hgb 9.4 L D Hct 28.6 L MCV 98 MCH 32.2 MCHC 32.9 RDW Std Deviation 55.7 H Plt Count 268 D Neut % (Auto) 86 H Lymph % (Auto) 8 L [place] % (Auto) 3 Eos % (Auto) 2 Baso % (Auto) 0 Neut # (Auto) 20.7 H Lymph # (Auto) 1.9 [place] # (Auto) 0.7 Eos # (Auto) 0.5 Baso # (Auto) 0.1 Immature Gran # (Auto) 0.18 H Absolute Nucleated RBC 0.04 H Immature Gran % 1 H Nucleated RBC % 0 Sodium 134 L Potassium 3.0 L Chloride 97 L Carbon Dioxide 25.4 Anion Gap 12 BUN 34 H Creatinine 3.3 H Estim Creat Clear Calc 24.1 L eGFR 20 L BUN/Creatinine Ratio 10 L Glucose 197 H Calculated Osmolality 280 Calcium 8.9 Corrected Calcium 10.4 H Phosphorus 3.5 Magnesium 1.6 Total Bilirubin 0.9 AST 10 ALT 20 Alkaline Phosphatase 325 H D Total Protein 4.7 L Albumin 2.1 L Globulin 2.6 Albumin/Globulin Ratio 0.8 L Random Vancomycin 17.8 Quality Measures Quality Measures VTE prophylaxis Assessment & Plan Assessment Current Active Medications: Generic Name Dose Route Start Last Admin Trade Name Freq PRN Reason Stop Dose Admin Acetaminophen 650 mg 06/15/25 08:49 06/21/25 05:13 Acetaminophen 325 Mg Tablet PO 07/15/25 01:45 650 mg Q6H PRN Administration Fever >100.4 or pain 1-3 Hydrocodone Bitart/Acetaminophen 1 tab 06/21/25 13:12 06/24/25 00:23 Hydrocodone/Apap 5/325 Tablet PO 06/26/25 13:11 1 tab Q6HR PRN Administration PAIN 4-6 Aspirin 81 mg 06/20/25 21:00 06/23/25 20:37 Aspirin Ec 81 Mg Tabec PO 07/20/25 20:59 81 mg BID ERIC Administration Dextrose 25 ml 06/15/25 03:01 Dextrose 50%-Water Inj 50 Ml Syringe IV 07/15/25 03:00 Q15MIN PRN BG 50-70 responsive npo pt Dextrose 50 ml 06/15/25 03:01 Dextrose 50%-Water Inj 50 Ml Syringe IV 07/15/25 03:00 Q15MIN PRN BG <50 OR BG <70 & pt unresponsive Docusate Sodium 100 mg 06/21/25 12:12 Docusate Sod 100 Mg Capsule PO 07/20/25 10:44 QDAY PRN Constipation Protocol Glucagon 1 mg 06/15/25 03:01 Glucagon Inj 1 Mg Vial IM Q15MIN PRN BG <70, and no IV access Heparin Sodium (Porcine) 5,000 unit 06/15/25 09:00 06/20/25 11:04 Heparin Sod Inj 5000 Unit/Ml Vial SC 06/29/25 08:59 Not Given Q12HR ERIC Heparin Sodium (Porcine) 3,500 unit 06/16/25 08:26 06/23/25 17:02 Heparin Sod Inj 1000 Unit/Ml Vial 10 Ml INDWELLCAT 06/30/25 08:25 3,500 unit X1 PRN Administration DIALYSIS Doxycycline Hyclate 100 mg/ 100 mls @ 100 mls/hr 06/22/25 10:15 06/23/25 20:37 Sodium Chloride IV 06/29/25 10:14 100 mls/hr BID ERIC Administration Insulin Human Lispro 0 unit 06/18/25 07:30 06/24/25 07:43 Insulin Lispro (Admelog) 1 Unit/0.01 Ml Unit SC 07/18/25 07:29 Not Given ACHS ERIC Protocol Midodrine 10 mg 06/18/25 09:00 06/24/25 05:08 Midodrine 5 Mg Tablet PO 07/18/25 08:59 Not Given TID ERIC Naloxegol 25 mg 06/21/25 12:12 Naloxegol Oxalate 25 Mg Tablet (Non-Formulary) PO 07/20/25 15:44 ACBR PRN constipation Nortriptyline HCl 25 mg 06/18/25 21:00 06/23/25 20:37 Nortriptyline Hcl 25 Mg Capsule PO 07/18/25 20:59 25 mg HS ERIC Administration Ondansetron HCl 4 mg 06/15/25 01:46 06/18/25 10:54 Ondansetron Inj 2 Mg/Ml Inj 2 Ml IVP 07/15/25 01:45 4 mg Q6H PRN Administration NAUSEA OR VOMITING Protocol Sennosides 1 tab 06/21/25 12:12 Senna Tablet PO 07/20/25 10:29 QDAY PRN constipation Protocol Vitamin B Complex/Vit C/Folic Acid 1 tab 06/18/25 09:00 06/23/25 09:33 Vitamin B Complex Tablet PO 07/18/25 08:59 1 tab QDAY ERIC Administration Plan 65 y/o M with PMHx significant for ESRD () with Dr. Chadwick at [facility], hx of R renal kidney removal, well controlled T2DM , CRISTIANO, BPH, gastric bypass presents from SNF with left hip pain s/p ground-level fall admitted for left hip fracture and possible pneumonia. s/p 06/[address] Thomas. HD sessions have been abreviated, and on exam pt remains volume overloaded. pending dispo per primary team. will continue HD per HD schedule TTS. #ESRD on HD () Patient has ESRD as stated. Follows with outdoor advertising leasing agent Dr. Chadwick at [facility]. pt appears volume overloaded on exam with BLE edema and lungs increased ronchi and wheezing (also could be 2/2 his #CAP, continues on abx) pt HD session 06/23 was abreviated 2/2 pt fatigue and pain. On exam 06/24 pt appears volume overloaded with significant LE edema and congestion on pulm auscultation pt was offered to have extra HD session today to remove additional fluid, pt declined. BP today 160s/80s, better controlled than prior but still elevated. Plan: - no HD today - Renally dose medications - strict i and o - ok to discharge from nephro perspective. #Normocytic normochromic anemia - likely 2/2 ESRD #abdominal pain- resolving -kub without obstructive pattern pt continues to have regular BM #R hip fracture- s/p surgery #Left hip intertrochanteric fracture-s/p surgery #Right hip greater trochanter fracture- s/p surgery #First coccygeal segment fracture #Right first sacral wing fracture #T2DM on insulin PRN Patient history as stated. Patient takes insulin as needed for significantly elevated blood sugar, which he reports is rare. A1c 5.7% as of 12/09/24. AM glucose 163 UA 3+ glucose, 1+ protein -Management as per primary team #Sepsis 2/2 CAP with end organ damage given transaminitis -wbc uptrending #Bibasilar CAP- on zosyn #Acute liver injury- resolved #CRISTIANO #electrolyte abnormalities- replete as indicated #sinus tachycardia - persistent - query 2/2 pain or dehydration, or CAP infection. - cards consult for cardiac clearance prior to surgery- CLEARED -started atenolol 25 BID, HR remains elevated to 110s #HTN - holding antihypertensives. - Management as per primary team. Plan discussed with nephrology attending Dr. Edwin Gonsalves MD Internal Medicine PGY-1 Attending Provider Attestation/Addendum Patient seen and examined with resident physician Dr. Gonsalves. Note reviewed, agree with findings and recommendations. Status post ground-level fall with a left and rt hip fracture. s/p surgery with Dr. Thomas. Abdominal pain much better today. 06/24/2025 patient had incomplete dialysis session yesterday. Still having a fluid overload. But declined dialysis today. Spoke to his sister(Reji Cage) at length in my office who has power of senior attorney. Explained his poor prognosis and failure to thrive and not completing his dialysis sessions. She seems to be understanding and is considering comfort care/hospice after talking to her brother. Spoke to Dr. Davis this morning.
--- NOTE | 2025-06-24 13:41 | PC.NURSE ---
Called Dr. Araujo and informed him that patient refused lab draws for today. No new orders received.
--- NOTE | 2025-06-24 19:15 | PC.NURSE ---
Pt received without IV access,pt has swollen BUE, pt doesnt have a visible vein, Called Shena ICu charge nurse to try and she said to come later.
[2025-06-24] MEDS: NORTRIPTYLINE HCL 25 MG CAPSULE PO (20:47)
[2025-06-25] VITALS (26 sets, daily range): BP systolic 127–234; BP diastolic 71–101; PULSE 99–133; RESP 12–19; TEMP 35.9–37.1; O2SAT 93–99
[2025-06-25] MEDS: HYDROcodone/APAP 5/325 TABLET 1 TAB PO ×3 (00:23→14:59)
--- NOTE | 2025-06-25 03:25 | PC.NURSE ---
RT called for incentive spirometry.
[2025-06-25 06:27] LABS: Basophils # (Auto) 0.1 Thou/mm3 (0.0-0.2); Basophils % (Auto) 0 % (0-2.5); Eosinophils # (Auto) 0.4 Thou/mm3 (0.0-0.5); Eosinophils % (Auto) 2 % (0-10); Hematocrit 25.5 % (41.0-53.0); Immature Granulocytes Auto 0.18 Thou/mm3 (0.00-0.00); Lymphocytes # (Auto) 1.9 Thou/mm3 (1.0-4.8); Lymphocytes % (Auto) 10 % (10-50); Mean Corpuscular HGB Conc 33.7 g/dl (31.0-37.0); Mean Corpuscular Hemoglobin 33.9 pg (25.0-35.0); Mean Corpuscular Volume 100 fL (80-100); Monocytes # (Auto) 1.0 Thou/mm3 (0.0-0.8); Monocytes % (Auto) 5 % (0-12); Neutrophils # (Auto) 15.6 Thou/mm3 (1.8-7.7); Neutrophils % (Auto) 82 % (37-80); Nucleated Red Blood Cell # 0.00 Thou/mm3 (0.00-0.00); Nucleated Red Blood Cell % 0 /100 WBC (0); Platelet Count 246 Thou/mm3 (140-440); RDW Standard Deviation 62.4 fL (35.1-43.9); Red Blood Count 2.54 Miln/mm3 (4.50-5.90); White Blood Count 19.1 Thou/mm3 (3.8-10.6)
[2025-06-25 06:34] LABS: Hemoglobin 8.6 g/dL (13.5-16.0)
[2025-06-25 06:50] LABS: Alanine Aminotransferase 15 U/L (10-49); Albumin, Serum 1.9 gm/dL (3.4-4.8); Albumin/Globulin Ratio 0.7 (1.2-2.2); Alkaline Phosphatase 378 U/L (46-116); Anion Gap 10 (7-16); Aspartate Amino Transferase 24 U/L (0-34); BUN/Creatinine Ratio 11 Ratio (12-20); Bilirubin,Total 0.6 mg/dL (0.3-1.2); Blood Urea Nitrogen 37 mg/dL (9-23); Calcium 8.8 mg/dL (8.3-10.6); Calcium (Corrected) 10.5 mg/dL (8.5-10.1); Carbon Dioxide 26.6 mMol/L (20.0-31.0); Chloride 97 mMol/L (98-107); Creatinine (Component) 3.5 mg/dL (0.6-1.3); Estimated Creatinine Clearance 22.7 mL/min (>60); Globulin 2.6 gm/dL (2.3-3.5); Glucose 174 mg/dL (74-106); Magnesium 1.5 mg/dL (1.6-2.6); Osmolality,Calculated 280 (275-295); Phosphorous 3.9 mg/dL (2.4-5.1); Potassium 3.2 mMol/L (3.4-5.1); Sodium 134 mMol/L (136-145); Total Protein 4.5 gm/dL (5.7-8.2); eGFR 19 See Note
--- NOTE | 2025-06-25 08:02 | PC.NURSE ---
Received call from color television console monitor stating patient HR 160's, RN checked on patient, laying in bed with eyes closed, respirations even and unlabored, HR 114-115 on tele monitor box.
--- NOTE | 2025-06-25 08:16 | ESDS_ITS ---
<Statement entered by Mikayla Davis DO - 06/25/25 17:30> I, Mikayla Davis DO, attest that I was physically present for the lerma portions of the service and evaluated the patient with the resident and I reviewed and discussed the case with the resident and agree with the resident's findings and plans of care as documented above Planned Discharge Date 06/25/25 DS: Providers Provider Date of admission: 06/15/25 01:40 Primary care physician: Physician No Primary/Family Admitting Provider: Dmitry Alexis MD Attending Provider on Admission: Mikayla Davis DO Consults: 06/15/25 01:48 Consult to Orthopedic Routine Comment: L hip fracture Consulting Provider: Ruddy Thomas 06/15/25 01:55 Consult to Nephrology Routine Comment: Hemodialysis Consulting Provider: Lion Pineda 06/15/25 02:05 Referral Registered Dietitian Routine Comment: 06/15/25 02:36 Referral Wound Care Routine Comment: Weeping wounds bilateral upper extremities 06/15/25 08:28 Consult to Cardiology Stat Comment: Needs cardiac clearance for surgery Consulting Provider: Martin Harrington 06/17/25 09:27 Referral Physical Therapy Urgent Comment: Physician Instructions: Referral Physical Therapy Urgent Comment: Physician Instructions: Attending Provider on DC: Dr. Davis Discharging Provider: Resident Winifred Anticipated date of discharge: 06/25/25 DS: Diagnosis Problem List Completed Was Problem List Reviewed/Reconciled?: Yes Hospital Course Hospital Course Hospital course: Dmitry Gonzalez is a 65M with PMHx significant for ESRD (on dialysis T//Sun) with Dr. Chadwick, diabetes, CRISTIANO, BPH, gastric bypass presented from SNF with left hip pain s/p ground-level fall admitted for left hip fracture and possible pneumonia. Patient had a ground-level fall without loc. CTAP imaging confirmed left hip fracture. CT showed cirrhosis, mild ascites, distended gallbladder. In regards to gallbladder, patient is asymptomatic and denies any symptoms with eating. Head CT negative. Patient initially in pain, relieved with morphine. Patient initially was septic with leukocytosis of 14.8 which improved initially however worsened post-op (see below) and remained afebrile. Imaging shows vascular congestion, bibasilar PNA, Sofa score 2, with negative rapid flu/covid which was treated with Vancomycin and Zosyn x7 days. MRI of bilateral hips were ordered which showed acute intertrochanteric fracture left hip without significant displacement. Per radiology recommendation, CT of bilateral hips were ordered which showed acute comminuted intertrochanteric fracture left hip and acute fracture greater trochanter right hip which does extend into the intertrochanteric region right hip, without significant displac ement. Cardiology was consulted who cleared patient for surgery. They were also consulted for sinus tachycardia that was noted which prompted starting Atenolol which was later stopped due to low BP. Orthopedic surgery Dr. Thomas was consulted who then performed bilateral hip cephalomedullary nails for the repair of above fractures. Patient tolerated the procedure well and returned to the floor in sta ble condition. The same day patient was noted to be hypotensive with MAP of 61. 250cc bolus of LR was given and atenolol was hold. Blood pressure did not improve and rapid was called for hypotension of 80s/50s and MAP of 60. Patient was asymptomatic. Home midodrine was resumed and albumin 25 was given due to low albumin. Patient was found to have Hgb of 7.8. thus 1x PRBC was given. Blood pressure has improved to 126/60. Hgb also improved to 10.4. Lactate initially raised to 4.5 but down trended to 1.0. On post-op day 2 patient was preparing to be discharged however while receiving dialysis patient reported diffuse abdominal pain with tenderness to palpation on exam and hypoactive bowel sounds. Patient has had bowel movements earlier. KUB was ordered which showed Nonobstructive bowel gas pattern. Scheduled bowel regimen was ordered which resolved the symptoms and patient started to have regular bowel movement thereafter. Next day patient was noted to have crackles and rhonchi on exam (06/22) and up- trending leukocytosis, repeat chest xray, blood cultures were ordered which showed diffuse left lung pneumonia with layering left pleural fluid and pneumonia of the right upper lobe. US of LE negative for DVT and US of chest showed mild left sided pleural effusion. Leukocytosis of 18.4 which up trended later to 24.1. Patient has already finished a course of vancomycin and zosyn for possible pneumonia on admission. Patient was started on Doxycycilne to cover for atypical pneumonia. Patient remained afebrile with improved physical exam findings and WBC downgraded to 19.1. Patient's condition improved overall with IV antibiotics and will be discharged with PO doxycycline. Blood cultures negative x2. In regards to patient's ESRD on HD, he has refused to complete his last 2 HD sessions. Patient also refused phlobotomists to draw blood from him yesterday. Otherwise patient's electrolyte abnormalities were repleted accordingly and received HD during his hospitalization with Nephrology team management. Patient pain has been controlled and tolerating diet. Vital signs within normal limits. Patient is cleared from ortho standpoint for discharge. All other medical problems were managed accordingly while in the hospital. Patient needs to follow up with Dr. Thomas outpatient in 2 weeks Patient will be prescribed with Doxycycline to be taken for pneumonia and will prescribed pain meds for pain management. Patient's all other medical problems were managed accordingly while in the hospital. Goal directed management of health problem were achieved during patient's hospitalization. On POD#8 patient is in stable condition for discharge. Patient will need to follow up with PCP outpatient within one week. All questions answered and ED return precautions given. #Left hip intertrochanteric fracture #Right hip greater trochanter fracture #First coccygeal segment fracture #Right first sacral wing fracture #Sepsis - resolved #Bibasilar CAP #Left Lung pneumonia #Right upper lobe pneumonia #Abdominal pain - resolved #ESRD on HD (T//Sun) #Anasarca #Chronic sinus tachycardia (Resolved) #Hypotension (Resolved) #Acute liver injury - resolved #Transaminitis - resolved #Elevated alk phos #Diabetes #CRISTIANO #Normocytic normochromic anemia #Hypomagnesemia Follow-up with your primary care physician within 1 week of discharge Follow-up with orthopedic surgery for follow-up of your bilateral hip replacements. You have been prescribed aspirin 81 mg twice a day for DVT prophylaxis. Please take all your medications as prescribed. You have been prescribed Doxycycline 100 mg 2 times a day for 3 more days for treatment of pneumonia. Should your symptoms recur or worsen patient is instructed to return to the ER. Plan discussed with senior residen Dr. Chavez and attending physician Dr. Susan Araujo, DO PGY-1 Status at Discharge Functional status at discharge: wheelchair bound Overall status at discharge: patient is back to baseline Time Spent with Patient Time attestation: Total time spent providing and/or coordinating discharge services: Time spent: Greater than 30 minutes Exam Vital Signs Temp Pulse Resp BP Pulse Ox O2 Del Method O2 Flow Rate 97.9 F 114 H 17 136/82 H 97 Room Air 1 06/25/25 07:53 06/25/25 08:04 06/25/25 07:53 06/25/25 07:53 06/25/25 07:53 06/25/25 07:53 06/25/25 00:00 Discharge Plan Plan Patient Disposition: HOME (Self Care) Patient condition on transfer: Stable Care Plan Goals: Follow-up with your primary care physician within 1 week of discharge Follow-up with orthopedic surgery for follow-up of your bilateral hip rep lacements. You have been prescribed aspirin 81 mg twice a day for DVT prophylaxis. Please take all your medications as prescribed. You have been prescribed Doxycycline 100 mg 2 times a day for 3 more days for treatment of pneumonia. Should your symptoms recur or worsen patient is instructed to return to the ER. Prescriptions/Referrals Prescriptions/Med Rec: New aspirin 81 mg tablet,delayed release (DR/EC) 81 mg PO BID Qty: 60 0RF hydrocodone-acetaminophen 5-325 mg tablet 1 tab PO Q6H MDD 3 PRN (Reason: pain) Qty: 14 0RF doxycycline hyclate 100 mg capsule 100 mg PO BID 3 Days Qty: 6 0RF Continued nortriptyline 25 mg capsule 25 mg PO HS cholecalciferol (vitamin D3) [Vitamin D3] 2,000 UNIT capsule 2,000 unit PO QDAY Qty: 0 vitamin B complex Tablet 1 tab PO QDAY sucralfate 100 mg/mL suspension 10 ml PO Q6H Rx Instructions: FOR PEPTIC ULCER hydroxyzine HCl 10 mg tablet 10 mg PO QPM PRN (Reason: itching) Patient Comments: TAKE 1 TABLET BY MOUTH NIGHTLY midodrine 10 mg Tablet 10 mg PO TID Rx Instructions: HOLD IF SBP>120 insulin aspart U-100 [Novolog FlexPen U-100 Insulin] 100 unit/mL (3 mL) insulin pen 5 unit SUBCUT AC Patient Comments: INJECT 5 UNIT SUBCUTANEOUSLY 3 TIMES A DAY BEFORE MEALS HOLD IF BS<150 alum-mag hydroxide-simeth [Maalox Advanced] 200-200-20 mg/5 mL suspension 10 ml PO QID Qty: 3000 0RF Rx Instructions: administer between meals and at bedtime Discontinued pantoprazole [Protonix] 40 mg tablet,delayed release (DR/EC) 40 mg PO BID Qty: 30 0RF Referrals: No Primary/Family,Physician [Primary Care Provider] - Patient/Caregiver Discharge Instructions Print Language: Yi Stand Alone Forms: [employer] Award Info., Patient Portal Info Letter Discharge Order Discharge Orders: Discharge (Routine); Ordered 06/25/25 Ordered By: Javed Chavez Quality Discharge Quality Measures VTE therapy
[2025-06-25] MEDS: ASPIRIN EC 81 MG TABEC PO ×2 (09:46→20:17)
[2025-06-25] MEDS: Magnesium Sulfate 4 GM Ivpb 4 GM/50 ML BAG IV (09:46)
[2025-06-25] MEDS: VITAMIN B COMPLEX TABLET 1 TAB PO (09:46)
[2025-06-25] MEDS: DOXYCYCLINE 100 MG TABLET PO ×2 (09:46→20:17)
--- NOTE | 2025-06-25 12:13 | PC.NURSE ---
Dr. Chavez on floor, informed him that patient refused K-Dur, Patient states that it webb RN educated patient that it's in pill form, patient states I don't care. . MD states will talk to patient.
--- NOTE | 2025-06-25 13:52 | PC.SS ---
Addendum entered by Ashly Dobbs 06/25/25 15:11: SS follow up note; SS contacted [facility] to set up transportation for patient. Patient is currently in Dialysis and will need an evening ETA. SS set up transportation for 1929. SS notified patient's nurse and patient as well as Neris from [facility]. Addendum entered by Ashly Dobbs 06/25/25 14:52: SS was contacted by [employer] and they informed SS that they are not available to transport patient SS will have Ambulance BRANDY form signed by care integrations director Deysi. Original Note: SS follow up note; SS was informed by patient's nurse Kumar that patient will be discharging today after dialysis. Patient does not have Coverage for transportation. SS contacted [employer] [facility] and they informed SS that will check to see if they have transportation for later time. Patient will discharge after dialysis. SS will stand by for further needs.
--- NOTE | 2025-06-25 14:26 | PD.NEPHPROG ---
Documentation for date of: 06/25/25 Subjective Subjective Interval history: Mr. Gonzalez is a 65 y/o M with PMHx significant for ESRD (//Sun) with Dr. Chadwick at [facility], diabetes, CRISTIANO, BPH, gastric bypass presents from SNF with left hip pain s/p ground-level fall with witnessed head strike. Pt states that he was standing, and while bending down to lower his pants to use the restroom, he started to fall forward. His nurse was with him and tried to catch him but they both fell to the ground. no LOC. He landed on his Left side. Found to have ?bilateral hip fractures and L femur fracture on xray and CT, MRI machine is down. 06/15/2025 Nephorology consulted for ESRD on TTS HD. patient seen and examined at bedside. reports that he has been attending HD regularly at [facility]. He states that he has L hip and femur fracture with plan for surgery this sunday, 06/[address] Thomas. On exam, he has BUE edema in the forearms to elbow, with RUE contusions on forearm 2/2 needle sticks not his ground level fall. He has nl work of breathing, tachycardic on exam to 120s. He has catheter on R chest for HD. Cr. 2.3 from 2.1 BUN 15 from 13. He states that he is pending a fistula on the LUE. Plan for HD 06/16 prior to surgery on 06/17. 06/16/2025: Patient seen and examined in HD. (TTS) reports that he lost his L glove that he wears because his hands are offten cold. Pt states that his pain is well controlled and that he has no new concerns. Of note MRI machine is down, query whether pt has bilateral hip fractures. On exam pt has nl work of breathing, pt remains tachycardic to 130s, Cr 2.6 from 2.3, BUN 16 from 15. tolerating HD well. Plan for surgery tomorrow with Dr. Thomas for multiple fractures. 06/17/2025 patient currently seen medical floor. Comfortable. Going for bilateral hip fracture and fixation with Dr. Thomas today. Did receive dialysis yesterday. Review of Systems Review of Systems Narrative Review of Systems: Denies any chest pain, shortness of breath. Does have swelling in the upper extremities. Denies any nausea, vomiting Exam Vital Signs Temp Pulse Resp BP Pulse Ox O2 Del Method O2 Flow Rate 35.9 C L 122 H 18 190/85 H 94 L Room Air 1 06/25/25 14:07 06/25/25 14:15 06/25/25 14:07 06/25/25 14:15 06/25/25 13:18 06/25/25 12:00 06/25/25 00:00 Narrative Exam GENERAL: A&O x3, laying in bed, appears volume overloaded. HEENT: Head AT/ NC. Mucous membranes moist. CARDIOVASCULAR: tachycardic to 100s. Normal S1/S2, No m/r/g. BLE edema with L foot >R foot edema . BUE with edema to elbows, R HD catheter RESPIRATORY: nl work of breathing .coarse ronchi and subtle wheezing noted on auscultation GASTROINTESTINAL:Abdomen soft, ND, mild vague abdominal tenderness, BS present, MUSCULOSKELETAL:? No cyanosis, no visible joint swelling. NEUROLOGICAL: CN II-XII grossly intact. No focal deficits. Sensation intact, symmetric. speech is slow. PSYCHIATRIC: Awake and alert, not agitated, affect is flat and mood is depressed and detached SKIN: RUE contusions violacious, on dorsal forearm. Objective Labs 06/25/25 05:45 06/25/25 05:45 Labs: Laboratory Results - last 24 hr 06/25/25 06/25/25 05:45 12:45 WBC 19.1 H D RBC 2.54 L Hgb 8.6 L Hct 25.5 L MCV 100 MCH 33.9 MCHC 33.7 RDW Std Deviation 62.4 H Plt Count 246 Neut % (Auto) 82 H Lymph % (Auto) 10 [place] % (Auto) 5 Eos % (Auto) 2 Baso % (Auto) 0 Neut # (Auto) 15.6 H Lymph # (Auto) 1.9 Preston # (Auto) 1.0 H Eos # (Auto) 0.4 Baso # (Auto) 0.1 Immature Gran # (Auto) 0.18 H Absolute Nucleated RBC 0.00 Immature Gran % 1 H Nucleated RBC % 0 Sodium 134 L Potassium 3.2 L Chloride 97 L Carbon Dioxide 26.6 Anion Gap 10 BUN 37 H Creatinine 3.5 H Estim Creat Clear Calc 22.7 L eGFR 19 L BUN/Creatinine Ratio 11 L Glucose 174 H Calculated Osmolality 280 Calcium 8.8 Corrected Calcium 10.5 H Phosphorus 3.9 Magnesium 1.5 L Total Bilirubin 0.6 AST 24 ALT 15 Alkaline Phosphatase 378 H D Total Protein 4.5 L Albumin 1.9 L Globulin 2.6 Albumin/Globulin Ratio 0.7 L Blood Type B Positive Antibody Screen NEGATIVE Crossmatch See Detail Blood Bank Wristband ID Yes Assessment & Plan Assessment and plan (1) Intertrochanteric fracture of both femurs: Status: Acute Additional Assessment & Plan Additional Plan: 65 y/o M with PMHx significant for ESRD (T//Sun) with Dr. Chadwick at [facility], hx of R renal kidney removal, well controlled T2DM , CRISTIANO, BPH, gastric bypass presents from SNF with left hip pain s/p ground-level fall admitted for left hip fracture and possible pneumonia. cards cleared for surgery, pending surgery on 06/[address] Thomas. HD today as per HD schedule. #ESRD on HD (/) Patient has ESRD as stated. Follows with beater room helper Dr. Chadwick at [facility]. Patient has significant anasarca, BUE edema and LLE 1+ edema with RLE trace edema. Albumin 2.8. On 06/15 Cr 2.3 from 2.1, BUN 15 from 13 On 06/16 Cr 2.6 from 2.3, BUN 16 from 15 HD: 06/18 Plan: - HD today Patient currently seen on dialysis. Complaining of pain and [place] was given Hemodialysis for 3 hours, 2K, ultrafiltration 2-3 L, Epogen 6000, no heparin ordered. Plan of care discussed with the dialysis nurse. Please see dialysis flowsheet for further details. 1-1/2-hour into dialysis again he wanted to come off dialysis and terminated. Patient will be discharged today. Recommended to come to the outpatient dialysis treatment and follow-up with Dr. Chadwick. - Renally dose medications - strict i and o #Normocytic normochromic anemia - likely 2/2 ESRD #query R hip fracture? #Left hip intertrochanteric fracture #Right hip greater trochanter fracture #First coccygeal segment fracture #Right first sacral wing fracture MRI machine is down, unable to obtain, - fractures seen on xray and CT. - plan for Surgery with Dr. Thomas 06/17 #T2DM on insulin PRN- well controlled. Patient history as stated. Patient takes insulin as needed for significantly elevated blood sugar, which he reports is rare. A1c 5.7% as of 12/09/24. AM glucose 133 UA 3+ glucose, 1+ protein -managment as per primary team #Sepsis 2/2 CAP with end organ damage given transaminitis #Bibasilar CAP- on vanc and zosyn - renally dose vanc #Acute liver injury #CRISTIANO #electrolyte abnormalities- replete as indicated #sinus tachycardia to 130s - query 2/2 pain or dehydration, or CAP infection. - cards consult for cardiac clearance prior to surgery- CLEARED -started atenolol 25 BID #query HTN - Managment as per primary team. Plan discussed with primary team Quality - progress note Quality Measures Quality Measures: VTE prophylaxis Reason for Continued Stay Reason for Continued Stay: further monitoring
[2025-06-25] MEDS: HEPARIN SOD INJ 1000 UNIT/ML VIAL 10 ML 3500 UNIT INDWELLCAT (16:22)
[2025-06-25] MEDS: EPOETIN ALFA-EPBX INJ 10,000 UNIT/ML VIAL (ESRD) 10000 UNIT SC (16:23)
--- NOTE | 2025-06-25 18:36 | PC.NURSE ---
Called in report to [facility] snf nurse Promise.
[2025-06-25] MEDS: NORTRIPTYLINE HCL 25 MG CAPSULE PO (20:17)
--- NOTE | 2025-06-25 20:30 | PC.NURSE ---
Ambulance personel arrived on unit to picker and packer patient to transfer patient back to [facility]. Belongings were accounted for and IV was taken out before transfering patient back to [facility]. Report was given by day shift and operations supervisor 2nd shift gave report to ambulance personel. Tele box taken off. Patient shows no sign of distress and is aware of return to [facility]
== END 2025-06-25 20:30 | disposition skilled nursing facility (03) | DRG 853 ==
LOC: SERX 06-15 00:57 → SERHOLD 06-15 02:00 → S3NX 06-15 06:37 → SERHOLD 06-15 07:24 → S3NX 06-15 07:24
PROVIDERS: Internal Medicine; Orthopaedic Surgery Adult Reconstructive Orthopaedic Surgery; Student in an Organized Health Care Education/Training Program; Emergency Provider Emergency Medicine; Visit Provider Internal Medicine
PROC: 0QS736Z Reposition Left Upper Femur with Intramedullary Internal Fixation Device, Percutaneous Approach (ICD-10-PCS; CPT 27245; principal; 2025-06-17 15:15)
DX: A41.9 Sepsis, unspecified organism (principal); J15.69 Pneumonia due to other Gram-negative bacteria; S72.141A Displaced intertrochanteric fracture of right femur, initial encounter for closed fracture; N18.6 End stage renal disease; S72.142A Displaced intertrochanteric fracture of left femur, initial encounter for closed fracture; S32.119A Unspecified Zone I fracture of sacrum, initial encounter for closed fracture; E87.20 Acidosis, unspecified; I13.2 Hypertensive heart and chronic kidney disease with heart failure and with stage 5 chronic kidney disease, or end stage renal disease; N39.0 Urinary tract infection, site not specified; R18.8 Other ascites; Z98.84 Bariatric surgery status; N40.0 Benign prostatic hyperplasia without lower urinary tract symptoms; E11.22 Type 2 diabetes mellitus with diabetic chronic kidney disease; W01.0XXA Fall on same level from slipping, tripping and stumbling without subsequent striking against object, initial encounter; G47.33 Obstructive sleep apnea (adult) (pediatric); Z66 Do not resuscitate; E83.42 Hypomagnesemia; I50.9 Heart failure, unspecified; K74.60 Unspecified cirrhosis of liver; S40.021A Contusion of right upper arm, initial encounter; R62.7 Adult failure to thrive; D63.1 Anemia in chronic kidney disease; K59.00 Constipation, unspecified; D69.6 Thrombocytopenia, unspecified; I95.2 Hypotension due to drugs; K82.8 Other specified diseases of gallbladder; S09.90XA Unspecified injury of head, initial encounter; Z79.4 Long term (current) use of insulin; Z79.899 Other long term (current) drug therapy; Z99.2 Dependence on renal dialysis
CPT/HCPCS: 36415; 70450; 71045; 71250; 72170; 73501; 73502; 73552; 73700; 73721; 74018; 74176; 76000; 76999; 80053; 80074; 80202; 81001; 83036; 83605; 83735; 84100; 84145; 85014; 85018; 85025; 85610; 85730; 86706; 86850; 86900; 86901; 86923; 87040; 87081; 87086; 87502; 87811; 93005; 93225; 93970; 96361; 96365; 96366; 96375; 96376; 97162; 99285; A4217; A4649; C1713; C1769; J1100; J1171; J1643; J1644; J1885; J2250; J2270; J2371; J2405; J2543; J2704; J3010; J3370; J3373; J3375; J3475; J3490; J7050; J7120; J7999; P9016; P9047; Q5105; Q5106; A9270

== ENCOUNTER 2025-07-01 11:15 | Emergency (ER) | payer MEDICARE, MEDICAID, SELFPAY ==
--- NOTE | 2025-07-01 11:19 | EKG_ITS ---
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
--- NOTE | 2025-07-01 11:19 | XR_ITS ---
Exam: Chest 1 view, AP Date and time of exam: 07/01/2026, 12:56 AM Comparison: 06/22/2025 Findings: Normal heart size. Stable right-sided IJ dialysis catheter with the distal tip at cavoatrial junction. Diffuse ill-defined opacification of the left lung with findings most prominent in the lower zone. Left costophrenic angle is obscured. Trace fluid is seen in the right minor fissure. Right lung is otherwise clear. No pneumothorax. No acute bony abnormality. Impression: Persistent left-sided infiltrate with likely left pleural effusion. Pleural fluid seen in the right minor fissure.
--- NOTE | 2025-07-01 11:20 | PD.EDADULT ---
ED General RME/HPI General Chief complaint: Shortness of Breath/Dyspnea Stated complaint: TACHYCARDIA Time Seen by Provider: 07/01/25 11:18 Arrival date/time: 07/01/25 11:15 CC: Tachycardia hypoxemia HPI patient presents to the ER via EMS with a reported heart rate of 130 and oxygen saturations of 72% after only 30 minutes of dialysis. Patient is coming directly from dialysis center. Patient is awake alert oriented. EMS reported heart rate of 114 patient refused blood pressure and unable to get an oxygen saturation. Patient is currently on 6 L nasal cannula is mildly tachypneic but not in any acute distress. Patient is currently speaking in 4-5 word sentences without any acute distress mild tachypnea on 6 L nasal cannula stating his optical manager is Dr. Chadwick, he gets dialyzed on Tuesdays and Saturdays, was dialyzed yesterday, Sunday, June 30, 2025, after not getting enough off of him on the previous Sunday. Patient currently complains of coccyx pain and is in a left lateral recumbent position secondary to the coccyx pain. Related Data Home Medications ?Medication ?Instructions ?Recorded ?Confirmed cholecalciferol (vitamin D3) 50 2,000 unit PO QDAY #0 caps 12/19/15 06/15/25 mcg (2,000 unit) capsule (Vitamin D3) vitamin B complex 1 tab PO QDAY 04/01/19 06/15/25 nortriptyline 25 mg capsule 25 mg PO HS 11/12/20 06/15/25 hydroxyzine HCl 10 mg tablet 10 mg PO QPM PRN itching 03/07/24 06/15/25 insulin aspart U-100 100 unit/mL 5 unit subcut AC 03/07/24 06/15/25 (3 mL) subcutaneous pen (Novolog FlexPen U-100 Insulin aspart) midodrine 10 mg tablet 10 mg PO TID 03/07/24 06/15/25 sucralfate 100 mg/mL oral 10 ml PO Q6H 06/15/25 06/15/25 suspension Previous Rx's ?Medication ?Instructions ?Recorded aluminum-mag hydroxide-simethicone 10 ml PO QID #3,000 mL 02/15/25 200 mg-200 mg-20 mg/5 mL oral susp (Maalox Advanced) aspirin 81 mg tablet,delayed 81 mg PO BID #60 tabs 06/17/25 release hydrocodone 5 mg-acetaminophen 325 1 tab PO Q6H PRN pain #14 tabs 06/19/25 mg tablet Allergies Allergy/AdvReac Type Severity Reaction Status Date / Time house dust Allergy Verified 06/14/25 18:06 Review of Systems Review of Systems Narrative Review of Systems: GEN: No fever, no chills, no weight loss EYES: No discharge, no visual changes, no pain HEENT: No ear pain, no congestion, no sore throat PULM: No shortness of breath, no cough, no congestion CV: No chest pain, no dyspnea on exertion, no palpitations GI: No nausea, no vomiting, no diarrhea, no pain, no constipation : No frequency, no urgency, no dysuria MUSC/SKEL: No joint pain, no back pain SKIN: No rash PSYCH: No hallucinations, no depression HEME/LYMPH: No easy bleeding or bruising tendencies NEURO: No weakness, no headache Course Course Course Narrative: Patient's case in detail discussed with Dr. Yi the attending, at 1754 who states the patient is normal oxygen saturations of 95 to 90% on room air, he feels there is no need for admission the patient can have these pleural effusions reduced through current dialysis. At this time the patient wants to go home as well. Quality Measures none Orders Category Date Time Status COVID-19 Screening Questionnaire NOW Care 07/01/25 17:31 Active Decision to Admit X1 Care 07/01/25 17:31 Active EKG (ED ONLY) *Do not use* NOW Care 07/01/25 11:19 Completed IV [Insert IV] NOW Care 07/01/25 13:42 Active In and Out Catheter X1 Care 07/01/25 13:[address] chest wo con Stat Exams 07/01/25 13:44 Completed EKG (ED Only) Stat Exams 07/01/25 11:19 Draft US gall bladder Stat Exams 07/01/25 15:22 Completed XR chest 1V Stat Exams 07/01/25 11:19 Completed B-Type Natriuretic Peptide Stat Lab 07/01/25 12:28 Completed Blood Culture (Lab) Stat Lab 07/01/25 16:30 Received CBC Stat Lab 07/01/25 12:28 Completed Comprehensive Metabolic Panel Stat Lab 07/01/25 12:28 Completed Drug Screen,Urine Stat Lab 07/01/25 13:39 Completed LDH (Lactate Dehydrogenase) Stat Lab 07/01/25 12:28 Completed Magnesium Stat Lab 07/01/25 12:28 Completed Partial Thromboplastin Time Stat Lab 07/01/25 12:28 Completed Prothrombin Time with INR Stat Lab 07/01/25 12:28 Completed Troponin I Stat Lab 07/01/25 12:28 Completed Urinalysis, C/S if Indicated Stat Lab 07/01/25 13:39 Completed VBG [Venous Blood Gas] Stat Lab 07/01/25 12:28 Completed cefTRIAXone/D5w 1gm IV premix [Rocephin/D5w 1gm IV Med 07/01/25 15:43 Discontinued premix] 1 gm in 50 ml IV X1 Vital Signs Vital signs: Vital Signs Temperature 98.1 F 07/01/25 11:59 Pulse Rate 114 H 07/01/25 11:59 Respiratory Rate 18 07/01/25 11:59 Blood Pressure 122/76 07/01/25 11:59 Pulse Oximetry (%) 97 07/01/25 11:59 Oxygen Delivery Method Room Air 07/01/25 11:59 Discharge Plan Plan Patient Disposition: HOME (Self Care) Prescriptions/Referrals Prescriptions/Med Rec: No Action nortriptyline 25 mg capsule 25 mg PO HS cholecalciferol (vitamin D3) [Vitamin D3] 2,000 UNIT capsule 2,000 unit PO QDAY Qty: 0 vitamin B complex Tablet 1 tab PO QDAY sucralfate 100 mg/mL suspension 10 ml PO Q6H Rx Instructions: FOR PEPTIC ULCER aspirin 81 mg tablet,delayed release (DR/EC) 81 mg PO BID Qty: 60 0RF hydrocodone-acetaminophen 5-325 mg tablet 1 tab PO Q6H MDD 3 PRN (Reason: pain) Qty: 14 0RF hydroxyzine HCl 10 mg tablet 10 mg PO QPM PRN (Reason: itching) Patient Comments: TAKE 1 TABLET BY MOUTH NIGHTLY midodrine 10 mg Tablet 10 mg PO TID Rx Instructions: HOLD IF SBP>120 insulin aspart U-100 [Novolog FlexPen U-100 Insulin] 100 unit/mL (3 mL) insulin pen 5 unit SUBCUT AC Patient Comments: INJECT 5 UNIT SUBCUTANEOUSLY 3 TIMES A DAY BEFORE MEALS HOLD IF BS<150 alum-mag hydroxide-simeth [Maalox Advanced] 200-200-20 mg/5 mL suspension 10 ml PO QID Qty: 3000 0RF Rx Instructions: administer between meals and at bedtime Referrals: Sunil Chadwick MD [Primary Care Provider] - In 1 week Problem List Clinical Impression: Pneumonia, Hypoxia Patient/Caregiver Discharge Instructions Education Materials: Pleural Effusion, ED Pneumonia (Adult) Print Language: Yakut Stand Alone Forms: [employer] Award Info., Patient Portal Info Letter PA/CORK MIXER Supervising Physician PA/CORK MIXER Supervising Physician: Titi Rosa ENP [facility] Clinical Information Provided by patient and EMS Medical Records [facility] and [facility] EKG EKG Interpretation narrative: EKG performed at 1246 shows ventricular rate of 113 AL interval 112 QRS of 71 QTc of 402 the sinus tachycardia. No significant ST segment elevation or depression noted Lab Interpretation Lab(s) interpretation(s): CBC shows a leukocytosis of 13.4 mild anemia with H&H of 10.7 and 33.2 respectively. Platelets at 354. Coags within acceptable limits VBG shows a pH of 7.59 pCO2 of 31 pO2 of 40 CMP shows a creatinine of 2.5 no other significant electrolyte imbalances glucose at 98 corrected calcium at 10.8 AST at 35 alk phos at 451 Troponin at within acceptable limits BNP at 216 Medication Administration(s) Medication Administration History Discontinued Medications Ceftriaxone Sodium/Dextrose (Rocephin/D5w 1gm Iv Premix) 1 gm in 50 mls @ 100 mls/hr IV X1 ONE Stop: 07/01/25 16:12 Last Infusion: 07/01/25 17:42 Dose: Infused Documented By: Admin: 07/01/25 16:36 Dose: 100 mls/hr Documented By: TAVARES Diagnosis Differential diagnosis: Pneumonia sepsis pleural effusion Differential dx and/or dx ruled out: Patient continues to have mnemonic assessment on his imaging in addition to a large pleural effusion on the left greater than on the right. At this time not sure I want to discharge this patient home as these can be tapped. Discussed with Dr. Smith who states he is unable to do thoracentesis today, the patient's oxygen saturations have remained in the 92 to 94% on room air, even though VBG shows hypoxemia and initial report was an oxygen saturation of 72%. In addition the patient is leukocytotic however this is unchanged from his last admission for acute sepsis when he was discharged 6 days ago. Patient's case then discussed with Dr. Hanna attending who agrees to accept the patient for admission.
[2025-07-01 11:59] VITALS: BP 122/76; PULSE 114; RESP 18; TEMP 36.7; O2SAT 97; BMI 25.7
[2025-07-01 12:36] LABS: Base Excess, Venous 8 (-3-3); Basophils # (Auto) 0.1 Thou/mm3 (0.0-0.2); Basophils % (Auto) 0 % (0-2.5); Eosinophils # (Auto) 0.1 Thou/mm3 (0.0-0.5); Eosinophils % (Auto) 1 % (0-10); Hematocrit 33.2 % (41.0-53.0); Hemoglobin 10.7 g/dL (13.5-16.0); Immature Granulocytes Auto 0.08 Thou/mm3 (0.00-0.00); Lymphocytes # (Auto) 1.3 Thou/mm3 (1.0-4.8); Lymphocytes % (Auto) 10 % (10-50); Mean Corpuscular HGB Conc 32.2 g/dl (31.0-37.0); Mean Corpuscular Hemoglobin 33.1 pg (25.0-35.0); Mean Corpuscular Volume 103 fL (80-100); Monocytes # (Auto) 0.7 Thou/mm3 (0.0-0.8); Monocytes % (Auto) 5 % (0-12); Neutrophils # (Auto) 11.2 Thou/mm3 (1.8-7.7); Neutrophils % (Auto) 84 % (37-80); Nucleated Red Blood Cell # 0.00 Thou/mm3 (0.00-0.00); Nucleated Red Blood Cell % 0 /100 WBC (0); O2 Saturation, Venous 82 % (96-97); PCO2, Venous 31 mmHg (36-56); PO2, Venous 40 mmHg (15-58); Platelet Count 354 Thou/mm3 (140-440); RDW Standard Deviation 80.4 fL (35.1-43.9); Red Blood Count 3.23 Miln/mm3 (4.50-5.90); White Blood Count 13.4 Thou/mm3 (3.8-10.6); pH, Venous 7.59 (7.33-7.66)
[2025-07-01 12:55] LABS: INR 1.1 (0.9-1.3); Partial Thromboplastin Time 31.1 Seconds (22.0-36.0); Prothrombin Time 11.8 Seconds (9.0-12.2)
[2025-07-01 13:01] LABS: Alanine Aminotransferase 17 U/L (10-49); Albumin, Serum 1.9 gm/dL (3.4-4.8); Albumin/Globulin Ratio 0.6 (1.2-2.2); Alkaline Phosphatase 451 U/L (46-116); Anion Gap 8 (7-16); Aspartate Amino Transferase 35 U/L (0-34); B-Type Natriuretic Peptide 216 pg/mL (0-100); BUN/Creatinine Ratio 8 Ratio (12-20); Bilirubin,Total 0.5 mg/dL (0.3-1.2); Blood Urea Nitrogen 19 mg/dL (9-23); Calcium 9.1 mg/dL (8.3-10.6); Calcium (Corrected) 10.8 mg/dL (8.5-10.1); Carbon Dioxide 30.1 mMol/L (20.0-31.0); Chloride 98 mMol/L (98-107); Creatinine (Component) 2.5 mg/dL (0.6-1.3); Estimated Creatinine Clearance 29.9 mL/min (>60); Globulin 3.2 gm/dL (2.3-3.5); Glucose 98 mg/dL (74-106); LDH (Lactate Dehydrogenase) 221 U/L (120-246); Magnesium 2.0 mg/dL (1.6-2.6); Osmolality,Calculated 274 (275-295); Potassium 3.5 mMol/L (3.4-5.1); Sodium 136 mMol/L (136-145); Total Protein 5.1 gm/dL (5.7-8.2); Troponin I < 0.020 ng/mL (0.0-0.045); eGFR 28 See Note
--- NOTE | 2025-07-01 13:44 | XR_ITS ---
Examination: CT chest, without intravenous contrast. Sagittal and coronal 2-D reconstructions. Exam date and time: 07/01/2025, 2:43 PM CTDI:vol (mGy) 13.9 DLP: (mGycm) 502 Technique: Multiple 3.0 mm axial sections of the chest to been obtained. Bone and lung density settings are obtained. Sagittal and coronal 2-D reconstructions have been obtained. Low dose protocols were performed. One or more of the following dose reduction techniques were used; automated exposure control, adjustment of the mA and/or KV according to patient size, use of iterative reconstruction technique. Findings: Bilateral pleural effusions, findings greater on left. Right-sided pleural fluid extends into the minor fissure. There is associated bibasilar atelectasis and infiltrates. Cardiac silhouette and pulmonary vascular structures appear normal in size and contour. No focal mass. No pneumothorax. No acute bony abnormality. Diffuse soft tissue edema seen in the chest wall and axilla. Partially visualized upper abdomen demonstrate distended gallbladder with ascites IMPRESSION: Bilateral effusions, left greater than right. Bilateral basilar atelectasis and infiltrates. Diffuse superficial soft tissue edema Partially visualized upper abdomen demonstrate elated distended gallbladder and ascites
[2025-07-01 13:46] LABS: Collection Type, Urine Clean Catch
[2025-07-01 13:58] LABS: Bilirubin,Urine Negative (Negative); Blood,Urine Negative (Negative); Clarity,Urine Clear (Clear/Hazy); Color,Urine Yellow (Lt Yel-Yel); Culture Indicated,Urine Not Indicated; Glucose, Urine Negative (Negative); Hyaline Casts,Urine 1 /hpf (0-1); Ketones,Urine Negative (Negative); Leukocyte Esterase,Urine Negative (Negative); Nitrite,Urine Negative (Negative); PH,Urine 5.5 (5.0-7.0); Protein,Urine 1+ (Neg - Trace); RBC,Urine 2 /hpf (0-3); Specific Gravity,Urine 1.021 (1.001-1.035); Squamous Epithelial Cell,Urine 2 /hpf (0-5); Urobilinogen,Urine Negative mg/dL (0.0-1.0); WBC,Urine 3 /hpf (0-5)
[2025-07-01 14:14] LABS: Amphetamine/Methamp Scrn,U Negative (Negative); Barbiturate Screen,Urine Negative (Negative); Benzodiazepines Screen,Urine Negative (Negative); Benzoylecgonine Screen, Ur Negative (Negative); Fentanyl Screen,Urine Negative (Negative); Opiate Screen,Urine Positive (Negative); THC Screen,Urine Negative (Negative)
--- NOTE | 2025-07-01 14:30 | PC.NURSE ---
pt placed on waffle mattress at this time
--- NOTE | 2025-07-01 14:36 | PC.NURSE ---
PT TO CT
--- NOTE | 2025-07-01 15:22 | XR_ITS ---
Examination: Abdomen sonogram, Limited Date and time of exam: July 01, 2025, 1600 hrs. Indications: Abdominal pain today, distended gallbladder on CT study today Technique: Real-time leigh scale transabdominal sonographic images of the upper abdomen obtained. Findings: Distended gallbladder. Moderate gallbladder sludge. Normal gallbladder wall. Common bile duct 0.6 cm no stones. Pancreatic head 1.9 cm. Liver 17.4 cm fatty infiltration irregular contour, mild to moderate free fluid adjacent to the liver. Normal hepatopedal portal venous flow. Patent IVC Impression: Gallbladder sludge. Negative for cholelithiasis, negative for cholecystitis No common bile duct stones.
[2025-07-01 16:11] VITALS: BP 122/70; PULSE 107; RESP 16; TEMP 36.7; O2SAT 97
[2025-07-01] MEDS: cefTRIAXone/D5w 1gm IV premix 1 GM/50 ML BAG IV (16:36)
--- NOTE | 2025-07-01 18:15 | ESCONSULT_ITS ---
<Statement entered by Stella Luna MD - 07/14/25 08:44> I reviewed above note and agree with findings and plans. I have also personally examined the patient with medicine team and went over assessment and plan with medical team including data analysis intern and resident physician. HPI Data of Consult Consult date: 07/01/25 Primary Care Provider: uSnil Chadwick MD Consult Narrative Reason for consult: Pleural effusions History of present illness: 65M with PMHx significant for ESRD (on dialysis T//Sat) with Dr. Chadwick, diabetes, CRISTIANO, BPH, gastric bypass, hip fracture s/p repair presented from SNF due to hypoxia per EMS saturating around 70%. In the ED however patient is saturating above 96% on room air. Workup did show bilateral pleural effusion more significant on the left compared to the right. At this time internal medicine team recommends aggressive hemodialysis sessions to remove fluid and if patient continues to be hypoxic or start developing symptoms such as shortness of breath can admit the patient for IR guided thoracentesis. cc:: cc: Exam Vital Signs Temp Pulse Resp BP Pulse Ox O2 Del Method 98.0 F 107 H 16 122/70 97 Room Air 07/01/25 16:11 07/01/25 16:11 07/01/25 16:11 07/01/25 16:11 07/01/25 16:11 07/01/25 16:11 Narrative Exam Physical Exam GENERAL: NAD, AAOx3 HEENT: Moist mucosa. Eyes open, symmetrical, & clear, right sided HD catheter CARDIO: Heart RRR, no obvious murmurs PULM: No noted coughing/dyspnea CTA B/L, no R/W/R GI: Abdomen soft, nondistended, no pain on palpation. BSx4 SKIN/MSK/EXT: no pain on palpation. Pedal pulses present B/L NEURO: AAOx3, no focal neuro deficits, able to move all 4 extremities Results Labs 07/01/25 12:28 07/01/25 12:28 Labs: Short CBC 07/01/25 Range/Units 12:28 WBC 13.4 H D (3.8-10.6) Thou/mm3 Hgb 10.7 L D (13.5-16.0) g/dL Hct 33.2 L (41.0-53.0) % Plt Count 354 D (140-440) Thou/mm3 BMP 07/01/25 12:28 Sodium 136 Potassium 3.5 Chloride 98 Carbon Dioxide 30.1 BUN 19 Creatinine 2.5 H D Glucose 98 Calcium 9.1 Cardiac Enzymes 07/01/25 Range/Units 12:28 Troponin I < 0.020 (0.0-0.045) ng/mL Liver Function 07/01/25 Range/Units 12:28 Total Bilirubin 0.5 (0.3-1.2) mg/dL AST 35 H (0-34) U/L ALT 17 (10-49) U/L Alkaline Phosphatase 451 H (46-116) U/L Albumin 1.9 L (3.4-4.8) gm/dL Urine 07/01/25 Range/Units 13:39 Urine Color Yellow (Lt Yel-Yel) Urine Clarity Clear (Clear/Hazy) Urine pH 5.5 (5.0-7.0) Ur Specific [place] 1.021 (1.001-1.035) Urine Protein 1+ A (Neg - Trace) Urine Glucose (UA) Negative (Negative) ABG Interpretation ABG results: 07/01/25 12:28 VBG pH 7.59 VBG pCO2 31 L VBG pO2 40 VBG Base Excess 8 H Quality Measures Quality Measures none Medications Home Medications and Allergies Home Medications ?Medication ?Instructions ?Recorded ?Confirmed ?Type cholecalciferol (vitamin D3) 50 2,000 unit PO QDAY #0 caps 12/19/15 06/15/25 History mcg (2,000 unit) capsule (Vitamin D3) vitamin B complex 1 tab PO QDAY 04/01/1906/15 History nortriptyline 25 mg capsule 25 mg PO HS 11/12/2006/15 History hydroxyzine HCl 10 mg tablet 10 mg PO QPM PRN itching 03/07/24 06/15/25 History insulin aspart U-100 100 unit/mL 5 unit subcut AC 01/2606/15/25 History (3 mL) subcutaneous pen (Novolog FlexPen U-100 Insulin aspart) midodrine 10 mg tablet 10 mg PO TID 03/07/24 History sucralfate 100 mg/mL oral 10 ml PO Q6H 06/15/25 History suspension Allergies Allergy/AdvReac Type Severity Reaction Status Date / Time house dust Allergy Verified 06/14/25 18:06 Visit Medications Discontinued Medications Ceftriaxone Sodium/Dextrose (Rocephin/D5w 1gm Iv Premix) 1 gm in 50 mls @ 100 mls/hr IV X1 ONE Stop: 07/01/25 16:12 Last Infusion: 07/01/25 17:42 Dose: Infused Assessment & Plan Plan 65M with PMHx significant for ESRD (on dialysis T//Sun) with Dr. Chadwick, diabetes, CRISTIANO, BPH, gastric bypass, hip fracture s/p repair presented from SNF due to hypoxia per EMS saturating around 70%. In the ED however patient is saturating above 96% on room air. Workup did show bilateral pleural effusion more significant on the left compared to the right. At this time internal medicine team recommends aggressive hemodialysis sessions to remove fluid and if patient continues to be hypoxic or start developing symptoms such as shortness of breath can admit the patient for IR guided thoracentesis. #Volume overload #Bilateral pleural effusions L>>R Per EMS patient was desaturating to 70%. However in the ER patient was saturating over 96% on room air. Imaging studies did show bilateral pleural effusions more significant on the left compared to the right. ? Recommend aggressive hemodialysis sessions ? Walking oxygen test to monitor for hypoxia #ESRD ? Continue with hemodialysis as scheduled Case discussed with my attending Dr. Jeremy Corley MD PGY-2 Disclaimer: Despite multiple revisions, due to the dictation software being used, the document bellow may not be free of grammatical errors including phonetic/typographic errors. However, this does not deter from our commitment to providing health care in the patient's best interest in mind.
--- NOTE | 2025-07-01 18:30 | PC.NURSE ---
attempted to call report to facility. nurse is in a meeting and will call back when available
[2025-07-01 18:57] VITALS: BP 115/71; PULSE 107; RESP 16; O2SAT 95
--- NOTE | 2025-07-01 19:16 | PC.NURSE ---
report given to Serena from [facility]
[2025-07-01 20:35] VITALS: BP 133/72; PULSE 107; RESP 16; O2SAT 95
[2025-07-01 21:14] VITALS: BP 146/80; PULSE 106; RESP 15; TEMP 36.5; O2SAT 96
== END 2025-07-01 21:16 | disposition home or self-care (01) ==
PROVIDERS: Registered Nurse General Practice; Emergency Provider Emergency Medicine; PCP Internal Medicine Nephrology
DX: J18.9 Pneumonia, unspecified organism (principal); R09.02 Hypoxemia; J90 Pleural effusion, not elsewhere classified; R00.0 Tachycardia, unspecified; R06.82 Tachypnea, not elsewhere classified; R10.9 Unspecified abdominal pain; Z99.2 Dependence on renal dialysis
CPT/HCPCS: 51701; 36415; 71045; 71250; 76705; 80053; 80307; 81001; 82803; 83615; 83735; 83880; 84484; 85025; 85610; 85730; 87040; 87077; 87186; 93005; 96365; 99284; J0696

== ENCOUNTER 2025-07-06 11:59 | Inpatient (IN) | payer MEDICARE, MEDICAID, SELFPAY ==
[2025-07-06 12:04] VITALS: PULSE 122; RESP 20; O2SAT 95; BMI 31.7
--- NOTE | 2025-07-06 12:13 | XR_ITS ---
Examination: AP chest single view Technique: AP portable sitting chest single view Date and time: July 06, 2025 1223 hrs., Comparison July 01, 2025 Indications: Weakness today Findings: Normal heart size Bilateral perihilar bibasilar pneumonia. Moderate vascular congestion. Right internal jugular dialysis catheter tips SVC satisfactory position Impression: Bilateral perihilar basilar pneumonia
[2025-07-06 12:31] VITALS: BP 125/75; PULSE 120; RESP 18; TEMP 37.4; O2SAT 92
[2025-07-06 12:31] LABS: OBS Card Lot # 0124; OBS Developer Lot # 23003; OBS Performed By BOTED; OBS QC OK? Yes; Occult Blood, Stool Positive (Negative)
--- NOTE | 2025-07-06 12:36 | EKG_ITS ---
[facility] Test Date: 2025-07-06 Pat Name: TA STONE Department: Room: - Gender: Male [employer] Operator: : 1960 Requested By: Jenna Null Order Number: [id number] Reading MD: Jenna Null Measurements Intervals [place] Rate: 120 P: 16 DE: 130 QRS: 10 QRSD: 89 T: 87 QT: 339 QTc: 479 Interpretive Statements SINUS TACHYCARDIA LOW QRS VOLTAGE IN PRECORDIAL LEADS [QRS DEFLECTION < 1.0 mV IN CHEST LEADS] ABNORMAL RHYTHM ECG Compared to ECG 07/01/2025 12:46:24 Low QRS voltage now present Short DE interval no longer present Myocardial infarct finding no longer present /store/S0/[id number]/[id number].pdf
[2025-07-06 13:10] LABS: Basophils # (Auto) 0.0 Thou/mm3 (0.0-0.2); Basophils % (Auto) 0 % (0-2.5); Eosinophils # (Auto) 0.0 Thou/mm3 (0.0-0.5); Eosinophils % (Auto) 0 % (0-10); Hematocrit 28.0 % (41.0-53.0); Immature Granulocytes Auto 0.04 Thou/mm3 (0.00-0.00); Lymphocytes # (Auto) 1.9 Thou/mm3 (1.0-4.8); Lymphocytes % (Auto) 22 % (10-50); Mean Corpuscular HGB Conc 31.4 g/dl (31.0-37.0); Mean Corpuscular Hemoglobin 32.6 pg (25.0-35.0); Mean Corpuscular Volume 104 fL (80-100); Monocytes # (Auto) 0.7 Thou/mm3 (0.0-0.8); Monocytes % (Auto) 8 % (0-12); Neutrophils # (Auto) 6.2 Thou/mm3 (1.8-7.7); Neutrophils % (Auto) 69 % (37-80); Nucleated Red Blood Cell # 0.00 Thou/mm3 (0.00-0.00); Nucleated Red Blood Cell % 0 /100 WBC (0); Platelet Count 300 Thou/mm3 (140-440); RDW Standard Deviation 76.5 fL (35.1-43.9); Red Blood Count 2.70 Miln/mm3 (4.50-5.90); White Blood Count 8.9 Thou/mm3 (3.8-10.6)
[2025-07-06 13:16] LABS: Hemoglobin 8.8 g/dL (13.5-16.0)
[2025-07-06 13:20] LABS: INR 1.1 (0.9-1.3); Prothrombin Time 12.4 Seconds (9.0-12.2)
[2025-07-06 13:23] LABS: Alanine Aminotransferase 23 U/L (10-49); Albumin, Serum 1.9 gm/dL (3.4-4.8); Albumin/Globulin Ratio 0.6 (1.2-2.2); Alkaline Phosphatase 435 U/L (46-116); Anion Gap 14 (7-16); Aspartate Amino Transferase 45 U/L (0-34); BUN/Creatinine Ratio 14 Ratio (12-20); Bilirubin,Total 0.4 mg/dL (0.3-1.2); Blood Urea Nitrogen 55 mg/dL (9-23); Calcium 9.3 mg/dL (8.3-10.6); Calcium (Corrected) 11.0 mg/dL (8.5-10.1); Carbon Dioxide 23.7 mMol/L (20.0-31.0); Chloride 98 mMol/L (98-107); Creatinine (Component) 4.0 mg/dL (0.6-1.3); Estimated Creatinine Clearance 21.5 mL/min (>60); Globulin 3.2 gm/dL (2.3-3.5); Glucose 109 mg/dL (74-106); Lipase 21 U/L (12-53); Osmolality,Calculated 288 (275-295); Potassium 5.7 mMol/L (3.4-5.1); Sodium 136 mMol/L (136-145); Total Protein 5.1 gm/dL (5.7-8.2); eGFR 16 See Note
[2025-07-06] MEDS: SODIUM CHLORIDE 0.9% 1000 ML 1,000 ML 999 ML IV (14:10)
[2025-07-06] MEDS: PANTOPRAZOLE/NS 80MG IV PREMIX 80 MG/100 ML BAG 10 MG IV ×2 (14:57→23:50)
--- NOTE | 2025-07-06 15:02 | EDNOTE_ITS ---
<Statement entered by Mallory Lorenzana MD - 07/22/25 06:12> As co-signing physician, I was present and available for consult prn. I concur with the plan and care as documented by the midlevel provider. ED GI Bleed RME/HPI General Chief complaint: GI Bleed Stated complaint: GI BLEED Time Seen by Provider: 07/06/25 12:06 Arrival date/time: 07/06/25 11:59 This is a 65 year old male by ambulance from [facility] with complaints of black tarry stools and coffee-ground emesis that started today. Patient has a past medical history significant for ESRD (on dialysis T//Sun) with Dr. Chadwick, diabetes, CRISTIANO, BPH, gastric bypass, hip fracture s/p repair. Patient does take a baby aspirin daily. No other blood thinners noted. Patient states that he did not go to his dialysis last week on Sunday. Patient does have a history of insulin by Dr. Fitzpatrick in February of this year. At that time EGD per notes showed Received EGD which showed stenosis of the GE junction, treated with dilation, and several ulcers. Patient treated with Maalox, sucralfate, Protonix. Related Data Home Medications ?Medication ?Instructions ?Recorded ?Confirmed cholecalciferol (vitamin D3) 50 2,000 unit PO QDAY #0 caps 12/19/15 07/06/25 mcg (2,000 unit) capsule (Vitamin D3) vitamin B complex 1 tab PO QDAY 04/01/1907/06 nortriptyline 25 mg capsule 25 mg PO HS 11/12/2007/06 hydroxyzine HCl 10 mg tablet 10 mg PO QPM PRN itching 03/07/24 07/06/25 insulin aspart U-100 100 unit/mL 5 unit subcut AC 01/2607/06/25 (3 mL) subcutaneous pen (Novolog FlexPen U-100 Insulin aspart) sucralfate 100 mg/mL oral 10 ml PO Q6H 06/15/25 suspension bisacodyl 10 mg rectal suppository 10 mg NH QDAY PRN c onstipation 07/06/25 07/06/25 (Dulcolax (bisacodyl)) sevelamer carbonate 0.8 gram oral 0.8 g PO TID 5 07/06/25 powder packet (Renvela) sodium phosphates 19 gram-7 118 ml NH QDAY PRN constip ation 07/06/25 07/06/25 gram/118 mL enema (Enema) Previous Rx's ?Medication ?Instructions ?Recorded aluminum-mag hydroxide-simethicone 10 ml PO QID #3,000 mL 02/15/25 200 mg-200 mg-20 mg/5 mL oral susp (Maalox Advanced) hydrocodone 5 mg-acetaminophen 325 1 tab PO Q6H PRN pa in #14 tabs 06/19/25 mg tablet pantoprazole 40 mg tablet,delayed 40 mg PO QDAY #30 ta bs 07/09/25 release sucralfate 100 mg/mL oral 1 g (10 mL) PO QID 30 days # 1,200 07/09/25 suspension mL levofloxacin 750 mg tablet 750 mg PO QDAY Pneumonia 7 days #7 07/20/25 tabs Allergies Allergy/AdvReac Type Severity Reaction Status Date / Time house dust Allergy Verified 06/14/25 18:06 Review of Systems Review of Systems Systems Reviewed: All systems reviewed, normal except as documented Past Medical History Surgical History OTHER SURGICAL HX: gastric bypass, and R kidney removed. ED Exam Narrative Physical exam: VITAL SIGNS: Reviewed. GENERAL APPEARANCE: Alert and interactive, follows commands, no acute distress, pale skin HEAD AND FACE: Non-traumatic. ENT: PERRL, conjuctiva pink and clear, eyelid no trauma, Mucous membrane moist. NECK: Supple, nontender, no nuchal rigidity. CHEST: No tenderness, no crepitus, no paradoxical movement, no retractions. LUNGS: Clear, well ventilated, symmetric, diminished at the bases HEART: Regular rate, regular rhythm, no murmur, no gallops. Tachycardic ABDOMEN: Soft, nondistended, no guarding, nontender NEUROLOGICAL: Gross motor function intact sensory function intact, Appropriate for age. MUSCULOSKELETAL: low back nontender, full range of motion. EXTREMITIES: Pitting edema to upper and lower extremities. Distal neurovascular status intact bilateral foot SKIN: Patient has a approximately 0.5 to 1 cm full-thickness wound to coccyx area.. Course Quality Measures none Orders Category Date Time Status Admit to Inpatient Status Routine Admission 07/06/25 15:52 Active Patient Condition Routine Admission 07/06/25 15:50 Ordered COVID-19 Screening Questionnaire NOW Care 07/06/25 15:[address] Screening NOW Care 07/06/25 14:45 Completed Decision to Admit X1 Care 07/06/25 15:17 Completed EKG (ED ONLY) *Do not use* NOW Care 07/06/25 12:36 Completed Insert IV NOW Care 07/06/25 12:33 Completed NPO NOW Care 07/06/25 15:54 Completed Notify provider NEEDED Care 07/06/25 15:50 Completed Occult Blood,Stool (Nursing) ONCE Care 07/06/25 12:21 Completed Consult to Gastroenterology Stat Cons 07/06/25 14:53 Ordered Diet NPO (NOW) Diet 07/06/25 15:54 Completed EKG (ED Only) Stat Exams 07/06/25 12:36 Draft XR chest 1V Stat Exams 07/06/25 12:13 Completed CBC Stat Lab 07/06/25 12:55 Completed Comprehensive Metabolic Panel Stat Lab 07/06/25 12:55 Completed Lipase Stat Lab 07/06/25 12:55 Completed Occult Blood, Stool (LAB) Stat Lab 07/06/25 12:21 Completed PT [Prothrombin Time with INR] Stat Lab 07/06/25 12:55 Completed Type and Screen Stat Lab 07/06/25 12:55 Completed Pantoprazole Inj [Protonix Inj] Med 07/06/25 14:45 Discontinued 80 mg IVP X1 ONE Pantoprazole/Ns 80Mg IV Premix [Protonix/NS 80mg IV Med 07/06/25 14:46 Discontinued Premix] 80 mg in 100 ml IV Q10H Sodium Chloride 0.9% 1000 ml [Ns] 1,000 ml Med 07/06/25 13:42 Discontinued IV 999 mls/hr cefTRIAXone/D5w 1gm IV premix [Rocephin/D5w 1gm IV Med 07/06/25 14:49 Discontinued premix] 1 gm in 50 ml IV QDAY Code Status Routine Oth 07/06/25 15:50 Completed Vital Signs Vital signs: Vital Signs Temperature 99.4 F 07/06/25 12:31 Pulse Rate 120 H 07/06/25 12:31 Respiratory Rate 18 07/06/25 12:31 Blood Pressure 125/75 07/06/25 12:31 Pulse Oximetry (%) 92 L 07/06/25 12:31 Oxygen Delivery Method Room Air 07/06/25 12:31 GI Bleed MDM Narrative MDM Narrative:: chest x ray: Findings: Normal heart size Bilateral perihilar bibasilar pneumonia. Moderate vascular congestion. Right internal jugular dialysis catheter tips SVC satisfactory position Impression: Bilateral perihilar basilar pneumonia Labs reviewed: CBC shows a white count of 8.9, hemoglobin 8.8 hematocrit of 28 platelet count of 300. PT 12.4 INR is 1.1, BMP shows a potassium of 5.7, BUN of 55 creatinine of 4. AST 45 ALT is 23 alk phos is 435, guaiac stool was positive for blood. Chest x-ray shows bilateral perihilar pneumonia. I looked at patient's records and patient was scoped in February 2025, EGD per notes showed Received EGD which showed stenosis of the GE junction, treated with dilation, and several ulcers. Patient treated with Maalox, sucralfate, Proton ix. Because there is no indication for varices octreotide held for now. Patient does look like he has cirrhosis per previous CT scan of abdomen and pelvis. I gave patient a bolus of Protonix and started him on a Protonix drip. I also treated patient for pneumonia I gave him a dose of Rocephin. I called Dr. Fitzpatrick and he stated he will consult on the patient. He said to keep the patient n.p.o. and he will scope patient in the morning. I called admitting hospitalist team who agreed to admit patient to the hospital. Patient data External records reviewed:: [facility] previous records Clinical information provided by:: patient Social determinants that could affect healthcare access:: none Patient has the following chronic illnesses:: see hpi How is presenting disease/condition affected by chronic disease/condition?: exacerbated by Evaluation data The following diagnostics were reviewed and interpreted by me:: lab results and radiology exam(s) Lab and/or radiology exams considered but not ordered:: none Interpretation Summary: see note Medications / Prescriptions Medications or Prescriptions considered but not ordered:: none Medication administrations:: Medication Administration History Discontinued Medications Acetaminophen (Acetaminophen 325 Mg Tablet) 650 mg PO Q6H PRN PRN Reason: PAIN 1-3 OR FEVER > 100.4 Stop: 08/05/25 15:54 Hydrocodone Bitart/Acetaminophen (Hydrocodone/Apap 5/325 Tablet) 1 tab PO Q4HR PRN PRN Reason: PAIN SCALE 4-6 (Moderate Stop: 07/11/25 15:54 Last Admin: 07/09/25 01:31 Dose: 1 tab Documented By: Admin: 07/06/25 22:12 Dose: 1 tab Documented By: ALISA Al Hydrox/Mg Hydrox/Simethicone (Mg Hyd/Al Hyd/Remberto (Maalox Reg) Susp 30 Ml Udc) 15 ml PO QID ERIC Stop: 08/06/25 17:14 Last Admin: 07/09/25 17:28 Dose: 15 ml Documented By: Admin: 07/09/25 12:28 Dose: 15 ml Documented By: Admin: 07/09/25 05:38 Dose: 15 ml Documented By: Admin: 07/08/25 20:19 Dose: 15 ml Documented By: Admin: 07/08/25 17:01 Dose: Not Given Documented By: HEMANTH Non-Admin Reason: Not In Room Admin: 07/08/25 13:32 Dose: 15 ml Documented By: Admin: 07/08/25 05:10 Dose: 15 ml Documented By: Admin: 07/07/25 21:32 Dose: 15 ml Documented By: Admin: 07/07/25 18:59 Dose: 15 ml Documented By: LACEY Comments: from endo Balsam [place] Oil (Balsam [place] Oil (Venelex) 60 Gm Tube) 0 gm TOP BID ERIC Stop: 08/07/25 20:59 Last Admin: 07/09/25 09:00 Dose: 1 applicatio Documented By: Admin: 07/08/25 20:18 Dose: 1 applicatio Documented By: RONDA Benzocaine (Benzocaine 20% (Hurricaine) Saxon 1 Dose) 0 dose TOP X1 ONE Stop: 07/07/25 16:20 Cyanocobalamin (Cyanocobalamin Inj 1,000 Mcg/Ml Vial) 1,000 mcg IM X1 ONE Stop: 07/07/25 07:59 Last Admin: 07/07/25 11:54 Dose: 1,000 mcg Documented By: CARYN Comments: pt in dialysis Dextrose (Dextrose 50%-Water Inj 50 Ml Syringe) 50 ml IV Q15MIN PRN PRN Reason: BG <50 OR BG <70 & pt unresponsive Stop: 08/05/25 16:08 Last Admin: 07/07/25 18:15 Dose: 50 ml Documented By: LACEY Diphenhydramine HCl (Diphenhydramine Inj 50 Mg/Ml Vial) 25 mg IVP PRNMRX1 PRN PRN Reason: MODERATE SEDATION Stop: 07/07/25 18:19 Epoetin Larry (Epoetin Larry-Epbx Inj 10,000 Unit/Ml Vial (Esrd)) 10,000 unit SC X1 ONE Stop: 07/07/25 10:31 Last Admin: 07/07/25 11:13 Dose: 10,000 unit Documented By: STEWART Epoetin Larry (Epoetin Larry-Epbx Inj 10,000 Unit/Ml Vial (Non-Esrd)) 10,000 unit IV X1 ONE Stop: 07/09/25 09:01 Last Admin: 07/09/25 10:32 Dose: 10,000 unit Documented By: DONALD Fentanyl Citrate (Fentanyl Cit Inj 50 Mcg/Ml Amp 2ml) 50 mcg IVP Q2M PRN PRN Reason: MODERATE SEDATION Stop: 07/07/25 18:19 Fentanyl Citrate (Fentanyl Cit Inj 50 Mcg/Ml Amp 2ml) Confirm Administered Dose 100 mcg .ROUTE .STK-MED ONE Stop: 07/07/25 16:28 Folic Acid (Folic Acid Inj 1 Mg/0.2 Ml) 1 mg IVP QDAY ERIC Stop: 08/06/25 08:59 Last Admin: 07/09/25 09:50 Dose: Not Given Documented By: DONALD Non-Admin Reason: no IV access Admin: 07/08/25 09:46 Dose: 1 mg Documented By: Admin: 07/07/25 11:52 Dose: 1 mg Documented By: CARYN Glucagon (Glucagon Inj 1 Mg Vial) 1 mg IM Q15MIN PRN PRN Reason: BG <70, and no IV access Heparin Sodium (Porcine) (Heparin Sod Inj 1000 Unit/Ml Vial 10 Ml) 3,500 unit INDWELLCAT X1 PRN PRN Reason: DIALYSIS Stop: 07/10/25 08:22 Last Admin: 07/07/25 11:24 Dose: 3,500 unit Documented By: STEWART Co-signed By: CARYN Hydromorphone HCl (Hydromorphone Inj 2 Mg/Ml Vial) 0.5 mg IVP Q2H PRN PRN Reason: Pain 7-10 Stop: 07/11/25 15:59 Last Admin: 07/07/25 02:12 Dose: 0.5 mg Documented By: ALISA Sodium Chloride (Ns) 1,000 mls @ 999 mls/hr IV .Q1H1M ONE Stop: 07/06/25 14:42 Last Infusion: 07/06/25 15:20 Dose: Infused Documented By: Admin: 07/06/25 14:10 Dose: 999 mls/hr Documented By: IAN Pantoprazole Sodium (Protonix/Ns 80mg Iv Premix) 80 mg in 100 mls @ 10 mls/hr IV Q10H [facility] Stop: 07/09/25 12:45 Last Admin: 07/08/25 20:08 Dose: Not Given Documented By: RONDA Non-Admin Reason: NO IV ACCESS Infusion: 07/08/25 12:15 Dose: 0 mls/hr Documented By: Admin: 07/08/25 02:21 Dose: 10 mls/hr Documented By: Infusion: 07/07/25 21:50 Dose: Infused Documented By: Admin: 07/07/25 11:50 Dose: 10 mls/hr Documented By: Infusion: 07/07/25 09:50 Dose: Infused Documented By: Admin: 07/06/25 23:50 Dose: 10 mls/hr Documented By: Infusion: 07/06/25 23:50 Dose: Infused Documented By: Admin: 07/06/25 14:57 Dose: 10 mls/hr Documented By: BRENDEN Ceftriaxone Sodium/Dextrose (Rocephin/D5w 1gm Iv Premix) 1 gm in 50 mls @ 100 mls/hr IV QDAY [facility] Stop: 07/13/25 14:48 Last Admin: 07/09/25 09:48 Dose: Not Given Documented By: DONALD Non-Admin Reason: no IV access Admin: 07/08/25 09:45 Dose: 100 mls/hr Documented By: Infusion: 07/07/25 12:20 Dose: Infused Documented By: Admin: 07/07/25 11:50 Dose: 100 mls/hr Documented By: Infusion: 07/06/25 15:59 Dose: Infused Documented By: Admin: 07/06/25 15:19 Dose: 100 mls/hr Documented By: BRENDEN Albumin Human (Albuminar-25 Ivpb) 25 gm in 100 mls @ 100 mls/min IV PRN PRN PRN Reason: dialysis Stop: 07/10/25 08:22 Last Admin: 07/07/25 08:29 Dose: 100 mls/min Documented By: STEWART Albumin Human (Albuminar-25 Ivpb) 25 gm in 100 mls @ 100 mls/hr IV X1 ONE Stop: 07/08/25 09:25 Last Admin: 07/08/25 10:12 Dose: 100 mls/hr Documented By: DONALD Insulin Human Lispro (Insulin Lispro (Admelog) 1 Unit/0.01 Ml Unit) 0 unit SC AC ERIC; Protocol Stop: 08/05/25 16:59 Last Admin: 07/09/25 17:05 Dose: Not Given Documented By: DONALD Non-Admin Reason: Per Protocol Admin: 07/09/25 12:23 Dose: Not Given Documented By: DONALD Non-Admin Reason: Per Protocol Admin: 07/09/25 07:00 Dose: Not Given Documented By: DONALD Non-Admin Reason: Per Protocol Admin: 07/08/25 17:02 Dose: Not Given Documented By: HEMANTH Non-Admin Reason: Not In Room Admin: 07/08/25 12:00 Dose: Not Given Documented By: DONALD Non-Admin Reason: Per Protocol Admin: 07/08/25 09:18 Dose: Not Given Documented By: DONALD Non-Admin Reason: Per Protocol Admin: 07/07/25 18:30 Dose: Not Given Documented By: LACEY Non-Admin Reason: Per Protocol Admin: 07/07/25 11:51 Dose: Not Given Documented By: CARYN Non-Admin Reason: blood sugar 99 Admin: 07/07/25 06:00 Dose: Not Given Documented By: CARYN Non-Admin Reason: Q6 blood sugar order.npo Admin: 07/06/25 17:06 Dose: Not Given Documented By: BRENDEN Non-Admin Reason: Per Protocol Labetalol HCl (Labetalol 100 Mg Tablet) 100 mg PO X1 ONE Stop: 07/08/25 10:00 Last Admin: 07/08/25 10:45 Dose: 100 mg Documented By: DONALD Labetalol HCl (Labetalol 100 Mg Tablet) 100 mg PO QDAY ERIC Stop: 08/08/25 08:59 Last Admin: 07/09/25 08:07 Dose: Not Given Documented By: HEMANTH Non-Admin Reason: Vital Signs Comments: dose given at 0530 Labetalol HCl (Labetalol 100 Mg Tablet) 100 mg PO X1 ONE Stop: 07/09/25 05:31 Last Admin: 07/09/25 05:38 Dose: 100 mg Documented By: RONDA Labetalol HCl (Labetalol 100 Mg Tablet) Confirm Administered Dose 100 mg .ROUTE .STK-MED ONE Stop: 07/09/25 05:38 Last Admin: 07/09/25 05:56 Dose: Not Given Documented By: RONDA Non-Admin Reason: Override Medication Labetalol HCl (Labetalol 100 Mg Tablet) 50 mg PO QDAY ERIC Stop: 08/08/25 08:59 Labetalol HCl (Labetalol 100 Mg Tablet) 50 mg PO Q48H ERIC Stop: 08/09/25 09:59 Lidocaine (Lidocaine 5% 1 Patch) 1 patch TOP X1 ONE Stop: 07/06/25 16:07 Last Admin: 07/06/25 17:04 Dose: 1 patch Documented By: BRENDEN Midazolam HCl (Midazolam Inj 1 Mg/Ml Vial 2 Ml) 2 mg IVP Q2M PRN PRN Reason: Moderate Sedation Stop: 07/07/25 18:19 Midazolam HCl (Midazolam Inj 1 Mg/Ml Vial 2 Ml) Confirm Administered Dose 4 mg .ROUTE .STK-MED ONE Stop: 07/07/25 16:28 Midazolam HCl (Midazolam Inj 1 Mg/Ml Vial 2 Ml) Confirm Administered Dose 2 mg .ROUTE .[facility]-MED ONE Stop: 07/07/25 16:28 Ondansetron HCl (Ondansetron Inj 2 Mg/Ml Inj 2 Ml) 4 mg IVP Q6H PRN; Protocol PRN Reason: NAUSEA OR VOMITING Stop: 08/05/25 15:54 Last Admin: 07/09/25 14:02 Dose: 4 mg Documented By: ERIC Pantoprazole Sodium (Pantoprazole Inj 40 Mg Vial) 80 mg IVP X1 ONE Stop: 07/06/25 14:46 Last Admin: 07/06/25 14:54 Dose: 80 mg Documented By: BRENDEN Pantoprazole Sodium (Pantoprazole Inj 40 Mg Vial) 40 mg IVP Q12HR ERIC Stop: 08/05/25 20:59 Patiromer (Patiromer Calcium 8.4 Gm Packet) 4.2 gm PO X1 ONE Stop: 07/06/25 16:24 Last Admin: 07/06/25 20:53 Dose: Not Given Documented By: ALISA Non-Admin Reason: Medication Not Available Sevelamer Carbonate (Sevelamer Carbonate 0.8 Gm Packet (Non-Formulary)) 0.8 gm PO TIDWM [facility] Stop: 08/06/25 11:59 Last Admin: 07/09/25 17:28 Dose: 0.8 gm Documented By: Admin: 07/09/25 12:28 Dose: 0.8 gm Documented By: Admin: 07/09/25 09:37 Dose: 0.8 gm Documented By: Admin: 07/08/25 20:18 Dose: 0.8 gm Documented By: Admin: 07/08/25 13:33 Dose: 0.8 gm Documented By: Admin: 07/08/25 08:00 Dose: Not Given Documented By: DONALD Non-Admin Reason: Medication Not Available Admin: 07/07/25 19:00 Dose: 0.8 gm Documented By: Admin: 07/07/25 11:58 Dose: Not Given Documented By: CARYN Non-Admin Reason: NPO Sodium Polystyrene Sulfonate (Sod Polystyrene Sulfon Susp 15 Gm/60 Ml Btl) 30 gm PO X1 ONE Stop: 07/06/25 20:56 Last Admin: 07/06/25 22:12 Dose: 30 gm Documented By: ALISA Sucralfate (Sucralfate Susp 1 Gm/10 Ml Udc) 1 gm PO QID [facility] Stop: 08/06/25 17:14 Last Admin: 07/09/25 17:28 Dose: 1 gm Documented By: Admin: 07/09/25 12:28 Dose: 1 gm Documented By: Admin: 07/09/25 05:38 Dose: 1 gm Documented By: Admin: 07/08/25 20:19 Dose: 1 gm Documented By: Admin: 07/08/25 17:01 Dose: Not Given Documented By: HEMANTH Non-Admin Reason: Not In Room Admin: 07/08/25 13:32 Dose: 1 gm Documented By: Admin: 07/08/25 05:10 Dose: 1 gm Documented By: Admin: 07/07/25 21:33 Dose: 1 gm Documented By: Admin: 07/07/25 19:00 Dose: 1 gm Documented By: LACEY see mar Consultations Consultation(s) initiated? (list below): Yes Consultation #1 (Physician, Specialty, Details): will consult on scope tomorrow npo start protonic drip 1500 Diagnosis GI bleed differential diagnosis: hemorrhoids, Upper gastrointestinal hemorrhage, Lower gastrointestinal hemorrhage and melena Most likely diagnosis given after review of the tests above:: gi bleed Admission Indicated Admission indicated?: indicated Admission Request Was there a request for admission?: Yes Admission Attestation Admission request attestation: Discussed case with [] from Hospitalist service regarding admission. Discussed patients ED course, exam findings, labs, and radiology results. The Hospitalist [agrees,declines] to accept the patient for admission. Disposition Plan Disposition Plan: Admit Discharge Plan Plan Patient Disposition: Admit Acute Care w/in Hospital Problem List Clinical Impression: GI bleed, ESRD on dialysis, Pneumonia Patient/Caregiver Discharge Instructions Discharge Activity: activity as tolerated PA/[employer] Supervising Physician PA/[employer] Supervising Physician: christina
[2025-07-06 15:15] VITALS: BP 124/91; PULSE 110; RESP 16; TEMP 36.6; O2SAT 100
[2025-07-06] MEDS: cefTRIAXone/D5w 1gm IV premix 1 GM/50 ML BAG IV (15:19)
[2025-07-06 17:00] VITALS: BP 118/72; PULSE 110; RESP 18; TEMP 36.5; O2SAT 97
[2025-07-06] MEDS: LIDOCAINE 5% 1 PATCH TOP (17:04)
--- NOTE | 2025-07-06 18:23 | ESHP_ITS ---
<Statement entered by Yusuf Wells MD - 07/06/25 19:46> 65-year-old male with past medical history of ESRD on dialysis (follows Dr. Chadwick), DM, CRISTIANO, BPH, history of gastric bypass, recent history of surgical hip repair who presented to the ED from [facility] with coffee- ground emesis and black tarry stools. At bedside, patient only oriented to place and thus history obtained from chart review. Noted to have missed his previous dialysis session on Sunday. Heart rate 120 and hemoglobin 8.8, platelets 38. Per patient, does not take any anticoagulants but does take baby aspirin. CHEM panel consistent with ESRD with K of 5.7, BUN 55, creatinine 4, elevated alk phos of 435, and FOBT positive. 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 Started protonix drip and GI consulted for EGD for UGIB and nephrology consulted for ESRD with addition of veltassa for hyperkalemia. ----- Note reviewed and agree with care plan as documented. Please refer to the note below for further details. Plan discussed with attending physician Dr. Esa Wells MD PGY-2 Internal Medicine Documentation for date of: 07/06/25 HPI History of Present Illness History of present illness: 65-year-old male with a past medical history of ESRD on dialysis 3 times a week, diabetes, CRISTIANO, BPH, gastric bypass, hip fracture status post repair presented to the ED by ambulance from [facility] home with complaints of black tarry stools and coffee-ground emesis that started today. Patient did not attend his most previous dialysis session. ED course: CBC showed a white count of 8.9, hemoglobin was 8.8, hematocrit was 28, platelets 38. PT 12.4, INR 1.1, BNP showed a potassium of 5.7, BUN 55, creatinine 4. AST 45 ALT 23, alk phos 435, guaiac dual was positive for blood. Chest x-ray showed bilateral perihilar pneumonia. The patient had an EGD in February 2025 that showed stenosis at the GE junction, this was treated with dilation. There were several ulcers found during this EGD as well. A Protonix drip was started and a dose of Rocephin was given for pneumonia. GI was consulted and advised to keep patient n.p.o. for a scope on 07/07/2025. Home medications: Aspirin Cholecalciferol Dulcolax Fleet enema Hydrocodone acetaminophen Hydroxyzine Insulin aspart Maalox Midodrine Nortriptyline Sevelamer Sucralfate Vitamin B complex History: Past medical history: ESRD on dialysis Sunday Diabetes, CRISTIANO, BPH Surgical history: Gastric bypass, hip fracture status post repair Social history: Lives in a detention Review of Systems Review of Systems Narrative Review of Systems: Review of Systems: * General: Denies fevers, chills. * HEENT: Denies headache, congestion, or sore throat. * Cardiac: Denies chest pain or palpitations. * Pulmonary: Denies shortness of breath or cough. * GI: Denies nausea, vomiting, diarrhea, constipation, melena, or hematochezia. * : Denies dysuria, hematuria, frequency, or urgency. * MSK: Admits to lower back pain. * Neuro: Denies weakness, numbness, vision changes, or speech difficulty. Exam Vital Signs Temp Pulse Resp BP Pulse Ox O2 Del Method 97.7 F 110 H 18 118/72 97 Room Air 07/06/25 17:00 07/06/25 17:00 07/06/25 17:00 07/06/25 17:00 07/06/25 17:00 07/06/25 17:00 Narrative Exam General: Chronically ill-appearing man, pale. Awake and in no acute distress. Oriented to place. Melena in diaper. Neurologic: GCS 15. Alert and oriented x3, no gross neurological deficit, and patient able to move all 4 extremities. HEENT: Dark discoloration of the teeth. Normocephalic, atraumatic. Pupils reactive to light. Pale lower eyelids. Heart: Tachycardic, regular rhythm, normal S1 and S2, no murmurs. Lungs: Clear to auscultation bilaterally with no wheezing or crackles. Abdomen: Soft, nondistended, nontender, positive bowel sounds. No guarding or rebound tenderness. Extremities: Diffuse anasarca in the upper extremities bilaterally Skin: Warm. Dry. No rash or ecchymoses. Results: Labs 07/07/25 04:50 07/07/25 04:50 Labs: Short CBC 07/06/25 Range/Units 12:55 WBC 8.9 (3.8-10.6) Thou/mm3 Hgb 8.8 L (13.5-16.0) g/dL Hct 28.0 L (41.0-53.0) % Plt Count 300 D (140-440) Thou/mm3 BMP 07/06/25 12:55 Sodium 136 Potassium 5.7 H Chloride 98 Carbon Dioxide 23.7 BUN 55 H Creatinine 4.0 H D Glucose 109 H Calcium 9.3 Liver Function 07/06/25 Range/Units 12:55 Total Bilirubin 0.4 (0.3-1.2) mg/dL AST 45 H (0-34) U/L ALT 23 (10-49) U/L Alkaline Phosphatase 435 H (46-116) U/L Albumin 1.9 L (3.4-4.8) gm/dL Quality Measures Quality Measures none Medications Home Medications and Allergies Home Medications ?Medication ?Instructions ?Recorded ?Confirmed ?Type cholecalciferol (vitamin D3) 50 2,000 unit PO QDAY #0 caps 12/19/15 07/06/25 History mcg (2,000 unit) capsule (Vitamin D3) vitamin B complex 1 tab PO QDAY 04/01/1907/06 History nortriptyline 25 mg capsule 25 mg PO HS 11/12/2007/06 History hydroxyzine HCl 10 mg tablet 10 mg PO QPM PRN itching 03/07/24 07/06/25 History insulin aspart U-100 100 unit/mL 5 unit subcut AC 01/2607/06/25 History (3 mL) subcutaneous pen (Novolog FlexPen U-100 Insulin aspart) midodrine 10 mg tablet 10 mg PO TID 03/07/24 History sucralfate 100 mg/mL oral 10 ml PO Q6H 06/15/25 History suspension bisacodyl 10 mg rectal suppository 10 mg [place] QDAY PRN c onstipation 07/06/25 07/06/25 History (Dulcolax (bisacodyl)) sevelamer carbonate 0.8 gram oral 0.8 g PO TID 5 07/06/25 History powder packet (Renvela) sodium phosphates 19 gram-7 118 ml [place] QDAY PRN constip ation 07/06/25 07/06/25 History gram/118 mL enema (Enema) Allergies Allergy/AdvReac Type Severity Reaction Status Date / Time house dust Allergy Verified 06/14/25 18:06 Visit Medications Acetaminophen (Acetaminophen 325 Mg Tablet) 650 mg PO Q6H PRN PRN Reason: PAIN 1-3 OR FEVER > 100.4 Stop: 08/05/25 15:54 Hydrocodone Bitart/Acetaminophen (Hydrocodone/Apap 5/325 Tablet) 1 tab PO Q4HR PRN PRN Reason: PAIN SCALE 4-6 (Moderate Stop: 07/11/25 15:54 Dextrose (Dextrose 50%-Water Inj 50 Ml Syringe) 50 ml IV Q15MIN PRN PRN Reason: BG <50 OR BG <70 & pt unresponsive Stop: 08/05/25 16:08 Glucagon (Glucagon Inj 1 Mg Vial) 1 mg IM Q15MIN PRN PRN Reason: BG <70, and no IV access Hydromorphone HCl (Hydromorphone Inj 2 Mg/Ml Vial) 0.5 mg IVP Q2H PRN PRN Reason: Pain 7-10 Stop: 07/11/25 15:59 Pantoprazole Sodium (Protonix/Ns 80mg Iv Premix) 80 mg in 100 mls @ 10 mls/hr IV Q10H [facility] Stop: 07/09/25 12:45 Last Admin: 07/06/25 14:57 Dose: 10 mls/hr Ceftriaxone Sodium/Dextrose (Rocephin/D5w 1gm Iv Premix) 1 gm in 50 mls @ 100 mls/hr IV QDAY [facility] Stop: 07/13/25 14:48 Last Infusion: 07/06/25 15:59 Dose: Infused Insulin Human Lispro (Insulin Lispro (Admelog) 1 Unit/0.01 Ml Unit) 0 unit SC [facility]; Protocol Stop: 08/05/25 16:59 Last Admin: 07/06/25 17:06 Dose: Not Given Ondansetron HCl (Ondansetron Inj 2 Mg/Ml Inj 2 Ml) 4 mg IVP Q6H PRN; Protocol PRN Reason: NAUSEA OR VOMITING Stop: 08/05/25 15:54 Pantoprazole Sodium (Pantoprazole Inj 40 Mg Vial) 40 mg IVP Q12HR ERIC Stop: 08/05/25 20:59 Discontinued Medications Sodium Chloride (Ns) 1,000 mls @ 999 mls/hr IV .Q1H1M ONE Stop: 07/06/25 14:42 Last Infusion: 07/06/25 15:20 Dose: Infused Lidocaine (Lidocaine 5% 1 Patch) 1 patch TOP X1 ONE Stop: 07/06/25 16:07 Last Admin: 07/06/25 17:04 Dose: 1 patch Pantoprazole Sodium (Pantoprazole Inj 40 Mg Vial) 80 mg IVP X1 ONE Stop: 07/06/25 14:46 Last Admin: 07/06/25 14:54 Dose: 80 mg Patiromer (Patiromer Calcium 8.4 Gm Packet) 4.2 gm PO X1 ONE Stop: 07/06/25 16:24 Assessment & Plan Plan 65-year-old male with a past medical history of ESRD on dialysis 3 times a week, diabetes, CRISTIANO, BPH, gastric bypass, hip fracture status postrepair presented to the ED by ambulance from [facility] with black tarry stools and coffee-ground emesis. GI was consulted and plans to do EGD tomorrow. #Coffee-ground emesis #Melena #Anemia * The patient denies any nausea, coffee-ground emesis, or melena * Hemoglobin 8.8, down from 10.7 on last admission on 07/01/2025 * Patient had black discoloration of his teeth on physical exam * Patient had melena in his diaper, more suggestive of upper GI bleed * BP stable at 118/72 * Patient is pale on examination of lower eyelids, patient is also tachycardic, all evidence of anemia due to GI bleed Plan: * Protonix 40 mg IV every 12 * GI consulted, plan for EGD on 07/07/2025 * Trend hemoglobin with daily CBC * N.p.o. #ESRD on dialysis * Patient attends dialysis Sunday and Sunday, did not attend most previous Sunday * Creatinine 4.0 up from 2.5 on most recent visit from 07/01/2025 * BUN 55 up from 19 on most recent visit from 07/01/2025 Plan: * Nephrology consulted * Avoid nephrotoxic agents * Strict ins and outs #Hyperkalemia * Potassium 5.7 Plan: * Monitor potassium with daily labs * Was given 1 dose of Patiromer #Lower back pain * Patient is complaining of severe sacral pain Plan: * Lidocaine patch ordered * Sliding pain scale, nonnephrotoxic agents for pain #Diabetes * Glucose 109 * Most recent A1c was 5.4 on 06/15/2025 Plan: * Sliding scale insulin #Hip fracture status post repair * Patient was recently admitted for a mechanical ground-level fall involving an intertrochanteric fracture of the left hip Plan: * Sliding pain scale as above #Pneumonia * Chest x-ray on admission positive for bilateral bibasilar pneumonia Plan: * Ceftriaxone 1 g daily started on 07/06/2025 Health maintenance: Dispo: Tele Diet: N.p.o. DVT prophylaxis: SCDs, no chemical DVT prophylaxis due to GI bleed CODE STATUS: DNR/DNI per the patient Patient was seen and discussed with my attending physician Dr. See. Tonny Richards DO PGY-1. Attending Provider Attestation/Addendum I reviewed labs, imaging, EKG, home medications and prior available records. Face to face evaluation was performed by me. I have personally examined the patient and discussed assessment and plan with the IM team. I reviewed the resident note and agree with the plan with exceptions as below. Melena Acute on chronic anemia History of peptic ulcer disease ESRD on hemodialysis Started IV Protonix Monitor H&H Consulted nephrology for hemodialysis Monitor BMP
[2025-07-06 20:00] VITALS: BP 112/73; PULSE 109; PULSE 110; RESP 13; TEMP 36.3; O2SAT 96
--- NOTE | 2025-07-06 20:31 | PD.IMCONS ---
HPI Data of Consult Requesting Physician: Eleuterio See MD Primary Care Provider: Kassidy Molina MD Consult Narrative Reason for consult: Coffee-ground hematemesis, melena, drop in H&H. History of present illness: 65 years old male transported from [facility] for dark melanotic stools as well as coffee-ground hematemesis His hemoglobin hematocrit dropped to 8.8 and 38.0 baseline is about 10.5 Platelet count is 300,000 and pro time INR is 1.1 BUN/creatinine 55 and 4.0 as patient has end-stage renal disease on hemodialysis Sunday and Saturdays\ \Patient also has a history of diabetes mellitus type 2 obstructive sleep apnea BPH status post gastric bypass and right hip fracture requiring ORIF cc:: cc: Eleuterio See MD Review of Systems Review of Systems Systems Reviewed: All systems reviewed, normal except as documented Past Medical History Surgical History OTHER SURGICAL HX: As in the history of present illness Meds Home Medications and Allergies Home Medications ?Medication ?Instructions ?Recorded ?Confirmed ?Type cholecalciferol (vitamin D3) 50 2,000 unit PO QDAY #0 caps 12/19/15 06/15/25 History mcg (2,000 unit) capsule (Vitamin D3) vitamin B complex 1 tab PO QDAY 04/01/19 06/15/25 History nortriptyline 25 mg capsule 25 mg PO HS 11/12/20 06/15/25 History hydroxyzine HCl 10 mg tablet 10 mg PO QPM PRN itching 03/07/24 06/15/25 History insulin aspart U-100 100 unit/mL 5 unit subcut AC 03/07/24 06/15/25 History (3 mL) subcutaneous pen (Novolog FlexPen U-100 Insulin aspart) midodrine 10 mg tablet 10 mg PO TID 03/07/24 06/15/25 History sucralfate 100 mg/mL oral 10 ml PO Q6H 06/15/25 06/15/25 History suspension Allergies Allergy/AdvReac Type Severity Reaction Status Date / Time house dust Allergy Verified 06/14/25 18:06 Exam Vital Signs Temp Pulse Resp BP Pulse Ox O2 Del Method 97.7 F 110 H 18 118/72 97 Room Air 07/06/25 17:00 07/06/25 17:00 07/06/25 17:07/06/25 17:00 07/06/25 17:00 07/06/25 17:00 Constitutional Comments: Chronically ill-appearing Routine Respiratory Exam Comments: Normal to auscultation Routine Abdominal Exam Comments: Soft nontender Results Labs 07/06/25 12:55 07/06/25 12:55 Labs: Short CBC 07/06/25 Range/Units 12:55 WBC 8.9 (3.8-10.6) Thou/mm3 Hgb 8.8 L (13.5-16.0) g/dL Hct 28.0 L (41.0-53.0) % Plt Count 300 D (140-440) Thou/mm3 BMP 07/06/25 12:55 Sodium 136 Potassium 5.7 H Chloride 98 Carbon Dioxide 23.7 BUN 55 H Creatinine 4.0 H D Glucose 109 H Calcium 9.3 Liver Function 07/06/25 Range/Units 12:55 Total Bilirubin 0.4 (0.3-1.2) mg/dL AST 45 H (0-34) U/L ALT 23 (10-49) U/L Alkaline Phosphatase 435 H (46-116) U/L Albumin 1.9 L (3.4-4.8) gm/dL Assessment and Plan Additional Assessment & Plan Additional Plan: # Melena # Hematemesis # Acute posthemorrhagic anemia Plan Continue IV Protonix Serial CBC Blood transfusion if the hemoglobin drops below 7 g Clear liquid diet till 9 AM tomorrow then n.p.o. Consent obtained in the presence of the attending RN for fiberoptic esophagogastroduodenoscopy with possible biopsy possible therapeutic intervention under intravenous moderate sedation scheduled for tomorrow Other medical problems include BPH End-stage renal disease on hemodialysis TTS Diabetes mellitus type 2 Obstructive sleep apnea Status post hip fracture ORIF Thank you very much for the opportunity to participate in care of this patient
[2025-07-06] MEDS: HYDROcodone/APAP 5/325 TABLET 1 TAB PO (22:12)
[2025-07-06] MEDS: SOD POLYSTYRENE SULFON SUSP 15 GM/60 ML BTL 30 GM PO (22:12)
[2025-07-06 23:24] LABS: Albumin, Serum 2.0 gm/dL (3.4-4.8); Anion Gap 13 (7-16); BUN/Creatinine Ratio 11 Ratio (12-20); Blood Urea Nitrogen 48 mg/dL (9-23); Calcium 9.4 mg/dL (8.3-10.6); Calcium (Corrected) 11.0 mg/dL (8.5-10.1); Carbon Dioxide 24.8 mMol/L (20.0-31.0); Chloride 99 mMol/L (98-107); Creatinine (Component) 4.2 mg/dL (0.6-1.3); Estimated Creatinine Clearance 20.5 mL/min (>60); Glucose 115 mg/dL (74-106); Osmolality,Calculated 287 (275-295); Phosphorous 7.3 mg/dL (2.4-5.1); Potassium 5.1 mMol/L (3.4-5.1); Sodium 137 mMol/L (136-145); eGFR 15 See Note
[2025-07-07] VITALS (32 sets, daily range): BP systolic 78–156; BP diastolic 39–81; PULSE 70–121; RESP 8–19; TEMP 36.1–36.6; O2SAT 94–100; BMI 27.6
[2025-07-07] MEDS: HYDROmorphone INJ 2 MG/ML VIAL 0.5 MG IVP (02:12)
[2025-07-07 05:42] LABS: Basophils # (Auto) 0.0 Thou/mm3 (0.0-0.2); Basophils % (Auto) 0 % (0-2.5); Eosinophils # (Auto) 0.1 Thou/mm3 (0.0-0.5); Eosinophils % (Auto) 1 % (0-10); Hematocrit 27.0 % (41.0-53.0); Immature Granulocytes Auto 0.02 Thou/mm3 (0.00-0.00); Lymphocytes # (Auto) 2.1 Thou/mm3 (1.0-4.8); Lymphocytes % (Auto) 28 % (10-50); Mean Corpuscular HGB Conc 31.1 g/dl (31.0-37.0); Mean Corpuscular Hemoglobin 32.8 pg (25.0-35.0); Mean Corpuscular Volume 106 fL (80-100); Monocytes # (Auto) 0.5 Thou/mm3 (0.0-0.8); Monocytes % (Auto) 7 % (0-12); Neutrophils # (Auto) 4.8 Thou/mm3 (1.8-7.7); Neutrophils % (Auto) 64 % (37-80); Nucleated Red Blood Cell # 0.00 Thou/mm3 (0.00-0.00); Nucleated Red Blood Cell % 0 /100 WBC (0); Platelet Count 347 Thou/mm3 (140-440); RDW Standard Deviation 77.6 fL (35.1-43.9); Red Blood Count 2.56 Miln/mm3 (4.50-5.90); White Blood Count 7.5 Thou/mm3 (3.8-10.6)
[2025-07-07 05:54] LABS: Hemoglobin 8.4 g/dL (13.5-16.0)
[2025-07-07 06:19] LABS: Alanine Aminotransferase 20 U/L (10-49); Albumin, Serum 2.0 gm/dL (3.4-4.8); Albumin/Globulin Ratio 0.6 (1.2-2.2); Anion Gap 12 (7-16); Aspartate Amino Transferase 36 U/L (0-34); BUN/Creatinine Ratio 10 Ratio (12-20); Bilirubin,Total 0.3 mg/dL (0.3-1.2); Blood Urea Nitrogen 41 mg/dL (9-23); Calcium 9.6 mg/dL (8.3-10.6); Calcium (Corrected) 11.2 mg/dL (8.5-10.1); Carbon Dioxide 25.4 mMol/L (20.0-31.0); Cardiac Risk Estimate 4.2 RATIO (4.0-6.7); Chloride 99 mMol/L (98-107); Cholesterol 89 mg/dL (132-200); Creatinine (Component) 4.3 mg/dL (0.6-1.3); Estimated Creatinine Clearance 17.4 mL/min (>60); Globulin 3.5 gm/dL (2.3-3.5); Glucose 99 mg/dL (74-106); HDL Cholesterol 21 mg/dL (40-60); LDL Cholesterol,Calculated 21 mg/dL (0-130); Magnesium 2.1 mg/dL (1.6-2.6); Osmolality,Calculated 282 (275-295); Phosphorous 7.6 mg/dL (2.4-5.1); Potassium 5.0 mMol/L (3.4-5.1); Sodium 136 mMol/L (136-145); Thyroid Stimulating Hormone 5.95 uIU/mL (0.55-4.78); Total Protein 5.5 gm/dL (5.7-8.2); Triglycerides 236 mg/dL (30-150); eGFR 15 See Note
[2025-07-07 06:20] LABS: Alkaline Phosphatase 483 U/L (46-116)
[2025-07-07] MEDS: ALBUMIN HUMAN 25% IVPB 25 GM/100 ML BTL IV (08:29)
[2025-07-07 09:21] LABS: Iron 63 mcg/dL (65-175); Percent Iron Saturation 63 % (20-55); Total Iron Binding Capacity 100 mcg/dL (250-425); Unsaturated Iron Binding 37 (225-295)
--- NOTE | 2025-07-07 09:59 | PD.RESCONSUL ---
HPI Data of Consult Consult date: 07/07/25 Requesting Physician: Eleuterio See MD Admitting Provider: Eleuterio See MD Attending Provider: Eleuterio See MD Primary Care Provider: Kassidy Molina MD Consult Narrative Reason for consult: ESRD-need for hemodialysis History of present illness: Mr. Gonzalez is a 65 y/o M with PMHx significant for ESRD (//Sun) with Dr. Chadwick( Dr. edwin camargo ) at [facility] , diabetes, CRISTIANO, BPH, gastric bypass,and recent history of surgical b/l hip repair, presented to the ED on 07/06/2025 from [facility] with coffee-ground emesis and black tarry stools. Patient missed sunday's dialysis session last week. ED course: CBC showed a white count of 8.9, hemoglobin was 8.8, hematocrit was 28, platelets 38. PT 12.4, INR 1.1, BNP showed a potassium of 5.7, BUN 55, creatinine 4. AST 45 ALT 23, alk phos 435, guaiac dual was positive for blood. Chest x-ray showed bilateral perihilar pneumonia. The patient had an EGD in February 2025 that showed stenosis at the GE junction, this was treated with dilation. There were several ulcers found during this EGD as well. Protonix drip was started and a dose of Rocephin was given for pneumonia. Medical history: As stated above Surgical history: Gastric bypass, hip fracture status post repair Allergies: MKDA Family history: Noncontributory Social history: Denies alcohol, tobacco, illicit drug use. 07/07/2025: Nephrology consulted for ESRD and need for dialysis. Labs reviewed and patient examined at the bedside. Patient noted that he has been attending hemodialysis sessions sunday, , and at [facility] [place]. Patient has normal work of breathing. On exam, he has bilateral upper extremeity edema in the forearms. Patient has normal work of breathing. BP: 119/73, Cr: 4.3 eGFR: 15, BUN: 41 cc:: cc: Eleuterio See MD Review of Systems Review of Systems Narrative Review of Systems: General: Denies fevers or chills HEENT: Denies congestion or sore throat Heart: Denies chest pain or palpitations Lungs: Denies shortness of breath or cough Abdomen: Denies nausea, vomiting, constipation. Endorses coffee-ground emesis and black tarry stools. Genitourinary: Denies frequency, urgency, dysuria, or hematuria Neurology: Denies any changes in vision or difficulty speaking, or Upper and lower extremity weakness. Review of systems otherwise negative except what is mentioned above. Past Medical History Past Medical History NEUROLOGIC: Positive Transient Ischemic Attacks (TIA); Negative Neurological Disorders or Seizures CARDIAC: Positive Hypercholesterolemia and Hypertension; Negative Cardiac Disorders or Congestive Heart Failure RESPIRATORY: Positive Asthma, Pneumonia and Sleep Apnea; Negative Chronic Obstructive Pulmonary Disease (COPD) GASTROINTESTINAL: Positive Gastrointestinal Disorders, Ulcer and Gastroesophageal Reflux Disease GENITOURINARY: Positive Genitourinary Disorders, Renal Disease, Kidney Stones and Dialysis MUSCULOSKELETAL: Positive Musculoskeletal Disorders and Arthritis ENT: Negative Cataracts ENDOCRINE: Positive Endocrine Disorders, Diabetes Mellitus Type 2 and Hypoglycemia; Negative Diabetes Mellitus Type 1 HEMATOLOGIC: Positive Anemia; Negative Blood Disorders or Sickle Cell Disease OTHER HISTORY: Positive Falls, Chicken Pox, Measles and Mumps; Negative Autoimmune Disease, Blood Transfusions, Anesthesia Reactions or Cancer Family History FAMILY HISTORY: Positive Family Respiratory Disorders; Negative Family Cancer Surgical History SURGICAL: Positive Tonsillectomy, Gastric Bypass Surgery, Nephrectomy and Hip Sx (BILAT) OTHER SURGICAL HX: As in the history of present illness Social History SMOKING STATUS: Unknown if ever smoked SECOND HAND EXPOSURE: No Exam Vital Signs Temp Pulse Resp BP Pulse Ox O2 Del Method O2 Flow Rate 97.7 F 110 H 15 107/59 L 96 Nasal Cannula 2 07/07/25 08:00 07/07/25 09:45 07/07/25 08:00 07/07/25 09:45 07/07/25 08:00 07/07/25 08:00 07/07/25 08:00 Narrative Exam General: Chronically ill appearing. On dialysis Eye: PERRL, EOMI, normal conjunctiva, no scleral icterus HENT: Normocephalic, atraumatic, hearing intact to conversation at normal volume, moist oral mucosa Neck: Supple, non-tender, no JVD, no lymphadenopathy Lungs: Non-labored respirations, symmetric chest rise, Expiratory Wheezing on ausculatation. Heart: Peripheral pulses intact bilaterally, Regular Rate and Rhythm Abdomen: Soft, non-tender, non-distended Musculoskeletal: Edema on bilateral forearms. +1 pitting edema on bilateral lower extremties. In bed Skin: Skin is warm, dry. Contusions on bilateral forearms. Fistula ++ Psychiatric: goes back to lseep quickly Neuro: alert, awake, goes back to sleep. Results Labs 07/08/25 19:23 07/08/25 05:48 Labs: Short CBC 07/06/25 07/07/25 Range/Units 12:55 04:50 WBC 8.9 7.5 (3.8-10.6) Thou/mm3 Hgb 8.8 L 8.4 L (13.5-16.0) g/dL Hct 28.0 L 27.0 L (41.0-53.0) % Plt Count 300 D 347 D (140-440) Thou/mm3 BMP 07/06/25 07/06/25 07/07/25 12:55 22:53 04:50 Sodium 136 137 136 Potassium 5.7 H 5.1 D 5.0 Chloride 98 99 99 Carbon Dioxide 23.7 24.8 25.4 BUN 55 H 48 H 41 H Creatinine 4.0 H D 4.2 H* 4.3 H* Glucose 109 H 115 H 99 Calcium 9.3 9.4 9.6 Liver Function 07/06/25 07/06/25 07/07/25 Range/Units 12:55 22:53 04:50 Total Bilirubin 0.4 0.3 (0.3-1.2) mg/dL AST 45 H 36 H (0-34) U/L ALT 23 20 (10-49) U/L Alkaline Phosphatase 435 H 483 H D (46-116) U/L Albumin 1.9 L 2.0 L 2.0 L (3.4-4.8) gm/dL Quality Measures Quality Measures none Medications Home Medications and Allergies Home Medications ?Medication ?Instructions ?Recorded ?Confirmed ?Type cholecalciferol (vitamin D3) 50 2,000 unit PO QDAY #0 caps 12/19/15 07/06/25 History mcg (2,000 unit) capsule (Vitamin D3) vitamin B complex 1 tab PO QDAY 04/01/19 07/06/25 History nortriptyline 25 mg capsule 25 mg PO HS 11/12/20 07/06/25 History hydroxyzine HCl 10 mg tablet 10 mg PO QPM PRN itching 03/07/24 07/06/25 History insulin aspart U-100 100 unit/mL 5 unit subcut AC 03/07/24 07/06/25 History (3 mL) subcutaneous pen (Novolog FlexPen U-100 Insulin aspart) midodrine 10 mg tablet 10 mg PO TID 03/07/24 07/06/25 History sucralfate 100 mg/mL oral 10 ml PO Q6H 06/15/25 07/06/25 History suspension bisacodyl 10 mg rectal suppository 10 mg AL QDAY PRN constipation 07/06/25 07/06/25 History (Dulcolax (bisacodyl)) sevelamer carbonate 0.8 gram oral 0.8 g PO TID 07/06/25 07/06/25 History powder packet (Renvela) sodium phosphates 19 gram-7 118 ml AL QDAY PRN constipation 07/06/25 07/06/25 History gram/118 mL enema (Enema) Allergies Allergy/AdvReac Type Severity Reaction Status Date / Time house dust Allergy Verified 06/14/25 18:06 Visit Medications Acetaminophen (Acetaminophen 325 Mg Tablet) 650 mg PO Q6H PRN PRN Reason: PAIN 1-3 OR FEVER > 100.4 Stop: 08/05/25 15:54 Hydrocodone Bitart/Acetaminophen (Hydrocodone/Apap 5/325 Tablet) 1 tab PO Q4HR PRN PRN Reason: PAIN SCALE 4-6 (Moderate Stop: 07/11/25 15:54 Last Admin: 07/06/25 22:12 Dose: 1 tab Dextrose (Dextrose 50%-Water Inj 50 Ml Syringe) 50 ml IV Q15MIN PRN PRN Reason: BG <50 OR BG <70 & pt unresponsive Stop: 08/05/25 16:08 Epoetin Larry (Epoetin Larry-Epbx Inj 10,000 Unit/Ml Vial (Esrd)) 10,000 unit SC X1 ONE Stop: 07/07/25 10:31 Folic Acid (Folic Acid Inj 1 Mg/0.2 Ml) 1 mg IVP QDAY ERIC Stop: 08/06/25 08:59 Glucagon (Glucagon Inj 1 Mg Vial) 1 mg IM Q15MIN PRN PRN Reason: BG <70, and no IV access Heparin Sodium (Porcine) (Heparin Sod Inj 1000 Unit/Ml Vial 10 Ml) 3,500 unit INDWELLCAT X1 PRN PRN Reason: DIALYSIS Stop: 07/10/25 08:22 Hydromorphone HCl (Hydromorphone Inj 2 Mg/Ml Vial) 0.5 mg IVP Q2H PRN PRN Reason: Pain 7-10 Stop: 07/11/25 15:59 Last Admin: 07/07/25 02:12 Dose: 0.5 mg Pantoprazole Sodium (Protonix/Ns 80mg Iv Premix) 80 mg in 100 mls @ 10 mls/hr IV Q10H PENDING SALE TO [facility] Stop: 07/09/25 12:45 Last Admin: 07/06/25 23:50 Dose: 10 mls/hr Ceftriaxone Sodium/Dextrose (Rocephin/D5w 1gm Iv Premix) 1 gm in 50 mls @ 100 mls/hr IV QDAY PENDING SALE TO [facility] Stop: 07/13/25 14:48 Last Infusion: 07/06/25 15:59 Dose: Infused Albumin Human (Albuminar-25 Ivpb) 25 gm in 100 mls @ 100 mls/min IV PRN PRN PRN Reason: dialysis Stop: 07/10/25 08:22 Last Admin: 07/07/25 08:29 Dose: 100 mls/min Insulin Human Lispro (Insulin Lispro (Admelog) 1 Unit/0.01 Ml Unit) 0 unit SC AC ERIC; Protocol Stop: 08/05/25 16:59 Last Admin: 07/07/25 06:00 Dose: Not Given Ondansetron HCl (Ondansetron Inj 2 Mg/Ml Inj 2 Ml) 4 mg IVP Q6H PRN; Protocol PRN Reason: NAUSEA OR VOMITING Stop: 08/05/25 15:54 Pantoprazole Sodium (Pantoprazole Inj 40 Mg Vial) 40 mg IVP Q12HR PENDING SALE TO [facility] Stop: 08/05/25 20:59 Discontinued Medications Cyanocobalamin (Cyanocobalamin Inj 1,000 Mcg/Ml Vial) 1,000 mcg IM X1 ONE Stop: 07/07/25 07:59 Sodium Chloride (Ns) 1,000 mls @ 999 mls/hr IV .Q1H1M ONE Stop: 07/06/25 14:42 Last Infusion: 07/06/25 15:20 Dose: Infused Lidocaine (Lidocaine 5% 1 Patch) 1 patch TOP X1 ONE Stop: 07/06/25 16:07 Last Admin: 07/06/25 17:04 Dose: 1 patch Pantoprazole Sodium (Pantoprazole Inj 40 Mg Vial) 80 mg IVP X1 ONE Stop: 07/06/25 14:46 Last Admin: 07/06/25 14:54 Dose: 80 mg Patiromer (Patiromer Calcium 8.4 Gm Packet) 4.2 gm PO X1 ONE Stop: 07/06/25 16:24 Last Admin: 07/06/25 20:53 Dose: Not Given Sodium Polystyrene Sulfonate (Sod Polystyrene Sulfon Susp 15 Gm/60 Ml Btl) 30 gm PO X1 ONE Stop: 07/06/25 20:56 Last Admin: 07/06/25 22:12 Dose: 30 gm Assessment & Plan Plan Mr. Gonzalez is a 65 y/o M with PMHx significant for ESRD (/Sun) with Dr. Chadwick at [facility], diabetes, CRISTIANO, BPH, gastric bypass,and recent history of surgical hip repair, presented to the ED on 07/06/2025 from [facility] with coffee-ground emesis and black tarry stools. Patient was consulted for management of ESRD on hemodialysis. #ESRD on hemodialysis (//Sun) -Follows with director of creative services Dr. Chadwick at [facility]. -Did not attend Last week sunday's hemodialysis session. -On admission: Cr:4.0, eGFR:16, Hgb: 8.8 -CXR (07/06/2025): Bilateral perihilar basilar pneumonia -BP: 119/73 Cr: 4.3 BUN: 41, eGFR: 15 -Hemodialysis sessions: 07/07 Plan: -Monitor renal function -Maintain fluid restriction, avoid nephrotoxic agents when possible, renally dose medications -Strict i and o -Hemodialysis today. #Coffee-ground emesis-- EGD pending today #Melena #Anemia #renal osteodystrophy- add binders, low Ca bath #Hyperkalemia- on HD #Lower back pain #Diabetes #Hip fracture status post repair #Pneumonia- on ABx Management per Primary Care team Assessment and plan discussed with my attending physician Dr. Edwin Rosen (PGY-1)- Internal medicine resident Attending Provider Attestation/Addendum Patient seen and examined with resident physician Dr. Rosen. Note reviewed, agree with findings and recommendations. Patient currently seen on dialysis. Tolerating dialysis without any problems. Hemodialysis for 3 hours, 2K, ultrafiltration 2-3 L, Epogen 6000, no heparin ordered. Plan of care discussed with the dialysis nurse. Please see dialysis flowsheet for further details. Thank you Dr. See for allowing me to participate in the care of Mr. Gonzalez
[2025-07-07] MEDS: EPOETIN ALFA-EPBX INJ 10,000 UNIT/ML VIAL (ESRD) 10000 UNIT SC (11:13)
[2025-07-07] MEDS: HEPARIN SOD INJ 1000 UNIT/ML VIAL 10 ML 3500 UNIT INDWELLCAT (11:24)
[2025-07-07] MEDS: PANTOPRAZOLE/NS 80MG IV PREMIX 80 MG/100 ML BAG 10 MG IV (11:50)
[2025-07-07] MEDS: cefTRIAXone/D5w 1gm IV premix 1 GM/50 ML BAG IV (11:50)
[2025-07-07] MEDS: FOLIC ACID INJ 1 MG/0.2 ML IVP (11:52)
--- NOTE | 2025-07-07 14:31 | ESPR_ITS ---
<Statement entered by Yusuf Wells MD - 07/07/25 18:08> No acute overnight events. Patient underwent dialysis today without complications as well as EGD that showed esophageal ulcers that were nonbleeding but biopsied. Per GI, recommended to continue Protonix drip with sucralfate suspension 1 g 4 times daily and Maalox 50 mL p.o. every 4 hours. Hemoglobin slight downtrend from 8.8 to 8.4 and continues to be tachycardic. Anticipate discharge within next 48 hours. ----- Note reviewed and agree with care plan as documented. Please refer to the note below for further details. Plan discussed with attending physician Dr. Esa Wells MD PGY-2 Internal Medicine Documentation for date of: 07/07/25 Subjective Subjective Interval history: No overnight events. Hemoglobin continues to downtrend, most recent is 8.4 from 8.8. Patient is scheduled for dialysis and EGD today. Exam Vital Signs Temp Pulse Resp BP Pulse Ox O2 Del Method O2 Flow Rate 97.5 F 110 H 17 119/73 96 Nasal Cannula 3 07/07/25 12:00 07/07/25 12:00 07/07/25 12:00 07/07/25 12:00 07/07/25 12:00 07/07/25 12:00 07/07/25 12:00 Narrative Exam The patient was not physically examined by me on 07/07/2025. The patient was either at dialysis or in his EGD procedure. Objective Labs 07/07/25 04:50 07/07/25 04:50 Labs: Laboratory Results - last 24 hr 07/06/25 07/06/25 07/07/25 12:55 22:53 04:50 WBC 7.5 RBC 2.56 L Hgb 8.4 L Hct 27.0 L MCV 106 H MCH 32.8 MCHC 31.1 RDW Std Deviation 77.6 H Plt Count 347 D Neut % (Auto) 64 Lymph % (Auto) 28 Bates % (Auto) 7 Eos % (Auto) 1 Baso % (Auto) 0 Neut # (Auto) 4.8 Lymph # (Auto) 2.1 Bates # (Auto) 0.5 Eos # (Auto) 0.1 Baso # (Auto) 0.0 Immature Gran # (Auto) 0.02 H Absolute Nucleated RBC 0.00 Immature Gran % 0 Nucleated RBC % 0 Sodium 137 136 Potassium 5.1 D 5.0 Chloride 99 99 Carbon Dioxide 24.8 25.4 Anion Gap 13 12 BUN 48 H 41 H Creatinine 4.2 H* 4.3 H* Estim Creat Clear Calc 20.5 L 17.4 L eGFR 15 L 15 L BUN/Creatinine Ratio 11 L 10 L Glucose 115 H 99 Calculated Osmolality 287 282 Calcium 9.4 9.6 Corrected Calcium 11.0 H 11.2 H Phosphorus 7.3 H 7.6 H Magnesium 2.1 Iron TIBC Iron Saturation Unsat Iron Binding Total Bilirubin 0.3 AST 36 H ALT 20 Alkaline Phosphatase 483 H D Total Protein 5.5 L Albumin 2.0 L 2.0 L Globulin 3.5 Albumin/Globulin Ratio 0.6 L Triglycerides 236 H Cholesterol 89 L LDL Cholesterol, Calc 21 HDL Cholesterol 21 L Cholesterol/HDL Ratio 4.2 TSH 5.95 H Blood Type B Positive Antibody Screen NEGATIVE 07/07/25 08:46 WBC RBC Hgb Hct MCV MCH MCHC RDW Std Deviation Plt Count Neut % (Auto) Lymph % (Auto) Bates % (Auto) Eos % (Auto) Baso % (Auto) Neut # (Auto) Lymph # (Auto) Bates # (Auto) Eos # (Auto) Baso # (Auto) Immature Gran # (Auto) Absolute Nucleated RBC Immature Gran % Nucleated RBC % Sodium Potassium Chloride Carbon Dioxide Anion Gap BUN Creatinine Estim Creat Clear Calc eGFR BUN/Creatinine Ratio Glucose Calculated Osmolality Calcium Corrected Calcium Phosphorus Magnesium Iron 63 L TIBC 100 L Iron Saturation 63 H Unsat Iron Binding 37 L Total Bilirubin AST ALT Alkaline Phosphatase Total Protein Albumin Globulin Albumin/Globulin Ratio Triglycerides Cholesterol LDL Cholesterol, Calc HDL Cholesterol Cholesterol/HDL Ratio TSH Blood Type Antibody Screen Quality Measures Quality Measures none Assessment & Plan Assessment Current Active Medications: Generic Name Dose Route Start Last Admin Trade Name Freq PRN Reason Stop Dose Admin Acetaminophen 650 mg 07/06/25 15:55 Acetaminophen 325 Mg Tablet PO 08/05/25 15:54 Q6H PRN PAIN 1-3 OR FEVER > 100.4 Hydrocodone Bitart/Acetaminophen 1 tab 07/06/25 15:55 07/06/25 22:12 Hydrocodone/Apap 5/325 Tablet PO 07/11/25 15:54 1 tab Q4HR PRN Administration PAIN SCALE 4-6 (Moderate Dextrose 50 ml 07/06/25 16:09 Dextrose 50%-Water Inj 50 Ml Syringe IV 08/05/25 16:08 Q15MIN PRN BG <50 OR BG <70 & pt unresponsive Folic Acid 1 mg 07/07/25 09:00 07/07/25 11:52 Folic Acid Inj 1 Mg/0.2 Ml IVP 08/06/25 08:59 1 mg QDAY ERIC Administration Glucagon 1 mg 07/06/25 16:09 Glucagon Inj 1 Mg Vial IM Q15MIN PRN BG <70, and no IV access Hydromorphone HCl 0.5 mg 07/06/25 16:00 07/07/25 02:12 Hydromorphone Inj 2 Mg/Ml Vial IVP 07/11/25 15:59 0.5 mg Q2H PRN Administration Pain 7-10 Pantoprazole Sodium 80 mg in 100 mls @ 10 mls/hr 07/06/25 14:46 07/07/25 11:50 Protonix/Ns 80mg Iv Premix IV 07/09/25 12:45 10 mls/hr Q10H ERIC Administration Ceftriaxone Sodium/Dextrose 1 gm in 50 mls @ 100 mls/hr 07/06/25 14:49 07/07/25 11:50 Rocephin/D5w 1gm Iv Premix IV 07/13/25 14:48 100 mls/hr QDAY ERIC Administration Albumin Human 25 gm in 100 mls @ 100 mls/min 07/07/25 08:23 07/07/25 08:29 Albuminar-25 Ivpb IV 07/10/25 08:22 100 mls/min PRN PRN Administration dialysis Insulin Human Lispro 0 unit 07/06/25 17:00 07/07/25 11:51 Insulin Lispro (Admelog) 1 Unit/0.01 Ml Unit SC 08/05/25 16:59 Not Given AC ERIC Protocol Ondansetron HCl 4 mg 07/06/25 15:55 Ondansetron Inj 2 Mg/Ml Inj 2 Ml IVP 08/05/25 15:54 Q6H PRN NAUSEA OR VOMITING Protocol Pantoprazole Sodium 40 mg 07/06/25 21:00 Pantoprazole Inj 40 Mg Vial IVP 08/05/25 20:59 Q12HR ERIC Sevelamer Carbonate 0.8 gm 07/07/25 12:00 07/07/25 11:58 Sevelamer Carbonate 0.8 Gm Packet (Non-Formulary) PO 08/06/25 11:59 Not Given TIDWM ERIC Plan 65-year-old male with a past medical history of ESRD on dialysis 3 times a week, diabetes, CRISTIANO, BPH, gastric bypass, hip fracture status postrepair presented to the ED by ambulance from [facility] with black tarry stools and coffee-ground emesis. GI was consulted and plans to do EGD tomorrow. #Coffee-ground emesis #Melena #Upper GI bleed pending EGD #Macrocytic anemia * The patient denies any nausea, coffee-ground emesis, or melena on admission * Hemoglobin 8.4 down from 8.8 * Patient had black discoloration of his teeth on physical exam * Patient had melena in his diaper on presentation, more suggestive of upper GI bleed * BP stable, 106/81 * Patient is pale on examination of lower eyelids, patient is also tachycardic, all evidence of anemia due to GI bleed * MCV 106, iron panel showed an iron level of 63, TIBC of 100, saturated iron of 63, unsaturated iron of 37 Plan: * Protonix 40 mg IV every 12 * GI consulted, plan for EGD on 07/07/2025 * Trend hemoglobin with daily CBC, will transfuse if drops below 7 * B12 and folate given * N.p.o. #ESRD on dialysis * Patient attends dialysis Sunday and Sunday, did not attend most previous Sunday * Creatinine 4.3 up from 4.0, BUN 41 from 55 Plan: * Nephrology consulted * Dialysis today * Avoid nephrotoxic agents * Strict ins and outs #Acute Hyperkalemia * Potassium 5.0 from 5.7 Plan: * Dialysis today * Monitor potassium with daily labs * Goal potassium below 5.1 #Hyperphosphatemia * Phosphate 7.6 from 7.3 Plan: * Restart home sevelamer * Trend phosphate #Lower back pain * Patient is complaining of severe sacral pain Plan: * Continue lidocaine patch * Sliding pain scale, nonnephrotoxic agents for pain #Diabetes * Glucose 99 * Most recent A1c was 5.4 on 06/15/2025 Plan: * Sliding scale insulin * Glucose checks every 6 #Hip fracture status post repair * Patient was recently admitted for a mechanical ground-level fall involving an intertrochanteric fracture of the left hip Plan: * Sliding pain scale as above #Community acquired pneumonia * Chest x-ray on admission positive for bilateral bibasilar pneumonia Plan: * Ceftriaxone 1 g daily started on 07/06/2025 Health maintenance: Dispo: Tele, dialysis and EGD planned for today Diet: N.p.o. DVT prophylaxis: SCDs, no chemical DVT prophylaxis due to GI bleed CODE STATUS: DNR/DNI per the patient Patient was seen and discussed with my attending physician Dr. See. Tonny Richards DO PGY-1. Attending Provider Attestation/Addendum I reviewed labs, imaging, EKG, home medications and prior available records. Face to face evaluation was performed by me. I have personally examined the patient and discussed assessment and plan with the IM team. I reviewed the resident note and agree with the plan with exceptions as below. Melena Acute on chronic anemia History of peptic ulcer disease ESRD on hemodialysis Started IV Protonix Monitor H&H: Stable Consulted nephrology for hemodialysis Monitor BMP Consulted GI: Plan for EGD
--- NOTE | 2025-07-07 14:32 | PC.NURSE ---
Consent obtained for EGD from patient. Report given to Mary Ann.
--- NOTE | 2025-07-07 15:42 | PC.SS ---
Patient is a resident of [facility]. Patient is altered at this time. SS spoke to patient's sister, Maisha. Maisha confirmed d/c plans. Maisha also states she prefers for her brother, Praveen, to now be the alt decision maker for patient. Maisha is currently having health problems. Patient is an established dialysis patient with Dr. Chadwick every //Sun. Patient is on 02. Alt medical decision maker: Praveen Gonzalez, brother, . d/c plan: return to [facility]
[2025-07-07] MEDS: DEXTROSE 50%-WATER INJ 50 ML SYRINGE IV (18:15)
[2025-07-07] MEDS: MG HYD/AL HYD/SIME (Maalox Reg) SUSP 30 ML UDC 15 ML PO ×2 (18:59→21:32)
[2025-07-07] MEDS: SEVELAMER CARBONATE 0.8 GM PACKET (NON-FORMULARY) PO (19:00)
[2025-07-07] MEDS: SUCRALFATE SUSP 1 GM/10 ML UDC PO ×2 (19:00→21:33)
[2025-07-07 19:57] LABS: Glucose 321 mg/dL (74-106)
[2025-07-08] VITALS (24 sets, daily range): BP systolic 105–147; BP diastolic 33–77; PULSE 85–120; RESP 14–18; TEMP 36.1–36.9; O2SAT 93–100; BMI 27.7; BMI 27.8
[2025-07-08] MEDS: PANTOPRAZOLE/NS 80MG IV PREMIX 80 MG/100 ML BAG 10 MG IV (02:21)
[2025-07-08] MEDS: MG HYD/AL HYD/SIME (Maalox Reg) SUSP 30 ML UDC 15 ML PO ×3 (05:10→20:19)
[2025-07-08] MEDS: SUCRALFATE SUSP 1 GM/10 ML UDC PO ×3 (05:10→20:19)
[2025-07-08 06:10] LABS: Basophils # (Auto) 0.0 Thou/mm3 (0.0-0.2); Basophils % (Auto) 0 % (0-2.5); Eosinophils # (Auto) 0.1 Thou/mm3 (0.0-0.5); Eosinophils % (Auto) 1 % (0-10); Immature Granulocytes Auto 0.02 Thou/mm3 (0.00-0.00); Lymphocytes # (Auto) 1.5 Thou/mm3 (1.0-4.8); Lymphocytes % (Auto) 27 % (10-50); Mean Corpuscular HGB Conc 30.7 g/dl (31.0-37.0); Mean Corpuscular Hemoglobin 32.6 pg (25.0-35.0); Mean Corpuscular Volume 106 fL (80-100); Monocytes # (Auto) 0.7 Thou/mm3 (0.0-0.8); Monocytes % (Auto) 12 % (0-12); Neutrophils # (Auto) 3.3 Thou/mm3 (1.8-7.7); Neutrophils % (Auto) 59 % (37-80); Nucleated Red Blood Cell # 0.03 Thou/mm3 (0.00-0.00); Nucleated Red Blood Cell % 1 /100 WBC (0); Platelet Count 290 Thou/mm3 (140-440); RDW Standard Deviation 75.4 fL (35.1-43.9); Red Blood Count 1.81 Miln/mm3 (4.50-5.90); White Blood Count 5.5 Thou/mm3 (3.8-10.6)
[2025-07-08 06:20] LABS: Hemoglobin 5.9 g/dL (13.5-16.0)
[2025-07-08 06:21] LABS: Hematocrit 19.2 % (41.0-53.0)
[2025-07-08 06:38] LABS: Alanine Aminotransferase 16 U/L (10-49); Albumin, Serum 1.9 gm/dL (3.4-4.8); Albumin/Globulin Ratio 0.7 (1.2-2.2); Alkaline Phosphatase 324 U/L (46-116); Anion Gap 13 (7-16); Aspartate Amino Transferase 22 U/L (0-34); BUN/Creatinine Ratio 10 Ratio (12-20); Bilirubin,Total 0.3 mg/dL (0.3-1.2); Blood Urea Nitrogen 31 mg/dL (9-23); Calcium 9.2 mg/dL (8.3-10.6); Calcium (Corrected) 10.9 mg/dL (8.5-10.1); Carbon Dioxide 28.3 mMol/L (20.0-31.0); Chloride 99 mMol/L (98-107); Creatinine (Component) 3.1 mg/dL (0.6-1.3); Estimated Creatinine Clearance 26.1 mL/min (>60); Globulin 2.8 gm/dL (2.3-3.5); Glucose 116 mg/dL (74-106); Osmolality,Calculated 286 (275-295); Potassium 3.6 mMol/L (3.4-5.1); Sodium 140 mMol/L (136-145); Total Protein 4.7 gm/dL (5.7-8.2); eGFR 22 See Note
[2025-07-08 08:19] LABS: Hematocrit 19.6 % (41.0-53.0); Hemoglobin 6.1 g/dL (13.5-16.0)
[2025-07-08 09:15] LABS: Ferritin 1881 ng/mL (10.5-307.3)
--- NOTE | 2025-07-08 09:32 | PD.RESPRO ---
Documentation for date of: 07/08/25 Subjective Subjective Interval history: Reason for consult: ESRD-need for hemodialysis History of present illness: Mr. Gonzalez is a 65 y/o M with PMHx significant for ESRD () with Dr. Chadwick( Dr. edwin camargo ) at [facility] , diabetes, CRISTIANO, BPH, gastric bypass,and recent history of surgical b/l hip repair, presented to the ED on 07/06/2025 from [facility] with coffee-ground emesis and black tarry stools. Patient missed sunday's dialysis session last week. ED course: CBC showed a white count of 8.9, hemoglobin was 8.8, hematocrit was 28, platelets 38. PT 12.4, INR 1.1, BNP showed a potassium of 5.7, BUN 55, creatinine 4. AST 45 ALT 23, alk phos 435, guaiac dual was positive for blood. Chest x-ray showed bilateral perihilar pneumonia. The patient had an EGD in February 2025 that showed stenosis at the GE junction, this was treated with dilation. There were several ulcers found during this EGD as well. Protonix drip was started and a dose of Rocephin was given for pneumonia. Medical history: As stated above Surgical history: Gastric bypass, hip fracture status post repair Allergies: MKDA Family history: Noncontributory Social history: Denies alcohol, tobacco, illicit drug use. 07/07/2025: Nephrology consulted for ESRD and need for dialysis. Labs reviewed and patient examined at the bedside. Patient noted that he has been attending hemodialysis sessions sunday, , and at [facility]. Patient has normal work of breathing. On exam, he has bilateral upper extremeity edema in the forearms. Patient has normal work of breathing. BP: 119/73, Cr: 4.3 eGFR: 15, BUN: 41 07/08/2025: EGD result yesterday showed esophageal ulcers,evidence of gastric bypass, and non-bleeding gastric ulcer with a clean ulcer base. Continue Albumin 25 g IV 100ml/hr prn, Labetalol 100mg PO x1 given for hypotension. Patient has no other complaints at this time. Hemodialysis planned for tomorrow. 120/56, Cr. 3.1 GFR:22 Exam Vital Signs Temp Pulse Resp BP Pulse Ox O2 Del Method O2 Flow Rate 98.5 F 119 H 14 147/66 H 95 Nasal Cannula 2 07/08/25 08:00 07/08/25 08:00 07/08/25 08:00 07/08/25 08:00 07/08/25 08:00 07/08/25 08:00 07/08/25 08:00 Narrative Exam General: Chronically ill appearing. On dialysis Eye: PERRL, EOMI, normal conjunctiva, no scleral icterus HENT: Normocephalic, atraumatic, hearing intact to conversation at normal volume, moist oral mucosa Neck: Supple, non-tender, no JVD, no lymphadenopathy Lungs: Non-labored respirations, symmetric chest rise, Expiratory Wheezing on ausculatation. Heart: Peripheral pulses intact bilaterally, Regular Rate and Rhythm Abdomen: Soft, non-tender, non-distended Musculoskeletal: Edema on bilateral forearms. +1 pitting edema on bilateral lower extremties. In bed Skin: Skin is warm, dry. Contusions on bilateral forearms. Fistula ++ Psychiatric: goes back to eep quickly Neuro: alert, awake, goes back to sleep. Objective Labs 07/08/25 19:23 07/08/25 05:48 Labs: Laboratory Results - last 24 hr 07/06/25 07/07/25 07/08/25 12:55 18:58 05:48 WBC 5.5 RBC 1.81 L* Hgb 5.9 L* D Hct 19.2 L* MCV 106 H MCH 32.6 MCHC 30.7 L RDW Std Deviation 75.4 H Plt Count 290 D Neut % (Auto) 59 Lymph % (Auto) 27 [place] % (Auto) 12 Eos % (Auto) 1 Baso % (Auto) 0 Neut # (Auto) 3.3 Lymph # (Auto) 1.5 [place] # (Auto) 0.7 Eos # (Auto) 0.1 Baso # (Auto) 0.0 Immature Gran # (Auto) 0.02 H Absolute Nucleated RBC 0.03 H Immature Gran % 0 Nucleated RBC % 1 H Sodium 140 Potassium 3.6 D Chloride 99 Carbon Dioxide 28.3 Anion Gap 13 BUN 31 H Creatinine 3.1 H D Estim Creat Clear Calc 26.1 L eGFR 22 L BUN/Creatinine Ratio 10 L Glucose 321 H D 116 H D Calculated Osmolality 286 Calcium 9.2 Corrected Calcium 10.9 H Ferritin Total Bilirubin 0.3 AST 22 ALT 16 Alkaline Phosphatase 324 H D Total Protein 4.7 L Albumin 1.9 L Globulin 2.8 Albumin/Globulin Ratio 0.7 L Blood Type B Positive Antibody Screen NEGATIVE Crossmatch See Detail Blood Bank Wristband ID Yes 07/08/25 07:40 WBC RBC Hgb 6.1 L* Hct 19.6 L* MCV MCH MCHC RDW Std Deviation Plt Count Neut % (Auto) Lymph % (Auto) [place] % (Auto) Eos % (Auto) Baso % (Auto) Neut # (Auto) Lymph # (Auto) [place] # (Auto) Eos # (Auto) Baso # (Auto) Immature Gran # (Auto) Absolute Nucleated RBC Immature Gran % Nucleated RBC % Sodium Potassium Chloride Carbon Dioxide Anion Gap BUN Creatinine Estim Creat Clear Calc eGFR BUN/Creatinine Ratio Glucose Calculated Osmolality Calcium Corrected Calcium Ferritin 1881 H Total Bilirubin AST ALT Alkaline Phosphatase Total Protein Albumin Globulin Albumin/Globulin Ratio Blood Type Antibody Screen Crossmatch Blood Bank Wristband ID Quality Measures Quality Measures none Assessment & Plan Assessment Current Active Medications: Generic Name Dose Route Start Last Admin Trade Name Freq PRN Reason Stop Dose Admin Acetaminophen 650 mg 07/06/25 15:55 Acetaminophen 325 Mg Tablet PO 08/05/25 15:54 Q6H PRN PAIN 1-3 OR FEVER > 100.4 Hydrocodone Bitart/Acetaminophen 1 tab 07/06/25 15:55 07/06/25 22:12 Hydrocodone/Apap 5/325 Tablet PO 07/11/25 15:54 1 tab Q4HR PRN Administration PAIN SCALE 4-6 (Moderate Al Hydrox/Mg Hydrox/Simethicone 15 ml 07/07/25 17:15 07/08/25 05:10 Mg Hyd/Al Hyd/Remberto (Maalox Reg) Susp 30 Ml Udc PO 08/06/25 17:14 15 ml QID ERIC Administration Dextrose 50 ml 07/06/25 16:09 07/07/25 18:15 Dextrose 50%-Water Inj 50 Ml Syringe IV 08/05/25 16:08 50 ml Q15MIN PRN Administration BG <50 OR BG <70 & pt unresponsive Folic Acid 1 mg 07/07/25 09:00 07/07/25 11:52 Folic Acid Inj 1 Mg/0.2 Ml IVP 08/06/25 08:59 1 mg QDAY ERIC Administration Glucagon 1 mg 07/06/25 16:09 Glucagon Inj 1 Mg Vial IM Q15MIN PRN BG <70, and no IV access Hydromorphone HCl 0.5 mg 07/06/25 16:00 07/07/25 02:12 Hydromorphone Inj 2 Mg/Ml Vial IVP 07/11/25 15:59 0.5 mg Q2H PRN Administration Pain 7-10 Pantoprazole Sodium 80 mg in 100 mls @ 10 mls/hr 07/06/25 14:46 07/08/25 02:21 Protonix/Ns 80mg Iv Premix IV 07/09/25 12:45 10 mls/hr Q10H ERIC Administration Ceftriaxone Sodium/Dextrose 1 gm in 50 mls @ 100 mls/hr 07/06/25 14:49 07/07/25 11:50 Rocephin/D5w 1gm Iv Premix IV 07/13/25 14:48 100 mls/hr QDAY ERIC Administration Albumin Human 25 gm in 100 mls @ 100 mls/min 07/07/25 08:23 07/07/25 08:29 Albuminar-25 Ivpb IV 07/10/25 08:22 100 mls/min PRN PRN Administration dialysis Insulin Human Lispro 0 unit 07/06/25 17:00 07/08/25 09:18 Insulin Lispro (Admelog) 1 Unit/0.01 Ml Unit SC 08/05/25 16:59 Not Given AC ERIC Protocol Ondansetron HCl 4 mg 07/06/25 15:55 Ondansetron Inj 2 Mg/Ml Inj 2 Ml IVP 08/05/25 15:54 Q6H PRN NAUSEA OR VOMITING Protocol Pantoprazole Sodium 40 mg 07/06/25 21:00 Pantoprazole Inj 40 Mg Vial IVP 08/05/25 20:59 Q12HR ERIC Sevelamer Carbonate 0.8 gm 07/07/25 12:00 07/07/25 19:00 Sevelamer Carbonate 0.8 Gm Packet (Non-Formulary) PO 08/06/25 11:59 0.8 gm TIDWM ERIC Administration Sucralfate 1 gm 07/07/25 17:15 07/08/25 05:10 Sucralfate Susp 1 Gm/10 Ml Udc PO 08/06/25 17:14 1 gm QID ERIC Administration Plan Mr. Gonzalez is a 65 y/o M with PMHx significant for ESRD (/Sun) with Dr. Chadwick at [facility], diabetes, CRISTIANO, BPH, gastric bypass,and recent history of surgical hip repair, presented to the ED on 07/06/2025 from [facility] with coffee-ground emesis and black tarry stools. Patient was consulted for management of ESRD on hemodialysis. #ESRD on hemodialysis (//Sun) -Follows with [facility] Dr. Chadwick at [facility]. -Did not attend Last sunday's hemodialysis session. -On admission: Cr:4.0, eGFR:16, Hgb: 8.8 -CXR (07/06/2025): Bilateral perihilar basilar pneumonia -BP: 119/73 Cr: 4.3 BUN: 41, eGFR: 15 -Hemodialysis sessions: 07/07 Plan: -Monitor renal function -Maintain fluid restriction, avoid nephrotoxic agents when possible, renally dose medications -Strict i and o -Hemodialysis Planned for tomorrow. #Coffee-ground emesis-- EGD pending today #Melena #Anemia #renal osteodystrophy- add binders, low Ca bath #Hyperkalemia- on HD #Lower back pain #Diabetes #Hip fracture status post repair #Pneumonia- on ABx Management per Primary Care team Assessment and plan discussed with my attending physician Dr. Edwin Rosen (PGY-1)- Internal medicine resident Attending Provider Attestation/Addendum Patient seen and examined with resident physician Dr. Rosen. Note reviewed, agree with findings and recommendations. Patient has difficult venous access and unable to give blood. Decided to proceed with short on her dialysis and blood transfusion due to severe anemia. Patient consented. Patient on dialysis. Tolerating dialysis without any problems. Hemodialysis for 2 hours, 2K, ultrafiltration 2L, Epogen 6000, no heparin ordered. 2 units PRBC ordered with dialysis Plan of care discussed with the dialysis nurse. Please see dialysis flowsheet for further details. Spoke to residents. Thank you Dr. See for allowing me to participate in the care of Mr. Gonzalez
[2025-07-08] MEDS: cefTRIAXone/D5w 1gm IV premix 1 GM/50 ML BAG IV (09:45)
[2025-07-08] MEDS: FOLIC ACID INJ 1 MG/0.2 ML IVP (09:46)
[2025-07-08] MEDS: ALBUMIN HUMAN 25% IVPB 25 GM/100 ML BTL IV (10:12)
[2025-07-08] MEDS: LABETALOL 100 MG TABLET PO (10:45)
--- NOTE | 2025-07-08 11:37 | ESPR_ITS ---
<Statement entered by Yusuf Wells MD - 07/08/25 13:01> No acute overnight events. Seen and examined at bedside and he does not have any complaints. Per nursing staff, no BMs as of yet. A.m. labs showed hemoglobin of 5.9 and repeat H&H showed 6.1, thus will transfuse 1 unit PRBC. Also remained tachycardic in the low 100s and so labetalol on a milligrams given x 1 and heart rate improved to 90s. Will continue to monitor signs of blood loss and follow-up with recommendations from GI. Per nephrology, will undergo dialysis tomorrow. ----- Note reviewed and agree with care plan as documented. Please refer to the note below for further details. Plan discussed with attending physician Dr. Esa Wells MD PGY-2 Internal Medicine Documentation for date of: 07/08/25 Subjective Subjective Interval history: Patient's hemoglobin dropped to 6.1 overnight, will transfuse 1 unit pRBCs. Patient is tachycardic and hypertensive, beta-amanda ordered. Will change albumin frequency to daily. Exam Vital Signs Temp Pulse Resp BP Pulse Ox O2 Del Method O2 Flow Rate 98.5 F 117 H 14 140/69 H 95 Nasal Cannula 2 07/08/25 08:00 07/08/25 10:45 07/08/25 08:00 07/08/25 10:45 07/08/25 08:00 07/08/25 08:00 07/08/25 08:00 Narrative Exam General: Chronically ill-appearing pale man. Awake and in no acute distress. Oriented to place. Melena in diaper. Neurologic: Alert and oriented x3, no gross neurological deficit, and patient able to move all 4 extremities. HEENT: Dark discoloration of the teeth. Normocephalic, atraumatic. Pupils reactive to light. Pale lower eyelids. Heart: Tachycardic, regular rhythm, normal S1 and S2, no murmurs. Lungs: Clear to auscultation bilaterally with no wheezing or crackles. Abdomen: Soft, nondistended, nontender, positive bowel sounds. No guarding or rebound tenderness. Extremities: Diffuse anasarca in the upper extremities bilaterally with weeping. No lower extremity edema. Left knee previous surgical scar. Skin: Warm. Dry. No rash or ecchymoses. Objective Labs 07/08/25 07:40 07/08/25 05:48 Labs: Laboratory Results - last 24 hr 07/06/25 07/07/25 07/08/25 12:55 18:58 05:48 WBC 5.5 RBC 1.81 L* Hgb 5.9 L* D Hct 19.2 L* MCV 106 H MCH 32.6 MCHC 30.7 L RDW Std Deviation 75.4 H Plt Count 290 D Neut % (Auto) 59 Lymph % (Auto) 27 [place] % (Auto) 12 Eos % (Auto) 1 Baso % (Auto) 0 Neut # (Auto) 3.3 Lymph # (Auto) 1.5 [place] # (Auto) 0.7 Eos # (Auto) 0.1 Baso # (Auto) 0.0 Immature Gran # (Auto) 0.02 H Absolute Nucleated RBC 0.03 H Immature Gran % 0 Nucleated RBC % 1 H Sodium 140 Potassium 3.6 D Chloride 99 Carbon Dioxide 28.3 Anion Gap 13 BUN 31 H Creatinine 3.1 H D Estim Creat Clear Calc 26.1 L eGFR 22 L BUN/Creatinine Ratio 10 L Glucose 321 H D 116 H D Calculated Osmolality 286 Calcium 9.2 Corrected Calcium 10.9 H Ferritin Total Bilirubin 0.3 AST 22 ALT 16 Alkaline Phosphatase 324 H D Total Protein 4.7 L Albumin 1.9 L Globulin 2.8 Albumin/Globulin Ratio 0.7 L Blood Type B Positive Antibody Screen NEGATIVE Crossmatch See Detail Blood Bank Wristband ID Yes 07/08/25 07:40 WBC RBC Hgb 6.1 L* Hct 19.6 L* MCV MCH MCHC RDW Std Deviation Plt Count Neut % (Auto) Lymph % (Auto) [place] % (Auto) Eos % (Auto) Baso % (Auto) Neut # (Auto) Lymph # (Auto) [place] # (Auto) Eos # (Auto) Baso # (Auto) Immature Gran # (Auto) Absolute Nucleated RBC Immature Gran % Nucleated RBC % Sodium Potassium Chloride Carbon Dioxide Anion Gap BUN Creatinine Estim Creat Clear Calc eGFR BUN/Creatinine Ratio Glucose Calculated Osmolality Calcium Corrected Calcium Ferritin 1881 H Total Bilirubin AST ALT Alkaline Phosphatase Total Protein Albumin Globulin Albumin/Globulin Ratio Blood Type Antibody Screen Crossmatch Blood Bank Wristband ID Quality Measures Quality Measures none Assessment & Plan Assessment Current Active Medications: Generic Name Dose Route Start Last Admin Trade Name Freq PRN Reason Stop Dose Admin Acetaminophen 650 mg 07/06/25 15:55 Acetaminophen 325 Mg Tablet PO 08/05/25 15:54 Q6H PRN PAIN 1-3 OR FEVER > 100.4 Hydrocodone Bitart/Acetaminophen 1 tab 07/06/25 15:55 07/06/25 22:12 Hydrocodone/Apap 5/325 Tablet PO 07/11/25 15:54 1 tab Q4HR PRN Administration PAIN SCALE 4-6 (Moderate Al Hydrox/Mg Hydrox/Simethicone 15 ml 07/07/25 17:15 07/08/25 05:10 Mg Hyd/Al Hyd/Remberto (Maalox Reg) Susp 30 Ml Udc PO 08/06/25 17:14 15 ml QID ERIC Administration Dextrose 50 ml 07/06/25 16:09 07/07/25 18:15 Dextrose 50%-Water Inj 50 Ml Syringe IV 08/05/25 16:08 50 ml Q15MIN PRN Administration BG <50 OR BG <70 & pt unresponsive Folic Acid 1 mg 07/07/25 09:00 07/08/25 09:46 Folic Acid Inj 1 Mg/0.2 Ml IVP 08/06/25 08:59 1 mg QDAY ERIC Administration Glucagon 1 mg 07/06/25 16:09 Glucagon Inj 1 Mg Vial IM Q15MIN PRN BG <70, and no IV access Hydromorphone HCl 0.5 mg 07/06/25 16:00 07/07/25 02:12 Hydromorphone Inj 2 Mg/Ml Vial IVP 07/11/25 15:59 0.5 mg Q2H PRN Administration Pain 7-10 Pantoprazole Sodium 80 mg in 100 mls @ 10 mls/hr 07/06/25 14:46 07/08/25 02:21 Protonix/Ns 80mg Iv Premix IV 07/09/25 12:45 10 mls/hr Q10H ERIC Administration Ceftriaxone Sodium/Dextrose 1 gm in 50 mls @ 100 mls/hr 07/06/25 14:49 07/08/25 09:45 Rocephin/D5w 1gm Iv Premix IV 07/13/25 14:48 100 mls/hr QDAY ERIC Administration Albumin Human 25 gm in 100 mls @ 100 mls/min 07/07/25 08:23 07/07/25 08:29 Albuminar-25 Ivpb IV 07/10/25 08:22 100 mls/min PRN PRN Administration dialysis Insulin Human Lispro 0 unit 07/06/25 17:00 07/08/25 09:18 Insulin Lispro (Admelog) 1 Unit/0.01 Ml Unit SC 08/05/25 16:59 Not Given AC ERIC Protocol Ondansetron HCl 4 mg 07/06/25 15:55 Ondansetron Inj 2 Mg/Ml Inj 2 Ml IVP 08/05/25 15:54 Q6H PRN NAUSEA OR VOMITING Protocol Pantoprazole Sodium 40 mg 07/06/25 21:00 Pantoprazole Inj 40 Mg Vial IVP 08/05/25 20:59 Q12HR ERIC Sevelamer Carbonate 0.8 gm 07/07/25 12:00 07/08/25 08:00 Sevelamer Carbonate 0.8 Gm Packet (Non-Formulary) PO 08/06/25 11:59 Not Given TIDWM ERIC Sucralfate 1 gm 07/07/25 17:15 07/08/25 05:10 Sucralfate Susp 1 Gm/10 Ml Udc PO 08/06/25 17:14 1 gm QID ERIC Administration Plan 65-year-old male with a past medical history of ESRD on dialysis 3 times a week, diabetes, CRISTIANO, BPH, gastric bypass, hip fracture status postrepair presented to the ED by ambulance from [facility] with black tarry stools and coffee-ground emesis. GI was consulted and plans to do EGD tomorrow. #Coffee-ground emesis #Melena #Upper GI bleed #Macrocytic anemia * EGD on 07/08/2025 showed few linear esophageal ulcers at the GE junction, there was 1 nonbleeding cratered gastric ulcer with a clean ulcer base Desmond class III at the anastomosis of the previous gastric bypass surgery, the lesion was 25 mm in its largest dimension, a biopsy was taken. * The patient denied any nausea, coffee-ground emesis, or melena on admission, patient had black discoloration of his teeth on physical exam * Hemoglobin 6.1 * Patient had melena in his diaper on presentation, more suggestive of upper GI bleed * MCV 106, iron panel showed an iron level of 63, TIBC of 100, saturated iron of 63, unsaturated iron of 37 Plan: * GI recommends continuing Protonix drip, Sucralfate 1 g 4 times daily, and Maalox 50 mg orally every 4 hours, will continue these medications * Follow-up posttransfusion H&H * Continue folic acid 1 mg injection daily * N.p.o. #Sinus tachycardia #Hypertension * Patient's heart rate is 117, BP 140/69 * Patient takes midodrine 10 mg p.o. 3 times daily at home Plan: * 100 mg labetalol p.o. given once * Follow-up heart rate and blood pressure, consider continuing labetalol * Hold home midodrine #Hypoalbuminemia * Most recent albumin was 1.9, down from 2.0 * Considee in the presence of ESRD Plan: * Albumin 25 GM in 100 mL IV daily * Trend albumin #ESRD on dialysis * Patient attends dialysis Sunday and Sunday, did not attend most previous Sunday * Creatinine 4.3 up from 4.0, BUN 41 from 55 Plan: * Nephrology consulted * Avoid nephrotoxic agents * Strict ins and outs #Acute Hyperkalemia (Resolved) #Hyperphosphatemia * Phosphate 7.6 on 07/07/2025 Plan: * Continue home sevelamer #Lower back pain * Patient is complaining of severe sacral pain Plan: * Continue lidocaine patch * Sliding pain scale, nonnephrotoxic agents for pain #Diabetes * Glucose 116 * Most recent A1c was 5.4 on 06/15/2025 Plan: * Sliding scale insulin * Glucose checks twice daily #Hip fracture status post repair * Patient was recently admitted for a mechanical ground-level fall involving an intertrochanteric fracture of the left hip Plan: * Sliding pain scale as above #Community acquired pneumonia * Chest x-ray on admission positive for bilateral bibasilar pneumonia Plan: * Ceftriaxone 1 g daily started on 07/06/2025 Health maintenance: Dispo: Tele, transfusing 1 unit of PRBCs today, will follow-up posttransfusion H&H Diet: N.p.o. DVT prophylaxis: SCDs, no chemical DVT prophylaxis due to GI bleed CODE STATUS: DNR/DNI per the patient Patient was seen and discussed with my attending physician Dr. See. Tonny Richards DO PGY-1. Attending Provider Attestation/Addendum I reviewed labs, imaging, EKG, home medications and prior available records. Face to face evaluation was performed by me. I have personally examined the patient and discussed assessment and plan with the IM team. I reviewed the resident note and agree with the plan with exceptions as below. Melena Acute on chronic anemia History of peptic ulcer disease ESRD on hemodialysis Started IV Protonix Monitor H&H: S hemoglobin dropped to 6.1 for which 1 PRBC was ordered Status post EGD that showed esophageal ulcers and gastric ulcer s/p biopsy. Continue Protonix IV. Started Carafate and Maalox Consulted nephrology for hemodialysis Started labetalol given the uncontrolled BP and tachycardia Monitor BMP
[2025-07-08] MEDS: SEVELAMER CARBONATE 0.8 GM PACKET (NON-FORMULARY) PO ×2 (13:33→20:18)
--- NOTE | 2025-07-08 15:03 | PC.SS ---
rounding note: Pending transfusion
[2025-07-08 19:31] LABS: Hematocrit 24.4 % (41.0-53.0)
[2025-07-08 19:36] LABS: Hemoglobin 7.9 g/dL (13.5-16.0)
[2025-07-08] MEDS: BALSAM PERU/CASTOR OIL (Venelex) 60 GM TUBE TOP (20:18)
--- NOTE | 2025-07-08 20:31 | ESPR_ITS ---
Documentation for date of: 07/08/25 Subjective Subjective Interval history: Patient evaluated Hemoglobin hematocrit 7.9 and 24.4 Upper endoscopy showed anastomotic site gastric ulcer And distal esophageal ulceration Exam Vital Signs Temp Pulse Resp BP Pulse Ox O2 Del Method O2 Flow Rate 97.5 F 101 H 18 143/62 H 96 Nasal Cannula 2 07/08/25 18:17 07/08/25 18:17 07/08/25 18:17 07/08/25 18:17 07/08/25 18:17 07/08/25 12:00 07/08/25 18:17 Objective Labs 07/08/25 19:23 07/08/25 05:48 Labs: Laboratory Results - last 24 hr 07/06/25 07/08/25 07/08/25 12:55 05:48 07:40 WBC 5.5 RBC 1.81 L* Hgb 5.9 L* D 6.1 L* Hct 19.2 L* 19.6 L* MCV 106 H MCH 32.6 MCHC 30.7 L RDW Std Deviation 75.4 H Plt Count 290 D Neut % (Auto) 59 Lymph % (Auto) 27 [place] % (Auto) 12 Eos % (Auto) 1 Baso % (Auto) 0 Neut # (Auto) 3.3 Lymph # (Auto) 1.5 [place] # (Auto) 0.7 Eos # (Auto) 0.1 Baso # (Auto) 0.0 Immature Gran # (Auto) 0.02 H Absolute Nucleated RBC 0.03 H Immature Gran % 0 Nucleated RBC % 1 H Sodium 140 Potassium 3.6 D Chloride 99 Carbon Dioxide 28.3 Anion Gap 13 BUN 31 H Creatinine 3.1 H D Estim Creat Clear Calc 26.1 L eGFR 22 L BUN/Creatinine Ratio 10 L Glucose 116 H D Calculated Osmolality 286 Calcium 9.2 Corrected Calcium 10.9 H Ferritin 1881 H Total Bilirubin 0.3 AST 22 ALT 16 Alkaline Phosphatase 324 H D Total Protein 4.7 L Albumin 1.9 L Globulin 2.8 Albumin/Globulin Ratio 0.7 L Blood Type B Positive Antibody Screen NEGATIVE Crossmatch See Detail Blood Bank Wristband ID Yes 07/08/25 19:23 WBC RBC Hgb 7.9 L D Hct 24.4 L MCV MCH MCHC RDW Std Deviation Plt Count Neut % (Auto) Lymph % (Auto) [place] % (Auto) Eos % (Auto) Baso % (Auto) Neut # (Auto) Lymph # (Auto) [place] # (Auto) Eos # (Auto) Baso # (Auto) Immature Gran # (Auto) Absolute Nucleated RBC Immature Gran % Nucleated RBC % Sodium Potassium Chloride Carbon Dioxide Anion Gap BUN Creatinine Estim Creat Clear Calc eGFR BUN/Creatinine Ratio Glucose Calculated Osmolality Calcium Corrected Calcium Ferritin Total Bilirubin AST ALT Alkaline Phosphatase Total Protein Albumin Globulin Albumin/Globulin Ratio Blood Type Antibody Screen Crossmatch Blood Bank Wristband ID Impressions Impression: Anastomotic site ulceration Distal esophageal ulceration Continue PPIs and continue to monitor CBC Assessment & Plan A&P Narrative # Melena # Hematemesis # Acute posthemorrhagic anemia Plan Continue IV Protonix Serial CBC Blood transfusion if the hemoglobin drops below 7 g Clear liquid diet till 9 AM tomorrow then n.p.o. Consent obtained in the presence of the attending RN for fiberoptic esophagogastroduodenoscopy with possible biopsy possible therapeutic intervention under intravenous moderate sedation scheduled for tomorrow Other medical problems include BPH End-stage renal disease on hemodialysis TTS Diabetes mellitus type 2 Obstructive sleep apnea Status post hip fracture ORIF Thank you very much for the opportunity to participate in care of this patient Time Spent With Patient Time: Total time spent is greater than 50% in coordination of care (as documented) at patient's floor/unit and/or counseling patient:
[2025-07-09] VITALS (23 sets, daily range): BP systolic 95–183; BP diastolic 25–81; PULSE 83–110; RESP 12–20; TEMP 36.1–36.8; O2SAT 92–100
[2025-07-09] MEDS: HYDROcodone/APAP 5/325 TABLET 1 TAB PO (01:31)
--- NOTE | 2025-07-09 04:40 | PC.NURSE ---
[facility] 0200 to 0435.
--- NOTE | 2025-07-09 05:08 | PC.NURSE ---
DR VERONICA NOTIFIED OF PT'S BP 183/78 HR 100. PT DENIES PAIN. MD ORDERED TO RECHECKED BP 0530 AND CALL HER BACK.
[2025-07-09] MEDS: MG HYD/AL HYD/SIME (Maalox Reg) SUSP 30 ML UDC 15 ML PO ×3 (05:38→17:28)
[2025-07-09] MEDS: LABETALOL 100 MG TABLET PO (05:38)
[2025-07-09] MEDS: SUCRALFATE SUSP 1 GM/10 ML UDC PO ×3 (05:38→17:28)
[2025-07-09 08:08] LABS: Basophils # (Auto) 0.0 Thou/mm3 (0.0-0.2); Basophils % (Auto) 0 % (0-2.5); Eosinophils # (Auto) 0.1 Thou/mm3 (0.0-0.5); Eosinophils % (Auto) 2 % (0-10); Hematocrit 25.4 % (41.0-53.0); Immature Granulocytes Auto 0.02 Thou/mm3 (0.00-0.00); Lymphocytes # (Auto) 1.7 Thou/mm3 (1.0-4.8); Lymphocytes % (Auto) 27 % (10-50); Mean Corpuscular HGB Conc 32.3 g/dl (31.0-37.0); Mean Corpuscular Hemoglobin 32.5 pg (25.0-35.0); Mean Corpuscular Volume 101 fL (80-100); Monocytes # (Auto) 0.6 Thou/mm3 (0.0-0.8); Monocytes % (Auto) 10 % (0-12); Neutrophils # (Auto) 3.7 Thou/mm3 (1.8-7.7); Neutrophils % (Auto) 61 % (37-80); Nucleated Red Blood Cell # 0.02 Thou/mm3 (0.00-0.00); Nucleated Red Blood Cell % 0 /100 WBC (0); Platelet Count 227 Thou/mm3 (140-440); RDW Standard Deviation 74.4 fL (35.1-43.9); Red Blood Count 2.52 Miln/mm3 (4.50-5.90); White Blood Count 6.2 Thou/mm3 (3.8-10.6)
[2025-07-09 08:16] LABS: Hemoglobin 8.2 g/dL (13.5-16.0)
[2025-07-09 08:26] LABS: Alanine Aminotransferase 16 U/L (10-49); Albumin, Serum 1.9 gm/dL (3.4-4.8); Albumin/Globulin Ratio 0.7 (1.2-2.2); Alkaline Phosphatase 283 U/L (46-116); Anion Gap 11 (7-16); Aspartate Amino Transferase 19 U/L (0-34); BUN/Creatinine Ratio 7 Ratio (12-20); Bilirubin,Total 0.5 mg/dL (0.3-1.2); Blood Urea Nitrogen 20 mg/dL (9-23); Calcium 9.1 mg/dL (8.3-10.6); Calcium (Corrected) 10.8 mg/dL (8.5-10.1); Carbon Dioxide 28.7 mMol/L (20.0-31.0); Chloride 101 mMol/L (98-107); Creatinine (Component) 2.7 mg/dL (0.6-1.3); Estimated Creatinine Clearance 29.6 mL/min (>60); Globulin 2.7 gm/dL (2.3-3.5); Glucose 115 mg/dL (74-106); Osmolality,Calculated 284 (275-295); Potassium 3.5 mMol/L (3.4-5.1); Sodium 141 mMol/L (136-145); Total Protein 4.6 gm/dL (5.7-8.2); eGFR 26 See Note
[2025-07-09] MEDS: BALSAM PERU/CASTOR OIL (Venelex) 60 GM TUBE TOP (09:00)
--- NOTE | 2025-07-09 09:35 | PD.RESPRO ---
Documentation for date of: 07/09/25 Subjective Subjective Interval history: Reason for consult: ESRD-need for hemodialysis History of present illness: Mr. Gonzalez is a 65 y/o M with PMHx significant for ESRD () with Dr. Chadwick( Dr. edwin camargo ) at [facility] , diabetes, CRISTIANO, BPH, gastric bypass,and recent history of surgical b/l hip repair, presented to the ED on 07/06/2025 from [facility] with coffee-ground emesis and black tarry stools. Patient missed sunday's dialysis session last week. ED course: CBC showed a white count of 8.9, hemoglobin was 8.8, hematocrit was 28, platelets 38. PT 12.4, INR 1.1, BNP showed a potassium of 5.7, BUN 55, creatinine 4. AST 45 ALT 23, alk phos 435, guaiac dual was positive for blood. Chest x-ray showed bilateral perihilar pneumonia. The patient had an EGD in February 2025 that showed stenosis at the GE junction, this was treated with dilation. There were several ulcers found during this EGD as well. Protonix drip was started and a dose of Rocephin was given for pneumonia. Medical history: As stated above Surgical history: Gastric bypass, hip fracture status post repair Allergies: MKDA Family history: Noncontributory Social history: Denies alcohol, tobacco, illicit drug use. 07/07/2025: Nephrology consulted for ESRD and need for dialysis. Labs reviewed and patient examined at the bedside. Patient noted that he has been attending hemodialysis sessions sunday, , and at [facility]. Patient has normal work of breathing. On exam, he has bilateral upper extremeity edema in the forearms. Patient has normal work of breathing. BP: 119/73, Cr: 4.3 eGFR: 15, BUN: 41 07/08/2025: EGD result yesterday showed esophageal ulcers,evidence of gastric bypass, and non-bleeding gastric ulcer with a clean ulcer base. Continue Albumin 25 g IV 100ml/hr prn, Labetalol 100mg PO x1 given for hypotension. Patient has no other complaints at this time. Hemodialysis planned for tomorrow. 120/56, Cr. 3.1 GFR:22 07/09/2025: Patient endorses generalized weakness and feels extremely tired. Patient received 1 units of blood transfusion yesterday as Hgb dropped to 7.0. Planned for hemodialysis today. Will receive 1 more units of blood transfusion. BP: 95/56, Cr: 2.7 eGFR: 26 Exam Vital Signs Temp Pulse Resp BP Pulse Ox O2 Del Method O2 Flow Rate 97.6 F 88 12 95/56 L 100 Nasal Cannula 2 07/09/25 08:00 07/09/25 08:07 07/09/25 08:00 07/09/25 08:07 07/09/25 08:00 07/09/25 08:00 07/09/25 08:00 Narrative Exam General: Chronically ill appearing. Tired looking, generalized weakness. On dialysis Eye: PERRL, EOMI, normal conjunctiva, no scleral icterus HENT: Normocephalic, atraumatic, hearing intact to conversation at normal volume, moist oral mucosa Neck: Supple, non-tender, no JVD, no lymphadenopathy Lungs: Non-labored respirations, symmetric chest rise, Expiratory Wheezing on ausculatation. Heart: Peripheral pulses intact bilaterally, Regular Rate and Rhythm Abdomen: Soft, non-tender, non-distended Musculoskeletal: Edema on bilateral forearms. +1 pitting edema on bilateral lower extremties. In bed Skin: Skin is warm, dry. Contusions on bilateral forearms. Fistula ++ Psychiatric: goes back to lseep quickly Neuro: alert, awake, goes back to sleep. Objective Labs 07/09/25 07:30 07/09/25 07:17 Labs: Laboratory Results - last 24 hr 07/06/25 07/08/25 07/09/25 12:55 19:23 07:17 WBC RBC Hgb 7.9 L D Hct 24.4 L MCV MCH MCHC RDW Std Deviation Plt Count Neut % (Auto) Lymph % (Auto) [place] % (Auto) Eos % (Auto) Baso % (Auto) Neut # (Auto) Lymph # (Auto) [place] # (Auto) Eos # (Auto) Baso # (Auto) Immature Gran # (Auto) Absolute Nucleated RBC Immature Gran % Nucleated RBC % Sodium 141 Potassium 3.5 Chloride 101 Carbon Dioxide 28.7 Anion Gap 11 BUN 20 Creatinine 2.7 H Estim Creat Clear Calc 29.6 L eGFR 26 L BUN/Creatinine Ratio 7 L Glucose 115 H Calculated Osmolality 284 Calcium 9.1 Corrected Calcium 10.8 H Total Bilirubin 0.5 AST 19 ALT 16 Alkaline Phosphatase 283 H D Total Protein 4.6 L Albumin 1.9 L Globulin 2.7 Albumin/Globulin Ratio 0.7 L Blood Type B Positive Antibody Screen NEGATIVE Crossmatch See Detail Blood Bank Wristband ID Yes 07/09/25 07/09/25 07:30 08:29 WBC 6.2 RBC 2.52 L Hgb 8.2 L Hct 25.4 L MCV 101 H MCH 32.5 MCHC 32.3 RDW Std Deviation 74.4 H Plt Count 227 D Neut % (Auto) 61 Lymph % (Auto) 27 [place] % (Auto) 10 Eos % (Auto) 2 Baso % (Auto) 0 Neut # (Auto) 3.7 Lymph # (Auto) 1.7 [place] # (Auto) 0.6 Eos # (Auto) 0.1 Baso # (Auto) 0.0 Immature Gran # (Auto) 0.02 H Absolute Nucleated RBC 0.02 H Immature Gran % 0 Nucleated RBC % 0 Sodium Potassium Chloride Carbon Dioxide Anion Gap BUN Creatinine Estim Creat Clear Calc eGFR BUN/Creatinine Ratio Glucose Calculated Osmolality Calcium Corrected Calcium Total Bilirubin AST ALT Alkaline Phosphatase Total Protein Albumin Globulin Albumin/Globulin Ratio Blood Type Antibody Screen Crossmatch See Detail Blood Bank Wristband ID Quality Measures Quality Measures none Assessment & Plan Assessment Current Active Medications: Generic Name Dose Route Start Last Admin Trade Name Freq PRN Reason Stop Dose Admin Acetaminophen 650 mg 07/06/25 15:55 Acetaminophen 325 Mg Tablet PO 08/05/25 15:54 Q6H PRN PAIN 1-3 OR FEVER > 100.4 Hydrocodone Bitart/Acetaminophen 1 tab 07/06/25 15:55 07/09/25 01:31 Hydrocodone/Apap 5/325 Tablet PO 07/11/25 15:54 1 tab Q4HR PRN Administration PAIN SCALE 4-6 (Moderate Al Hydrox/Mg Hydrox/Simethicone 15 ml 07/07/25 17:15 07/09/25 05:38 Mg Hyd/Al Hyd/Remberto (Maalox Reg) Susp 30 Ml Udc PO 08/06/25 17:14 15 ml QID ERIC Administration Balsam [place] Oil 0 gm 07/08/25 21:00 07/08/25 20:18 Balsam [place] Oil (Venelex) 60 Gm Tube TOP 08/07/25 20:59 1 applicatio BID ERIC Administration Dextrose 50 ml 07/06/25 16:09 07/07/25 18:15 Dextrose 50%-Water Inj 50 Ml Syringe IV 08/05/25 16:08 50 ml Q15MIN PRN Administration BG <50 OR BG <70 & pt unresponsive Folic Acid 1 mg 07/07/25 09:00 07/08/25 09:46 Folic Acid Inj 1 Mg/0.2 Ml IVP 08/06/25 08:59 1 mg QDAY ERIC Administration Glucagon 1 mg 07/06/25 16:09 Glucagon Inj 1 Mg Vial IM Q15MIN PRN BG <70, and no IV access Hydromorphone HCl 0.5 mg 07/06/25 16:00 07/07/25 02:12 Hydromorphone Inj 2 Mg/Ml Vial IVP 07/11/25 15:59 0.5 mg Q2H PRN Administration Pain 7-10 Pantoprazole Sodium 80 mg in 100 mls @ 10 mls/hr 07/06/25 14:46 07/08/25 20:08 Protonix/Ns 80mg Iv Premix IV 07/09/25 12:45 Not Given Q10H ERIC Ceftriaxone Sodium/Dextrose 1 gm in 50 mls @ 100 mls/hr 07/06/25 14:49 07/08/25 09:45 Rocephin/D5w 1gm Iv Premix IV 07/13/25 14:48 100 mls/hr QDAY ERIC Administration Albumin Human 25 gm in 100 mls @ 100 mls/min 07/07/25 08:23 07/07/25 08:29 Albuminar-25 Ivpb IV 07/10/25 08:22 100 mls/min PRN PRN Administration dialysis Insulin Human Lispro 0 unit 07/06/25 17:00 07/08/25 17:02 Insulin Lispro (Admelog) 1 Unit/0.01 Ml Unit SC 08/05/25 16:59 Not Given AC [facility] Protocol Labetalol HCl 100 mg 07/09/25 09:00 07/09/25 08:07 Labetalol 100 Mg Tablet PO 08/08/25 08:59 Not Given QDAY ERIC Ondansetron HCl 4 mg 07/06/25 15:55 Ondansetron Inj 2 Mg/Ml Inj 2 Ml IVP 08/05/25 15:54 Q6H PRN NAUSEA OR VOMITING Protocol Pantoprazole Sodium 40 mg 07/06/25 21:00 Pantoprazole Inj 40 Mg Vial IVP 08/05/25 20:59 On Hold: 07/06/25 21:00 Q12HR ERIC Sevelamer Carbonate 0.8 gm 07/07/25 12:00 07/08/25 20:18 Sevelamer Carbonate 0.8 Gm Packet (Non-Formulary) PO 08/06/25 11:59 0.8 gm TIDWM ERIC Administration Sucralfate 1 gm 07/07/25 17:15 07/09/25 05:38 Sucralfate Susp 1 Gm/10 Ml Udc PO 08/06/25 17:14 1 gm QID ERIC Administration Plan Mr. Gonzalez is a 65 y/o M with PMHx significant for ESRD (//Sun) with Dr. Chadwick at [facility], diabetes, CRISTIANO, BPH, gastric bypass,and recent history of surgical hip repair, presented to the ED on 07/06/2025 from [facility] with coffee-ground emesis and black tarry stools. Patient was consulted for management of ESRD on hemodialysis. #ESRD on hemodialysis (//Sun) -Follows with healthcare consultant Dr. Chadwick at [facility]. -Did not attend Last week sunday's hemodialysis session. -On admission: Cr:4.0, eGFR:16, Hgb: 8.8 -CXR (07/06/2025): Bilateral perihilar basilar pneumonia - BP: 95/56, Cr: 2.7 eGFR: 26 -Hemodialysis sessions: 07/07, 07/09 Plan: -Monitor renal function -Maintain fluid restriction, avoid nephrotoxic agents when possible, renally dose medications -Strict i and o -Hemodialysis Planned today. -Will receive 1 more units of blood transfusion during dialysis #Coffee-ground emesis-- EGD pending today #Melena #Anemia #renal osteodystrophy- add binders, low Ca bath #Hyperkalemia- on HD #Lower back pain #Diabetes #Hip fracture status post repair #Pneumonia- on ABx Management per Primary Care team Assessment and plan discussed with my attending physician Dr. Edwin Rosen (PGY-1)- Internal medicine resident Attending Provider Attestation/Addendum Patient seen and examined with resident physician Dr. Rosen. Note reviewed, agree with findings and recommendations. Patient currently seen on dialysis. Tolerating dialysis without any problems. Hemodialysis for 2 hours, 2K, ultrafiltration 2L, Epogen 6000, no heparin ordered. 1 unit PRBC ordered with dialysis Plan of care discussed with the dialysis nurse. Please see dialysis flowsheet for further details.
[2025-07-09] MEDS: SEVELAMER CARBONATE 0.8 GM PACKET (NON-FORMULARY) PO ×3 (09:37→17:28)
[2025-07-09] MEDS: EPOETIN ALFA-EPBX INJ 10,000 UNIT/ML VIAL (NON-ESRD) 10000 UNIT IV (10:32)
[2025-07-09] MEDS: ONDANSETRON INJ 2 MG/ML INJ 2 ML 4 MG IVP (14:02)
--- NOTE | 2025-07-09 14:25 | ESDS_ITS ---
<Statement entered by Stella Luna MD - 07/16/25 07:12> I reviewed above note and agree with findings and plans. I have also personally examined the patient with medicine team and went over assessment and plan with medical team including advertising internship and resident physician. <Statement entered by Yusuf Wells MD - 07/09/25 18:55> Note reviewed and agree with care plan as documented. Please refer to the note below for further details. Plan discussed with attending physician Dr. Jeremy Wells MD PGY-2 Internal Medicine Planned Discharge Date 07/09/25 DS: Providers Provider Date of admission: 07/06/25 15:52 Primary care physician: Kassidy Molina MD Admitting Provider: Eleuterio See MD Attending Provider on Admission: Eleuterio See MD Consults: 07/06/25 14:53 Consult to Gastroenterology Stat Comment: Consulting Provider: Juan Fitzpatrick 07/06/25 16:06 Referral Wound Care Stat Comment: 07/06/25 16:19 Consult to Nephrology Stat Comment: ESRD on dialysis Sat, Hyperkalemia Consulting Provider: Lion Pineda 07/06/25 16:23 Referral Wound Care Stat Comment: 07/08/25 11:39 Referral Registered Dietitian Routine Comment: DTI to Coccyx Attending Provider on DC: Yusuf Wells MD Discharging Provider: Yusuf Wells MD DS: Diagnosis Problem List Completed Was Problem List Reviewed/Reconciled?: Yes Hospital Course Hospital Course Hospital course: Hospital course: Mr. Gonzalez is a 65 y/o M with PMHx significant for ESRD () with Dr. Chadwick( Dr. pineda covering ) at [facility] , diabetes, CRISTIANO, BPH, gastric bypass,and recent history of surgical b/l hip repair, presented to the ED on 07/06/2025 from [facility] with coffee-ground emesis and black tarry stools. Patient missed sunday's dialysis session last week. In ED, CBC showed a white count of 8.9, hemoglobin was 8.8, hematocrit was 28, platelets 38. PT 12.4, INR 1.1, potassium of 5.7, BUN 55, creatinine 4. AST 45 ALT 23, alk phos 435, guaiac dual was positive for blood. Chest x-ray showed bilateral perihilar pneumonia. The patient had an EGD in February 2025 that showed stenosis at the GE junction, this was treated with dilation. There were several ulcers found during this EGD as well. Protonix drip was started and a dose of Rocephin was given for pneumonia. During the patient's stay his hemoglobin dropped from 8.4 to 6.1, he was given a unit of blood and hemoglobin returned to 7.9. He was given 1 more unit and hemoglobin went to 8.2. He received 3 s essions of dialysis during his hospital stay. Problem List: #Coffee-ground emesis #Melena #Upper GI bleed #Macrocytic anemia #Sinus tachycardia #Hypertension #Hypoalbuminemia #ESRD on dialysis #Acute Hyperkalemia (Resolved) #Hyperphosphatemia #Lower back pain #Diabetes #Hip fracture status postrepair #Community-acquired pneumonia Discharge Instructions: - Continue attending dialysis as scheduled - Continue taking all other home medications as prescribed - Follow-up with PCP within 1-2 weeks of discharge - If you do not have a PCP, you can follow-up at the [facility] - Return to ED if symptoms worsen Patient was seen and discussed with my attending physician Dr. Luna. Tonny Richards DO PGY-1. Time Spent with Patient Time attestation: Total time spent providing and/or coordinating discharge services: More than 50% Time spent: Greater than 30 minutes Exam Vital Signs Temp Pulse Resp BP Pulse Ox O2 Del Method O2 Flow Rate 97.7 F 99 17 123/40 L 95 Nasal Cannula 2 07/09/25 14:10 07/09/25 14:17 07/09/25 14:10 07/09/25 14:17 07/09/25 14:10 07/09/25 12:00 07/09/25 14:10 Narrative Exam General: Chronically ill-appearing pale man. Awake and in no acute distress. Oriented to place. Melena in diaper. Neurologic: Alert and oriented x3, no gross neurological deficit, and patient able to move all 4 extremities. HEENT: Dark discoloration of the teeth. Normocephalic, atraumatic. Pupils reactive to light. Pale lower eyelids. Heart: Tachycardic, regular rhythm, normal S1 and S2, no murmurs. Lungs: Clear to auscultation bilaterally with no wheezing or crackles. Abdomen: Soft, nondistended, nontender, positive bowel sounds. No guarding or rebound tenderness. Extremities: Diffuse anasarca in the upper extremities bilaterally with weeping. No lower extremity edema. Left knee previous surgical scar. Skin: Warm. Dry. No rash or ecchymoses. Discharge Plan Plan Patient Disposition: Xfer Skilled Nsg Fac (SNF) Care Plan Goals: - Follow up with primary care provider within 2 weeks of discharge - Follow up with GI within 2 weeks of discharge - Avoid NSAIDS and blood thinners - Return to emergency room if symptoms return or worsen - Continue taking medications as instructed Prescriptions/Referrals Prescriptions/Med Rec: New sucralfate 100 mg/mL Suspension 1 g PO QID 30 Days Qty: 1200 0RF pantoprazole 40 mg tablet,delayed release (DR/EC) 40 mg PO QDAY Qty: 30 0RF Continued nortriptyline 25 mg capsule 25 mg PO HS cholecalciferol (vitamin D3) [Vitamin D3] 2,000 UNIT capsule 2,000 unit PO QDAY Qty: 0 vitamin B complex Tablet 1 tab PO QDAY sucralfate 100 mg/mL suspension 10 ml PO Q6H Rx Instructions: FOR PEPTIC ULCER hydrocodone-acetaminophen 5-325 mg tablet 1 tab PO Q6H MDD 3 PRN (Reason: pain) Qty: 14 0RF sevelamer carbonate [Renvela] 0.8 gram powder in packet 0.8 g PO TID Rx Instructions: must administer with a meal/food bisacodyl [Dulcolax (bisacodyl)] 10 mg suppository 10 mg VT QDAY PRN (Reason: constipation) Rx Instructions: To be administered the following shift if MOM ineffective. Enema 19-7 gram/118 mL enema 118 ml VT QDAY PRN (Reason: constipation) Rx Instructions: To be administered the following shift if Dulcolax suppository is ineffective, notify MD if no result. hydroxyzine HCl 10 mg tablet 10 mg PO QPM PRN (Reason: itching) Patient Comments: TAKE 1 TABLET BY MOUTH NIGHTLY insulin aspart U-100 [Novolog FlexPen U-100 Insulin] 100 unit/mL (3 mL) insulin pen 5 unit SUBCUT AC Patient Comments: INJECT 5 UNIT SUBCUTANEOUSLY 3 TIMES A DAY BEFORE MEALS HOLD IF BS<150 alum-mag hydroxide-simeth [Maalox Advanced] 200-200-20 mg/5 mL suspension 10 ml PO QID Qty: 3000 0RF Rx Instructions: administer between meals and at bedtime Discontinued aspirin 81 mg tablet,delayed release (DR/EC) 81 mg PO BID Qty: 60 0RF midodrine 10 mg Tablet 10 mg PO TID Rx Instructions: HOLD IF SBP>120 Referrals: Kassidy Molina MD [Primary Care Provider] Patient/Caregiver Discharge Instructions Discharge Activity: activity as tolerated Education Materials: Bleeding Gastrointestinal, Anemia, Preventing Pneumonia, What Are Snoring and Sleep Apnea?, Kidney Problems, Hemodialysis, Kidney Failure Self Care, Anemia and Kidney Disease, Managing Your Glucose Level for ..., Anatomy of the Digestive System, Sleep Apnea Partner Notes, ED Chronic Kidney Disease (CKD), ED Sleep Apnea, Obstructive, ED Upper GI Bleeding (Stable) Print Language: [place] Stand Alone Forms: [facility] Award Info., Patient Portal Info Letter Discharge Order Discharge Orders: Discharge (Routine); Ordered 07/09/25 Ordered By: Yusuf Wells Quality Discharge Quality Measures none
--- NOTE | 2025-07-09 15:25 | PD.IMPROG ---
Documentation for date of: 07/09/25 Subjective Subjective Interval history: Hemoglobin hematocrit 8.2 and 25.4 Upper endoscopy showed anastomotic site ulceration and GE junction ulcers Exam Vital Signs Temp Pulse Resp BP Pulse Ox O2 Del Method O2 Flow Rate 96.9 F 94 20 139/44 H 99 Nasal Cannula 2 07/09/25 15:06 07/09/25 15:06 07/09/25 15:06 07/09/25 15:06 07/09/25 15:06 07/09/25 12:00 07/09/25 15:06 Objective Labs 07/09/25 07:30 07/09/25 07:17 Labs: Laboratory Results - last 24 hr 07/06/25 07/08/25 07/09/25 12:55 19:23 07:17 WBC RBC Hgb 7.9 L D Hct 24.4 L MCV MCH MCHC RDW Std Deviation Plt Count Neut % (Auto) Lymph % (Auto) [place] % (Auto) Eos % (Auto) Baso % (Auto) Neut # (Auto) Lymph # (Auto) [place] # (Auto) Eos # (Auto) Baso # (Auto) Immature Gran # (Auto) Absolute Nucleated RBC Immature Gran % Nucleated RBC % Sodium 141 Potassium 3.5 Chloride 101 Carbon Dioxide 28.7 Anion Gap 11 BUN 20 Creatinine 2.7 H Estim Creat Clear Calc 29.6 L eGFR 26 L BUN/Creatinine Ratio 7 L Glucose 115 H Calculated Osmolality 284 Calcium 9.1 Corrected Calcium 10.8 H Total Bilirubin 0.5 AST 19 ALT 16 Alkaline Phosphatase 283 H D Total Protein 4.6 L Albumin 1.9 L Globulin 2.7 Albumin/Globulin Ratio 0.7 L Blood Type B Positive Antibody Screen NEGATIVE Crossmatch See Detail Blood Bank Wristband ID Yes 07/09/25 07/09/25 07:30 08:29 WBC 6.2 RBC 2.52 L Hgb 8.2 L Hct 25.4 L MCV 101 H MCH 32.5 MCHC 32.3 RDW Std Deviation 74.4 H Plt Count 227 D Neut % (Auto) 61 Lymph % (Auto) 27 [place] % (Auto) 10 Eos % (Auto) 2 Baso % (Auto) 0 Neut # (Auto) 3.7 Lymph # (Auto) 1.7 [place] # (Auto) 0.6 Eos # (Auto) 0.1 Baso # (Auto) 0.0 Immature Gran # (Auto) 0.02 H Absolute Nucleated RBC 0.02 H Immature Gran % 0 Nucleated RBC % 0 Sodium Potassium Chloride Carbon Dioxide Anion Gap BUN Creatinine Estim Creat Clear Calc eGFR BUN/Creatinine Ratio Glucose Calculated Osmolality Calcium Corrected Calcium Total Bilirubin AST ALT Alkaline Phosphatase Total Protein Albumin Globulin Albumin/Globulin Ratio Blood Type B Positive Antibody Screen NEGATIVE Crossmatch See Detail Blood Bank Wristband ID Yes Impressions Impression: Anastomotic site ulcer at the site of gastroenterostomy GE junction ulcers Continue current management Assessment & Plan A&P Narrative # Melena # Hematemesis # Acute posthemorrhagic anemia Plan Continue IV Protonix Serial CBC Blood transfusion if the hemoglobin drops below 7 g Clear liquid diet till 9 AM tomorrow then n.p.o. Consent obtained in the presence of the attending RN for fiberoptic esophagogastroduodenoscopy with possible biopsy possible therapeutic intervention under intravenous moderate sedation scheduled for tomorrow Other medical problems include BPH End-stage renal disease on hemodialysis TTS Diabetes mellitus type 2 Obstructive sleep apnea Status post hip fracture ORIF Thank you very much for the opportunity to participate in care of this patient Time Spent With Patient Time: Total time spent is greater than 50% in coordination of care (as documented) at patient's floor/unit and/or counseling patient:
--- NOTE | 2025-07-09 16:01 | PD.IMPROG ---
Documentation for date of: 07/09/25 Subjective Subjective Interval history: Hemoglobin 8.2 Exam Vital Signs Temp Pulse Resp BP Pulse Ox O2 Del Method O2 Flow Rate 96.9 F 94 20 139/44 H 99 Nasal Cannula 2 07/09/25 15:06 07/09/25 15:06 07/09/25 15:06 07/09/25 15:06 07/09/25 15:06 07/09/25 12:00 07/09/25 15:06 Objective Labs 07/09/25 07:30 07/09/25 07:17 Labs: Laboratory Results - last 24 hr 07/06/25 07/08/25 07/09/25 12:55 19:23 07:17 WBC RBC Hgb 7.9 L D Hct 24.4 L MCV MCH MCHC RDW Std Deviation Plt Count Neut % (Auto) Lymph % (Auto) [place] % (Auto) Eos % (Auto) Baso % (Auto) Neut # (Auto) Lymph # (Auto) [place] # (Auto) Eos # (Auto) Baso # (Auto) Immature Gran # (Auto) Absolute Nucleated RBC Immature Gran % Nucleated RBC % Sodium 141 Potassium 3.5 Chloride 101 Carbon Dioxide 28.7 Anion Gap 11 BUN 20 Creatinine 2.7 H Estim Creat Clear Calc 29.6 L eGFR 26 L BUN/Creatinine Ratio 7 L Glucose 115 H Calculated Osmolality 284 Calcium 9.1 Corrected Calcium 10.8 H Total Bilirubin 0.5 AST 19 ALT 16 Alkaline Phosphatase 283 H D Total Protein 4.6 L Albumin 1.9 L Globulin 2.7 Albumin/Globulin Ratio 0.7 L Blood Type B Positive Antibody Screen NEGATIVE Crossmatch See Detail Blood Bank Wristband ID Yes 07/09/25 07/09/25 07:30 08:29 WBC 6.2 RBC 2.52 L Hgb 8.2 L Hct 25.4 L MCV 101 H MCH 32.5 MCHC 32.3 RDW Std Deviation 74.4 H Plt Count 227 D Neut % (Auto) 61 Lymph % (Auto) 27 [place] % (Auto) 10 Eos % (Auto) 2 Baso % (Auto) 0 Neut # (Auto) 3.7 Lymph # (Auto) 1.7 [place] # (Auto) 0.6 Eos # (Auto) 0.1 Baso # (Auto) 0.0 Immature Gran # (Auto) 0.02 H Absolute Nucleated RBC 0.02 H Immature Gran % 0 Nucleated RBC % 0 Sodium Potassium Chloride Carbon Dioxide Anion Gap BUN Creatinine Estim Creat Clear Calc eGFR BUN/Creatinine Ratio Glucose Calculated Osmolality Calcium Corrected Calcium Total Bilirubin AST ALT Alkaline Phosphatase Total Protein Albumin Globulin Albumin/Globulin Ratio Blood Type B Positive Antibody Screen NEGATIVE Crossmatch See Detail Blood Bank Wristband ID Yes Impressions Impression: Distal esophageal ulcers Anastomotic site ulcer at the site of gastroenterostomy Continue current management Assessment & Plan A&P Narrative # Melena # Hematemesis # Acute posthemorrhagic anemia Plan Continue IV Protonix Serial CBC Blood transfusion if the hemoglobin drops below 7 g Clear liquid diet till 9 AM tomorrow then n.p.o. Consent obtained in the presence of the attending RN for fiberoptic esophagogastroduodenoscopy with possible biopsy possible therapeutic intervention under intravenous moderate sedation scheduled for tomorrow Other medical problems include BPH End-stage renal disease on hemodialysis TTS Diabetes mellitus type 2 Obstructive sleep apnea Status post hip fracture ORIF Thank you very much for the opportunity to participate in care of this patient Time Spent With Patient Time: Total time spent is greater than 50% in coordination of care (as documented) at patient's floor/unit and/or counseling patient:
--- NOTE | 2025-07-09 16:51 | PC.NURSE ---
gave report of patient to FRANCIS LOFTON of [facility].
--- NOTE | 2025-07-09 19:42 | PC.NURSE ---
PT DISCHARGED TO [facility], PT AWAKE, ALERT TO SELF, DENIES PAIN. REPORT GIVEN TO EMT STAFF, PT TRANSPORTED ON STRETCHER.
== END 2025-07-09 19:42 | disposition skilled nursing facility (03) | DRG 380 ==
LOC: SERX 15:17 → SERHOLD 16:25 → S2NX 18:11
PROVIDERS: Nurse Practitioner Family; Specialist; Student in an Organized Health Care Education/Training Program; Admitting Provider Student in an Organized Health Care Education/Training Program; Emergency Provider Emergency Medicine; PCP Hospitalist; Visit Provider Internal Medicine
PROC: 0DB68ZX Excision of Stomach, Via Natural or Artificial Opening Endoscopic, Diagnostic (ICD-10-PCS; CPT 43239; principal; 2025-07-07 16:30)
DX: K22.11 Ulcer of esophagus with bleeding (principal); J18.9 Pneumonia, unspecified organism; N18.6 End stage renal disease; D62 Acute posthemorrhagic anemia; I12.0 Hypertensive chronic kidney disease with stage 5 chronic kidney disease or end stage renal disease; E11.22 Type 2 diabetes mellitus with diabetic chronic kidney disease; Z99.2 Dependence on renal dialysis; G47.33 Obstructive sleep apnea (adult) (pediatric); N40.0 Benign prostatic hyperplasia without lower urinary tract symptoms; Z79.82 Long term (current) use of aspirin; K25.4 Chronic or unspecified gastric ulcer with hemorrhage; M53.3 Sacrococcygeal disorders, not elsewhere classified; E88.09 Other disorders of plasma-protein metabolism, not elsewhere classified; E83.39 Other disorders of phosphorus metabolism; N25.0 Renal osteodystrophy; E87.5 Hyperkalemia; M54.50 Low back pain, unspecified; D53.9 Nutritional anemia, unspecified; Z66 Do not resuscitate; Z98.84 Bariatric surgery status; Z87.11 Personal history of peptic ulcer disease; Z79.899 Other long term (current) drug therapy
CPT/HCPCS: 36415; 71045; 80053; 80061; 80069; 82270; 82728; 82947; 83540; 83550; 83690; 83735; 84100; 84443; 85014; 85018; 85025; 85610; 86850; 86900; 86901; 86923; 87081; 87811; 93005; 96361; 96365; 96366; 96375; 99284; A4649; J0696; J1171; J1643; J2250; J2405; J2470; J3010; J3420; J3490; J7030; P9016; P9047; Q5105; Q5106; A9270

== ENCOUNTER 2025-07-20 12:17 | Emergency (ER) | payer MEDICARE, MEDICAID, SELFPAY ==
--- NOTE | 2025-07-20 12:53 | EKG_ITS ---
[facility] Test Date: 2025-07-20 Pat Name: TA STONE Department: Room: - Gender: Male Extension Course Coordinator: : 1960 Requested By: Jodi Flores Order Number: [id number] Reading MD: Jodi Flores Measurements Intervals [place] Rate: 116 P: 18 MI: 100 QRS: 12 QRSD: 66 T: 127 QT: 341 QTc: 475 Interpretive Statements SINUS TACHYCARDIA WITH SHORT MI INTERVAL LOW QRS VOLTAGE [QRS DEFLECTION < 0.5/1.0 mV IN LIMB/CHEST LEADS] ABNORMAL QRS-T ANGLE [QRS-T AXIS DIFFERENCE > 60] Compared to ECG 07/06/2025 12:39:35 Short MI interval now present /store/S0/[id number]
--- NOTE | 2025-07-20 13:00 | EDNOTE_ITS ---
<Statement entered by Mallory Lorenzana MD - 07/20/25 17:42> I, Mallory Lorenzana MD, have reviewed the history, exam, and assessment of the patient. I have evaluated the patient independently and agree with the plan of care documented by [ ]. All diagnostic studies were reviewed and discussed. I confirm the diagnosis as documented by the Resident. I was present during the Medical Decision Making for this patient. The patient's plan of care was created between myself and the Resident and consistent with our discussion of the patient's case. ED Weakness RME/HPI General Chief complaint: Weakness Stated complaint: WEAKNESS Time Seen by Provider: 07/20/25 12:51 Arrival date/time: 07/20/25 12:17 Mode of arrival: EMS RME / HPI RME / HPI Narrative: Mr. Gonzalez is a 65-year-old male with past medical history of end-stage renal disease on HD TTS follows Dr. Chadwick, diabetes mellitus, CRISTIANO, BPH, gastric bypass surgery and esophageal ulcers who presented to [facility] ED on 07/20/2025 with a chief complaint of weakness from dialysis center. Patient is A&O x 1 unable to provide history as altered mental status, history obtained from EMS. Per EMS patient got Ativan prior to his transfer to dialysis center earlier this morning and was found to be altered at the dialysis center and was sent to the emergency department for further evaluation. Patient tachycardic on evaluation requiring supplemental oxygen to maintain spO2 greater than 92. Related Data Home Medications ?Medication ?Instructions ?Recorded ?Confirmed cholecalciferol (vitamin D3) 50 2,000 unit PO QDAY #0 caps 12/19/15 07/06/25 mcg (2,000 unit) capsule (Vitamin D3) vitamin B complex 1 tab PO QDAY 04/01/1907/06 nortriptyline 25 mg capsule 25 mg PO HS 11/12/2007/06 hydroxyzine HCl 10 mg tablet 10 mg PO QPM PRN itching 03/07/24 07/06/25 insulin aspart U-100 100 unit/mL 5 unit subcut AC 01/2607/06/25 (3 mL) subcutaneous pen (Novolog FlexPen U-100 Insulin aspart) sucralfate 100 mg/mL oral 10 ml PO Q6H 06/15/25 suspension bisacodyl 10 mg rectal suppository 10 mg CA QDAY PRN c onstipation 07/06/25 07/06/25 (Dulcolax (bisacodyl)) sevelamer carbonate 0.8 gram oral 0.8 g PO TID 5 07/06/25 powder packet (Renvela) sodium phosphates 19 gram-7 118 ml CA QDAY PRN constip ation 07/06/25 07/06/25 gram/118 mL enema (Enema) Previous Rx's ?Medication ?Instructions ?Recorded aluminum-mag hydroxide-simethicone 10 ml PO QID #3,000 mL 02/15/25 200 mg-200 mg-20 mg/5 mL oral susp (Maalox Advanced) hydrocodone 5 mg-acetaminophen 325 1 tab PO Q6H PRN pa in #14 tabs 06/19/25 mg tablet pantoprazole 40 mg tablet,delayed 40 mg PO QDAY #30 ta bs 07/09/25 release sucralfate 100 mg/mL oral 1 g (10 mL) PO QID 30 days # 1,200 07/09/25 suspension mL levofloxacin 750 mg tablet 750 mg PO QDAY Pneumonia 7 days #7 07/20/25 tabs Allergies Allergy/AdvReac Type Severity Reaction Status Date / Time house dust Allergy Verified 06/14/25 18:06 Review of Systems Review of Systems ROS Unobtainable: unobtainable due to mental status Past Medical History Past Medical History NEUROLOGIC: Positive Transient Ischemic Attacks (TIA); Negative Neurological Disorders or Seizures CARDIAC: Positive Hypercholesterolemia and Hypertension; Negative Cardiac Disorders or Congestive Heart Failure RESPIRATORY: Positive Asthma, Pneumonia and Sleep Apnea; Negative Chronic Obstructive Pulmonary Disease (COPD) GASTROINTESTINAL: Positive Gastrointestinal Disorders, Ulcer and Gastroesophageal Reflux Disease GENITOURINARY: Positive Genitourinary Disorders, Renal Disease, Kidney Stones and Dialysis MUSCULOSKELETAL: Positive Musculoskeletal Disorders and Arthritis ENT: Negative Cataracts ENDOCRINE: Positive Endocrine Disorders, Diabetes Mellitus Type 2 and Hypoglycemia; Negative Diabetes Mellitus Type 1 HEMATOLOGIC: Positive Anemia; Negative Blood Disorders or Sickle Cell Disease OTHER HISTORY: Positive Falls, Chicken Pox, Measles and Mumps; Negative Autoimmune Disease, Blood Transfusions, Anesthesia Reactions or Cancer Family History FAMILY HISTORY: Positive Family Respiratory Disorders; Negative Family Cancer Surgical History SURGICAL: Positive Tonsillectomy, Gastric Bypass Surgery, Nephrectomy and Hip Sx (BILAT) OTHER SURGICAL HX: As in the history of present illness Social History SMOKING STATUS: Unknown if ever smoked SECOND HAND EXPOSURE: No ED Exam Narrative Physical exam: Physical Exam General: Awake and lethargic. Conversational, tired and sick appearing. HEENT: Normocephalic, atraumatic, mucous membranes moist. Heart: Sinus tachycardia, no murmurs. Lungs: Bilateral crackles Abdomen: Soft, nondistended, nontender, positive bowel sounds. ?No guarding or rebound tenderness. Neurologic: Alert and oriented x1, no gross neurological deficit, and patient able to move all 4 extremities. Extremities: 2+ bilateral lower extremity edema, 1+ edema upper extremity bilaterally Skin: Bruising noted right upper extremity Course Course Course Narrative: Patient presented for confusion, tachycardic, no fluids given due to history of ESRD. EKG shows sinus tachycardia, QTc 475 Workup ordered Chest x-ray shows significant left base pneumonia CBC: WBC 14.7, RBC 3.50, hemoglobin 10.9, hematocrit 34.8, platelet count 155, neutrophilia noted neutrophil 12.8 Coags: PT 13.0, INR 1.2, APTT 36.3 VBG pH 7.6, pCO2 26, pO2 100 CMP: Sodium 134, potassium 4.3, chloride 99, bicarb 24.6, anion gap 10, BUN 26, creatinine 3.2, GFR 21, glucose 125, lactate 1.1, calcium 9.2, corrected calcium 11, phosphorus 4.6, magnesium 2.6, AST ALT and T. bili unremarkable, alkaline phosphatase 252, ammonia 12, troponin negative, BNP 267, total protein 5.0, albumin 1.8, Pro-Guero 83.11 Urinalysis showed pH 8, protein 1+, RBC 1, WBC 1, no bacteria Urine toxicology positive for opiates Sepsis alert called for the patient because of tachycardia and elevated white count Patient not given fluid as patient is ESRD and has significant edema Patient will be given IV antibiotics-ceftriaxone and doxycycline Case discussed with hospitalist team for admission 1622: Received a callback from hospitalist team that patient is hospice and comfort measures, hospitalist team to follow-up with patient's family and decide on admission vs discharge. Hospitalist team discussed the case with patient's family, patient was started on comfort measures about a week ago and the patient does not want to proceed with any treatment. Please see hospitalist note for details. Patient is stable for discharge, we will discharge on oral levofloxacin, discharge instructions as below Patient is on comfort focused treatment and on hospice, does not want any treatment per family. Quality Measures Current suspected stage: sepsis (Fluid Bolus not given, h/o ESRD) Possible source: pulmonary Blood cultures ordered: yes Antibiotic ordered: Yes Pertinent labs: 07/20/25 14:15 Lactic Acid 1.1 mMol/L (0.4-2.0) Procalcitonin 83.11 H ng/ml (0.0-0.49) sepsis and none Orders Category Date Time Status Bedside COVID-19 Antigen Test NOW Care 07/20/25 16:32 Active COVID-19 Screening Questionnaire NOW Care 07/20/25 15:21 Active Director Of Clinical Services Q4H START 00 Care 07/20/25 12:55 Active Continuous Pulse Oximetry NOW Care 07/20/25 12:55 Completed Decision to Admit X1 Care 07/20/25 15:21 Completed EKG (ED ONLY) *Do not use* NOW Care 07/20/25 12:53 Completed Fingerstick [Bedside Blood Glucose] NOW Care 07/20/25 12:57 Active Insert IV NOW Care 07/20/25 14:55 Active Strict Intake and Output Routine Care 07/20/25 14:55 Ordered Consult to Nephrology Routine Cons 07/20/25 15:55 Ordered CXRP [XR chest 1V portable] Stat Exams 07/20/25 13:43 Completed EKG (ED Only) Stat Exams 07/20/25 12:53 Draft Ammonia Stat Lab 07/20/25 14:15 Completed BNP [B-Type Natriuretic Peptide] Stat Lab 07/20/25 14:15 Completed Blood Culture (Lab) Stat Lab 07/20/25 15:12 Received CBC Stat Lab 07/20/25 14:15 Completed Comprehensive Metabolic Panel Stat Lab 07/20/25 14:15 Completed Drug Screen,Urine Stat Lab 07/20/25 13:35 Completed INR [Prothrombin Time with INR] Stat Lab 07/20/25 14:15 Completed Lactate (Lactic Acid) Stat Lab 07/20/25 14:15 Completed Magnesium Stat Lab 07/20/25 14:15 Completed PTT [Partial Thromboplastin Time] Stat Lab 07/20/25 14:15 Completed Phosphorous Stat Lab 07/20/25 14:15 Completed Procalcitonin Stat Lab 07/20/25 14:15 Completed Troponin I Stat Lab 07/20/25 14:15 Completed Urinalysis, C/S if Indicated Stat Lab 07/20/25 13:35 Completed VBG [Venous Blood Gas] Stat Lab 07/20/25 14:15 Completed Acetaminophen Tab [Tylenol ES Tab] Med 07/20/25 16:28 Discontinued 500 mg PO X1 ONE Doxycycline Inj [Vibramycin Inj] 100 mg Med 07/20/25 14:58 Discontinued Sodium Chloride 0.9% (Pop) [NS 0.9% mini bag] 100 ml IV X1 Sodium Chloride 0.9% 250 ml [Ns] 250 ml Med 07/20/25 14:58 Discontinued IV 999 mls/hr cefTRIAXone [Rocephin] 2 gm Med 07/20/25 14:58 Active SODIUM CHLORIDE 0.9% (Popper) [Ns 0.9% (P)] 50 ml IV QDAY Oxygen Delivery PRN RT 07/20/25 14:55 Active Vital Signs Vital signs: Vital Signs Temperature 97.4 F 07/20/25 13:05 Pulse Rate 116 H 07/20/25 13:05 Respiratory Rate 30 H 07/20/25 13:05 Blood Pressure 121/75 07/20/25 13:05 Pulse Oximetry (%) 86 L 07/20/25 13:05 Oxygen Delivery Method Room Air 07/20/25 13:05 Weakness MDM Narrative MDM Narrative:: # Acute hypoxic respiratory failure # Community-acquired pneumonia # Sepsis 65 year old male presented for confusion, tachycardic. EKG shows sinus tachycardia, QTc 475 Chest x-ray shows significant left base pneumonia WBC 14.7, lactate 1.1, Pro-Guero 83.11, BUN 26, creatinine 3.2, GFR 21 Sepsis alert called for the patient because of tachycardia and elevated white count Patient not given fluid as patient is ESRD and has significant edema Patient will be given IV antibiotics-ceftriaxone and doxycycline Patient will be given IV antibiotics-ceftriaxone and doxycycline Case discussed with hospitalist team for admission 1622: Received a callback from hospitalist team that patient is hospice and comfort measures, hospitalist team to follow-up with patient's family and decide on admission vs discharge. 17:10 Hospitalist team discussed the case with patient's family, patient was started on comfort measures about a week ago and the patient does not want to proceed with any treatment. Please see hospitalist note for details. Patient is stable for discharge, we will discharge on oral levofloxacin, discharge instructions as below Case discussed with Attending Physician Dr. Harriett Flores MD Internal Medicine PGY-2 Disclaimer: This note was dictated by speech recognition. Minor errors in housekeeping coordinator may be present due to voice recognition software. Patient data External records reviewed:: [facility] previous records and EMS form Clinical information provided by:: EMS Social determinants that could affect healthcare access:: none Patient has the following chronic illnesses:: As Above How is presenting disease/condition affected by chronic disease/condition?: exacerbated by Evaluation data The following diagnostics were reviewed and interpreted by me:: lab results, radiology exam(s) and EKG tracing(s) Lab and/or radiology exams considered but not ordered:: None Interpretation Summary: EKG shows sinus tachycardia, QTc 475 Chest x-ray shows significant left base pneumonia CBC: WBC 14.7, RBC 3.50, hemoglobin 10.9, hematocrit 34.8, platelet count 155, neutrophilia noted neutrophil 12.8 Coags: PT 13.0, INR 1.2, APTT 36.3 VBG pH 7.6, pCO2 26, pO2 100 CMP: Sodium 134, potassium 4.3, chloride 99, bicarb 24.6, anion gap 10, BUN 26, creatinine 3.2, GFR 21, glucose 125, lactate 1.1, calcium 9.2, corrected calcium 11, phosphorus 4.6, magnesium 2.6, AST ALT and T. bili unremarkable, alkaline phosphatase 252, ammonia 12, troponin negative, BNP 267, total protein 5.0, albumin 1.8, Pro-Guero 83.11 Urinalysis showed pH 8, protein 1+, RBC 1, WBC 1, no bacteria Urine toxicology positive for opiates Medications / Prescriptions Medications or Prescriptions considered but not ordered:: None Medication administrations:: Medication Administration History Ceftriaxone Sodium 2 gm/ (Sodium Chloride) 50 mls @ 100 mls/hr IV QDAY ERIC Stop: 07/27/25 14:57 Last Admin: 07/20/25 16:18 Dose: 100 mls/hr Documented By: LP Discontinued Medications Acetaminophen (Acetaminophen 500 Mg Tablet) 500 mg PO X1 ONE Stop: 07/20/25 16:29 Last Admin: 07/20/25 16:59 Dose: 500 mg Documented By: LP Sodium Chloride (Ns) 250 mls @ 999 mls/hr IV .Q16M ONE Stop: 07/20/25 15:13 Doxycycline Hyclate 100 mg/ (Sodium Chloride) 100 mls @ 100 mls/hr IV X1 ONE Stop: 07/20/25 15:57 Last Admin: 07/20/25 16:18 Dose: 100 mls/hr Documented By: LP As Above Consultations Consultation(s) initiated? (list below): No Diagnosis Weakness Differential Diagnosis: sepsis and other Most likely diagnosis given after review of the tests above:: AHRF, CAP, Sepsis Admission Indicated Admission indicated?: indicated Explain why admission is indicated or not indicated:: Patient is on comfort focused treatment and on hospice, does not want any treatment per family. Hence patient will be discharged, see above for details. Admission Request Was there a request for admission?: Yes Admission Attestation Admission request attestation: Discussed case with Dr Conte from Hospitalist service regarding admission. Discussed patients ED course, exam findings, labs, and radiology results. The Hospitalist discussed the case with the patient's family, patient want comfort focused treatment and patient will be discharged back to facility. Disposition Plan Disposition Plan: Discharge Discharge Attestation Discharge Attestation: The patient and all family members were given an opportunity to ask questions and understood the discharge instructions. Discharge instructions specifically effects, indications for sooner follow up or return to the emergency department, and the expected course of current diagnosis. Patient condition: Stable Discharge Plan Plan Patient Disposition: Xfer Skilled Nsg Fac (SNF) Patient condition on transfer: Benefits outweigh risks Health Concerns: ? You were seen in the emergency department for weakness and confusion, our hospitalist team discussed with your family and as you are on comfort measures we will be discharging you on oral antibiotics to complete treatment for pneumonia. ? Take Levaquin 750 mg daily for 7 days to complete treatment for pneumonia ? Continue comfort measures at the discretion of family, follow-up with hospice physician for further management ? Return to the emergency department as needed ? We recommend following up with hospice physician in a week Prescriptions/Referrals Prescriptions/Med Rec: New levofloxacin 750 mg tablet 750 mg PO QDAY 7 Days Qty: 7 0RF No Action nortriptyline 25 mg capsule 25 mg PO HS cholecalciferol (vitamin D3) [Vitamin D3] 2,000 UNIT capsule 2,000 unit PO QDAY Qty: 0 vitamin B complex Tablet 1 tab PO QDAY sucralfate 100 mg/mL suspension 10 ml PO Q6H Rx Instructions: FOR PEPTIC ULCER hydrocodone-acetaminophen 5-325 mg tablet 1 tab PO Q6H MDD 3 PRN (Reason: pain) Qty: 14 0RF sevelamer carbonate [Renvela] 0.8 gram powder in packet 0.8 g PO TID Rx Instructions: must administer with a meal/food bisacodyl [Dulcolax (bisacodyl)] 10 mg suppository 10 mg CA QDAY PRN (Reason: constipation) Rx Instructions: To be administered the following shift if MOM ineffective. Enema 19-7 gram/118 mL enema 118 ml CA QDAY PRN (Reason: constipation) Rx Instructions: To be administered the following shift if Dulcolax suppository is ineffective, notify MD if no result. sucralfate 100 mg/mL Suspension 1 g PO QID 30 Days Qty: 1200 0RF pantoprazole 40 mg tablet,delayed release (DR/EC) 40 mg PO QDAY Qty: 30 0RF hydroxyzine HCl 10 mg tablet 10 mg PO QPM PRN (Reason: itching) Patient Comments: TAKE 1 TABLET BY MOUTH NIGHTLY insulin aspart U-100 [Novolog FlexPen U-100 Insulin] 100 unit/mL (3 mL) insulin pen 5 unit SUBCUT AC Patient Comments: INJECT 5 UNIT SUBCUTANEOUSLY 3 TIMES A DAY BEFORE MEALS HOLD IF BS<150 alum-mag hydroxide-simeth [Maalox Advanced] 200-200-20 mg/5 mL suspension 10 ml PO QID Qty: 3000 0RF Rx Instructions: administer between meals and at bedtime Referrals: Farrukh Polanco [Primary Care Provider] - In 1 week Problem List Clinical Impression: Pneumonia, Sepsis, Acute hypoxemic respiratory failure Patient/Caregiver Discharge Instructions Discharge Activity: other Education Materials: Hospice The Importance of ..., Hospice: [facility] Print Language: Turkmen Stand Alone Forms: [facility] Award Info., Patient Portal Info Letter
[2025-07-20 13:05] VITALS: BP 121/75; PULSE 116; RESP 30; TEMP 36.3; O2SAT 86
[2025-07-20 13:43] VITALS: PULSE 112
--- NOTE | 2025-07-20 13:43 | XR_ITS ---
Examination: AP chest single view Technique one AP portable upright chest single view Date and time: July 20, 2025 1355 hours, comparison 07/06/2025 INDICATIONS: Hypoxia shortness of breath today. FINDINGS: Significant left lung pneumonia. Normal heart size Atelectasis versus pneumonia in the right midlung Right internal jugular dialysis catheter tip satisfactory position IMPRESSION: Significant left lung pneumonia
[2025-07-20 13:44] VITALS: PULSE 114; O2SAT 97
[2025-07-20 13:46] LABS: Collection Type, Urine Clean Catch
[2025-07-20 14:01] LABS: Bilirubin,Urine Negative (Negative); Blood,Urine Negative (Negative); Clarity,Urine Clear (Clear/Hazy); Color,Urine Yellow (Lt Yel-Yel); Culture Indicated,Urine Not Indicated; Glucose, Urine Negative (Negative); Ketones,Urine Negative (Negative); Leukocyte Esterase,Urine Negative (Negative); Nitrite,Urine Negative (Negative); PH,Urine 8.0 (5.0-7.0); Protein,Urine 1+ (Neg - Trace); RBC,Urine 1 /hpf (0-3); Specific Gravity,Urine 1.016 (1.001-1.035); Squamous Epithelial Cell,Urine < 1 /hpf (0-5); Urobilinogen,Urine Negative mg/dL (0.0-1.0); WBC,Urine 1 /hpf (0-5)
[2025-07-20 14:15] LABS: Amphetamine/Methamp Scrn,U Negative (Negative); Barbiturate Screen,Urine Negative (Negative); Benzodiazepines Screen,Urine Negative (Negative); Benzoylecgonine Screen, Ur Negative (Negative); Fentanyl Screen,Urine Negative (Negative); Opiate Screen,Urine Positive (Negative); THC Screen,Urine Negative (Negative)
[2025-07-20 14:22] LABS: Base Excess, Venous 6 (-3-3); O2 Saturation, Venous 100 % (96-97); PCO2, Venous 26 mmHg (36-56); PO2, Venous 100 mmHg (15-58); pH, Venous 7.62 (7.33-7.66)
[2025-07-20 14:23] LABS: Lactate (Lactic Acid) 1.1 mMol/L (0.4-2.0)
[2025-07-20 14:34] LABS: Basophils # (Auto) 0.0 Thou/mm3 (0.0-0.2); Basophils % (Auto) 0 % (0-2.5); Eosinophils # (Auto) 0.0 Thou/mm3 (0.0-0.5); Eosinophils % (Auto) 0 % (0-10); Hematocrit 34.8 % (41.0-53.0); Hemoglobin 10.9 g/dL (13.5-16.0); Immature Granulocytes Auto 0.06 Thou/mm3 (0.00-0.00); Lymphocytes # (Auto) 1.0 Thou/mm3 (1.0-4.8); Lymphocytes % (Auto) 7 % (10-50); Mean Corpuscular HGB Conc 31.3 g/dl (31.0-37.0); Mean Corpuscular Hemoglobin 31.1 pg (25.0-35.0); Mean Corpuscular Volume 99 fL (80-100); Monocytes # (Auto) 0.8 Thou/mm3 (0.0-0.8); Monocytes % (Auto) 5 % (0-12); Neutrophils # (Auto) 12.8 Thou/mm3 (1.8-7.7); Neutrophils % (Auto) 87 % (37-80); Nucleated Red Blood Cell # 0.00 Thou/mm3 (0.00-0.00); Nucleated Red Blood Cell % 0 /100 WBC (0); Platelet Count 155 Thou/mm3 (140-440); RDW Standard Deviation 60.3 fL (35.1-43.9); Red Blood Count 3.50 Miln/mm3 (4.50-5.90); White Blood Count 14.7 Thou/mm3 (3.8-10.6)
[2025-07-20 14:40] LABS: INR 1.2 (0.9-1.3); Partial Thromboplastin Time 36.3 Seconds (22.0-36.0); Prothrombin Time 13.0 Seconds (9.0-12.2)
[2025-07-20 14:41] LABS: Ammonia 12 uMol/L (11-32)
[2025-07-20 14:42] LABS: B-Type Natriuretic Peptide 267 pg/mL (0-100)
[2025-07-20 14:54] LABS: Alanine Aminotransferase 13 U/L (10-49); Albumin, Serum 1.8 gm/dL (3.4-4.8); Albumin/Globulin Ratio 0.6 (1.2-2.2); Alkaline Phosphatase 252 U/L (46-116); Anion Gap 10 (7-16); Aspartate Amino Transferase < 8 U/L (0-34); BUN/Creatinine Ratio 8 Ratio (12-20); Bilirubin,Total 0.7 mg/dL (0.3-1.2); Blood Urea Nitrogen 26 mg/dL (9-23); Calcium 9.2 mg/dL (8.3-10.6); Calcium (Corrected) 11.0 mg/dL (8.5-10.1); Carbon Dioxide 24.6 mMol/L (20.0-31.0); Chloride 99 mMol/L (98-107); Creatinine (Component) 3.2 mg/dL (0.6-1.3); Globulin 3.2 gm/dL (2.3-3.5); Glucose 125 mg/dL (74-106); Magnesium 2.6 mg/dL (1.6-2.6); Osmolality,Calculated 273 (275-295); Phosphorous 4.6 mg/dL (2.4-5.1); Potassium 4.3 mMol/L (3.4-5.1); Sodium 134 mMol/L (136-145); Total Protein 5.0 gm/dL (5.7-8.2); Troponin I < 0.020 ng/mL (0.0-0.045); eGFR 21 See Note
[2025-07-20 15:13] LABS: Procalcitonin 83.11 ng/ml (0.0-0.49)
[2025-07-20 15:51] VITALS: BP 144/74; PULSE 111; RESP 28; TEMP 36.7; O2SAT 96
[2025-07-20] MEDS: cefTRIAXone 2 GM in SODIUM CHLORIDE 0.9% (Popper) 50 ML IV (16:18)
[2025-07-20] MEDS: DOXYCYCLINE INJ 100 MG in SODIUM CHLORIDE 0.9% (POP) 100 ML IV (16:18)
--- NOTE | 2025-07-20 16:58 | EVENTNT_ITS ---
Documentation for date of: 07/20/25 Event Note Event Note: Medicine team reached out to the patient's nephew, Roberto Belcher, who is also the patient's medical decision-maker regarding the goals of the patient's care. The patient's nephew was informed about how the patient was sent from dialysis due to concerns of altered mentation, and was found to have pneumonia. The nephew was also informed about how the patient stopped eating for about a week, and how the patient had decided to proceed with comfort measures on top of his DNR/DNI status after he was discharged from the hospital on 07/09. It was explained to the patient's nephew that if he would like, the medicine team would be willing to admit the patient and treat the patient's pneumonia with antibiotics. The patient's nephew noted that he is well aware of what is going on with his uncle, and how he had decided to pursue comfort care measures for his uncle after his uncle's most recent hospitalization stay. The nephew also noted how he is not sure why the patient is continuing to receive dialysis as part of the reason for the comfort measures is because the patient was unable to tolerate a full dialysis session. The patient's nephew is well aware of what comfort measures mean as his mother is currently on comfort care measures as well. The patient's nephew stated that he would prefer the patient be sent back to [facility] to continue with comfort care measures. The medicine team repeated the question to the patient's nephew about his decision, and the patient's nephew continued to endorse that he prefers the patient be sent back to pursue comfort care measures. As a result, medicine team decided not to admit the patient to respect the patient's medical decision makers wishes. Patient plan of care was discussed with attending physician Dr. Conte. Senior resident Dr. Gentile (PGY-2) was present during the call. Rex Henson, PGY1
[2025-07-20] MEDS: ACETAMINOPHEN 500 MG TABLET PO (16:59)
[2025-07-20 17:00] VITALS: PULSE 106; RESP 12; O2SAT 100
--- NOTE | 2025-07-20 20:00 | PC.NURSE ---
Report given to ANALISA Castro at [facility]
[2025-07-20 20:05] VITALS: BP 142/88; PULSE 105; RESP 16; TEMP 37.2; O2SAT 100
== END 2025-07-20 20:05 | disposition skilled nursing facility (03) ==
PROVIDERS: Emergency Provider Emergency Medicine
DX: A41.9 Sepsis, unspecified organism (principal); J18.9 Pneumonia, unspecified organism; J96.01 Acute respiratory failure with hypoxia; I12.0 Hypertensive chronic kidney disease with stage 5 chronic kidney disease or end stage renal disease; N18.6 End stage renal disease; E11.22 Type 2 diabetes mellitus with diabetic chronic kidney disease; E78.00 Pure hypercholesterolemia, unspecified; Z79.4 Long term (current) use of insulin; Z90.5 Acquired absence of kidney; Z51.5 Encounter for palliative care
CPT/HCPCS: 36415; 71045; 80053; 80307; 81001; 82140; 82803; 83605; 83735; 83880; 84100; 84145; 84484; 85025; 85610; 85730; 87040; 87811; 93005; 96365; 99284; J0696; J3490; J7050; A9270

== ENCOUNTER 2025-08-04 08:19 | Outpatient (AMB) | payer MEDICARE, MEDICAID, SELFPAY ==
[2025-08-04 08:27] VITALS: BP 110/74; PULSE 52; RESP 16; TEMP 36.4; O2SAT 96; BMI 26.2
--- NOTE | 2025-08-04 08:27 | PD.ORTHCLVIS ---
Vital signs 08/04/25 08:27 Height 1.75 m Height Method Stated Weight 80.739 kg Weight Measurement Method Stated by Patient BMI 26.2 BP 110/74 Blood Pressure Source Automatic Cuff Blood Pressure Location Left Upper Arm Position Sitting Respiration 16 Pulse 52 L Pulse Source Monitor Temp 97.5 F Temp Source Temporal Artery Scan Pulse Oximetry (%) 96 Oxygen Delivery Method Nasal Cannula Med/Allergies Allergies & Medications Allergies house dust Allergy (Verified 08/04/25 08:29) Medication Reconciliation cholecalciferol (vitamin D3) 50 mcg (2,000 unit) capsule (Vitamin D3) 2,000 unit PO QDAY #0 caps 12/19/15 [History Confirmed 08/04/25] vitamin B complex 1 tab PO QDAY 04/01/19 [History Confirmed 08/04/25] nortriptyline 25 mg capsule 25 mg PO HS 11/12/20 [History Confirmed 08/04/25] hydroxyzine HCl 10 mg tablet 10 mg PO QPM PRN itching 03/07/24 [History Confirmed 08/04/25] insulin aspart U-100 100 unit/mL (3 mL) subcutaneous pen (Novolog FlexPen U-100 Insulin aspart) 5 unit subcut AC 03/07/24 [History Confirmed 08/04/25] aluminum-mag hydroxide-simethicone 200 mg-200 mg-20 mg/5 mL oral susp (Maalox Advanced) 10 ml PO QID #3,000 mL 02/15/25 [Rx Confirmed 08/04/25] sucralfate 100 mg/mL oral suspension 10 ml PO Q6H 06/15/25 [History Confirmed 08/04/25] hydrocodone 5 mg-acetaminophen 325 mg tablet 1 tab PO Q6H PRN pain #14 tabs 06/19/25 [Rx Confirmed 08/04/25] bisacodyl 10 mg rectal suppository (Dulcolax (bisacodyl)) 10 mg [place] QDAY PRN constipation 07/06/25 [History Confirmed 08/04/25] sevelamer carbonate 0.8 gram oral powder packet (Renvela) 0.8 g PO TID 07/06/25 [History Confirmed 08/04/25] sodium phosphates 19 gram-7 gram/118 mL enema (Enema) 118 ml [place] QDAY PRN constipation 07/06/25 [History Confirmed 08/04/25] pantoprazole 40 mg tablet,delayed release 40 mg PO QDAY #30 tabs 07/09/25 [Rx Confirmed 08/04/25] sucralfate 100 mg/mL oral suspension 1 g (10 mL) PO QID 30 days #1,200 mL 07/09/25 [Rx Confirmed 08/04/25] Exam Exam Patient is in no acute distress and is cooperative with the examination today. Patient has a normal mood and affect. Breathing is nonlabored. In no respiratory distress. Bilateral extremities were evaluated and demonstrates sensation intact to light touch. Palpable pedal pulses are present. No significant edema is present. Bilateral hip incisions are clean dry and intact. There is no drainage. He has no pain with logroll. Leg lengths are equal. He has no x-rays with him today Assessment and Plan Problem List (1) Bilateral hip fractures: Status: Acute Plan: Patient is a 65-year-old male with bilateral hip pain and bilateral hip fractures. We discussed different treatment options. I need x-rays to see how his fractures are doing currently. He is on hospice unfortunately due to worsening medical issues. We will see him back after his x-rays are done Office Procedures GNS Level of Care Nursing/Assessment Patient Status: Initial/New Patient Nursing Assessment/Reassesment: Medication Reconciliation, Update PMH in EMR and Vital Signs Coordination of Care: Complex Care and Chronic Disease 1-5, Education Complex Pt/Fam, Consent,records obtained, informed consent, Lab and Imaging orders, Results/Orders obtained and Staff clarify orders Special Needs: Language special needs New Patient Charge New Patient Point Assignment: [id number] New Patient Point Charge: BEVERAGE SPECIALIST Level 3 ([id number]) MA Intake Visit Data Collection New Patient or Established: New Patient (never been to [facility]) Reason for Visit:: 2 WEEK POST OP Seen by Clinical Staff ONLY (RN/MA): No Laundry Worker Required: No PCP or OBGYN visit in last 3 months: Yes Hx Now: No Do You Feel Safe at Home: Yes Authorities Contacted: N/A Questionairres Past Medical History Past Medical History Have you ever been diagnosed with any of the following: Neurological Problems Transient Ischemic Attacks (TIA): Yes Seizures: No Cardiology Problems Hypercholesterolemia: Yes Congestive Heart Failure: No Hypertension: Yes Respiratory Problems Chronic Obstructive Pulmonary Disease (COPD): No Asthma: Yes Pneumonia: Yes Sleep Apnea: Yes Stomache/Intestinal Problems Ulcer: Yes Gastroesophageal Reflux Disease: Yes Genital/Urinary Problems Renal Disease: Yes Kidney Stones: Yes Dialysis: Yes Musculoskeletal Problems Arthritis: Yes Head,Eye,Nose,Throat Problems Cataracts: No Endocrine Problems Diabetes Mellitus Type 1: No Diabetes Mellitus Type 2: Yes Hypoglycemia: Yes Blood Problems Anemia: Yes Sickle Cell Disease: No Other Problems Falls: Yes Blood Transfusions: No Anesthesia Reactions: No Chicken Pox: Yes Measles: Yes Mumps: Yes Cancer: No Subjective Visit Visit for: new patient and hip Immunization / Flu Flu Vaccine in the Last 12 Months: Yes Flu Vaccine Exclusion Criteria: Already Received History of Present Illness Chief complaint: 2 WEEK POST OP Dmitry Gonzalez is a 65-year-old male with bilateral intertrochanteric fracture status post cephalomedullary nailing. He is 6 weeks postop. He has no drainage at all. He is now on hospice due to worsening dialysis and kidney failure Personal History Red flag PMH: none BMI Counceling provided: Yes Ambulatory data Ambulatory device: other (specify) (CHAIR) Treatments Number of previous injections: 0 Improvement with previous injections: No Number of Physical Therapy sessions: 0 Improvement with PT: No Improvement with NSAIDS: no Review of Systems Review of Systems: All systems negative unless otherwise noted in HPI.
== END 2025-08-04 08:34 | disposition home or self-care (01) ==
LOC: HODSRG 08:19
PROVIDERS: Supervising Provider Orthopaedic Surgery Adult Reconstructive Orthopaedic Surgery; Visit Provider Orthopaedic Surgery Adult Reconstructive Orthopaedic Surgery
DX: S72.002D Fracture of unspecified part of neck of left femur, subsequent encounter for closed fracture with routine healing (principal); S72.001D Fracture of unspecified part of neck of right femur, subsequent encounter for closed fracture with routine healing; X58.XXXD Exposure to other specified factors, subsequent encounter; M25.552 Pain in left hip; M25.551 Pain in right hip; E78.00 Pure hypercholesterolemia, unspecified; K21.9 Gastro-esophageal reflux disease without esophagitis; I12.9 Hypertensive chronic kidney disease with stage 1 through stage 4 chronic kidney disease, or unspecified chronic kidney disease; E11.22 Type 2 diabetes mellitus with diabetic chronic kidney disease; N18.9 Chronic kidney disease, unspecified; Z99.2 Dependence on renal dialysis; Z51.5 Encounter for palliative care; Z86.73 Personal history of transient ischemic attack (TIA), and cerebral infarction without residual deficits
CPT/HCPCS: 99203; G0463